=== PATIENT | male | born 1960 | race Caucasian/White ===

== ENCOUNTER 2019-09-01 06:36 | Observation (INO) | payer OTHER, MEDICAID, SELFPAY ==
[2019-09-01] VITALS (8 sets, daily range): BP systolic 147–184; BP diastolic 89–110; PULSE 66–102; RESP 15–19; TEMP 36.3–36.8; O2SAT 95–100; BMI 23.6
[2019-09-01 07:14] LABS: Add Manual Diff / Slide Review NO; Basophils Absolute Auto 100 /uL (0-100); Basophils Percent Auto 0.9 % (0-2); Eosinophils Absolute Auto 0 /uL (0-450); Eosinophils Percent Auto 0.1 % (2-4); Hematocrit 46.7 % (41-53); Hemoglobin 16.3 g/dL (13.5-17.5); Lymphocytes Absolute Auto 1600 /uL (1100-4500); Lymphocytes Percent Auto 11.4 % (25-40); Mean Corpuscular HGB Conc 34.9 % (30-36); Mean Corpuscular Hemoglobin 35.5 PG (26-34); Mean Corpuscular Volume 101.6 fL (80-100); Monocytes Absolute Auto 1100 /uL (0-900); Monocytes Percent Auto 7.7 % (3-14); Neutrophils Absolute Auto 11400 /uL (1500-7000); Neutrophils Percent Auto 79.9 % (50-75); Platelet Count 203 X10^3/uL (150-400); Red Blood Cell Count 4.59 X10^6/uL (4.5-5.9); Red Cell Distribution Width 13.3 % (11.6-14.8); White Blood Cell Count 14.3 X10^3/uL (4.5-11.0)
[2019-09-01 07:15] LABS: INR 0.9 (0.9-1.3); Prothrombin Time 10.4 SECONDS (10.1-12.7)
[2019-09-01 07:18] LABS: PTT Partial Thromboplastin Tim 31 SECONDS (26.4-36.2)
[2019-09-01 07:23] LABS: Alanine Aminotransferase 46 IU/L (<50); Albumin 4.4 g/dL (3.5-5.0); Albumin Globulin Ratio 1.3 (1.0-2.8); Aspartate Aminotransferase 88 IU/L (17-59); BUN Creatinine Ratio 14.3 (6-22); Bilirubin Total 2.6 mg/dL (0.2-1.3); Blood Urea Nitrogen 10 mg/dL (9-20); Carbon Dioxide 24 mmol/L (22-32); Chloride 97 mmol/L (98-107); Estimated Glomerular Filt Rate > 60.0 mL/min (>60); Globulin 3.5 g/dL (1.7-4.1); Glucose 145 mg/dL (70-100); Lipase 1171 U/L (23-300); Sodium 132 mmol/L (137-145); Total Protein 7.9 g/dL (6.3-8.2)
[2019-09-01 07:25] LABS: HEMOLYSIS 89 (0-50)
[2019-09-01 07:26] LABS: Alkaline Phosphatase 244 U/L (38-126); Potassium 3.9 mmol/L (3.4-5.1)
--- NOTE | 2019-09-01 07:33 | ED.ABDPAIN ---
HPI - Abdominal Pain General Chief Complaint: Abdominal Pain Stated Complaint: pancreatic pain Time Seen by Provider: 09/01/19 07:23 Source: patient Mode of arrival: Family Vehicle Limitations: no limitations History of Present Illness HPI narrative: Patient comes emergency department complaining of upper abdominal pain and nausea/vomiting for the last 2 days. The pain is located in the epigastric area to left upper quadrant, and radiates through to the back. Patient rates it as a 9/10. Nothing makes better or worse. Patient states feels similar to when he had alcohol induced pancreatitis about a year to ago. Patient states that he has not had any fevers. No chills. No dysuria. No blood in his stools or vomit. One episode of diarrhea, but this has not been ongoing. No chest pain, shortness of breath, or cough. Patient states he has had mild rhinorrhea and headache. no sick contacts. No other complaints at this time. Related Data Home Medications Medication Instructions Recorded Confirmed loratadine [Claritin] 10 mg PO DAILY PRN 09/01/19 09/01/19 Allergies Allergy/AdvReac Type Severity Reaction Status Date / Time lactase [From DAIRY AID] Allergy Unknown STOMACH Verified 12/10/18 10:55 UPSET Review of Systems Constitutional Constitutional: Denies chills, Denies fatigue, Denies fever(s), Denies frequent falls, Denies lethargy and Denies weakness Eyes Eyes: Denies change in vision, Denies eye discharge, Denies irritation and Denies loss of vision ENT Ears, Nose, Mouth, and Throat: Denies change in voice, Denies dizziness, Denies neck pain, Denies sore throat and Denies throat swelling Cardiovascular Cardiovascular: Denies chest pain, Denies irregular heart rhythm, Denies lightheadedness, Denies palpitations, Denies dyspnea, Denies dyspnea on exertion and Denies orthopnea Respiratory Respiratory: Denies cough, Denies dyspnea, Denies dyspnea on exertion and Denies wheezing Gastrointestinal Gastrointestinal: Reports abdominal pain, Denies change in bowel habits, Reports diarrhea, Reports nausea and Reports vomiting Genitourinary Genitourinary: Denies hematuria, Denies flank pain, Denies urinary incontinence and Denies urinary urgency Musculoskeletal Musculoskeletal: Denies back pain, Denies muscle weakness, Denies neck pain, Denies numbness and Denies tingling Integumentary/Breasts Skin/Breast: Denies pruritus, Denies erythema, Denies rash and Denies wounds Neurologic Neurologic: Denies behavioral changes, Denies confusion, Denies dizziness, Denies frequent falls, Denies loss of vision, Denies numbness, Denies tingling and Denies weakness Psychiatric Psychiatric: Denies anxiety, Denies behavioral changes, Denies confusion, Denies depression, Denies homicidal ideation and Denies suicidal ideation Endocrine Endocrine: Denies fatigue, Denies flushing and Denies palpitations Hematologic/Lymphatic Hematologic/Lymphatic: Denies easy bruising Allergic/Immunologic Allergic/Immunologic: Denies urticaria, Denies throat swelling and Denies wheezing Patient History Medical History Alcohol abuse (Acute) Alcoholic pancreatitis (Acute) Amputation finger (Acute) Back pain (Acute) Chronic pancreatitis (Acute) Fracture of finger, distal phalanx, open (Acute) Fracture of finger, middle phalanx, open (Acute) Onychomycosis (Chronic) Seizures (Acute) Social History household members: none Smoking Status: Current every day smoker alcohol intake: current substance use type: marijuana alcohol intake frequency: 0-2 drinks per day Substance Use Type: marijuana Exam Initial Vital Signs Initial Vital Signs: Vital Signs Temperature 97.7 F 09/01/19 06:49 Pulse Rate 88 09/01/19 06:49 Respiratory Rate 15 09/01/19 06:49 Blood Pressure 182/93 H 09/01/19 06:49 Pulse Oximetry 97 09/01/19 06:49 Const General: cooperative and well developed Nutritional Appearance: well nourished Orientation: alert, awake, oriented x3 and not confused [facility] Head: normocephalic and atraumatic Ears: external ears normal Nose: external nose normal and No nasal discharge Face and sinus: face symmetric and No dry mucous membranes Mouth: oral mucosae normal and moist mucous membranes Teeth and gingiva: dentition normal Eyes General: appearance normal, both eyes and all related structures Eyelids: eyelids normal Conjunctivae: conjunctivae normal Sclera: sclerae normal Pupils: PERRL EOM: EOM intact bilaterally Neck Neck: normal visual inspection, trachea midline, No lymphadenopathy, No midline deformity and No JVD Lymphatic: No lymphedema Chest Chest: normal inspection of the chest Resp Effort & Inspection: normal respiratory effort, able to speak in complete sentences, no respiratory distress and no use of accessory muscles Auscultation: clear to auscultation bilaterally, no rales, no rhonchi and no wheezes Cardio Rate: regular rate Rhythm: regular rhythm Heart Sounds: no click, no gallops, no murmurs and no rubs Pulses: normal peripheral pulses GI Inspection: non-distended Palpation: soft, no hepatosplenomegaly, No guarding, No pulsatile mass and tender (Moderate, epigastric and left upper quadrant.) Auscultation: normal bowel sounds Back/Spine/Pelvis Back: No CVA tenderness Cervical Spine: cervical ROM normal and No pain with cervical ROM Thoracic/Lumbar Spine: thoracic and lumbar spine normal to inspection Skin General: no rashes or lesions noted, No jaundice and No petechiae Neuro General: alert, oriented x3, gait normal and no focal motor deficits Speech: speech normal Extrem General: full ROM, no clubbing, cyanosis or edema, no pedal edema and no calf tenderness Psych Appearance: well kempt Mental Status: mental status grossly normal Attitude: cooperative Thought Content: normal and suicidality Judgment: judgment good Course Course Course Narrative: Patient was treated symptomatically in the emergency department with IV fluids, Zofran, and Dilaudid. He was worked up with labs, including CBC, CMP, and lipase. Lipase was found to be elevated at over 1100, and patient's white blood cell count was also elevated. As such, I did feel he should be admitted to the hospital, and I spoke with Dr. Sun after speaking with Dr. Keller and Dr. Lopez who stated patient needed to be admitted to the hospitalist service. She did agree to admit the patient to her service. At her request a CT of the abdomen and pelvis was performed and found to be unremarkable. Orders Ordered: Bisacodyl (Dulcolax) 10 mg [place] DAILY PRN PRN Reason: Constipation Heparin Sodium (Porcine) (Heparin) 5,000 unit SUBCUT BID ELEAZAR Sodium Chloride (Normal Saline 0.9%) 1,000 mls @ 150 mls/hr IV CONT ELEAZAR Last Admin: 09/01/19 12:03 Dose: 150 mls/hr Documented by: ACHELLOYD Influenza Virus Vaccine (Flu Vaccine) 0.5 ml IM .ONCE ONE Stop: 12/06/19 09:01 Morphine Sulfate (Morphine) 2 mg IV Q4HR PRN PRN Reason: Pain, Moderate (4-6) Last Admin: 09/01/19 16:04 Dose: 2 mg Documented by: Admin: 09/01/19 12:02 Dose: 2 mg Documented by: HOLLY Naloxone HCl (Narcan) 0.2 mg IV Q2MIN PRN PRN Reason: Opiate Reversal Ondansetron HCl (Zofran) 4 mg IV Q4HR PRN PRN Reason: Nausea And Vomiting Last Admin: 09/01/19 17:03 Dose: 4 mg Documented by: BALBINA Sodium Chloride (Normal Saline 0.9% Flush) 10 ml IV PRN PRN PRN Reason: Flush Discontinued Medications Hydromorphone HCl (Dilaudid) 1 mg IV NOW ONE Stop: 09/01/19 07:33 Last Admin: 09/01/19 07:37 Dose: 1 mg Documented by: BONNIE Hydromorphone HCl (Dilaudid) 1 mg IV NOW ONE Stop: 09/01/19 08:38 Last Admin: 09/01/19 08:55 Dose: 1 mg Documented by: BONNIE Sodium Chloride (Normal Saline 0.9%) 1,000 mls @ 1,000 mls/hr IV BOLUS ONE Stop: 09/01/19 08:31 Last Infusion: 09/01/19 08:40 Dose: 0 mls/hr Documented by: Admin: 09/01/19 07:37 Dose: 1,000 mls/hr Documented by: BONNIE Sodium Chloride (Normal Saline 0.9%) 1,000 mls @ 1,000 mls/hr IV BOLUS ONE Stop: 09/01/19 09:29 Last Infusion: 09/01/19 09:55 Dose: 0 mls/hr Documented by: Admin: 09/01/19 08:56 Dose: 1,000 mls/hr Documented by: BONNIE Lorazepam (Ativan) 1 mg IV NOW ONE Stop: 09/01/19 08:38 Last Admin: 09/01/19 08:55 Dose: 1 mg Documented by: BONNIE Ondansetron HCl (Zofran) 4 mg IV NOW ONE Stop: 09/01/19 07:33 Last Admin: 09/01/19 07:36 Dose: 4 mg Documented by: BONNIE Prochlorperazine (Compazine) 10 mg IV NOW ONE Stop: 09/01/19 08:38 Last Admin: 09/01/19 08:55 Dose: 10 mg Documented by: BONNIE Vital Signs Vital signs: Vital Signs - 8 hr 09/01/19 06:49 Temperature 97.7 F Pulse Rate 88 Respiratory Rate 15 Blood Pressure 182/93 H Pulse Oximetry 97 MDM - Abdominal Pain Medical Records Attestation: I reviewed the patient's medical records. Lab Data Attestation: I reviewed the patient's lab results. Result diagrams: 09/01/19 07:00 09/01/19 07:00 Labs: Lab Results 09/01/19 09/01/19 09/01/19 Range/Units 07:00 07:00 07:00 WBC 14.3 H (4.5-11.0) X10^3/uL RBC 4.59 (4.5-5.9) X10^6/uL Hgb 16.3 (13.5-17.5) g/dL Hct 46.7 (41-53) % MCV 101.6 H (80-100) fL MCH 35.5 H (26-34) PG MCHC 34.9 (30-36) % RDW 13.3 (11.6-14.8) % Plt Count 203 (150-400) X10^3/uL Neut % (Auto) 79.9 H (50-75) % Lymph % (Auto) 11.4 L (25-40) % [place] % (Auto) 7.7 (3-14) % Eos % (Auto) 0.1 L (2-4) % Baso % (Auto) 0.9 (0-2) % Neut # (Auto) 17542 H (2642-5762) /uL Lymph # (Auto) 1600 (7347-7501) /uL [place] # (Auto) 1100 H (0-900) /uL Eos # (Auto) 0 (0-450) /uL Baso # (Auto) 100 (0-100) /uL PT 10.4 (10.1-12.7) SECONDS INR 0.9 (0.9-1.3) APTT 31 (26.4-36.2) SECONDS Sodium 132 L (137-145) mmol/L Potassium 3.9 (3.4-5.1) mmol/L Chloride 97 L (98-107) mmol/L Carbon Dioxide 24 (22-32) mmol/L BUN 10 (9-20) mg/dL Creatinine 0.70 (0.66-1.25) mg/dL Estimated GFR > 60.0 (>60) mL/min BUN/Creatinine Ratio 14.3 (6-22) Glucose 145 H (70-100) mg/dL Calcium 9.0 (8.4-10.2) mg/dL Total Bilirubin 2.6 H (0.2-1.3) mg/dL AST 88 H (17-59) IU/L ALT 46 (<50) IU/L Alkaline Phosphatase 244 H (38-126) U/L Total Protein 7.9 (6.3-8.2) g/dL Albumin 4.4 (3.5-5.0) g/dL Globulin 3.5 (1.7-4.1) g/dL Albumin/Globulin Ratio 1.3 (1.0-2.8) Lipase 1171 H (23-300) U/L Imaging Data CT scan - abdomen: Radiologist's impression: EDURE: CT ABDOMEN PELVIS W CON INDICATIONS: abd pain/pancreatitis/leukocytosis TECHNIQUE: After the administration of intravenous contrast, 5 mm thick sections acquired from the diaphragm to the symphysis. 5 mm coronal and sagittal reformats were acquired. For radiation dose reduction, the following was used: automated exposure control, adjustment of mA and/or kV according to patient size. COMPARISON: None. FINDINGS: Image quality: Excellent. ABDOMEN: Lung bases: Lung bases are clear. Heart size is normal. Solid organs: Liver is normal in size and enhancement. Diffuse hepatic steatosis. Gallbladder is unremarkable. Biliary system is non dilated. Pancreas enhances normally. There is vague inflammatory change in the fat surrounding the pancreas which may represent chronic changes secondary to previous pancreatitis. No clear CT evidence of acute pancreatitis. Spleen is normal in size and enhancement. No adrenal nodules. Kidneys demonstrate normal size and enhancement, without hydronephrosis. Peritoneum and bowel: Bowel loops demonstrate normal wall thickness and caliber. No free fluid or air. Diverticulosis without evidence of diverticulitis. Nodes and vessels: No retroperitoneal or mesenteric adenopathy by size criteria. Numerous tiny peripancreatic lymph nodes are likely reactive in nature. No suspicious lymph nodes. Aorta and inferior vena cava are normal in size. Miscellaneous: No ventral hernias. PELVIS: Genitourinary: Very mild bladder wall thickening. Miscellaneous: No inguinal hernias or adenopathy. Bones: No suspicious bony lesions. No vertebral body compression fractures. IMPRESSION: 1. Vague peripancreatic inflammatory change and adjacent fat may be chronic. No clear CT evidence of acute pancreatitis. 2. Hepatic steatosis. 3. Diverticulosis Dictated by: Marshall Johnson M.D. on 09/01/2019 at 8:57 Approved by: Marshall Johnson M.D. on 09/01/2019 at 9:01 Discharge Plan Departure Patient Disposition: Admitted as Observation Clinical Impression: Alcoholic pancreatitis Qualifiers: Chronicity: acute Acute pancreatitis complication: no infection or necrosis Qualified Code(s): K85.20 - Alcohol induced acute pancreatitis without necrosis or infection Discharge Date/Time: 09/01/19 10:07 Admit Date/Time: 09/01/19 08:48 Admit Provider: Nereida Sun
[2019-09-01] MEDS: ONDANSETRON 4 MG/2 ML INJ IV ×2 (07:36→17:03)
[2019-09-01] MEDS: SODIUM CHLORIDE 0.9% 1,000 ML 1000 ML IV ×2 (07:37→08:56)
[2019-09-01] MEDS: HYDROMORPHONE 1 MG INJ IV ×2 (07:37→08:55)
--- NOTE | 2019-09-01 08:28 | DI.CT.S_ITS ---
PROCEDURE: CT ABDOMEN PELVIS W CON INDICATIONS: abd pain/pancreatitis/leukocytosis TECHNIQUE: After the administration of intravenous contrast, 5 mm thick sections acquired from the diaphragm to the symphysis. 5 mm coronal and sagittal reformats were acquired. For radiation dose reduction, the following was used: automated exposure control, adjustment of mA and/or kV according to patient size. COMPARISON: None. FINDINGS: Image quality: Excellent. ABDOMEN: Lung bases: Lung bases are clear. Heart size is normal. Solid organs: Liver is normal in size and enhancement. Diffuse hepatic steatosis. Gallbladder is unremarkable. Biliary system is non dilated. Pancreas enhances normally. There is vague inflammatory change in the fat surrounding the pancreas which may represent chronic changes secondary to previous pancreatitis. No clear CT evidence of acute pancreatitis. Spleen is normal in size and enhancement. No adrenal nodules. Kidneys demonstrate normal size and enhancement, without hydronephrosis. Peritoneum and bowel: Bowel loops demonstrate normal wall thickness and caliber. No free fluid or air. Diverticulosis without evidence of diverticulitis. Nodes and vessels: No retroperitoneal or mesenteric adenopathy by size criteria. Numerous tiny peripancreatic lymph nodes are likely reactive in nature. No suspicious lymph nodes. Aorta and inferior vena cava are normal in size. Miscellaneous: No ventral hernias. PELVIS: Genitourinary: Very mild bladder wall thickening. Miscellaneous: No inguinal hernias or adenopathy. Bones: No suspicious bony lesions. No vertebral body compression fractures. IMPRESSION: 1. Vague peripancreatic inflammatory change and adjacent fat may be chronic. No clear CT evidence of acute pancreatitis. 2. Hepatic steatosis. 3. Diverticulosis Dictated by: Marshall Johnson M.D. on 09/01/2019 at 8:57 Approved by: Marshall Johnson M.D. on 09/01/2019 at 9:01
[2019-09-01] MEDS: LORazepam 2 MG/ML INJ 1 MG IV (08:55)
[2019-09-01] MEDS: PROCHLORPERAZINE 10 MG/2 ML VIAL IV (08:55)
[2019-09-01] MEDS: MORPHINE 2 MG/ML INJ IV ×3 (12:02→20:17)
[2019-09-01] MEDS: SODIUM CHLORIDE 0.9% 1,000 ML 150 ML IV ×2 (12:03→20:18)
--- NOTE | 2019-09-01 14:01 | PC.NURSE ---
Day Shift- Report rec'd from JEFF Sargent in ED at 0948. Pt arrived to unit via stretcher at 1000, assisted to bed by RUBBER EXTRUSION MACHINE OPERATOR. Pt oriented to call light, NPO status. admission complete. Pt states he smokes 1 pack per day, 5-6 beers high octane daily. Pt's mother Carmen states pt has had alcohol withdrawal seizures in the community before. Pt aware of NPO status, mouth moisturizer and mouth swabs given by RUBBER EXTRUSION MACHINE OPERATOR. BP elevated on admit, pt and his mother state that his BP is always high when in the hospital and in the past when having gone to PCP, BP has been WNL. Dr. Gallo notified of pt's arrival around 1005. Called and spoke with Dr. gallo at 1245 regarding pt's mother's request for a plan of care update who will be leaving and coming back in the afternoon with Advance directive paperwork. Dr. Gallo to see pt today. IVF started per order.
--- NOTE | 2019-09-01 16:54 | PC.NURSE ---
Assumed care of pt at 1500. Pt resting in bed during bedside hand-off. BP elevated, reports pain. Medicating per mar for back and LUQ abd pain. Reports mild nausea. Dr. Sun notified. Rec VVO for Zofran. Supportive mother at bedside. Educated pt on ETOH withdrawal and cessation.
--- NOTE | 2019-09-01 19:00 | PM.HP.1 ---
History of Present Illness History of Present Illness Date Patient Seen: 09/01/19 Chief complaint: pancreatic pain Narrative: Dom sims is a 59-year-old male with past medical history significant for hypertension, alcohol dependence with history of alcohol withdrawal, and tobacco dependence who presented to the ED with progressive worsening abdominal pain. The patient reports that he began having mid abdominal pain 2 days ago. The pain is sharp in quality and radiates straight through to his back. He rates the pain at its worst a +10/10 in severity and is currently a +6/10 in severity. He is had associated nausea and vomiting. He reports that he has had pancreatitis with alcohol withdrawal 2 years ago and the pain is similar to that episode of pancreatitis. He reports alcohol dependence since high school and has underwent inpatient treatment several times. He currently endorses drinking ?at least a 6 pack of beer per night.? He will occasionally drink vodka as well. He is currently looking for it inpatient treatment locally. He recently moved back to [place] from [place] due to the of his stepfather. He currently complains of abdominal pain with nausea. He otherwise denies headache, chest pain, shortness of breath, fever, chills, dysuria, diarrhea or constipation. He had several episodes of diarrhea 2 days ago. He is mildly tremulous. He denies symptoms and does not feel like he is going through alcohol withdrawal. He denies headache, anxiety, hallucinations, delusions, paranoia, lightheadedness or dizziness, tremulousness, or irritability. In the ED the patient was found to have a lipase of 1171. Requested CT abdomen and pelvis be performed which demonstrated vague peripancreatic inflammatory change and adjacent fat may be chronic without clear CT evidence of acute pancreatitis and hepatic steatosis. The patient was admitted observation for acute pancreatitis. Patient History Medical History (Updated 09/02/19 @ 07:59 by Nereida Sun DO) Alcohol abuse (Acute) Alcoholic pancreatitis (Acute) Amputation finger (Acute) Back pain (Acute) Chronic pancreatitis (Acute) Fracture of finger, distal phalanx, open (Acute) Fracture of finger, middle phalanx, open (Acute) Onychomycosis (Chronic) Seizures (Acute) Surgical History History of surgical amputation of finger (Acute) Family & Social History Family History Mother Osteoarthritis Father Alcohol abuse Medical history unknown Social History: household members none Prior Living Arrangements House Safety & Behavioral: Feels Safe in Current Yes Environment Been Physically Hurt or No Threatened By a Person Suicidal Ideation Description None Suicide Plan Description No Plan Tobacco & Substance use: Tobacco type cigarettes Smoking Status Current every day smoker Smoking packs per day 1 alcohol intake current alcohol intake frequency 3 or more drinks per day Substance Use Type marijuana The patient is . He was to his for 16 years and she of pancreatic cancer. He has 2 healthy children, a son and a daughter. He is a current smoker, 1 ppd times 40 years. He drinks at least a six-pack of beer a night and sometimes vodka. He smokes marijuana occasionally, approximately once a month. He denies any other recreational drug use. 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 Meds Home Medications and Allergies Home Medications Medication Instructions Recorded Confirmed Type loratadine [Claritin] 10 mg PO DAILY PRN 09/01/19 09/01/19 History Allergies Allergy/AdvReac Type Severity Reaction Status Date / Time lactase [From DAIRY AID] Allergy Unknown STOMACH Verified 12/10/18 10:55 UPSET Review of Systems Review of Systems Narrative: A 10 system comprehensive review of systems was conducted with the patient and found to be negative except as above in the History of Present Illness. Exam Vital Signs (past 8 hours): - 09/01/19 13:55 09/01/19 15:25 Temperature 97.4 F L Pulse Rate 71 66 Respiratory Rate 18 Blood Pressure 181/99 H 169/101 H Pulse Oximetry 99 Oxygen Delivery Method Room Air Oxygen Flow Rate 0 Narrative Exam Narrative: General: Older gentleman lying in bed and in no acute distress, appears mildly uncomfortable, well-developed, well-nourished, anxious and mildly tremulous but otherwise appropriately interactive. HEENT: Normocephalic, atraumatic. External ears without defect. Pupils equal, round, and reactive to light and accommodation. Anicteric sclerae, moist conjunctivae, and no lid lag. Oropharynx free of erythema and cobble stoning with moist mucosa. Neck: Supple with full range of motion. No jugular venous distension. No bruits. No lymphadenopathy or thyromegaly. Cardiovascular: Regular rate and rhythm without murmurs, rubs, or gallops appreciated Pulmonary: Clear to auscultation bilaterally without crackles, wheezes, or rhonchi. Normal respiratory effort with no use of accessory muscles. Abdomen: Soft, bowel sounds present, mild mid abdominal pain, nondistended. No hepatosplenomegaly or masses appreciated. Extremities: No clubbing, cyanosis, or edema. Skin: Normal temperature, turgor, and texture; no rash, ulcers, or subcutaneous nodules appreciated. No stigmata of liver disease such as spider angiomata, telangiectasias, palmar erythema, caput medusae, or asterixis. Neurological: Cranial nerves grossly intact. Psychiatric: Anxious mood and flat affect. Alert and oriented to person, place, and time. Objective Labs Result Diagrams: 09/02/19 06:38 09/02/19 06:38 Labs: Laboratory Results - last 24 hr 09/01/19 09/01/19 09/01/19 07:00 07:00 07:00 WBC 14.3 H RBC 4.59 Hgb 16.3 Hct 46.7 MCV 101.6 H MCH 35.5 H MCHC 34.9 RDW 13.3 Plt Count 203 Neut % (Auto) 79.9 H Lymph % (Auto) 11.4 L Colbert % (Auto) 7.7 Eos % (Auto) 0.1 L Baso % (Auto) 0.9 Neut # (Auto) 75639 H Lymph # (Auto) 1600 Colbert # (Auto) 1100 H Eos # (Auto) 0 Baso # (Auto) 100 PT 10.4 INR 0.9 APTT 31 Sodium 132 L Potassium 3.9 Chloride 97 L Carbon Dioxide 24 BUN 10 Creatinine 0.70 Estimated GFR > 60.0 BUN/Creatinine Ratio 14.3 Glucose 145 H Calcium 9.0 Total Bilirubin 2.6 H AST 88 H ALT 46 Alkaline Phosphatase 244 H Total Protein 7.9 Albumin 4.4 Globulin 3.5 Albumin/Globulin Ratio 1.3 Lipase 1171 H Assessment & Plan Assessment & Plan narrative: Dom sims is a 59-year-old male with past medical history significant for hypertension, alcohol dependence with history of alcohol withdrawal, and tobacco dependence who presented to the ED with progressive worsening abdominal pain. 1. Acute alcoholic pancreatitis, present on admission. Active. -Patient presented with mid abdominal pain, nausea and vomiting. -Patient has alcohol dependency with his last drink 2 days ago. Patient has history of pancreatitis with alcohol withdrawal 2 years ago. -CT abdomen and pelvis with contrast demonstrated vague peripancreatic inflammatory change and adjacent fat may be chronic with no clear CT evidence of acute pancreatitis and hepatic steatosis. -Lipase 1171. Continue to trend lipase daily. -Continue bowel rest with NPO status. Plan to advance diet as tolerated to a clear liquid diet tomorrow. -Continue IV fluids with normal saline at 150 mL/hr. -Continue pain control with morphine 2 mg every 4 hours as needed for pain and Zofran 4 mg every 4 hours as needed for nausea 2. Alcohol dependence with possible early alcohol withdrawal, chronic, present on admission. Active. -Patient is tremulous and appears slightly anxious but denies any symptoms of alcohol withdrawal. He has gone through alcohol withdrawal several times in the past but denies DTs or seizures. The patient has been treated for alcohol dependency at several inpatient Treatment Centers. Patient drinks at least a 6 pack of beer a night with his last drink 2 days ago. -Continue IV fluid hydration as above. -Continue thiamine 100 mg IV daily. Once patient is able to take in PO will add multivitamin and folic acid to daily regimen. -Patient would like to quit drinking alcohol and highly recommended he abstain indefinitely. Consulted CONSTRUCTION AREA MANAGER for chemical dependency assessment and to provide resources Patient is admitted under observation status with expected length of stay less than 2 midnights due to severity of presenting symptoms, risk of adverse event, and complexity of treatment plan. 3. Tobacco dependence, chronic, present on admission. Stable. -Patient is a current smoker of 1 ppd. -Continue nicotine patch as needed for nicotine withdrawal. 4. Hypertension, chronic, present on admission. Stable. -blood pressure on admission elevated at 182/93 likely due to pain. -patient was on antihypertensive in the past which has since been discontinued as he reported he no longer needed it. -Ordered labetalol 10 mg every 4 hours as needed for SBP >180 mmHg sustained for 15 minutes. Treat underlying pain first. Patient is admitted under observation status with expected length of stay less than 2 midnights due to severity of presenting symptoms, risk of adverse event, and complexity of treatment plan.
[2019-09-01] MEDS: HEPARIN 5,000 UNIT/ML VIAL 5000 UNIT SUBCUT (20:17)
[2019-09-01 20:27] LABS: Bacteria Urine None Seen
[2019-09-01 20:29] LABS: Appearance Urine UA CLEAR; Bilirubin Urine UA NEGATIVE (NEGATIVE); Color Urine UA YELLOW; Glucose Urine UA NEGATIVE (Negative); Ketones Urine UA 1+ (NEGATIVE); Leukocyte Esterase Urine UA NEGATIVE (NEGATIVE); Nitrite Urine UA NEGATIVE (Negative); Occult Blood Urine UA NEGATIVE (Negative); Protein Urine UA NEGATIVE (Negative); Urobilinogen Urine UA 0.2 E.U./dL (0.2); pH Urine UA 6.5 (4.5-8.0)
[2019-09-01 20:34] LABS: UR Morphine/Opiate cutoff 300 Positive (Negative); Ur Creatinine Normal (Normal); Ur Specific Gravity Normal (Normal); Urine Amphetamines Negative (Negative); Urine Barbiturates Negative (Negative); Urine Benzodiazepines Negative (Negative); Urine Cocaine Negative (Negative); Urine MDMA Negative (Negative); Urine Methadone Negative (Negative); Urine Methamphetamines Negative (Negative); Urine Oxycodone Negative (Negative); Urine Phencyclidine Negative (Negative); Urine Tetrahydrocannabinol Negative (Negative); Urine Tricyclic Antidepressant Negative (Negative); Urine pH Normal (Normal)
[2019-09-01 21:04] LABS: RBC Urine 0-1/HPF (0-5/HPF); WBC Urine 0-1/HPF (0-5/HPF)
[2019-09-01 21:05] LABS: Culture Indicated Urine Cult Not Indicated; Urine Comments Microscopic Normal
[2019-09-01] MEDS: NICOTINE 21 MG PATCH TOP (21:18)
[2019-09-02] VITALS (8 sets, daily range): BP systolic 137–153; BP diastolic 73–98; PULSE 78–90; RESP 17–20; TEMP 36.2–37.8; O2SAT 95–100
[2019-09-02] MEDS: MORPHINE 2 MG/ML INJ IV ×6 (00:22→20:38)
[2019-09-02] MEDS: SODIUM CHLORIDE 0.9% 1,000 ML 150 ML IV ×2 (03:09→10:00)
--- NOTE | 2019-09-02 06:02 | PC.NURSE ---
Pt is AxOx3, Vitals stable with HTN. Complaints of back/abdominal pain rated 6-8 out of 10, relieved with Morphine. Kept NPO. Pt wanting to advance diet. CIWA=1 for minimal sweating. Seizure pads in place. Tele: NSR B/L SCDs on IVF running as ordered.
[2019-09-02 07:12] LABS: Hematocrit 40.6 % (41-53); Hemoglobin 14.1 g/dL (13.5-17.5); Mean Corpuscular HGB Conc 34.6 % (30-36); Mean Corpuscular Hemoglobin 35.4 PG (26-34); Mean Corpuscular Volume 102.1 fL (80-100); Platelet Count 125 X10^3/uL (150-400); Red Blood Cell Count 3.98 X10^6/uL (4.5-5.9); Red Cell Distribution Width 12.9 % (11.6-14.8); White Blood Cell Count 14.9 X10^3/uL (4.5-11.0)
[2019-09-02 07:13] LABS: Add Manual Diff / Slide Review YES
[2019-09-02 07:28] LABS: Alanine Aminotransferase 26 IU/L (<50); Albumin 3.3 g/dL (3.5-5.0); Albumin Globulin Ratio 1.1 (1.0-2.8); Alkaline Phosphatase 173 U/L (38-126); Aspartate Aminotransferase 56 IU/L (17-59); BUN Creatinine Ratio 6.7 (6-22); Bilirubin Total 1.3 mg/dL (0.2-1.3); Blood Urea Nitrogen 4 mg/dL (9-20); Calcium 7.9 mg/dL (8.4-10.2); Carbon Dioxide 27 mmol/L (22-32); Chloride 98 mmol/L (98-107); Estimated Glomerular Filt Rate > 60.0 mL/min (>60); Globulin 2.9 g/dL (1.7-4.1); Glucose 99 mg/dL (70-100); HEMOLYSIS 27 (0-50); Lipase 761 U/L (23-300); Magnesium 1.5 mg/dL (1.6-2.3); Potassium 3.1 mmol/L (3.4-5.1); Sodium 133 mmol/L (137-145); Total Protein 6.2 g/dL (6.3-8.2)
[2019-09-02 07:29] LABS: Cholesterol 119 mg/dL (140-199); HDL Cholesterol 45 mg/dL (40-60); Hemoglobin A1C% w Est Avg Glu 5.1 % (4.0-6.0); LDL Cholesterol Calculated 41 mg/dL (<100); Triglycerides 166 mg/dL (35-150)
[2019-09-02 07:30] LABS: Neutrophils Absolute Manual 12963 /uL (3000-5900); Total Cells Counted 100
[2019-09-02 07:31] LABS: Macrocytosis 1+
[2019-09-02 07:43] LABS: Procalcitonin 0.29 ng/mL (<0.5)
[2019-09-02] MEDS: HEPARIN 5,000 UNIT/ML VIAL 5000 UNIT SUBCUT ×2 (08:43→20:19)
[2019-09-02] MEDS: THIAMINE 100 MG in DEXTROSE 5 % IN WATER 50 ML 204 ML IV (08:45)
--- NOTE | 2019-09-02 08:57 | PC.NURSE ---
Addendum entered by Shauna George R.N. 09/02/19 14:50: After noon CIWA score is 1. Pt tolerated 150mls grape juice, 1 jello cup , and approx 100mls of beef broth without increase issue/symptoms. Pt has intermittent upper abd pain, more so to the left side radiating to mid and lower back 4-8/10. Decreases with IV Morphine X2 this shift. Addendum entered by Shauna George R.N. 09/02/19 11:45: 2nd CIWA score 1, for very mild headache. Stated after having 150ml of beef broth, felt sweaty, went slow, no increase in abd pain, nausea. Tolerating water. No further voiced concerns. Original Note: Day Shift- Pt OOB to chair with SBA, steady gait. IVF infusing per order, NS @ 150ml/hr. Rates 7/10 aching to upper abd more to left side, tender and aching to lower and mid back. Morphine IV prn given at 0840. Per verbal order by Dr. Sun at 0830, pt okay to have small amounts of clear liquids. Water and beef broth given. Pt instructed to sip slowly and stop if increase in nausea, abd pain, cramping. CIWA score 2, mild headache, mild nausea. Seizure precautions in place. Pt appropriate, Oriented X4.
--- NOTE | 2019-09-02 14:09 | CM.DANOTE ---
DCP Assessment: EMR reviewed: Patient is a 59 yr old male who was admitted for pancreatic pain and possible alcohol withdrawal. Patients PCP is Dr Keller. CM/RN met with patient and patients mother at the bedside and explained CM/RN role. Patient was alert and oriented x3 during CM visit. Patient lives in a single level home near his mother and is I with all ADL's and is able to drive. CM/RN asked if patient would like to like to talk in private? patient stated he was fine with his mother being there. CM/RN asked if patient how much alcohol he drinks daily. Patient stated he drinks at least a 6 pack of beer a night and usually a few other mixed drinks as well. Cm/RN asked if patient felt like he had a problem with alcohol patient stated he was fine. CM/Rn asked if patient would like any resources or information about AA or other alcohol treatment resources available? Patient stated he was fine and wasn't interested in any help. CM/RN gave patient CM/RN number if he changed his mind and would like services. Patient stated understanding. I:1st: [facility] 2nd: Medicaid Plan: D/C home with family when medically stable. Patients Current CIWA score is a 1 and patient was alert and oriented during visit. No identified D/C planning needs noted at this time. CM department will follow to determine if any new D/C planning needs arise. Karolina Lorenzo RN Discharge Planning/Care Management Advanced directive, confirm from FAMILY Start: 09/01/19 10:49 Freq: Q24H Status: Active Protocol: Document 09/02/19 11:57 AC (Rec: 09/02/19 11:58 AC [id number]) Advance Directive, confirm on record Time 11:58 Person contacted Tyesha-pt's mother, placed in soft chart Copy received Yes Advanced directive available on record Yes CM Discharge Assessment Start: 09/02/19 14:07 Freq: Status: Active Protocol: Document 09/02/19 14:07 HS (Rec: 09/02/19 14:08 HS [id number]) Discharge Planning Assessment Assigned Dental Appliance Mechanic Karolina Lorenzo RN DPOA/Assigned Designee Name Carmen Cohn (Mom) Contact Information [phone] History Provided By Patient,Family Member Has Patient been admitted in last 30 No days? Prior Living Arrangements House Household Members none Comment Mother lives in the house around the corner on same property Type of transporation used prior to Drives own vehicle admit Independent with ADL's Yes Is patient alert and oriented? Yes Discharge Plan Home Referrals Initiated None needed Whiteboard Updated in Patient Room with Yes name and ext. # of Dental Appliance Mechanic Review Status In Process Next Review Type Continued Stay Review
--- NOTE | 2019-09-02 14:58 | DIET.PN ---
Dietary Progress Note Assessment: Mr. Holliday is a 59 yom w/ hx of hypertension, alcohol dependence with history of alcohol withdrawal, and tobacco dependence who presents with progressive worsening abdominal pain. The patient reports that he began having mid abdominal pain a few days ago. He has a hx of pancreatitis x 2 yrs ago. He reports to drinking 6 beers each night and occasionally has vodka. He admits to eating frozen, high fat meals most nights, and often eats out with his mother. He has had a 10% weight loss since November. He reports improvement in appetite and is ready to eat something. HT: 175.26 cm WT: 72 kg UBW: 80 kg BMI: 23.5 Labs: Na: 133 L K: 3.1 L Cr: 0.60 L Ca: 7.9 L M.5 L AST: 88 H, 56 T. Bili: 2.6 H, 1.3 Lipase: 1171, 761 MNA: 12 Junior: 20 Nutrition Diagnosis: Excessive alcohol intake r/t alcohol addiction aeb elevated AST, lipase, reports >2 drinks/day, hx of pancreatitis. Interventions: 1. Eat nonfat or low-fat foods that meet the [place] Dietary Guidelines. Keep the total amount of fat that you eat to 25% to 30% of the calories that you eat (55 to 65 grams per day). 2. Eating small, low fat meals and drinking enough fluids may improve your pain. Choosing soft foods can also help decrease discomfort from pancreatitis. 3. Do not drink alcoholic beverages. 4. Drink at 64 oz of water each day. Diet Order: Clear Liquid EER: 2100 candelaria @ 30 candelaria/kg; 93-108 g @ 1.3-1.5g/kg Monitoring/Evaluations: weight, diet advance/tolerance, PO intake.
--- NOTE | 2019-09-02 15:31 | P.PN_ITS ---
Subjective Subjective Date Patient Seen: 09/02/19 Interval history: Dom sims is a 59-year-old male with past medical history significant for hypertension, alcohol dependence with history of alcohol withdrawal, and tobacco dependence who presented to the ED with progressive worsening abdominal pain. The patient is resting in bed comfortably. He reports he feels much better than yesterday. His mid abdominal pain has improved and is controlled with IV morphine. He no longer is nauseous. He reports he is hungry. Plan to advance diet to clear liquids as tolerated. He has no other complaints and denies headache, lightheadedness or dizziness, anxiety, tremulousness, shortness of breath, chest pain, nausea, vomiting, fever, chills, dysuria, diarrhea or constipation. He is voiding and eliminating without difficulty. He is up ambulating without assistance. Exam Vital Signs (past 8 hours): - 09/02/19 08:00 09/02/19 08:10 09/02/19 12:00 Temperature 99.3 F 97.2 F L 99 F Pulse Rate 81 78 90 Respiratory Rate 20 17 19 Blood Pressure 144/79 H 144/79 H 137/98 H Pulse Oximetry 96 95 98 Oxygen Delivery Method Room Air Oxygen Flow Rate 0 Narrative Exam Narrative: General: Older gentleman lying in bed and in no acute distress, appears mildly uncomfortable, well-developed, well-nourished, anxious and mildly tremulous but otherwise appropriately interactive. HEENT: Normocephalic, atraumatic. External ears without defect. Pupils equal, round, and reactive to light. Anicteric sclerae, moist conjunctivae, and no lid lag. Neck: Supple with full range of motion. No jugular venous distension. No lymphadenopathy or thyromegaly. Cardiovascular: Regular rate and rhythm without murmurs, rubs, or gallops appreciated. Pulmonary: Clear to auscultation bilaterally without crackles, wheezes, or rhonchi. Normal respiratory effort with no use of accessory muscles. Abdomen: Soft, bowel sounds present, mild mid abdominal tenderness improving, nondistended. No hepatosplenomegaly or masses appreciated. Extremities: No clubbing, cyanosis, or edema. Skin: Normal temperature, turgor, and texture; no rash, ulcers, or subcutaneous nodules appreciated. No stigmata of liver disease such as spider angiomata, telangiectasias, palmar erythema, caput medusae, or asterixis. Neurological: Cranial nerves grossly intact. Psychiatric: Anxious mood and flat affect. Alert and oriented to person, place, and time. Objective Labs Result Diagrams: 09/02/19 06:38 09/02/19 06:38 Labs: Laboratory Results - last 24 hr 09/01/19 09/01/19 09/02/19 19:55 19:55 06:38 WBC 14.9 H RBC 3.98 L Hgb 14.1 Hct 40.6 L MCV 102.1 H MCH 35.4 H MCHC 34.6 RDW 12.9 Plt Count 125 L Neut % (Auto) Not Reportable Lymph % (Auto) Not Reportable [place] % (Auto) Not Reportable Eos % (Auto) Not Reportable Baso % (Auto) Not Reportable Lymph # (Auto) Not Reportable [place] # (Auto) Not Reportable Baso # (Auto) Not Reportable Total Counted 100 Seg Neutrophils % 87.0 H Lymphocytes % (Manual) 5.0 L Atypical Lymphs % 3.0 H Monocytes % (Manual) 5.0 Neutrophils # (Manual) 92835 H RBC Morphology Not Reportable Macrocytosis 1+ H Sodium Potassium Chloride Carbon Dioxide BUN Creatinine Estimated GFR BUN/Creatinine Ratio Glucose Hemoglobin A1c Calcium Magnesium Total Bilirubin AST ALT Alkaline Phosphatase Total Protein Albumin Globulin Albumin/Globulin Ratio Triglycerides Cholesterol LDL Cholesterol, Calc HDL Cholesterol Lipase Procalcitonin Urine Color Yellow Urine Appearance Clear Urine pH 6.5 Ur Specific [place] 1.010 Urine Protein Negative Urine Glucose (UA) Negative Urine Ketones 1+ H Urine Occult Blood Negative Urine Nitrate Negative Urine Bilirubin Negative Urine Urobilinogen 0.2 Ur Leukocyte Esterase Negative Urine RBC 0-1/hpf Urine WBC 0-1/hpf Urine Bacteria None seen Ur Culture Indicated? Cult not indicated Micro UA Comment Microscopic normal U Morph 300 ng/mL cutoff Positive H Ur Oxycodone Screen Negative Urine Methadone Screen Negative Ur Barbiturates Screen Negative U Tricyclic Antidepress Negative Ur Phencyclidine Scrn Negative Ur Amphetamines Screen Negative U Methamphetamines Scrn Negative Ur MDMA Scrn (Ecstasy) Negative U Benzodiazepines Scrn Negative Urine Cocaine Screen Negative U Marijuana (THC) Screen Negative 09/02/19 09/02/19 09/02/19 06:38 06:38 06:38 WBC RBC Hgb Hct MCV MCH MCHC RDW Plt Count Neut % (Auto) Lymph % (Auto) [place] % (Auto) Eos % (Auto) Baso % (Auto) Lymph # (Auto) [place] # (Auto) Baso # (Auto) Total Counted Seg Neutrophils % Lymphocytes % (Manual) Atypical Lymphs % Monocytes % (Manual) Neutrophils # (Manual) RBC Morphology Macrocytosis Sodium 133 L Potassium 3.1 L Chloride 98 Carbon Dioxide 27 BUN 4 L Creatinine 0.60 L Estimated GFR > 60.0 BUN/Creatinine Ratio 6.7 Glucose 99 Hemoglobin A1c 5.1 Calcium 7.9 L Magnesium 1.5 L Total Bilirubin 1.3 AST 56 ALT 26 Alkaline Phosphatase 173 H Total Protein 6.2 L Albumin 3.3 L Globulin 2.9 Albumin/Globulin Ratio 1.1 Triglycerides Cholesterol LDL Cholesterol, Calc HDL Cholesterol Lipase 761 H Procalcitonin 0.29 Urine Color Urine Appearance Urine pH Ur Specific [place] Urine Protein Urine Glucose (UA) Urine Ketones Urine Occult Blood Urine Nitrate Urine Bilirubin Urine Urobilinogen Ur Leukocyte Esterase Urine RBC Urine WBC Urine Bacteria Ur Culture Indicated? Micro UA Comment U Morph 300 ng/mL cutoff Ur Oxycodone Screen Urine Methadone Screen Ur Barbiturates Screen U Tricyclic Antidepress Ur Phencyclidine Scrn Ur Amphetamines Screen U Methamphetamines Scrn Ur MDMA Scrn (Ecstasy) U Benzodiazepines Scrn Urine Cocaine Screen U Marijuana (THC) Screen 09/02/19 06:38 WBC RBC Hgb Hct MCV MCH MCHC RDW Plt Count Neut % (Auto) Lymph % (Auto) [place] % (Auto) Eos % (Auto) Baso % (Auto) Lymph # (Auto) [place] # (Auto) Baso # (Auto) Total Counted Seg Neutrophils % Lymphocytes % (Manual) Atypical Lymphs % Monocytes % (Manual) Neutrophils # (Manual) RBC Morphology Macrocytosis Sodium Potassium Chloride Carbon Dioxide BUN Creatinine Estimated GFR BUN/Creatinine Ratio Glucose Hemoglobin A1c Calcium Magnesium Total Bilirubin AST ALT Alkaline Phosphatase Total Protein Albumin Globulin Albumin/Globulin Ratio Triglycerides 166 H Cholesterol 119 L LDL Cholesterol, Calc 41 HDL Cholesterol 45 Lipase Procalcitonin Urine Color Urine Appearance Urine pH Ur Specific [place] Urine Protein Urine Glucose (UA) Urine Ketones Urine Occult Blood Urine Nitrate Urine Bilirubin Urine Urobilinogen Ur Leukocyte Esterase Urine RBC Urine WBC Urine Bacteria Ur Culture Indicated? Micro UA Comment U Morph 300 ng/mL cutoff Ur Oxycodone Screen Urine Methadone Screen Ur Barbiturates Screen U Tricyclic Antidepress Ur Phencyclidine Scrn Ur Amphetamines Screen U Methamphetamines Scrn Ur MDMA Scrn (Ecstasy) U Benzodiazepines Scrn Urine Cocaine Screen U Marijuana (THC) Screen Assessment & Plan Assessment & Plan narrative: Dom sims is a 59-year-old male with past medical history significant for hypertension, alcohol dependence with history of alcohol withdrawal, and tobacco dependence who presented to the ED with progressive worsening abdominal pain. 1. Acute alcoholic pancreatitis, present on admission. Active. -Patient presented with mid abdominal pain, nausea and vomiting. -Patient has alcohol dependency with his last drink 2 days ago. Patient has history of pancreatitis with alcohol withdrawal 2 years ago. -CT abdomen and pelvis with contrast demonstrated vague peripancreatic inflammatory change and adjacent fat may be chronic with no clear CT evidence of acute pancreatitis and hepatic steatosis. -Lipase 1171. Lipase down to 761. Continue to trend lipase daily. -Continued bowel rest with NPO status for 24 hours and will advance diet to a clear liquid and assess toleration. -Continue IV fluids with normal saline at 125 mL/hr. -Continue pain control with morphine 2 mg every 4 hours as needed for pain and Zofran 4 mg every 4 hours as needed for nausea. 2. Alcohol dependence with possible early alcohol withdrawal, chronic, present on admission. Active. -Patient is tremulous and appears slightly anxious but denies any symptoms of alcohol withdrawal. He has gone through alcohol withdrawal several times in the past but denies DTs or seizures. The patient has been treated for alcohol dependency at several inpatient Treatment Centers. Patient drinks at least a 6 pack of beer a night with his last drink 2 days ago. Patient has a history of seizure related to heat stroke and denies relation to alcohol use or withdrawal. -Ordered and will continue CIMS protocol to assess for alcohol withdrawal. Low threshold to start alcohol withdrawal treatment with lorazepam. -Continue IV fluid hydration as above. -Continue thiamine 100 mg IV daily. Once patient is able to take in PO will add multivitamin and folic acid to daily regimen. -Patient would like to quit drinking alcohol and highly recommended he abstain indefinitely. Consulted SOFTWARE INTEGRATION DEVELOPER for chemical dependency assessment and to provide resources 3. Tobacco dependence, chronic, present on admission. Stable. -Patient is a current smoker of 1 ppd. -Continue nicotine patch as needed for nicotine withdrawal. 4. Hypertension, chronic, present on admission. Stable. -Blood pressure on admission elevated at 182/93 likely due to pain. Blood pressures continue to be mildly elevated with SBP 140-150s and likely needs to be on antihypertensive medication which will consider to starting prior to discharge. -Patient was on antihypertensive in the past which has since been discontinued as he reported he no longer needed it. -Ordered labetalol 10 mg every 4 hours as needed for SBP >180 mmHg sustained for 15 minutes. Treat underlying pain first. Disposition: Patient likely to discharge home in the next 1-2 days once acute pancreatitis has resolved and he is tolerating p.o. intake.
[2019-09-02] MEDS: MAGNESIUM SULFATE 2 GM/50 ML PIGGYBACK IV (18:07)
--- NOTE | 2019-09-02 18:46 | PC.NURSE ---
Addendum entered by Britt Haji R.N. 09/02/19 22:10: Pt had relatively uneventful evening. MG rider infused, K+ rider infusing at this time. Tele NSR per ICU staff Med w/ morphine at 2030 w/fair relief. Call light w/in reach, bed alarm on for pt safety. Continue w/plan of care. Original Note: [id number] Shift note Pt Awake/alert, watching TV. Med at 1635 for back discomfort. Tele shows NSR per ICU staff. CiWa =1 Call light w/in reach, bed alrm on for pt safety.
[2019-09-02] MEDS: POTASSIUM CHLORIDE 60 MEQ in SODIUM CHLORIDE 0.9% 500 ML 88.333 ML IV (20:13)
[2019-09-02] MEDS: NICOTINE 21 MG PATCH TOP (20:18)
--- NOTE | 2019-09-03 00:10 | PC.NURSE ---
Addendum entered by Sarai De Leon R.N. 09/03/19 04:39: States lower back pain is currently 7/10; medicated with IV Morphine. Addendum entered by Sarai De Leon R.N. 09/03/19 00:40: Medicated with IV Morphine for complaint of 7/10 lower back pain. States gas pains have decreased since going for walk in [place]. Original Note: Patient is alert and oriented. Breath sounds CTA with RA sat of 98%. HRR w/telemetry reading of SR. BP elevated at 153/89; has been trending high. Denies nausea. BT present and is passing flatus; complains of gas pains so had CRUSHER AND BLENDER OPERATOR take patient for walk in [place]. Complains of 6/10 chronic back pain but too early for pain meds so given warm blanket for comfort. Voiding per urinal; denies dysuria, frequency or urgency. Able to move self in bed and is out of bed with standby assist; steady on feet. Does have a slight bilateral UE tremor which he states is baseline, and a slight headache; CIWA score is 2. Refusing SCD's despite education regarding DVT prevention; reminded to ankle wave. Seizure pads in place as per CIWA protocol. Fall risk score is moderate; bed alarm is activated.
[2019-09-03] MEDS: MORPHINE 2 MG/ML INJ IV ×2 (00:37→04:36)
[2019-09-03 03:05] VITALS: BP 158/92; PULSE 67; RESP 16; TEMP 36.7; O2SAT 99
[2019-09-03 06:14] LABS: Add Manual Diff / Slide Review NO; Basophils Absolute Auto 100 /uL (0-100); Basophils Percent Auto 0.6 % (0-2); Eosinophils Absolute Auto 0 /uL (0-450); Eosinophils Percent Auto 0.2 % (2-4); Hematocrit 37.7 % (41-53); Hemoglobin 13.2 g/dL (13.5-17.5); Lymphocytes Absolute Auto 1600 /uL (1100-4500); Lymphocytes Percent Auto 14.4 % (25-40); Mean Corpuscular HGB Conc 34.9 % (30-36); Mean Corpuscular Hemoglobin 35.5 PG (26-34); Mean Corpuscular Volume 101.8 fL (80-100); Monocytes Absolute Auto 900 /uL (0-900); Monocytes Percent Auto 8.5 % (3-14); Neutrophils Absolute Auto 8500 /uL (1500-7000); Neutrophils Percent Auto 76.3 % (50-75); Platelet Count 121 X10^3/uL (150-400); Red Cell Distribution Width 12.8 % (11.6-14.8); White Blood Cell Count 11.1 X10^3/uL (4.5-11.0)
[2019-09-03 06:26] LABS: Blood Urea Nitrogen 5 mg/dL (9-20); Calcium 8.2 mg/dL (8.4-10.2); Carbon Dioxide 27 mmol/L (22-32); Chloride 98 mmol/L (98-107); Estimated Glomerular Filt Rate > 60.0 mL/min (>60); Glucose 117 mg/dL (70-100); HEMOLYSIS < 15 (0-50); Magnesium 2.2 mg/dL (1.6-2.3); Potassium 3.7 mmol/L (3.4-5.1); Sodium 131 mmol/L (137-145)
[2019-09-03 06:37] LABS: Lipase 226 U/L (23-300)
[2019-09-03 06:44] LABS: Procalcitonin 0.24 ng/mL (<0.5)
[2019-09-03 08:00] VITALS: BP 170/91; PULSE 83; TEMP 37; O2SAT 93
[2019-09-03] MEDS: LOSARTAN 25 MG TABLET PO (09:41)
[2019-09-03] MEDS: THIAMINE 100 MG TABLET PO (09:42)
[2019-09-03] MEDS: MULTIVITAMIN 1 TABLET 1 TAB PO (09:42)
[2019-09-03] MEDS: HYDROCODONE/ACET 5/325 TABLET 1 TAB PO (09:42)
--- NOTE | 2019-09-03 09:46 | PC.NURSE ---
Addendum entered by Shauna George R.N. 09/03/19 13:26: Discharge summary packet reviewed with pt and his mother Carmen. No voiced concerns at this time. Pt given prescription for [place], other prescriptions electronically sent to [facility] by . Pt very anxious to leave, cooperative. Pt left unit up ad [place] with SKETCH MAKER escort. Pt left in no distress at 1319 with his mother present to drive him home. Addendum entered by Shauna George R.N. 09/03/19 10:23: Pt reports no BM since last Thursday 08/30. Mild bloating, denies constipation, denies nausea. Original Note: Day Shift- Spoke with Dr. Sun around 0900, IVF stopped, increased diet, pt had 100% of toast and banana, apple juice, tolerating. No nausea, no increase in abd pain. Explained transition from IV to po pain meds. Explained lipase level WNL, pain should be decreasing. Pt's pain med interval increased. Gave prn [place] after eaten breakfast. Dr. Sun plan to discharge later today if remains stable. Pt aware. Pt very eager to return home. OOB indep in room with steady gait, denies light-headedness or dizziness.
--- NOTE | 2019-09-03 10:13 | PM.DS.1 ---
History of Present Illness History of Present Illness Chief complaint: pancreatic pain Narrative: Written by myself Dr. Sun: Dom sims is a 59-year-old male with past medical history significant for hypertension, alcohol dependence with history of alcohol withdrawal, and tobacco dependence who presented to the ED with progressive worsening abdominal pain. The patient reports that he began having mid abdominal pain 2 days ago. The pain is sharp in quality and radiates straight through to his back. He rates the pain at its worst a +10/10 in severity and is currently a +6/10 in severity. He is had associated nausea and vomiting. He reports that he has had pancreatitis with alcohol withdrawal 2 years ago and the pain is similar to that episode of pancreatitis. He reports alcohol dependence since high school and has underwent inpatient treatment several times. He currently endorses drinking ?at least a 6 pack of beer per night.? He will occasionally drink vodka as well. He is currently looking for it inpatient treatment locally. He recently moved back to [place] from [place] due to the of his stepfather. He currently complains of abdominal pain with nausea. He otherwise denies headache, chest pain, shortness of breath, fever, chills, dysuria, diarrhea or constipation. He had several episodes of diarrhea 2 days ago. He is mildly tremulous. He denies symptoms and does not feel like he is going through alcohol withdrawal. He denies headache, anxiety, hallucinations, delusions, paranoia, lightheadedness or dizziness, tremulousness, or irritability. In the ED the patient was found to have a lipase of 1171. Requested CT abdomen and pelvis be performed which demonstrated vague peripancreatic inflammatory change and adjacent fat may be chronic without clear CT evidence of acute pancreatitis and hepatic steatosis. The patient was admitted observation for acute pancreatitis. Discharge Providers Provider Date of admission: 09/01/19 08:48 Discharge Date: 09/03/19 Primary care physician: Dom Keller MD Consults: 09/01/19 10:59 Consult to WAREHOUSE SHIFT SUPERVISOR - Bad Work Gatherer Routine Comment: WAREHOUSE SHIFT SUPERVISOR Consult: Substance Abuse Assess 09/01/19 20:35 Consult to Dietitian, Adult Routine Comment: Reason For Exam: pancreatitis, etoh dependence Discharge provider: Nereida Sun DO Summary Hospital Course Discharge Diagnosis: 1. Acute alcoholic pancreatitis, present on admission. Resolved. 2. Alcohol dependence without alcohol withdrawal, chronic, present on admission. Stable. 3. Tobacco dependence, chronic, present on admission. Stable. 4. Hypertension, chronic, present on admission. Stable. Hospital Course: Dom sims is a 59-year-old male with past medical history significant for hypertension, alcohol dependence with history of alcohol withdrawal, and tobacco dependence who presented to the ED with progressive worsening abdominal pain. 1. Acute alcoholic pancreatitis, present on admission. Resolved. -Patient presented with mid abdominal pain, nausea and vomiting. -Patient has alcohol dependency with his last drink 2 days ago. Patient has history of pancreatitis with alcohol withdrawal 2 years ago. -CT abdomen and pelvis with contrast demonstrated vague peripancreatic inflammatory change and adjacent fat may be chronic with no clear CT evidence of acute pancreatitis and hepatic steatosis. -Initial lipase 1171. Continue to trend lipase daily and normalized at 226. -Continued bowel rest with NPO status for 24 hours and advanced diet as tolerated to low residue. -Continued IV fluids until adequately hydrated then discontinued. -Continued pain control with morphine 2 mg every 4 hours and transition to hydrocodone as needed for pain and Zofran 4 mg every 4 hours as needed for nausea. -Highly recommended alcohol cessation indefinitely and inpatient treatment program. 2. Alcohol dependence without alcohol withdrawal, chronic, present on admission. Stable. -Patient initially was tremulous and appeared slightly anxious but denies any symptoms of alcohol withdrawal. He has gone through alcohol withdrawal several times in the past but denies DTs or seizures. The patient has been treated for alcohol dependency at several inpatient Treatment Centers. Patient drinks at least a 6 pack of beer a night with his last drink 2 days ago. Patient has a history of seizure related to heat stroke and denies relation to alcohol use or withdrawal. -Continued CIWA protocol to assess for alcohol withdrawal for which patient had very low scores with last CIWA score 1 and no signs of alcohol withdrawal throughout hospitalization. Low threshold to start alcohol withdrawal treatment with lorazepam. -Continued IV fluid hydration as above. -Continued thiamine 100 mg IV daily. Once patient is able to take in PO will add multivitamin and folic acid to daily regimen. -Patient would like to quit drinking alcohol and highly recommended he abstain indefinitely. Consulted WAREHOUSE SHIFT SUPERVISOR for chemical dependency assessment and to provide resources 3. Tobacco dependence, chronic, present on admission. Stable. -Patient is a current smoker of 1 ppd. -Continued nicotine patch as needed for nicotine withdrawal. -Highly recommended smoking cessation indefinitely. 4. Hypertension, chronic, present on admission. Stable. -Blood pressure on admission elevated at 182/93 likely due to pain. Blood pressures continued to be mildly elevated with SBP 140-150s. -Patient was on antihypertensive in the past which has since been discontinued as he reported he no longer needed it. Ordered labetalol 10 mg every 4 hours as needed for SBP >180 mmHg sustained for 15 minutes. Treated underlying pain first. Once the patient was tolerating oral intake started losartan 25 mg daily which may need to be titrated up by PCP. Exam Vital Signs (past 8 hours): - 09/03/19 03:05 09/03/19 08:00 Temperature 98.1 F 98.6 F Pulse Rate 67 83 Respiratory Rate 16 Blood Pressure 158/92 H 170/91 H Pulse Oximetry 99 93 Oxygen Delivery Method Room Air Oxygen Flow Rate 0 Narrative Exam Narrative: General: Older gentleman standing in room and in no acute distress, well-developed, well-nourished, mildly anxious and mildly tremulous but otherwise appropriately interactive. HEENT: Normocephalic, atraumatic. External ears without defect. Pupils equal, round, and reactive to light. Anicteric sclerae, moist conjunctivae, and no lid lag. Neck: Supple with full range of motion. No jugular venous distension. No lymphadenopathy or thyromegaly. Cardiovascular: Regular rhythm, mildly tachycardic, without murmurs, rubs, or gallops appreciated. Pulmonary: Clear to auscultation bilaterally without crackles, wheezes, or rhonchi. Normal respiratory effort with no use of accessory muscles. Abdomen: Soft, bowel sounds present, abdominal tenderness resolved, nondistended. No hepatosplenomegaly or masses appreciated. Extremities: No clubbing, cyanosis, or edema. Skin: Normal temperature, turgor, and texture; no rash, ulcers, or subcutaneous nodules appreciated. No stigmata of liver disease such as spider angiomata, telangiectasias, palmar erythema, caput medusae, or asterixis. Neurological: Cranial nerves grossly intact. Psychiatric: Anxious mood and flat affect. Alert and oriented to person, place, and time. Objective Labs Result Diagrams: 09/03/19 05:55 09/03/19 05:55 Labs: Laboratory Results - last 24 hr 1209/03/19 09/03/19 05:55 05:55 05:55 WBC 11.1 H RBC 3.70 L Hgb 13.2 L Hct 37.7 L MCV 101.8 H MCH 35.5 H MCHC 34.9 RDW 12.8 Plt Count 121 L Neut % (Auto) 76.3 H Lymph % (Auto) 14.4 L [place] % (Auto) 8.5 Eos % (Auto) 0.2 L Baso % (Auto) 0.6 Neut # (Auto) 8500 H Lymph # (Auto) 1600 [place] # (Auto) 900 Eos # (Auto) 0 Baso # (Auto) 100 Sodium Potassium Chloride Carbon Dioxide BUN Creatinine Estimated GFR BUN/Creatinine Ratio Glucose Calcium Magnesium Lipase 226 D Procalcitonin 0.24 09/03/19 05:55 WBC RBC Hgb Hct MCV MCH MCHC RDW Plt Count Neut % (Auto) Lymph % (Auto) [place] % (Auto) Eos % (Auto) Baso % (Auto) Neut # (Auto) Lymph # (Auto) [place] # (Auto) Eos # (Auto) Baso # (Auto) Sodium 131 L Potassium 3.7 Chloride 98 Carbon Dioxide 27 BUN 5 L Creatinine 0.50 L Estimated GFR > 60.0 BUN/Creatinine Ratio 10.0 Glucose 117 H Calcium 8.2 L Magnesium 2.2 Lipase Procalcitonin Discharge Plan Discharge Plan Patient Disposition: Home Discharge comment: You are being discharged home. Please abstain from alcohol indefinitely. I highly encourage you to seek treatment at an inpatient facility versus outpatient. Please also abstain from smoking indefinitely and you were prescribed nicotine patch daily to help christi nicotine withdrawal. Please follow-up with your primary care physician, Dr. Keller, at your scheduled appointment regarding your hospitalization for alcohol induced pancreatitis and alcohol dependence. Discharge orders & Medications Prescriptions: New hydrocodone-acetaminophen 5-325 mg tablet 1 tab PO Q8H PRN (Reason: pain) Qty: 5 RF: 0 folic acid 400 mcg Tablet 0.4 mg PO DAILY Qty: 30 RF: 0 multivitamin [Tab-A-Andrae] Tablet 1 tab PO DAILY Qty: 30 RF: 0 losartan 25 mg Tablet 25 mg PO DAILY Qty: 30 RF: 0 nicotine 21 mg/24 hr Patch 24 Hour 21 mg topical BEDTIME Qty: 21 RF: 0 thiamine HCl (vitamin B1) [Vitamin B-1] 100 mg Tablet 100 mg PO DAILY Qty: 30 RF: 0 Continued loratadine [Claritin] 10 mg Tablet 10 mg PO DAILY PRN (Reason: Allergy Symptoms) RF: 0 Follow up/Referrals: Dom Keller MD [Primary Care Provider] - 09/10/19 2:15 pm (appt:09/10 @ 2:[address] keller please arrive 15 minutes prior to scheduled appointment (2:15)) Diet/Activity/Treatments Diet: Diet as Tolerated Diet comment: low residue, soft and bland diet Activity: Activity as tolerated Visit Report/Discharge Packet Instructions: Smoking Cessation Drugs: Nicotine Replacement Products, Alcohol Use Disorder, Essential Hypertension, Low-Fiber/Low-Residue Diet, DI for Pancreatitis, Losartan Visit Report Forms: Patient Portal/API, Stroke Signs & Symptoms Discharge Data Primary Care Provider: Dom Keller Attending Provider: Nereida Sun Admit Date/Time: 09/01/19 08:48 Discharges patient from system. Discharge Date/Time: 09/03/19 13:19
--- NOTE | 2019-09-03 11:48 | CM.SWNOTE ---
MAINTENANCE AND ENGINEERING MANAGER Note: Reviewed chart; pt then discussed in morning multidisciplinary rounds, Dr Sun will DC pt home today because he is medically cleared. Dr Sun hopeful pt will be agreeable to accepting information from this MAINTENANCE AND ENGINEERING MANAGER on [place] specific inpt CD options. This MAINTENANCE AND ENGINEERING MANAGER met w/pt before his DC, pt dressed and eagerly awaiting the opportunity to leave the hospital. This MAINTENANCE AND ENGINEERING MANAGER reviewed Dr Sun's hope for him and pt states he plans to remain sober, he admits he recently lost his Dad, and he benefited from inpt CD stays (30 day stays) in the past. Inevitably, pt states he understands relapse happens, this MAINTENANCE AND ENGINEERING MANAGER urges pt to understand relapse is an expectation not an exception and strongly encouraged him to continue his current sobriety and seek the resources to assist in grief processing and CD treatment/recovery. Pt appreciative. P: DC home today w/mom, pt denies the need for CD resources Phuong Perez MAINTENANCE AND ENGINEERING MANAGER
[2019-09-03] MEDS: INFLUENZA VACCINE 0.5 ML SYRINGE IM (13:06)
[2019-09-03] MEDS: FOLIC ACID 0.4 MG TABLET PO (13:06)
== END 2019-09-03 13:19 | disposition home or self-care (01) ==
LOC: ED 08:37 → AC 08:49
PROVIDERS: Emergency Medicine; Admitting Provider Internal Medicine; Emergency Provider Emergency Medicine; PCP Student in an Organized Health Care Education/Training Program; Visit Provider Internal Medicine
DX: K85.20 Alcohol induced acute pancreatitis without necrosis or infection (principal); R10.13 Epigastric pain; F10.20 Alcohol dependence, uncomplicated; M54.9 Dorsalgia, unspecified; R11.2 Nausea with vomiting, unspecified; Z23 Encounter for immunization; F17.210 Nicotine dependence, cigarettes, uncomplicated; I10 Essential (primary) hypertension
CPT/HCPCS: 36415; 74177; 80048; 80053; 80061; 80305; 81001; 82962; 83036; 83690; 83735; 84145; 85025; 85610; 85730; 90471; 90656; 93005; 96361; 96374; 96375; 96376; 99283; 99284; 99406; G0378; J0780; J1170; J1644; J2060; J2270; J2405; J3480; Q2038; Q9967

== ENCOUNTER 2020-07-15 13:24 | Emergency (ER) | payer OTHER, MEDICAID, SELFPAY ==
[2019-09-06 16:45] VITALS: BMI 23.6
[2020-07-15 13:32] VITALS: BP 126/74; PULSE 82; RESP 15; TEMP 36.1; O2SAT 97; BMI 22.8
== END 2020-07-15 13:53 | disposition left against medical advice (07) ==
PROVIDERS: Emergency Provider Emergency Medicine; PCP Student in an Organized Health Care Education/Training Program
CPT/HCPCS: 99281

== ENCOUNTER 2022-03-08 16:23 | Inpatient (IN) | payer OTHER, MEDICAID, SELFPAY ==
[2019-09-06 16:45] VITALS: BMI 23.6
[2022-03-08] VITALS (15 sets, daily range): BP systolic 149–195; BP diastolic 88–108; PULSE 83–104; RESP 15–26; TEMP 36.3–37; O2SAT 93–99; BMI 25.8; BMI 23.3
[2022-03-08 17:07] LABS: Add Manual Diff / Slide Review NO; Basophils Absolute Auto 100 /uL (0-100); Basophils Percent Auto 0.7 % (0-2); Eosinophils Absolute Auto 0 /uL (0-450); Hematocrit 41.8 % (41-53); Hemoglobin 14.7 g/dL (13.5-17.5); Lymphocytes Absolute Auto 1600 /uL (1100-4500); Lymphocytes Percent Auto 11.6 % (25-40); Mean Corpuscular HGB Conc 35.1 % (30-36); Mean Corpuscular Hemoglobin 35.7 PG (26-34); Mean Corpuscular Volume 101.7 fL (80-100); Monocytes Absolute Auto 1100 /uL (0-900); Monocytes Percent Auto 8.2 % (3-14); Neutrophils Absolute Auto 10800 /uL (1500-7000); Neutrophils Percent Auto 79.5 % (50-75); Platelet Count 109 X10^3/uL (150-400); Red Blood Cell Count 4.11 X10^6/uL (4.5-5.9); Red Cell Distribution Width 13.4 % (11.6-14.8); White Blood Cell Count 13.6 X10^3/uL (4.5-11.0)
[2022-03-08] MEDS: SODIUM CHLORIDE 0.9% 1,000 ML 1000 ML IV ×2 (17:08→21:33)
[2022-03-08] MEDS: HYDROMORPHONE 1 MG INJ IV ×3 (17:08→21:47)
[2022-03-08] MEDS: ONDANSETRON 4 MG/2 ML INJ IV (17:08)
[2022-03-08] MEDS: PHENobarbital 65 MG/ML VIAL 130 MG IV (17:08)
[2022-03-08 17:23] LABS: Alanine Aminotransferase 43 IU/L (<50); Albumin 4.6 g/dL (3.5-5.0); Albumin Globulin Ratio 1.5 (1.0-2.8); Alkaline Phosphatase 175 U/L (38-126); Aspartate Aminotransferase 97 IU/L (17-59); BUN Creatinine Ratio 10.2 (6-22); Bilirubin Total 1.8 mg/dL (0.2-1.3); Blood Urea Nitrogen 5 mg/dL (9-20); Calcium 8.8 mg/dL (8.4-10.2); Carbon Dioxide 25 mmol/L (22-32); Chloride 98 mmol/L (98-107); Estimated Glomerular Filt Rate > 60 mL/min (>60); Ethanol (ETOH) < 10 mg/dL; Glucose 135 mg/dL (80-110); HEMOLYSIS 31 (0-50); Lipase 739 U/L (23-300); Potassium 3.7 mmol/L (3.4-5.1); Sodium 133 mmol/L (137-145); Total Protein 7.6 g/dL (6.3-8.2)
--- NOTE | 2022-03-08 18:11 | ED.GENADULT ---
HPI - General Adult General Chief complaint: Abdominal Pain Stated complaint: Pancreatic pain Time Seen by Provider: 03/08/22 16:50 Source: patient Mode of arrival: Ambulatory Limitations: no limitations History of Present Illness HPI narrative: Patient is a 62-year-old male. Has a known history of alcohol abuse. States he drinks on a daily basis. His last drink was yesterday afternoon. He has withdrawn from alcohol in the past. States he yesterday afternoon he started to have left-sided mid back discomfort. He states that since that time it has worsened. He has had nausea and vomiting. No change in bowel habits. No fevers. He states this feels very similar to his prior episodes of pancreatitis. He has had 2 prior episodes of pancreatitis. The last 1 being approximately 3 years ago. He states that the last to episodes caused by his alcohol use. He tried to drink some water earlier today but had an increase in discomfort and also vomiting. Related Data Previous Rx's Medication Instructions Recorded nicotine 21 mg/24 hr daily 21 mg topical BEDTIME #21 ea 09/03/19 transdermal patch Allergies Allergy/AdvReac Type Severity Reaction Status Date / Time lactase [From DAIRY AID] Allergy Unknown STOMACH Verified 03/08/22 16:38 UPSET Review of Systems Constitutional Constitutional: Denies fever(s) Cardiovascular Cardiovascular: Denies chest pain and Denies dyspnea Respiratory Respiratory: Denies dyspnea Gastrointestinal Gastrointestinal: Reports system reviewed and no additional complaints, except as documented Genitourinary Genitourinary: Reports system reviewed and no additional complaints, except as documented Musculoskeletal Musculoskeletal: Reports system reviewed and no additional complaints, except as documented Integumentary/Breasts Skin/Breast: Reports system reviewed and no additional complaints, except as documented Hematologic/Lymphatic On Anticoagulants: No Patient History Medical History Alcohol abuse Alcoholic pancreatitis Amputation finger Back pain Chronic pancreatitis Fracture of finger, distal phalanx, open Fracture of finger, middle phalanx, open Onychomycosis Seizures Surgical History History of surgical amputation of finger Family History Mother Osteoarthritis Father Alcohol abuse Medical history unknown Social History household members: none Smoking Status: Current every day smoker alcohol intake: current substance use type: marijuana Smoking Status: Current every day smoker alcohol intake frequency: 3 or more drinks per day Alcohol type: beer Substance Use Type: marijuana Exam Initial Vital Signs Initial Vital Signs: Vital Signs Temperature 97.4 F L 03/08/22 16:32 Pulse Rate 104 H 03/08/22 16:32 Respiratory Rate 20 03/08/22 16:32 Blood Pressure 195/106 H 03/08/22 16:32 Pulse Oximetry 97 03/08/22 16:32 Oxygen Delivery Method 03/08/22 16:32 Const General: cooperative and comfortable HENMT Head: normal to inspection and normocephalic Resp Effort & Inspection: normal respiratory effort Auscultation: clear to auscultation bilaterally Cardio Rate: regular rate Rhythm: regular rhythm GI Inspection: normal to inspection Palpation: soft, No guarding and No tender Back/Spine/Pelvis Other: Mild left-sided CVA tenderness Skin General: no rashes or lesions noted Neuro General: patient alert, patient awake and moves all extremities Extrem General: normal to inspection and capillary refill normal Psych Appearance: grossly normal and well kempt Scores [facility] [place] coma scale eye opening: Spontaneous Herbie coma scale verbal response: Orientated Herbie coma scale motor response: Obey commands Herbie coma scale total score: 15 Course Orders Ordered: ED Orders 03/08/22 16:51 Complete Blood Count AUTO DIFF Stat Comprehensive Metabolic Panel Stat ETOH [Ethanol (ETOH)] Stat Lipase Stat 03/08/22 18:20 Urinalysis and Microscopic Stat 03/08/22 19:41 US abdomen limited Stat Al Hydrox/Mg Hydrox/Simethicone (Mag Hydrox/Alum/Simeth 30 Ml Udc) 30 ml PO Q6HR PRN PRN Reason: Dyspepsia Folic Acid (Folic Acid 1 Mg Tablet) 1 mg PO DAILY ELEAZAR Hydromorphone HCl (Hydromorphone 1 Mg Inj) 1 mg IV Q3H PRN PRN Reason: Pain, Moderate (4-6) Last Admin: 03/08/22 21:47 Dose: 1 mg Documented By: LIU Sodium Chloride (Normal Saline 0.9%) 1,000 mls @ 150 mls/hr IV CONT ELEAZAR Last Infusion: 03/08/22 20:14 Dose: 0 mls/hr Documented By: LUIS DANIEL Admin: 03/08/22 19:46 Dose: 150 mls/hr Documented By: LUIS DANIEL Sodium Chloride (Normal Saline 0.9%) 1,000 mls @ 125 mls/hr IV CONT ELEAZAR Last Admin: 03/08/22 22:39 Dose: 125 mls/hr Documented By: LIU Sodium Chloride (Normal Saline 0.45%) 1,000 mls @ 100 mls/hr IV CONT ELEAZAR Lorazepam (Lorazepam 2 Mg/Ml Inj) 0 mg IV CIWAPRN PRN; Protocol PRN Reason: Alcohol Withdrawal Lorazepam (Lorazepam 1 Mg Tablet) 2 mg PO Q8HR ELEAZAR; Protocol Last Admin: 03/08/22 22:09 Dose: 2 mg Documented By: LIU Multivitamins (Multivitamin 1 Tablet) 1 tab PO DAILY ELEAZAR Naloxone HCl (Naloxone 0.4 Mg/Ml Vial) 0.2 mg IV Q2MIN PRN PRN Reason: Opiate Reversal Nicotine (Nicotine 21 Mg Patch) 21 mg TOP DAILY [facility] Ondansetron HCl (Ondansetron 4 Mg/2 Ml Inj) 4 mg IV Q6HR PRN PRN Reason: Nausea And Vomiting Oxycodone HCl (Oxycodone Ir 5 Mg Tablet) 5 mg PO Q4HR PRN PRN Reason: Pain, Moderate (4-6) Thiamine HCl (Thiamine 100 Mg Tablet) 100 mg PO DAILY [facility] Stop: 03/12/22 09:01 Discontinued Medications Hydromorphone HCl (Hydromorphone 1 Mg Inj) 1 mg IV NOW ONE Stop: 03/08/22 16:51 Last Admin: 03/08/22 17:08 Dose: 1 mg Documented By: LUIS DANIEL Hydromorphone HCl (Hydromorphone 1 Mg Inj) 1 mg IV NOW ONE Stop: 03/08/22 19:38 Last Admin: 03/08/22 19:46 Dose: 1 mg Documented By: LUIS DANIEL Sodium Chloride (Normal Saline 0.9%) 1,000 mls @ 1,000 mls/hr IV BOLUS ONE Stop: 03/08/22 17:49 Last Infusion: 03/08/22 18:23 Dose: 0 mls/hr Documented By: LUIS DANIEL Admin: 03/08/22 17:08 Dose: 1,000 mls/hr Documented By: LUIS DANIEL Sodium Chloride (Normal Saline 0.9%) 1,000 mls @ 1,000 mls/hr IV BOLUS ONE Stop: 03/08/22 22:16 Last Infusion: 03/08/22 22:48 Dose: 0 mls/hr Documented By: Admin: 03/08/22 21:33 Dose: 1,000 mls/hr Documented By: LIU Ondansetron HCl (Ondansetron 4 Mg/2 Ml Inj) 4 mg IV NOW ONE Stop: 03/08/22 16:51 Last Admin: 03/08/22 17:08 Dose: 4 mg Documented By: LUIS DANIEL Ondansetron HCl (Ondansetron 4 Mg/2 Ml Inj) 4 mg IV Q4HR ELEAZAR Phenobarbital (Phenobarbital 65 Mg/Ml Vial) 130 mg IV NOW ONE Stop: 03/08/22 16:51 Last Admin: 03/08/22 17:08 Dose: 130 mg Documented By: LUIS DANIEL Vital Signs Vital signs: Vital Signs - 8 hr 03/08/22 16:32 03/08/22 16:51 03/08/22 16:54 Temperature 97.4 F L Pulse Rate 104 H 98 H 99 H Respiratory Rate 20 23 21 Blood Pressure 195/106 H Pulse Oximetry 97 99 Oxygen Delivery Method Room Air 03/08/22 16:54 03/08/22 17:00 03/08/22 17:00 Temperature Pulse Rate 96 H Respiratory Rate 15 Blood Pressure 171/106 H 174/106 H Pulse Oximetry 98 Oxygen Delivery Method 03/08/22 17:30 03/08/22 17:30 03/08/22 18:00 Temperature Pulse Rate 88 85 Respiratory Rate 25 H 24 Blood Pressure 187/95 H Pulse Oximetry 96 97 Oxygen Delivery Method 03/08/22 18:01 03/08/22 18:01 03/08/22 18:30 Temperature Pulse Rate 86 Respiratory Rate 26 H Blood Pressure 179/95 H 180/88 H Pulse Oximetry 98 Oxygen Delivery Method 03/08/22 18:30 03/08/22 19:00 03/08/22 19:00 Temperature Pulse Rate 92 H 87 Respiratory Rate 19 17 Blood Pressure 194/95 H Pulse Oximetry 97 97 Oxygen Delivery Method 03/08/22 19:30 03/08/22 19:31 03/08/22 19:31 Temperature Pulse Rate 84 89 Respiratory Rate 22 19 Blood Pressure 176/108 H Pulse Oximetry 97 95 Oxygen Delivery Method Medical Decision Making Medical Records Medical records reviewed: Yes I reviewed the patient's medical records. Lab Data Lab results reviewed: Yes I reviewed the patient's lab results. Result diagrams: 03/08/22 16:51 03/08/22 16:51 Labs: Lab Results 03/08/22 03/08/22 03/08/22 Range/Units 16:51 16:51 16:51 WBC 13.6 H (4.5-11.0) X10^3/uL RBC 4.11 L (4.5-5.9) X10^6/uL Hgb 14.7 (13.5-17.5) g/dL Hct 41.8 (41-53) % MCV 101.7 H (80-100) fL MCH 35.7 H (26-34) PG MCHC 35.1 (30-36) % RDW 13.4 (11.6-14.8) % Plt Count 109 L (150-400) X10^3/uL Neut % (Auto) 79.5 H (50-75) % Lymph % (Auto) 11.6 L (25-40) % [place] % (Auto) 8.2 (3-14) % Eos % (Auto) 0.0 L (2-4) % Baso % (Auto) 0.7 (0-2) % Neut # (Auto) 68437 H (1726-4109) /uL Lymph # (Auto) 1600 (5921-0471) /uL [place] # (Auto) 1100 H (0-900) /uL Eos # (Auto) 0 (0-450) /uL Baso # (Auto) 100 (0-100) /uL Sodium 133 L (137-145) mmol/L Potassium 3.7 (3.4-5.1) mmol/L Chloride 98 (98-107) mmol/L Carbon Dioxide 25 (22-32) mmol/L BUN 5 L (9-20) mg/dL Creatinine 0.49 L (0.66-1.25) mg/dL Estimated GFR > 60 (>60) mL/min BUN/Creatinine Ratio 10.2 (6-22) Glucose 135 H (80-110) mg/dL Calcium 8.8 (8.4-10.2) mg/dL Total Bilirubin 1.8 H (0.2-1.3) mg/dL AST 97 H (17-59) IU/L ALT 43 (<50) IU/L Alkaline Phosphatase 175 H (38-126) U/L Total Protein 7.6 (6.3-8.2) g/dL Albumin 4.6 (3.5-5.0) g/dL Globulin 3.0 (1.7-4.1) g/dL Albumin/Globulin Ratio 1.5 (1.0-2.8) Lipase 739 H (23-300) U/L Urine Color Urine Appearance Urine pH (4.5-8.0) Ur Specific [place] (1.000-1.035) Urine Protein (Negative) Urine Glucose (UA) (Negative) g/dL Urine Ketones (NEGATIVE) Urine Occult Blood (Negative) Urine Nitrate (Negative) Urine Bilirubin (NEGATIVE) Urine Urobilinogen (0.2) E.U./dL Ur Leukocyte Esterase (NEGATIVE) Urine RBC (0-5/HPF) Urine WBC (0-5/HPF) Ur Squamous Epith Cells (0-5/HPF) Urine Bacteria (None) Ur Culture Indicated? Ethyl Alcohol < 10 ( - 10) mg/dL 03/08/22 Range/Units 18:20 WBC (4.5-11.0) X10^3/uL RBC (4.5-5.9) X10^6/uL Hgb (13.5-17.5) g/dL Hct (41-53) % MCV (80-100) fL MCH (26-34) PG MCHC (30-36) % RDW (11.6-14.8) % Plt Count (150-400) X10^3/uL Neut % (Auto) (50-75) % Lymph % (Auto) (25-40) % [place] % (Auto) (3-14) % Eos % (Auto) (2-4) % Baso % (Auto) (0-2) % Neut # (Auto) (4586-4994) /uL Lymph # (Auto) (7098-9375) /uL [place] # (Auto) (0-900) /uL Eos # (Auto) (0-450) /uL Baso # (Auto) (0-100) /uL Sodium (137-145) mmol/L Potassium (3.4-5.1) mmol/L Chloride (98-107) mmol/L Carbon Dioxide (22-32) mmol/L BUN (9-20) mg/dL Creatinine (0.66-1.25) mg/dL Estimated GFR (>60) mL/min BUN/Creatinine Ratio (6-22) Glucose (80-110) mg/dL Calcium (8.4-10.2) mg/dL Total Bilirubin (0.2-1.3) mg/dL AST (17-59) IU/L ALT (<50) IU/L Alkaline Phosphatase (38-126) U/L Total Protein (6.3-8.2) g/dL Albumin (3.5-5.0) g/dL Globulin (1.7-4.1) g/dL Albumin/Globulin Ratio (1.0-2.8) Lipase (23-300) U/L Urine Color Yellow Urine Appearance Clear Urine pH 6.0 (4.5-8.0) Ur Specific [place] 1.015 (1.000-1.035) Urine Protein Negative (Negative) Urine Glucose (UA) Negative (Negative) g/dL Urine Ketones 2+ H (NEGATIVE) Urine Occult Blood Negative (Negative) Urine Nitrate Negative (Negative) Urine Bilirubin Negative (NEGATIVE) Urine Urobilinogen 0.2 (0.2) E.U./dL Ur Leukocyte Esterase Negative (NEGATIVE) Urine RBC None seen (0-5/HPF) Urine WBC 0-1/hpf (0-5/HPF) Ur Squamous Epith Cells 0-1 /hpf (0-5/HPF) Urine Bacteria None seen (None) Ur Culture Indicated? Cult not indicated Ethyl Alcohol ( - 10) mg/dL Imaging Data US - abdomen: Radiologist's Impression: [address] [address] Ultrasound Report Signed Patient: Dom Holliday MR#: [id number] : 1960 Acct:[id number] Age/Sex: 62 / M Date of Service: 03/08/22 Loc: ICU 226-1 Accession Number: [id number] ?? Procedure: US abdomen limited Ordering Provider: Ubaldo Quispe D.O. PROCEDURE:? US ABDOMEN LIMITED ? INDICATIONS:? pancreatitis eval pancreas and gallbladder ? TECHNIQUE:? Real-time focused scanning was performed of the abdomen, with image documentation.? ? COMPARISON:? [facility], , ABDOMEN COMPLETE, 08/05/2017, 14:10. ? FINDINGS:? ? Liver:? Liver is normal in size and increased in echogenicity suggestive of fatty infiltration. ? Gallbladder:? No gallstones, gallbladder wall thickening, or pericholecystic fluid. ? Biliary ducts:? Intrahepatic bile ducts appear non-dilated.? There is extrahepatic biliary ductal dilatation, with the visualized common bile duct measuring up to 0.9 cm. ? Pancreas:? Visualized portions of the pancreas are sonographically normal.? The pancreatic tail is not well seen due to bowel gas.? ? Miscellaneous:? No free abdominal fluid.? ? IMPRESSION:? ? 1. Extrahepatic biliary ductal dilatation with the common bile duct measuring up to 0.9 cm.? No discrete obstructing stone visualized on the current study but biliary obstruction possibly secondary to choledocholithiasis cannot be excluded.? Recommend correlation with laboratory values and consider further evaluation with MRCP if clinically indicated. ? 2. No cholelithiasis or evidence of cholecystitis. ? Dictated by: Omega Altamirano M.D. on 03/08/2022 at 21:54 ? ? Approved by: Omega Altamirano M.D. on 03/08/2022 at 22:00?? MDM Narrative Medical decision making narrative: No fevers. No signs of withdrawal here in the ER. Does have an elevated lipase. He states this feels very similar to his prior to diagnosis of pancreatitis. He is afebrile. Does have a leukocytosis. Had some vomiting earlier today when he tried to drink some water. He states that the pain medicine that he received upon arrival is helped his symptoms. He has minimal abdominal tenderness but does have some left CVA tenderness. He has withdrawn from alcohol in the past. Given his presentation other comorbidities admission to the hospital is required for further evaluation and treatment. Discussed the case with hospitalist who will admit and asked for the ultrasound of the abdomen and will follow up with the results of this. Did discuss the need for admission with the patient. He expressed understanding and agreement. Discharge Plan Departure Patient Disposition: Admitted as Observation Clinical Impression: Alcohol abuse Pancreatitis Qualifiers: Chronicity: acute Pancreatitis type: alcohol induced Acute pancreatitis complication: unspecified Qualified Code(s): K85.20 - Alcohol induced acute pancreatitis without necrosis or infection Admit Date/Time: 03/08/22 19:42 Admit Provider: Lino Adams
[2022-03-08 18:28] LABS: Appearance Urine UA CLEAR; Bilirubin Urine UA NEGATIVE (NEGATIVE); Color Urine UA YELLOW; Glucose Urine UA NEGATIVE (Negative); Ketones Urine UA 2+ (NEGATIVE); Leukocyte Esterase Urine UA NEGATIVE (NEGATIVE); Nitrite Urine UA NEGATIVE (Negative); Occult Blood Urine UA NEGATIVE (Negative); Protein Urine UA NEGATIVE (Negative); Specific Gravity Urine UA 1.015 (1.000-1.035); Urobilinogen Urine UA 0.2 E.U./dL (0.2)
[2022-03-08 18:38] LABS: Bacteria Urine None Seen; RBC Urine None Seen (0-5/HPF); Squamous Epithelial Cell Urine 0-1 /HPF (0-5/HPF); WBC Urine 0-1/HPF (0-5/HPF)
[2022-03-08 18:39] LABS: Culture Indicated Urine Cult Not Indicated
--- NOTE | 2022-03-08 19:41 | DI.US.S_ITS ---
PROCEDURE: US ABDOMEN LIMITED INDICATIONS: pancreatitis eval pancreas and gallbladder TECHNIQUE: Real-time focused scanning was performed of the abdomen, with image documentation. COMPARISON: [facility], [place], ABDOMEN COMPLETE, 08/05/2017, 14:10. FINDINGS: Liver: Liver is normal in size and increased in echogenicity suggestive of fatty infiltration. Gallbladder: No gallstones, gallbladder wall thickening, or pericholecystic fluid. Biliary ducts: Intrahepatic bile ducts appear non-dilated. There is extrahepatic biliary ductal dilatation, with the visualized common bile duct measuring up to 0.9 cm. Pancreas: Visualized portions of the pancreas are sonographically normal. The pancreatic tail is not well seen due to bowel gas. Miscellaneous: No free abdominal fluid. IMPRESSION: 1. Extrahepatic biliary ductal dilatation with the common bile duct measuring up to 0.9 cm. No discrete obstructing stone visualized on the current study but biliary obstruction possibly secondary to choledocholithiasis cannot be excluded. Recommend correlation with laboratory values and consider further evaluation with MRCP if clinically indicated. 2. No cholelithiasis or evidence of cholecystitis. Dictated by: Omega Altamirano M.D. on 03/08/2022 at 21:54 Approved by: Omega Altamirano M.D. on 03/08/2022 at 22:00
[2022-03-08] MEDS: SODIUM CHLORIDE 0.9% 1,000 ML 150 ML IV (19:46)
--- NOTE | 2022-03-08 20:07 | PC.NURSE ---
Patient with hx of alcohol withdrawal seizures, reports last drink was last night and is an all day drinker but has been unable to drink d/t nausea and pain. Medicated per MAR for alcohol withdrawal.
[2022-03-08 20:19] LABS: COVID19 -Nasal RAPID Negative (Negative)
--- NOTE | 2022-03-08 21:17 | PM.HP.1 ---
History of Present Illness History of Present Illness Date Patient Seen: 03/08/22 Date of Onset of Symptoms: 03/07/22 Chief complaint: Pancreatic pain Narrative: 62-year-old very pleasant gentleman with significant alcohol, smoking history with a 3 episodes of pancreatitis in the past is been having recurrent episodes of nausea vomiting, severe epigastric pain radiating to the back complained of 8/10 in the ER and 6/10 when I saw him on the medical floor. Patient able to confirm most of the details by himself, does seem to be in distress when I was interviewing. He does have significant ongoing issues with alcohol use, admits that he has unable to stop, confirms the dependency. He had episodes of pancreatitis 3 times in the past, thinks this is 4th time. His mom brought him to the ER because of ongoing nausea, unable to eat anything from past 2 days, worsening abdominal pain. Patient got some pain medications in the ER, does seem to be helping a little bit, did not completely improve the pain. Patient denies any bloody vomitus, change in the color of the stool. Denies any headaches, change in vision, altered mental status, episodes of seizures, loss of bowel or bladder, unsteady gait, palpitations. Patient History Medical History Alcohol abuse Alcoholic pancreatitis Amputation finger Back pain Chronic pancreatitis Fracture of finger, distal phalanx, open Fracture of finger, middle phalanx, open Onychomycosis Seizures Surgical History History of surgical amputation of finger Family & Social History Family History Mother Osteoarthritis Father Alcohol abuse Medical history unknown Social History: household members none Safety & Behavioral: Feels Safe in Current Yes Environment Been Physically Hurt or No Threatened By a Person Tobacco & Substance use: Tobacco type cigarettes Smoking Status Current every day smoker Smoking packs per day 1 alcohol intake current alcohol intake frequency 3 or more drinks per day Substance Use Type marijuana Meds Home Medications and Allergies Home Medications Medication Instructions Recorded Confirmed Type nicotine 21 mg/24 hr daily 21 mg topical BEDTIME #21 ea 09/03/19 03/08/22 Rx transdermal patch Allergies Allergy/AdvReac Type Severity Reaction Status Date / Time lactase [From DAIRY AID] Allergy Unknown STOMACH Verified 03/08/22 16:38 UPSET Review of Systems Review of Systems Narrative: Constitutional, eyes, ENT, cardiovascular, respiratory, GI, musculoskeletal, Neurology, Psychiatry, hematologic review of systems performed, negative other than as mentioned above in HPI. Patient denies any suicidal ideation. His mood seems to be pleasant. Uncomfortable because of the pain. Exam Vital Signs (past 8 hours): - 03/08/22 16:32 03/08/22 16:51 03/08/22 16:54 Temperature 97.4 F L Pulse Rate 104 H 98 H 99 H Respiratory Rate 20 23 21 Blood Pressure 195/106 H Pulse Oximetry 97 99 Oxygen Delivery Method Room Air 03/08/22 16:54 03/08/22 17:00 03/08/22 17:00 Temperature Pulse Rate 96 H Respiratory Rate 15 Blood Pressure 171/106 H 174/106 H Pulse Oximetry 98 Oxygen Delivery Method 03/08/22 17:30 03/08/22 17:30 03/08/22 18:00 Temperature Pulse Rate 88 85 Respiratory Rate 25 H 24 Blood Pressure 187/95 H Pulse Oximetry 96 97 Oxygen Delivery Method 03/08/22 18:01 03/08/22 18:01 03/08/22 18:30 Temperature Pulse Rate 86 Respiratory Rate 26 H Blood Pressure 179/95 H 180/88 H Pulse Oximetry 98 Oxygen Delivery Method 03/08/22 18:30 03/08/22 19:00 03/08/22 19:00 Temperature Pulse Rate 92 H 87 Respiratory Rate 19 17 Blood Pressure 194/95 H Pulse Oximetry 97 97 Oxygen Delivery Method 03/08/22 19:30 03/08/22 19:31 03/08/22 19:31 Temperature Pulse Rate 84 89 Respiratory Rate 22 19 Blood Pressure 176/108 H Pulse Oximetry 97 95 Oxygen Delivery Method 03/08/22 20:00 03/08/22 20:00 03/08/22 20:59 Temperature Pulse Rate 95 H Respiratory Rate 24 Blood Pressure 177/96 H Pulse Oximetry 93 Oxygen Delivery Method Room Air 03/08/22 21:00 Temperature Pulse Rate Respiratory Rate Blood Pressure Pulse Oximetry 95 Oxygen Delivery Method Room Air Oxygen Delivery Method Room Air Narrative Exam Narrative: Patient does look uncomfortable because of the pain, pointing his hand towards his belly. Able to make reasonable conversation, looks anxious, having some tremors on examination. His CIWA score positive at 3. Constitutional, eyes, ENT, respiratory, cardiovascular, GI, skin, neuro, psychiatric and extremity examination performed. No apparent organomegaly. Epigastric tenderness positive. Possibly some right upper quadrant pain. No rebound tenderness. Organ system examination performed, negative other than as mentioned above. Objective Labs Result Diagrams: 03/08/22 16:51 03/08/22 16:51 Labs: Laboratory Results - last 24 hr 03/08/22 03/08/22 03/08/22 16:51 16:51 16:51 WBC 13.6 H RBC 4.11 L Hgb 14.7 Hct 41.8 MCV 101.7 H MCH 35.7 H MCHC 35.1 RDW 13.4 Plt Count 109 L Neut % (Auto) 79.5 H Lymph % (Auto) 11.6 L [place] % (Auto) 8.2 Eos % (Auto) 0.0 L Baso % (Auto) 0.7 Neut # (Auto) 78168 H Lymph # (Auto) 1600 [place] # (Auto) 1100 H Eos # (Auto) 0 Baso # (Auto) 100 Sodium 133 L Potassium 3.7 Chloride 98 Carbon Dioxide 25 BUN 5 L Creatinine 0.49 L Estimated GFR > 60 BUN/Creatinine Ratio 10.2 Glucose 135 H Calcium 8.8 Total Bilirubin 1.8 H AST 97 H ALT 43 Alkaline Phosphatase 175 H Total Protein 7.6 Albumin 4.6 Globulin 3.0 Albumin/Globulin Ratio 1.5 Lipase 739 H Urine Color Urine Appearance Urine pH Ur Specific [place] Urine Protein Urine Glucose (UA) Urine Ketones Urine Occult Blood Urine Nitrate Urine Bilirubin Urine Urobilinogen Ur Leukocyte Esterase Urine RBC Urine WBC Ur Squamous Epith Cells Urine Bacteria Ur Culture Indicated? Ethyl Alcohol < 10 SARS-CoV-2 (PCR) 03/08/22 03/08/22 18:20 19:43 WBC RBC Hgb Hct MCV MCH MCHC RDW Plt Count Neut % (Auto) Lymph % (Auto) [place] % (Auto) Eos % (Auto) Baso % (Auto) Neut # (Auto) Lymph # (Auto) [place] # (Auto) Eos # (Auto) Baso # (Auto) Sodium Potassium Chloride Carbon Dioxide BUN Creatinine Estimated GFR BUN/Creatinine Ratio Glucose Calcium Total Bilirubin AST ALT Alkaline Phosphatase Total Protein Albumin Globulin Albumin/Globulin Ratio Lipase Urine Color Yellow Urine Appearance Clear Urine pH 6.0 Ur Specific [place] 1.015 Urine Protein Negative Urine Glucose (UA) Negative Urine Ketones 2+ H Urine Occult Blood Negative Urine Nitrate Negative Urine Bilirubin Negative Urine Urobilinogen 0.2 Ur Leukocyte Esterase Negative Urine RBC None seen Urine WBC 0-1/hpf Ur Squamous Epith Cells 0-1 /hpf Urine Bacteria None seen Ur Culture Indicated? Cult not indicated Ethyl Alcohol SARS-CoV-2 (PCR) Negative Assessment & Plan Assessment and plan (1) Pancreatitis: Qualifiers: Acute pancreatitis complication: unspecified Chronicity: acute Pancreatitis type: alcohol induced Qualified Code(s): K85.20 - Alcohol induced acute pancreatitis without necrosis or infection Status: Acute (2) Alcohol abuse: Status: Acute (3) Chronic pancreatitis: Status: Acute (4) Nausea and vomiting: Status: Acute (5) Epigastric pain: Status: Acute (6) Dehydration: Status: Acute Plan Admit patient as an inpatient status, with an expected length of stay greater than 2 days IV fluids 2 L, continue IV fluids at rate of 125 cc/hour NPO, appropriate pain control, IV antiemetics CIWA protocol, Ativan, as per the protocol. If pain appropriately control, is clinically improved, start clear liquids in the morning SCDs for DVT prophylaxis, IV Protonix for GI prophylaxis Patient is full code, overall prognosis is guarded, care plan explained, answered all questions Extensive counseling regarding smoking, alcohol use, given, patient is not motivated at this time Mother is primary personal investment adviser, power of annealer helper, requested call as needed with updates Time Spent With Patient Critical Care time: I spent a total of [] minutes of critical care time on this patient's care today; this time is exclusive of procedural time. Quality VTE Deep Vein Thrombosis/Pulmonary Embolism Present on Admission: No
[2022-03-08] MEDS: LORazepam 1 MG TABLET 2 MG PO (22:09)
[2022-03-08] MEDS: SODIUM CHLORIDE 0.9% 1,000 ML 125 ML IV (22:39)
[2022-03-09] VITALS (23 sets, daily range): BP systolic 135–169; BP diastolic 70–98; PULSE 70–137; RESP 15–48; TEMP 35.9–37; O2SAT 93–99
[2022-03-09] MEDS: HYDROMORPHONE 1 MG INJ IV ×5 (04:35→20:55)
[2022-03-09] MEDS: PANTOPRAZOLE 40 MG VIAL IV ×2 (04:35→08:29)
[2022-03-09] MEDS: LORazepam 1 MG TABLET 2 MG PO (05:56)
[2022-03-09 06:09] LABS: Add Manual Diff / Slide Review NO; Basophils Absolute Auto 100 /uL (0-100); Basophils Percent Auto 0.8 % (0-2); Eosinophils Absolute Auto 0 /uL (0-450); Eosinophils Percent Auto 0.3 % (2-4); Hematocrit 39.2 % (41-53); Hemoglobin 13.6 g/dL (13.5-17.5); Lymphocytes Absolute Auto 1300 /uL (1100-4500); Mean Corpuscular HGB Conc 34.6 % (30-36); Mean Corpuscular Hemoglobin 35.6 PG (26-34); Mean Corpuscular Volume 102.9 fL (80-100); Monocytes Absolute Auto 1200 /uL (0-900); Neutrophils Absolute Auto 10300 /uL (1500-7000); Neutrophils Percent Auto 79.9 % (50-75); Platelet Count 91 X10^3/uL (150-400); Red Blood Cell Count 3.81 X10^6/uL (4.5-5.9); Red Cell Distribution Width 13.3 % (11.6-14.8); White Blood Cell Count 12.9 X10^3/uL (4.5-11.0)
[2022-03-09] MEDS: SODIUM CHLORIDE 0.9% 1,000 ML 125 ML IV ×2 (06:10→14:09)
[2022-03-09 06:21] LABS: INR 0.9 (0.9-1.3); Prothrombin Time 10.1 SECONDS (10.1-12.7)
[2022-03-09 06:30] LABS: Alanine Aminotransferase 32 IU/L (<50); Albumin 3.9 g/dL (3.5-5.0); Albumin Globulin Ratio 1.3 (1.0-2.8); Alkaline Phosphatase 151 U/L (38-126); Aspartate Aminotransferase 60 IU/L (17-59); BUN Creatinine Ratio 5.4 (6-22); Bilirubin Total 1.3 mg/dL (0.2-1.3); Blood Urea Nitrogen 3 mg/dL (9-20); Carbon Dioxide 29 mmol/L (22-32); Chloride 98 mmol/L (98-107); Estimated Glomerular Filt Rate > 60 mL/min (>60); Globulin 2.9 g/dL (1.7-4.1); Glucose 106 mg/dL (80-110); HEMOLYSIS < 15 (0-50); Magnesium 1.4 mg/dL (1.6-2.3); Potassium 3.5 mmol/L (3.4-5.1); Sodium 133 mmol/L (137-145); Total Protein 6.8 g/dL (6.3-8.2)
[2022-03-09] MEDS: MAGNESIUM SULFATE 2 GM/50 ML PIGGYBACK IV (07:26)
[2022-03-09] MEDS: POTASSIUM CHLORIDE 20 MEQ TAB 40 MEQ PO (07:26)
[2022-03-09] MEDS: MULTIVITAMIN 1 TABLET 1 TAB PO (08:29)
[2022-03-09] MEDS: FOLIC ACID 1 MG TABLET PO (08:29)
[2022-03-09] MEDS: THIAMINE 100 MG TABLET PO (08:29)
[2022-03-09] MEDS: NICOTINE 21 MG PATCH TOP (08:29)
[2022-03-09] MEDS: LORazepam 2 MG/ML INJ IV ×9 (11:52→19:56)
[2022-03-09] MEDS: OXYCODONE IR 5 MG TABLET PO (12:01)
[2022-03-09 13:32] LABS: Alanine Aminotransferase 30 IU/L (<50); Albumin 4.1 g/dL (3.5-5.0); Albumin Globulin Ratio 1.5 (1.0-2.8); Alkaline Phosphatase 168 U/L (38-126); Aspartate Aminotransferase 52 IU/L (17-59); Bilirubin Total 1.3 mg/dL (0.2-1.3); Blood Urea Nitrogen 3 mg/dL (9-20); Calcium 7.9 mg/dL (8.4-10.2); Carbon Dioxide 24 mmol/L (22-32); Chloride 96 mmol/L (98-107); Estimated Glomerular Filt Rate > 60 mL/min (>60); Globulin 2.8 g/dL (1.7-4.1); Glucose 94 mg/dL (80-110); HEMOLYSIS < 15 (0-50); Magnesium 1.8 mg/dL (1.6-2.3); Potassium 3.3 mmol/L (3.4-5.1); Sodium 131 mmol/L (137-145); Total Protein 6.9 g/dL (6.3-8.2)
--- NOTE | 2022-03-09 14:46 | PC.NURSE ---
Addendum entered by Ly Carroll R.N. 03/09/22 15:18: new orders for phenobarbitol 130mg administered Original Note: Pt starting to escalate behaviors CIWA 14-18, attempting to get out of bed, remove IV. Giving Ativan Q15 minutes to achieve CIWA of 5
[2022-03-09] MEDS: POTASSIUM CHLORIDE IN WATER 10 MEQ/100 ML PIGGYBACK 100 MEQ IV (14:54)
[2022-03-09] MEDS: PHENobarbital 130 MG/ML VIAL IV (15:14)
--- NOTE | 2022-03-09 15:27 | P.PN_ITS ---
Subjective Subjective Date Patient Seen: 03/09/22 Interval history: 62-year-old male with a history of significant alcohol use admitted to the hospital with acute pancreatitis. The patient has developed significant alcohol withdrawal, this is manifested as delirium, hallucinations, tachycardia, diaphoresis, and hypertension. He has received several doses of Ativan with an adequate improvement. Patient now will be loaded on phenobarbital in addition to Ativan for his alcohol withdrawal. He does complain of abdominal pain. Exam Vital Signs (past 8 hours): - 03/09/22 11:00 03/09/22 12:12 03/09/22 14:36 Temperature 98.2 F Pulse Rate 97 H 101 H 113 H Respiratory Rate 24 23 23 Blood Pressure 154/70 H 154/70 H 153/90 H Pulse Oximetry 98 Oxygen Flow Rate 0 03/09/22 15:00 03/09/22 15:00 Temperature Pulse Rate 106 H 107 H Respiratory Rate 35 H 20 Blood Pressure 148/95 H Pulse Oximetry 96 Oxygen Flow Rate Oxygen Delivery Method Room Air Oxygen Flow Rate 0 Narrative Exam Narrative: Ill-appearing male lying in bed Resp Other: Lungs clear to auscultation Cardio Other: Cardiac exam: Tachycardic, regular rate and rhythm, normal S1-S2 GI Other: Abdomen: Soft, mildly tender, nondistended, no palpable masses, no board-like rigidity Extrem Other: No edema Psych Other: Patient is calm, somewhat confused, reports hallucinations, baseline tremor Objective Labs Result Diagrams: 03/09/22 06:01 03/09/22 13:10 Labs: Laboratory Results - last 24 hr 03/08/22 03/08/22 03/08/22 16:51 16:51 16:51 WBC 13.6 H RBC 4.11 L Hgb 14.7 Hct 41.8 MCV 101.7 H MCH 35.7 H MCHC 35.1 RDW 13.4 Plt Count 109 L Neut % (Auto) 79.5 H Lymph % (Auto) 11.6 L [place] % (Auto) 8.2 Eos % (Auto) 0.0 L Baso % (Auto) 0.7 Neut # (Auto) 11014 H Lymph # (Auto) 1600 [place] # (Auto) 1100 H Eos # (Auto) 0 Baso # (Auto) 100 PT INR Sodium 133 L Potassium 3.7 Chloride 98 Carbon Dioxide 25 BUN 5 L Creatinine 0.49 L Estimated GFR > 60 BUN/Creatinine Ratio 10.2 Glucose 135 H Calcium 8.8 Magnesium Total Bilirubin 1.8 H AST 97 H ALT 43 Alkaline Phosphatase 175 H Total Protein 7.6 Albumin 4.6 Globulin 3.0 Albumin/Globulin Ratio 1.5 Lipase 739 H Urine Color Urine Appearance Urine pH Ur Specific [place] Urine Protein Urine Glucose (UA) Urine Ketones Urine Occult Blood Urine Nitrate Urine Bilirubin Urine Urobilinogen Ur Leukocyte Esterase Urine RBC Urine WBC Ur Squamous Epith Cells Urine Bacteria Ur Culture Indicated? Nasal Screen MRSA (PCR) Ethyl Alcohol < 10 SARS-CoV-2 (PCR) 03/08/22 03/08/22 03/08/22 18:20 19:43 20:00 WBC RBC Hgb Hct MCV MCH MCHC RDW Plt Count Neut % (Auto) Lymph % (Auto) [place] % (Auto) Eos % (Auto) Baso % (Auto) Neut # (Auto) Lymph # (Auto) [place] # (Auto) Eos # (Auto) Baso # (Auto) PT INR Sodium Potassium Chloride Carbon Dioxide BUN Creatinine Estimated GFR BUN/Creatinine Ratio Glucose Calcium Magnesium Total Bilirubin AST ALT Alkaline Phosphatase Total Protein Albumin Globulin Albumin/Globulin Ratio Lipase Urine Color Yellow Urine Appearance Clear Urine pH 6.0 Ur Specific [place] 1.015 Urine Protein Negative Urine Glucose (UA) Negative Urine Ketones 2+ H Urine Occult Blood Negative Urine Nitrate Negative Urine Bilirubin Negative Urine Urobilinogen 0.2 Ur Leukocyte Esterase Negative Urine RBC None seen Urine WBC 0-1/hpf Ur Squamous Epith Cells 0-1 /hpf Urine Bacteria None seen Ur Culture Indicated? Cult not indicated Nasal Screen MRSA (PCR) Negative for mrsa Ethyl Alcohol SARS-CoV-2 (PCR) Negative 03/09/22 03/09/22 03/09/22 06:01 06:01 06:01 WBC 12.9 H RBC 3.81 L Hgb 13.6 Hct 39.2 L MCV 102.9 H MCH 35.6 H MCHC 34.6 RDW 13.3 Plt Count 91 L Neut % (Auto) 79.9 H Lymph % (Auto) 10.0 L [place] % (Auto) 9.0 Eos % (Auto) 0.3 L Baso % (Auto) 0.8 Neut # (Auto) 08707 H Lymph # (Auto) 1300 [place] # (Auto) 1200 H Eos # (Auto) 0 Baso # (Auto) 100 PT 10.1 INR 0.9 Sodium 133 L Potassium 3.5 Chloride 98 Carbon Dioxide 29 BUN 3 L Creatinine 0.56 L Estimated GFR > 60 BUN/Creatinine Ratio 5.4 L Glucose 106 Calcium 8.0 L Magnesium 1.4 L Total Bilirubin 1.3 AST 60 H ALT 32 Alkaline Phosphatase 151 H Total Protein 6.8 Albumin 3.9 Globulin 2.9 Albumin/Globulin Ratio 1.3 Lipase Urine Color Urine Appearance Urine pH Ur Specific [place] Urine Protein Urine Glucose (UA) Urine Ketones Urine Occult Blood Urine Nitrate Urine Bilirubin Urine Urobilinogen Ur Leukocyte Esterase Urine RBC Urine WBC Ur Squamous Epith Cells Urine Bacteria Ur Culture Indicated? Nasal Screen MRSA (PCR) Ethyl Alcohol SARS-CoV-2 (PCR) 03/09/22 13:10 WBC RBC Hgb Hct MCV MCH MCHC RDW Plt Count Neut % (Auto) Lymph % (Auto) [place] % (Auto) Eos % (Auto) Baso % (Auto) Neut # (Auto) Lymph # (Auto) [place] # (Auto) Eos # (Auto) Baso # (Auto) PT INR Sodium 131 L Potassium 3.3 L Chloride 96 L Carbon Dioxide 24 BUN 3 L Creatinine 0.50 L Estimated GFR > 60 BUN/Creatinine Ratio 6.0 Glucose 94 Calcium 7.9 L Magnesium 1.8 Total Bilirubin 1.3 AST 52 ALT 30 Alkaline Phosphatase 168 H Total Protein 6.9 Albumin 4.1 Globulin 2.8 Albumin/Globulin Ratio 1.5 Lipase Urine Color Urine Appearance Urine pH Ur Specific [place] Urine Protein Urine Glucose (UA) Urine Ketones Urine Occult Blood Urine Nitrate Urine Bilirubin Urine Urobilinogen Ur Leukocyte Esterase Urine RBC Urine WBC Ur Squamous Epith Cells Urine Bacteria Ur Culture Indicated? Nasal Screen MRSA (PCR) Ethyl Alcohol SARS-CoV-2 (PCR) [facility] Medical History Alcohol abuse Alcoholic pancreatitis Amputation finger Back pain Chronic pancreatitis Fracture of finger, distal phalanx, open Fracture of finger, middle phalanx, open Onychomycosis Seizures Surgical History History of surgical amputation of finger Family History Mother Osteoarthritis Father Alcohol abuse Medical history unknown Social History household members: none Smoking Status: Current every day smoker alcohol intake: current substance use type: marijuana Assessment & Plan Assessment & Plan narrative: 1. Acute alcohol withdrawal * Patient now with delirium tremens * Will discontinue scheduled Ativan * Will initiate symptom triggered treatment with Ativan as needed * Will load with phenobarbital, re-dose as needed given his worsening alcohol withdrawal * Will start the patient on multivitamin and folate 2. Acute pancreatitis * Secondary to alcohol use * Continue IV hydration, keep NPO, continue IV pain medications, and anti nausea medication 3. Nicotine dependence * Will continue nicotine patch 4. DVT prophylaxis * The patient is somewhat thrombocytopenic, will continue SCDs, will defer Lovenox at this time Time Spent With Patient Critical Care time: I spent a total of [] minutes of critical care time on this patient's care today; this time is exclusive of procedural time. Quality VTE Deep Vein Thrombosis/Pulmonary Embolism Present on Admission: No
[2022-03-09] MEDS: DEXTROSE 5%-0.45NS W/KCL 20MEQ 1,000 ML 150 MEQ IV ×2 (16:02→22:37)
--- NOTE | 2022-03-09 16:33 | CM.DANOTE ---
Initial DCP Assessment and LOG LOADER HELPER Note Patient is a 62 yo male, resident of [place], admitted for alcoholic pancreatitis, hx significant ETOH use PCP: Dom Keller Payer: [email or web address] Met w/patient and mom Carmen at bedside, introduced role. Patient requests mom remain in the room for conversation. Patient just received IV ativan, drowsy and states feeling nauseous. According to our conversation together: Patient drinks approx a 12 pack of beer and a fifth of vodka daily. 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 Patient has been drinking for 30 years, has seen counselors through his LIZ treatment stays, no outpatient MH providers. Patient has been to inpatient [facility] treatment in [facility] and [place] (numerous times) , patient's last period of sobriety longer than 3 days was in 2019 during his last inpatient treatment stay Patient feels his drinking is a problem but admits he cannot find the motivation to quit Patient denies needs fro ETOH resources at this time; does request an LOG LOADER HELPER to return to bedside when he feels better to check again. Mom Carmen tearful throughout visit; states alcoholism runs in the family, patient has two adult children that live in [place] that also drink heavily. Plan: DC back home w/support from family as needed, review ETOH resources upon DC if patient requests STEFFEN [place] Discharge Planning/Care Management CM Discharge Assessment Start: 03/09/22 16:20 Freq: Status: Active Protocol: Document 03/09/22 16:20 EMILIANO (Rec: 03/09/22 16:33 EMILIANO [id number]) Discharge Planning Assessment Assigned [employer] STEFFEN Rea DPOA/Assigned Designee Name Carmen Cohn mother Contact Information [phone] Advance Directives? Yes Advance Directives on File Yes History Provided By Patient,Family Member,Medical Record Prior Living Arrangements House Household Members none Type of transporation used prior to Drives own vehicle admit Comment Counseled patient NEVER to drive while drinking, no suspended license per mom Independent with ADL's Yes Is patient alert and oriented? Yes Barriers to Discharge No Discharge Plan Home Transportation Arrangement Family Referrals Initiated None needed
[2022-03-09] MEDS: HALOPERIDOL 5 MG/ML VIAL (19:57)
--- NOTE | 2022-03-09 20:33 | PM.EVENT ---
Event Note Event Note (Rapid Response, Code, or fall): I was called to evaluate the patient urgently at bedside for severe agitation. Patient is delirious, not oriented, not able to make any conversation, fighting the nurses to get out of the bed, trying to pull the lines. By the time I reached the patient to rule, he was given IV Ativan. Patient received total 6 mg of IV Ativan in past 1 hour, after 20 minutes of combative behavior patient now seem to be comfortable, drowsy, arousable with pain stimuli. He continues to have tachycardia, respiratory rate in 40s, did not show any signs of hypoxia at this time. I started him on low-dose Ativan drip, and requested nurse to use her RASS score to keep patient drowsy. Pizarro catheter need to be placed. After stabilizing the patient, I called Mom to update. I explained the severity of the situation, potential further deterioration where patient may require intubation if he continues to deteriorate. Patient mom understands the situation, agrees with the care plan. We will call her again if patient continues to deteriorate, requires further sedation, intubation. Patient is upgraded to critical care status. We will consider tele ICU consultation if patient continues to deteriorate. We will continue the patient assessments every 15 minutes, and continuous monitoring. Overall prognosis is poor. Care plan also discussed with the nurse at bedside, answered all questions, will continue to check on this patient on a regular basis. Answered all questions asked by patient's mom also.
[2022-03-09] MEDS: LORazepam 20 MG in SODIUM CHLORIDE 0.9% 90 ML 3.475 MG IV (20:47)
--- NOTE | 2022-03-09 21:00 | PC.NURSE ---
Addendum entered by Talya Martínez R.N. 03/10/22 06:42: Vent settiings reduced to FiO2 to .40, TV 500. RR 12, Peep +5. O2 sats 98%. OGT placed with green secretions obtained, OGT to gravity per MD orders. Patient sedate on Fentanyl drip 0.7mcg/kg/hr and Propofol 5mcg/kg/min. Precedex off after patient intubated. BP improved after 1L NS Bolus. HR 83, BP 131/75. Addendum entered by Talya Martínez R.N. 03/10/22 04:40: in for patient intubation. Intubated with 7.5 cm ETT and 23 at the lip. Vent settings FiO2 .60, 500 TV, RR 12, Peep +5. O2 sats 100%. Report given to Dr. Rodas regarding hypotension BP 88/50 (63) and CXR results with possible bibasilar infiltrates or pneumonitis. Orders received for IVF bolus and antibiotics. Addendum entered by Talya Martínez R.N. 03/10/22 03:36: Stat ABG pH 7.49, PCO2, O2 60, HCO3 24.8. Stat CXR completed. Dr Rodas and Dr. Trujillo updated on the ABG results. Orders received to call in anesthesia to intubate patient. Dr. Rojas, anesthesiologist called to request he come in for patient intubation. Addendum entered by Talya Martínez R.N. 03/10/22 02:45: Dr. Tineo notified of patient's continued tachypnea with adequate sedation. Discussed RR 40-50s on .30 FiO2 Heated High Flow and O2 sats 98%. Lungs clear. Orders received from Dr. Tineo to confer with tele-bead stringer. Dr. Trujillo notified of patient's continued tachypnea to mid 50s on .30 FiO2 Heated High Flow and the sats at 98%. Orders received for ABG and CXR. Addendum entered by Talya Martínez R.N. 03/10/22 02:31: Patient remains sedate. Precedex drip decreased to 0.7mcg/kg/hr. HR 74, SR. BP 108/62 RR 40-50s. Heated High Flow at .30 FiO2 sats 98%. Lungs clear. [place] draining clear, briseyda urine. Addendum entered by Talya Martínez R.N. 03/10/22 00:48: 2245 Dr Paul at bedside with patient's agitation and respiratory rate increasing to 40-50s. ABG ordered and completed. Dr. Paul consultation with tele-bead stringer and new orders received for a Precedex drip. Precedex drip initiated and Lorazepam drip discontinued after 30 minutes of Precdex drip infusion. RT initiating High flow oxygen at .30 FIO2. Precedex drip started at 1 mcg/kg/hr and reduced to 0.8mcg/kg/hr at 0100. Addendum entered by Talya Martínez R.N. 03/09/22 22:44: Patient sedate with initiation of Lorazepam drip and Hydromorphone IV. Second IV line and [place] catheter inserted while patient sedate. Patient awakening with repositioning of patient and increasing exhibition of agitation. Dr. Paul notified of increased agitation with Lorazepam drip at 0.01mg/kg/hr. Orders to titrate drip received and Lorazepam drip increased to 0.05mg/kg/hr. Original Note: 1909 Patient awake and thrashing, confused and disoriented with severe tremulousness. Patient attempting to get OOB. Lorazepam 2 mg IVP given. CIWA 21. Patient remaining agitated with another 2 mg Lorazepam given fifteen minutes after the first dose. Patient escalating in agitation and attempting to hit and kick staff. Patient on hands and knees in the bed. Third dose of Lorazepam 2m given. Dr. Coronado paged to patients room and security called as patient attempting to get OOB and hitting staff. Dr. Paul ordered a stat dose of Haldol 5 mg IV. Same given. HR 130-140s, ST. BP 169/90 RR 36.
[2022-03-09 23:24] LABS: Fractionated Inspired Oxygen 21; HCO3 ABG 25 mmol/L (22-26); Oxygen Saturation ABG 93 % (95-100); PO2 ABG 60 mmHg (80-100); TCO2 ABG 26 mmol/L (21-31)
[2022-03-10] VITALS (100 sets, daily range): BP systolic 82–134; BP diastolic 49–81; PULSE 62–110; RESP 0–70; TEMP 36.6–37.3; O2SAT 93–100
[2022-03-10] MEDS: dexmedeTOMIDine in 0.9 % NaCL 400 MCG/100 ML PLAST..BAG 17.375 MCG IV (00:03)
[2022-03-10] MEDS: HYDROMORPHONE 1 MG INJ IV (00:13)
--- NOTE | 2022-03-10 03:02 | DI.RAD.S_ITS ---
PROCEDURE: XR CHEST 1V INDICATIONS: tachypnea TECHNIQUE: One view of the chest was acquired. COMPARISON: [facility], CR, XR CHEST 1V, 03/10/2022, 4:08. [facility], CR, XR CHEST 1V, 03/10/2022, 7:27. FINDINGS: Surgical changes and devices: None. Lungs and pleura: On this semiupright portable chest examination, no large pneumothorax or large pleural effusions are seen. Minimal opacity can be seen at the left lung base. Mediastinum: The cardiac contours are within normal limits. The aorta demonstrates calcification and tortuosity. Bones and chest wall: No suspicious bony lesions. Overlying soft tissues appear unremarkable. Age-appropriate bony degenerative changes are seen. IMPRESSION: Minimal opacity can be seen at the left lung base. Note: No significant discrepancy from the preliminary report. Dictated by: Bishnu Regalado M.D. on 03/10/2022 at 7:16 Approved by: Bishnu Regalado M.D. on 03/10/2022 at 7:18
--- NOTE | 2022-03-10 03:07 | P.TELICUCN_ITS ---
History of Present Illness Consult details Chief complaint: Pancreatic pain Provider location (State): [place] Narrative: 62 y.o. male admitted 03/08 w/ EtOH pancreatitis and EtOH withdrawal. His EtOH withdrawal has been worsening despite CIWA, lorazepam and phenobarbital. Tonight, his agitation became severe enough that he was started on a lorazepam infusion. I was contacted by the hospitalist just prior to transfer; I recommended changing the lorazepam infusion to a Precedex infusion. PMHx is significant for tobacco and EtOH abuse. [facility] Medical History Alcohol abuse Alcoholic pancreatitis Amputation finger Back pain Chronic pancreatitis Fracture of finger, distal phalanx, open Fracture of finger, middle phalanx, open Onychomycosis Seizures Surgical History History of surgical amputation of finger Family History Mother Osteoarthritis Father Alcohol abuse Medical history unknown Social History household members: none Smoking Status: Current every day smoker alcohol intake: current substance use type: marijuana Current Medications Current Medications Medications: Home Medications nicotine 21 mg/24 hr daily transdermal patch 21 mg topical BEDTIME #21 ea 09/03/19 [Rx Confirmed 03/08/22] Visit Medications (administered) Generic Name Dose Route Start Last Admin Trade Name Freq PRN Reason Stop Dose Admin Folic Acid 1 mg 03/09/22 09:00 03/09/22 08:29 Folic Acid 1 Mg Tablet PO 1 mg DAILY ELEAZAR Administration Hydromorphone HCl 1 mg 03/08/22 21:25 03/10/22 00:13 Hydromorphone 1 Mg Inj IV 1 mg Q3H PRN Administration Pain, Moderate (4-6) Potassium Chloride/Dextrose/Sod Cl 1,000 mls @ 150 mls/hr 03/09/22 15:45 03/09/22 22:37 Dextrose 5%-0.45%Ns W/Kcl 20meq IV 150 mls/hr CONT ELEAZRA Administration Lorazepam 20 mg/ Sodium 100 mls @ 3.475 mls/hr 03/09/22 20:00 03/10/22 00:32 Chloride IV 0 mg/kg/hr TITRATE ELEAZAR 0 mls/hr Titration Protocol 0.01 MG/KG/HR dexmedeTOMIDine in 0.9 % NaCL 400 mcg in 100 mls @ 3.475 mls/hr 03/09/22 23:30 03/10/22 02:28 Precedex IV 0.7 mcg/kg/hr TITRATE ELEAZAR 12.163 mls/hr Titration Protocol 0.2 MCG/KG/HR Lorazepam 0 mg 03/08/22 20:51 03/09/22 19:56 Lorazepam 2 Mg/Ml Inj IV 2 mg CIWAPRN PRN Administration Alcohol Withdrawal Protocol Multivitamins 1 tab 03/09/22 09:00 03/09/22 08:29 Multivitamin 1 Tablet PO 1 tab DAILY ELEAZAR Administration Nicotine 21 mg 03/09/22 09:00 03/09/22 08:29 Nicotine 21 Mg Patch TOP 21 mg DAILY ELEAZAR Administration Oxycodone HCl 5 mg 03/08/22 20:59 03/09/22 12:01 Oxycodone Ir 5 Mg Tablet PO 5 mg Q4HR PRN Administration Pain, Moderate (4-6) Thiamine HCl 100 mg 03/09/22 09:00 03/09/22 08:29 Thiamine 100 Mg Tablet PO 03/12/22 09:01 100 mg DAILY ELEAZAR Administration Exam Vital Signs (past 8 hours): - 03/09/22 20:03 03/09/22 20:14 03/09/22 20:33 Temperature 98.0 F Pulse Rate 132 H 132 H 109 H Respiratory Rate 38 H 36 H 46 H Blood Pressure 169/90 H 169/90 H 161/97 H Pulse Oximetry 96 Oxygen Delivery Method Oxygen Flow Rate 03/09/22 21:00 03/09/22 21:00 03/09/22 21:13 Temperature Pulse Rate 126 H 137 H Respiratory Rate 39 H 30 H Blood Pressure 148/83 H 168/90 H Pulse Oximetry 95 Oxygen Delivery Method Oxygen Flow Rate 03/09/22 21:30 03/09/22 21:30 03/09/22 22:00 Temperature Pulse Rate 116 H Respiratory Rate 43 H Blood Pressure 150/93 H 140/88 Pulse Oximetry 95 Oxygen Delivery Method Oxygen Flow Rate 03/09/22 22:00 03/09/22 22:30 03/09/22 22:30 Temperature Pulse Rate 113 H 116 H Respiratory Rate 47 H 43 H Blood Pressure 154/96 H Pulse Oximetry 95 96 Oxygen Delivery Method Oxygen Flow Rate 03/09/22 23:00 03/09/22 23:00 03/09/22 23:30 Temperature Pulse Rate 104 H Respiratory Rate 48 H Blood Pressure 135/89 148/88 H Pulse Oximetry 95 Oxygen Delivery Method Oxygen Flow Rate 03/09/22 23:30 03/10/22 00:00 03/10/22 00:00 Temperature 97.8 F Pulse Rate 123 H 110 H Respiratory Rate 48 H 43 H Blood Pressure 134/81 Pulse Oximetry 97 97 Oxygen Delivery Method Oxygen Flow Rate 03/09/22 23:00 03/10/22 00:30 03/10/22 00:36 Temperature Pulse Rate 91 H 91 H Respiratory Rate 70 H 38 H Blood Pressure 107/59 L Pulse Oximetry 97 95 95 Oxygen Delivery Method Room Air Oxygen Flow Rate 0 03/10/22 00:36 03/10/22 01:00 03/10/22 01:00 Temperature Pulse Rate 80 Respiratory Rate 52 H Blood Pressure 107/59 L 98/62 Pulse Oximetry 94 Oxygen Delivery Method Oxygen Flow Rate 03/10/22 01:30 03/10/22 01:30 03/09/22 23:00 Temperature 98.0 F Pulse Rate 77 Respiratory Rate 49 H Blood Pressure 107/65 Pulse Oximetry 93 Oxygen Delivery Method Room Air Oxygen Flow Rate 03/10/22 02:00 03/10/22 02:00 03/10/22 02:30 Temperature Pulse Rate 75 Respiratory Rate 52 H Blood Pressure 108/63 108/62 Pulse Oximetry 97 Oxygen Delivery Method Oxygen Flow Rate 03/10/22 02:30 Temperature Pulse Rate 74 Respiratory Rate 55 H Blood Pressure Pulse Oximetry 98 Oxygen Delivery Method Oxygen Flow Rate Oxygen Delivery Method Room Air Oxygen Flow Rate 0 Resp Other: tachypneic but visualized RR < rate on monitor Cardio Rate: tachycardic Rhythm: other (sinus) Objective Labs Result Diagrams: 03/09/22 06:01 03/09/22 13:10 Labs: Laboratory Results - last 24 hr 03/09/22 03/09/22 03/09/22 06:01 06:01 06:01 WBC 12.9 H RBC 3.81 L Hgb 13.6 Hct 39.2 L MCV 102.9 H MCH 35.6 H MCHC 34.6 RDW 13.3 Plt Count 91 L Neut % (Auto) 79.9 H Lymph % (Auto) 10.0 L [place] % (Auto) 9.0 Eos % (Auto) 0.3 L Baso % (Auto) 0.8 Neut # (Auto) 56138 H Lymph # (Auto) 1300 [place] # (Auto) 1200 H Eos # (Auto) 0 Baso # (Auto) 100 PT 10.1 INR 0.9 ABG pH ABG pCO2 ABG pO2 ABG HCO3 ABG Total CO2 ABG O2 Saturation ABG Base Excess FiO2 Sodium 133 L Potassium 3.5 Chloride 98 Carbon Dioxide 29 BUN 3 L Creatinine 0.56 L Estimated GFR > 60 BUN/Creatinine Ratio 5.4 L Glucose 106 Calcium 8.0 L Magnesium 1.4 L Total Bilirubin 1.3 AST 60 H ALT 32 Alkaline Phosphatase 151 H Total Protein 6.8 Albumin 3.9 Globulin 2.9 Albumin/Globulin Ratio 1.3 03/09/22 03/09/22 13:10 23:07 WBC RBC Hgb Hct MCV MCH MCHC RDW Plt Count Neut % (Auto) Lymph % (Auto) [place] % (Auto) Eos % (Auto) Baso % (Auto) Neut # (Auto) Lymph # (Auto) [place] # (Auto) Eos # (Auto) Baso # (Auto) PT INR ABG pH 7.50 H ABG pCO2 32.0 L ABG pO2 60 L ABG HCO3 25 ABG Total CO2 26 ABG O2 Saturation 93 L ABG Base Excess 2.0 FiO2 21 Sodium 131 L Potassium 3.3 L Chloride 96 L Carbon Dioxide 24 BUN 3 L Creatinine 0.50 L Estimated GFR > 60 BUN/Creatinine Ratio 6.0 Glucose 94 Calcium 7.9 L Magnesium 1.8 Total Bilirubin 1.3 AST 52 ALT 30 Alkaline Phosphatase 168 H Total Protein 6.9 Albumin 4.1 Globulin 2.8 Albumin/Globulin Ratio 1.5 Assessment & Plan Assessment and plan (1) Alcohol withdrawal with delirium in inpatient treatment: Status: Acute Plan: -Continue Precedex and scheduled IV Ativan -Continue thiamine/folate (2) Pancreatitis: Qualifiers: Acute pancreatitis complication: unspecified Chronicity: acute Pancreatitis type: alcohol induced Qualified Code(s): K85.20 - Alcohol induced acute pancreatitis without necrosis or infection Status: Acute Plan: -Continue bowel rest (3) Respiratory distress: Status: Acute Plan: -Continue HFNC -Check repeat pCXR and ABG Time Spent With Patient Critical Care time: I spent a total of [] minutes of critical care time on this patient's care today; this time is exclusive of procedural time.
--- NOTE | 2022-03-10 03:45 | DI.RAD.S_ITS ---
PROCEDURE: XR CHEST 1V INDICATIONS: intubation TECHNIQUE: One view of the chest was acquired. COMPARISON: [facility], CR, XR CHEST 1V, 03/10/2022, 3:07. FINDINGS: Surgical changes and devices: An endotracheal tube is seen, with the tip 2.5 cm above the yari. Lungs and pleura: The lungs are slightly better aerated on the current study than on the prior. No large pneumothorax or large pleural effusions are seen. However, the costophrenic angles are not included within the field of view of this study. Mediastinum: The cardiac contours are within normal limits. The aorta demonstrates calcification and tortuosity. Bones and chest wall: No suspicious bony lesions. Overlying soft tissues appear unremarkable. IMPRESSION: Intubation, with the tip of the endotracheal tube seen 2.5 cm above the yari. Improved pulmonary aeration. Dictated by: Bishnu Regalado M.D. on 03/10/2022 at 7:18 Approved by: Bishnu Regalado M.D. on 03/10/2022 at 7:20
--- NOTE | 2022-03-10 03:48 | PM.EVENT ---
Event Note Event Note (Rapid Response, Code, or fall): Patient continues to worsen - tachypnea did not improve. Tele ICU recommended repeat ABG, shows worsening alkalosis, recommended Intubation. Called mom and sister Alee to update. They agree with the plan. Overall prognosis is poor. Patient conditoin worsening. Anesthesia called for Intubation. Pending Intubation. We will obtain central line also given limited access. Repeat labs and Lipase. Once patient intubated and sedated, we might consider CT scan for further evaluation of intrabdominal process. Most of the ongoing events clinically seems to be related to and consistent with severe alcohol withdrawl.
[2022-03-10] MEDS: propofoL 1,000 MG/100 ML VIAL 2.085 MG IV (04:24)
[2022-03-10] MEDS: fentaNYL 1,000 MCG in DEXTROSE 5% IN WATER 230 ML 12.163 MCG IV (04:28)
[2022-03-10] MEDS: DEXTROSE 5%-LACTATED RINGERS 1,000 ML 125 ML IV ×2 (04:32→16:11)
[2022-03-10 05:15] LABS: Add Manual Diff / Slide Review NO; Basophils Absolute Auto 0 /uL (0-100); Basophils Percent Auto 0.1 % (0-2); Eosinophils Absolute Auto 0 /uL (0-450); Eosinophils Percent Auto 0.2 % (2-4); Hematocrit 34.9 % (41-53); Hemoglobin 12.2 g/dL (13.5-17.5); Lymphocytes Absolute Auto 1000 /uL (1100-4500); Lymphocytes Percent Auto 9.3 % (25-40); Mean Corpuscular Hemoglobin 36.2 PG (26-34); Mean Corpuscular Volume 103.3 fL (80-100); Monocytes Absolute Auto 800 /uL (0-900); Monocytes Percent Auto 7.4 % (3-14); Neutrophils Absolute Auto 8700 /uL (1500-7000); Platelet Count 87 X10^3/uL (150-400); Red Blood Cell Count 3.38 X10^6/uL (4.5-5.9); White Blood Cell Count 10.5 X10^3/uL (4.5-11.0)
[2022-03-10 05:21] LABS: Prothrombin Time 10.7 SECONDS (10.1-12.7)
[2022-03-10 05:28] LABS: Alanine Aminotransferase 20 IU/L (<50); Albumin 3.3 g/dL (3.5-5.0); Albumin Globulin Ratio 1.2 (1.0-2.8); Alkaline Phosphatase 125 U/L (38-126); Aspartate Aminotransferase 37 IU/L (17-59); BUN Creatinine Ratio 6.3 (6-22); Blood Urea Nitrogen 4 mg/dL (9-20); Calcium 7.5 mg/dL (8.4-10.2); Carbon Dioxide 27 mmol/L (22-32); Chloride 97 mmol/L (98-107); Estimated Glomerular Filt Rate > 60 mL/min (>60); Globulin 2.8 g/dL (1.7-4.1); Glucose 180 mg/dL (80-110); HEMOLYSIS < 15 (0-50); Magnesium 1.7 mg/dL (1.6-2.3); Potassium 3.3 mmol/L (3.4-5.1); Sodium 129 mmol/L (137-145); Total Protein 6.1 g/dL (6.3-8.2)
[2022-03-10 05:29] LABS: HCO3 ABG 25 mmol/L (22-26); PCO2 ABG 31.6 mmHg (35-45); TCO2 ABG 26 mmol/L (21-31)
[2022-03-10 05:29] LABS: Lipase 246 U/L (23-300)
[2022-03-10 05:30] LABS: Fractionated Inspired Oxygen 30; Oxygen Saturation ABG 87 % (95-100)
[2022-03-10] MEDS: SODIUM CHLORIDE 0.9% 1,000 ML 1000 ML IV (05:30)
[2022-03-10 05:31] LABS: PO2 ABG 48 mmHg (80-100)
[2022-03-10] MEDS: PIPERACILLIN/TAZO 3.375 GM in SODIUM CHLORIDE 0.9% 100 ML IV ×3 (05:32→21:54)
[2022-03-10 05:35] LABS: Fractionated Inspired Oxygen 60; HCO3 ABG 24 mmol/L (22-26); Oxygen Saturation ABG 99 % (95-100); PCO2 ABG 35.2 mmHg (35-45); PO2 ABG 123 mmHg (80-100); TCO2 ABG 25 mmol/L (21-31); pH ABG 7.44 (7.35-7.45)
[2022-03-10] MEDS: CHLORHEXIDINE GLUCONATE 15 ML CUP PO ×2 (05:42→11:11)
[2022-03-10] MEDS: ONDANSETRON 4 MG/2 ML INJ IV (07:14)
--- NOTE | 2022-03-10 07:28 | DI.RAD.S_ITS ---
PROCEDURE: XR CHEST 1V INDICATIONS: reintubation/OGT placement TECHNIQUE: One view of the chest was acquired. COMPARISON: , CT, CT ABDOMEN PELVIS W CON, 09/01/2019, 8:31. , CR, XR CHEST 1V, 03/10/2022, 3:07. , CR, XR CHEST 1V, 03/10/2022, 4:08. FINDINGS: Surgical changes and devices: An endotracheal tube is seen, with the tip 4 cm above the yari. A gastric tube is seen, with the tip overlying the mid stomach. The side hole is clearly seen below the level of the diaphragm. the level of the diaphragm. Lungs and pleura: Low lung volumes are noted. This causes a crowded appearance to the lung markings and limits evaluation. Mild generalized interstitial prominence can be Seen. Mediastinum: The cardiac contours are within normal limits. The aorta demonstrates calcification and tortuosity. Bones and chest wall: No suspicious bony lesions. Age-appropriate bony degenerative changes are seen. Remote right lateral inferior rib fractures are seen. Overlying soft tissues appear unremarkable. IMPRESSION: The tip of the gastric tube can be seen overlying the mid stomach, with the side hole below the level of the diaphragm. The tip of the endotracheal tube is seen 4 cm above the yari. Mild generalized interstitial prominence can be seen. Incidental note is made of: Remote right inferolateral rib fractures Dictated by: Bishnu Regalado M.D. on 03/10/2022 at 7:04 Approved by: Bishnu Regalado M.D. on 03/10/2022 at 7:07
--- NOTE | 2022-03-10 07:31 | DI.RAD.S_ITS ---
PROCEDURE: XR ABDOMEN 1V INDICATIONS: n/v, intubated TECHNIQUE: One view of the abdomen acquired. COMPARISON: [facility], CR, XR CHEST 1V, 03/10/2022, 7:27. [facility], CR, XR CHEST 1V, 03/10/2022, 4:08. [facility], CR, XR CHEST 1V, 03/10/2022, 3:07. [facility], CT, CT ABDOMEN PELVIS W CON, 09/01/2019, 8:31. FINDINGS: Surgical changes and devices: The tip of the gastric tube can be seen overlying the mid stomach. Bowel: A prominent loop of dilated bowel can be seen within the right lower quadrant measuring 13 cm. No additional dilated loops of bowel are seen. On this supine only study, air-fluid levels are not assessed. Soft tissues: No suspicious abdominal calcifications. Visualized solid organ contours appear normal in size. Bones: No suspicious bony lesions. Age-appropriate bony degenerative changes are seen. IMPRESSION: There is a dilated loop of bowel seen within the right lower quadrant, which is attributed to a dilated cecum. Please consider a follow-up CT of the abdomen and pelvis for further evaluation. The tip of the gastric tube is seen overlying the mid stomach. Dictated by: Bishnu Regalado M.D. on 03/10/2022 at 7:29 Approved by: Bishnu Regalado M.D. on 03/10/2022 at 7:31
--- NOTE | 2022-03-10 07:43 | ED_ITS ---
ED Provider Consult/Code Note General Date Patient Seen: 03/10/22 Time Patient Seen: 07:15 Reason for Admission: Pancreatic pain Events leading to Consult/Code: This is a 62-year-old male who was intubated overnight. This morning he pulled off the automatic pilot mechanic balloon of his ETT. The balloon that is connect to a syringe is used to inflate the cuff to the ET tube causing a cuff leak. Patient has the tube still in place, hooked up to ventilator when I arrived. Still oxygenating with appropriate ETCO2 and had additional sedation prior to my arrival and is now fully sedated. Patient also has NG tube in place draining green bile. Patient BP, HR, O2 are within normal parameters. Dr. Jefferson the hospitalist is at bedside. Respiratory Auscultation: clear to auscultation bilaterally ET Tube Size: 7.5 Tube Secured Depth (cm): 23 Tube Secured Location: teeth Tube Placement Confirmation: Equal breath sounds bilaterally, No breath sounds over epigastrium and Chest Xray Care Provided Description of care provided: Patient initial ET tube was still in place, a bougie was passed through the ET tube in place. Initial tube was removed and new ET tube with the balloon intact was placed over the bougie at 25 at the lip in 23 at the teeth without issue at the same level as prior. Patient was also take did with equal breath sounds bilaterally maintaining end-tidal CO2 as well as oxygenation no hypoxia during the procedure. Balloon was inflated. ET tube was secured. Chest x-ray was obtained for evaluation of placement. Patient had some mild cough during procedure but no other changes. Patient has breath sounds bilaterally on auscultation, O2 sat and end-tidal CO2 were maintained throughout the procedure and afterwards with no drop, chest x-ray was obtained and reviewed by myself and and tube appears to be in place. Outcome Outcome: Successful re-intubation after cuff leak secondary to automatic pilot mechanic balloon being ripped off by patient.
[2022-03-10] MEDS: dexmedeTOMIDine in 0.9 % NaCL 400 MCG/100 ML PLAST..BAG 5.213 MCG IV (07:58)
--- NOTE | 2022-03-10 08:28 | RT ---
pt ligia well, sedated and et tube secure. No distress noted, bag mask unit at [facility] plugged into o2 outlet
--- NOTE | 2022-03-10 08:30 | RT ---
Called to bedside for leaking et cuff. Pt pulled off yard pilot ballon. Pt [id number]% and MD called to bedside. Bougie used without incident and new 7.5 inserted by MD Sao2 99%. Etco2 30 and chest xray called. Pt secured 23 at lip and bilat breathsounds. Pt placed back on vent with current settings, pt ligia well.Rn at bedside and all rales up
[2022-03-10] MEDS: PANTOPRAZOLE 40 MG VIAL IV (09:00)
--- NOTE | 2022-03-10 09:25 | DI.RAD.S_ITS ---
PROCEDURE: XR CHEST FOR PICC 1V INDICATIONS: PICC placement COMPARISON: [facility], CR, XR CHEST 1V, 03/10/2022, 7:27. FINDINGS: PICC was placed by the intravenous therapy team from the right side. Fluoroscopic spot film demonstrates the tip of PICC projecting to the area of near the cavoatrial junction, likely protruding slightly into the right atrium. A stable endotracheal tube and gastric tube can be seen. IMPRESSION: Tip of PICC projects to the area of cavoatrial junction, likely protruding slightly into the right atrium. Dictated by: Bishnu Regalado M.D. on 03/10/2022 at 8:43 Approved by: Bishnu Regalado M.D. on 03/10/2022 at 8:43
--- NOTE | 2022-03-10 10:34 | P.TELICUPN_ITS ---
Subjective Subjective Interval history: 62 y.o. male admitted 03/08 w/ EtOH pancreatitis and EtOH withdrawal.? -- Failed ativan infusion and switched over to precedex infusion -- Emergently intubated for severe agitation and tachypnea -- Sedated with precedex/propofol/fentanyl infusion -- Not ready for SAT or SBT until alcohol delirium tremens improve Current Medications Current Medications Medications: Home Medications nicotine 21 mg/24 hr daily transdermal patch 21 mg topical BEDTIME #21 ea 09/03/19 [Rx Confirmed 03/08/22] Visit Medications (administered) Generic Name Dose Route Start Last Admin Trade Name Freq PRN Reason Stop Dose Admin Chlorhexidine Gluconate 15 ml 03/10/22 06:00 03/10/22 05:42 Chlorhexidine Gluconate 15 Ml Cup PO 15 ml Q6HR ELEAZAR Administration Folic Acid 1 mg 03/09/22 09:00 03/09/22 08:29 Folic Acid 1 Mg Tablet PO 1 mg DAILY ELEAZAR Administration dexmedeTOMIDine in 0.9 % NaCL 400 mcg in 100 mls @ 3.475 mls/hr 03/09/22 23:30 03/10/22 07:58 Precedex IV 0.3 mcg/kg/hr TITRATE ELEAZAR 5.213 mls/hr Administration Protocol 0.2 MCG/KG/HR Dextrose/Lactated Ringer's 1,000 mls @ 125 mls/hr 03/10/22 03:45 03/10/22 04:32 Dextrose 5%-Lactated Ringers IV 125 mls/hr CONT ELEAZAR Administration Fentanyl 1,000 mcg/ Dextrose 250 mls @ 12.163 mls/hr 03/10/22 03:45 03/10/22 08:00 IV 1 mcg/kg/hr TITRATE ELEAZAR 17.375 mls/hr Titration Protocol 0.7 MCG/KG/HR Propofol 1,000 mg in 100 mls @ 2.085 mls/hr 03/10/22 03:45 03/10/22 08:00 Propofol IV 30 mcg/kg/min TITRATE ELEAZAR 12.51 mls/hr Titration Protocol 5 MCG/KG/MIN Piperacillin Sod/Tazobactam 100 mls @ 25 mls/hr 03/10/22 05:30 03/10/22 05:32 Sod 3.375 gm/ Sodium Chloride IV 25 mls/hr Q8H ELEAZAR Administration Multivitamins 1 tab 03/09/22 09:00 03/09/22 08:29 Multivitamin 1 Tablet PO 1 tab DAILY ELEAZAR Administration Nicotine 21 mg 03/09/22 09:00 03/09/22 08:29 Nicotine 21 Mg Patch TOP 21 mg DAILY ELEAZAR Administration Ondansetron HCl 4 mg 03/08/22 20:51 03/10/22 07:14 Ondansetron 4 Mg/2 Ml Inj IV 4 mg Q6HR PRN Administration Nausea And Vomiting Thiamine HCl 100 mg 03/09/22 09:00 03/09/22 08:29 Thiamine 100 Mg Tablet PO 03/12/22 09:01 100 mg DAILY ELEAZAR Administration Objective Ventilator Parameters: Ventilator Settings FiO2 35 RT Vent Frequency 20 Ventilator Tidal Volume 450 Exhaled Positive End Expiratory 8 Pressure Inspiratory Phase Time 1 Patient Position HOB >= 30 degrees Labs Result Diagrams: 03/10/22 04:45 03/10/22 04:45 Labs: Laboratory Results - last 24 hr 03/09/22 03/09/22 03/10/22 13:10 23:07 03:16 WBC RBC Hgb Hct MCV MCH MCHC RDW Plt Count Neut % (Auto) Lymph % (Auto) [place] % (Auto) Eos % (Auto) Baso % (Auto) Neut # (Auto) Lymph # (Auto) [place] # (Auto) Eos # (Auto) Baso # (Auto) PT INR ABG pH 7.50 H 7.50 H ABG pCO2 32.0 L 31.6 L ABG pO2 60 L 48 L* ABG HCO3 25 25 ABG Total CO2 26 26 ABG O2 Saturation 93 L 87 L ABG Base Excess 2.0 1.0 FiO2 21 30 Sodium 131 L Potassium 3.3 L Chloride 96 L Carbon Dioxide 24 BUN 3 L Creatinine 0.50 L Estimated GFR > 60 BUN/Creatinine Ratio 6.0 Glucose 94 Calcium 7.9 L Magnesium 1.8 Total Bilirubin 1.3 AST 52 ALT 30 Alkaline Phosphatase 168 H Total Protein 6.9 Albumin 4.1 Globulin 2.8 Albumin/Globulin Ratio 1.5 Lipase 03/10/22 03/10/22 03/10/22 04:45 04:45 04:45 WBC 10.5 RBC 3.38 L Hgb 12.2 L Hct 34.9 L MCV 103.3 H MCH 36.2 H MCHC 35.0 RDW 13.0 Plt Count 87 L Neut % (Auto) 83.0 H Lymph % (Auto) 9.3 L [place] % (Auto) 7.4 Eos % (Auto) 0.2 L Baso % (Auto) 0.1 Neut # (Auto) 8700 H Lymph # (Auto) 1000 L [place] # (Auto) 800 Eos # (Auto) 0 Baso # (Auto) 0 PT 10.7 INR 1.0 ABG pH ABG pCO2 ABG pO2 ABG HCO3 ABG Total CO2 ABG O2 Saturation ABG Base Excess FiO2 Sodium 129 L Potassium 3.3 L Chloride 97 L Carbon Dioxide 27 BUN 4 L Creatinine 0.63 L Estimated GFR > 60 BUN/Creatinine Ratio 6.3 Glucose 180 H Calcium 7.5 L Magnesium 1.7 Total Bilirubin 1.0 AST 37 ALT 20 Alkaline Phosphatase 125 Total Protein 6.1 L Albumin 3.3 L Globulin 2.8 Albumin/Globulin Ratio 1.2 Lipase 03/10/22 03/10/22 04:45 05:03 WBC RBC Hgb Hct MCV MCH MCHC RDW Plt Count Neut % (Auto) Lymph % (Auto) [place] % (Auto) Eos % (Auto) Baso % (Auto) Neut # (Auto) Lymph # (Auto) [place] # (Auto) Eos # (Auto) Baso # (Auto) PT INR ABG pH 7.44 ABG pCO2 35.2 ABG pO2 123 H ABG HCO3 24 ABG Total CO2 25 ABG O2 Saturation 99 ABG Base Excess 0.0 FiO2 60 Sodium Potassium Chloride Carbon Dioxide BUN Creatinine Estimated GFR BUN/Creatinine Ratio Glucose Calcium Magnesium Total Bilirubin AST ALT Alkaline Phosphatase Total Protein Albumin Globulin Albumin/Globulin Ratio Lipase 246 D Exam Vital Signs (past 8 hours): - 03/10/22 03:00 03/10/22 03:00 03/10/22 03:30 Temperature Pulse Rate 74 Respiratory Rate 55 H Blood Pressure 102/60 104/68 Pulse Oximetry 96 Oxygen Delivery Method Fraction of Inspired Oxygen 03/10/22 03:30 03/10/22 04:00 03/10/22 04:00 Temperature Pulse Rate 74 75 Respiratory Rate 54 H 52 H Blood Pressure 114/72 Pulse Oximetry 96 98 Oxygen Delivery Method Fraction of Inspired Oxygen 03/10/22 04:10 03/10/22 04:10 03/10/22 04:21 Temperature Pulse Rate 74 66 Respiratory Rate 26 H 15 Blood Pressure 116/66 Pulse Oximetry 99 99 Oxygen Delivery Method Fraction of Inspired Oxygen 03/10/22 04:21 03/10/22 04:30 03/10/22 04:39 Temperature Pulse Rate 66 Respiratory Rate 15 Blood Pressure 90/55 L 90/59 L Pulse Oximetry 97 Oxygen Delivery Method Fraction of Inspired Oxygen 03/10/22 04:39 03/10/22 04:40 03/10/22 04:40 Temperature Pulse Rate 66 66 Respiratory Rate 15 14 Blood Pressure 83/49 L Pulse Oximetry 96 96 Oxygen Delivery Method Fraction of Inspired Oxygen 03/10/22 04:45 03/10/22 04:45 03/10/22 04:55 Temperature Pulse Rate 66 67 Respiratory Rate 12 16 Blood Pressure 86/50 L Pulse Oximetry 96 100 Oxygen Delivery Method Fraction of Inspired Oxygen 03/10/22 04:55 03/10/22 05:00 03/10/22 05:00 Temperature 98.5 F Pulse Rate 68 Respiratory Rate 17 Blood Pressure 91/52 L 88/50 L Pulse Oximetry 100 Oxygen Delivery Method Fraction of Inspired Oxygen 03/10/22 05:15 03/10/22 05:15 03/10/22 05:00 Temperature Pulse Rate 69 Respiratory Rate 16 Blood Pressure 106/59 L Pulse Oximetry 99 Oxygen Delivery Method Mechanical Ventilation Fraction of Inspired Oxygen 03/10/22 05:30 03/10/22 05:30 03/10/22 05:45 Temperature Pulse Rate 68 Respiratory Rate 17 Blood Pressure 99/58 L 107/67 Pulse Oximetry 96 Oxygen Delivery Method Fraction of Inspired Oxygen 03/10/22 05:45 03/10/22 06:00 03/10/22 06:00 Temperature 99.2 F Pulse Rate 72 75 Respiratory Rate 15 18 Blood Pressure 108/65 Pulse Oximetry 97 99 Oxygen Delivery Method Fraction of Inspired Oxygen 03/10/22 06:15 03/10/22 06:15 03/10/22 06:30 Temperature Pulse Rate 78 Respiratory Rate 20 Blood Pressure 128/69 127/72 Pulse Oximetry 100 Oxygen Delivery Method Fraction of Inspired Oxygen 03/10/22 06:30 03/10/22 07:00 03/10/22 07:00 Temperature Pulse Rate 81 86 Respiratory Rate 20 20 Blood Pressure 131/79 Pulse Oximetry 100 99 Oxygen Delivery Method Fraction of Inspired Oxygen 03/10/22 07:15 03/10/22 07:15 03/10/22 07:16 Temperature Pulse Rate 88 87 Respiratory Rate 31 H 21 Blood Pressure 122/69 Pulse Oximetry 98 98 Oxygen Delivery Method Fraction of Inspired Oxygen 03/10/22 07:16 03/10/22 07:30 03/10/22 07:30 Temperature Pulse Rate 82 Respiratory Rate 25 H Blood Pressure 109/62 123/68 Pulse Oximetry 100 Oxygen Delivery Method Fraction of Inspired Oxygen 03/10/22 07:45 03/10/22 07:45 03/10/22 08:00 Temperature Pulse Rate 82 Respiratory Rate 18 Blood Pressure 103/55 L 90/61 Pulse Oximetry 95 Oxygen Delivery Method Fraction of Inspired Oxygen 03/10/22 08:00 03/10/22 08:15 03/10/22 08:15 Temperature Pulse Rate 80 79 Respiratory Rate 20 21 Blood Pressure 92/63 Pulse Oximetry 100 100 Oxygen Delivery Method Fraction of Inspired Oxygen 03/10/22 08:30 03/10/22 08:30 03/10/22 08:45 Temperature Pulse Rate 78 Respiratory Rate 19 Blood Pressure 93/63 101/67 Pulse Oximetry 99 Oxygen Delivery Method Fraction of Inspired Oxygen 03/10/22 08:45 03/10/22 09:00 03/10/22 09:00 Temperature Pulse Rate 78 76 Respiratory Rate 19 20 Blood Pressure 101/69 Pulse Oximetry 99 100 Oxygen Delivery Method Fraction of Inspired Oxygen 03/10/22 09:15 03/10/22 09:15 03/10/22 09:30 Temperature Pulse Rate 79 Respiratory Rate 20 Blood Pressure 98/67 103/72 Pulse Oximetry 100 Oxygen Delivery Method Fraction of Inspired Oxygen 03/10/22 09:30 03/10/22 03:35 Temperature Pulse Rate 80 Respiratory Rate 20 Blood Pressure Pulse Oximetry 97 Oxygen Delivery Method Fraction of Inspired Oxygen 100 Fraction of Inspired Oxygen 100 Oxygen Delivery Method Mechanical Ventilation Oxygen Flow Rate 0 Quality TeleICU VTE Deep Vein Thrombosis/Pulmonary Embolism Present on Admission: No Assessment & Plan Assessment & Plan narrative: NEURO: # Acute encephalopathy -- Secondary to severe alcohol withdrawal -- Sedated w/ propofol, precedex, and fentanyl -- RASS goal -1 to 0 -- EArly mobility when encephalopathy improves # Alcohol withdrawal -- On thiamine/folic acid/MTV RESP: # Acute respiratory failure -- Secondary to severe encephalopathy and alcohl withdrwal -- Sedation as above -- Check SAT and SBT tomorrow -- Titrate down PEEP and FiO2 to maintain goal SPO2 > 88% -- HOB elevation -- Aspiration precaution CVS: -- Goal SBP< 140 -- Cont IVF GI: # Acute pancreatitis -- SEcondary to alcohol abuse -- Cont IVF -- Start tube feed tomorrow if remains intubated ENDO: -- Goal BS < 180 D/w RN and RT at bedside. Time Spent With Patient Critical Care time: I spent a total of [] minutes of critical care time on this patient's care today; this time is exclusive of procedural time.
[2022-03-10] MEDS: MAGNESIUM SULFATE 2 GM/50 ML PIGGYBACK IV (11:10)
[2022-03-10] MEDS: POTASSIUM CHLORIDE IN WATER 10 MEQ/100 ML PIGGYBACK 100 MEQ IV ×4 (11:12→14:43)
[2022-03-10] MEDS: propofoL 1,000 MG/100 ML VIAL 12.51 MG IV ×2 (11:26→18:41)
[2022-03-10 11:41] LABS: HCO3 ABG 24 mmol/L (22-26); PCO2 ABG 32.4 mmHg (35-45); PO2 ABG 72 mmHg (80-100); TCO2 ABG 25 mmol/L (21-31); pH ABG 7.48 (7.35-7.45)
[2022-03-10 11:42] LABS: Fractionated Inspired Oxygen 35; Oxygen Saturation ABG 96 % (95-100)
[2022-03-10] MEDS: NOREPINEPHRINE BITARTRATE/D5W 4 MG/250 ML PLAST..BAG 7.5 MG IV (12:30)
[2022-03-10] MEDS: fentaNYL 1,000 MCG in DEXTROSE 5% IN WATER 230 ML 17.375 MCG IV (15:01)
--- NOTE | 2022-03-10 15:26 | DI.RAD.S_ITS ---
PROCEDURE: XR CHEST 1V INDICATIONS: replaced OG tube, confirm placement TECHNIQUE: One view of the chest was acquired. COMPARISON: [facility], CR, XR CHEST FOR PICC 1V, 03/10/2022, 9:26. [facility], CR, XR CHEST 1V, 03/10/2022, 7:27. [facility], CR, XR CHEST 1V, 03/10/2022, 4:08. [facility], CR, XR CHEST 1V, 03/10/2022, 3:07. FINDINGS: Surgical changes and devices: An endotracheal tube is seen, with the tip 4 cm above the yari. A gastric tube is seen, with the tip overlying the mid stomach. There is a stable right-sided PICC line. Lungs and pleura: An incomplete inspiratory result is noted, causing a crowded appearance to the lung markings. No focal infiltrates are seen. No pneumothorax or significant pleural effusions are seen. Mediastinum: Mediastinal contours appear normal. Heart size is mildly enlarged. Bones and chest wall: No suspicious bony lesions. Age-appropriate bony degenerative changes are seen. Remote right inferolateral rib fractures are seen. Overlying soft tissues appear unremarkable. IMPRESSION: The tip of the gastric tube overlies the mid stomach. Mild cardiomegaly. Stable endotracheal tube. Stable PICC line. Dictated by: Bishnu Regalado M.D. on 03/10/2022 at 14:46 Approved by: Bishnu Regalado M.D. on 03/10/2022 at 14:47
--- NOTE | 2022-03-10 15:41 | P.PN_ITS ---
Subjective Subjective Date Patient Seen: 03/10/22 Interval history: intubated overnight. This AM patient pulled at balloon cuff which detached, needed replacement. Patient had ETT replaced over bougie with ED provider whom was readily available for assistance. He is now sedated on fentanyl, propofol, and precedex given this occurred on fentanyl and propofol only. Family at bedside relayed history of prior DTs (no intubation), and acute liver failure which improved. Exam Vital Signs (past 8 hours): - 03/10/22 07:45 03/10/22 07:45 03/10/22 08:00 Temperature Pulse Rate 82 Respiratory Rate 18 Blood Pressure 103/55 L 90/61 Pulse Oximetry 95 Oxygen Delivery Method 03/10/22 08:00 03/10/22 08:15 03/10/22 08:15 Temperature Pulse Rate 80 79 Respiratory Rate 20 21 Blood Pressure 92/63 Pulse Oximetry 100 100 Oxygen Delivery Method 03/10/22 08:30 03/10/22 08:30 03/10/22 08:45 Temperature Pulse Rate 78 Respiratory Rate 19 Blood Pressure 93/63 101/67 Pulse Oximetry 99 Oxygen Delivery Method 03/10/22 08:45 03/10/22 09:00 03/10/22 09:00 Temperature Pulse Rate 78 76 Respiratory Rate 19 20 Blood Pressure 101/69 Pulse Oximetry 99 100 Oxygen Delivery Method 03/10/22 09:15 03/10/22 09:15 03/10/22 09:30 Temperature Pulse Rate 79 Respiratory Rate 20 Blood Pressure 98/67 103/72 Pulse Oximetry 100 Oxygen Delivery Method 03/10/22 09:30 03/10/22 09:00 03/10/22 09:45 Temperature Pulse Rate 80 Respiratory Rate 20 Blood Pressure 98/66 Pulse Oximetry 97 Oxygen Delivery Method Mechanical Ventilation 03/10/22 09:45 03/10/22 10:00 03/10/22 10:00 Temperature Pulse Rate 77 78 Respiratory Rate 20 20 Blood Pressure 98/66 Pulse Oximetry 98 97 Oxygen Delivery Method 03/10/22 10:15 03/10/22 10:15 03/10/22 10:30 Temperature Pulse Rate 77 Respiratory Rate 20 Blood Pressure 95/65 94/65 Pulse Oximetry 97 Oxygen Delivery Method 03/10/22 10:30 03/10/22 10:45 03/10/22 10:45 Temperature Pulse Rate 76 75 Respiratory Rate 20 20 Blood Pressure 97/64 Pulse Oximetry 97 98 Oxygen Delivery Method 03/10/22 11:00 03/10/22 11:00 03/10/22 11:15 Temperature Pulse Rate 75 76 Respiratory Rate 20 20 Blood Pressure 102/66 Pulse Oximetry 98 97 Oxygen Delivery Method 03/10/22 11:15 03/10/22 12:15 03/10/22 13:00 Temperature 99.1 F Pulse Rate Respiratory Rate Blood Pressure 102/67 Pulse Oximetry Oxygen Delivery Method Mechanical Ventilation 03/10/22 11:30 03/10/22 11:30 03/10/22 11:45 Temperature Pulse Rate 69 68 Respiratory Rate 16 16 Blood Pressure 90/59 L Pulse Oximetry 96 97 Oxygen Delivery Method 03/10/22 11:45 03/10/22 12:00 03/10/22 12:00 Temperature Pulse Rate 68 Respiratory Rate 16 Blood Pressure 86/52 L 85/55 L Pulse Oximetry 98 Oxygen Delivery Method 03/10/22 12:15 03/10/22 12:15 03/10/22 12:30 Temperature Pulse Rate 68 Respiratory Rate 16 Blood Pressure 82/54 L 93/61 Pulse Oximetry 98 Oxygen Delivery Method 03/10/22 12:30 03/10/22 12:45 03/10/22 12:45 Temperature Pulse Rate 70 68 Respiratory Rate 16 17 Blood Pressure 112/72 Pulse Oximetry 97 99 Oxygen Delivery Method 03/10/22 13:00 03/10/22 13:00 03/10/22 13:15 Temperature Pulse Rate 68 Respiratory Rate 17 Blood Pressure 113/72 103/66 Pulse Oximetry 98 Oxygen Delivery Method 03/10/22 13:15 03/10/22 13:30 03/10/22 13:30 Temperature Pulse Rate 68 72 Respiratory Rate 17 18 Blood Pressure 94/60 Pulse Oximetry 98 98 Oxygen Delivery Method 03/10/22 13:45 03/10/22 13:45 03/10/22 14:00 Temperature Pulse Rate 72 Respiratory Rate 17 Blood Pressure 92/63 90/61 Pulse Oximetry 98 Oxygen Delivery Method 03/10/22 14:00 03/10/22 14:15 03/10/22 14:15 Temperature Pulse Rate 73 72 Respiratory Rate 18 21 Blood Pressure 90/59 L Pulse Oximetry 97 98 Oxygen Delivery Method Fraction of Inspired Oxygen 100 Oxygen Delivery Method Mechanical Ventilation Oxygen Flow Rate 40 Narrative Exam Narrative: General:?ill appearing male, intubated and sedated, no distress. HEENT:? Normocephalic, atraumatic. MMM. OG tube and ETT in place. Neck: supple and symmetric, trachea is midline, no cervical adenopathy. Chest:? Normal AP diameter and contour without kyphoscoliosis, equal chest rise bilaterally. Lungs:? coarse rhonchi bilaterally. Cardio:?RRR no m/r/g. Abdomen: Soft, nondistended Musculoskeletal:?no deformity. Extremities: No edema or joint effusions. No cyanosis or clubbing. Skin:? Pale,? Warm to touch,dry and intact without rashes, ulcerations or petechiae.? Neuro:? Sedated, reportedly moving all extremities shortly after intubation Psych:? Unable to assess Objective Labs Result Diagrams: 03/10/22 04:45 03/10/22 04:45 Labs: Laboratory Results - last 24 hr 03/09/22 03/10/22 03/10/22 23:07 03:16 04:45 WBC 10.5 RBC 3.38 L Hgb 12.2 L Hct 34.9 L MCV 103.3 H MCH 36.2 H MCHC 35.0 RDW 13.0 Plt Count 87 L Neut % (Auto) 83.0 H Lymph % (Auto) 9.3 L [place] % (Auto) 7.4 Eos % (Auto) 0.2 L Baso % (Auto) 0.1 Neut # (Auto) 8700 H Lymph # (Auto) 1000 L [place] # (Auto) 800 Eos # (Auto) 0 Baso # (Auto) 0 PT INR ABG pH 7.50 H 7.50 H ABG pCO2 32.0 L 31.6 L ABG pO2 60 L 48 L* ABG HCO3 25 25 ABG Total CO2 26 26 ABG O2 Saturation 93 L 87 L ABG Base Excess 2.0 1.0 FiO2 21 30 Sodium Potassium Chloride Carbon Dioxide BUN Creatinine Estimated GFR BUN/Creatinine Ratio Glucose Calcium Magnesium Total Bilirubin AST ALT Alkaline Phosphatase Total Protein Albumin Globulin Albumin/Globulin Ratio Lipase 03/10/22 03/10/22 03/10/22 04:45 04:45 04:45 WBC RBC Hgb Hct MCV MCH MCHC RDW Plt Count Neut % (Auto) Lymph % (Auto) [place] % (Auto) Eos % (Auto) Baso % (Auto) Neut # (Auto) Lymph # (Auto) [place] # (Auto) Eos # (Auto) Baso # (Auto) PT 10.7 INR 1.0 ABG pH ABG pCO2 ABG pO2 ABG HCO3 ABG Total CO2 ABG O2 Saturation ABG Base Excess FiO2 Sodium 129 L Potassium 3.3 L Chloride 97 L Carbon Dioxide 27 BUN 4 L Creatinine 0.63 L Estimated GFR > 60 BUN/Creatinine Ratio 6.3 Glucose 180 H Calcium 7.5 L Magnesium 1.7 Total Bilirubin 1.0 AST 37 ALT 20 Alkaline Phosphatase 125 Total Protein 6.1 L Albumin 3.3 L Globulin 2.8 Albumin/Globulin Ratio 1.2 Lipase 246 D 03/10/22 03/10/22 05:03 11:15 WBC RBC Hgb Hct MCV MCH MCHC RDW Plt Count Neut % (Auto) Lymph % (Auto) [place] % (Auto) Eos % (Auto) Baso % (Auto) Neut # (Auto) Lymph # (Auto) [place] # (Auto) Eos # (Auto) Baso # (Auto) PT INR ABG pH 7.44 7.48 H ABG pCO2 35.2 32.4 L ABG pO2 123 H 72 L ABG HCO3 24 24 ABG Total CO2 25 25 ABG O2 Saturation 99 96 ABG Base Excess 0.0 0.0 FiO2 60 35 Sodium Potassium Chloride Carbon Dioxide BUN Creatinine Estimated GFR BUN/Creatinine Ratio Glucose Calcium Magnesium Total Bilirubin AST ALT Alkaline Phosphatase Total Protein Albumin Globulin Albumin/Globulin Ratio Lipase COUNT INCLUDES THE [facility] Medical History Alcohol abuse Alcoholic pancreatitis Amputation finger Back pain Chronic pancreatitis Fracture of finger, distal phalanx, open Fracture of finger, middle phalanx, open Onychomycosis Seizures Surgical History History of surgical amputation of finger Family History Mother Osteoarthritis Father Alcohol abuse Medical history unknown Social History household members: none Smoking Status: Current every day smoker alcohol intake: current substance use type: marijuana Assessment & Plan Assessment & Plan narrative: 1. Acute alcohol withdrawal with delirium tremens - intubated evening of 03/09 for worsening respiratory status and tachypnea in the setting of DTs and probable aspiration. - minimal vent settings currently - continue sedation with fentanyl, precedex, and propofol - consider weaning from medications tomorrow, but given DTs suspect it make take a few days to get off of ventilator. - patient does have history of prior DTs and acute liver failure from EtOH. 2. Acute pancreatitis - will keep NPO for now also given ileus, most likely from EtOH. 3. Acute respiratory failure with hypoxia secondary to aspiration pneumonia and septic shock - needed small amounts of levophed for hypotension today, possibly in setting of sedation but given respiratory failure as well will manage as septic shock - wean from levophed as able - continue zosyn, follow up cultures. 4. Probable ileus - will obtain CT scan when more stable. abdominal xray with bowel distension. Will keep NG tube to suction. Consider CT tomorrow depending on output. 5. Nicotine dependence - Will continue nicotine patch 6. Thrombocytopenia - probably from EtOH, also possible sepsis. Will continue to monitor. No active bleeding that is obvious and transfuse only if necessary. DVT prophylaxis * The patient is somewhat thrombocytopenic, will continue SCDs, will defer Lovenox at this time as these continue to decline slightly I spent 40 minutes providing critical care management this patient. This excludes time spent in performing separately billed procedures. Time Spent With Patient Critical Care time: I spent a total of [] minutes of critical care time on this patient's care today; this time is exclusive of procedural time. Quality VTE Deep Vein Thrombosis/Pulmonary Embolism Present on Admission: No
--- NOTE | 2022-03-10 15:43 | PC.NURSE ---
Addendum entered by Ly Carroll R.N. 03/10/22 18:31: Dr Jefferson aware of urine output, no new orders at this time Addendum entered by Ly Carroll R.N. 03/10/22 16:50: Pt Mom took home his cellphone and ore charger when she visited today Original Note: 2372 Pt was being repositioned by [facility] FREDDY Ramirez and [facility] FREDDY Kee, this nurse was called into the room pt had pulled off the dispatcher ship pilot balloon of his ETT when he was unrestrained, causing a cuff leak. RT Leonor, Dr Jefferson and Dr Lee were called to the bedside, it was determined that the ETT needed to be replaced. Sedation was increased, OG tube remained in place, draining green bile, VSS. Dr Lee replaced ETT, verified by CXR, Dr Jefferson placed new orders for additional sedation, adding Precedex to Fentanyl and Propofol. Vent settings are FiO2 35% PEEP 8 RR [address] Jefferson at bedside, current OG tube clogged, replaced OG, verified by CXR, cleared to use, connected to LIS
[2022-03-10] MEDS: VANCOMYCIN 1,500 MG/300 ML PIGGYBACK 200 MG IV (20:34)
--- NOTE | 2022-03-10 21:09 | PM.ICURNDS ---
- :: This patient was seen via real time interactive two-way audiovisual telecommunication. Note: Pt was intubated eralier, on mechanical ventilation, comfortable, HD stable, electrolytes getting replaced
[2022-03-11] VITALS (64 sets, daily range): BP systolic 93–158; BP diastolic 59–82; PULSE 56–84; RESP 14–34; TEMP 36.7–36.9; O2SAT 93–100
[2022-03-11] MEDS: CHLORHEXIDINE GLUCONATE 15 ML CUP PO ×3 (00:01→12:01)
[2022-03-11] MEDS: dexmedeTOMIDine in 0.9 % NaCL 400 MCG/100 ML PLAST..BAG 6.95 MCG IV ×3 (00:01→23:12)
[2022-03-11] MEDS: DEXTROSE 5%-LACTATED RINGERS 1,000 ML 125 ML IV ×2 (00:36→19:05)
[2022-03-11] MEDS: propofoL 1,000 MG/100 ML VIAL 12.51 MG IV (02:40)
--- NOTE | 2022-03-11 03:45 | DI.RAD.S_ITS ---
PROCEDURE: XR CHEST 1V INDICATIONS: intubation TECHNIQUE: One view of the chest was acquired. COMPARISON: [facility], , XR CHEST 1V, 03/10/2022, 15:23. FINDINGS: Surgical changes and devices: Tubes and catheters are in stable in expected positions. Lungs and pleura: Mild patchy bilateral mid and lower lung airspace opacities are present, as before. No pleural effusions or pneumothorax. Mediastinum: Mediastinal contours appear normal. Heart size is normal. Bones and chest wall: No suspicious bony lesions. Overlying soft tissues appear unremarkable. IMPRESSION: No change in bilateral pneumonia. Dictated by: Candice Perez M.D. on 03/11/2022 at 10:20 Approved by: Candice Perez M.D. on 03/11/2022 at 10:21
[2022-03-11 04:14] LABS: Fractionated Inspired Oxygen 35; HCO3 ABG 24 mmol/L (22-26); Oxygen Saturation ABG 95 % (95-100); PCO2 ABG 36.5 mmHg (35-45); PO2 ABG 73 mmHg (80-100); TCO2 ABG 25 mmol/L (21-31); pH ABG 7.43 (7.35-7.45)
[2022-03-11] MEDS: PIPERACILLIN/TAZO 3.375 GM in SODIUM CHLORIDE 0.9% 100 ML IV ×3 (05:30→20:58)
[2022-03-11] MEDS: fentaNYL 1,000 MCG in DEXTROSE 5% IN WATER 230 ML 17.375 MCG IV (06:33)
[2022-03-11 07:15] LABS: Add Manual Diff / Slide Review NO; Basophils Absolute Auto 0 /uL (0-100); Basophils Percent Auto 0.4 % (0-2); Eosinophils Absolute Auto 100 /uL (0-450); Eosinophils Percent Auto 0.5 % (2-4); Hematocrit 32.2 % (41-53); Hemoglobin 11.3 g/dL (13.5-17.5); Lymphocytes Absolute Auto 1000 /uL (1100-4500); Lymphocytes Percent Auto 8.3 % (25-40); Mean Corpuscular HGB Conc 35.1 % (30-36); Mean Corpuscular Hemoglobin 36.2 PG (26-34); Mean Corpuscular Volume 103.1 fL (80-100); Monocytes Absolute Auto 900 /uL (0-900); Monocytes Percent Auto 7.9 % (3-14); Neutrophils Absolute Auto 9600 /uL (1500-7000); Neutrophils Percent Auto 82.9 % (50-75); Platelet Count 71 X10^3/uL (150-400); Red Blood Cell Count 3.13 X10^6/uL (4.5-5.9); Red Cell Distribution Width 13.4 % (11.6-14.8); White Blood Cell Count 11.6 X10^3/uL (4.5-11.0)
[2022-03-11 07:27] LABS: BUN Creatinine Ratio 7.8 (6-22); Blood Urea Nitrogen 4 mg/dL (9-20); Calcium 7.5 mg/dL (8.4-10.2); Carbon Dioxide 26 mmol/L (22-32); Chloride 102 mmol/L (98-107); Estimated Glomerular Filt Rate > 60 mL/min (>60); Glucose 188 mg/dL (80-110); Magnesium 1.7 mg/dL (1.6-2.3); Potassium 5.3 mmol/L (3.4-5.1); Sodium 128 mmol/L (137-145)
[2022-03-11 07:28] LABS: HEMOLYSIS 131 (0-50)
[2022-03-11] MEDS: VANCOMYCIN 1,500 MG/300 ML PIGGYBACK 200 MG IV (08:51)
[2022-03-11] MEDS: PANTOPRAZOLE 40 MG VIAL IV (08:54)
[2022-03-11] MEDS: VANCOMYCIN 1,000 MG/200 ML PIGGYBACK 200 MG IV ×2 (09:00→17:25)
--- NOTE | 2022-03-11 09:13 | DIET.CONS2 ---
Dietary Inpatient Consultation Note Admission Date: 03/08/2022 19:42 Pt NPO on ventilator secondary to etoh withdrawl c DTs. RD spoke c ICU nurses, planning abd CT secondary to possible ileus and SBT this morning. RD to check in on need for nutrition support, supportive nutrition therapy late afternoon after POC more clear. Diet: 03/08/22 21:00 NPO Diet Diet Modifications: NPO Type: NPO except for Meds Electronically Signed by: Anne-Marie Jaimes 03/11/22 09:13 Clinical Dietitian [address] [id number]
--- NOTE | 2022-03-11 09:37 | DI.RAD.S_ITS ---
PROCEDURE: XR ABDOMEN 1V INDICATIONS: abd distension TECHNIQUE: One view of the abdomen acquired. COMPARISON: [facility], CR, XR ABDOMEN 1V, 03/10/2022, 8:03. FINDINGS: Surgical changes and devices: None. Bowel: Bowel gas pattern is normal. Soft tissues: No suspicious abdominal calcifications. Visualized solid organ contours appear normal in size. Bones: No suspicious bony lesions. IMPRESSION: Unremarkable abdominal radiograph Approved by: Eric Ordaz M.D. on 03/11/2022 at 9:18
--- NOTE | 2022-03-11 10:10 | DI.CT.S_ITS ---
PROCEDURE: CT ABDOMEN PELVIS WO CON INDICATIONS: possible bowel obstruction TECHNIQUE: Axial sections were acquired from the lung bases to the pubic symphysis. Coronal and sagittal reformats were performed. For radiation dose reduction, the following was used: automated exposure control, adjustment of mA and/or kV according to patient size. COMPARISON: [facility], US, US ABDOMEN COMPLETE, 03/08/2022, 20:43. [facility], CT, CT ABDOMEN PELVIS W CON, 09/01/2019, 8:31. [facility], CR, XR ABDOMEN 1V, 03/11/2022, 9:47. [facility], CR, XR CHEST 1V, 03/11/2022, 6:25. FINDINGS: Image quality: Excellent. Lung bases: Bibasilar consolidation and/or atelectasis. Heart: Heart size is mildly increased. There is a NG tube in the distal esophagus. ABDOMEN: Liver: Unremarkable. Gallbladder: Probable small gallstones or gallbladder sludge. Gallbladder is mildly distended. No gallbladder wall thickening or pericholecystic fluid. Biliary ducts: Unremarkable. Pancreas: Mild edema around the pancreas. Spleen: Unremarkable. Adrenal Glands: Bilateral adrenal thickening. No discrete adrenal masses. Kidneys: No renal stones or hydronephrosis. Mild perinephric stranding bilaterally. Stomach and Bowel: There is a NG tube in stomach. Stomach, small bowel loops, and colon are normal in caliber. Diverticulosis without diverticulitis. Peritoneum: Trace amount of free intraperitoneal fluid. No free air. Ventral Wall: No hernia. Abdominal Nodes: No enlarged retroperitoneal or mesenteric lymph nodes. Vessels: Aorta and inferior vena cava are normal in size. Mild atherosclerosis. PELVIS: Pelvic Organs: Unremarkable. Pizarro catheter in the urinary bladder. Bladder is contracted. Pelvic Nodes: Unremarkable. Miscellaneous: No inguinal hernias are seen. Bones: Unremarkable. IMPRESSION: 1. No findings to suggest bowel obstruction. 2. Diverticulosis without diverticulitis. 3. Stranding around pancreas suggesting pancreatitis. Please correlate with pancreatic enzymes. 4. Bibasilar consolidations and/or atelectasis. 5. Possible gallstones or gallbladder sludge. Dictated by: Smitha Hinojosa M.D. on 03/11/2022 at 11:34 Approved by: Smitha Hinojosa M.D. on 03/11/2022 at 11:43
--- NOTE | 2022-03-11 10:32 | PM.PN.EICU ---
Subjective Subjective Date Patient Seen: 03/11/22 Interval history: no acute vents overnight. pt following commands Current Medications Current Medications Medications: Home Medications nicotine 21 mg/24 hr daily transdermal patch 21 mg topical BEDTIME #21 ea 09/03/19 [Rx Confirmed 03/08/22] Visit Medications (administered) Generic Name Dose Route Start Last Admin Trade Name Keshav PRN Reason Stop Dose Admin Chlorhexidine Gluconate 15 ml 03/10/22 06:00 03/11/22 05:30 Chlorhexidine Gluconate 15 Ml Cup PO 15 ml Q6HR ELEAZAR Administration Heparin Sodium (Porcine) 50 unit 03/10/22 15:00 03/11/22 08:52 Heparin Flush (Cl/Picc/Mid-Line) 50 Unit/5 Ml Syringe IV 50 unit BID ELEAZAR Administration dexmedeTOMIDine in 0.9 % NaCL 400 mcg in 100 mls @ 3.475 mls/hr 03/09/22 23:30 03/11/22 00:01 Precedex IV 0.4 mcg/kg/hr TITRATE ELEAZAR 6.95 mls/hr Administration Protocol 0.2 MCG/KG/HR Dextrose/Lactated Ringer's 1,000 mls @ 125 mls/hr 03/10/22 03:45 03/11/22 00:36 Dextrose 5%-Lactated Ringers IV 125 mls/hr CONT ELEAZAR Administration Fentanyl 1,000 mcg/ Dextrose 250 mls @ 12.163 mls/hr 03/10/22 03:45 03/11/22 06:33 IV 1 mcg/kg/hr TITRATE ELEAZAR 17.375 mls/hr Administration Protocol 0.7 MCG/KG/HR Propofol 1,000 mg in 100 mls @ 2.085 mls/hr 03/10/22 03:45 03/11/22 02:40 Propofol IV 30 mcg/kg/min TITRATE ELEAZAR 12.51 mls/hr Administration Protocol 5 MCG/KG/MIN Piperacillin Sod/Tazobactam 100 mls @ 25 mls/hr 03/10/22 05:30 03/11/22 05:30 Sod 3.375 gm/ Sodium Chloride IV 25 mls/hr Q8H ELEAZAR Administration NOREPINEPHRINE BITARTRATE/D5W 4 mg in 250 mls @ 30 mls/hr 03/10/22 12:30 03/10/22 12:55 Levophed IV 0 mcg/min TITRATE ELEAZAR 0 mls/hr Titration Protocol 8 MCG/MIN Vancomycin HCl 1,000 mg in 200 mls @ 200 mls/hr 03/11/22 09:00 03/11/22 09:00 Vancomycin IV 200 mls/hr Q8H ELEAZAR Administration Ondansetron HCl 4 mg 03/08/22 20:51 03/10/22 07:14 Ondansetron 4 Mg/2 Ml Inj IV 4 mg Q6HR PRN Administration Nausea And Vomiting Pantoprazole Sodium 40 mg 03/10/22 09:00 03/11/22 08:54 Pantoprazole 40 Mg Vial IV 40 mg DAILY ELEAZAR Administration Objective Ventilator Parameters: Ventilator Settings FiO2 35 RT Vent Frequency 16 Ventilator Tidal Volume 450 Exhaled Positive End Expiratory 5 Pressure Inspiratory Phase Time 1 Patient Position HOB >= 30 degrees Labs Result Diagrams: 03/11/22 06:43 03/11/22 06:43 Labs: Laboratory Results - last 24 hr 03/10/22 03/11/22 03/11/22 11:15 04:00 06:43 WBC 11.6 H RBC 3.13 L Hgb 11.3 L Hct 32.2 L MCV 103.1 H MCH 36.2 H MCHC 35.1 RDW 13.4 Plt Count 71 L Neut % (Auto) 82.9 H Lymph % (Auto) 8.3 L [place] % (Auto) 7.9 Eos % (Auto) 0.5 L Baso % (Auto) 0.4 Neut # (Auto) 9600 H Lymph # (Auto) 1000 L [place] # (Auto) 900 Eos # (Auto) 100 Baso # (Auto) 0 ABG pH 7.48 H 7.43 ABG pCO2 32.4 L 36.5 ABG pO2 72 L 73 L ABG HCO3 24 24 ABG Total CO2 25 25 ABG O2 Saturation 96 95 ABG Base Excess 0.0 0.0 FiO2 35 35 Sodium Potassium Chloride Carbon Dioxide BUN Creatinine Estimated GFR BUN/Creatinine Ratio Glucose Calcium Magnesium 03/11/22 06:43 WBC RBC Hgb Hct MCV MCH MCHC RDW Plt Count Neut % (Auto) Lymph % (Auto) [place] % (Auto) Eos % (Auto) Baso % (Auto) Neut # (Auto) Lymph # (Auto) [place] # (Auto) Eos # (Auto) Baso # (Auto) ABG pH ABG pCO2 ABG pO2 ABG HCO3 ABG Total CO2 ABG O2 Saturation ABG Base Excess FiO2 Sodium 128 L Potassium 5.3 H D Chloride 102 Carbon Dioxide 26 BUN 4 L Creatinine 0.51 L Estimated GFR > 60 BUN/Creatinine Ratio 7.8 Glucose 188 H Calcium 7.5 L Magnesium 1.7 Exam Vital Signs (past 8 hours): - 03/11/22 02:45 03/11/22 03:00 03/11/22 03:00 Temperature Pulse Rate 62 62 Respiratory Rate 16 16 Blood Pressure 104/66 Pulse Oximetry 98 98 Oxygen Delivery Method Oxygen Flow Rate Fraction of Inspired Oxygen 03/11/22 03:15 03/11/22 03:30 03/11/22 03:30 Temperature Pulse Rate 62 61 Respiratory Rate 17 16 Blood Pressure 104/65 Pulse Oximetry 98 98 Oxygen Delivery Method Oxygen Flow Rate Fraction of Inspired Oxygen 03/11/22 03:45 03/11/22 04:00 03/11/22 04:00 Temperature Pulse Rate 60 64 Respiratory Rate 17 16 Blood Pressure 109/68 Pulse Oximetry 98 97 Oxygen Delivery Method Oxygen Flow Rate Fraction of Inspired Oxygen 03/11/22 04:15 03/11/22 04:45 03/11/22 04:30 Temperature 98.4 F Pulse Rate 63 Respiratory Rate 16 Blood Pressure 97/59 L Pulse Oximetry 98 Oxygen Delivery Method Oxygen Flow Rate Fraction of Inspired Oxygen 03/11/22 04:30 03/11/22 05:00 03/11/22 04:45 Temperature Pulse Rate 63 63 Respiratory Rate 16 16 Blood Pressure Pulse Oximetry 97 97 Oxygen Delivery Method Mechanical Ventilation Oxygen Flow Rate Fraction of Inspired Oxygen 03/11/22 05:00 03/11/22 05:02 03/11/22 05:02 Temperature Pulse Rate 62 62 Respiratory Rate 16 16 Blood Pressure 112/67 Pulse Oximetry 97 98 Oxygen Delivery Method Oxygen Flow Rate Fraction of Inspired Oxygen 03/11/22 05:15 03/11/22 05:30 03/11/22 05:30 Temperature Pulse Rate 62 62 Respiratory Rate 17 18 Blood Pressure 125/73 Pulse Oximetry 98 98 Oxygen Delivery Method Oxygen Flow Rate Fraction of Inspired Oxygen 03/11/22 05:45 03/11/22 06:00 03/11/22 06:00 Temperature Pulse Rate 63 63 Respiratory Rate 16 18 Blood Pressure 124/73 Pulse Oximetry 98 98 Oxygen Delivery Method Oxygen Flow Rate Fraction of Inspired Oxygen 03/11/22 06:15 03/11/22 06:30 03/11/22 06:30 Temperature Pulse Rate 62 66 Respiratory Rate 17 21 Blood Pressure 108/66 Pulse Oximetry 98 99 Oxygen Delivery Method Oxygen Flow Rate Fraction of Inspired Oxygen 03/11/22 06:45 03/11/22 07:00 03/11/22 07:00 Temperature Pulse Rate 62 60 Respiratory Rate 16 16 Blood Pressure 113/68 Pulse Oximetry 97 97 Oxygen Delivery Method Oxygen Flow Rate Fraction of Inspired Oxygen 03/11/22 07:30 03/11/22 07:30 03/11/22 08:00 Temperature Pulse Rate 60 Respiratory Rate 16 Blood Pressure 123/72 132/75 Pulse Oximetry 99 Oxygen Delivery Method Oxygen Flow Rate Fraction of Inspired Oxygen 03/11/22 08:00 03/11/22 09:08 03/11/22 08:00 Temperature Pulse Rate 61 62 Respiratory Rate 17 16 Blood Pressure 105/62 Pulse Oximetry 99 99 99 Oxygen Delivery Method Mechanical Ventilation Oxygen Flow Rate 35 Fraction of Inspired Oxygen 35 03/11/22 08:30 03/11/22 08:30 03/11/22 09:00 Temperature Pulse Rate 63 Respiratory Rate 17 Blood Pressure 116/70 105/62 Pulse Oximetry 100 Oxygen Delivery Method Oxygen Flow Rate Fraction of Inspired Oxygen 03/11/22 09:00 03/11/22 09:30 03/11/22 09:30 Temperature Pulse Rate 59 L 62 Respiratory Rate 16 16 Blood Pressure 128/74 Pulse Oximetry 98 99 Oxygen Delivery Method Oxygen Flow Rate Fraction of Inspired Oxygen Fraction of Inspired Oxygen 35 Oxygen Delivery Method Mechanical Ventilation Oxygen Flow Rate 35 Quality TeleICU VTE Deep Vein Thrombosis/Pulmonary Embolism Present on Admission: No Assessment & Plan Assessment & Plan narrative: patient see with bedside nurse and provider chart/labs/imaging reviewed 62 year old male with acute resp failure etoh withdrawal aspiration currently afebrile, HD stable sedated intubated kub nonspecific labs significant for mild leukocytosis hyerkalemia to 5.3 suggest -neurochecks seizure precautions -start librium 50mg tid when able -sedation vacation, can keep precedex on -sah/sbt trial -wean to extubate as tolerated -check cxs, abx -repeat labs, tx K+ if still elevated -continue ivf -npo for now, if ngt output remains high, consider ct ab/pelvis and surgery eval if ok can start feeds as tolerated -replace lytes prn -monitor ins/outs -keep glucose 140-180s -gi/dvt ppx -please call eICU if condition changes Time Spent With Patient Critical Care time: I spent a total of [] minutes of critical care time on this patient's care today; this time is exclusive of procedural time.
[2022-03-11] MEDS: MAGNESIUM SULFATE 2 GM/50 ML PIGGYBACK IV (10:45)
[2022-03-11] MEDS: propofoL 1,000 MG/100 ML VIAL 14.595 MG IV (12:00)
--- NOTE | 2022-03-11 12:30 | P.PN_ITS ---
Subjective Subjective Date Patient Seen: 03/11/22 Interval history: Stable overnight, no acute events. Follows commands this morning. Remains intubated. Unable to complete further subjective portion. XR this AM with improvement in distension, still looked slightly abnormal to me so CT performed which showed no evidence of obstruction. Now will trial sedation vacation, possible extubation today or tomorrow. Exam Vital Signs (past 8 hours): - 03/11/22 04:45 03/11/22 05:00 03/11/22 04:45 Temperature 98.4 F Pulse Rate 63 Respiratory Rate 16 Blood Pressure Pulse Oximetry 97 Oxygen Delivery Method Mechanical Ventilation Oxygen Flow Rate Fraction of Inspired Oxygen 03/11/22 05:00 03/11/22 05:02 03/11/22 05:02 Temperature Pulse Rate 62 62 Respiratory Rate 16 16 Blood Pressure 112/67 Pulse Oximetry 97 98 Oxygen Delivery Method Oxygen Flow Rate Fraction of Inspired Oxygen 03/11/22 05:15 03/11/22 05:30 03/11/22 05:30 Temperature Pulse Rate 62 62 Respiratory Rate 17 18 Blood Pressure 125/73 Pulse Oximetry 98 98 Oxygen Delivery Method Oxygen Flow Rate Fraction of Inspired Oxygen 03/11/22 05:45 03/11/22 06:00 03/11/22 06:00 Temperature Pulse Rate 63 63 Respiratory Rate 16 18 Blood Pressure 124/73 Pulse Oximetry 98 98 Oxygen Delivery Method Oxygen Flow Rate Fraction of Inspired Oxygen 03/11/22 06:15 03/11/22 06:30 03/11/22 06:30 Temperature Pulse Rate 62 66 Respiratory Rate 17 21 Blood Pressure 108/66 Pulse Oximetry 98 99 Oxygen Delivery Method Oxygen Flow Rate Fraction of Inspired Oxygen 03/11/22 06:45 03/11/22 07:00 03/11/22 07:00 Temperature Pulse Rate 62 60 Respiratory Rate 16 16 Blood Pressure 113/68 Pulse Oximetry 97 97 Oxygen Delivery Method Oxygen Flow Rate Fraction of Inspired Oxygen 03/11/22 07:30 03/11/22 07:30 03/11/22 08:00 Temperature Pulse Rate 60 Respiratory Rate 16 Blood Pressure 123/72 132/75 Pulse Oximetry 99 Oxygen Delivery Method Oxygen Flow Rate Fraction of Inspired Oxygen 03/11/22 08:00 03/11/22 09:08 03/11/22 08:00 Temperature Pulse Rate 61 62 Respiratory Rate 17 16 Blood Pressure 105/62 Pulse Oximetry 99 99 99 Oxygen Delivery Method Mechanical Ventilation Oxygen Flow Rate 35 Fraction of Inspired Oxygen 35 03/11/22 08:30 03/11/22 08:30 03/11/22 09:00 Temperature Pulse Rate 63 Respiratory Rate 17 Blood Pressure 116/70 105/62 Pulse Oximetry 100 Oxygen Delivery Method Oxygen Flow Rate Fraction of Inspired Oxygen 03/11/22 09:00 03/11/22 09:30 03/11/22 09:30 Temperature Pulse Rate 59 L 62 Respiratory Rate 16 16 Blood Pressure 128/74 Pulse Oximetry 98 99 Oxygen Delivery Method Oxygen Flow Rate Fraction of Inspired Oxygen 03/11/22 10:00 03/11/22 10:00 03/11/22 10:07 Temperature Pulse Rate 58 L 59 L Respiratory Rate 16 16 Blood Pressure 118/71 Pulse Oximetry 98 99 Oxygen Delivery Method Oxygen Flow Rate Fraction of Inspired Oxygen 03/11/22 10:07 03/11/22 10:30 03/11/22 10:30 Temperature Pulse Rate 57 L Respiratory Rate 16 Blood Pressure 120/76 111/68 Pulse Oximetry 99 Oxygen Delivery Method Oxygen Flow Rate Fraction of Inspired Oxygen Fraction of Inspired Oxygen 35 Oxygen Delivery Method Mechanical Ventilation Oxygen Flow Rate 35 Narrative Exam Narrative: General:?ill appearing male, intubated and sedated, no distress. HEENT:? Normocephalic, atraumatic. MMM. OG tube and ETT in place. Neck: supple and symmetric, trachea is midline, no cervical adenopathy. Chest:? Normal AP diameter and contour without kyphoscoliosis, equal chest rise bilaterally. Lungs:? coarse rhonchi bilaterally. Cardio:?RRR no m/r/g. Abdomen: Soft, nondistended Musculoskeletal:?no deformity. Extremities: No edema or joint effusions. No cyanosis or clubbing. Skin:? Pale,? Warm to touch,dry and intact without rashes, ulcerations or petechiae.? Neuro:? Sedated, reportedly moving all extremities shortly after intubation Psych:? Unable to assess Objective Labs Result Diagrams: 03/11/22 06:43 03/11/22 06:43 Labs: Laboratory Results - last 24 hr 03/11/22 03/11/22 03/11/22 04:00 06:43 06:43 WBC 11.6 H RBC 3.13 L Hgb 11.3 L Hct 32.2 L MCV 103.1 H MCH 36.2 H MCHC 35.1 RDW 13.4 Plt Count 71 L Neut % (Auto) 82.9 H Lymph % (Auto) 8.3 L [place] % (Auto) 7.9 Eos % (Auto) 0.5 L Baso % (Auto) 0.4 Neut # (Auto) 9600 H Lymph # (Auto) 1000 L [place] # (Auto) 900 Eos # (Auto) 100 Baso # (Auto) 0 ABG pH 7.43 ABG pCO2 36.5 ABG pO2 73 L ABG HCO3 24 ABG Total CO2 25 ABG O2 Saturation 95 ABG Base Excess 0.0 FiO2 35 Sodium 128 L Potassium 5.3 H D Chloride 102 Carbon Dioxide 26 BUN 4 L Creatinine 0.51 L Estimated GFR > 60 BUN/Creatinine Ratio 7.8 Glucose 188 H Calcium 7.5 L Magnesium 1.7 PFSH Medical History Alcohol abuse Alcoholic pancreatitis Amputation finger Back pain Chronic pancreatitis Fracture of finger, distal phalanx, open Fracture of finger, middle phalanx, open Onychomycosis Seizures Surgical History History of surgical amputation of finger Family History Mother Osteoarthritis Father Alcohol abuse Medical history unknown Social History household members: none Smoking Status: Current every day smoker alcohol intake: current substance use type: marijuana Assessment & Plan Assessment & Plan narrative: 1. Acute alcohol withdrawal with delirium tremens - intubated evening of 03/09 for worsening respiratory status and tachypnea in the setting of DTs and probable aspiration. - minimal vent settings currently - continue sedation with fentanyl, precedex, and propofol if does not pass sedation vacation this afternoon. - will see if he can be extubated today. - patient does have history of prior DTs and acute liver failure from EtOH. 2. Acute pancreatitis - restart CLD if extubated, will avoid tube feeds at this time given pancreatitis. Will consider tomorrow if he remains intubated. 3. Acute respiratory failure with hypoxia secondary to aspiration pneumonia and septic shock - needed small amounts of levophed for hypotension yesterday, possibly in setting of sedation but given respiratory failure as well will manage as septic shock - wean from levophed as able, currently off. - continue zosyn, follow up cultures. 4. Probable ileus - CT scan without evidence of obstruction today. Can advance diet as tolerated once extubated. Consider feeds tomorrow if he remains intubated. 5. Nicotine dependence - Will continue nicotine patch 6. Thrombocytopenia - probably from EtOH, also possible sepsis. Will continue to monitor. No active bleeding that is obvious and transfuse only if necessary. DVT prophylaxis * The patient is somewhat thrombocytopenic, will continue SCDs, will defer Lovenox at this time as these continue to decline slightly I spent 30 minutes providing critical care management this patient. This excludes time spent in performing separately billed procedures. Time Spent With Patient Critical Care time: I spent a total of [] minutes of critical care time on this patient's care today; this time is exclusive of procedural time. Quality VTE Deep Vein Thrombosis/Pulmonary Embolism Present on Admission: No
--- NOTE | 2022-03-11 13:00 | PC.NURSE ---
Addendum entered by Duyen Chan R.N. 03/11/22 16:45: assisted pt to chair per his request- tolerating clear liquid diet and able to hold drink himself- precedex continues as well as ivf at 125cc/h [place] remains patent and chair alarm placed for safety. Addendum entered by Duyen Chan R.N. 03/11/22 14:20: pt on a sedation-vacation and spontaneous breathing trial and waking up calmly -- instructed repeatedly and stood by pt - pt able to extubate himself with ett balloon inflated as well as bilat wrist soft restraints but he was able to extubate self mostly-coughing alot of mucous production Original Note: PT INTUBATED AND SEDATED THIS AM , DRESSING CHANGED TO PICC LINE RITO AND COMPLETELY BATHED WELL TRANSPORTED TO CT FOR ABD. PT REMAINS SEDATED WITH PROPOFOL, PRECIDEX, AND FENTANYL WELL IVF AND ABX THERAPY- REPLACED MAGNESIUM THIS AM WITH 2GM RIDER. VSS AWAITING RT TO ATTEMPT SBT THIS AFTERNOON
--- NOTE | 2022-03-11 13:22 | CM.DPC ---
Addendum entered by STEFFEN Preciado 03/11/22 15:34: ADD: Per RN, pt was on sedation vacation and extubated himself and still somewhat groggy and will begin slowly advancing diet and eventually ambulate. SW met bedside with pt and explained role and pt is alert and somewhat oriented but remains groggy but sitting up in bed. Pt confirms he lives in [place] alone but has supportive local friend who checks on him and his mother lives in [facility] and he thinks mother likely would transport him home at d/c. Pt denies any hx of HH or SNF and declines SW support with LIZ/ETOH tx resources at d/c and declines the need for HH. Pt preference is to d/c home tonight but aware he may not be medically stable until tomorrow. Pt requests assist with getting his mother on the phone and SW called mother and briefly updated and transferred call into room and confirmed pt could answer. Plan: SW to follow for likely pt d/c home when medically stable via mother POV and any further identified needs. BF Original Note: DCP Cont: Per MD, pt seems more responsive today and over the weekend pt was intubated and then pt accidentally pulled out his bubble/vent and RT had to reintubate Sun 03.10.22. Per RN and MD, will trial sedation vacation towards possible attempt at extubation today or tomorrow pending progress. Pt has hx of multiple Inpt LIZ tx facilities with limited periods of sobriety. Plan: SW to follow closely for extubation towards determining pt's strength and needs towards confirming safe d/c home with supportive mother and any further identified discharge planning needs. Outpt LIZ tx resources to be provided at discharge. STEFFEN Preciado
--- NOTE | 2022-03-11 14:08 | RT ---
At approx 1400 patient self extubated. Patient was on a SBT awake and oriented. Patient's arms were restrained but according to RN patient was able to scoot down in the bed and was able to grab the the ETT and pull it out. Patient has no complaints of shortness of breath as this time and no complaints of any px in the throat. Patients vital signs are stable and spoke with RN about putting a nasal cannula on if saturations start to drop. Will be monitoring patient closely for any decline.
[2022-03-11] MEDS: NICOTINE 21 MG PATCH TOP (20:57)
[2022-03-11] MEDS: TRAMADOL 50 MG TABLET PO (20:58)
[2022-03-11] MEDS: HYDROMORPHONE 0.5 MG INJ IV (22:32)
[2022-03-12] VITALS (11 sets, daily range): BP systolic 113–171; BP diastolic 61–92; PULSE 66–88; RESP 18–22; TEMP 36.1–37.1; O2SAT 94–99
[2022-03-12] MEDS: VANCOMYCIN 1,000 MG/200 ML PIGGYBACK 200 MG IV (01:06)
[2022-03-12] MEDS: HYDROMORPHONE 0.5 MG INJ IV ×2 (02:25→05:52)
--- NOTE | 2022-03-12 03:45 | DI.RAD.S_ITS ---
PROCEDURE: XR CHEST 1V INDICATIONS: intubation TECHNIQUE: One view of the chest was acquired. COMPARISON: [facility], CR, XR CHEST 1V, 03/11/2022, 6:25. FINDINGS: Surgical changes and devices: Tip of PICC line projects over the distal SVC via right-sided approach. Lungs and pleura: Lungs are clear. No pleural effusions or pneumothorax. Mediastinum: Mediastinal contours appear normal. Heart size is normal. Bones and chest wall: Chronic appearing right rib fractures. No suspicious bony lesions. Overlying soft tissues appear unremarkable. IMPRESSION: No acute cardiopulmonary disease process. Dictated by: Kymberly Del Valle MD, PhD on 03/12/2022 at 12:28 Approved by: Kymberly Del Valle MD, PhD on 03/12/2022 at 12:32
[2022-03-12] MEDS: PIPERACILLIN/TAZO 3.375 GM in SODIUM CHLORIDE 0.9% 100 ML IV ×3 (05:12→20:49)
[2022-03-12] MEDS: DEXTROSE 5%-LACTATED RINGERS 1,000 ML 125 ML IV (05:12)
[2022-03-12 05:41] LABS: Magnesium 1.6 mg/dL (1.6-2.3)
--- NOTE | 2022-03-12 05:43 | PC.NURSE ---
Shift Note: Patient was alert and orientedx4, with episode of abdominal and back pain, prn meds given as ordered. Vital signs are stable and within acceptable limits. O2 sat maintained at >92% at room air. Precedex maintained at 0.4mcg/hr, well tolerated by the patient. Oral intake tolerated. [place] cath in placed with adequate urine output. Will continue to monitor.
[2022-03-12 06:44] LABS: Add Manual Diff / Slide Review NO; Basophils Absolute Auto 100 /uL (0-100); Basophils Percent Auto 0.6 % (0-2); Eosinophils Absolute Auto 100 /uL (0-450); Eosinophils Percent Auto 0.8 % (2-4); Hematocrit 31.1 % (41-53); Lymphocytes Absolute Auto 2000 /uL (1100-4500); Lymphocytes Percent Auto 18.8 % (25-40); Mean Corpuscular HGB Conc 35.5 % (30-36); Mean Corpuscular Hemoglobin 36.5 PG (26-34); Mean Corpuscular Volume 102.9 fL (80-100); Monocytes Absolute Auto 1100 /uL (0-900); Monocytes Percent Auto 10.3 % (3-14); Neutrophils Absolute Auto 7400 /uL (1500-7000); Neutrophils Percent Auto 69.5 % (50-75); Platelet Count 79 X10^3/uL (150-400); Red Blood Cell Count 3.02 X10^6/uL (4.5-5.9); Red Cell Distribution Width 12.6 % (11.6-14.8); White Blood Cell Count 10.7 X10^3/uL (4.5-11.0)
[2022-03-12] MEDS: NICOTINE 21 MG PATCH TOP (10:56)
[2022-03-12] MEDS: THIAMINE 100 MG TABLET PO (10:57)
[2022-03-12] MEDS: chlordiazePOXIDE 25 MG CAPSULE 50 MG PO ×3 (11:01→23:18)
[2022-03-12] MEDS: MAGNESIUM CHLORIDE 64 MG TABLET 128 MG PO (11:56)
--- NOTE | 2022-03-12 12:03 | PT.IIE ---
Current Diagnoses Dehydration (03/08/22) Alcohol abuse, uncomplicated (03/08/22) Alcohol dependence with withdrawal delirium (03/08/22) Alcohol induced acute pancreatitis without necrosis or infection (03/08/22) Other chronic pancreatitis (03/08/22) Acute respiratory distress (03/08/22) Epigastric pain (03/08/22) Nausea with vomiting, unspecified (03/08/22) Surgical History (Last Reviewed 03/10/22 @ 03:11 by Valente Sanford MD) History of surgical amputation of finger Medical History (Last Reviewed 03/10/22 @ 03:15 by Valente Sanford MD) Alcohol abuse Alcoholic pancreatitis Amputation finger Back pain Chronic pancreatitis Fracture of finger, distal phalanx, open Fracture of finger, middle phalanx, open Onychomycosis Seizures Physical Therapy Inpatient Evaluation/Re-Eval M1 PT/OT-IP Prior Functional Status Start: 03/12/22 12:11 Freq: NEEDED Status: Active Protocol: Document 03/12/22 12:03 DLM (Rec: 03/12/22 12:26 DL [id number]) Medical Review Prior Functional Status Medical History Reviewed Yes Diet/Fluid Consistency Regular Communication WNL Mobility and Gait Independent without device, drives, ambulates community distances Activities of Daily Living and IADL's Independent Prior Functional Level (Other details) His Mother is supportive and involved in his care Social History Household Members none Living Arrangements House Number of Floors (Floors) One Floor Number of Stairs To Enter/Railing? 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 Current Condition Start: 03/12/22 12:11 Freq: NEEDED Status: Active Protocol: Document 03/12/22 12:03 DLM (Rec: 03/12/22 12:26 DL [id number]) Physical Therapy Current Condition Current Condition Evaluation Date 03/12/22 Treatment Diagnosis Pancreatitis, impaired gait and mobility Onset Date 03/09/22 M3 PT-IP Subjective Start: 03/12/22 12:11 Freq: NEEDED Status: Active Protocol: Document 03/12/22 12:03 DLM (Rec: 03/12/22 12:26 DL [id number]) Subjective Physical Therapy Visit Type Type Initial Evaluation Visit Start Time 11:30 Visit Stop Time 12:03 Total Visit Minutes 33 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 Patient Goals Discharge home Therapy Pain Assessment Pain When Pain Assessed During Mobility Pain Present Pain Present Pain Reported Location Back Intensity 8 Scale Used Numeric (0 - 10) Description Aching Pain Management Techniques Re-positioning M4 PT-IP Mobility and Gait Start: 03/12/22 12:11 Freq: NEEDED Status: Active Protocol: Document 03/12/22 12:03 DL (Rec: 03/12/22 12:26 DLM [id number]) PT-Bed Mobility Assessment Rolling Type of Rolling Bilateral Level of Assist Independent Supine to Sit Supine to Sit Independent Sit to Supine Sit to Supine Independent Scooting Scooting to Edge of Bed Independent Scooting Up and Down in Bed Independent PT-Transfer Assessment Sit to and From Stand Sit to and from Stand Standby Assistance,Contact Guard Assistance,Use of Upper Extremities Equipment Transfer Assistive Device None,Gait Belt,Front Wheeled Walker Transfers Transfer Destination Bed,Chair Transfer Technique Stand Step Pivot Transfer Ability Level of Assist Contact Guard Assistance,Use of Upper Extremities Comments Mobility Comments Initial gait and mobility started with fWW but pt able to progress off of device this visit. Pt left up in the recliner with chair alarm at the end of this visit with nursing aware . Gait Assessment Gait Gait Assistance Required: Contact Guard Assist Distance (Feet) 150 Assistive Devices Assistive Device None,Gait Belt Gait Deviations General Gait Pattern Ataxic,Wide Based Gait Factors Limiting Gait Function Factors Limiting Gait Function Decreased Activity Tolerance, Pain,Poor Balance Comments Gait Comments Initial gait in his room with fWW due to unsteady gait and left hip pain, he was able to progress to gait without a device, gait in the ardon was performed without a device x 150 feet Stair Climbing Assessment Comments Stair Climbing Comments he has 2-3 steps to enter his home, training not performed this visit due to fatigue and progressive increase in his low back pain with gait PT-Balance Assessment Sitting Balance and Reactions Static Sitting Balance Ability Normal Dynamic Sitting Balance Ability Good Standing Balance and Reactions Static Standing Balance Ability Good Dynamic Standing Balance Ability Fair Comments Other Balance Tests/Deviations/Treatment balance slowly improved with : mobility this visit, encouraged pt to move slowly to manage his balance M5 PT-IP Objective Assessments Start: 03/12/22 12:11 Freq: NEEDED Status: Active Protocol: Document 03/12/22 12:03 DLM (Rec: 03/12/22 12:26 [facility] [id number]) Orientation Orientation/Cognition Level of Alertness Alert Orientation Name,Age,Birthday,Month,Date, Year,Day of Week,Place, Situation Language Function Ability No Deficits Noted Safety Awareness Decreased Safety Awareness Memory Description No Deficits Noted Comments Limited safety awareness today , he agrees to have help when up while hospitalized. He is cooperative and pleasant with therapy. Gross Range of Motion Upper Extremity ROM Assessment Within Functional Limits Lower Extremity ROM Assessment Within Functional Limits Strength Upper Extremity Strength Assessment Within Functional Limits Lower Extremity Strength Assessment Within Functional Limits Hip pain with resisted left hip flexion Coordination Assessment Gross Coordination Gross Coordination Impaired Assessment Finger to Nose Test Moderate Impairment Foot Tapping Test Moderate Impairment Sensation Assessment Sensation Gross Sensation WNL Comments Sensation Comments he denies numbness/tingling Muscle Tone Muscle Tone WNL Yes M6 PT-IP Treatment Start: 03/12/22 12:11 Freq: NEEDED Status: Active Protocol: Document 03/12/22 12:03 DL (Rec: 03/12/22 12:26 [facility] [id number]) Physical Therapy Treatment Education Education Provided Safety M7 PT-IP Assessment and Plan Start: 03/12/22 12:11 Freq: NEEDED Status: Active Protocol: Document 03/12/22 12:03 DL (Rec: 03/12/22 12:26 [facility] [id number]) PT Summary Assessment and Plan Potential Rehabilitation Potential Good Status of Condition at Evaluation Evolving Summary Impairments Pain,Balance,Coordination, Transfers,Gait,Activity Tolerance Assessment Summary Alvin is alert and up to recliner this visit. Mobility and gait initiated with FWW but able to progress him off device this visit. He ambulated in the ardon without a device with mild unsteadiness and fatigued in 150 feet. His back pain increased with gait in the ardon. He shows good effort with physical therapy. His goal is to discharge home when medically stable. Anticipate he will progress enough in 1-2 more days to be safe to return home with support of his Mother. Pt continues to have visual hallucinations today but he is aware they are hallucinations. Will continue to assess if pt will need a cane or FWW for home use as he progresses in therapy. Goals Bed Mobility Goal Independent Transfer Goal Independent Gait Goal Independent Gait Distance 150 feet Other Goals up and down 2-3 steps with SBA without rail Days to Meet Goals 2 Frequency of Treatment Frequency Of Treatment Twice a Day Treatment Plan Physical Therapy Treatment Plan Bed Mobility Training,Transfer Training,Gait Training, Therapeutic Exercise,Balance Retraining,Discharge Planning, Neuromuscular Re-ed, Coordination Retraining Other Recommendations and Next Treatment trial cane and FWW for gait as Focus needed for safe gait for home Precautions Other Precautions ETOH with history of seizures during w/d Recommendations To Nursing Amount of Assist Needed 1 Person Assist Discharge Recommendations PT Discharge Recommendations Home with Assistance Transportation Needs at Discharge Private Vehicle
--- NOTE | 2022-03-12 12:30 | PM.PN.1 ---
Subjective Subjective Date Patient Seen: 03/12/22 Interval history: Patient was doing well after self extubation yesterday, his diet was advanced and he tolerated small breakfast this morning with mild abdominal pain. Later in the morning complained of hallucinations and worsening tremulousness. Restarted on CIWA protocol and initiated librium taper. Exam Vital Signs (past 8 hours): - 03/12/22 05:00 03/12/22 10:23 03/12/22 09:00 Temperature 98.1 F 98.3 F Pulse Rate 66 84 Respiratory Rate 20 19 Blood Pressure 161/88 H 156/85 H Pulse Oximetry 96 97 97 Oxygen Delivery Method Room Air Oxygen Flow Rate 0 0 03/12/22 10:41 Temperature Pulse Rate Respiratory Rate Blood Pressure Pulse Oximetry 97 Oxygen Delivery Method Room Air Oxygen Flow Rate 0 Fraction of Inspired Oxygen 35 Oxygen Delivery Method Room Air Oxygen Flow Rate 0 Narrative Exam Narrative: General:?alert male, no acute distress well appearing. HEENT:? Normocephalic, atraumatic. MMM. Neck: supple and symmetric, trachea is midline, no cervical adenopathy. Chest:? Normal AP diameter and contour without kyphoscoliosis, equal chest rise bilaterally. Lungs:? coarse rhonchi bilaterally, though improved today. Cardio:?RRR no m/r/g. Abdomen: Soft, nondistended Musculoskeletal:?no deformity. Extremities: No edema or joint effusions. No cyanosis or clubbing. Skin:? Pale,? Warm to touch,dry and intact without rashes, ulcerations or petechiae.? Neuro:?Alert, mild tremulousness and tongue fasciculations. Later complained of visual hallucinations Psych:?mildly anxious, hallucinations as noted above, but alert and remained oriented to situation. Objective Labs Result Diagrams: 03/12/22 05:15 03/11/22 06:43 Labs: Laboratory Results - last 24 hr 03/12/22 03/12/22 05:15 05:15 WBC 10.7 RBC 3.02 L Hgb 11.0 L Hct 31.1 L MCV 102.9 H MCH 36.5 H MCHC 35.5 RDW 12.6 Plt Count 79 L Neut % (Auto) 69.5 Lymph % (Auto) 18.8 L [place] % (Auto) 10.3 Eos % (Auto) 0.8 L Baso % (Auto) 0.6 Neut # (Auto) 7400 H Lymph # (Auto) 2000 [place] # (Auto) 1100 H Eos # (Auto) 100 Baso # (Auto) 100 Magnesium 1.6 PFSH Medical History Alcohol abuse Alcoholic pancreatitis Amputation finger Back pain Chronic pancreatitis Fracture of finger, distal phalanx, open Fracture of finger, middle phalanx, open Onychomycosis Seizures Surgical History History of surgical amputation of finger Family History Mother Osteoarthritis Father Alcohol abuse Medical history unknown Social History household members: none Smoking Status: Current every day smoker alcohol intake: current substance use type: marijuana Assessment & Plan Assessment & Plan narrative: 1. Acute alcohol withdrawal with delirium tremens - intubated evening of 03/09 for worsening respiratory status and tachypnea in the setting of DTs and probable aspiration. patient extubated on 03/11 (during sedation vacation and while prepping for extubation he self extubated). - He was doing well after extubation, but 03/12 developed hallucinations again. - started librium taper 03/12, 50 mg q6, adjust as necessary. Continue CIWA protocol. - patient does have history of prior DTs and acute liver failure from EtOH. 2. Acute pancreatitis - diet held during period of intubation. - now advanced to regular diet with tolerable pain. Continue pain relief prn. 3. Acute respiratory failure with hypoxia secondary to aspiration pneumonia and septic shock - needed small amounts of levophed for hypotension while intubated. possibly in setting of sedation but given respiratory failure as well managed as septic shock. - remains off of levophed now. - continue zosyn x 7 days. Vanco discontinued, MRSA screen negative. 4. Probable ileus - CT scan without evidence of obstruction prior to extubation. Now resolved. 5. Nicotine dependence - Will continue nicotine patch 6. Thrombocytopenia - probably from EtOH, also possible sepsis. Will continue to monitor. No active bleeding that is obvious and transfuse only if necessary. DVT prophylaxis The patient is somewhat thrombocytopenic, will continue SCDs, will defer Lovenox at this time. Consider restarting if Plt count again increases tomorrow. Code: Full, surrogate: mother Dispo: remains inpatient, PT evaluations ordered. Suspect discharge home, timing unclear. Time Spent With Patient Critical Care time: I spent a total of [] minutes of critical care time on this patient's care today; this time is exclusive of procedural time. Quality VTE Deep Vein Thrombosis/Pulmonary Embolism Present on Admission: No
--- NOTE | 2022-03-12 13:04 | PT-IP ANOTE ---
Attempted to see pt at 13:04, pt refused therapy due to back pain he states occurred following previous PT treatment. Requesting pain meds, RN notified. Will check on pt tomorrow.
[2022-03-12] MEDS: BENZOCAINE/MENTHOL 1 LOZ PKT 1 EACH PO (13:56)
[2022-03-12] MEDS: TRAMADOL 50 MG TABLET PO (13:57)
[2022-03-12] MEDS: DOCUSATE 100 MG CAPSULE PO (13:57)
[2022-03-12] MEDS: polyethylene glycoL 3350 17 GM POWD.PACK PO (13:57)
[2022-03-12] MEDS: SODIUM CHLORIDE 0.9% FLUSH 10 ML IV ×2 (13:58→20:59)
--- NOTE | 2022-03-12 14:32 | PC.NURSE ---
pt continues with vague c/o withdrawl symptoms- did have some visual hallucinations- scored at a 6 ciwa - started librium and medicated with tramadol for pain no lorazepam given as of yet- urianry catheter removed and pt has voided, worked with PT, OT deferred until am - started bowel meds as well, remain sinus rhythm in the 80's and does c/o chronic back pain he call it his pancreas pain as well as buttock discomfort- blanchable redness noted encourage to turn freq while in bed as off loading tips - he reports understanding
--- NOTE | 2022-03-12 14:54 | DIET.CONS2 ---
Dietary Inpatient Consultation Note Admission Date: 03/08/2022 19:42 Pt initially referred to nutrition for NPO on vent status. Pt extubated yesterday and tolerating low fat diet with POs at lunch today 100%. No nutrition dx at this time. Please reconsult nutrition prn. Diet: 03/12/22 Breakfast Low/restricted Fat Diet Diet Modifications: Dietary Fat allowed: 25 grams (pancreatitis) Nutrition Percent Meal Consumed 100% 03/12/22 13:00 Percent Meal Consumed 50% 03/12/22 08:59 Percent Meal Consumed 75% 03/11/22 18:00 Electronically Signed by: Anne-Marie Jaimes 03/12/22 14:54 Clinical Dietitian [address] [address]
[2022-03-12] MEDS: SENNOSIDES 8.6 MG TABLET PO (20:50)
[2022-03-13] VITALS (10 sets, daily range): BP systolic 102–157; BP diastolic 70–79; PULSE 45–83; RESP 16–22; TEMP 35.7–37.1; O2SAT 93–100
--- NOTE | 2022-03-13 04:44 | PC.NURSE ---
Addendum entered by Christofer Riley R.N. 03/13/22 06:46: Patient has episodes of V-tach and PVCs, notified Dr Whitley and also relayed K and Mg level, ordered 2gm of MgSO4. Will continue to monitor. Original Note: 444 Patient had v-tac of 18 beats HR - 154 but flipped back to sinus rhythm with occassional PVCs, asymptomatic, denies any pain/discomfort, notified Dr Whitley, no new orders given, will draw his morning labs including magnesium. Will continue to monitor.
[2022-03-13 05:13] LABS: Add Manual Diff / Slide Review NO; Basophils Absolute Auto 100 /uL (0-100); Basophils Percent Auto 1.3 % (0-2); Eosinophils Absolute Auto 100 /uL (0-450); Eosinophils Percent Auto 0.5 % (2-4); Hematocrit 38.9 % (41-53); Hemoglobin 13.9 g/dL (13.5-17.5); Lymphocytes Absolute Auto 1900 /uL (1100-4500); Mean Corpuscular HGB Conc 35.8 % (30-36); Mean Corpuscular Hemoglobin 36.5 PG (26-34); Monocytes Absolute Auto 1500 /uL (0-900); Monocytes Percent Auto 14.3 % (3-14); Neutrophils Absolute Auto 6600 /uL (1500-7000); Neutrophils Percent Auto 64.9 % (50-75); Platelet Count 129 X10^3/uL (150-400); Red Blood Cell Count 3.82 X10^6/uL (4.5-5.9); Red Cell Distribution Width 12.9 % (11.6-14.8); White Blood Cell Count 10.1 X10^3/uL (4.5-11.0)
[2022-03-13] MEDS: PIPERACILLIN/TAZO 3.375 GM in SODIUM CHLORIDE 0.9% 100 ML IV ×3 (05:15→20:33)
[2022-03-13] MEDS: chlordiazePOXIDE 25 MG CAPSULE 50 MG PO (05:16)
[2022-03-13 05:27] LABS: Magnesium 1.6 mg/dL (1.6-2.3)
[2022-03-13] MEDS: MAGNESIUM SULFATE 2 GM/50 ML PIGGYBACK IV (06:37)
[2022-03-13 07:09] LABS: Calcium 8.9 mg/dL (8.4-10.2); Carbon Dioxide 31 mmol/L (22-32); Chloride 93 mmol/L (98-107); Estimated Glomerular Filt Rate > 60 mL/min (>60); Glucose 163 mg/dL (80-110); HEMOLYSIS < 15 (0-50); Potassium 2.9 mmol/L (3.4-5.1); Sodium 134 mmol/L (137-145)
[2022-03-13 07:36] LABS: BUN Creatinine Ratio 3.6 (6-22); Blood Urea Nitrogen 2 mg/dL (9-20)
[2022-03-13] MEDS: POTASSIUM CHLORIDE 20 MEQ TAB 40 MEQ PO ×3 (09:02→14:34)
[2022-03-13] MEDS: MULTIVITAMIN 1 TABLET 1 TAB PO (09:03)
[2022-03-13] MEDS: NICOTINE 21 MG PATCH TOP (09:03)
[2022-03-13] MEDS: THIAMINE 100 MG TABLET PO (09:03)
[2022-03-13] MEDS: FOLIC ACID 1 MG TABLET PO (09:03)
[2022-03-13] MEDS: SODIUM CHLORIDE 0.9% FLUSH 10 ML IV ×2 (09:04→20:33)
--- NOTE | 2022-03-13 10:20 | PT-IP ANOTE ---
Attempted to see pt at 10:20, per RN hold for ~1 hour, pt pending EKG.
--- NOTE | 2022-03-13 10:30 | PC.NURSE ---
Addendum entered by Zach Edmonds R.N. 03/13/22 14:28: Updated hospitalist regarding HR/rhythm. Post metoprolol, pt's resting HR 60s-70s but still with frequent SVT. Pt is requesting to get OOB and go for a walk. Hospitalist states ok for pt to ambulate as long as he is not having symptoms. Addendum entered by Zach Edmonds R.N. 03/13/22 12:59: Spoke with hospitalist who states ok to give noon dose of librium. Orders received for metoprolol as well. Addendum entered by Zach Edmonds R.N. 03/13/22 12:24: Pt continues with intermittent tachy arrhythmias on tele. Denies symptoms. BP WNL. Obtained EKGs of rhythms and reviewed with Dr. Jefferson. Instruction received to hold noon dose of librium. Hospitalist is waiting on cardiology consult. Original Note: [id number] Notified by BLANKING PRESS OPERATOR of HR 150s-170s on tele. Checked on pt who is resting comfortably in bed watching TV. BP 102/73 HR 160 RR 18 SPO2 99% RA. Pt denies feeling shortness of breath, dyspnea, dizziness/lightheadedness, chest pain, pressure, palpitations or impending doom. Reviewed tele strip noting SVT sustained. Called to hospitalist and reported findings orders received for EKG. Notified RT of stat order for EKG. Pt noted to be in SR with frequent PVCs and runs of SVT/Vtach after about 5 minutes. Received orders from hospitalist for PO Mg and K+ and to hold on PT for at least 1 hour. Reviewed previously given doses of K+ and Mg+ from this AM. No new orders at this time.
[2022-03-13] MEDS: MAGNESIUM CHLORIDE 64 MG TABLET 128 MG PO (10:42)
--- NOTE | 2022-03-13 12:49 | DIET.CONS2 ---
Dietary Inpatient Consultation Note Admission Date: 03/08/2022 19:42 Pt continuing withdrawing, tolerating low fat diet, however, poor POs last evening and this am. Unit host to visit pt prior to meals to help with finding items that sound good to pt. Following POs. Will initiate ONS if POs continue to be <50% today. Diet: 03/12/22 Breakfast Low/restricted Fat Diet Diet Modifications: Dietary Fat allowed: 25 grams (pancreatitis) Nutrition Percent Meal Consumed 10 03/13/22 09:59 Percent Meal Consumed 25% 03/12/22 18:15 Percent Meal Consumed 100% 03/12/22 13:00 Percent Meal Consumed 50% 03/12/22 08:59 Percent Meal Consumed 75% 03/11/22 18:00 Electronically Signed by: Anne-Marie Jaimes 03/13/22 12:49 Clinical Dietitian [address] [address]
[2022-03-13] MEDS: METOPROLOL IR 25 MG TABLET PO ×3 (13:01→23:39)
[2022-03-13] MEDS: chlordiazePOXIDE 25 MG CAPSULE PO ×3 (13:01→23:39)
--- NOTE | 2022-03-13 13:08 | P.PN_ITS ---
Subjective Subjective Date Patient Seen: 03/13/22 Interval history: Patient was feeling well this morning. Continues to feel well, but remains on librium taper, developed intermittent but frequent runs of SVT. He was asymptomatic. Called cardiology for further assistance, they recommended beta camille therapy at this time. Will make sure to keep K>4 and Mg >2. Will check lytes tonight. Exam Vital Signs (past 8 hours): - 03/13/22 08:00 03/13/22 09:00 03/13/22 11:45 Temperature 98.7 F 96.3 F L Pulse Rate 83 45 L Respiratory Rate 16 21 Blood Pressure 127/70 102/73 Pulse Oximetry 97 96 Oxygen Delivery Method Room Air Oxygen Flow Rate 0 0 03/13/22 10:30 Temperature Pulse Rate 60 Respiratory Rate Blood Pressure Pulse Oximetry 97 Oxygen Delivery Method Room Air Oxygen Flow Rate Fraction of Inspired Oxygen 35 Oxygen Delivery Method Room Air Oxygen Flow Rate 0 Narrative Exam Narrative: General:?alert male, no acute distress well appearing. HEENT:? Normocephalic, atraumatic. MMM. Neck: supple and symmetric, trachea is midline, no cervical adenopathy. Chest:? Normal AP diameter and contour without kyphoscoliosis, equal chest rise bilaterally. Lungs:? coarse rhonchi bilaterally, though improved today. Cardio:?RRR no m/r/g. Abdomen: Soft, nondistended Musculoskeletal:?no deformity. Extremities: No edema or joint effusions. No cyanosis or clubbing. Skin:? Pale,? Warm to touch,dry and intact without rashes, ulcerations or petec hiae.? Neuro:?Alert, mild tremulousness and tongue fasciculations. Later complained of visual hallucinations Psych:?mildly anxious, but alert and oriented. Objective Labs Result Diagrams: 03/13/22 04:55 03/13/22 04:55 Labs: Laboratory Results - last 24 hr 03/13/22 03/13/22 03/13/22 04:55 04:55 04:55 WBC 10.1 RBC 3.82 L Hgb 13.9 Hct 38.9 L MCV 102.0 H MCH 36.5 H MCHC 35.8 RDW 12.9 Plt Count 129 L Neut % (Auto) 64.9 Lymph % (Auto) 19.0 L [place] % (Auto) 14.3 H Eos % (Auto) 0.5 L Baso % (Auto) 1.3 Neut # (Auto) 6600 Lymph # (Auto) 1900 [place] # (Auto) 1500 H Eos # (Auto) 100 Baso # (Auto) 100 Sodium 134 L Potassium 2.9 L D Chloride 93 L Carbon Dioxide 31 BUN 2 L Creatinine 0.55 L Estimated GFR > 60 BUN/Creatinine Ratio 3.6 L Glucose 163 H Calcium 8.9 Magnesium 1.6 PFSH Medical History Alcohol abuse Alcoholic pancreatitis Amputation finger Back pain Chronic pancreatitis Fracture of finger, distal phalanx, open Fracture of finger, middle phalanx, open Onychomycosis Seizures Surgical History History of surgical amputation of finger Family History Mother Osteoarthritis Father Alcohol abuse Medical history unknown Social History household members: none Smoking Status: Current every day smoker alcohol intake: current substance use type: marijuana Assessment & Plan Assessment & Plan narrative: 1. Acute alcohol withdrawal with delirium tremens - intubated evening of 03/09 for worsening respiratory status and tachypnea in the setting of DTs and probable aspiration. patient extubated on 03/11 (during sedation vacation and while prepping for extubation he self extubated). - He was doing well after extubation, but 03/12 developed hallucinations again. - started librium taper 03/12, 50 mg q6, adjust as necessary. Continue CIWA protocol. - patient does have history of prior DTs and acute liver failure from EtOH. 2. Acute pancreatitis - diet held during period of intubation. - now advanced to regular diet with tolerable pain. Continue pain relief prn. 3. Acute respiratory failure with hypoxia secondary to aspiration pneumonia and septic shock - needed small amounts of levophed for hypotension while intubated. possibly in setting of sedation but given respiratory failure as well managed as septic shock. - remains off of levophed now. - continue zosyn x 7 days. Vanco discontinued, MRSA screen negative. 4. Probable ileus, resolved - CT scan without evidence of obstruction prior to extubation. Now resolved. 5. Nicotine dependence - Will continue nicotine patch 6. Thrombocytopenia - probably from EtOH, also possible sepsis. Will continue to monitor. No active bleeding that is obvious and transfuse only if necessary. 7. SVT with prolonged QT - patient with large burden of SVT today. He remains asymptomatic. Discussed with cardiology, recommended beta camille therapy at this time. - started metoprolol IR 25 mg q6 - keep K>4, Mg >2. Repleted x2 today thus far. - void QT prolonging agents. Qtc between 470-600 on EKGs today. DVT prophylaxis * The patient is somewhat thrombocytopenic, will continue SCDs, will defer Lovenox at this time. Consider restarting if Plt count again increases tomorrow. Code: Full, surrogate: mother Dispo: remains inpatient, PT evaluations ordered. Suspect discharge home, timing unclear. Time Spent With Patient Critical Care time: I spent a total of [] minutes of critical care time on this patient's care today; this time is exclusive of procedural time. Quality VTE Deep Vein Thrombosis/Pulmonary Embolism Present on Admission: No
--- NOTE | 2022-03-13 13:13 | PT-IP ANOTE ---
Per RN, pt not appropriate to be seen right now because his HR is too high. Will check back tomorrow.
--- NOTE | 2022-03-13 14:33 | CM.DPC ---
DCP Cont: Per MD, pt making medical progress but seems to have started developing some withdrawal symptoms and started on Librium taper from visual hallucinations and to continue to monitor today to determine home this evening vs remain in the hospital. Per PT, recommending home with assist. But on hold today due to bp issues and orthostatics. Per RN, pt somewhat tachy still with CIWA around 6. Plan: SW to follow for medical progress towards plan of d/c to home via mother POV and any further identified discharge planning needs. Pt has been declining any ETOH/LIZ resources at this time. STEFFEN Preciado
[2022-03-13] MEDS: BENZOCAINE/MENTHOL 1 LOZ PKT 1 EACH PO (14:34)
[2022-03-13 19:42] LABS: HEMOLYSIS 16 (0-50); Potassium 3.4 mmol/L (3.4-5.1)
[2022-03-13] MEDS: POTASSIUM CHLORIDE 20 MEQ/15 ML UDC 40 MEQ PO (21:15)
[2022-03-14] VITALS: BP 147/85; PULSE 72; RESP 18; TEMP 36.4; O2SAT 99
[2022-03-14 04:00] VITALS: BP 147/80; PULSE 65; RESP 17; TEMP 36.7; O2SAT 93
[2022-03-14] MEDS: PIPERACILLIN/TAZO 3.375 GM in SODIUM CHLORIDE 0.9% 100 ML IV (05:25)
[2022-03-14] MEDS: chlordiazePOXIDE 25 MG CAPSULE PO (05:25)
[2022-03-14] MEDS: METOPROLOL IR 25 MG TABLET PO (05:25)
[2022-03-14 05:43] LABS: Add Manual Diff / Slide Review NO; Basophils Absolute Auto 100 /uL (0-100); Basophils Percent Auto 1.7 % (0-2); Eosinophils Absolute Auto 200 /uL (0-450); Hematocrit 33.7 % (41-53); Hemoglobin 11.9 g/dL (13.5-17.5); Lymphocytes Absolute Auto 1500 /uL (1100-4500); Lymphocytes Percent Auto 18.9 % (25-40); Mean Corpuscular HGB Conc 35.2 % (30-36); Mean Corpuscular Hemoglobin 36.3 PG (26-34); Mean Corpuscular Volume 103.1 fL (80-100); Monocytes Absolute Auto 1300 /uL (0-900); Monocytes Percent Auto 15.7 % (3-14); Neutrophils Absolute Auto 5000 /uL (1500-7000); Neutrophils Percent Auto 61.7 % (50-75); Platelet Count 166 X10^3/uL (150-400); Red Blood Cell Count 3.27 X10^6/uL (4.5-5.9); White Blood Cell Count 8.1 X10^3/uL (4.5-11.0)
[2022-03-14 08:00] VITALS: BP 127/75; RESP 20; TEMP 36.8; O2SAT 98
[2022-03-14 09:00] VITALS: O2SAT 98
--- NOTE | 2022-03-14 10:21 | PC.NURSE ---
Addendum entered by Vivian Avila R.N. 03/14/22 10:23: Pt refused 0900 meds when RN came in to give them around 0900 today Original Note: Pt was determined to leave AMA around 0900 today. Provider was notified and provider spoke to pt and pt education was given and pt was encouraged to stay and continue with tx's. pt refused and signed AMA form. RN removed Picc line, pt tolerated well and then pt left the hospital with his mother AMA. AMA form in pt folder.
--- NOTE | 2022-03-14 12:00 | PM.DS.1 ---
History of Present Illness History of Present Illness Chief complaint: Pancreatic pain Discharge Providers Provider Date of admission: 03/08/22 19:42 Discharge Date: 03/14/22 Primary care physician: Dom Keller MD Consults: 03/08/22 20:32 Consult to Dietitian, Adult Routine Comment: Reason For Exam: pancreatitis Consult to Poultry Farmer Meat Routine Comment: 03/09/22 23:29 Consult to Respiratory Therapy Evaluate & Treat Comment: HFNC Physician Instructions: Evaluate and treat 03/10/22 03:32 Consult to Dietitian, Adult Routine Comment: Reason For Exam: Patient on Ventilator and NPO 03/10/22 05:05 Consult After Hours PICC Line RN Routine Comment: Double lumen midline 03/12/22 08:07 Consult to Physical Therapy Evaluate & Treat Comment: Physician Instructions: Evaluate and Treat Discharge provider: Jaydon Pierre Summary Hospital Course Hospital Course: This is 62 y/o male with h/o alcohol abuse presented to ER with pancreatic pain/ pancreatitis , he left AMA today prior to my rounding. Please, see all other details in previous progress notes and H@P Exam Vital Signs (past 8 hours): - 03/14/22 08:00 03/14/22 09:00 Temperature 98.2 F Respiratory Rate 20 Blood Pressure 127/75 Pulse Oximetry 98 98 Oxygen Delivery Method Room Air Oxygen Flow Rate 0 Fraction of Inspired Oxygen 35 Oxygen Delivery Method Room Air Oxygen Flow Rate 0 Objective Labs Result Diagrams: 03/14/22 05:30 03/13/22 19:29 Labs: Laboratory Results - last 24 hr 03/13/22 03/14/22 19:29 05:30 WBC 8.1 RBC 3.27 L Hgb 11.9 L Hct 33.7 L MCV 103.1 H MCH 36.3 H MCHC 35.2 RDW 13.0 Plt Count 166 Neut % (Auto) 61.7 Lymph % (Auto) 18.9 L [place] % (Auto) 15.7 H Eos % (Auto) 2.0 Baso % (Auto) 1.7 Neut # (Auto) 5000 Lymph # (Auto) 1500 [place] # (Auto) 1300 H Eos # (Auto) 200 Baso # (Auto) 100 Potassium 3.4 PFSH Medical History Alcohol abuse Alcoholic pancreatitis Amputation finger Back pain Chronic pancreatitis Fracture of finger, distal phalanx, open Fracture of finger, middle phalanx, open Onychomycosis Seizures Surgical History History of surgical amputation of finger Family History Mother Osteoarthritis Father Alcohol abuse Medical history unknown Social History household members: none Smoking Status: Current every day smoker alcohol intake: current substance use type: marijuana Discharge Plan Discharge Plan Patient Disposition: Left Against Medical Advice Discharge orders & Medications Prescriptions: Discontinued nicotine 21 mg/24 hr Patch 24 Hour 21 mg topical BEDTIME Qty: 21 0RF Follow up/Referrals: Dom Keller MD [Primary Care Provider] - Discharge Data Primary Care Provider: Dom Keller Quality VTE Deep Vein Thrombosis/Pulmonary Embolism Present on Admission: No
== END 2022-03-14 09:32 | disposition left against medical advice (07) | DRG 282 ==
LOC: ED 18:29 → AC 20:14 → ICU 23:46 → AC 03-11 14:41 → ICU 03-11 14:41
PROVIDERS: Emergency Medicine; Internal Medicine; Internal Medicine Critical Care Medicine; Admitting Provider Family Medicine; Emergency Provider Emergency Medicine; PCP Student in an Organized Health Care Education/Training Program; Referring Provider Emergency Medicine; Visit Provider Family Medicine
DX: K85.20 Alcohol induced acute pancreatitis without necrosis or infection (principal); J96.00 Acute respiratory failure, unspecified whether with hypoxia or hypercapnia; F10.231 Alcohol dependence with withdrawal delirium; J69.0 Pneumonitis due to inhalation of food and vomit; A41.9 Sepsis, unspecified organism; R65.21 Severe sepsis with septic shock; D69.59 Other secondary thrombocytopenia; K56.7 Ileus, unspecified; I47.1 Supraventricular tachycardia; E86.0 Dehydration; Y90.0 Blood alcohol level of less than 20 mg/100 ml; F17.210 Nicotine dependence, cigarettes, uncomplicated; Z53.29 Procedure and treatment not carried out because of patient's decision for other reasons; Z20.822 Contact with and (suspected) exposure to COVID-19
CPT/HCPCS: 36415; 36600; 71045; 74018; 74176; 76705; 80048; 80053; 80320; 81001; 82805; 82962; 83690; 83735; 84132; 85025; 85610; 87635; 87797; 93005; 93010; 94002; 94003; 94760; 94799; 96361; 96374; 96375; 96376; 97162; 99284; C9803; C9113; J1170; J1630; J1642; J2060; J2405; J2543; J2560; J2704; J3010; J3475; J7121

== ENCOUNTER 2022-12-22 01:26 | Inpatient (IN) | payer OTHER, MEDICAID, SELFPAY ==
[2022-03-08 21:10] VITALS: BMI 23.3
[2022-03-10 16:15] VITALS: RESP 0
[2022-03-11 13:38] VITALS: PULSE 60; RESP 16; O2SAT 100
[2022-12-22] VITALS (91 sets, daily range): BP systolic 83–199; BP diastolic 54–111; PULSE 48–91; RESP 4–46; TEMP 36.7–37.6; O2SAT 94–100; BMI 26.6; BMI 23.8
--- NOTE | 2022-12-22 01:43 | ED.GENADULT ---
HPI - General Adult General Chief complaint: Toxicology Problem Stated complaint: Drug intoxication Time Seen by Provider: 12/22/22 01:35 Source: EMS Mode of arrival: EMS History of Present Illness HPI narrative: 62-year-old gentleman with a long history of alcohol use disorder occasional THC and opiates presents by medics today after reports of an overdose. It is unclear who actually called medics but patient states that he took some fentanyl gave himself Narcan and then called police. He notes that he typically drinks 4 or 5 beers a day but duane had 2 pt of whiskey. He is significantly agitated and combative. He is brought in by medics and escorted to room 13 where he was placed on a mattress on the floor for his safety. He is physically disheveled and not able to fully participate with history or exam. At this time he is protecting his airway. He is appearing to respond to internal stimuli and continuing to pick at mattress himself and staff. Related Data Allergies Allergy/AdvReac Type Severity Reaction Status Date / Time lactase [From [facility]] Allergy Unknown STOMACH Verified 12/22/22 12:22 UPSET Review of Systems Review of Systems ROS Unobtainable: Unobtainable due to mental status/LOC Patient History Medical History Alcohol abuse Alcoholic pancreatitis Amputation finger Back pain Chronic pancreatitis Fracture of finger, distal phalanx, open Fracture of finger, middle phalanx, open Onychomycosis Seizures Surgical History History of surgical amputation of finger Family History Mother Osteoarthritis Father Alcohol abuse Medical history unknown Social History household members: none Smoking Status: Current every day smoker alcohol intake: current substance use type: marijuana Smoking Status: Current every day smoker alcohol intake frequency: 3 or more drinks per day Alcohol type: beer Substance Use Type: marijuana Exam Initial Vital Signs Initial Vital Signs: Vital Signs Temperature 98.4 F 12/22/22 01:31 Pulse Rate 79 12/22/22 01:31 Respiratory Rate 20 12/22/22 01:31 Blood Pressure 128/82 12/22/22 01:31 Pulse Oximetry 99 12/22/22 01:31 Oxygen Delivery Method Room Air 12/22/22 01:31 General: disheveled, intoxicated, thin but not emaciated, unable to sit still for exam HEENT: Moist mucous membranes, minor bilateral scleral erythema without icterus Respiratory: Lungs are clear to auscultation, no wheezing no rales no rhonchi. Full and symmetrical air movement Cardiac: mild tachycardia but otherwise Regular rate and rhythm no murmurs no bruits Abdomen: Soft, no ascites Skin: physically dirty, spider hemangiomas appreciated Neurologic: acute delirium, moving all extremities Extremities: No specific trauma, Psych: agitated, intoxicated Procedures Intubation Time of Intubation: 06:10 Time out performed: Yes sedative: Etomidate Mg Given: 40 paralytic: Rocuronium Mg Given: 100 Assist Device Used: fiber optic device ET Tube Size: 8 Tube Secured Depth (cm): 24 Tube Secured Location: teeth Tube Placement Confirmation: Visualized tube passing through cords, Equal breath sounds bilaterally, No breath sounds over epigastrium, Confirmation by capnometry and Chest Xray Patient Tolerated Procedure: Well Lumbar Puncture Time of procedure: 05:01 Time Out Performed: Yes Patient Position: right lateral decubitus (and upright) Skin Prep: Povidone-Iodine 1% Local Anesthetic: lidocaine 1% Amount of anesthesia used (mL): 3 Spinal Needle Gauge: 22G Interspace Used: L3-L4 Additional Comments: unable to obtain CSF Procedural Sedation Time of procedure: 04:08 Consent signed: No Time out performed: Yes Indication: other (sedation to facilitate further work up) ASA Class: II Mallampati Airway Classification: Class II Ketamine: IV (150mg) Intraservice time/total sedation time (min): 51 ED Sedation Level: Moderate (Concious) Course Orders Ordered: Discontinued Medications Chlorhexidine Gluconate (Chlorhexidine Gluconate 15 Ml Cup) 15 ml PO Q6HR [facility] Admin: 12/23/22 17:45 Dose: Not Given Documented By: Admin: 12/23/22 12:38 Dose: Not Given Documented By: Admin: 12/23/22 05:33 Dose: 15 ml Documented By: Admin: 12/23/22 00:07 Dose: 15 ml Documented By: Admin: 12/22/22 18:56 Dose: 15 ml Documented By: Admin: 12/22/22 14:17 Dose: 15 ml Documented By: GUTIERREZ Diphenhydramine HCl (Diphenhydramine 50 Mg/Ml Vial) 50 mg IV NOW ONE Stop: 12/22/22 04:52 Last Admin: 12/22/22 05:00 Dose: 50 mg Documented By: BRENNA Enoxaparin Sodium (Enoxaparin 40 Mg/0.4 Ml Syringe) 40 mg SUBCUT DAILY [facility] Last Admin: 12/22/22 10:49 Dose: 40 mg Documented By: SYD Enoxaparin Sodium (Enoxaparin 40 Mg/0.4 Ml Syringe) 40 mg SUBCUT DAILY [facility] Last Admin: 12/23/22 09:28 Dose: 40 mg Documented By: SHAINA Haloperidol (Haloperidol 5 Mg/Ml Vial) 10 mg IV NOW ONE Stop: 12/22/22 04:52 Last Admin: 12/22/22 05:00 Dose: 10 mg Documented By: BRENNA Thiamine HCl 100 mg/ Sodium (Chloride) 101 mls @ 404 mls/hr IV NOW ONE Stop: 12/22/22 01:51 Last Infusion: 12/22/22 03:16 Dose: 404 mls/hr Documented By: Admin: 12/22/22 02:00 Dose: 404 mls/hr Documented By: BRENNA Magnesium Sulfate (Magnesium Sulfate) 2 gm in 50 mls @ 150 mls/hr IV NOW ONE Stop: 12/22/22 02:09 Last Infusion: 12/22/22 03:13 Dose: 150 mls/hr Documented By: BRENNA Co-signed By: HILDA Admin: 12/22/22 02:00 Dose: 150 mls/hr Documented By: BRENNA Co-signed By: HILDA Sodium Chloride (Normal Saline 0.9%) 1,000 mls @ 1,000 mls/hr IV BOLUS ONE Stop: 12/22/22 02:49 Last Infusion: 12/22/22 03:15 Dose: 1,000 mls/hr Documented By: Admin: 12/22/22 02:00 Dose: 1,000 mls/hr Documented By: BRENNA Midazolam HCl 50 mg/ Dextrose 50 mls @ 5 mls/hr IV TITRATE PRN; Protocol PRN Reason: sedatoin Last Infusion: 12/22/22 12:42 Dose: 5 mg/hr, 5 mls/hr Documented By: Admin: 12/22/22 10:45 Dose: 5 mg/hr, 5 mls/hr Documented By: Infusion: 12/22/22 10:45 Dose: 5 mg/hr, 5 mls/hr Documented By: Infusion: 12/22/22 08:32 Dose: 5 mg/hr, 5 mls/hr Documented By: Infusion: 12/22/22 08:25 Dose: 10 mg/hr, 10 mls/hr Documented By: Infusion: 12/22/22 08:15 Dose: 12 mg/hr, 12 mls/hr Documented By: Infusion: 12/22/22 07:39 Dose: 10 mg/hr, 10 mls/hr Documented By: Admin: 12/22/22 06:14 Dose: 5 mg/hr, 5 mls/hr Documented By: SB Fentanyl 1,000 mcg/ Dextrose 250 mls @ 12.723 mls/hr IV TITRATE ELEAZAR; Protocol Last Titration: 12/22/22 08:33 Dose: 1.5 mcg/kg/hr, 27.263 mls/hr Documented By: Titration: 12/22/22 07:44 Dose: 1.5 mcg/kg/hr, 27.263 mls/hr Documented By: Titration: 12/22/22 07:37 Dose: 1 mcg/kg/hr, 18.175 mls/hr Documented By: Admin: 12/22/22 06:09 Dose: 0.7 mcg/kg/hr, 12.723 mls/hr Documented By: SB Sodium Chloride (Normal Saline 0.9%) 1,000 mls @ 100 mls/hr IV CONT ELEAZAR Last Admin: 12/22/22 07:47 Dose: 100 mls/hr Documented By: RLS Thiamine HCl 100 mg/ Sodium (Chloride) 101 mls @ 404 mls/hr IV DAILY ELEAZAR Last Admin: 12/23/22 10:13 Dose: Not Given Documented By: Infusion: 12/22/22 11:00 Dose: 0 mls/hr Documented By: Admin: 12/22/22 10:40 Dose: 404 mls/hr Documented By: RLS Dextrose/Sodium Chloride (Dextrose 5%-0.9% Ns) 1,000 mls @ 100 mls/hr IV CONT ELEAZAR Last Admin: 12/23/22 05:05 Dose: 100 mls/hr Documented By: Infusion: 12/23/22 05:05 Dose: 100 mls/hr Documented By: Admin: 12/22/22 20:11 Dose: 100 mls/hr Documented By: Infusion: 12/22/22 19:35 Dose: 100 mls/hr Documented By: Infusion: 12/22/22 12:41 Dose: 100 mls/hr Documented By: Admin: 12/22/22 09:35 Dose: 100 mls/hr Documented By: RLS dexmedeTOMIDine in 0.9 % NaCL (Precedex) 400 mcg in 100 mls @ 3.635 mls/hr IV TITRATE ELEAZAR; Protocol Last Titration: 12/23/22 13:00 Dose: 0 mcg/kg/hr, 0 mls/hr Documented By: Titration: 12/23/22 09:25 Dose: 0.6 mcg/kg/hr, 10.905 mls/hr Documented By: Admin: 12/23/22 06:37 Dose: 1 mcg/kg/hr, 18.175 mls/hr Documented By: Titration: 12/23/22 06:37 Dose: 1 mcg/kg/hr, 18.175 mls/hr Documented By: Admin: 12/23/22 02:38 Dose: 1 mcg/kg/hr, 18.175 mls/hr Documented By: Titration: 12/23/22 02:38 Dose: 1 mcg/kg/hr, 18.175 mls/hr Documented By: Admin: 12/22/22 21:21 Dose: 1 mcg/kg/hr, 18.175 mls/hr Documented By: Titration: 12/22/22 21:21 Dose: 0.2 mcg/kg/hr, 3.635 mls/hr Documented By: Titration: 12/22/22 15:45 Dose: 0.2 mcg/kg/hr, 3.635 mls/hr Documented By: Titration: 12/22/22 12:41 Dose: 0.1 mcg/kg/hr, 1.818 mls/hr Documented By: Titration: 12/22/22 09:20 Dose: 0.1 mcg/kg/hr, 1.818 mls/hr Documented By: Titration: 12/22/22 08:32 Dose: 0.2 mcg/kg/hr, 3.635 mls/hr Documented By: Admin: 12/22/22 07:45 Dose: 0.5 mcg/kg/hr, 9.088 mls/hr Documented By: RLS Fentanyl 1,000 mcg/ Dextrose 250 mls @ 12.6 mls/hr IV TITRATE ELEAZAR; Protocol Last Titration: 12/23/22 13:00 Dose: 0 mcg/kg/hr, 0 mls/hr Documented By: Titration: 12/23/22 09:25 Dose: 0.4 mcg/kg/hr, 7.2 mls/hr Documented By: Admin: 12/23/22 00:57 Dose: 1.5 mcg/kg/hr, 27 mls/hr Documented By: Titration: 12/23/22 00:57 Dose: 1.5 mcg/kg/hr, 27 mls/hr Documented By: Admin: 12/22/22 15:51 Dose: 1.5 mcg/kg/hr, 27 mls/hr Documented By: CARISSA Midazolam HCl 50 mg/ Dextrose 50 mls @ 1.44 mls/hr IV TITRATE PRN; Protocol PRN Reason: Alcohol Withdrawal Last Titration: 12/23/22 09:27 Dose: 0 mg/kg/hr, 0 mls/hr Documented By: Admin: 12/23/22 05:39 Dose: 0.1 mg/kg/hr, 7 mls/hr Documented By: Titration: 12/23/22 05:39 Dose: 0.1 mg/kg/hr, 7 mls/hr Documented By: Admin: 12/22/22 23:07 Dose: 0.1 mg/kg/hr, 7 mls/hr Documented By: Titration: 12/22/22 23:07 Dose: 0.1 mg/kg/hr, 7 mls/hr Documented By: Titration: 12/22/22 19:33 Dose: 0.1 mg/kg/hr, 7 mls/hr Documented By: Admin: 12/22/22 16:17 Dose: 0.07 mg/kg/hr, 5 mls/hr Documented By: CARISSA Sodium Chloride (Normal Saline 0.9%) 500 mls @ 21 mls/hr IV CONT ELEAZAR Last Admin: 12/22/22 17:08 Dose: 21 mls/hr Documented By: CARISSA Propofol (Propofol) 1,000 mg in 100 mls @ 1.95 mls/hr IV TITRATE ELEAZAR; Protocol Last Titration: 12/23/22 13:00 Dose: 0 mcg/kg/min, 0 mls/hr Documented By: Admin: 12/23/22 09:00 Dose: 40 mcg/kg/min, 15.6 mls/hr Documented By: SHAINA Ketamine HCl (Ketamine 500 Mg/5 Ml Inj) 150 mg IV NOW ONE Stop: 12/22/22 04:04 Last Admin: 12/22/22 04:15 Dose: 150 mg Documented By: BRENNA Ketamine HCl (Ketamine 500 Mg/5 Ml Inj) 300 mg IV NOW ONE Stop: 12/22/22 05:28 Last Admin: 12/22/22 10:54 Dose: Not Given Documented By: SYD Lorazepam (Lorazepam 2 Mg/Ml Inj) 2 mg IV NOW ONE Stop: 12/22/22 01:51 Last Admin: 12/22/22 01:56 Dose: 2 mg Documented By: SB Lorazepam (Lorazepam 2 Mg/Ml Inj) 4 mg IV NOW ONE Stop: 12/22/22 02:42 Last Admin: 12/22/22 02:56 Dose: 4 mg Documented By: SB Lorazepam (Lorazepam 2 Mg/Ml Inj) 2 mg IV NOW ONE Stop: 12/22/22 04:52 Last Admin: 12/22/22 05:00 Dose: 2 mg Documented By: SB Lorazepam (Lorazepam 2 Mg/Ml Inj) 0 mg IV [id number] PRN; Protocol PRN Reason: Alcohol Withdrawal Last Admin: 12/23/22 01:56 Dose: 2 mg Documented By: Admin: 12/22/22 21:26 Dose: 2 mg Documented By: DL Midazolam HCl (Midazolam 5 Mg/Ml Vial) 50 mg IV NOW ONE Stop: 12/22/22 05:42 Last Admin: 12/22/22 06:00 Dose: 50 mg Documented By: SB Midazolam HCl (Midazolam 50 Mg/10 Ml Vial) 50 mg IV CONT ELEAZAR Midazolam HCl (Midazolam 2 Mg/2 Ml Vial) 2 mg IV NOW ONE Stop: 12/22/22 06:51 Last Admin: 12/22/22 06:20 Dose: 2 mg Documented By: BRENNA Morphine Sulfate (Morphine 2 Mg/Ml Inj) 2 mg IV Q3HR PRN PRN Reason: Agitation Naloxone HCl (Naloxone 0.4 Mg/Ml Vial) 0.2 mg IV Q2MIN PRN PRN Reason: Opiate Reversal Pantoprazole Sodium (Pantoprazole 40 Mg Vial) 40 mg IV DAILY [facility] Last Admin: 12/22/22 14:30 Dose: 40 mg Documented By: CARISSA Pantoprazole Sodium (Pantoprazole 40 Mg Vial) 40 mg IV DAILY [facility] Last Admin: 12/23/22 09:28 Dose: 40 mg Documented By: SHAINA Phenobarbital (Phenobarbital 65 Mg/Ml Vial) 260 mg IV NOW ONE Stop: 12/22/22 03:12 Last Admin: 12/22/22 03:24 Dose: 260 mg Documented By: BRENNA Rocuronium [place] (Rocuronium 50 Mg/5 Ml Inj) 100 mg IV NOW ONE Stop: 12/22/22 05:28 Last Admin: 12/22/22 06:00 Dose: 100 mg Documented By: BRENNA Sodium Chloride (Sodium Chloride 0.9% Flush) 10 ml IV PRN PRN PRN Reason: Flush Last Admin: 12/22/22 21:22 Dose: 10 ml Documented By: Admin: 12/22/22 17:07 Dose: 10 ml Documented By: CARISSA Sodium Chloride (Sodium Chloride 0.9% Flush) 10 ml IV BID [facility] Last Admin: 12/23/22 09:30 Dose: 10 ml Documented By: Admin: 12/22/22 21:22 Dose: 10 ml Documented By: CHOLO Vital Signs Vital signs: Vital Signs - 8 hr 12/22/22 01:31 12/22/22 03:40 12/22/22 03:57 Temperature 98.4 F Pulse Rate 79 90 91 H Respiratory Rate 20 28 H 24 Blood Pressure 128/82 Pulse Oximetry 99 94 94 Oxygen Delivery Method Room Air 12/22/22 03:57 12/22/22 04:00 12/22/22 04:37 Temperature Pulse Rate 89 91 H Respiratory Rate 26 H 32 H Blood Pressure 168/79 H Pulse Oximetry 94 98 Oxygen Delivery Method Room Air 12/22/22 04:59 12/22/22 04:59 12/22/22 05:00 Temperature Pulse Rate 78 82 Respiratory Rate 29 H 29 H Blood Pressure 175/86 H Pulse Oximetry 97 98 Oxygen Delivery Method 12/22/22 05:15 Temperature Pulse Rate 79 Respiratory Rate 22 Blood Pressure Pulse Oximetry Oxygen Delivery Method Medical Decision Making Lab Data 12/23/22 03:59 12/23/22 03:59 Labs: Lab Results 12/22/22 12/22/22 12/22/22 Range/Units 02:05 02:05 02:18 WBC 8.5 (4.5-11.0) X10^3/uL RBC 4.17 L (4.5-5.9) X10^6/uL Hgb 13.9 (13.5-17.5) g/dL Hct 39.8 L (41-53) % MCV 95.5 (80-100) fL MCH 33.4 (26-34) PG MCHC 34.9 (30-36) % RDW 12.9 (11.6-14.8) % Plt Count 219 (150-400) X10^3/uL Neut % (Auto) 64.2 (50-75) % Lymph % (Auto) 24.1 L (25-40) % [place] % (Auto) 9.3 (3-14) % Eos % (Auto) 1.0 L (2-4) % Baso % (Auto) 1.4 (0-2) % Neut # (Auto) 5500 (6096-3218) /uL Lymph # (Auto) 2100 (5095-1293) /uL [place] # (Auto) 800 (0-900) /uL Eos # (Auto) 100 (0-450) /uL Baso # (Auto) 100 (0-100) /uL ABG pH (7.35-7.45) ABG pCO2 (35-45) mmHg ABG pO2 (80-100) mmHg ABG HCO3 (23-27) mmol/L ABG Total CO2 (23-27) mmol/L ABG O2 Saturation (95-100) % ABG Base Excess (-2-3) mmol/L VBG pH (7.33-7.43) VBG pCO2 (45-50) mmHg VBG pO2 (35-45) mmHg VBG HCO3 (24-28) mmol/L VBG Total CO2 (24-29) mmol/L VBG O2 Saturation (70-75) % VBG Base Excess (0-4) mmol/L FiO2 Sodium (137-145) mmol/L Potassium (3.4-5.1) mmol/L Chloride (98-107) mmol/L Carbon Dioxide (22-32) mmol/L BUN (9-20) mg/dL Creatinine (0.66-1.25) mg/dL Estimated GFR (>60) mL/min BUN/Creatinine Ratio (6-22) Glucose (80-110) mg/dL Lactate 2.0 (0.7-2.1) mmol/L Calcium (8.4-10.2) mg/dL Magnesium (1.6-2.3) mg/dL Total Bilirubin (0.2-1.3) mg/dL Conjugated Bilirubin (0.0-0.3) md/dL Unconjugated Bilirubin (0.0-1.1) mg/dL AST (17-59) IU/L ALT (<50) IU/L Alkaline Phosphatase (38-126) U/L Troponin I (0.01-0.034) ng/mL Total Protein (6.3-8.2) g/dL Albumin (3.5-5.0) g/dL Globulin (1.7-4.1) g/dL Albumin/Globulin Ratio (1.0-2.8) Lipase (23-300) U/L Procalcitonin (<0.5) ng/mL TSH (0.47-4.68) uIU/mL Urine Color Urine Appearance Urine pH (4.5-8.0) Ur Specific [place] (1.000-1.035) Urine Protein (Negative) Urine Glucose (UA) (Negative) g/dL Urine Ketones (NEGATIVE) Urine Occult Blood (Negative) Urine Nitrate (Negative) Urine Bilirubin (NEGATIVE) Urine Urobilinogen (0.2) E.U./dL Ur Leukocyte Esterase (NEGATIVE) Urine RBC (0-5/HPF) Urine WBC Urine Bacteria (None) Ur Culture Indicated? Micro UA Comment Salicylates (<20) mg/dL U Opiates 300ng/mL cut Negative (Negative) Ur Oxycodone Screen Negative (Negative) Urine Methadone Screen Negative (Negative) Acetaminophen (10-30) ug/mL Ur Barbiturates Screen Negative (Negative) U Tricyclic Antidepress Negative (Negative) Ur Phencyclidine Scrn Negative (Negative) Ur Amphetamines Screen Negative (Negative) U Methamphetamines Scrn Negative (Negative) Ur MDMA Scrn (Ecstasy) Negative (Negative) U Benzodiazepines Scrn Negative (Negative) Urine Cocaine Screen Negative (Negative) U Marijuana (THC) Screen Positive H (Negative) Ethyl Alcohol ( - 10) mg/dL SARS-CoV-2 (PCR) (Negative) 12/22/22 12/22/22 12/22/22 Range/Units 02:18 02:20 02:50 WBC (4.5-11.0) X10^3/uL RBC (4.5-5.9) X10^6/uL Hgb (13.5-17.5) g/dL Hct (41-53) % MCV (80-100) fL MCH (26-34) PG MCHC (30-36) % RDW (11.6-14.8) % Plt Count (150-400) X10^3/uL Neut % (Auto) (50-75) % Lymph % (Auto) (25-40) % [place] % (Auto) (3-14) % Eos % (Auto) (2-4) % Baso % (Auto) (0-2) % Neut # (Auto) (7648-1651) /uL Lymph # (Auto) (3120-9462) /uL [place] # (Auto) (0-900) /uL Eos # (Auto) (0-450) /uL Baso # (Auto) (0-100) /uL ABG pH (7.35-7.45) ABG pCO2 (35-45) mmHg ABG pO2 (80-100) mmHg ABG HCO3 (23-27) mmol/L ABG Total CO2 (23-27) mmol/L ABG O2 Saturation (95-100) % ABG Base Excess (-2-3) mmol/L VBG pH (7.33-7.43) VBG pCO2 (45-50) mmHg VBG pO2 (35-45) mmHg VBG HCO3 (24-28) mmol/L VBG Total CO2 (24-29) mmol/L VBG O2 Saturation (70-75) % VBG Base Excess (0-4) mmol/L FiO2 Sodium 131 L (137-145) mmol/L Potassium 3.8 (3.4-5.1) mmol/L Chloride 99 (98-107) mmol/L Carbon Dioxide 25 (22-32) mmol/L BUN 6 L (9-20) mg/dL Creatinine 0.49 L (0.66-1.25) mg/dL Estimated GFR > 60 (>60) mL/min BUN/Creatinine Ratio 12.2 (6-22) Glucose 128 H (80-110) mg/dL Lactate (0.7-2.1) mmol/L Calcium 8.0 L (8.4-10.2) mg/dL Magnesium 2.6 H (1.6-2.3) mg/dL Total Bilirubin 0.4 (0.2-1.3) mg/dL Conjugated Bilirubin 0.0 (0.0-0.3) md/dL Unconjugated Bilirubin 0.1 (0.0-1.1) mg/dL AST 30 (17-59) IU/L ALT 19 (<50) IU/L Alkaline Phosphatase 112 (38-126) U/L Troponin I < 0.012 (0.01-0.034) ng/mL Total Protein 6.6 (6.3-8.2) g/dL Albumin 4.0 (3.5-5.0) g/dL Globulin 2.6 (1.7-4.1) g/dL Albumin/Globulin Ratio 1.5 (1.0-2.8) Lipase 52 (23-300) U/L Procalcitonin 0.05 (<0.5) ng/mL TSH (0.47-4.68) uIU/mL Urine Color Yellow Urine Appearance Clear Urine pH 8.0 (4.5-8.0) Ur Specific [place] 1.010 (1.000-1.035) Urine Protein Negative (Negative) Urine Glucose (UA) Negative (Negative) g/dL Urine Ketones Negative (NEGATIVE) Urine Occult Blood Negative (Negative) Urine Nitrate Negative (Negative) Urine Bilirubin Negative (NEGATIVE) Urine Urobilinogen 0.2 (0.2) E.U./dL Ur Leukocyte Esterase Negative (NEGATIVE) Urine RBC None seen (0-5/HPF) Urine WBC Not Reportable Urine Bacteria None seen (None) Ur Culture Indicated? Cult not indicated Micro UA Comment * Salicylates < 1.0 (<20) mg/dL U Opiates 300ng/mL cut (Negative) Ur Oxycodone Screen (Negative) Urine Methadone Screen (Negative) Acetaminophen < 10 (10-30) ug/mL Ur Barbiturates Screen (Negative) U Tricyclic Antidepress (Negative) Ur Phencyclidine Scrn (Negative) Ur Amphetamines Screen (Negative) U Methamphetamines Scrn (Negative) Ur MDMA Scrn (Ecstasy) (Negative) U Benzodiazepines Scrn (Negative) Urine Cocaine Screen (Negative) U Marijuana (THC) Screen (Negative) Ethyl Alcohol 79 H ( - 10) mg/dL SARS-CoV-2 (PCR) (Negative) 12/22/22 12/22/22 12/22/22 Range/Units 02:50 05:06 05:25 WBC (4.5-11.0) X10^3/uL RBC (4.5-5.9) X10^6/uL Hgb (13.5-17.5) g/dL Hct (41-53) % MCV (80-100) fL MCH (26-34) PG MCHC (30-36) % RDW (11.6-14.8) % Plt Count (150-400) X10^3/uL Neut % (Auto) (50-75) % Lymph % (Auto) (25-40) % [place] % (Auto) (3-14) % Eos % (Auto) (2-4) % Baso % (Auto) (0-2) % Neut # (Auto) (4398-6920) /uL Lymph # (Auto) (8551-3127) /uL [place] # (Auto) (0-900) /uL Eos # (Auto) (0-450) /uL Baso # (Auto) (0-100) /uL ABG pH (7.35-7.45) ABG pCO2 (35-45) mmHg ABG pO2 (80-100) mmHg ABG HCO3 (23-27) mmol/L ABG Total CO2 (23-27) mmol/L ABG O2 Saturation (95-100) % ABG Base Excess (-2-3) mmol/L VBG pH 7.38 (7.33-7.43) VBG pCO2 46.4 (45-50) mmHg VBG pO2 41 (35-45) mmHg VBG HCO3 27 (24-28) mmol/L VBG Total CO2 29 (24-29) mmol/L VBG O2 Saturation 75 (70-75) % VBG Base Excess 2.0 (0-4) mmol/L FiO2 40 Sodium (137-145) mmol/L Potassium (3.4-5.1) mmol/L Chloride (98-107) mmol/L Carbon Dioxide (22-32) mmol/L BUN (9-20) mg/dL Creatinine (0.66-1.25) mg/dL Estimated GFR (>60) mL/min BUN/Creatinine Ratio (6-22) Glucose (80-110) mg/dL Lactate (0.7-2.1) mmol/L Calcium (8.4-10.2) mg/dL Magnesium (1.6-2.3) mg/dL Total Bilirubin (0.2-1.3) mg/dL Conjugated Bilirubin (0.0-0.3) md/dL Unconjugated Bilirubin (0.0-1.1) mg/dL AST (17-59) IU/L ALT (<50) IU/L Alkaline Phosphatase (38-126) U/L Troponin I (0.01-0.034) ng/mL Total Protein (6.3-8.2) g/dL Albumin (3.5-5.0) g/dL Globulin (1.7-4.1) g/dL Albumin/Globulin Ratio (1.0-2.8) Lipase (23-300) U/L Procalcitonin (<0.5) ng/mL TSH 0.279 L (0.47-4.68) uIU/mL Urine Color Urine Appearance Urine pH (4.5-8.0) Ur Specific [place] (1.000-1.035) Urine Protein (Negative) Urine Glucose (UA) (Negative) g/dL Urine Ketones (NEGATIVE) Urine Occult Blood (Negative) Urine Nitrate (Negative) Urine Bilirubin (NEGATIVE) Urine Urobilinogen (0.2) E.U./dL Ur Leukocyte Esterase (NEGATIVE) Urine RBC (0-5/HPF) Urine WBC Urine Bacteria (None) Ur Culture Indicated? Micro UA Comment Salicylates (<20) mg/dL U Opiates 300ng/mL cut (Negative) Ur Oxycodone Screen (Negative) Urine Methadone Screen (Negative) Acetaminophen (10-30) ug/mL Ur Barbiturates Screen (Negative) U Tricyclic Antidepress (Negative) Ur Phencyclidine Scrn (Negative) Ur Amphetamines Screen (Negative) U Methamphetamines Scrn (Negative) Ur MDMA Scrn (Ecstasy) (Negative) U Benzodiazepines Scrn (Negative) Urine Cocaine Screen (Negative) U Marijuana (THC) Screen (Negative) Ethyl Alcohol ( - 10) mg/dL SARS-CoV-2 (PCR) Negative (Negative) 12/22/22 Range/Units 07:28 WBC (4.5-11.0) X10^3/uL RBC (4.5-5.9) X10^6/uL Hgb (13.5-17.5) g/dL Hct (41-53) % MCV (80-100) fL MCH (26-34) PG MCHC (30-36) % RDW (11.6-14.8) % Plt Count (150-400) X10^3/uL Neut % (Auto) (50-75) % Lymph % (Auto) (25-40) % [place] % (Auto) (3-14) % Eos % (Auto) (2-4) % Baso % (Auto) (0-2) % Neut # (Auto) (1534-7797) /uL Lymph # (Auto) (4903-6251) /uL [place] # (Auto) (0-900) /uL Eos # (Auto) (0-450) /uL Baso # (Auto) (0-100) /uL ABG pH 7.36 (7.35-7.45) ABG pCO2 46.8 H (35-45) mmHg ABG pO2 91 (80-100) mmHg ABG HCO3 26 (23-27) mmol/L ABG Total CO2 28 H (23-27) mmol/L ABG O2 Saturation 97 (95-100) % ABG Base Excess 1.0 (-2-3) mmol/L VBG pH (7.33-7.43) VBG pCO2 (45-50) mmHg VBG pO2 (35-45) mmHg VBG HCO3 (24-28) mmol/L VBG Total CO2 (24-29) mmol/L VBG O2 Saturation (70-75) % VBG Base Excess (0-4) mmol/L FiO2 60 Sodium (137-145) mmol/L Potassium (3.4-5.1) mmol/L Chloride (98-107) mmol/L Carbon Dioxide (22-32) mmol/L BUN (9-20) mg/dL Creatinine (0.66-1.25) mg/dL Estimated GFR (>60) mL/min BUN/Creatinine Ratio (6-22) Glucose (80-110) mg/dL Lactate (0.7-2.1) mmol/L Calcium (8.4-10.2) mg/dL Magnesium (1.6-2.3) mg/dL Total Bilirubin (0.2-1.3) mg/dL Conjugated Bilirubin (0.0-0.3) md/dL Unconjugated Bilirubin (0.0-1.1) mg/dL AST (17-59) IU/L ALT (<50) IU/L Alkaline Phosphatase (38-126) U/L Troponin I (0.01-0.034) ng/mL Total Protein (6.3-8.2) g/dL Albumin (3.5-5.0) g/dL Globulin (1.7-4.1) g/dL Albumin/Globulin Ratio (1.0-2.8) Lipase (23-300) U/L Procalcitonin (<0.5) ng/mL TSH (0.47-4.68) uIU/mL Urine Color Urine Appearance Urine pH (4.5-8.0) Ur Specific [place] (1.000-1.035) Urine Protein (Negative) Urine Glucose (UA) (Negative) g/dL Urine Ketones (NEGATIVE) Urine Occult Blood (Negative) Urine Nitrate (Negative) Urine Bilirubin (NEGATIVE) Urine Urobilinogen (0.2) E.U./dL Ur Leukocyte Esterase (NEGATIVE) Urine RBC (0-5/HPF) Urine WBC Urine Bacteria (None) Ur Culture Indicated? Micro UA Comment Salicylates (<20) mg/dL U Opiates 300ng/mL cut (Negative) Ur Oxycodone Screen (Negative) Urine Methadone Screen (Negative) Acetaminophen (10-30) ug/mL Ur Barbiturates Screen (Negative) U Tricyclic Antidepress (Negative) Ur Phencyclidine Scrn (Negative) Ur Amphetamines Screen (Negative) U Methamphetamines Scrn (Negative) Ur MDMA Scrn (Ecstasy) (Negative) U Benzodiazepines Scrn (Negative) Urine Cocaine Screen (Negative) U Marijuana (THC) Screen (Negative) Ethyl Alcohol ( - 10) mg/dL SARS-CoV-2 (PCR) (Negative) Point of Care Testing Glucose POC 128 Point of care testing: Point of Care Testing Glucose POC 128 MDM Narrative Medical decision making narrative: CC: overdose, self administered Narcan, states that he drank 2 pints Of whiskey today. This is an acute problem, systemic symptoms, uncertain prognosis Complicating co-morbidities: history of alcohol use disorder with significant withdrawal and prior admission for such Corroborating data: Data collected from: patient, medics Social determinants of health that may influence the patients condition: tenuous social situation, unsure if he actually is able to safely care for himself Medical records reviewed: prior hospital admissions reviewed Differential considered: acute alcohol intoxication, alcohol withdrawal, opioid intoxication, possibility of exposure to Xylazine, infection, head bleed, hypoxia, multi-system organ failure Exam documented above, pertinent findings include: significant agitation, Lab Test results independently reviewed as above. Pertinent findings: CBC shows no leukocytosis and no acute anemia suggesting no overwhelming bacterial infection or acute GI bleed chemistries show mild hyponatremia at 1:31 a.m.. Creatinine of 0.49 carbon dioxide 25 potassium 3.8. Glucose is 128. Lactic acid is at 2.0, calcium is slightly low at 8.0. Liver enzymes are unremarkable blood alcohol level is 79. Urine shows THC only however neither fentanyl nor xylozine which show with that urine drug screen Troponin is unremarkable TSH is suppressed at 0.279 procalcitonin is unremarkable VBG has a pH of 7.39, CO2 of 49 Independently reviewed EKG: Sinus rhythm at a rate of 77 left axis deviation. No acute ischemic changes Imaging studies independently reviewed:CT head: No acute intracranial pathology CXR: No acute abnormality post intubation chest x-ray shows appropriately placed tube, no pneumothorax and no new findings Consultations: Re-evaluations: 2:40am With to nurse standby they were able to help him remain still enough to get in magnesium, thiamine and initial saline. He has been cleaned up, was covered with stool. Was initially given 2 mg of Ativan while I am waiting for blood work to return. Has had little effect and certainly no respiratory suppression. Still remains agitated and blood work is still pending. Will give 4 mg of Ativan and continue close follow-up and monitoring 312am despite Ativan, his agitation acute delirium is worsening. Still requiring to nurses to keep him safe. Currently on a mattress on the floor for his safety. Still waiting for labs to return. I am concerned that he is going to require enough sedation that he is no longer going to be able to protect his airway. We will go ahead and try to 160 mg of IV phenobarbital.Discussion with nursing staff to clearly watch respiratory status and recognized that he may need intubation. 4am labs return with an alcohol level at 79. This makes his current significantly altered mental status less likely to be acute intoxication. will expand workup to include head CT, chest x-ray,Cardiac workup. With no fever and no leukocytosis overall infection is less likely but procalcitonin will be added. To facilitate the additional workup he will need to be sedated further. At this point he has had all medications taken prior to arrival, a total of 6 mg of Ativan, 260 mg of phenobarbital and is still maintaining his airway, not significantly tachycardic, blood pressure is 128/82. Will do a conscious sedation with 2 milligrams/kilogram of ketamine. Respiratory therapy as well as tech for diagnostic imaging are notified. 452 CT initial review does not look like a bleed or tumor. CXR is unremarkable. Attempted LP. Multiple tries in multiple positions and due to his increased agitation was not able to get CSF. He ended up bending the spinal needle and the attempts were aborted at that time. Still significant agitation as ketamine is wearing off. Will try haldol/benadryl/ativan and continue close cardio/respiratory monitoring. with remainder of labs returning, cardiac etiology, infectious etiology including meningitis is far less likely. Awaiting formal CT read. He remains normotensive, heart rate at 78, oxygen saturations in the upper 90s suggesting delirium tremens as a cause for his altered mental status Is somewhat less likely. 6am with all of the sedation over the course of the evening patient continues to be dramatically agitated requiring 2 person at bedside at all times for his safety. There is no evidence of head injury or head bleed. No significant acidosis or toxidrome. No evidence of obvious infection. Is not significantly tachycardic or hypertensive to suggest severe alcohol withdrawal. He is having no signs of bradycardia or hypotension. At this point his dramatic agitation/delirium is presumably due to his alcohol use and whatever intoxicant he took prior to giving himself Narcan. At this point for patient safety he is intubated. Etomidate and rocuronium are used and then fentanyl and Versed drips are continued. Will discuss with hospitalist service Critical Care Time Critical Care Time Critical Care Time: Yes Total Critical Care Time: 112 Attestation: Critical care time is separate from other billable procedures. There is a high probability of a significant, sudden or life-threatening deterioration that requires my full and direct attention, intervention and personal management. This critical care time includes consultation with family and other consulting doctors, review of records, and interpretation of data from labs, EKGs and imaging as well as managements of continued agitated delirium Discharge Plan Departure Patient Disposition: Admitted As Inpatient Clinical Impression: Acute delirium Overdose Qualifiers: Encounter type: initial encounter Injury intent: undetermined intent Qualified Code(s): T50.904A - Poisoning by unspecified drugs, medicaments and biological substances, undetermined, initial encounter Admit Date/Time: 12/22/22 07:51 Admit Provider: Ai Navarro
[2022-12-22] MEDS: LORazepam 2 MG/ML INJ IV ×3 (01:56→21:26)
[2022-12-22] MEDS: SODIUM CHLORIDE 0.9% 1,000 ML 1000 ML IV (02:00)
[2022-12-22] MEDS: THIAMINE 100 MG in SODIUM CHLORIDE 0.9% 100 ML 404 MG IV ×2 (02:00→10:40)
[2022-12-22] MEDS: MAGNESIUM SULFATE 2 GM/50 ML PIGGYBACK IV (02:00)
--- NOTE | 2022-12-22 02:00 | PC.NURSE ---
Patient requiring constant 2:1 nursing care for safety and to complete treatment. Patient is confused and unsteady, frequently trying to stand and near fall unless for staff in room to redirect patient back to mattress on floor. Patient attempting to remove cardiac leads and IV, only maintained in place because of staff in room. Patient not making clear statements, mumbling and at times growling.
[2022-12-22 02:27] LABS: Add Manual Diff / Slide Review NO; Basophils Absolute Auto 100 /uL (0-100); Basophils Percent Auto 1.4 % (0-2); Eosinophils Absolute Auto 100 /uL (0-450); Hematocrit 39.8 % (41-53); Hemoglobin 13.9 g/dL (13.5-17.5); Lymphocytes Absolute Auto 2100 /uL (1100-4500); Lymphocytes Percent Auto 24.1 % (25-40); Mean Corpuscular HGB Conc 34.9 % (30-36); Mean Corpuscular Hemoglobin 33.4 PG (26-34); Mean Corpuscular Volume 95.5 fL (80-100); Monocytes Absolute Auto 800 /uL (0-900); Monocytes Percent Auto 9.3 % (3-14); Neutrophils Absolute Auto 5500 /uL (1500-7000); Neutrophils Percent Auto 64.2 % (50-75); Platelet Count 219 X10^3/uL (150-400); Red Blood Cell Count 4.17 X10^6/uL (4.5-5.9); Red Cell Distribution Width 12.9 % (11.6-14.8); White Blood Cell Count 8.5 X10^3/uL (4.5-11.0)
[2022-12-22 02:35] LABS: Ur Creatinine 20 (Normal); Ur Specific Gravity 1.015 (Normal); Urine pH 7 (Normal)
[2022-12-22 02:36] LABS: UR Morphine/Opiate cutoff 300 Negative (Negative); Urine Amphetamines Negative (Negative); Urine Barbiturates Negative (Negative); Urine Benzodiazepines Negative (Negative); Urine Cocaine Negative (Negative); Urine MDMA Negative (Negative); Urine Methadone Negative (Negative); Urine Methamphetamines Negative (Negative); Urine Oxycodone Negative (Negative); Urine Phencyclidine Negative (Negative); Urine Tetrahydrocannabinol Positive (Negative); Urine Tricyclic Antidepressant Negative (Negative)
[2022-12-22] MEDS: LORazepam 2 MG/ML INJ 4 MG IV (02:56)
[2022-12-22 03:08] LABS: BUN Creatinine Ratio 12.2 (6-22); Blood Urea Nitrogen 6 mg/dL (9-20); Carbon Dioxide 25 mmol/L (22-32); Chloride 99 mmol/L (98-107); HEMOLYSIS 28 (0-50); Potassium 3.8 mmol/L (3.4-5.1); Sodium 131 mmol/L (137-145)
[2022-12-22 03:09] LABS: Acetaminophen < 10 ug/mL (10-30); Alanine Aminotransferase 19 IU/L (<50); Albumin Globulin Ratio 1.5 (1.0-2.8); Alkaline Phosphatase 112 U/L (38-126); Aspartate Aminotransferase 30 IU/L (17-59); Bilirubin Total 0.4 mg/dL (0.2-1.3); Bilirubin Unconjugated 0.1 mg/dL (0.0-1.1); Estimated Glomerular Filt Rate > 60 mL/min (>60); Ethanol (ETOH) 79 mg/dL; Globulin 2.6 g/dL (1.7-4.1); Glucose 128 mg/dL (80-110); Salicylate < 1.0 mg/dL (<20); Total Protein 6.6 g/dL (6.3-8.2)
[2022-12-22] MEDS: PHENobarbital 65 MG/ML VIAL 260 MG IV (03:24)
--- NOTE | 2022-12-22 03:30 | PC.NURSE ---
Patient moved to Rm 1, placed in 2-point soft wrist restraints r/t altered mental status, patient safety, and to protect lines. Restraints placed on at 0330. Patient on cardiac bedside monitor.
--- NOTE | 2022-12-22 03:59 | DI.RAD.S_ITS ---
PROCEDURE: XR CHEST 1V INDICATIONS: altered mental status TECHNIQUE: One view of the chest was acquired. COMPARISON: [facility], CR, XR CHEST 1V, 03/12/2022, 6:21. FINDINGS: Surgical changes and devices: None. Lungs and pleura: Lungs are clear. No pleural effusions or pneumothorax. Mediastinum: Mediastinal contours appear normal. Heart size is normal. Bones and chest wall: No suspicious bony lesions. Overlying soft tissues appear unremarkable. IMPRESSION: No acute process. Dictated by: Candice Perez M.D. on 12/22/2022 at 8:48 Approved by: Candice Perez M.D. on 12/22/2022 at 8:49
--- NOTE | 2022-12-22 03:59 | DI.CT.S_ITS ---
PROCEDURE: CT HEAD/BRAIN WO CON INDICATIONS: altered mental status TECHNIQUE: Noncontrast 4.5 mm thick angled axial sections acquired from the foramen magnum to the vertex, with coronal and sagittal reformats. For radiation dose reduction, the following was used: automated exposure control, adjustment of mA and/or kV according to patient size. COMPARISON: None. FINDINGS: Image quality: Excellent. CSF spaces: Basal cisterns are patent. No extra-axial fluid collections. The ventricles are symmetric in size and shape. Brain: No intracranial bleeds or masses. There is cerebral volume loss for age, with resultant ventricular and sulcal prominence. There are periventricular and deep white matter chronic small vessel ischemic changes. There is intracranial internal carotid artery atherosclerosis. Skull and face: Calvarium and visualized facial bones appear intact, without suspicious lesions. Sinuses: Visualized sinuses and mastoids are clear. IMPRESSION: No acute intracranial abnormality. Concordant with preliminary interpretation. Dictated by: Candice Perez M.D. on 12/22/2022 at 7:40 Approved by: Candice Perez M.D. on 12/22/2022 at 7:41
--- NOTE | 2022-12-22 04:09 | PC.NURSE ---
Patient continues to frequently pull at restraints and kick legs out uncoordinated-like, risking getting legs injured by rails. Seizure pads placed on bed rails to protect patient. RT called to set-up for procedural sedation to complete necessary imaging and treatment.
[2022-12-22 04:14] LABS: Lipase 52 U/L (23-300); Magnesium 2.6 mg/dL (1.6-2.3)
[2022-12-22] MEDS: KETAMINE 500 MG/5 ML INJ 150 MG IV (04:15)
[2022-12-22 04:27] LABS: Troponin I < 0.012 ng/mL (0.01-0.034)
[2022-12-22 04:31] LABS: Procalcitonin 0.05 ng/mL (<0.5)
[2022-12-22 04:49] LABS: Thyroid Stimulating Hormone 0.279 uIU/mL (0.47-4.68)
[2022-12-22] MEDS: HALOPERIDOL 5 MG/ML VIAL 10 MG IV (05:00)
[2022-12-22] MEDS: diphenhydrAMINE 50 MG/ML VIAL IV (05:00)
[2022-12-22 05:26] LABS: COVID19 -Nasal RAPID Negative (Negative)
[2022-12-22 05:30] LABS: Appearance Urine UA CLEAR; Bilirubin Urine UA NEGATIVE (NEGATIVE); Color Urine UA YELLOW; Glucose Urine UA NEGATIVE (Negative); Ketones Urine UA NEGATIVE (NEGATIVE); Leukocyte Esterase Urine UA NEGATIVE (NEGATIVE); Nitrite Urine UA NEGATIVE (Negative); Occult Blood Urine UA NEGATIVE (Negative); Protein Urine UA NEGATIVE (Negative); Urobilinogen Urine UA 0.2 E.U./dL (0.2)
[2022-12-22 05:42] LABS: Bacteria Urine None Seen; RBC Urine None Seen (0-5/HPF)
[2022-12-22 05:43] LABS: Culture Indicated Urine Cult Not Indicated
[2022-12-22 05:46] LABS: Fractionated Inspired Oxygen 40; HCO3 VBG 27 mmol/L (24-28); Oxygen Saturation VBG 75 % (70-75); PCO2 VBG 46.4 mmHg (45-50); PO2 VBG 41 mmHg (35-45); Total CO2 VBG 29 mmol/L (24-29); pH VBG 7.38 (7.33-7.43)
[2022-12-22] MEDS: ROCURONIUM 50 MG/5 ML INJ 100 MG IV (06:00)
[2022-12-22] MEDS: MIDAZOLAM 5 MG/ML VIAL 50 MG IV (06:00)
[2022-12-22] MEDS: fentaNYL 1,000 MCG in DEXTROSE 5% IN WATER 230 ML 12.723 MCG IV (06:09)
--- NOTE | 2022-12-22 06:09 | DI.RAD.S_ITS ---
PROCEDURE: XR CHEST 1V INDICATIONS: intubation TECHNIQUE: One view of the chest was acquired. COMPARISON: [facility], CR, XR CHEST 1V, 12/22/2022, 4:15. FINDINGS: Surgical changes and devices: ETT is present, tip of which is roughly 40 mm above the yari. NGT extends into the gastric lumen. Lungs and pleura: There is mild patchy bilateral perihilar reticulonodular opacity. No pleural effusions or pneumothorax. Mediastinum: Mediastinal contours appear normal. Heart size is normal. Bones and chest wall: No suspicious bony lesions. Overlying soft tissues appear unremarkable. IMPRESSION: 1. Mild bilateral atelectasis versus atypical pneumonia. Dictated by: Candice Perez M.D. on 12/22/2022 at 7:39 Approved by: Candice Perez M.D. on 12/22/2022 at 7:40
[2022-12-22] MEDS: MIDAZOLAM 50 MG in DEXTROSE 5 % IN WATER 40 ML IV ×3 (06:14→16:17)
--- NOTE | 2022-12-22 06:15 | PC.NURSE ---
Successful intubation at 0605, 40mg Etomidate and 100mg Succinylcholine used for RSI. Patient placed on mechanical ventilator, 8.0 ETT/26 @ the lip, Vent settings: Resp 18/TV 500/Fio2 60%, PEEP 5. OG placed and confirmed by Xray. 16 [place] Temp sensing [place] in place, draining clear yellow urine. Sedation maintained with Fentanyl gtt @ 0.7mcg/kg/hr and Midazolam gtt @ 5mg/hr. Patient remains in soft wrist restraints, but no longer in soft ankle restraints.
[2022-12-22] MEDS: MIDAZOLAM 2 MG/2 ML VIAL IV (06:20)
[2022-12-22 07:41] LABS: pH ABG 7.36 (7.35-7.45)
[2022-12-22 07:42] LABS: Fractionated Inspired Oxygen 60; HCO3 ABG 26 mmol/L (23-27); Oxygen Saturation ABG 97 % (95-100); PCO2 ABG 46.8 mmHg (35-45); PO2 ABG 91 mmHg (80-100); TCO2 ABG 28 mmol/L (23-27)
[2022-12-22] MEDS: dexmedeTOMIDine in 0.9 % NaCL 400 MCG/100 ML PLAST..BAG 9.088 MCG IV (07:45)
[2022-12-22] MEDS: SODIUM CHLORIDE 0.9% 1,000 ML 100 ML IV (07:47)
[2022-12-22 09:26] LABS: Adenovirus Not Detected (Not Detect); B. parapertussis Not Detected (Not Detecte); Coronavirus 229E Not Detected (Not Detect); Coronavirus HKU1 Not Detected (Not Detect); Coronavirus NL 63 Not Detected (Not Detect); Coronavirus OC43 Not Detected (Not Detect); Human Metapneumovirus Not Detected (Not Detect); Human Rhinovirus/Enterovirus Not Detected (Not Detect); Influenza A Not Detected (Not Detect); Influenza B Not Detected (Not Detect); Parainfluenza Virus 1 Not Detected (Not Detect); Parainfluenza Virus 2 Not Detected (Not Detect); Parainfluenza Virus 3 Not Detected (Not Detect); Parainfluenza Virus 4 Not Detected (Not Detect); Respiratory Syncytial Virus Not Detected (Not Detect); SARS- CoV-2 Not Detected (Not Detecte)
--- NOTE | 2022-12-22 09:26 | PC.NURSE ---
ogt to LIS , draining bilious green. 250 cc out since 744 this am.
[2022-12-22 09:27] LABS: Bordetella pertussis Not Detected (Not Detecte); Chlamydophila pneumoniae Not Detected (Not Detect); Mycoplasma pneumoniae Not Detected (Not Detect)
--- NOTE | 2022-12-22 09:27 | PC.NURSE ---
pt is restless and ventilated.
[2022-12-22] MEDS: DEXTROSE 5%-0.9% NS 1,000 ML 100 ML IV ×2 (09:35→20:11)
--- NOTE | 2022-12-22 10:09 | PC.NURSE ---
temp sensing lunsford placed on night cleaner.
[2022-12-22] MEDS: ENOXAPARIN 40 MG/0.4 ML SYRINGE SUBCUT (10:49)
--- NOTE | 2022-12-22 13:37 | PC.NURSE ---
Admission note: Patient wheeled via tab bed from ED to ICU room 228 at 1300. Hospitalist Zhanna notified. Tele ICU called, stated no consult yet. Hospitalist notified that sedation drips were discontinued in the order set during transfer. Hospitalist stated to continue sedation from ED orders until TeleICU is consulted and provides new orders. Care ongoing.
--- NOTE | 2022-12-22 14:04 | PM.CN.EICU ---
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 It is unclear who actually called medics but patient states that he took some fentanyl gave himself Narcan and then called police.? He notes that he typically drinks 4 or 5 beers a day but duane had 2 pt of whiskey.? He is significantly agitated and combative. Pt was extremely combative and agitated, was intubated and placed on ventilator. He was admitted to ICU in room 228 COUNTS INCLUDE 234 BEDS AT THE [facility] Medical History Alcohol abuse Alcoholic pancreatitis Amputation finger Back pain Chronic pancreatitis Fracture of finger, distal phalanx, open Fracture of finger, middle phalanx, open Onychomycosis Seizures Surgical History History of surgical amputation of finger Family History Mother Osteoarthritis Father Alcohol abuse Medical history unknown Social History household members: none Smoking Status: Current every day smoker alcohol intake: current substance use type: marijuana Current Medications Current Medications Medications: Visit Medications (administered) Generic Name Dose Route Start Last Admin Trade Name Freq PRN Reason Stop Dose Admin Enoxaparin Sodium 40 mg 12/22/22 09:00 12/22/22 10:49 Enoxaparin 40 Mg/0.4 Ml Syringe SUBCUT 40 mg DAILY ELEAZAR Administration Thiamine HCl 100 mg/ Sodium 101 mls @ 404 mls/hr 12/22/22 09:00 12/22/22 11:00 Chloride IV Infused DAILY ELEAZAR Infusion Dextrose/Sodium Chloride 1,000 mls @ 100 mls/hr 12/22/22 07:00 12/22/22 12:41 Dextrose 5%-0.9% Ns IV 100 mls/hr CONT ELEAZAR Infusion dexmedeTOMIDine in 0.9 % NaCL 400 mcg in 100 mls @ 3.635 mls/hr 12/22/22 07:00 12/22/22 12:41 Precedex IV 0.1 mcg/kg/hr TITRATE ELEAZAR 1.818 mls/hr Titration Protocol 0.2 MCG/KG/HR Exam Vital Signs (past 8 hours): - 12/22/22 06:05 12/22/22 06:07 12/22/22 06:07 Temperature Pulse Rate 84 90 Respiratory Rate 16 18 Blood Pressure 199/111 H Pulse Oximetry 99 Oxygen Delivery Method 12/22/22 06:10 12/22/22 06:10 12/22/22 06:15 Temperature Pulse Rate 83 79 Respiratory Rate 18 18 Blood Pressure 199/110 H Pulse Oximetry 99 100 Oxygen Delivery Method 12/22/22 06:15 12/22/22 06:29 12/22/22 06:29 Temperature 98.4 F Pulse Rate 75 Respiratory Rate 18 Blood Pressure 175/98 H 168/88 H Pulse Oximetry 98 Oxygen Delivery Method 12/22/22 06:30 12/22/22 06:30 12/22/22 06:45 Temperature 98.4 F Pulse Rate 74 Respiratory Rate 18 Blood Pressure 148/85 H 134/76 Pulse Oximetry 97 Oxygen Delivery Method 12/22/22 06:45 12/22/22 07:00 12/22/22 07:00 Temperature 98.6 F 98.4 F Pulse Rate 70 76 Respiratory Rate 19 19 Blood Pressure 181/102 H Pulse Oximetry 97 97 Oxygen Delivery Method 12/22/22 07:15 12/22/22 07:15 12/22/22 07:30 Temperature 98.2 F Pulse Rate 68 Respiratory Rate 20 Blood Pressure 179/96 H 193/92 H Pulse Oximetry 98 Oxygen Delivery Method 12/22/22 07:30 12/22/22 07:45 12/22/22 07:45 Temperature 98.1 F 98.1 F Pulse Rate 77 73 Respiratory Rate 34 H 33 H Blood Pressure 171/95 H Pulse Oximetry 98 97 Oxygen Delivery Method 12/22/22 08:00 12/22/22 08:00 12/22/22 08:15 Temperature 98.1 F 98.2 F Pulse Rate 75 62 Respiratory Rate 46 H 33 H Blood Pressure 199/96 H Pulse Oximetry 99 99 Oxygen Delivery Method 12/22/22 08:16 12/22/22 08:16 12/22/22 08:25 Temperature 98.2 F Pulse Rate 61 Respiratory Rate 37 H Blood Pressure 110/68 83/54 L Pulse Oximetry 100 Oxygen Delivery Method Mechanical Ventilation 12/22/22 08:25 12/22/22 08:30 12/22/22 08:30 Temperature 98.4 F 98.6 F Pulse Rate 56 L 54 L Respiratory Rate 21 18 Blood Pressure 87/57 L Pulse Oximetry 99 99 Oxygen Delivery Method 12/22/22 08:45 12/22/22 08:45 12/22/22 08:46 Temperature 98.8 F Pulse Rate 50 L Respiratory Rate 18 Blood Pressure 91/59 L 92/60 Pulse Oximetry 99 Oxygen Delivery Method 12/22/22 08:46 12/22/22 09:00 12/22/22 09:00 Temperature 98.8 F 98.8 F Pulse Rate 50 L 49 L Respiratory Rate 18 18 Blood Pressure 101/63 Pulse Oximetry 100 99 Oxygen Delivery Method 12/22/22 09:15 12/22/22 09:15 12/22/22 09:30 Temperature 98.4 F Pulse Rate 48 L Respiratory Rate 18 Blood Pressure 115/71 119/73 Pulse Oximetry 99 Oxygen Delivery Method 12/22/22 09:30 12/22/22 09:45 12/22/22 09:45 Temperature 98.2 F 98.2 F Pulse Rate 49 L 50 L Respiratory Rate 18 18 Blood Pressure 118/72 Pulse Oximetry 99 99 Oxygen Delivery Method 12/22/22 10:00 12/22/22 10:00 12/22/22 10:15 Temperature 98.1 F Pulse Rate 51 L Respiratory Rate 18 Blood Pressure 109/67 119/73 Pulse Oximetry 99 Oxygen Delivery Method 12/22/22 10:15 12/22/22 10:30 12/22/22 10:30 Temperature 98.1 F 98.1 F Pulse Rate 51 L 55 L Respiratory Rate 19 28 H Blood Pressure 146/81 H Pulse Oximetry 98 96 Oxygen Delivery Method Room Air Mechanical Ventilation 12/22/22 10:45 12/22/22 10:45 12/22/22 11:00 Temperature 98.1 F Pulse Rate 54 L Respiratory Rate 24 Blood Pressure 154/87 H 159/89 H Pulse Oximetry 97 Oxygen Delivery Method 12/22/22 11:00 12/22/22 11:15 12/22/22 11:15 Temperature 98.1 F 98.1 F Pulse Rate 56 L 56 L Respiratory Rate 18 28 H Blood Pressure 161/88 H Pulse Oximetry 97 97 Oxygen Delivery Method 12/22/22 11:30 12/22/22 11:30 12/22/22 11:45 Temperature 98.2 F Pulse Rate 57 L Respiratory Rate 23 Blood Pressure 162/98 H 155/89 H Pulse Oximetry 98 Oxygen Delivery Method 12/22/22 11:45 12/22/22 12:00 12/22/22 12:00 Temperature 98.2 F 98.4 F Pulse Rate 58 L 59 L Respiratory Rate 18 24 Blood Pressure 162/92 H Pulse Oximetry 98 99 Oxygen Delivery Method 12/22/22 12:15 12/22/22 12:18 12/22/22 12:18 Temperature 98.4 F 98.4 F Pulse Rate 69 62 Respiratory Rate 19 16 Blood Pressure 180/91 H Pulse Oximetry 99 99 Oxygen Delivery Method 12/22/22 12:30 12/22/22 12:30 12/22/22 13:37 Temperature 98.4 F 98.4 F Pulse Rate 59 L 56 L Respiratory Rate 26 H 18 Blood Pressure 158/84 H Pulse Oximetry 97 97 Oxygen Delivery Method 12/22/22 13:42 12/22/22 13:42 12/22/22 13:43 Temperature 98.4 F Pulse Rate 58 L Respiratory Rate 18 Blood Pressure 171/84 H 158/81 H Pulse Oximetry 98 Oxygen Delivery Method 12/22/22 13:43 12/22/22 13:45 Temperature 98.4 F 98.4 F Pulse Rate 58 L 58 L Respiratory Rate 18 18 Blood Pressure Pulse Oximetry 98 97 Oxygen Delivery Method Oxygen Delivery Method Room Air,Mechanical Ventilation Const Other: pt intubated and sedated on vent support, not opening eyes or foll commands Objective Labs 12/22/22 02:05 12/22/22 02:20 Labs: Laboratory Results - last 24 hr 12/22/22 12/22/22 12/22/22 02:05 02:05 02:18 WBC 8.5 RBC 4.17 L Hgb 13.9 Hct 39.8 L MCV 95.5 MCH 33.4 MCHC 34.9 RDW 12.9 Plt Count 219 Neut % (Auto) 64.2 Lymph % (Auto) 24.1 L [place] % (Auto) 9.3 Eos % (Auto) 1.0 L Baso % (Auto) 1.4 Neut # (Auto) 5500 Lymph # (Auto) 2100 [place] # (Auto) 800 Eos # (Auto) 100 Baso # (Auto) 100 ABG pH ABG pCO2 ABG pO2 ABG HCO3 ABG Total CO2 ABG O2 Saturation ABG Base Excess VBG pH VBG pCO2 VBG pO2 VBG HCO3 VBG Total CO2 VBG O2 Saturation VBG Base Excess FiO2 Sodium Potassium Chloride Carbon Dioxide BUN Creatinine Estimated GFR BUN/Creatinine Ratio Glucose Lactate 2.0 Calcium Magnesium Total Bilirubin Conjugated Bilirubin Unconjugated Bilirubin AST ALT Alkaline Phosphatase Troponin I Total Protein Albumin Globulin Albumin/Globulin Ratio Lipase Procalcitonin TSH Urine Color Urine Appearance Urine pH Ur Specific [place] Urine Protein Urine Glucose (UA) Urine Ketones Urine Occult Blood Urine Nitrate Urine Bilirubin Urine Urobilinogen Ur Leukocyte Esterase Urine RBC Urine WBC Urine Bacteria Ur Culture Indicated? Micro UA Comment Salicylates U Opiates 300ng/mL cut Negative Ur Oxycodone Screen Negative Urine Methadone Screen Negative Acetaminophen Ur Barbiturates Screen Negative U Tricyclic Antidepress Negative Ur Phencyclidine Scrn Negative Ur Amphetamines Screen Negative U Methamphetamines Scrn Negative Ur MDMA Scrn (Ecstasy) Negative U Benzodiazepines Scrn Negative Urine Cocaine Screen Negative U Marijuana (THC) Screen Positive H Ethyl Alcohol Chlamy pneumoniae PCR Adenovirus (PCR) B. pertussis DNA (PCR) B.parapertussis DNA PCR Coronavirus OC43 (PCR) Coronavirus HKU1 (PCR) Coronavirus 229E (PCR) SARS-CoV-2 (PCR) Coronavirus NL63 (PCR) Human Metapneumovir PCR Influenza Type A (PCR) Influenza Type B (PCR) M. pneumoniae (PCR) Parainfluenza 1 (PCR) Parainfluenza 2 (PCR) Parainfluenza 3 (PCR) Parainfluenza 4 (PCR) RSV (PCR) Entero/Rhino (PCR) 12/22/22 12/22/22 12/22/22 02:18 02:20 02:50 WBC RBC Hgb Hct MCV MCH MCHC RDW Plt Count Neut % (Auto) Lymph % (Auto) [place] % (Auto) Eos % (Auto) Baso % (Auto) Neut # (Auto) Lymph # (Auto) [place] # (Auto) Eos # (Auto) Baso # (Auto) ABG pH ABG pCO2 ABG pO2 ABG HCO3 ABG Total CO2 ABG O2 Saturation ABG Base Excess VBG pH VBG pCO2 VBG pO2 VBG HCO3 VBG Total CO2 VBG O2 Saturation VBG Base Excess FiO2 Sodium 131 L Potassium 3.8 Chloride 99 Carbon Dioxide 25 BUN 6 L Creatinine 0.49 L Estimated GFR > 60 BUN/Creatinine Ratio 12.2 Glucose 128 H Lactate Calcium 8.0 L Magnesium 2.6 H Total Bilirubin 0.4 Conjugated Bilirubin 0.0 Unconjugated Bilirubin 0.1 AST 30 ALT 19 Alkaline Phosphatase 112 Troponin I < 0.012 Total Protein 6.6 Albumin 4.0 Globulin 2.6 Albumin/Globulin Ratio 1.5 Lipase 52 Procalcitonin 0.05 TSH Urine Color Yellow Urine Appearance Clear Urine pH 8.0 Ur Specific [place] 1.010 Urine Protein Negative Urine Glucose (UA) Negative Urine Ketones Negative Urine Occult Blood Negative Urine Nitrate Negative Urine Bilirubin Negative Urine Urobilinogen 0.2 Ur Leukocyte Esterase Negative Urine RBC None seen Urine WBC Not Reportable Urine Bacteria None seen Ur Culture Indicated? Cult not indicated Micro UA Comment * Salicylates < 1.0 U Opiates 300ng/mL cut Ur Oxycodone Screen Urine Methadone Screen Acetaminophen < 10 Ur Barbiturates Screen U Tricyclic Antidepress Ur Phencyclidine Scrn Ur Amphetamines Screen U Methamphetamines Scrn Ur MDMA Scrn (Ecstasy) U Benzodiazepines Scrn Urine Cocaine Screen U Marijuana (THC) Screen Ethyl Alcohol 79 H Chlamy pneumoniae PCR Adenovirus (PCR) B. pertussis DNA (PCR) B.parapertussis DNA PCR Coronavirus OC43 (PCR) Coronavirus HKU1 (PCR) Coronavirus 229E (PCR) SARS-CoV-2 (PCR) Coronavirus NL63 (PCR) Human Metapneumovir PCR Influenza Type A (PCR) Influenza Type B (PCR) M. pneumoniae (PCR) Parainfluenza 1 (PCR) Parainfluenza 2 (PCR) Parainfluenza 3 (PCR) Parainfluenza 4 (PCR) RSV (PCR) Entero/Rhino (PCR) 12/22/22 12/22/22 12/22/22 02:50 05:06 05:25 WBC RBC Hgb Hct MCV MCH MCHC RDW Plt Count Neut % (Auto) Lymph % (Auto) [place] % (Auto) Eos % (Auto) Baso % (Auto) Neut # (Auto) Lymph # (Auto) [place] # (Auto) Eos # (Auto) Baso # (Auto) ABG pH ABG pCO2 ABG pO2 ABG HCO3 ABG Total CO2 ABG O2 Saturation ABG Base Excess VBG pH 7.38 VBG pCO2 46.4 VBG pO2 41 VBG HCO3 27 VBG Total CO2 29 VBG O2 Saturation 75 VBG Base Excess 2.0 FiO2 40 Sodium Potassium Chloride Carbon Dioxide BUN Creatinine Estimated GFR BUN/Creatinine Ratio Glucose Lactate Calcium Magnesium Total Bilirubin Conjugated Bilirubin Unconjugated Bilirubin AST ALT Alkaline Phosphatase Troponin I Total Protein Albumin Globulin Albumin/Globulin Ratio Lipase Procalcitonin TSH 0.279 L Urine Color Urine Appearance Urine pH Ur Specific [place] Urine Protein Urine Glucose (UA) Urine Ketones Urine Occult Blood Urine Nitrate Urine Bilirubin Urine Urobilinogen Ur Leukocyte Esterase Urine RBC Urine WBC Urine Bacteria Ur Culture Indicated? Micro UA Comment Salicylates U Opiates 300ng/mL cut Ur Oxycodone Screen Urine Methadone Screen Acetaminophen Ur Barbiturates Screen U Tricyclic Antidepress Ur Phencyclidine Scrn Ur Amphetamines Screen U Methamphetamines Scrn Ur MDMA Scrn (Ecstasy) U Benzodiazepines Scrn Urine Cocaine Screen U Marijuana (THC) Screen Ethyl Alcohol Chlamy pneumoniae PCR Adenovirus (PCR) B. pertussis DNA (PCR) B.parapertussis DNA PCR Coronavirus OC43 (PCR) Coronavirus HKU1 (PCR) Coronavirus 229E (PCR) SARS-CoV-2 (PCR) Negative Coronavirus NL63 (PCR) Human Metapneumovir PCR Influenza Type A (PCR) Influenza Type B (PCR) M. pneumoniae (PCR) Parainfluenza 1 (PCR) Parainfluenza 2 (PCR) Parainfluenza 3 (PCR) Parainfluenza 4 (PCR) RSV (PCR) Entero/Rhino (PCR) 12/22/22 12/22/22 07:28 08:19 WBC RBC Hgb Hct MCV MCH MCHC RDW Plt Count Neut % (Auto) Lymph % (Auto) [place] % (Auto) Eos % (Auto) Baso % (Auto) Neut # (Auto) Lymph # (Auto) [place] # (Auto) Eos # (Auto) Baso # (Auto) ABG pH 7.36 ABG pCO2 46.8 H ABG pO2 91 ABG HCO3 26 ABG Total CO2 28 H ABG O2 Saturation 97 ABG Base Excess 1.0 VBG pH VBG pCO2 VBG pO2 VBG HCO3 VBG Total CO2 VBG O2 Saturation VBG Base Excess FiO2 60 Sodium Potassium Chloride Carbon Dioxide BUN Creatinine Estimated GFR BUN/Creatinine Ratio Glucose Lactate Calcium Magnesium Total Bilirubin Conjugated Bilirubin Unconjugated Bilirubin AST ALT Alkaline Phosphatase Troponin I Total Protein Albumin Globulin Albumin/Globulin Ratio Lipase Procalcitonin TSH Urine Color Urine Appearance Urine pH Ur Specific [place] Urine Protein Urine Glucose (UA) Urine Ketones Urine Occult Blood Urine Nitrate Urine Bilirubin Urine Urobilinogen Ur Leukocyte Esterase Urine RBC Urine WBC Urine Bacteria Ur Culture Indicated? Micro UA Comment Salicylates U Opiates 300ng/mL cut Ur Oxycodone Screen Urine Methadone Screen Acetaminophen Ur Barbiturates Screen U Tricyclic Antidepress Ur Phencyclidine Scrn Ur Amphetamines Screen U Methamphetamines Scrn Ur MDMA Scrn (Ecstasy) U Benzodiazepines Scrn Urine Cocaine Screen U Marijuana (THC) Screen Ethyl Alcohol Chlamy pneumoniae PCR Not detected Adenovirus (PCR) Not detected B. pertussis DNA (PCR) Not detected B.parapertussis DNA PCR Not detected Coronavirus OC43 (PCR) Not detected Coronavirus HKU1 (PCR) Not detected Coronavirus 229E (PCR) Not detected SARS-CoV-2 (PCR) Not detected Coronavirus NL63 (PCR) Not detected Human Metapneumovir PCR Not detected Influenza Type A (PCR) Not detected Influenza Type B (PCR) Not detected M. pneumoniae (PCR) Not detected Parainfluenza 1 (PCR) Not detected Parainfluenza 2 (PCR) Not detected Parainfluenza 3 (PCR) Not detected Parainfluenza 4 (PCR) Not detected RSV (PCR) Not detected Entero/Rhino (PCR) Not detected Assessment & Plan Assessment & Plan narrative: Acute respiratory failure. Drug overdose with Fentanyl. Altered mental state. History of alcohol abuse. Admit Pt to ICU for further management, evaluation, and treatment. Vent settings; PRVC 14 Tidal Volume 450 FIO2 50% PEEP of 5 to keep saturation of more than 92%. Sedation continue Precedex Fentanyl drip and Versed drip. Protonix 40mg IV once a day for GI prophylaxis. Lovenox 49mg subacute once a day for DVT prophylaxis. IV Banana bag at 100cc per hour. IV Levophed prn to keep MAP more than 65. IV Morphine 2mg IV q3 prn agitation. IV Ativan 2mg IV q3 prn agitation. No role for antibiotics presently. Monitor vitals, monitor Labs, monitor H&H. pt does have h/o pancreatis and svt in past. Time spent discussing Pt care with hospitalist, bedside nurse, using audio and video communication. Review of labs, medical records, previous notes, face to face encounter, ordering medications, diagnostic tests, documenting clinical information and electronic health record, independently interpreting results was more than 45 minutes.
[2022-12-22] MEDS: CHLORHEXIDINE GLUCONATE 15 ML CUP PO ×2 (14:17→18:56)
[2022-12-22] MEDS: PANTOPRAZOLE 40 MG VIAL IV (14:30)
[2022-12-22 14:52] LABS: MRSA (Nasal) PCR Not Detected (Not Detect)
[2022-12-22] MEDS: fentaNYL 1,000 MCG in DEXTROSE 5% IN WATER 230 ML 27 MCG IV (15:51)
[2022-12-22] MEDS: SODIUM CHLORIDE 0.9% FLUSH 10 ML IV ×3 (17:07→21:22)
[2022-12-22] MEDS: SODIUM CHLORIDE 0.9% 500 ML 21 ML IV (17:08)
--- NOTE | 2022-12-22 17:18 | PM.HP.1 ---
History of Present Illness History of Present Illness Date Patient Seen: 12/22/22 Chief complaint: Drug intoxication Narrative: 62-year-old gentleman with a long history of alcohol use disorder occasional THC and opiates presents by medics today after reports of an overdose.? It is unclear who actually called medics but patient states that he took some fentanyl gave himself Narcan and then called police.? He notes that he typically drinks 4 or 5 beers a day but on night of presentation had 2 pt of whiskey.? He was significantly agitated and combative in the ER. He was intubated and placed on ventilator as well as Precedex. He was admitted to ICU. Anthropology Instructor telemedicine was consulted. Patient History Medical History Alcohol abuse Alcoholic pancreatitis Amputation finger Back pain Chronic pancreatitis Fracture of finger, distal phalanx, open Fracture of finger, middle phalanx, open Onychomycosis Seizures Surgical History History of surgical amputation of finger Family & Social History Family History Mother Osteoarthritis Father Alcohol abuse Medical history unknown Social History: household members none Prior Living Arrangements Other Tobacco & Substance use: Tobacco type cigarettes Smoking Status Current every day smoker alcohol intake current alcohol intake frequency 3 or more drinks per day Substance Use Type marijuana,opiates Meds Home Medications and Allergies Allergies Allergy/AdvReac Type Severity Reaction Status Date / Time lactase [From DAIRY AID] Allergy Unknown STOMACH Verified 12/22/22 12:22 UPSET Review of Systems Review of Systems Narrative: Unable to obtain from the patient due to sedation and intubation. Exam Vital Signs (past 8 hours): - 12/22/22 09:30 12/22/22 09:30 12/22/22 09:45 Temperature 98.2 F Pulse Rate 49 L Respiratory Rate 18 Blood Pressure 119/73 118/72 Pulse Oximetry 99 Oxygen Delivery Method 12/22/22 09:45 12/22/22 10:00 12/22/22 10:00 Temperature 98.2 F 98.1 F Pulse Rate 50 L 51 L Respiratory Rate 18 18 Blood Pressure 109/67 Pulse Oximetry 99 99 Oxygen Delivery Method 12/22/22 10:15 12/22/22 10:15 12/22/22 10:30 Temperature 98.1 F Pulse Rate 51 L Respiratory Rate 19 Blood Pressure 119/73 146/81 H Pulse Oximetry 98 Oxygen Delivery Method 12/22/22 10:30 12/22/22 10:45 12/22/22 10:45 Temperature 98.1 F 98.1 F Pulse Rate 55 L 54 L Respiratory Rate 28 H 24 Blood Pressure 154/87 H Pulse Oximetry 96 97 Oxygen Delivery Method Room Air Mechanical Ventilation 12/22/22 11:00 12/22/22 11:00 12/22/22 11:15 Temperature 98.1 F Pulse Rate 56 L Respiratory Rate 18 Blood Pressure 159/89 H 161/88 H Pulse Oximetry 97 Oxygen Delivery Method 12/22/22 11:15 12/22/22 11:30 12/22/22 11:30 Temperature 98.1 F 98.2 F Pulse Rate 56 L 57 L Respiratory Rate 28 H 23 Blood Pressure 162/98 H Pulse Oximetry 97 98 Oxygen Delivery Method 12/22/22 11:45 12/22/22 11:45 12/22/22 12:00 Temperature 98.2 F Pulse Rate 58 L Respiratory Rate 18 Blood Pressure 155/89 H 162/92 H Pulse Oximetry 98 Oxygen Delivery Method 12/22/22 12:00 12/22/22 12:15 12/22/22 12:18 Temperature 98.4 F 98.4 F 98.4 F Pulse Rate 59 L 69 62 Respiratory Rate 24 19 16 Blood Pressure Pulse Oximetry 99 99 99 Oxygen Delivery Method 12/22/22 12:18 12/22/22 12:30 12/22/22 12:30 Temperature 98.4 F Pulse Rate 59 L Respiratory Rate 26 H Blood Pressure 180/91 H 158/84 H Pulse Oximetry 97 Oxygen Delivery Method 12/22/22 13:37 12/22/22 13:42 12/22/22 13:42 Temperature 98.4 F 98.4 F Pulse Rate 56 L 58 L Respiratory Rate 18 18 Blood Pressure 171/84 H Pulse Oximetry 97 98 Oxygen Delivery Method 12/22/22 13:43 12/22/22 13:43 12/22/22 13:45 Temperature 98.4 F 98.4 F Pulse Rate 58 L 58 L Respiratory Rate 18 18 Blood Pressure 158/81 H Pulse Oximetry 98 97 Oxygen Delivery Method 12/22/22 14:24 12/22/22 14:00 12/22/22 14:00 Temperature 98.4 F Pulse Rate 57 L Respiratory Rate 18 Blood Pressure 129/71 Pulse Oximetry 96 Oxygen Delivery Method Mechanical Ventilation 12/22/22 14:15 12/22/22 14:30 12/22/22 14:30 Temperature 98.4 F 98.6 F Pulse Rate 56 L 57 L Respiratory Rate 18 18 Blood Pressure 133/75 Pulse Oximetry 96 97 Oxygen Delivery Method 12/22/22 14:45 12/22/22 15:00 12/22/22 15:00 Temperature 98.6 F 98.6 F Pulse Rate 55 L 52 L Respiratory Rate 18 18 Blood Pressure 140/76 Pulse Oximetry 97 97 Oxygen Delivery Method 12/22/22 15:15 12/22/22 15:21 12/22/22 15:21 Temperature 98.6 F 98.6 F Pulse Rate 51 L 52 L Respiratory Rate 18 18 Blood Pressure 150/73 H Pulse Oximetry 96 97 Oxygen Delivery Method 12/22/22 15:30 12/22/22 15:30 12/22/22 15:45 Temperature 98.6 F 98.6 F Pulse Rate 53 L 52 L Respiratory Rate 18 18 Blood Pressure 137/71 Pulse Oximetry 96 97 Oxygen Delivery Method 12/22/22 16:00 12/22/22 16:00 Temperature 98.6 F Pulse Rate 52 L Respiratory Rate 18 Blood Pressure 137/72 Pulse Oximetry 97 Oxygen Delivery Method Oxygen Delivery Method Mechanical Ventilation Narrative Exam Narrative: General: Patient intubated and sedated and resting calmly, not fully arousable. HEENT:? Moist mucous membranes,? minor bilateral scleral erythema without icterus Respiratory:? Lungs are clear to auscultation, no wheezing no rales no rhonchi.? Full and symmetrical air movement. Intubated. Cardiac: ? mild tachycardia but otherwise Regular rate and rhythm no murmurs no bruits Abdomen:? Soft,? no ascites Skin: ? spider hemangiomas noted Neurologic: ? acute delirium on presentation needing sedation and intubation Extremities:? No? specific trauma, Psych:? agitated, intoxicated but currently is sedated Objective Labs 12/22/22 02:05 12/22/22 02:20 Labs: Laboratory Results - last 24 hr 12/22/22 12/22/22 12/22/22 02:05 02:05 02:18 WBC 8.5 RBC 4.17 L Hgb 13.9 Hct 39.8 L MCV 95.5 MCH 33.4 MCHC 34.9 RDW 12.9 Plt Count 219 Neut % (Auto) 64.2 Lymph % (Auto) 24.1 L [place] % (Auto) 9.3 Eos % (Auto) 1.0 L Baso % (Auto) 1.4 Neut # (Auto) 5500 Lymph # (Auto) 2100 [place] # (Auto) 800 Eos # (Auto) 100 Baso # (Auto) 100 ABG pH ABG pCO2 ABG pO2 ABG HCO3 ABG Total CO2 ABG O2 Saturation ABG Base Excess VBG pH VBG pCO2 VBG pO2 VBG HCO3 VBG Total CO2 VBG O2 Saturation VBG Base Excess FiO2 Sodium Potassium Chloride Carbon Dioxide BUN Creatinine Estimated GFR BUN/Creatinine Ratio Glucose Lactate 2.0 Calcium Magnesium Total Bilirubin Conjugated Bilirubin Unconjugated Bilirubin AST ALT Alkaline Phosphatase Troponin I Total Protein Albumin Globulin Albumin/Globulin Ratio Lipase Procalcitonin TSH Urine Color Urine Appearance Urine pH Ur Specific [place] Urine Protein Urine Glucose (UA) Urine Ketones Urine Occult Blood Urine Nitrate Urine Bilirubin Urine Urobilinogen Ur Leukocyte Esterase Urine RBC Urine WBC Urine Bacteria Ur Culture Indicated? Micro UA Comment Nasal Screen MRSA (PCR) Salicylates U Opiates 300ng/mL cut Negative Ur Oxycodone Screen Negative Urine Methadone Screen Negative Acetaminophen Ur Barbiturates Screen Negative U Tricyclic Antidepress Negative Ur Phencyclidine Scrn Negative Ur Amphetamines Screen Negative U Methamphetamines Scrn Negative Ur MDMA Scrn (Ecstasy) Negative U Benzodiazepines Scrn Negative Urine Cocaine Screen Negative U Marijuana (THC) Screen Positive H Ethyl Alcohol Chlamy pneumoniae PCR Adenovirus (PCR) B. pertussis DNA (PCR) B.parapertussis DNA PCR Coronavirus OC43 (PCR) Coronavirus HKU1 (PCR) Coronavirus 229E (PCR) SARS-CoV-2 (PCR) Coronavirus NL63 (PCR) Human Metapneumovir PCR Influenza Type A (PCR) Influenza Type B (PCR) M. pneumoniae (PCR) Parainfluenza 1 (PCR) Parainfluenza 2 (PCR) Parainfluenza 3 (PCR) Parainfluenza 4 (PCR) RSV (PCR) Entero/Rhino (PCR) 12/22/22 12/22/22 12/22/22 02:18 02:20 02:50 WBC RBC Hgb Hct MCV MCH MCHC RDW Plt Count Neut % (Auto) Lymph % (Auto) [place] % (Auto) Eos % (Auto) Baso % (Auto) Neut # (Auto) Lymph # (Auto) [place] # (Auto) Eos # (Auto) Baso # (Auto) ABG pH ABG pCO2 ABG pO2 ABG HCO3 ABG Total CO2 ABG O2 Saturation ABG Base Excess VBG pH VBG pCO2 VBG pO2 VBG HCO3 VBG Total CO2 VBG O2 Saturation VBG Base Excess FiO2 Sodium 131 L Potassium 3.8 Chloride 99 Carbon Dioxide 25 BUN 6 L Creatinine 0.49 L Estimated GFR > 60 BUN/Creatinine Ratio 12.2 Glucose 128 H Lactate Calcium 8.0 L Magnesium 2.6 H Total Bilirubin 0.4 Conjugated Bilirubin 0.0 Unconjugated Bilirubin 0.1 AST 30 ALT 19 Alkaline Phosphatase 112 Troponin I < 0.012 Total Protein 6.6 Albumin 4.0 Globulin 2.6 Albumin/Globulin Ratio 1.5 Lipase 52 Procalcitonin 0.05 TSH Urine Color Yellow Urine Appearance Clear Urine pH 8.0 Ur Specific [place] 1.010 Urine Protein Negative Urine Glucose (UA) Negative Urine Ketones Negative Urine Occult Blood Negative Urine Nitrate Negative Urine Bilirubin Negative Urine Urobilinogen 0.2 Ur Leukocyte Esterase Negative Urine RBC None seen Urine WBC Not Reportable Urine Bacteria None seen Ur Culture Indicated? Cult not indicated Micro UA Comment * Nasal Screen MRSA (PCR) Salicylates < 1.0 U Opiates 300ng/mL cut Ur Oxycodone Screen Urine Methadone Screen Acetaminophen < 10 Ur Barbiturates Screen U Tricyclic Antidepress Ur Phencyclidine Scrn Ur Amphetamines Screen U Methamphetamines Scrn Ur MDMA Scrn (Ecstasy) U Benzodiazepines Scrn Urine Cocaine Screen U Marijuana (THC) Screen Ethyl Alcohol 79 H Chlamy pneumoniae PCR Adenovirus (PCR) B. pertussis DNA (PCR) B.parapertussis DNA PCR Coronavirus OC43 (PCR) Coronavirus HKU1 (PCR) Coronavirus 229E (PCR) SARS-CoV-2 (PCR) Coronavirus NL63 (PCR) Human Metapneumovir PCR Influenza Type A (PCR) Influenza Type B (PCR) M. pneumoniae (PCR) Parainfluenza 1 (PCR) Parainfluenza 2 (PCR) Parainfluenza 3 (PCR) Parainfluenza 4 (PCR) RSV (PCR) Entero/Rhino (PCR) 12/22/22 12/22/22 12/22/22 02:50 05:06 05:25 WBC RBC Hgb Hct MCV MCH MCHC RDW Plt Count Neut % (Auto) Lymph % (Auto) [place] % (Auto) Eos % (Auto) Baso % (Auto) Neut # (Auto) Lymph # (Auto) [place] # (Auto) Eos # (Auto) Baso # (Auto) ABG pH ABG pCO2 ABG pO2 ABG HCO3 ABG Total CO2 ABG O2 Saturation ABG Base Excess VBG pH 7.38 VBG pCO2 46.4 VBG pO2 41 VBG HCO3 27 VBG Total CO2 29 VBG O2 Saturation 75 VBG Base Excess 2.0 FiO2 40 Sodium Potassium Chloride Carbon Dioxide BUN Creatinine Estimated GFR BUN/Creatinine Ratio Glucose Lactate Calcium Magnesium Total Bilirubin Conjugated Bilirubin Unconjugated Bilirubin AST ALT Alkaline Phosphatase Troponin I Total Protein Albumin Globulin Albumin/Globulin Ratio Lipase Procalcitonin TSH 0.279 L Urine Color Urine Appearance Urine pH Ur Specific [place] Urine Protein Urine Glucose (UA) Urine Ketones Urine Occult Blood Urine Nitrate Urine Bilirubin Urine Urobilinogen Ur Leukocyte Esterase Urine RBC Urine WBC Urine Bacteria Ur Culture Indicated? Micro UA Comment Nasal Screen MRSA (PCR) Salicylates U Opiates 300ng/mL cut Ur Oxycodone Screen Urine Methadone Screen Acetaminophen Ur Barbiturates Screen U Tricyclic Antidepress Ur Phencyclidine Scrn Ur Amphetamines Screen U Methamphetamines Scrn Ur MDMA Scrn (Ecstasy) U Benzodiazepines Scrn Urine Cocaine Screen U Marijuana (THC) Screen Ethyl Alcohol Chlamy pneumoniae PCR Adenovirus (PCR) B. pertussis DNA (PCR) B.parapertussis DNA PCR Coronavirus OC43 (PCR) Coronavirus HKU1 (PCR) Coronavirus 229E (PCR) SARS-CoV-2 (PCR) Negative Coronavirus NL63 (PCR) Human Metapneumovir PCR Influenza Type A (PCR) Influenza Type B (PCR) M. pneumoniae (PCR) Parainfluenza 1 (PCR) Parainfluenza 2 (PCR) Parainfluenza 3 (PCR) Parainfluenza 4 (PCR) RSV (PCR) Entero/Rhino (PCR) 12/22/22 12/22/22 12/22/22 07:28 08:19 13:20 WBC RBC Hgb Hct MCV MCH MCHC RDW Plt Count Neut % (Auto) Lymph % (Auto) [place] % (Auto) Eos % (Auto) Baso % (Auto) Neut # (Auto) Lymph # (Auto) [place] # (Auto) Eos # (Auto) Baso # (Auto) ABG pH 7.36 ABG pCO2 46.8 H ABG pO2 91 ABG HCO3 26 ABG Total CO2 28 H ABG O2 Saturation 97 ABG Base Excess 1.0 VBG pH VBG pCO2 VBG pO2 VBG HCO3 VBG Total CO2 VBG O2 Saturation VBG Base Excess FiO2 60 Sodium Potassium Chloride Carbon Dioxide BUN Creatinine Estimated GFR BUN/Creatinine Ratio Glucose Lactate Calcium Magnesium Total Bilirubin Conjugated Bilirubin Unconjugated Bilirubin AST ALT Alkaline Phosphatase Troponin I Total Protein Albumin Globulin Albumin/Globulin Ratio Lipase Procalcitonin TSH Urine Color Urine Appearance Urine pH Ur Specific [place] Urine Protein Urine Glucose (UA) Urine Ketones Urine Occult Blood Urine Nitrate Urine Bilirubin Urine Urobilinogen Ur Leukocyte Esterase Urine RBC Urine WBC Urine Bacteria Ur Culture Indicated? Micro UA Comment Nasal Screen MRSA (PCR) Not detected Salicylates U Opiates 300ng/mL cut Ur Oxycodone Screen Urine Methadone Screen Acetaminophen Ur Barbiturates Screen U Tricyclic Antidepress Ur Phencyclidine Scrn Ur Amphetamines Screen U Methamphetamines Scrn Ur MDMA Scrn (Ecstasy) U Benzodiazepines Scrn Urine Cocaine Screen U Marijuana (THC) Screen Ethyl Alcohol Chlamy pneumoniae PCR Not detected Adenovirus (PCR) Not detected B. pertussis DNA (PCR) Not detected B.parapertussis DNA PCR Not detected Coronavirus OC43 (PCR) Not detected Coronavirus HKU1 (PCR) Not detected Coronavirus 229E (PCR) Not detected SARS-CoV-2 (PCR) Not detected Coronavirus NL63 (PCR) Not detected Human Metapneumovir PCR Not detected Influenza Type A (PCR) Not detected Influenza Type B (PCR) Not detected M. pneumoniae (PCR) Not detected Parainfluenza 1 (PCR) Not detected Parainfluenza 2 (PCR) Not detected Parainfluenza 3 (PCR) Not detected Parainfluenza 4 (PCR) Not detected RSV (PCR) Not detected Entero/Rhino (PCR) Not detected Assessment & Plan Assessment & Plan narrative: 1. Poly medication abuse in conjunction with alcohol abuse. Agitated and delirious on presentation requiring intubation and sedation with Precedex. Telemedicine elevator runner managing. 2. Drug screen positive for marijuana and alcohol. Continue to manage alcohol withdrawal initially now with Precedex to settle. 3. History of chronic pancreatitis. Lipase normal. 4. Low TSH. Due to lab problems currently unable to assess further thyroid tests at this time. Monitor TSH to clarify is truly low. DVT prophylaxis: Enoxaparin 40 mg subQ daily GI prophylaxis: IV daily PPI Patient is full code -this is status from previous admission, unable to ask patient at this time. Mother is primary contact lens inspector, power of process improvement analyst, requested call as needed with update -this is status of previous admission and will presume it is similar on this admission. Unable to ask patient. Patient admitted as inpatient due to the complexity of the medical care as well as the expectation that the patient will be in hospital greater than 2 midnights. COVID-19 COVID-19 status: Negative Scores Wells' Criteria for PE Immobilization at least 3 days or surg in previous 4 weeks: Yes Quality VTE Deep Vein Thrombosis/Pulmonary Embolism Present on Admission: No MIPS - Admit I confirm the patient?s Advance Care Plan is present, Code status is documented, Surrogate decision maker is in patient?s record [If Yes, STOP here]: Yes MIPS - Meds 'Current medications' to include all prescriptions, [id number] products, herbals, cannabis/cannabidiol products, and vitamin/mineral/dietary (nutritional) supplements. I did NOT confirm, update, or review the patient?s current list of medications today.: Yes
--- NOTE | 2022-12-22 18:26 | PC.NURSE ---
Day shift: Contacted Tele ICU regarding low urinary output. Dr. Molina notified. Awaiting new orders.
--- NOTE | 2022-12-22 20:46 | PM.ICURNDS ---
- :: This patient was seen via real time interactive two-way audiovisual telecommunication. patient remains intubated and sedated with precedex, fentanyl and versed. currntly synchronous with the vent, and adequate RASS. plan to trend abgm, current vent setting 45% PEEP 5 start TF, d/c IVF, trend labs, will follow
[2022-12-22] MEDS: dexmedeTOMIDine in 0.9 % NaCL 400 MCG/100 ML PLAST..BAG 18.175 MCG IV (21:21)
--- NOTE | 2022-12-22 21:28 | PC.NURSE ---
Addendum entered by Valarie Valdes R.N. 12/23/22 06:20: Patient awakening a few more times, each time unable to follow commands or open eyes. Patient medicated to keep calm and allow for ventilator to work. Addendum entered by Valarie Valdes R.N. 12/23/22 02:16: Pt awakening again, and not responding to verbal commands. thrashing side to side in the bed, medicated with ativan iv and slowly patient falling back to sleep. Patient monitored closely. Original Note: Patient awakening, and becoming very combative. Patient reassured and kept safe from environment and himself. Precedex increased to 1 and given bolus of fentanyl. Patient slowly calming down, restraints remain in place.
[2022-12-22] MEDS: MIDAZOLAM 50 MG in DEXTROSE 5 % IN WATER 40 ML 7 MG IV (23:07)
[2022-12-23] VITALS (69 sets, daily range): BP systolic 122–177; BP diastolic 69–86; PULSE 44–72; RESP 18–98; TEMP 36.9–38; O2SAT 94–100
[2022-12-23] MEDS: CHLORHEXIDINE GLUCONATE 15 ML CUP PO ×2 (00:07→05:33)
[2022-12-23] MEDS: fentaNYL 1,000 MCG in DEXTROSE 5% IN WATER 230 ML 27 MCG IV (00:57)
[2022-12-23] MEDS: LORazepam 2 MG/ML INJ IV (01:56)
[2022-12-23] MEDS: dexmedeTOMIDine in 0.9 % NaCL 400 MCG/100 ML PLAST..BAG 18.175 MCG IV ×2 (02:38→06:37)
[2022-12-23 04:40] LABS: INR 1.1 (0.9-1.3); Prothrombin Time 12.3 SECONDS (10.1-12.7)
[2022-12-23 04:42] LABS: Add Manual Diff / Slide Review NO; Basophils Absolute Auto 100 /uL (0-100); Basophils Percent Auto 0.5 % (0-2); Eosinophils Absolute Auto 100 /uL (0-450); Eosinophils Percent Auto 0.6 % (2-4); Hematocrit 38.5 % (41-53); Hemoglobin 13.2 g/dL (13.5-17.5); Lymphocytes Absolute Auto 2500 /uL (1100-4500); Lymphocytes Percent Auto 20.5 % (25-40); Mean Corpuscular HGB Conc 34.3 % (30-36); Mean Corpuscular Hemoglobin 32.7 PG (26-34); Mean Corpuscular Volume 95.4 fL (80-100); Monocytes Absolute Auto 1300 /uL (0-900); Monocytes Percent Auto 10.8 % (3-14); Neutrophils Absolute Auto 8200 /uL (1500-7000); Neutrophils Percent Auto 67.6 % (50-75); Platelet Count 138 X10^3/uL (150-400); Red Blood Cell Count 4.03 X10^6/uL (4.5-5.9); White Blood Cell Count 12.1 X10^3/uL (4.5-11.0)
[2022-12-23 04:47] LABS: Alanine Aminotransferase 16 IU/L (<50); Albumin 3.4 g/dL (3.5-5.0); Albumin Globulin Ratio 1.4 (1.0-2.8); Alkaline Phosphatase 102 U/L (38-126); Aspartate Aminotransferase 21 IU/L (17-59); BUN Creatinine Ratio 7.1 (6-22); Bilirubin Total 1.1 mg/dL (0.2-1.3); Blood Urea Nitrogen 4 mg/dL (9-20); Calcium 8.1 mg/dL (8.4-10.2); Carbon Dioxide 24 mmol/L (22-32); Chloride 102 mmol/L (98-107); Estimated Glomerular Filt Rate > 60 mL/min (>60); Globulin 2.5 g/dL (1.7-4.1); Glucose 162 mg/dL (80-110); HEMOLYSIS < 15 (0-50); Magnesium 1.8 mg/dL (1.6-2.3); Potassium 3.6 mmol/L (3.4-5.1); Sodium 133 mmol/L (137-145); Total Protein 5.9 g/dL (6.3-8.2)
[2022-12-23] MEDS: DEXTROSE 5%-0.9% NS 1,000 ML 100 ML IV (05:05)
[2022-12-23 05:15] LABS: Thyroid Stimulating Hormone 1.79 uIU/mL (0.47-4.68)
[2022-12-23] MEDS: MIDAZOLAM 50 MG in DEXTROSE 5 % IN WATER 40 ML 7 MG IV (05:39)
--- NOTE | 2022-12-23 07:00 | DI.RAD.S_ITS ---
PROCEDURE: XR CHEST 1V INDICATIONS: intubation TECHNIQUE: One view of the chest was acquired. COMPARISON: [facility], CR, XR CHEST 1V, 12/22/2022, 5:58. [facility], CR, XR CHEST 1V, 12/22/2022, 4:15. FINDINGS: Surgical changes and devices: Endotracheal tube tip projects over the midthoracic trachea. Gastric tube side port projects over the GE junction. Lungs and pleura: Lungs are clear. No pleural effusions or pneumothorax. Mediastinum: Mediastinal contours appear normal. Heart size is normal. Bones and chest wall: No suspicious bony lesions. Overlying soft tissues appear unremarkable. IMPRESSION: Appropriately positioned endotracheal tube. Gastric tube side port projects over the GE junction. Recommend advancement 5 centimeters. Dictated by: Morales Murillo M.D. on 12/23/2022 at 9:00 Approved by: Morales Murillo M.D. on 12/23/2022 at 9:01
[2022-12-23 07:47] LABS: pH ABG 7.45 (7.35-7.45)
[2022-12-23 07:48] LABS: Fractionated Inspired Oxygen 30; HCO3 ABG 25 mmol/L (23-27); Oxygen Saturation ABG 96 % (95-100); PCO2 ABG 35.8 mmHg (35-45); PO2 ABG 77 mmHg (80-100); TCO2 ABG 26 mmol/L (23-27)
[2022-12-23] MEDS: propofoL 1,000 MG/100 ML VIAL 15.6 MG IV (09:00)
[2022-12-23] MEDS: ENOXAPARIN 40 MG/0.4 ML SYRINGE SUBCUT (09:28)
[2022-12-23] MEDS: PANTOPRAZOLE 40 MG VIAL IV (09:28)
[2022-12-23] MEDS: SODIUM CHLORIDE 0.9% FLUSH 10 ML IV (09:30)
--- NOTE | 2022-12-23 10:11 | PM.PN.EICU ---
Subjective Subjective IF CAMERA ACTIVATED, patient seen via real-time interactive audiovisual communication: Camera activated Consent obtained for tele-corporate controller care: Yes Patient Location: ICU Provider location (State): [place] Other participants/roles: RN, RT, Pharmacy, Dr. Chao Interval history: Overnight, patient on Fentanyl 150, Precedex 1 and Versed 9. RN noted when sedatives were lowered patient became acutely agitated. HR in the mid-40s on Precedex, BP is WNL. Current Medications Current Medications Medications: Visit Medications (administered) Generic Name Dose Route Start Last Admin Trade Name Freq PRN Reason Stop Dose Admin Chlorhexidine Gluconate 15 ml 12/22/22 12:00 12/23/22 05:33 Chlorhexidine Gluconate 15 Ml Cup PO 15 ml Q6HR ELEAZAR Administration Enoxaparin Sodium 40 mg 12/23/22 09:00 12/23/22 09:28 Enoxaparin 40 Mg/0.4 Ml Syringe SUBCUT 40 mg DAILY ELEAZAR Administration Thiamine HCl 100 mg/ Sodium 101 mls @ 404 mls/hr 12/22/22 09:00 12/22/22 11:00 Chloride IV Infused DAILY ELEAZAR Infusion Dextrose/Sodium Chloride 1,000 mls @ 100 mls/hr 12/22/22 07:00 12/23/22 05:05 Dextrose 5%-0.9% Ns IV 100 mls/hr CONT ELEAZAR Administration dexmedeTOMIDine in 0.9 % NaCL 400 mcg in 100 mls @ 3.635 mls/hr 12/22/22 07:00 12/23/22 09:25 Precedex IV 0.6 mcg/kg/hr TITRATE ELEAZAR 10.905 mls/hr Titration Protocol 0.2 MCG/KG/HR Fentanyl 1,000 mcg/ Dextrose 250 mls @ 12.6 mls/hr 12/22/22 14:00 12/23/22 09:25 IV 0.4 mcg/kg/hr TITRATE ELEAZAR 7.2 mls/hr Titration Protocol 0.7 MCG/KG/HR Propofol 1,000 mg in 100 mls @ 1.95 mls/hr 12/23/22 08:00 12/23/22 09:00 Propofol IV 40 mcg/kg/min TITRATE ELEAZAR 15.6 mls/hr Administration Protocol 5 MCG/KG/MIN Lorazepam 0 mg 12/22/22 14:08 12/23/22 01:56 Lorazepam 2 Mg/Ml Inj IV 2 mg CIWAPRN PRN Administration Alcohol Withdrawal Protocol Pantoprazole Sodium 40 mg 12/23/22 09:00 12/23/22 09:28 Pantoprazole 40 Mg Vial IV 40 mg DAILY ELEAZAR Administration Sodium Chloride 10 ml 12/22/22 16:58 12/22/22 21:22 Sodium Chloride 0.9% Flush IV 10 ml PRN PRN Administration Flush Sodium Chloride 10 ml 12/22/22 21:00 12/23/22 09:30 Sodium Chloride 0.9% Flush IV 10 ml BID ELEAZAR Administration Objective Ventilator Parameters: Ventilator Settings FiO2 30 RT Vent Frequency 18 Ventilator Tidal Volume 500 Exhaled Vt/kg IBW 8 Positive End Expiratory 5 Pressure Inspiratory Phase Time 0.9 I:E Ratio 1:2.7 Patient Position HOB >= 30 degrees Labs 12/23/22 03:59 12/23/22 03:59 Labs: Laboratory Results - last 24 hr 12/22/22 12/23/22 12/23/22 13:20 03:59 03:59 WBC 12.1 H RBC 4.03 L Hgb 13.2 L Hct 38.5 L MCV 95.4 MCH 32.7 MCHC 34.3 RDW 13.0 Plt Count 138 L Neut % (Auto) 67.6 Lymph % (Auto) 20.5 L [place] % (Auto) 10.8 Eos % (Auto) 0.6 L Baso % (Auto) 0.5 Neut # (Auto) 8200 H Lymph # (Auto) 2500 [place] # (Auto) 1300 H Eos # (Auto) 100 Baso # (Auto) 100 PT 12.3 INR 1.1 ABG pH ABG pCO2 ABG pO2 ABG HCO3 ABG Total CO2 ABG O2 Saturation ABG Base Excess FiO2 Sodium Potassium Chloride Carbon Dioxide BUN Creatinine Estimated GFR BUN/Creatinine Ratio Glucose Calcium Magnesium Total Bilirubin AST ALT Alkaline Phosphatase Total Protein Albumin Globulin Albumin/Globulin Ratio TSH Nasal Screen MRSA (PCR) Not detected 12/23/22 12/23/22 12/23/22 03:59 03:59 07:24 WBC RBC Hgb Hct MCV MCH MCHC RDW Plt Count Neut % (Auto) Lymph % (Auto) [place] % (Auto) Eos % (Auto) Baso % (Auto) Neut # (Auto) Lymph # (Auto) [place] # (Auto) Eos # (Auto) Baso # (Auto) PT INR ABG pH 7.45 ABG pCO2 35.8 ABG pO2 77 L ABG HCO3 25 ABG Total CO2 26 ABG O2 Saturation 96 ABG Base Excess 1.0 FiO2 30 Sodium 133 L Potassium 3.6 Chloride 102 Carbon Dioxide 24 BUN 4 L Creatinine 0.56 L Estimated GFR > 60 BUN/Creatinine Ratio 7.1 Glucose 162 H Calcium 8.1 L Magnesium 1.8 Total Bilirubin 1.1 AST 21 ALT 16 Alkaline Phosphatase 102 Total Protein 5.9 L Albumin 3.4 L Globulin 2.5 Albumin/Globulin Ratio 1.4 TSH 1.79 D Nasal Screen MRSA (PCR) Exam Vital Signs (past 8 hours): - 12/23/22 02:30 12/23/22 02:30 12/23/22 03:00 Temperature 100.2 F H Pulse Rate 50 L Respiratory Rate 18 Blood Pressure 166/85 H 166/84 H Pulse Oximetry 99 Oxygen Delivery Method 12/23/22 03:00 12/23/22 03:30 12/23/22 03:30 Temperature 100.2 F H 100.2 F H Pulse Rate 51 L 51 L Respiratory Rate 18 18 Blood Pressure 171/84 H Pulse Oximetry 99 99 Oxygen Delivery Method 12/23/22 04:00 12/23/22 04:00 12/23/22 05:00 Temperature 100.4 F H Pulse Rate 51 L Respiratory Rate 18 Blood Pressure 167/82 H 160/83 H Pulse Oximetry 98 Oxygen Delivery Method 12/23/22 05:00 12/23/22 05:44 12/23/22 06:00 Temperature 100.2 F H 100.2 F H Pulse Rate 59 L 49 L Respiratory Rate 24 18 Blood Pressure 164/78 H Pulse Oximetry 99 98 Oxygen Delivery Method 12/23/22 06:00 12/23/22 06:07 12/23/22 06:15 Temperature 100.2 F H 100.2 F H 100.2 F H Pulse Rate 48 L 48 L 48 L Respiratory Rate 18 18 18 Blood Pressure Pulse Oximetry 98 98 98 Oxygen Delivery Method 12/23/22 06:30 12/23/22 06:45 12/23/22 07:00 Temperature 100.0 F H 100.0 F H Pulse Rate 48 L 48 L Respiratory Rate 18 18 Blood Pressure 154/78 H Pulse Oximetry 98 98 Oxygen Delivery Method 12/23/22 07:00 12/23/22 07:15 12/23/22 07:30 Temperature 99.9 F H 99.9 F H 99.7 F H Pulse Rate 48 L 47 L 49 L Respiratory Rate 18 18 18 Blood Pressure Pulse Oximetry 97 98 98 Oxygen Delivery Method 12/23/22 07:45 12/23/22 07:00 12/23/22 07:40 Temperature 99.7 F H 99.7 F H Pulse Rate 48 L Respiratory Rate 18 Blood Pressure Pulse Oximetry 98 Oxygen Delivery Method Mechanical Ventilation Oxygen Delivery Method Mechanical Ventilation Narrative Exam Narrative: Sedated, intubated. Current vent settings: 500, 18, 5, 30%. HR in the high 40s, otherwise VS are WNL Quality TeleICU VTE Deep Vein Thrombosis/Pulmonary Embolism Present on Admission: No Assessment & Plan Assessment and plan (1) Acute delirium: Status: Acute (2) Overdose: Qualifiers: Encounter type: initial encounter Injury intent: undetermined intent Qualified Code(s): T50.904A - Poisoning by unspecified drugs, medicaments and biological substances, undetermined, initial encounter Status: Acute (3) Respiratory distress: Status: Acute (4) Alcohol withdrawal with delirium in inpatient treatment: Status: Acute (5) Nausea and vomiting: Status: Acute Assessment & Plan narrative: - Stop versed. Lower Fentanyl (now on 25mcg). Start Propofol. Continue Precedex (now at 0.6) for RASS of 0 to -1 - Place on pressure support; ABG reviewed - If approrpriate for extubation - would extubate while continuing Precedex drip. Continue CIWA protocol - Continue PPI, Thiamine, D5NS - Lovenox for VTE PPx - Social Work consultation. Consider Psych consultation if overdose intentional. - Advance NGT by 5 cm given last CXR.
--- NOTE | 2022-12-23 10:30 | DIET.CONS2 ---
Addendum entered by Anne-Marie Jaimes 12/23/22 10:36: RD agrees with internship coordinator note below. Original Note: Dietary Inpatient Consultation Note Admission Date: 12/22/2022 07:51 Extubation planned for today. No consult needed at this time. Reconsult RD if plan changes. Electronically Signed by: Lynda Lopez 12/23/22 10:30 Clinical Dietitian [address] [id number]
--- NOTE | 2022-12-23 12:35 | CM.DANOTE ---
DCP: Case received, EMR reviewed. Patient is currently intubated, unable to speak to patient at this time. FriendDom, was at bedside, is main contact. Introduced self and role. Was able to complete information regarding some of patient's history in order to complete DCP assessment. Patient is a 62 year old male who admitted yesterday morning to the care of the hospitalist team. PCP: Dr. Keller. Payer: confirmed: [facility] [employer]. Patient came to the hospital via ambulance secondary to drug intoxication. Patient has history of alcohol use disorder, and occasional THC. Notes indicate that patient took some fentanyl, gave himself Narcan, and called the police. Patient also drinks 4-5 beers a day, but had injected about 2 pints of whiskey. He came in agitated and combated. He originally was placed on the floor on a mattress in the ED Department. Patient then was intubated, due to risk of self harm and harm to others due to his drug and alcohol use. 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 Patient is currently intubated. FriendDom was at bedside. His phone number is: [phone]. He lives near patient, and is the one who had called the ambulance. Confirmed that patient's mother is out of town, in [place] at the present time, and that patient would not want her to be contacted. Patient resides in [place] alone. He had just recently retired, was in the [email or web address] business. Asked friend if patient had noted any signs and symptoms of depression, stated, he had not. Hospital notes indicate that at patient's last hospital visit, he had declined all resources, and did not want to quit drinking. Nurse had indicated that there is a possibility that patient could possibly be extubated today, and may leave AMA. Dom indicated, he would be the one to pick patient up if he is discharged. P: DCP to continue to follow for needs, and can continue to offer resources for patient when he is extubated, and alert, and if he is interested in any type of drug and alcohol rehab. Marybel Smith RN/Management Manager Discharge Planning/Care Management CM Discharge Assessment Start: 12/23/22 12:33 Freq: Status: Active Protocol: Document 12/23/22 12:33 (Rec: 12/23/22 12:34 [id number]) Discharge Planning Assessment Assigned Camera Systems Engineer Marybel Smith RN/Management Manager Advance Directives? Yes Advance Directives on File Yes History Provided By Patient,Family Member,Medical Record Prior Living Arrangements House Household Members none Type of transporation used prior to Drives own vehicle admit Independent with ADL's Yes Is patient alert and oriented? Yes Caregiver for Another No Barriers to Discharge Yes Comment Continued drug and alcohol use Discharge Plan Home Transportation Arrangement FriendDom Referrals Initiated None needed,Other Additional Comment Patient has been offered resources for alcohol abuse at last admission, and declined, he is currently intubated, can offer again with patient is alert. Whiteboard Updated in Patient Room with Yes name and ext. # of Camera Systems Engineer Review Status In Process Next Review Type Continued Stay Review
--- NOTE | 2022-12-23 14:48 | P.PN_ITS ---
Subjective Subjective Interval history: Telemedicine resource specialist is managing the patient. Patient remains intubated and sedated. Plan is to slowly live sedation and extubate likely within the next 24 hours. Narcan prescription is available if patient expects to be discharged once extubated. Patient can be discharged with the Narcan kit. Exam Vital Signs (past 8 hours): - 12/23/22 07:00 12/23/22 07:00 12/23/22 07:15 Temperature 99.9 F H 99.9 F H Pulse Rate 48 L 47 L Respiratory Rate 18 18 Blood Pressure 154/78 H Pulse Oximetry 97 98 Oxygen Delivery Method Oxygen Flow Rate 12/23/22 07:30 12/23/22 07:45 12/23/22 07:00 Temperature 99.7 F H 99.7 F H Pulse Rate 49 L 48 L Respiratory Rate 18 18 Blood Pressure Pulse Oximetry 98 98 Oxygen Delivery Method Mechanical Ventilation Oxygen Flow Rate 12/23/22 07:40 12/23/22 08:00 12/23/22 08:00 Temperature 99.7 F H 99.7 F H Pulse Rate 48 L Respiratory Rate 18 Blood Pressure 156/77 H Pulse Oximetry 98 Oxygen Delivery Method Oxygen Flow Rate 12/23/22 08:15 12/23/22 08:30 12/23/22 08:45 Temperature 99.3 F 99.3 F 99.5 F Pulse Rate 60 49 L 49 L Respiratory Rate 30 H 18 18 Blood Pressure Pulse Oximetry 100 98 98 Oxygen Delivery Method Oxygen Flow Rate 12/23/22 09:00 12/23/22 09:00 12/23/22 09:09 Temperature 99.3 F Pulse Rate 54 L Respiratory Rate 18 Blood Pressure 153/75 H 122/69 Pulse Oximetry 98 Oxygen Delivery Method Oxygen Flow Rate 12/23/22 09:09 12/23/22 09:15 12/23/22 09:30 Temperature 99.3 F 99.5 F 99.5 F Pulse Rate 51 L 49 L 45 L Respiratory Rate 21 28 H 18 Blood Pressure Pulse Oximetry 97 97 97 Oxygen Delivery Method Oxygen Flow Rate 12/23/22 09:45 12/23/22 10:00 12/23/22 10:00 Temperature 99.3 F 99.1 F Pulse Rate 45 L 44 L Respiratory Rate 18 18 Blood Pressure 151/76 H Pulse Oximetry 98 97 Oxygen Delivery Method Oxygen Flow Rate 12/23/22 10:15 12/23/22 10:30 12/23/22 10:45 Temperature 99.1 F 99.0 F 98.8 F Pulse Rate 46 L 46 L 46 L Respiratory Rate 18 19 19 Blood Pressure Pulse Oximetry 98 98 98 Oxygen Delivery Method Oxygen Flow Rate 12/23/22 11:00 12/23/22 11:00 12/23/22 11:15 Temperature 98.8 F 98.6 F Pulse Rate 46 L 47 L Respiratory Rate 19 19 Blood Pressure 164/79 H Pulse Oximetry 97 98 Oxygen Delivery Method Oxygen Flow Rate 12/23/22 11:30 12/23/22 11:45 12/23/22 12:00 Temperature 98.6 F 98.6 F Pulse Rate 46 L 45 L Respiratory Rate 18 18 Blood Pressure 162/79 H Pulse Oximetry 98 98 Oxygen Delivery Method Oxygen Flow Rate 12/23/22 12:00 12/23/22 12:15 12/23/22 12:30 Temperature 98.6 F 98.6 F 98.6 F Pulse Rate 45 L 46 L 46 L Respiratory Rate 18 18 20 Blood Pressure Pulse Oximetry 97 97 97 Oxygen Delivery Method Oxygen Flow Rate 12/23/22 12:45 12/23/22 13:00 12/23/22 13:00 Temperature 98.4 F 98.4 F Pulse Rate 45 L 45 L Respiratory Rate 18 18 Blood Pressure 150/75 H Pulse Oximetry 97 95 Oxygen Delivery Method Oxygen Flow Rate 12/23/22 13:15 12/23/22 13:30 12/23/22 14:22 Temperature 98.4 F 98.6 F Pulse Rate 45 L 45 L Respiratory Rate 18 18 Blood Pressure Pulse Oximetry 95 95 97 Oxygen Delivery Method Oxygen Flow Rate 12/23/22 14:45 Temperature Pulse Rate 63 Respiratory Rate 20 Blood Pressure Pulse Oximetry 98 Oxygen Delivery Method Oximask Oxygen Flow Rate 2 Oxygen Delivery Method Oximask Oxygen Flow Rate 2 Narrative Exam Narrative: General:? Patient intubated and sedated and resting calmly, not fully arousable. HEENT:? Moist mucous membranes,? minor bilateral scleral erythema without icterus Respiratory:? Lungs are clear to auscultation, no wheezing no rales no rhonchi.? Full and symmetrical air movement.? Intubated. Cardiac: ? mild tachycardia but otherwise Regular rate and rhythm no murmurs no bruits Abdomen:? Soft,? no ascites Skin: ?? spider hemangiomas noted Neurologic: ? acute delirium on presentation needing sedation and intubation at the time of my examination Extremities:? No? specific trauma, Psych:? Remains sedated with medication. Objective Labs 12/23/22 03:59 12/23/22 03:59 Labs: Laboratory Results - last 24 hr 12/22/22 12/23/22 12/23/22 13:20 03:59 03:59 WBC 12.1 H RBC 4.03 L Hgb 13.2 L Hct 38.5 L MCV 95.4 MCH 32.7 MCHC 34.3 RDW 13.0 Plt Count 138 L Neut % (Auto) 67.6 Lymph % (Auto) 20.5 L [place] % (Auto) 10.8 Eos % (Auto) 0.6 L Baso % (Auto) 0.5 Neut # (Auto) 8200 H Lymph # (Auto) 2500 [place] # (Auto) 1300 H Eos # (Auto) 100 Baso # (Auto) 100 PT 12.3 INR 1.1 ABG pH ABG pCO2 ABG pO2 ABG HCO3 ABG Total CO2 ABG O2 Saturation ABG Base Excess FiO2 Sodium Potassium Chloride Carbon Dioxide BUN Creatinine Estimated GFR BUN/Creatinine Ratio Glucose Calcium Magnesium Total Bilirubin AST ALT Alkaline Phosphatase Total Protein Albumin Globulin Albumin/Globulin Ratio TSH Nasal Screen MRSA (PCR) Not detected 12/23/22 12/23/22 12/23/22 03:59 03:59 07:24 WBC RBC Hgb Hct MCV MCH MCHC RDW Plt Count Neut % (Auto) Lymph % (Auto) Hernando % (Auto) Eos % (Auto) Baso % (Auto) Neut # (Auto) Lymph # (Auto) Hern[place] # (Auto) Eos # (Auto) Baso # (Auto) PT INR ABG pH 7.45 ABG pCO2 35.8 ABG pO2 77 L ABG HCO3 25 ABG Total CO2 26 ABG O2 Saturation 96 ABG Base Excess 1.0 FiO2 30 Sodium 133 L Potassium 3.6 Chloride 102 Carbon Dioxide 24 BUN 4 L Creatinine 0.56 L Estimated GFR > 60 BUN/Creatinine Ratio 7.1 Glucose 162 H Calcium 8.1 L Magnesium 1.8 Total Bilirubin 1.1 AST 21 ALT 16 Alkaline Phosphatase 102 Total Protein 5.9 L Albumin 3.4 L Globulin 2.5 Albumin/Globulin Ratio 1.4 TSH 1.79 D Nasal Screen MRSA (PCR) PFSH Medical History Alcohol abuse Alcoholic pancreatitis Amputation finger Back pain Chronic pancreatitis Fracture of finger, distal phalanx, open Fracture of finger, middle phalanx, open Onychomycosis Seizures Surgical History History of surgical amputation of finger Family History Mother Osteoarthritis Father Alcohol abuse Medical history unknown Social History household members: none Smoking Status: Current every day smoker alcohol intake: current substance use type: marijuana Assessment & Plan Assessment & Plan narrative: 1. Poly medication abuse in conjunction with alcohol abuse.? Agitated and delirious on presentation requiring intubation and sedation with Precedex.? Telemedicine resource specialist managing decreases sedation and plan for extubation. 2. Drug screen positive for marijuana and alcohol.? Continue to manage alcohol withdrawal initially now with Precedex to settle. 3. History of chronic pancreatitis.? Lipase normal. 4. Low TSH.? Due to lab problems currently unable to assess further thyroid tests at this time.? Monitor TSH to clarify is truly low. TSH normal today. No further evaluation. DVT prophylaxis:? Enoxaparin 40 mg subQ daily GI prophylaxis:? IV daily PPI Patient is full code -this is status from previous admission, unable to ask patient at this time. Mother is primary call or contact centre manager, power of attorney lawyer, requested call as needed with update -this is status of previous admission and will presume it is similar on this admission.? Unable to ask patient. Quality VTE Deep Vein Thrombosis/Pulmonary Embolism Present on Admission: No
--- NOTE | 2022-12-23 14:54 | PC.NURSE ---
All sedation turned off at 1300, including precedex due to HR continuing to drop below 45 continuously. 1430 - patient A&Ox4, MD Sandeep notified, resp parameters met, extubated to RA, O2 sat >95%, lunsford pulled, MILLARD, strong cough, WCTM.
--- NOTE | 2022-12-29 15:57 | PM.DS.1 ---
History of Present Illness History of Present Illness Date Patient Seen: 11/25/22 Chief complaint: Drug intoxication Narrative: 62-year-old gentleman with a long history of alcohol use disorder occasional THC and opiates presents by medics today after reports of an overdose.? It is unclear who actually called medics but patient states that he took some fentanyl gave himself Narcan and then called police.? He notes that he typically drinks 4 or 5 beers a day but on night of presentation had 2 pt of whiskey.? He was significantly agitated and combative in the ER. He was intubated and placed on ventilator as well as Precedex. He was admitted to ICU. Chicken Hatchery Helper telemedicine was consulted. Discharge Providers Provider Date of admission: 12/22/22 07:51 Discharge Date: 11/25/22 Primary care physician: Dom Keller MD Consults: 12/22/22 06:50 Consult to Dietitiradha, Adult Routine Comment: Reason For Exam: Patient on Ventilator and NPO 12/22/22 06:54 Consult to Tele-mill labor supervisor Routine Comment: Consulting Provider: [facility] [employer] Reason for consultation: Chicken Hatchery Helper services Has provider been notified: No 12/22/22 14:10 Consult to Electric Sign Assembler Routine Comment: 12/22/22 17:48 Consult to Tele-mill labor supervisor Routine Comment: Consulting Provider: [facility] [employer] Reason for consultation: Chicken Hatchery Helper services Discharge provider: Laura Ortez MD Summary Hospital Course Discharge Diagnosis: Polymedication abuse Alcohol abuse History of chronic pancreatitis -alcohol related Low TSH Agitation and combative behavior Other comorbidities: Amputation finger Back pain Fracture of finger, distal phalanx, open Fracture of finger, middle phalanx, open Onychomycosis Seizures Hospital Course: Due to polypharmacy and intoxication on presentation, the patient was very agitated and placed on Precedex intravenously as well as intubated on admission. Patient was placed in the ICU. During the day following admission, the patient was extubated and desired to go home. He was given a Narcan kit on discharge to use if needed. However the patient was counseled in regards to avoidance of alcohol and street drugs. Patient required no other medications at the time of discharge. Encouraged to follow-up with his primary care physician following discharge. Status at Discharge Cognitive/behavioral status at discharge: at baseline, oriented Functional status at discharge: independent ambulation Overall status at discharge: patient is back to baseline Time Spent with Patient Time spent: Greater than 30 minutes Exam Vital Signs (past 8 hours): Oxygen Delivery Method Oximask Oxygen Flow Rate 2 Narrative Exam Narrative: General:? In no acute medical distress HEENT:? Moist mucous membranes,? minor bilateral scleral erythema without icterus Respiratory:? Lungs are clear to auscultation, no wheezing no rales no rhonchi.? Full and symmetrical air movement.? Intubated. Cardiac: ? Regular rate and rhythm no murmurs no bruits Abdomen:? Soft,? no ascites Skin: ?? spider hemangiomas noted Neurologic: ?Oriented Extremities:? No specific trauma, Objective Labs 12/23/22 03:59 12/23/22 03:59 [facility] Medical History Alcohol abuse Alcoholic pancreatitis Amputation finger Back pain Chronic pancreatitis Fracture of finger, distal phalanx, open Fracture of finger, middle phalanx, open Onychomycosis Seizures Surgical History History of surgical amputation of finger Family History Mother Osteoarthritis Father Alcohol abuse Medical history unknown Social History household members: none Smoking Status: Current every day smoker alcohol intake: current substance use type: marijuana Discharge Plan Discharge Plan Patient Disposition: Home Provider Discharge Comment: Patient has been given a Narcan kit that was prescribed in his name and provided by pharmacy. However he was also advised that not using street drugs would be most appropriate. He indicated that he just recently started using street drugs/fentanyl for back pain and chest pain because he thought it would help. I advised him to follow up with his family doctor Dr. Dom Keller and have his back pain and chest pain assess more thoroughly with the treatment plan. His friend who came to pick him up is stay with him tonight. Discharge orders & Medications Follow up/Referrals: Dom Keller MD [Primary Care Provider] - Visit Report/Discharge Packet Instructions: Naloxone for Opiate Overdose - [facility] Stand Alone Forms: Patient Portal/API, Stroke Signs & Symptoms, Naloxone Standing Order [facility] Discharge Data Primary Care Provider: Dom Keller Discharges patient from system. Discharge Date/Time: 12/23/22 18:27 Quality VTE Deep Vein Thrombosis/Pulmonary Embolism Present on Admission: No
== END 2022-12-23 18:27 | disposition home or self-care (01) | DRG 812 ==
LOC: ED 05:04 → AC 07:52 → ICU 11:28
PROVIDERS: Neuromusculoskeletal Medicine, Sports Medicine; Admitting Provider Nurse Practitioner Family; Emergency Provider Emergency Medicine; PCP Student in an Organized Health Care Education/Training Program; Referring Provider Emergency Medicine; Visit Provider Nurse Practitioner Family
DX: T40.411A Poisoning by fentanyl or fentanyl analogs, accidental (unintentional), initial encounter (principal); E87.1 Hypo-osmolality and hyponatremia; J96.00 Acute respiratory failure, unspecified whether with hypoxia or hypercapnia; F10.131 Alcohol abuse with withdrawal delirium; F17.210 Nicotine dependence, cigarettes, uncomplicated; Y90.3 Blood alcohol level of 60-79 mg/100 ml; Z20.822 Contact with and (suspected) exposure to COVID-19
CPT/HCPCS: 36415; 36600; 62270; 70450; 71045; 80053; 80076; 80305; 80320; 80329; 81001; 82805; 82962; 83605; 83690; 83735; 84145; 84443; 84484; 85025; 85610; 87070; 87205; 87633; 87635; 87797; 93005; 94002; 94003; 94010; 94799; 96365; 96366; 96367; 96368; 96372; 96375; 96376; 99152; 99153; 99232; 99285; 99291; C9803; C9113; G0480; J1200; J1630; J1650; J2060; J2250; J2560; J2704; J3010; J3475

== ENCOUNTER 2025-08-31 10:58 | Inpatient (IN) | payer OTHER, SELFPAY ==
[2022-03-10 16:15] VITALS: RESP 0
[2022-12-22 13:00] VITALS: BMI 23.8
[2022-12-23 12:43] VITALS: PULSE 47; RESP 19; O2SAT 100
[2025-08-31] VITALS (15 sets, daily range): BP systolic 104–153; BP diastolic 65–87; PULSE 97–123; RESP 13–35; TEMP 36.1–37.1; O2SAT 83–100; BMI 23.3; BMI 25.7
--- NOTE | 2025-08-31 11:23 | EKG_ITS ---
[place] [id number] [place] [id number] Test Date: 2025-08-31 Pat Name: Dom Head Department: Room: Gender: Male Coat Joiner Lockstitch: : 1960 Requested By: Order Number: [id number] Reading MD: Bret Golden Measurements Intervals [place] Rate: 104 P: 45 RI: 134 QRS: -64 QRSD: 102 T: 96 QT: 368 QTc: 483 Interpretive Statements Sinus tachycardia with premature atrial complexes Left axis deviation Abnormal QRS-T angle, consider primary T wave abnormality Electronically Signed On 09-03-2025 12:54:26 PST by Bret Golden
--- NOTE | 2025-08-31 11:24 | ED_ITS ---
HPI - Abdominal Pain General Chief Complaint: Abdominal Pain Stated Complaint: Pancreatic pain, back pain 3 weeks Time Seen by Provider: 08/31/25 11:17 Source: family Mode of arrival: Wheelchair History of Present Illness HPI narrative: Mr. Holliday is a pleasant 65-year-old male with a past medical history of alcohol use disorder, pancreatitis, tobacco use who presents to the emergency department with his son for left-sided back pain/concerned for pancreatitis x3 weeks. Patient drinks about a qt of rum a day, last drink was this morning. He has been having pain in the left side of his back that feels similar to pancreatitis pain for the last 3 weeks. He has also been having abdominal bloating. His son convinced him to come to the emergency department today. Patient reports he is not having diarrhea or constipation but does admit to nonbloody vomiting few days ago. Reports tingling in his hands and feet. States he does have a history of withdrawal seizures. He is having pain in the left side of his back with deep breathing. Denies dysuria but reports bloody urine. He denies any prescription medication use, blood thinner use. Related Data Home Medications ?Medication ?Instructions ?Recorded ?Confirmed No Known Home Medications 01/06/2412/21 Allergies Allergy/AdvReac Type Severity Reaction Status Date / Time lactase (From DAIRY AID) Allergy Unknown STOMACH Verified 07/28/24 09:27 UPSET Review of Systems Review of Systems ROS Unobtainable: All systems reviewed & are unremarkable except as noted in HPI and below Patient History Medical History Tobacco dependence Alcohol use disorder, moderate, dependence Fentanyl use disorder, mild, abuse Seizures Amputation finger Onychomycosis Chronic pancreatitis Alcoholic pancreatitis Fracture of finger, distal phalanx, open Fracture of finger, middle phalanx, open Alcohol abuse Back pain Surgical History History of surgical amputation of finger Family History Mother Osteoarthritis Father Alcohol abuse Medical history unknown Social History household members: none Smoking Status: Current every day smoker alcohol intake: current substance use type: marijuana Smoking Status: Current every day smoker tobacco type: cigarettes alcohol intake frequency: 3 or more drinks per day Alcohol type: hard liquor Exam Narrative Exam Narrative: GENERAL: 65 year old patient appears older stated age. Chronically appearing patient. HEAD: Atraumatic. Normocephalic. EYES: PERRL. Extraocular motions intact. Scleral icterus present. ENT: Uvula midline. Mucous membranes dry. NECK: Trachea midline. Cervical ROM intact. CARDIOVASCULAR: Regular rate and rhythm. RESPIRATORY: ?Nonlabored respirations. ?Speaking in clear, full sentences. ?Clear to auscultation. GASTROINTESTINAL: Abdomen soft, distended. Mild left upper quadrant tenderness. Bowel sounds present. BACK: No midline spinal tenderness. NEURO: Alert, oriented, answers questions appropriately. No active tremors or seizure-like activity. SKIN: Jaundiced. Initial Vital Signs Initial Vital Signs: Vital Signs Temperature 96.9 F L 08/31/25 11:17 Pulse Rate 123 H 08/31/25 11:17 Respiratory Rate 20 08/31/25 11:17 Blood Pressure 116/78 08/31/25 11:17 Pulse Oximetry 99 08/31/25 11:17 Oxygen Delivery Method Room Air 08/31/25 11:17 Course Orders Ordered: ED Orders 08/31/25 11:23 XR chest 1V Stat EKG-12 Lead Stat 08/31/25 11:41 CT abdomen pelvis w con Stat 08/31/25 11:45 Ammonia (NH3) Stat Complete Blood Count AUTO DIFF Stat Comprehensive Metabolic Panel Stat Ethanol (ETOH) Stat Lactate (Lactic Acid) Stat Lipase Stat Magnesium Stat PTT Partial Thromboplastin Lico Stat Procalcitonin Stat Prothrombin Time INR Stat 08/31/25 12:05 Blood Culture Stat Type and Screen Routine Chlordiazepoxide HCl (Chlordiazepoxide 10 Mg Capsule) 10 mg PO TID ELEAZAR Thiamine HCl 500 mg/ Sodium (Chloride) 105 mls @ 420 mls/hr IV Q8H ELEAZAR Stop: 09/03/25 18:14 Potassium Chloride/Sodium Chloride (Ns With Kcl 20 Meq) 1,000 mls @ 100 mls/hr IV CONT ELEAZAR Lactulose (Lactulose 20 Gm/30 Ml Solution) 20 gm PO TID ELEAZAR Lorazepam (Lorazepam 2 Mg/Ml Inj) 0 mg IV CIWAPRN PRN; Protocol PRN Reason: Alcohol Withdrawal Lorazepam (Lorazepam 1 Mg Tablet) 0 mg PO CIWAPRN PRN; Protocol PRN Reason: Alcohol Withdrawal Multivitamins (Multivitamin 1 Tablet) 1 tab PO DAILY ELEAZAR Phenobarbital (Phenobarbital 65 Mg/Ml Vial) 30 mg IV Q8H ELEAZAR Stop: 09/03/25 18:14 Discontinued Medications Chlordiazepoxide HCl (Chlordiazepoxide 25 Mg Capsule) 100 mg PO NOW ONE Stop: 08/31/25 11:46 Last Admin: 08/31/25 12:07 Dose: 100 mg Documented By: AMPARO Sodium Chloride (Normal Saline 0.9%) 1,000 mls @ 1,000 mls/hr IV BOLUS ONE Stop: 08/31/25 12:22 Last Infusion: 08/31/25 19:31 Dose: Infused Documented By: Admin: 08/31/25 11:35 Dose: 1,000 mls/hr Documented By: MURRAY Sodium Chloride (Normal Saline 0.9%) 1,000 mls @ 1,000 mls/hr IV BOLUS ONE Stop: 08/31/25 12:40 Last Infusion: 08/31/25 19:31 Dose: Infused Documented By: Admin: 08/31/25 12:09 Dose: 1,000 mls/hr Documented By: AMPARO Thiamine HCl 200 mg/ Sodium (Chloride) 102 mls @ 408 mls/hr IV NOW ONE Stop: 08/31/25 11:42 Last Infusion: 08/31/25 12:42 Dose: Infused Documented By: Admin: 08/31/25 12:08 Dose: 408 mls/hr Documented By: AMPARO Magnesium Sulfate (Magnesium Sulfate) 2 gm in 50 mls @ 25 mls/hr IV NOW ONE Stop: 08/31/25 14:55 Last Infusion: 08/31/25 19:30 Dose: Infused Documented By: KEVIN Co-signed By: RK Admin: 08/31/25 13:35 Dose: 25 mls/hr Documented By: AMPARO Co-signed By: CAMDEN POTASSIUM CHLORIDE IN WATER (Potassium Cl 10 Meq/100 Ml Patricia) 10 meq in 100 mls @ 100 mls/hr IV Q1H ELEAZAR Stop: 08/31/25 16:59 Last Infusion: 08/31/25 19:30 Dose: Infused Documented By: Admin: 08/31/25 17:51 Dose: 100 mls/hr Documented By: Infusion: 08/31/25 17:29 Dose: Infused Documented By: Admin: 08/31/25 16:29 Dose: 100 mls/hr Documented By: Infusion: 08/31/25 16:17 Dose: Infused Documented By: Admin: 08/31/25 15:17 Dose: 100 mls/hr Documented By: Infusion: 08/31/25 14:36 Dose: Infused Documented By: Admin: 08/31/25 13:36 Dose: 100 mls/hr Documented By: AMPARO Albumin Human (Alburx) 12.5 gm in 250 mls @ 250 mls/hr IV NOW ONE Stop: 08/31/25 15:26 Last Infusion: 08/31/25 19:30 Dose: Infused Documented By: Admin: 08/31/25 15:17 Dose: 250 mls/hr Documented By: AMPARO Lorazepam (Lorazepam 2 Mg/Ml Inj) 1 mg IV NOW ONE Stop: 08/31/25 11:42 Last Admin: 08/31/25 12:07 Dose: 1 mg Documented By: AMPARO Ondansetron HCl (Ondansetron 4 Mg/2 Ml Inj) 4 mg IV NOW PRN PRN Reason: Nausea And Vomiting Last Admin: 08/31/25 12:07 Dose: 4 mg Documented By: AMPARO Vital Signs Vital signs: Vital Signs - 8 hr 08/31/25 11:52 08/31/25 12:00 08/31/25 12:39 Pulse Rate 105 H 106 H 101 H Respiratory Rate 19 19 Blood Pressure Pulse Oximetry 98 98 99 08/31/25 12:40 08/31/25 12:40 08/31/25 12:41 Pulse Rate 104 H 105 H Respiratory Rate 14 13 Blood Pressure 133/80 Pulse Oximetry 97 97 08/31/25 12:41 08/31/25 13:00 08/31/25 13:00 Pulse Rate 104 H Respiratory Rate 27 H Blood Pressure 130/77 130/79 Pulse Oximetry 93 08/31/25 13:30 08/31/25 13:30 08/31/25 14:00 Pulse Rate 108 H Respiratory Rate 35 H Blood Pressure 116/69 153/87 H Pulse Oximetry 83 L 08/31/25 14:00 08/31/25 14:30 08/31/25 14:30 Pulse Rate 102 H 99 H Respiratory Rate 28 H 31 H Blood Pressure 104/65 Pulse Oximetry 100 97 08/31/25 15:00 08/31/25 15:00 08/31/25 15:30 Pulse Rate 99 H Respiratory Rate 27 H Blood Pressure 107/67 115/78 Pulse Oximetry 97 08/31/25 15:30 Pulse Rate 97 H Respiratory Rate 31 H Blood Pressure Pulse Oximetry 98 MDM - Abdominal Pain Medical Records Attestation: I reviewed the patient's medical records. Lab Data 08/31/25 11:45 08/31/25 11:45 Labs: Lab Results 08/31/25 08/31/25 Range/Units 11:45 12:05 WBC 7.8 (4.5-11.0) X10^3/uL RBC 3.24 L (4.5-5.9) X10^6/uL Hgb 12.0 L (13.5-17.5) g/dL Hct 34.2 L (41-53) % MCV 105.6 H (80-100) fL MCH 37.0 H (26-34) PG MCHC 35.1 (30-36) % RDW 14.5 (11.6-14.8) % Plt Count 73 L (150-400) X10^3/uL Neut % (Auto) Not Reportable Lymph % (Auto) Not Reportable [place] % (Auto) Not Reportable Eos % (Auto) Not Reportable Baso % (Auto) Not Reportable Lymph # (Auto) Not Reportable [place] # (Auto) Not Reportable Baso # (Auto) Not Reportable Total Counted 100 Seg Neutrophils % 65.0 (38-70) % Lymphocytes % (Manual) 30.0 (25-45) % Monocytes % (Manual) 3.0 (2-11) % Eosinophils % (Manual) 1.0 L (2-4) % Basophils % (Manual) 1.0 (0-1) % Neutrophils # (Manual) 5070 (4049-0822) /uL Platelet Estimate Decreased on smear RBC Morphology See below Macrocytosis 1+ H Target Cells 1+ H PT 14.9 H (9.4-12.5) SECONDS INR 1.3 (0.9-1.3) APTT 40 H (25.1-36.5) SECONDS Sodium 133 L (137-145) mmol/L Potassium 2.4 L* (3.4-5.1) mmol/L Chloride 88 L (98-107) mmol/L Carbon Dioxide 24 (22-32) mmol/L BUN 5 L (9-20) mg/dL Creatinine 0.75 (0.66-1.25) mg/dL Estimated GFR > 60 (>60) mL/min BUN/Creatinine Ratio 6.7 (6-22) Glucose 130 H (70-99) mg/dL Lactate 4.8 H* (0.7-2.1) mmol/L Calcium 7.5 L (8.4-10.2) mg/dL Magnesium 1.4 L (1.6-2.3) mg/dL Total Bilirubin 10.0 H (0.2-1.3) mg/dL AST 134 H (17-59) IU/L ALT 20 (<50) IU/L Alkaline Phosphatase 288 H (38-126) U/L Ammonia 72 H (9-30) umol/L Total Protein 8.6 H (6.3-8.2) g/dL Albumin 3.8 (3.5-5.0) g/dL Globulin 4.8 H (1.7-4.1) g/dL Albumin/Globulin Ratio 0.8 L (1.0-2.8) Lipase 43 (23-300) U/L Procalcitonin 0.251 (<0.5) ng/mL Ethyl Alcohol 183 H (<10) mg/dL Blood Type Cancelled O Positive Rho(D) Type Cancelled Antibody Screen Cancelled Negative Imaging Data Chest x-ray: Radiologist's Impression: PROCEDURE: XR CHEST 1V INDICATIONS: suspected sepsis TECHNIQUE: One view of the chest was acquired. COMPARISON: [facility], , XR CHEST 1V, 12/22/2022, 4:15. [facility], , XR CHEST 1V, 12/22/2022, 5:58. [facility], , XR CHEST 1V, 12/23/2022, 4:48. FINDINGS: Surgical changes and devices: None. Lungs and pleura: An incomplete inspiratory result is noted, causing a crowded appearance to the lung markings. No focal infiltrates are seen. No pneumothorax or significant pleural effusions are seen. Mediastinum: Mediastinal contours appear normal. Heart size is normal. Bones and chest wall: No suspicious bony lesions. Age-appropriate bony degenerative changes are seen. Overlying soft tissues appear unremarkable. IMPRESSION: Low lung volumes, without an acute abnormality seen by plain film. No focal infiltrates are seen. Dictated by: Bishnu Regalado M.D. on 08/31/2025 at 11:24 Approved by: Bishnu Regalado M.D. on 08/31/2025 at 11:24 CT scan - abdomen/pelvis: Radiologist's Impression: PROCEDURE: CT ABDOMEN PELVIS W CON INDICATIONS: Left sided abd back pain; ETOH TECHNIQUE: After the administration of intravenous contrast, axial sections acquired from the lung bases to the pubic symphysis. Coronal and sagittal reformats were performed. For radiation dose reduction, the following was used: automated exposure control, adjustment of mA and/or kV according to patient size. COMPARISON: [facility], CT, CT ABDOMEN PELVIS WO CON, 03/11/2022, 10:53. [facility], CT, CT ABDOMEN PELVIS W CON, 09/01/2019, 8:31. FINDINGS: Image quality: Diagnostic. Lower Chest: 7 mm nodule is seen at the anterior right middle lobe (5/17). ABDOMEN: Liver: No solid mass. Liver is hypoattenuating, compatible with fatty infiltration. Gallbladder: No radiopaque gallstones or wall thickening. Biliary ducts: No biliary dilation. Pancreas: No ductal dilation. Spleen: Size is within normal limits. Adrenal Glands: No adrenal nodules. Kidneys and Ureters: No hydronephrosis. No solid mass. No complex renal cystic lesion which requires follow up. Stomach and Bowel: A few diverticula are seen in the colon without signs of acute diverticulitis. Small hiatal hernia. Peritoneum: Small volume of ascites in the abdomen and pelvis. No pneumoperitoneum. Ventral Wall: No significant ventral hernia. Abdominal Nodes: No retroperitoneal or mesenteric adenopathy by size criteria. Vessels: Aorta and inferior vena cava are normal in size. Small periesophageal varices. Recanalized periumbilical vein is noted. PELVIS: Pelvic Organs: Unremarkable. Bladder: No bladder wall thickening, accounting for underdistention. Pelvic Nodes: No enlarged lymph nodes. Miscellaneous: No inguinal hernias are seen. Subcutaneous fluid density structure is seen in the right gluteal region abutting the skin surface, likely a sebaceous cyst. Bones: No aggressive osseous abnormality. Old healed right-sided rib fractures. No acute osseous fracture is seen. IMPRESSION: 1. No acute inflammatory process identified in the abdomen or pelvis. No acute fracture. 2. Diffuse hepatic steatosis. 3. Signs of portal hypertension including small volume of ascites, mild periesophageal varices common recanalized periumbilical vein. 4. Right middle lobe 7 mm pulmonary nodule. Recommend follow-up CT of the chest in 6-12 months. Approved by: Norris Villalba M.D. on 08/31/2025 at 13:25 MDM Narrative Medical decision making narrative: 65-year-old male with a past medical history of alcohol use disorder, pancreatitis, tobacco use who presents to the emergency department with his son for left-sided back pain/concerned for pancreatitis x3 weeks. Differential diagnosis includes but isn't limited to pancreatitis, cirrhosis, electrolyte derangements, alcohol withdrawal, etc. On exam the patient is in no acute distress but he is chronically ill-appearing, tachycardic, jaundice/heath skin coloration. Abdomen is distended without rebound or guarding. No fevers. We will obtain lab work, CT abdomen and pelvis, chest x-ray. After discussion with the attending ED physician, we will treat with 1 mg IV Ativan and oral Librium. We will also treat with thiamine and fluids. Chest x-ray reveals low lung volumes without acute abnormality. Labs reveal normal WBC count 7.8. Somewhat baseline decreased hemoglobin 12.0, hematocrit 34.2. Sodium decreased 133, baseline. Potassium is significantly decreased at 2.4, magnesium also decreased 1.4. Chloride 88, BUN 5 creatinine 0.75. Glucose 130. Lactate elevated 4.8. Calcium decreased 7.5. Total bilirubin significantly elevated 10.0. AST 134, ALT 20, alkaline phosphatase 288. Ammonia elevated 72. Lipase normal 43. Procalcitonin negative 0.251. Magnesium repletion ordered in addition to potassium repletion. CT reveals no acute inflammatory process. There is diffuse hepatic steatosis, signs of portal hypertension and a right pulmonary nodule. 1430: Discussed case with attending ED physician, Dr. Lo. Patient's lab work is concerning for cirrhosis of the liver. Patient warrants admission for electrolyte derangements, alcohol withdrawal. He is somnolent at this time, vital signs all stable. We will order albumin 5%. 1510: Spoke with hospitalist, Dr. Calderon, who graciously accepts the patient for admission to inpatient for further management of his acute electrolyte derangements in the setting of cirrhosis and alcohol withdrawal. Patient is stable for transfer to the floor at this time. Discharge Plan Departure Patient Disposition: Admitted As Inpatient Clinical Impression: Alcohol abuse with withdrawal, Acute hypokalemia Abdominal ascites Qualifiers: Ascites type: due to alcoholic cirrhosis Qualified Code(s): K70.31 - Alcoholic cirrhosis of liver with ascites Admit Date/Time: 08/31/25 15:30 Admit Provider: Foster Lua
[2025-08-31] MEDS: SODIUM CHLORIDE 0.9% 1,000 ML 1000 ML IV ×2 (11:35→12:09)
--- NOTE | 2025-08-31 11:41 | DI.CT.S_ITS ---
PROCEDURE: CT ABDOMEN PELVIS W CON INDICATIONS: Left sided abd back pain; ETOH TECHNIQUE: After the administration of intravenous contrast, axial sections acquired from the lung bases to the pubic symphysis. Coronal and sagittal reformats were performed. For radiation dose reduction, the following was used: automated exposure control, adjustment of mA and/or kV according to patient size. COMPARISON: [facility], CT, CT ABDOMEN PELVIS WO CON, 03/11/2022, 10:53. [facility], CT, CT ABDOMEN PELVIS W CON, 09/01/2019, 8:31. FINDINGS: Image quality: Diagnostic. Lower Chest: 7 mm nodule is seen at the anterior right middle lobe (5/17). ABDOMEN: Liver: No solid mass. Liver is hypoattenuating, compatible with fatty infiltration. Gallbladder: No radiopaque gallstones or wall thickening. Biliary ducts: No biliary dilation. Pancreas: No ductal dilation. Spleen: Size is within normal limits. Adrenal Glands: No adrenal nodules. Kidneys and Ureters: No hydronephrosis. No solid mass. No complex renal cystic lesion which requires follow up. Stomach and Bowel: A few diverticula are seen in the colon without signs of acute diverticulitis. Small hiatal hernia. Peritoneum: Small volume of ascites in the abdomen and pelvis. No pneumoperitoneum. Ventral Wall: No significant ventral hernia. Abdominal Nodes: No retroperitoneal or mesenteric adenopathy by size criteria. Vessels: Aorta and inferior vena cava are normal in size. Small periesophageal varices. Recanalized periumbilical vein is noted. PELVIS: Pelvic Organs: Unremarkable. Bladder: No bladder wall thickening, accounting for underdistention. Pelvic Nodes: No enlarged lymph nodes. Miscellaneous: No inguinal hernias are seen. Subcutaneous fluid density structure is seen in the right gluteal region abutting the skin surface, likely a sebaceous cyst. Bones: No aggressive osseous abnormality. Old healed right-sided rib fractures. No acute osseous fracture is seen. IMPRESSION: 1. No acute inflammatory process identified in the abdomen or pelvis. No acute fracture. 2. Diffuse hepatic steatosis. 3. Signs of portal hypertension including small volume of ascites, mild periesophageal varices common recanalized periumbilical vein. 4. Right middle lobe 7 mm pulmonary nodule. Recommend follow-up CT of the chest in 6-12 months. Approved by: Norris Villalba M.D. on 08/31/2025 at 13:25
[2025-08-31 11:58] LABS: Hematocrit 34.2 % (41-53); Hemoglobin 12.0 g/dL (13.5-17.5); Mean Corpuscular HGB Conc 35.1 % (30-36); Mean Corpuscular Hemoglobin 37.0 PG (26-34); Mean Corpuscular Volume 105.6 fL (80-100); Platelet Count 73 X10^3/uL (150-400)
[2025-08-31 12:02] LABS: Add Manual Diff / Slide Review YES
[2025-08-31] MEDS: ONDANSETRON 4 MG/2 ML INJ IV (12:07)
[2025-08-31] MEDS: THIAMINE 200 MG in SODIUM CHLORIDE 0.9% 100 ML 408 MG IV (12:08)
[2025-08-31 12:14] LABS: INR 1.3 (0.9-1.3); Prothrombin Time 14.9 SECONDS (9.4-12.5)
[2025-08-31 12:15] LABS: Basophils Percent Manual 1.0 % (0-1); Eosinophils Percent Manual 1.0 % (2-4); Lymphocytes Percent Manual 30.0 % (25-45); Monocytes Percent Manual 3.0 % (2-11); Neutrophils Absolute Manual 5070 /uL (3000-5900); Segmented Neutrophils Percent 65.0 % (38-70); Total Cells Counted 100
[2025-08-31 12:17] LABS: Macrocytosis 1+; PTT Partial Thromboplastin Tim 40 SECONDS (25.1-36.5)
[2025-08-31 12:18] LABS: Target Cells 1+
[2025-08-31 12:20] LABS: Alanine Aminotransferase 20 IU/L (<50); Albumin 3.8 g/dL (3.5-5.0); Albumin Globulin Ratio 0.8 (1.0-2.8); Alkaline Phosphatase 288 U/L (38-126); Ammonia (NH3) 72 umol/L (9-30); Blood Urea Nitrogen 5 mg/dL (9-20); Calcium 7.5 mg/dL (8.4-10.2); Carbon Dioxide 24 mmol/L (22-32); Chloride 88 mmol/L (98-107); Estimated Glomerular Filt Rate > 60 mL/min (>60); Ethanol (ETOH) 183 mg/dL (<10); Globulin 4.8 g/dL (1.7-4.1); Glucose 130 mg/dL (70-99); HEMOLYSIS < 15 (0-50); Lipase 43 U/L (23-300); Sodium 133 mmol/L (137-145); Total Protein 8.6 g/dL (6.3-8.2)
[2025-08-31 12:21] LABS: Potassium 2.4 mmol/L (3.4-5.1)
[2025-08-31 12:24] LABS: Lactate (Lactic Acid) 4.8 mmol/L (0.7-2.1)
[2025-08-31 12:36] LABS: Procalcitonin 0.251 ng/mL (<0.5)
[2025-08-31 12:51] LABS: Magnesium 1.4 mg/dL (1.6-2.3)
[2025-08-31 13:27] LABS: Reflexed Lactate in 2 Hours Y
[2025-08-31] MEDS: MAGNESIUM SULFATE 2 GM/50 ML PIGGYBACK IV ×2 (13:35→22:03)
[2025-08-31] MEDS: POTASSIUM CHLORIDE IN WATER 10 MEQ/100 ML PIGGYBACK 100 MEQ IV ×4 (13:36→17:51)
[2025-08-31] MEDS: ALBUMIN HUMAN 12.5 GM/250 ML VIAL IV (15:17)
[2025-08-31 16:27] LABS: Lactate 2HR (Lactic Acid Rflx) 2.2 mmol/L (0.7-2.1)
--- NOTE | 2025-08-31 18:21 | P.HP_ITS ---
History of Present Illness History of Present Illness Date Patient Seen: 08/31/25 Chief complaint: Acute liver failure hepatic encephalopathy alcohol Narrative: Chief complaint: Confusion with hepatic encephalopathy alcoholism with history of severe withdrawal drinks 2 quarts of whiskey a day History of present illness: 08/31: 65-year-old male long-term severe alcoholism usually remains isolated was found his son to be in very very poor health looking jaundiced had him brought to the emergency room for evaluation. Past medical history significant for very severe episodes of alcohol withdrawal requiring prolonged intubation for control and cup protection of the airway during sedation at least 4 times Emergency room note: 65-year-old male with a past medical history of alcohol use disorder, pancreatitis, tobacco use who presents to the emergency department with his son for left-sided back pain/concerned for pancreatitis x3 weeks. Patient drinks about a qt of rum a day, last drink was this morning. He has been having pain in the left side of his back that feels similar to pancreatitis pain for the last 3 weeks. He has also been having abdominal bloating. His son convinced him to come to the emergency department today. Patient reports he is not having diarrhea or constipation but does admit to nonbloody vomiting few days ago. Reports tingling in his hands and feet. States he does have a history of withdrawal seizures. He is having pain in the left side of his back with deep breathing. Denies dysuria but reports bloody urine. He denies any prescription medication use, blood thinner use. At the time of my evaluation patient was sedated and not arousable enough to give a history or answer review of systems Findings in the emergency department significant for: Alcohol level 183 Total bili of 10 ammonia of 72 potassium 2.8 sodium 134 lactate of 4.8 initially (2.2 after hydration) PT INR 1.3 PTT 40 platelets 72 Procalcitonin and TSH are and reference range CT of the chest abdomen and pelvis: 1. No acute inflammatory process identified in the abdomen or pelvis. No acute fracture. 2. Diffuse hepatic steatosis. 3. Signs of portal hypertension including small volume of ascites, mild periesophageal varices common recanalized periumbilical vein. 4. Right middle lobe 7 mm pulmonary nodule. Recommend follow-up CT of the chest in 6-12 months. Physical examination: Somnolent barely arousable Jaundice and scleral icterus Heart sounds distant Lung sounds distant Abdomen with ascitic fluid winces when pressed Assessment and plan: Severe acute alcoholic liver failure and active acute alcoholism * Supportive care * Prophylaxis against withdrawal with very low-dose phenobarbital 30 mg and Librium 10 mg * Symptom driven CIWA protocol * Lactulose * Escalation to ICU with Precedex and intubation if needed to protect airway but no resuscitation defibrillation or CPR in the event of cardiac arrest Code status: * Limited code intubation only if needed to protect airway for sedation required treatment of delirium tremens * No intubation for respiratory arrest otherwise * No CPR defibrillation or resuscitation for cardiac arrest Disposition: * Inpatient * Anticipate at least 3 days of hospitalization but it is unclear after 3 days with the clinical course will be Time based billing: * 75 minutes were involved in the evaluation of this patient including [id number] evaluation physical examination of the patient review of extensive records reviewing of extended objective findings including direct visualization of imaging discussion with emergency provider discussion with multiple family members including family members who are medical claims processor [facility] Medical History Tobacco dependence Alcohol use disorder, moderate, dependence Fentanyl use disorder, mild, abuse Seizures Amputation finger Onychomycosis Chronic pancreatitis Alcoholic pancreatitis Fracture of finger, distal phalanx, open Fracture of finger, middle phalanx, open Alcohol abuse Back pain Surgical History History of surgical amputation of finger Family History Mother Osteoarthritis Father Alcohol abuse Medical history unknown Social History household members: none Smoking Status: Current every day smoker alcohol intake: current substance use type: marijuana Meds Home Medications and Allergies Home Medications ?Medication ?Instructions ?Recorded ?Confirmed ?Type No Known Home Medications 01/06/24 120 12/21 History Allergies Allergy/AdvReac Type Severity Reaction Status Date / Time lactase (From DAIRY AID) Allergy Unknown STOMACH Verified 07/28/24 09:27 UPSET Exam Vital Signs (past 8 hours): - 08/31/25 11:17 08/31/25 11:52 08/31/25 12:00 Temperature 96.9 F L Pulse Rate 123 H 105 H 106 H Respiratory Rate 20 19 19 Blood Pressure 116/78 Pulse Oximetry 99 98 98 Oxygen Delivery Method Room Air Oxygen Flow Rate 08/31/25 12:39 08/31/25 12:40 08/31/25 12:40 Temperature Pulse Rate 101 H 104 H Respiratory Rate 14 Blood Pressure 133/80 Pulse Oximetry 99 97 Oxygen Delivery Method Oxygen Flow Rate 08/31/25 12:41 08/31/25 12:41 08/31/25 13:00 Temperature Pulse Rate 105 H Respiratory Rate 13 Blood Pressure 130/77 130/79 Pulse Oximetry 97 Oxygen Delivery Method Oxygen Flow Rate 08/31/25 13:00 08/31/25 13:30 08/31/25 13:30 Temperature Pulse Rate 104 H 108 H Respiratory Rate 27 H 35 H Blood Pressure 116/69 Pulse Oximetry 93 83 L Oxygen Delivery Method Oxygen Flow Rate 08/31/25 14:00 08/31/25 14:00 08/31/25 14:30 Temperature Pulse Rate 102 H Respiratory Rate 28 H Blood Pressure 153/87 H 104/65 Pulse Oximetry 100 Oxygen Delivery Method Oxygen Flow Rate 08/31/25 14:30 08/31/25 15:00 08/31/25 15:00 Temperature Pulse Rate 99 H 99 H Respiratory Rate 31 H 27 H Blood Pressure 107/67 Pulse Oximetry 97 97 Oxygen Delivery Method Oxygen Flow Rate 08/31/25 15:30 08/31/25 15:30 08/31/25 17:00 Temperature 97.4 F L Pulse Rate 97 H 98 H Respiratory Rate 31 H 16 Blood Pressure 115/78 114/79 Pulse Oximetry 98 94 Oxygen Delivery Method Oxygen Flow Rate 2 08/31/25 18:02 Temperature Pulse Rate Respiratory Rate Blood Pressure Pulse Oximetry Oxygen Delivery Method Nasal Cannula Oxygen Flow Rate Oxygen Delivery Method Nasal Cannula Oxygen Flow Rate 2 Objective Labs 08/31/25 11:45 08/31/25 11:45 Labs: Laboratory Results - last 24 hr 08/31/25 08/31/25 08/31/25 11:45 12:05 15:33 WBC 7.8 RBC 3.24 L Hgb 12.0 L Hct 34.2 L MCV 105.6 H MCH 37.0 H MCHC 35.1 RDW 14.5 Plt Count 73 L Neut % (Auto) Not Reportable Lymph % (Auto) Not Reportable [place] % (Auto) Not Reportable Eos % (Auto) Not Reportable Baso % (Auto) Not Reportable Lymph # (Auto) Not Reportable [place] # (Auto) Not Reportable Baso # (Auto) Not Reportable Total Counted 100 Seg Neutrophils % 65.0 Lymphocytes % (Manual) 30.0 Monocytes % (Manual) 3.0 Eosinophils % (Manual) 1.0 L Basophils % (Manual) 1.0 Neutrophils # (Manual) 5070 Platelet Estimate Decreased on smear RBC Morphology See below Macrocytosis 1+ H Target Cells 1+ H PT 14.9 H INR 1.3 APTT 40 H Sodium 133 L Potassium 2.4 L* Chloride 88 L Carbon Dioxide 24 BUN 5 L Creatinine 0.75 Estimated GFR > 60 BUN/Creatinine Ratio 6.7 Glucose 130 H Lactate 4.8 H* 2.2 H Calcium 7.5 L Magnesium 1.4 L Total Bilirubin 10.0 H AST 134 H ALT 20 Alkaline Phosphatase 288 H Ammonia 72 H Total Protein 8.6 H Albumin 3.8 Globulin 4.8 H Albumin/Globulin Ratio 0.8 L Lipase 43 Procalcitonin 0.251 Ethyl Alcohol 183 H Blood Type Cancelled O Positive Rho(D) Type Cancelled Antibody Screen Cancelled Negative Assessment & Plan Time-Based Coding :: [TOTAL MINUTES] spent with patient and on the chart (including review of chart, obtaining history, exam, reviewing outside data, placing orders, documenting exam and treatment plan, and counseling patient) on [DATE]. Quality VTE Deep Vein Thrombosis/Pulmonary Embolism Present on Admission: No
[2025-08-31] MEDS: KCL 20 MEQ IN NS 1,000 ML 100 MEQ IV (20:10)
[2025-08-31] MEDS: THIAMINE 500 MG in SODIUM CHLORIDE 0.9% 100 ML 420 MG IV (20:11)
[2025-08-31] MEDS: LACTULOSE 20 GM/30 ML SOLUTION PO (21:32)
[2025-08-31] MEDS: POTASSIUM CHLORIDE 20 MEQ TAB 40 MEQ PO (22:03)
[2025-09-01] VITALS (10 sets, daily range): BP systolic 111–123; BP diastolic 73–88; PULSE 30–104; RESP 20–34; TEMP 36.4–36.8; O2SAT 92–99
[2025-09-01] MEDS: THIAMINE 500 MG in SODIUM CHLORIDE 0.9% 100 ML 420 MG IV ×3 (03:08→18:06)
[2025-09-01] MEDS: KCL 20 MEQ IN NS 1,000 ML 100 MEQ IV ×2 (06:22→16:51)
[2025-09-01] MEDS: MULTIVITAMIN 1 TABLET 1 TAB PO (09:04)
[2025-09-01] MEDS: LACTULOSE 20 GM/30 ML SOLUTION PO ×3 (09:04→21:00)
[2025-09-01 10:21] LABS: Ammonia (NH3) 61 umol/L (9-30)
[2025-09-01 10:22] LABS: Alanine Aminotransferase 16 IU/L (<50); Albumin 3.1 g/dL (3.5-5.0); Albumin Globulin Ratio 0.8 (1.0-2.8); Alkaline Phosphatase 225 U/L (38-126); Blood Urea Nitrogen 4 mg/dL (9-20); Calcium 7.0 mg/dL (8.4-10.2); Carbon Dioxide 27 mmol/L (22-32); Chloride 98 mmol/L (98-107); Estimated Glomerular Filt Rate > 60 mL/min (>60); Globulin 4.0 g/dL (1.7-4.1); Glucose 112 mg/dL (70-99); HEMOLYSIS < 15 (0-50); Potassium 2.9 mmol/L (3.4-5.1); Sodium 137 mmol/L (137-145); Total Protein 7.1 g/dL (6.3-8.2)
--- NOTE | 2025-09-01 11:28 | CM.DANOTE ---
Addendum entered by Cindy Schulte RN 09/02/25 11:48: Correction: Patient is not intubated as stated below. Original Note: Initial DCP Assessment Note. Review EMR and PT Interview. Met with patient at bedside to discuss discharge needs.PT is alert to self, hospital and street address. Drowsy. No acute distress. Independent. Lives alone. Gavin Friedman can transport home upon discharge. Payor:[employer]?? PCP: Summary & Plan:?65 y/o male arrived to ED via POV c/o AMS and ETOH. Admitted INPT. Dx. Acute Liver Failure. Plan: IVF, Blood Cx. pending. Medications, labs, and Seizure precautions. PT Eval when more awake. Discharge Planning/Care Management CM Discharge Assessment Start: 08/31/25 16:59 Freq: Status: Active Protocol: Document 09/01/25 11:25 (Rec: 09/01/25 11:28 [id number]) Discharge Planning Assessment Assigned Discharge Cindy Schulte RN [employer] Worker Provider Dr. Roberts Insurance [facility] Advance Directives? Yes Advance Directives Yes on File History Provided By Patient,Family Member,Medical Record Has Patient been No admitted in last 30 days? Prior Living Apartment/Condo Arrangements Household Members none Type of Drives own vehicle transporation used prior to admit Independent with ADL Yes 's Is patient alert and Yes oriented? Caregiver for No Another Comment TBD. Need PT eval for dispo Barriers to No Discharge Comment Continued drug and alcohol use Discharge Plan Home Transportation Friend, Dom. Gavin Friedman Arrangement Referrals Initiated Other Additional Comment Patient has been offered resources for alcohol abuse at last admission, and declined, he is currently intubated, can offer again with patient is alert. Review Status In Process Please Provide Date 09/01/25 Initial DC Assessment Was Performed Next Review Type Continued Stay Review
[2025-09-01 11:52] LABS: Magnesium 2.0 mg/dL (1.6-2.3)
[2025-09-01] MEDS: POTASSIUM CHLORIDE 20 MEQ TAB 40 MEQ PO ×2 (12:22→17:39)
--- NOTE | 2025-09-01 14:25 | P.PN_ITS ---
Subjective Subjective Date Patient Seen: 09/01/25 Interval history: Chief complaint: Confusion with hepatic encephalopathy alcoholism with history of severe withdrawal drinks 2 quarts of whiskey a day History of present illness: 08/31: 65-year-old male long-term severe alcoholism usually remains isolated was found his son to be in very very poor health looking jaundiced had him brought to the emergency room for evaluation. Past medical history significant for very severe episodes of alcohol withdrawal requiring prolonged intubation for control and cup protection of the airway during sedation at least 4 times Emergency room note: 65-year-old male with a past medical history of alcohol use disorder, pancreatitis, tobacco use who presents to the emergency department with his son for left-sided back pain/concerned for pancreatitis x3 weeks. Patient drinks about a qt of rum a day, last drink was this morning. He has been having pain in the left side of his back that feels similar to pancreatitis pain for the last 3 weeks. He has also been having abdominal bloating. His son convinced him to come to the emergency department today. Patient reports he is not having diarrhea or constipation but does admit to nonbloody vomiting few days ago. Reports tingling in his hands and feet. States he does have a history of withdrawal seizures. He is having pain in the left side of his back with deep breathing. Denies dysuria but reports bloody urine. He denies any prescription medication use, blood thinner use. At the time of my evaluation patient was sedated and not arousable enough to give a history or answer review of systems Findings in the emergency department significant for: Alcohol level 183 Total bili of 10 ammonia of 72 potassium 2.8 sodium 134 lactate of 4.8 initially (2.2 after hydration) PT INR 1.3 PTT 40 platelets 72 Procalcitonin and TSH are and reference range CT of the chest abdomen and pelvis: 1. No acute inflammatory process identified in the abdomen or pelvis. No acute fracture. 2. Diffuse hepatic steatosis. 3. Signs of portal hypertension including small volume of ascites, mild periesophageal varices common recanalized periumbilical vein. 4. Right middle lobe 7 mm pulmonary nodule. Recommend follow-up CT of the chest in 6-12 months. Hospital course: 09/01: Patient is less somnolent today but does not make meaningful verbal responses bilirubin has dropped to 7.8 from 10 pneumonia has dropped from 72-62 potassium was 2.9 Physical examination: Somnolent barely arousable Jaundice and scleral icterus Heart sounds distant Lung sounds distant Abdomen with ascitic fluid winces when pressed Assessment and plan: Severe acute alcoholic liver failure and active acute alcoholism * Supportive care * Prophylaxis against withdrawal with very low-dose phenobarbital 30 mg and Librium 10 mg * Symptom driven CIWA protocol * Lactulose * Escalation to ICU with Precedex and intubation if needed to protect airway but no resuscitation defibrillation or CPR in the event of cardiac arrest Code status: * Limited code intubation only if needed to protect airway for sedation required treatment of delirium tremens * No intubation for respiratory arrest otherwise * No CPR defibrillation or resuscitation for cardiac arrest Disposition: * Inpatient * Anticipate at least 3 days of hospitalization but it is unclear after 3 days with the clinical course will be Time based billing: * 35 minutes were involved in the evaluation of this patient including [id number] evaluation physical examination of the patient review of extensive records reviewing of extended objective findings including direct visualization of imaging discussion with emergency provider discussion with multiple family members including family members who are medical office secretary Exam Vital Signs (past 8 hours): - 09/01/25 08:23 09/01/25 09:04 09/01/25 12:00 Temperature 97.9 F 98.2 F Pulse Rate 93 H 98 H Respiratory Rate 20 23 Blood Pressure 123/73 120/81 Pulse Oximetry 92 93 97 Oxygen Delivery Method Nasal Cannula Oxygen Flow Rate 3 2 3 Fraction of Inspired Oxygen 28 Fraction of Inspired Oxygen 28 SaO2/FiO2 Ratio 332 Oxygen Delivery Method Nasal Cannula Oxygen Flow Rate 3 Objective Labs 08/31/25 11:45 09/01/25 09:57 Labs: Laboratory Results - last 24 hr 08/31/25 09/01/25 15:33 09:57 Sodium 137 Potassium 2.9 L Chloride 98 Carbon Dioxide 27 BUN 4 L Creatinine 0.51 L Estimated GFR > 60 BUN/Creatinine Ratio 7.8 Glucose 112 H Lactate 2.2 H Calcium 7.0 L Magnesium 2.0 Total Bilirubin 7.8 H AST 100 H ALT 16 Alkaline Phosphatase 225 H Ammonia 61 H Total Protein 7.1 Albumin 3.1 L Globulin 4.0 Albumin/Globulin Ratio 0.8 L PFSH Medical History Tobacco dependence Alcohol use disorder, moderate, dependence Fentanyl use disorder, mild, abuse Seizures Amputation finger Onychomycosis Chronic pancreatitis Alcoholic pancreatitis Fracture of finger, distal phalanx, open Fracture of finger, middle phalanx, open Alcohol abuse Back pain Surgical History History of surgical amputation of finger Family History Mother Osteoarthritis Father Alcohol abuse Medical history unknown Social History household members: none Smoking Status: Current every day smoker alcohol intake: current substance use type: marijuana Assessment & Plan Time-Based Coding :: [TOTAL MINUTES] spent with patient and on the chart (including review of chart, obtaining history, exam, reviewing outside data, placing orders, documenting exam and treatment plan, and counseling patient) on [DATE]. Quality VTE Deep Vein Thrombosis/Pulmonary Embolism Present on Admission: No
--- NOTE | 2025-09-01 14:52 | DIET.CONS ---
Dietary Consultation Note Admission Date: 08/31/2025 15:30 Assessment: 65 y M admitted for severe acute alcoholic liver failure and active acute alcoholism. Dietitian consulted for malnutrition. Spoke to RN, pt not alert enough for assessment. Reports pt drinking water but not eating right now and may be able to consume an Ensure at meals until appetite improves. EMR reviewed. Consumes 1-2 quarts of hard liquor per day. Ht: 165.1 cm Wt: 70 kg BMI: 25.7 UBW: 69.4 kg on 07/28/24, no recent weights Last BM: 08/29/25 (08/31/25 17:00) MNA: 10 Junior Score: 16 Diet: 09/01/25 Breakfast General (Regular) Diet Diet Modifications: Food Texture: Level 7 - Regular Liquid Consistency: Level 0 - Thin Labs: RBC 3.24 X10^6/uL (4.5-5.9) L 08/31/25 11:45 Hgb 12.0 g/dL (13.5-17.5) L 08/31/25 11:45 Hct 34.2 % (41-53) L 08/31/25 11:45 Creatinine 0.51 mg/dL (0.66-1.25) L 09/01/25 09:57 Lactate 2.2 mmol/L (0.7-2.1) H 08/31/25 15:33 Nutrition Diagnosis: Excessive EtOH intake r/t alcohol misuse aeb 1-2 quarts hard liquor per day Suspect pt is malnourished, further assessment needed Interventions: Ensure BID as tolerated EER: 1750 kcals (25 kcals/kg per BMI) 70-85 g protein (1-1.2g/kg per adult maintenance/acute liver failure) Monitoring/Evaluations: po intakes Electronically Signed by: Anitra Hardin 09/01/25 14:[address] [id number]
[2025-09-01 20:58] LABS: Blood Urea Nitrogen 4 mg/dL (9-20); Calcium 7.2 mg/dL (8.4-10.2); Carbon Dioxide 28 mmol/L (22-32); Chloride 99 mmol/L (98-107); Estimated Glomerular Filt Rate > 60 mL/min (>60); Glucose 123 mg/dL (70-99); HEMOLYSIS < 15 (0-50); Potassium 3.1 mmol/L (3.4-5.1); Sodium 137 mmol/L (137-145)
[2025-09-02] VITALS (9 sets, daily range): BP systolic 99–125; BP diastolic 53–87; PULSE 94–109; RESP 16–32; TEMP 36.1–36.6; O2SAT 91–100
[2025-09-02] MEDS: THIAMINE 500 MG in SODIUM CHLORIDE 0.9% 100 ML 420 MG IV ×3 (01:28→18:45)
[2025-09-02] MEDS: KCL 20 MEQ IN NS 1,000 ML 100 MEQ IV ×2 (03:06→17:04)
[2025-09-02] MEDS: FOLIC ACID 1 MG TABLET PO (09:34)
[2025-09-02] MEDS: MULTIVITAMIN 1 TABLET 1 TAB PO (09:34)
[2025-09-02] MEDS: LACTULOSE 20 GM/30 ML SOLUTION PO ×3 (09:34→23:06)
[2025-09-02] MEDS: POTASSIUM CHLORIDE 20 MEQ TAB 40 MEQ PO ×2 (09:35→13:24)
--- NOTE | 2025-09-02 10:36 | DIET.PN1 ---
Dietary Progress Note Assessment: Per hospitalist in team rounds this morning, pt and family member will be having hospice informational visit and going home on hospice. No nutritional interventions needed. D/c dietitian consult. Ht: 165.1 cm Wt: 70 kg BMI: 25.7 Last BM: 09/02/25 (09/02/25 06:00) MNA: 10 Junior Score: 16 Diet: 09/01/25 Breakfast General (Regular) Diet Diet Modifications: Food Texture: Level 7 - Regular Liquid Consistency: Level 0 - Thin Labs: RBC 3.24 X10^6/uL (4.5-5.9) L 08/31/25 11:45 Hgb 12.0 g/dL (13.5-17.5) L 08/31/25 11:45 Hct 34.2 % (41-53) L 08/31/25 11:45 Creatinine 0.46 mg/dL (0.66-1.25) L 09/01/25 20:39 Lactate 2.2 mmol/L (0.7-2.1) H 08/31/25 15:33 Electronically Signed by: Anitra Hardin 09/02/25 10:36 Clinical Dietitian [address] [id number]
[2025-09-02 12:20] LABS: Alanine Aminotransferase 16 IU/L (<50); Albumin 2.9 g/dL (3.5-5.0); Albumin Globulin Ratio 0.8 (1.0-2.8); Alkaline Phosphatase 216 U/L (38-126); Blood Urea Nitrogen 3 mg/dL (9-20); Calcium 7.4 mg/dL (8.4-10.2); Carbon Dioxide 30 mmol/L (22-32); Chloride 99 mmol/L (98-107); Estimated Glomerular Filt Rate > 60 mL/min (>60); Globulin 3.7 g/dL (1.7-4.1); Glucose 141 mg/dL (70-99); HEMOLYSIS < 15 (0-50); Potassium 3.1 mmol/L (3.4-5.1); Sodium 136 mmol/L (137-145); Total Protein 6.6 g/dL (6.3-8.2)
[2025-09-02] MEDS: NICOTINE 14 PATCH 14 MG TOP (12:52)
--- NOTE | 2025-09-02 13:25 | CM.DPC ---
DCP Cont. Reviewed EMR and team rounds for pt's medical status and updates. Per team rounds, Dr. Lua asked for this PACKING MACHINE PILOT CAN ROUTER to call and send a referral to [facility] informational [facility]. Called pt's son, Gavin, who Dr. Lua said was the DPOA. Gavin stated that we already have an information visit set up today at 2:00 at the [facility], and my grandma, her live ammunition inspector, and my aunts will be on conference call, and Dr. Lua is going to lead it. Gavin also stated that he was not the DPOA, but that pt's mother is, Carmen [phone]. Called [facility] to confirm that this was scheduled, it was not, and they had no idea who this patient was. Called Gavin back, and confirmed that there was no plan with hospice for today at 2:00. Also, this PACKING MACHINE PILOT CAN ROUTER informed him that hospice will need to speak with Carmen, the DPOA, re: setting this up, as she is the decision maker, and pt is in liver failure, and is sleeping much of the time at the hospital. Dr. Lua states he never told the son that there was an info visit at the hospital today. Called Carmen, and explained the situation, and that this PACKING MACHINE P[employer]OT CAN ROUTER will move forward with faxing medical records and a referral to [facility] to coordinate an info visit w/her and other family. Followed up with an email with resources and contacts for the family to explore hiring more in-home care, and confirmed that pt is not a candidate at this time for the [facility], per her question. Updated Dr. Lua that pt's mother is DPOA, and that other family members calling in should be redirected to her. Discharge is anticipated after this weekend YAIR: 09/05.
--- NOTE | 2025-09-02 16:42 | DI.RAD.S_ITS ---
PROCEDURE: XR CHEST 1V INDICATIONS: Suspected aspiration TECHNIQUE: One view of the chest was acquired. COMPARISON: [facility], , XR CHEST 1V, 08/31/2025, 11:44. FINDINGS: Shallow inspiration. Possible retrocardiac perihilar lung opacity. No pneumothorax or pleural effusion. Chronic right rib fractures. IMPRESSION: Suspect retrocardiac atelectasis or consolidation. Dictated by: Ravin Venegas M.D. on 09/02/2025 at 17:41 Approved by: Ravin Venegas M.D. on 09/02/2025 at 17:42
--- NOTE | 2025-09-02 17:57 | P.PN_ITS ---
Subjective Subjective Date Patient Seen: 09/02/25 Interval history: Chief complaint: Confusion with hepatic encephalopathy alcoholism with history of severe withdrawal drinks 2 quarts of whiskey a day History of present illness: 08/31: 65-year-old male long-term severe alcoholism usually remains isolated was found his son to be in very very poor health looking jaundiced had him brought to the emergency room for evaluation. Past medical history significant for very severe episodes of alcohol withdrawal requiring prolonged intubation for control and cup protection of the airway during sedation at least 4 times Emergency room note: 65-year-old male with a past medical history of alcohol use disorder, pancreatitis, tobacco use who presents to the emergency department with his son for left-sided back pain/concerned for pancreatitis x3 weeks. Patient drinks about a qt of rum a day, last drink was this morning. He has been having pain in the left side of his back that feels similar to pancreatitis pain for the last 3 weeks. He has also been having abdominal bloating. His son convinced him to come to the emergency department today. Patient reports he is not having diarrhea or constipation but does admit to nonbloody vomiting few days ago. Reports tingling in his hands and feet. States he does have a history of withdrawal seizures. He is having pain in the left side of his back with deep breathing. Denies dysuria but reports bloody urine. He denies any prescription medication use, blood thinner use. At the time of my evaluation patient was sedated and not arousable enough to give a history or answer review of systems Findings in the emergency department significant for: Alcohol level 183 Total bili of 10 ammonia of 72 potassium 2.8 sodium 134 lactate of 4.8 initially (2.2 after hydration) PT INR 1.3 PTT 40 platelets 72 Procalcitonin and TSH are and reference range CT of the chest abdomen and pelvis: 1. No acute inflammatory process identified in the abdomen or pelvis. No acute fracture. 2. Diffuse hepatic steatosis. 3. Signs of portal hypertension including small volume of ascites, mild periesophageal varices common recanalized periumbilical vein. 4. Right middle lobe 7 mm pulmonary nodule. Recommend follow-up CT of the chest in 6-12 months. Hospital course: 09/01: Patient is less somnolent today but does not make meaningful verbal responses bilirubin has dropped to 7.8 from 10 pneumonia has dropped from 72-62 potassium was 2.9 09/02: Today patient is less somnolent but still quite confused and somnolent patient appears to have dysphagia bilirubin has de-escalated to 6.5 potassium 3.1 Physical examination: Somnolent but briefly arousable Jaundice and scleral icterus Heart sounds distant Lung sounds distant Abdomen with ascitic fluid winces when pressed Assessment and plan: Severe acute alcoholic liver failure and active acute alcoholism with hepatic encephalopathy and 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 * If needed Escalation to ICU with Precedex and intubation if needed to protect airway but no resuscitation defibrillation or CPR in the event of cardiac arrest * High-dose thiamine 500 IV Q 8 * Referral for hospice to discuss disposition with family: * ANDRES is mother Carmen [phone] * Niece Myranda [phone] is a physician and helpful * sister Alee Contact [facility] [phone] who lives with mother in [place] * Son Gavin [phone] lives locally and checks on his father but has young children in the family in his very occupied Code status: * Limited code intubation only if needed to protect airway for sedation required treatment of delirium tremens * No intubation for respiratory arrest otherwise * No CPR defibrillation or resuscitation for cardiac arrest Disposition: * Inpatient * Anticipate at least 3 days of hospitalization but it is unclear after 3 days with the clinical course will be Time based billing: * 35 minutes were involved in the evaluation of this patient including [id number]-[id number] evaluation physical examination of the patient review of extensive records reviewing of extended objective findings including direct visualization of imaging discussion with emergency provider discussion with multiple family members including family members who are medical physiologist Exam Vital Signs (past 8 hours): - 09/02/25 10:40 09/02/25 12:13 09/02/25 14:23 Temperature 97.9 F Pulse Rate 105 H 102 H 104 H Respiratory Rate 30 H 18 32 H Blood Pressure 124/87 Pulse Oximetry 100 Oxygen Flow Rate 0 09/02/25 16:00 Temperature 97.7 F Pulse Rate 94 H Respiratory Rate 18 Blood Pressure 104/72 Pulse Oximetry 91 Oxygen Flow Rate 0 Fraction of Inspired Oxygen 28 SaO2/FiO2 Ratio 332 Oxygen Delivery Method Nasal Cannula Oxygen Flow Rate 0 Objective Labs 08/31/25 11:45 09/02/25 11:47 Labs: Laboratory Results - last 24 hr 09/01/25 09/02/25 20:39 11:47 Sodium 137 136 L Potassium 3.1 L 3.1 L Chloride 99 99 Carbon Dioxide 28 30 BUN 4 L 3 L Creatinine 0.46 L 0.45 L Estimated GFR > 60 > 60 BUN/Creatinine Ratio 8.7 6.7 Glucose 123 H 141 H Calcium 7.2 L 7.4 L Total Bilirubin 6.5 H AST 91 H ALT 16 Alkaline Phosphatase 216 H Total Protein 6.6 Albumin 2.9 L Globulin 3.7 Albumin/Globulin Ratio 0.8 L PFSH Medical History Tobacco dependence Alcohol use disorder, moderate, dependence Fentanyl use disorder, mild, abuse Seizures Amputation finger Onychomycosis Chronic pancreatitis Alcoholic pancreatitis Fracture of finger, distal phalanx, open Fracture of finger, middle phalanx, open Alcohol abuse Back pain Surgical History History of surgical amputation of finger Family History Mother Osteoarthritis Father Alcohol abuse Medical history unknown Social History household members: none Smoking Status: Current every day smoker alcohol intake: current substance use type: marijuana Assessment & Plan Time-Based Coding :: [TOTAL MINUTES] spent with patient and on the chart (including review of chart, obtaining history, exam, reviewing outside data, placing orders, documenting exam and treatment plan, and counseling patient) on [DATE]. Quality VTE Deep Vein Thrombosis/Pulmonary Embolism Present on Admission: No
[2025-09-02 18:19] LABS: Ammonia (NH3) 38 umol/L (9-30)
[2025-09-02 19:03] LABS: Hematocrit 27.8 % (41-53); Hemoglobin 9.6 g/dL (13.5-17.5); Mean Corpuscular HGB Conc 34.6 % (30-36); Mean Corpuscular Hemoglobin 36.7 PG (26-34); Mean Corpuscular Volume 106.1 fL (80-100); Platelet Count 60 X10^3/uL (150-400)
[2025-09-02 19:06] LABS: Add Manual Diff / Slide Review YES
[2025-09-02 19:31] LABS: Band Neutrophils Percent 1.0 % (3-7); Eosinophils Percent Manual 3.0 % (2-4); Lymphocytes Percent Manual 17.0 % (25-45); Monocytes Percent Manual 5.0 % (2-11); Neutrophils Absolute Manual 6675 /uL (3000-5900); Segmented Neutrophils Percent 74.0 % (38-70); Total Cells Counted 100
[2025-09-02 19:34] LABS: Macrocytosis 1+; Target Cells 1+
[2025-09-03] VITALS (7 sets, daily range): BP systolic 93–114; BP diastolic 63–78; PULSE 74–86; RESP 16–26; TEMP 35.9–37; O2SAT 92–100
[2025-09-03] MEDS: THIAMINE 500 MG in SODIUM CHLORIDE 0.9% 100 ML 420 MG IV ×2 (02:33→13:10)
[2025-09-03] MEDS: KCL 20 MEQ IN NS 1,000 ML 100 MEQ IV ×2 (04:09→13:56)
[2025-09-03 05:15] LABS: Blood Urea Nitrogen 3 mg/dL (9-20); Calcium 7.3 mg/dL (8.4-10.2); Carbon Dioxide 31 mmol/L (22-32); Chloride 104 mmol/L (98-107); Estimated Glomerular Filt Rate > 60 mL/min (>60); Glucose 132 mg/dL (70-99); HEMOLYSIS < 15 (0-50); Potassium 3.2 mmol/L (3.4-5.1); Sodium 138 mmol/L (137-145)
--- NOTE | 2025-09-03 07:41 | PM.PN.1 ---
Subjective Subjective Interval history: Hospital course: 09/01: Patient is less somnolent today but does not make meaningful verbal responses bilirubin has dropped to 7.8 from 10 pneumonia has dropped from 72-62 potassium was 2.9 09/02: Today patient is less somnolent but still quite confused and somnolent patient appears to have dysphagia bilirubin has de-escalated to 6.5 potassium 3.1 S: He was much more alert, denies pain today. He was eager to return home. O: NAD, alert and oriented. Fluent speech. Lungs are clear, normal rate and effort. Heart is regular, no murmur gallop or rub. Abdomen is soft, non distended. Extremities are free of edema. A/P: 1. Acute alcohol withdrawal, active. 2. Liver failure, active. 3. Alcohol use disorder, active. PLAN: -wean phenobarbital. -Monitor LFTs -Out of bed Exam Vital Signs (past 8 hours): - 09/03/25 00:00 09/03/25 04:39 Temperature 96.7 F L 98.6 F Pulse Rate 83 81 Respiratory Rate 26 H 18 Blood Pressure 99/70 98/71 Pulse Oximetry 99 97 Oxygen Flow Rate 0 Fraction of Inspired Oxygen 2 Fraction of Inspired Oxygen 2 SaO2/FiO2 Ratio 332 Oxygen Delivery Method Room Air Oxygen Flow Rate 0 Objective Labs 09/02/25 11:47 09/03/25 04:15 Labs: Laboratory Results - last 24 hr 09/02/25 09/02/25 09/03/25 11:47 18:02 04:15 WBC 8.9 RBC 2.62 L Hgb 9.6 L Hct 27.8 L MCV 106.1 H MCH 36.7 H MCHC 34.6 RDW 14.4 Plt Count 60 L Neut % (Auto) Not Reportable Lymph % (Auto) Not Reportable [place] % (Auto) Not Reportable Eos % (Auto) Not Reportable Baso % (Auto) Not Reportable Lymph # (Auto) Not Reportable [place] # (Auto) Not Reportable Baso # (Auto) Not Reportable Total Counted 100 Seg Neutrophils % 74.0 H Band Neutrophils % 1.0 L Lymphocytes % (Manual) 17.0 L Monocytes % (Manual) 5.0 Eosinophils % (Manual) 3.0 Neutrophils # (Manual) 6675 H RBC Morphology See below Macrocytosis 1+ H Target Cells 1+ H Sodium 136 L 138 Potassium 3.1 L 3.2 L Chloride 99 104 Carbon Dioxide 30 31 BUN 3 L 3 L Creatinine 0.45 L 0.45 L Estimated GFR > 60 > 60 BUN/Creatinine Ratio 6.7 6.7 Glucose 141 H 132 H Calcium 7.4 L 7.3 L Total Bilirubin 6.5 H AST 91 H ALT 16 Alkaline Phosphatase 216 H Ammonia 38 H Total Protein 6.6 Albumin 2.9 L Globulin 3.7 Albumin/Globulin Ratio 0.8 L PFSH Medical History Tobacco dependence Alcohol use disorder, moderate, dependence Fentanyl use disorder, mild, abuse Seizures Amputation finger Onychomycosis Chronic pancreatitis Alcoholic pancreatitis Fracture of finger, distal phalanx, open Fracture of finger, middle phalanx, open Alcohol abuse Back pain Surgical History History of surgical amputation of finger Family History Mother Osteoarthritis Father Alcohol abuse Medical history unknown Social History household members: none Smoking Status: Current every day smoker alcohol intake: current substance use type: marijuana Assessment & Plan Time-Based Coding :: [TOTAL MINUTES] spent with patient and on the chart (including review of chart, obtaining history, exam, reviewing outside data, placing orders, documenting exam and treatment plan, and counseling patient) on [DATE]. Quality VTE Deep Vein Thrombosis/Pulmonary Embolism Present on Admission: No
--- NOTE | 2025-09-03 10:21 | CM.DPC ---
DCP Cont: Per MD, pt making slow progress and more awake and alert today and plan to order PT/OT although due to staffing needs pt likely might not get PT eval until tomorrow Friday as he is lower on the priority triage list. SW called [facility] and confirmed they have pt's referral and will attempt to call his mother ANDRES Morales with Info Visit this weekend pending availability. Mother already given private CG info as well from previous SW. Plan: SW to follow closely for PT eval to determine mobility needs and potential plan of Hospice pending pt's progress. STEFFEN Preciado
[2025-09-03] MEDS: POTASSIUM CHLORIDE 20 MEQ TAB 40 MEQ PO ×2 (10:30→15:41)
[2025-09-03] MEDS: LACTULOSE 20 GM/30 ML SOLUTION PO ×3 (10:30→21:37)
[2025-09-03] MEDS: NICOTINE 14 PATCH 14 MG TOP (10:31)
[2025-09-03] MEDS: FOLIC ACID 1 MG TABLET PO (10:31)
[2025-09-03] MEDS: MULTIVITAMIN 1 TABLET 1 TAB PO (10:31)
[2025-09-03 10:42] LABS: Alanine Aminotransferase 17 IU/L (<50); Albumin 2.8 g/dL (3.5-5.0); Albumin Globulin Ratio 0.7 (1.0-2.8); Alkaline Phosphatase 203 U/L (38-126); Blood Urea Nitrogen 3 mg/dL (9-20); Calcium 7.5 mg/dL (8.4-10.2); Carbon Dioxide 25 mmol/L (22-32); Chloride 105 mmol/L (98-107); Estimated Glomerular Filt Rate > 60 mL/min (>60); Globulin 3.9 g/dL (1.7-4.1); Glucose 178 mg/dL (70-99); Potassium 3.8 mmol/L (3.4-5.1); Sodium 135 mmol/L (137-145); Total Protein 6.7 g/dL (6.3-8.2)
[2025-09-03 10:43] LABS: HEMOLYSIS 53 (0-50)
--- NOTE | 2025-09-03 12:17 | PT.IIE ---
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 coma (08/31/25) Surgical History (Last Reviewed 07/28/24 @ 09:29 by Dee Thomson RN) History of surgical amputation of finger Medical History (Last Reviewed 07/28/24 @ 09:29 by Dee Thomson RN) Alcohol abuse Alcohol use disorder, moderate, dependence Alcoholic pancreatitis Amputation finger Back pain Chronic pancreatitis Fentanyl use disorder, mild, abuse Fracture of finger, distal phalanx, open Fracture of finger, middle phalanx, open Onychomycosis Seizures Tobacco dependence Physical Therapy Inpatient Evaluation/Re-Eval M1 PT IP Prior Functional Status Start: 09/03/25 12:04 Freq: NEEDED Status: Active Protocol: Document 09/03/25 12:05 [facility] (Rec: 09/03/25 12:16 [facility] [id number]) Medical Review Prior Functional Status Medical History Yes Reviewed Diet/Fluid Regular Consistency Communication uncertain Mobility and Gait indep per patient Activities of Daily indep per patient Living and IADL's Prior Functional indep no device per patient Level (Other details ) Social History Household Members none Living Arrangements Apartment/Condo Number of Floors ( One Floor Floors) Number of Stairs To 0 Enter/Railing? Home Environment Standard Height Toilet,Tub/Shower Home Equipment Grab Bars In Shower Employment Status Retired Additional Social History ETOH abuse History Comment M2 PT-IP Current Condition Start: 09/03/25 12:04 Freq: NEEDED Status: Active Protocol: Document 09/03/25 12:05 [facility]AK (Rec: 09/03/25 12:16 [facility] [id number]) Physical Therapy Current Condition Current Condition Evaluation Date 09/03/25 Treatment Diagnosis weakness Onset Date 08/31/25 M3 PT-IP Subjective Start: 09/03/25 12:04 Freq: NEEDED Status: Active Protocol: Document 09/03/25 12:05 [facility] (Rec: 09/03/25 12:16 [facility] [id number]) Subjective Physical Therapy Visit Type Type Initial Evaluation Visit Start Time 11:35 Visit Stop Time 12:02 Number of TRAVEL SALES CONSULTANT Visits 0 Physical Therapy Visit Comments Patient Comments Patient willing to work with PT Patient Goals go home Therapy Pain Assessment Pain When Pain Assessed At Rest Location Back Intensity 0 M4 PT-IP Mobility and Gait Start: 09/03/25 12:04 Freq: NEEDED Status: Active Protocol: Document 09/03/25 12:05 [facility]AK (Rec: 09/03/25 12:16 [facility] [id number]) PT-Bed Mobility Assessment Supine to Sit Supine to Sit Moderate Assistance Sit to Supine Sit to Supine Maximum Assistance Scooting Scooting to Edge of Moderate Assistance Bed Scooting Up and Down Maximum Assistance in Bed PT-Transfer Assessment Sit to and From Stand Sit to and from Moderate Assistance Stand Equipment Transfer Assistive Gait Belt,Front Wheeled Walker Device Transfers Transfer Destination Toilet Comments Mobility Comments attempted transfer/ walk bed to chair but patient unable to take steps, moved to sit back down despite much encouragement to stand and try further. Pt assisted back to bed with max assist 2. Gait Assessment Comments Gait Comments Was able to stand 40 sec with FWW and mod assist, unable to take steps. 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 Gross Range of Motion Upper Extremity ROM Assessment Within Functional Limits Lower Extremity ROM Assessment Within Functional Limits Strength Upper Extremity Strength Assessment Bilaterally Impaired Shoulder 3+ Elbow 4- Hand 4- Lower Extremity Strength Assessment Bilaterally Impaired Hip 2+ Knee 4- Ankle 4- Comments Strength Comments above gross MMT, patient had difficulty with following commands for testing M6 PT-IP Treatment Start: 09/03/25 12:04 Freq: NEEDED Status: Active Protocol: Document 09/03/25 12:05 [facility] (Rec: 09/03/25 12:16 [facility] [id number]) Physical Therapy Treatment Education Education Provided Safety M7 PT-IP Assessment and Plan Start: 09/03/25 12:04 Freq: NEEDED Status: Active Protocol: Document 09/03/25 12:05 [facility] (Rec: 09/03/25 12:16 [facility] [id number]) PT Summary Assessment and Plan Potential Rehabilitation Fair Potential Status of Condition Evolving at Evaluation Summary Impairments Strength,Balance,Cognition,Bed Mobility,Transfers,Gait, Activity Tolerance Assessment Summary Patient in bed when PT arrived, difficulty opening his eye, with encouragement willing to try PT. Initated supine to sit upon request but needed mod assist. Frequent cues to open eyes, LOB backward in sitting during LE strength assessment, required mod assist to sit back upright. BP 96/59. Sit to stand with gait belt, FWW and mod assist of 2. Stood x 40 sec, not able to take steps toward chair, moved to sit despite encouragement to stand longer. Pt. assisted back to bed with max assist, c/o fatigue. Pt. left in care of SUSTAINABILITY MANAGER Goals Bed Mobility Goal Independent Transfer Goal Independent Gait Goal Independent Gait Distance 150 Days to Meet Goals 10 Frequency of Treatment Frequency Of Once a Day Treatment Treatment Plan Physical Therapy Bed Mobility Training,Transfer Training,Gait Training, Treatment Plan Therapeutic Exercise,Balance Retraining,Discharge Planning Weight Bearing Status Weight Bearing Full Weight Bearing Status Recommendations To Nursing Amount of Assist 2 Person Assist Needed Discharge Recommendations PT Discharge SNF Rehab Recommendations Transportation Needs Wheelchair/Cabulance at Discharge
[2025-09-03 17:12] LABS: Ammonia (NH3) 42 umol/L (9-30)
[2025-09-04] VITALS (9 sets, daily range): BP systolic 98–134; BP diastolic 65–86; PULSE 75–96; RESP 17–22; TEMP 36.1–37.6; O2SAT 90–96
[2025-09-04] MEDS: KCL 20 MEQ IN NS 1,000 ML 100 MEQ IV ×3 (00:44→20:14)
--- NOTE | 2025-09-04 07:58 | PM.PN.1 ---
Subjective Subjective Interval history: Hospital course: 09/01: Patient is less somnolent today but does not make meaningful verbal responses bilirubin has dropped to 7.8 from 10 pneumonia has dropped from 72-62 potassium was 2.9 09/02: Today patient is less somnolent but still quite confused and somnolent patient appears to have dysphagia bilirubin has de-escalated to 6.5 potassium 3.1 09/03: More alert with improved labs. Weaned phenobarbital. Bili 6.5, NH3 42. S: Lethargic but arousable. He denies any acute complaints. O: T 97.7?, BP 134/82, pulse 90, respiration 17, SpO2 95%. NAD, alert and oriented. Fluent speech. A&Ox3. Lungs are clear, normal rate and effort. Heart is regular, no murmur gallop or rub. Abdomen is soft, very distended. Extremities are free of edema. Jaundice. A/P: 1. Acute alcohol withdrawal, active. 2. Liver failure, active. 3. Alcohol use disorder, active. PLAN: -stopped phenobarbital. -Monitor LFTs (stable) -Out of bed as able. He appears to have a poor prognosis, family has not been calling or coming around. The patient does not appear to be able to discharge home and appears to be nearing the end of his life life due to his severe liver disease. Exam Vital Signs (past 8 hours): - 09/04/25 01:12 09/04/25 06:45 Temperature 97.2 F L 96.9 F L Pulse Rate 75 80 Respiratory Rate 20 19 Blood Pressure 98/65 116/86 Pulse Oximetry 93 96 Oxygen Flow Rate 0 0 Fraction of Inspired Oxygen 2 SaO2/FiO2 Ratio 332 Oxygen Delivery Method Room Air Oxygen Flow Rate 0 Objective Labs 09/02/25 11:47 09/04/25 10:28 Labs: Laboratory Results - last 24 hr 09/03/25 09/03/25 10:24 16:50 Sodium 135 L Potassium 3.8 Chloride 105 Carbon Dioxide 25 BUN 3 L Creatinine 0.45 L Estimated GFR > 60 BUN/Creatinine Ratio 6.7 Glucose 178 H Calcium 7.5 L Total Bilirubin 6.5 H AST 95 H ALT 17 Alkaline Phosphatase 203 H Ammonia 42 H Total Protein 6.7 Albumin 2.8 L Globulin 3.9 Albumin/Globulin Ratio 0.7 L [facility] Medical History Tobacco dependence Alcohol use disorder, moderate, dependence Fentanyl use disorder, mild, abuse Seizures Amputation finger Onychomycosis Chronic pancreatitis Alcoholic pancreatitis Fracture of finger, distal phalanx, open Fracture of finger, middle phalanx, open Alcohol abuse Back pain Surgical History History of surgical amputation of finger Family History Mother Osteoarthritis Father Alcohol abuse Medical history unknown Social History household members: none Smoking Status: Current every day smoker alcohol intake: current substance use type: marijuana Assessment & Plan Time-Based Coding :: [TOTAL MINUTES] spent with patient and on the chart (including review of chart, obtaining history, exam, reviewing outside data, placing orders, documenting exam and treatment plan, and counseling patient) on [DATE]. Quality VTE Deep Vein Thrombosis/Pulmonary Embolism Present on Admission: No
[2025-09-04] MEDS: ENOXAPARIN 40 MG/0.4 ML SYRINGE SUBCUT (08:36)
[2025-09-04] MEDS: MULTIVITAMIN 1 TABLET 1 TAB PO (08:36)
[2025-09-04] MEDS: FOLIC ACID 1 MG TABLET PO (08:36)
[2025-09-04] MEDS: LACTULOSE 20 GM/30 ML SOLUTION PO ×2 (08:36→20:15)
[2025-09-04] MEDS: NICOTINE 14 PATCH 14 MG TOP (08:37)
[2025-09-04 10:54] LABS: Alanine Aminotransferase 21 IU/L (<50); Albumin 2.9 g/dL (3.5-5.0); Albumin Globulin Ratio 0.7 (1.0-2.8); Alkaline Phosphatase 239 U/L (38-126); Blood Urea Nitrogen 3 mg/dL (9-20); Calcium 7.7 mg/dL (8.4-10.2); Carbon Dioxide 26 mmol/L (22-32); Chloride 103 mmol/L (98-107); Estimated Glomerular Filt Rate > 60 mL/min (>60); Globulin 4.1 g/dL (1.7-4.1); Glucose 126 mg/dL (70-99); HEMOLYSIS < 15 (0-50); Potassium 3.9 mmol/L (3.4-5.1); Sodium 138 mmol/L (137-145); Total Protein 7.0 g/dL (6.3-8.2)
--- NOTE | 2025-09-04 11:20 | PT-IP ANOTE ---
Pt is very sleepy/lethargic this morning and not able to participate in Physical Therapy. Will continue to follow.
[2025-09-04] MEDS: THIAMINE 100 MG in SODIUM CHLORIDE 0.9% 100 ML 404 MG IV (12:33)
--- NOTE | 2025-09-04 16:21 | CM.DPNOTE ---
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 per PT Sun, too lethargic to appropriately work with therapies. per provider, slowly improving. will need to review with family Hospice plan vs SNF. CM team will continue to follow closely for DCP coordination pending medical POC and pt/family preference STEFFEN Slade
[2025-09-04 17:54] LABS: Ammonia (NH3) 9 umol/L (9-30)
[2025-09-05] MEDS: KCL 20 MEQ IN NS 1,000 ML 100 MEQ IV ×2 (05:51→16:00)
--- NOTE | 2025-09-05 07:23 | PM.PN.1 ---
Subjective Subjective Date Patient Seen: 09/05/25 Interval history: 09/01: Patient is less somnolent today but does not make meaningful verbal responses bilirubin has dropped to 7.8 from 10 pneumonia has dropped from 72-62 potassium was 2.9 09/02: Today patient is less somnolent but still quite confused and somnolent patient appears to have dysphagia bilirubin has de-escalated to 6.5 potassium 3.1 09/03: More alert with improved labs. Weaned phenobarbital. Bili 6.5, NH3 42. 09/05: More alert and most recent Bilirubin is 7.0. AST 97, alk phos 239. Patient and his mother who is POA agreed that other family members could be briefed. Daughter is nurse and granddaughter is a physician. Discussed with his son today. Appropriate for hospice and will need nursing home care. Tinea pedis rash to be treated. Minimal swallowing noted by speech therapy. Self feeding very limited noted on OT eval. S: Lethargic but arousable. He denies any acute complaints. O: T 97.7?, BP 134/82, pulse 90, respiration 17, SpO2 95%. NAD, alert and oriented. Halting and quite limited speech. A&Ox3. Lungs are clear, normal rate and effort. Heart is regular, no murmur gallop or rub. Abdomen is soft, very distended. Extremities are free of edema. Jaundice-quite otero appearing. Flaking rash on both feet. A/P: 1. Acute alcohol withdrawal, active. 2. Liver failure, active. 3. Alcohol use disorder, active. 4. Dysphagia 5. Hepatic Encephalopathy 6. Tinea Pedis PLAN: -stopped phenobarbital. Continue Lactulose. -Monitor LFTs (stable) -Out of bed as able. -Speech therapy suggests NPO. OT and PT evals. -Hospice and SNF discussed with multiple family members. He appears to have a poor prognosis, family has become quite involved (son is local, mother has POA and is out of state, daughter is a nurse, granddaughter is a physician). The patient does not appear to be able to discharge home and appears to be nearing the end of his life life due to his severe liver disease. Exam Vital Signs (past 8 hours): Fraction of Inspired Oxygen 2 SaO2/FiO2 Ratio 332 Oxygen Delivery Method Room Air Oxygen Flow Rate 0 Objective Labs 09/02/25 11:47 09/04/25 10:28 Labs: Laboratory Results - last 24 hr 09/04/25 09/04/25 10:28 16:45 Sodium 138 Potassium 3.9 Chloride 103 Carbon Dioxide 26 BUN 3 L Creatinine 0.50 L Estimated GFR > 60 BUN/Creatinine Ratio 6.0 Glucose 126 H Calcium 7.7 L Total Bilirubin 7.0 H AST 97 H ALT 21 Alkaline Phosphatase 239 H Ammonia 9 Total Protein 7.0 Albumin 2.9 L Globulin 4.1 Albumin/Globulin Ratio 0.7 L [facility] Medical History Tobacco dependence Alcohol use disorder, moderate, dependence Fentanyl use disorder, mild, abuse Seizures Amputation finger Onychomycosis Chronic pancreatitis Alcoholic pancreatitis Fracture of finger, distal phalanx, open Fracture of finger, middle phalanx, open Alcohol abuse Back pain Surgical History History of surgical amputation of finger Family History Mother Osteoarthritis Father Alcohol abuse Medical history unknown Social History household members: none Smoking Status: Current every day smoker alcohol intake: current substance use type: marijuana Assessment & Plan Time-Based Coding :: [TOTAL MINUTES] spent with patient and on the chart (including review of chart, obtaining history, exam, reviewing outside data, placing orders, documenting exam and treatment plan, and counseling patient) on [DATE]. Quality VTE Deep Vein Thrombosis/Pulmonary Embolism Present on Admission: No
[2025-09-05 07:57] VITALS: BP 91/71; PULSE 79; RESP 16; TEMP 36.4; O2SAT 95
[2025-09-05 09:48] VITALS: BP 91/71
[2025-09-05] MEDS: FOLIC ACID 1 MG TABLET PO (09:48)
[2025-09-05] MEDS: NICOTINE 14 PATCH 14 MG TOP (09:49)
[2025-09-05] MEDS: MULTIVITAMIN 1 TABLET 1 TAB PO (09:49)
[2025-09-05] MEDS: ENOXAPARIN 40 MG/0.4 ML SYRINGE SUBCUT (09:49)
[2025-09-05] MEDS: LACTULOSE 20 GM/30 ML SOLUTION PO (09:49)
[2025-09-05] MEDS: THIAMINE 100 MG in SODIUM CHLORIDE 0.9% 100 ML 404 MG IV (09:50)
--- NOTE | 2025-09-05 10:08 | OT.IP.EVAL ---
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 coma (08/31/25) Past Medical History (Last Reviewed 07/28/24 @ 09:29 by Dee Thomson RN) Alcohol abuse Alcohol use disorder, moderate, dependence Alcoholic pancreatitis Amputation finger Back pain Chronic pancreatitis Fentanyl use disorder, mild, abuse Fracture of finger, distal phalanx, open Fracture of finger, middle phalanx, open Onychomycosis Seizures Tobacco dependence Surgical History (Last Reviewed 07/28/24 @ 09:29 by Dee Thomson RN) History of surgical amputation of finger Occupational Therapy Inpatient Evaluation/Re-Eval M1 OT IP Prior Functional Status Start: 09/05/25 09:50 Freq: Status: Active Protocol: Document 09/05/25 09:00 BRITNI (Rec: 09/05/25 10:07 [facility] Desktop) Medical Review Prior Functional Status Medical History Yes Reviewed Diet/Fluid Regular Consistency Communication Able to make needs known. Confused. Mobility and Gait indep per patient Activities of Daily able to reheat meals and I with BADLs, reports driving Living and IADL's Social History Household Members none Living Arrangements House Number of Floors ( One Floor Floors) Number of Stairs To 4 with R railing Enter/Railing? Home Environment Standard Height Toilet,Walk in Shower,Built-In Shower Seat Home Equipment Grab Bars Near Toilet,Grab Bars In Shower Employment Status Retired Additional Social History ETOH abuse History Comment M2 OT-IP Current Condition Start: 09/05/25 09:50 Freq: Status: Active Protocol: Document 09/05/25 09:00 BRITNI (Rec: 09/05/25 10:07 [facility] Desktop) Occupational Therapy Current Condition Current Condition Evaluation Date 09/05/25 Treatment Diagnosis ETOH abuse, acute hypokalemia, weakness, decreased self care M3 OT- IP Subjective and Pain Start: 09/05/25 09:50 Freq: Status: Active Protocol: Document 09/05/25 09:00 BRITNI (Rec: 09/05/25 10:07 [facility] Desktop) OT- Subjective Occupational Therapy Visit Type Type Initial Evaluation Visit Start Time 09:00 Visit Stop Time 09:35 Notes Pt was sitting up in bed with his breakfast tray in front of him. Pt agreeable to participating in OT eval. Occupational Therapy Visit Comments Patient Comments I need to get some skis so I can go [place] to the tavern and get my dog. My son needs to bring my truck so I can get home. Patient/Caregiver unable to state Goals OT Pain Assessment Pain Present Pain Present Denied Pain M4 OT- IP ADL's Start: 09/05/25 09:50 Freq: Status: Active Protocol: Document 09/05/25 09:00 BRITNI (Rec: 09/05/25 10:07 [facility] Desktop) OT [id number] General Evaluation Self-Feeding Ability Minimal Assistance Areas Needing Cutting Food,Loading Utensil Assistance OT ADL-Grooming General Evaluation Grooming Ability Minimal Assistance Areas Needing Combing/Brushing Hair Assistance Comments OT Grooming Comments washed his face on setup with vcs for completeness, able to brush front of his head. OT ADL-Oral Care General Eval Oral Care Ability Minimal Assistance Comments Oral Care Comments Needs assist to manage spit basin and to cup OT ADL-Dressing General Eval Lower Body Dressing Total Assistance Ability Areas Needing Socks Assistance OT ADL-Toileting General Evaluation Toileting Ability Total Assistance Comments OT Toileting pt is dependent on pure wick and reports not being able Comments to tell if he needs to use the bathroom OT ADL-Bathing Comments OT Bathing Comments not observed, sponge bath would be safest at this time M5 OT- IP IADL's Start: 09/05/25 09:50 Freq: Status: Active Protocol: Document 09/05/25 09:00 BRITNI (Rec: 09/05/25 10:07 [facility]) OT-Instrumental Activities of Daily Living Deficits IADL Deficits Deficits Identified Home Safety Awareness Awareness of Need Decreased Awareness for Assistance at Home Ability to Problem Unable to Problem Solve Solve Emergency Situations Medication Management Medication unsafe to manage himself Management Comments Money Management Money Management needs assistance Comments Meal Preparation Meal Preparation needs assistance Comments 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 assistance Comments Driving Driving Comments needs assistance M6 OT- IP Functional Cognition Start: 09/05/25 09:50 Freq: Status: Active Protocol: Document 09/05/25 09:00 BRITNI (Rec: 09/05/25 10:07 [facility] Desktop) Cognitive Factors Limiting Selfcare Function Cognitive Ability Level of Alertness Alert Patient Orientation Name,Situation Attention Span Capable of Focused Attention,Capable of Sustained Ability Attention Ability to Follow Able to Follow One Step Commands with Increased Time, Commands Able to Follow One Step Commands with Repetition Memory Description Short Term Impaired,Working Impaired Safety Awareness Underestimates Need for Assistance Cognitive Comments Cognitive Assessment While eating breakfast pt states I'm trying to reach Comments the chocolate syrup as he was reaching off in space. OT told pt he didn't have any chocolate syrup and oriented him to the food on his plate. Later, pt stated that he needed to get some ski's so he could head to the tavern and get his dog. Pt made many confused statements and would benefit from further official assessments of cognition. OT- Vision and Hearing OT- Hearing Assessment OT- Hearing WFL Assessment OT- Vision Assessment Visual Acuity WFL,Glasses For Reading M7 OT- IP Mobility and Balance Start: 09/05/25 09:50 Freq: Status: Active Protocol: Document 09/05/25 09:00 [facility] (Rec: 09/05/25 10:07 [facility] Desktop) OT- Bed Mobility Assessment Supine to Sit Supine to Sit Assist Moderate Assistance,2 Person Assistance Scooting Scooting to Edge of Moderate Assistance,2 Person Assistance Bed OT-Transfer Assessment Sit to and From Stand Sit to and from Moderate Assistance,Maximum Assistance,2 Person Stand Assistance Transfers Transfer Ability Moderate Assistance,Maximum Assistance,2 Person Assistance Technique Transfer Destination Chair Transfer Technique Stand Step Pivot Devices Transfer Assistive Gait Belt,Front Wheeled Walker Devices Comments Mobility Comments Pt keeps his knees bent despite vcs to stand tall, pt initiated sitting onto chair when he was fpc there despite cues. Pt with significantly impaired safety awareness. OT- Balance Assessment Sitting Balance and Reactions Static Sitting Fair Balance Ability Dynamic Sitting Poor Balance Ability Standing Balance and Reactions Static Standing Poor Balance Ability Dynamic Standing Poor Balance Ability M8 OT- IP Objective Assessments Start: 09/05/25 09:50 Freq: Status: Active Protocol: Document 09/05/25 09:00 [facility] (Rec: 09/05/25 10:07 [facility]) OT Gross Range of Motion Upper Extremity Range of Motion Assessment Within Functional Limits OT Strength Hand Battery Tester Field Strength Hand Dominance Right Comments Strength Comments strength not formally assessed, will assess at a later time. M9 OT- IP Assessment and Plan Start: 09/05/25 09:50 Freq: Status: Active Protocol: Document 09/05/25 09:00 BRITNI (Rec: 09/05/25 10:07 [facility]) OT Summary Assessment and Plan Potential Rehabilitation Fair Potential Analytic Complexity Moderate at Evaluation Summary OT Impairments Balance,Functional Cognition,Functional Mobility,Self- Feeding,Grooming,Dressing,Toileting,Bathing,Toilet Transfers,Shower Transfers,Activity Tolerance Progress Towards Slow Progress due to Medical Issues,Slow Progress due Goals to Cognition Assessment Summary Pt is a 65 yo M with a history of ETOH abuse. Pt was brought by son to ED with L side back concern and possible pancreatitis x3 weeks. Pt with significant jaundice appearance. Pt presents with significant confusion and would benefit from additional standardized assessments of cognition. Pt lives alone and would currently be unsafe to return to living alone based on today's eval. Pt presents with impaired functional mobility, impaired cognition, and decreased BADLs. Skilled OT services are appropriate to address these deficits and to promote return towards PLOF. Recommend dc to SNF vs home with strict 24/7 assistance and HH. Goals Self-Feeding Goal Independent Grooming Goal Independent Dressing Goal Independent Toileting Goal Independent Bathing Goal Independent Toilet Transfer Goal Independent Shower Transfer Goal Independent Frequency of Treatment Other frequency 5x/wk Treatment Plan OT Treatment Plan ADL Training,Functional Cognition Training,Functional Mobility,Therapeutic Exercises,Patient/Family Education ,Discharge Planning Other Treatment SLUMS, ADLs Recommendations and Next Treatment Focus Discharge Recommendations OT Discharge Home with 24/7 Assist Available,Home Health,Home vs SNF Recommendations Other Discharge strict 24/7 assist required Recommendations Transportation Needs Wheelchair/Cabulance at Discharge
--- NOTE | 2025-09-05 12:15 | CM.DPC ---
DCP SNF Planning: Per MD, pt continues to make slow progress but able to sit upright in bedside chair and answer some questions and not yet stable for discharge today and does not appear that pt is imminent or likely to in the next couple months. Per PT/OT, still recommending SNF as pt 2PA. Per RN, pt's 1)ANDRES Mroales verbally requested that her grandson Gavin (pt's son) be able to help with coordination of care and updates. SW met bedside with pt and his local son Gavin and explained role and pt able to verbally confirm he is agreeable with son getting information and updates on pt's medical status and to help coordinate discharge planning. Pt able to express that his Goal is to strengthen and improve and see if he can gain back some independence for eventual d/c to home. Pt and son confirms that pt lives alone in [place] but son lives across the street but cannot stay with pt 24/ at d/c as he does work construction and has school aged kids and pt currently needing 2PA. They confirm that pt's mother/ANDRES Morales willing to privately pay for any needs at d/c. SW discussed SNF rehab and pt has no hx of SNF but confirms this is his preference in order to attempt to get stronger. SW provided the SNF Choice list and discussed would need [facility] contracted facility and insurance auth for SNF. Pt and son agreeable with referrals to [facility], [facility], and [facility] to see if any can accept and submit for auth. Discussed pt's ETOH and drug hx could be a barrier to SNF but will attempt SNF placement. Made referrals to [facility], [facility], [facility]. PASRR done in anticipation of SNF. Call from Rebecca at [facility], states she completed Info Visit with ANDRES Morales this weekend and will remain following but aware of current plan of SNF rehab at d/c. VIRIDIANA called 1)ANDRES Morales and updated on above SNF plans and barriers to SNF and need for insurance auth and she confirms she is agreeable with this plan. Carmen's late had been to [facility] for 6 months a couple years ago and she only moved to [place] last year so knows [facility] well. Carmen also confirms she is agreeable with SW calling her Dtr/pt's sister Lorna who also lives in [place] and is an RN there if SW cannot get ahold of her as she is also having phone issues. Plan: SW to follow closely for [facility], [facility], [facility] review to determine if they can accept and submit for [facility] auth. STEFFEN Preciado
--- NOTE | 2025-09-05 13:42 | ST.IPCSEOM ---
Visit Care Team Role Provider Type Rocío Roberts DO Primary Care Provider Physician Specialty: Family Practice Address: [address] [place] [address], [address], [place], [address] Email: [email or web address] [email or web address] PA-C Emergency Provider Advanced Port Traffic Manager Referring Provider Specialty: Emergency Medicine Address: [address] [place] [address], [id number] Fax: Email: [email or web address] Foster Lua MD Admit Provider Physician Attending Provider Specialty: Hospitalist Address: [address] [place] [address], [id number] Fax: Email: [email or web address] 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 coma (08/31/25) Past Medical History (Last Reviewed 07/28/24 @ 09:29 by Dee Thomson RN) Alcohol abuse (Medical) Alcohol use disorder, moderate, dependence (Medical) Alcoholic pancreatitis (Medical) Amputation finger (Medical) left 2nd finger Back pain (Medical) prior to 09/01/19 admission, acute not chronic Chronic pancreatitis (Medical) Fentanyl use disorder, mild, abuse (Medical) Fracture of finger, distal phalanx, open (Medical) left hand Fracture of finger, middle phalanx, open (Medical) left hand Onychomycosis (Medical) Seizures (Medical) In [place] related to heat 120 degrees Tobacco dependence (Medical) Speech-Language Pathology Swallow Evaluation COLD WATER MACHINE OPERATOR Clinical Swallow Evaluation Start: 09/05/25 13:06 Freq: Status: Active Protocol: Document 09/05/25 13:07 SS (Rec: 09/05/25 13:41 [facility] DESKTOP) Clinical Swallow Evaluation Session Time Visit Start Time 11:35 Visit Stop Time 12:05 Total Visit Minutes 30 Visit Information Visit Number [address] Foster Lua MD Reason for Referral Dysphagia Setting Assessment Location Acute Care Visit Type Note Type Initial evaluation Next Note Type Next Note Type Treatment Note Patient Information Identification Type Name History Per H&P: 65-year-old male with a past medical history of alcohol use disorder, pancreatitis, tobacco use who presents to the emergency department with his son for left-sided back pain/concerned for pancreatitis x3 weeks. Patient drinks about a qt of rum a day, last drink was this morning. He has been having pain in the left side of his back that feels similar to pancreatitis pain for the last 3 weeks. He has also been having abdominal bloating. His son convinced him to come to the emergency department today. Patient reports he is not having diarrhea or constipation but does admit to nonbloody vomiting few days ago. Reports tingling in his hands and feet. States he does have a history of withdrawal seizures. He is having pain in the left side of his back with deep breathing. Denies dysuria but reports bloody urine. He denies any prescription medication use, blood thinner use. Per most recent progress notes, pt is less somnolent but still quite confused and appears to have dysphagia. RN reported minimal intake of solids and intermittent coughing with intake. Clinical swallowing evaluation completed to assess current swallowing function, aspiration risk, and need for further instrumental swallow assessment. Subjective Pt sitting in chair upon COLD WATER MACHINE OPERATOR arrival. He was awake, but Observations minimally alert/oriented. He made tangential confused statements throughout the assessment. Pt would benefit from further formal assessment of cognition, but appears to demonstrate at least moderate-severe cognitive impairment at this time. Pt did not seem a reliable historian and was unable to discuss swallowing history with COLD WATER MACHINE OPERATOR. Reported by Patient/Caregiver Other Symptoms Choking Comment Solids: Regular Liquids: Thin Medications: Whole with liquid wash Functional Oral Intake Scale (FOIS): FOIS level 7 FOIS Pillai: Level 1 = no oral intake, Level 2 = tube dependent with minimal/inconsistent oral intake, Level 3 = tube supplements with consistent oral intake, Level 4 = total oral intake of a single consistency, Level 5 = total oral intake of multiple consistencies requiring special preparation, Level 6 = total oral intake with no special preparation, but must avoid specific foods or liquid items, Level 7 = total oral intake with no restrictions Current Diet Regular (IDDSI 7) Baseline Feeding Needs some assistance Method The IDDSI Framework Protocol: IDDSI.1 Objective Assessment Mental Status Confused,Lethargic,Impulsive Oral Integrity WFL Dentition Missing teeth,Decay Lip Function Within normal limits Tongue Function Within normal limits Jaw Function Within normal limits Hard/Soft Palate Within normal limits Function Comment Pt?s oral health is poor. Pt has his own dentition and is missing multiple teeth with significant decay noted. He pt reported he occasionally completed oral care. Oral health status is one of the three pillars of aspiration pneumonia, with research showing that poor oral health increases the risk of pulmonary compromise associated with aspiration. CRANIAL NERVE EXAM CN V (Trigeminal): intact b/l CN VII (Facial): intact b/l CN IX/X (Glossopharyngeal/Vagus): intact b/l CN XII (Hypoglossal): intact b/l Food and Liquid Trials Position During Upright (90 degrees) Assessment Administration Type Tea spoon,Cup single sip,Controlled cup sip,Dependent feeding Oral Impairment Moderately impaired Oral Phase Comments Pt observed across trials of thin liquids via tsp, cup, and straw and puree via tsp (pudding). Pt required set -up assistance and hand under hand feeding as he was unable to feed himself. Pt exhibited difficulty with bolus retrieval from cup and tsp, unable to form seal around tsp and cup edge causing anterior loss of bolus to pt's chest, appearing to distract pt. Pt exhibited adequate bolus retrieval from straw and ability to siphon from straw. Pt exhibited mild anterior loss of liquids d/t difficulty with oral containment given labial weakness. Pt exhibited prolonged bolus manipulation and reduced oral clearance resulting in moderate oral residue. Did not advance solid trials due to overt s/sx of aspiration with puree and concern for pt ability to masticate more solid foods 2/2 cognitive status. Pharyngeal Severely impaired Impairment Pharyngeal Phase Pt demonstrated consistent s/sx of aspiration with all Comments PO re: immediate coughing. Cough strength is judged to be weak increasing aspirated related complications. Pt demonstrated consistent immediate coughing with thin liquids and puree as well as wet vocal quality across trials. No globus sensation reported. However, about 1- 2 minutes after pt had swallowed, he expectorated what seemed to be the majority of the bolus (both liquid and puree), stating ?it?s didn?t go down?. Suspect impairment of pharyngoesophageal segment opening resulting in reduced distention with potential obstruction of flow into the esophagus. Clifford Swallow No Protocol Results The Clifford Swallow Protocol is an evidence-based swallow screening protocol to determine aspiration risk. This tool has been validated across a number of different patient diagnoses and in a number of clinical settings. This is the only screening instrument that both identifies aspiration risk and, when passed, is able to recommend specific oral diets without the need for further instrumental dysphagia testing. Based upon research by Drs. Mayco Duncan and Melva Hadley, this is a reliable and validated swallow screening protocol. Results with 3oz water test: COULD NOT ADMINISTER GIVEN CONSISTENT COUGHING WITH CONTROLLED SIPS OF THIN - deemed unsafe The IDDSI Framework Protocol: IDDSI.1 Findings Swallowing Function Pharyngoesophageal phase dysphagia Severity of Swallow Moderately-severely impaired Impairment Contributing Factors Reduced alertness or attention,Difficulty following to Swallow directions,Reduced oral strength/coordination/sensation Impairment ,Mastication inefficiency,Impaired airway protection, Excessive pharyngeal residue Prognosis Guarded Based on Cognitive status,Comorbidities Comment Pt presents with moderate oral phase dysphagia characterized by difficulty with bolus retrieval, containment, manipulation, and clearance and concern for pharyngeal phase dysphagia given presence of consistent overt signs/symptoms of aspiration (coughing , wet vocal quality). Additionally, suspect impairment of PES function given expectoration of all boluses shortly after pt swallowed them. Pt does not appear safe for a PO diet at this time with exception of a free water protocol to promote oral hygiene and reduce risk of swallow strength decompensation. Based on pt?s current poor oral health status and compromised immune function, pt remains at a high risk of pulmonary compromise associated with aspiration at this time. Pt also appears to be at risk for malnutrition/dehydration due to decreased appetite. Diet modification/non oral nutrition may be indicated, pending dietary consult. Modified Barium Swallow Study (MBSS) is indicated to thoroughly assess pt?s swallow pathophysiology in order to determine the safest diet, effective compensatory strategies, and potential rehabilitative exercises for therapy. However, pt is currently unable to tolerate MBSS given overall cognitive status. Will continue to follow up for appropriateness. Further COLD WATER MACHINE OPERATOR services will continue to be dependent on goals of care. If aggressive/rehabilitative care is pursued, recommend consideration of alternative means of nutrition/hydration given the pt?s dysphagia and limited oral intake, to support nutritional status and strength for ongoing rehabilitation, if no clinical improvements are made re: swallowing. An MBSS is recommended if pt is appropriate to participate to further evaluate the pharyngeal and esophageal phases of swallow and guide recommendations for the safest, most efficient, least restrictive diet, as well as appropriate strategies and/or exercises. However, if comfort-focused care is chosen, recommend pleasure feeds as desired. COLD WATER MACHINE OPERATOR will follow up to determine ongoing need for MBSS as well as ongoing diet recommendations pending [id number] discussions. Impact on Safety and Risk for aspiration,Risk for inadequate nutrition/ Functioning hydration Recommendations Instrumental Yes Assessment Swallowing Treatment Yes Frequency Daily Duration While admitted Recommended Solids NPO Other Free water protocol (following oral care, upright Recommendations positioning, with 1:1 supervision, stop if pt not fully alert/awake and demonstrating overt s/sx of aspiration ) Oral care TID Medication Not Recommended by Mouth Recommendations Discharge nursing home care facility,Home with Hospice Recommendations Referrals Recommended Dietary Referrals Education Patient/Caregiver Described results of evaluation Education Goals Short-term Goals Patient will complete MBSS to further evaluate swallowing pathophysiology and determine next steps in POC. Long-term Goals Patient will safely tolerate least restrictive diet consistency to allow for safe consumption of daily meals without s/sx of aspiration.
--- NOTE | 2025-09-05 14:27 | PT.IPTN ---
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 coma (08/31/25) Physical Therapy Treatment Note M2 PT-IP Current Condition Start: 09/03/25 12:04 Freq: NEEDED Status: Active Protocol: Document 09/03/25 12:05 SAK (Rec: 09/03/25 12:16 SAK [id number]) Physical Therapy Current Condition Current Condition Evaluation Date 09/03/25 Treatment Diagnosis weakness Onset Date 08/31/25 M3 PT-IP Subjective Start: 09/03/25 12:04 Freq: NEEDED Status: Active Protocol: Document 09/05/25 14:18 SAK (Rec: 09/05/25 14:25 [facility] [id number]) Subjective Physical Therapy Visit Type Type Treatment Note Visit Start Time 13:30 Visit Stop Time 13:56 Physical Therapy Visit Comments Patient Comments Pt. sitting in chair, leaning to the left, agreeable to work with PT. Patient Goals go home Therapy Pain Assessment Pain When Pain Assessed At Rest Location Back Intensity 0 M4 PT-IP Mobility and Gait Start: 09/03/25 12:04 Freq: NEEDED Status: Active Protocol: Document 09/05/25 14:18 SAK (Rec: 09/05/25 14:25 [facility] [id number]) PT-Bed Mobility Assessment Sit to Supine Sit to Supine Maximum Assistance PT-Transfer Assessment Sit to and From Stand Sit to and from Moderate Assistance,Maximum Assistance,2 Person Stand Assistance Equipment Transfer Assistive Gait Belt,Front Wheeled Walker Device Transfers Transfer Destination Bed Transfer Technique Stand Step Pivot Transfer Ability Level of Assist Moderate Assistance,Maximum Assistance,1 Person Assistance Comments Mobility Comments Pt. stood upright x 1 min with mod assist. When asked to turn to sit he was unable to maintain upright posture, shuffled his feet a couple times with min movement and sat at edge of bed, impulsive and poor safety awareness Gait Assessment Comments Gait Comments Was able to stand 1 min with FWW and mod assist, unable to take significant stepssteps. PT-Balance Assessment Sitting Balance and Reactions Static Sitting Fair Balance Ability Dynamic Sitting Fair Balance Ability Standing Balance and Reactions Static Standing Poor Balance Ability Dynamic Standing Poor Balance Ability Device Used FWW, gait belt M5 PT-IP Objective Assessments Start: 09/03/25 12:04 Freq: NEEDED Status: Active Protocol: Document 09/05/25 14:18 [facility] (Rec: 09/05/25 14:25 [facility] [id number]) Orientation Orientation/Cognition Level of Alertness Confusional State Orientation Name,Age,Birthday,Year,Place Language Function No Deficits Noted Ability Safety Awareness Decreased Safety Awareness Memory Description Short Term Impaired,Supervisor Forming And Tempering Impaired M6 PT-IP Treatment Start: 09/03/25 12:04 Freq: NEEDED Status: Active Protocol: Document 09/05/25 14:18 [facility] (Rec: 09/05/25 14:25 [facility] [id number]) Physical Therapy Treatment Exercises Exercises Ankle Pumps,Heel Slides,Seated Knee Flexion/Extension M7 PT-IP Assessment and Plan Start: 09/03/25 12:04 Freq: NEEDED Status: Active Protocol: Document 09/05/25 14:18 [facility] (Rec: 09/05/25 14:25 [facility] [id number]) PT Summary Assessment and Plan Summary Impairments Strength,Balance,Cognition,Bed Mobility,Transfers,Gait, Activity Tolerance Assessment Summary Patient in chair when PT arrived, leaning to the left and sleeping. Hard to arouse, but willing to work with PT. Performed seated exercises for LE's with moderate cues. Sit to stand unsuccessful 1st attempt. Second attempt able to move sit to stand with mod assist of f1 , stood x 1 min, but unsuccessful in trying to take steps, posture then very crouched and turned to sit on bed impulsively and unsafely. Assisted back to supine with mod assist. Requires SNF rehab at this time, unsafe for discharge home. Goals Gait Distance 150 Days to Meet Goals 10 Frequency of Treatment Frequency Of Once a Day Treatment Treatment Plan Physical Therapy Bed Mobility Training,Transfer Training,Gait Training, Treatment Plan Therapeutic Exercise,Balance Retraining,Discharge Planning Other FWW for gait as needed for safe gait for home Recommendations and Next Treatment Focus Recommendations To Nursing Amount of Assist 2 Person Assist Needed Discharge Recommendations PT Discharge SNF Rehab Recommendations
[2025-09-05] MEDS: CLOTRIMAZOLE 1% CRM 30 GM 1 APPLIC TOP ×2 (15:05→20:40)
[2025-09-05 16:07] VITALS: BP 115/68; PULSE 99; RESP 17; TEMP 36.4; O2SAT 97
[2025-09-05 17:03] LABS: Ammonia (NH3) < 9 umol/L (9-30)
[2025-09-05 19:00] VITALS: BP 128/81; PULSE 77; RESP 22; TEMP 36.6; O2SAT 94
[2025-09-06] MEDS: KCL 20 MEQ IN NS 1,000 ML 100 MEQ IV ×2 (00:52→10:25)
[2025-09-06 03:00] VITALS: BP 111/73; PULSE 78; RESP 24; TEMP 36.6; O2SAT 90
--- NOTE | 2025-09-06 06:39 | PM.PN.1 ---
Subjective Subjective Date Patient Seen: 09/06/25 Interval history: 09/01: Patient is less somnolent today but does not make meaningful verbal responses bilirubin has dropped to 7.8 from 10 pneumonia has dropped from 72-62 potassium was 2.9 09/02: Today patient is less somnolent but still quite confused and somnolent patient appears to have dysphagia bilirubin has de-escalated to 6.5 potassium 3.1 09/03: More alert with improved labs. Weaned phenobarbital. Bili 6.5, NH3 42. 09/05: More alert and most recent Bilirubin is 7.0. AST 97, alk phos 239. Patient and his mother who is POA agreed that other family members could be briefed. Daughter is nurse and granddaughter is a physician. Discussed with his son today. Appropriate for hospice and will need group home care. Tinea pedis rash to be treated. Minimal swallowing noted by speech therapy. Self feeding very limited noted on OT eval. 09/06: Much more alert and verbally argumentative today. He is demanding to go home but is not capable of understanding his physical limitations. Discussed with son who is present. He is not dropping the food down his shirt today but is still unable to swallow so a modified barium swallow will be done. Ammonia level yesterday was less than 9. NAD, alert and oriented. Argumentative and louder. Speech fluency improving. Eyes are caked shut with pustular discharge. Lungs are clear, normal rate and effort. Heart is regular, no murmur gallop or rub. Abdomen is soft, very distended. Extremities are free of edema. Jaundice-quite otero appearing. Flaking rash on both feet improving. A/P: 1. Acute alcohol withdrawal, active. 2. Liver failure, active. 3. Alcohol use disorder, active. 4. Dysphagia 5. Hepatic Encephalopathy 6. Tinea Pedis 7. Conjunctivitis PLAN: -stopped phenobarbital. Continue Lactulose. -Monitor LFTs (stable) -Out of bed as able. -Speech therapy suggests NPO. MBS ordered. OT and PT evals. -continue IV fluid. -Hospice and SNF discussed with multiple family members. -clotrimazole for tinea pedis -gentamicin eyedrops for conjunctivitis. He appears to have a poor prognosis, family has become quite involved (son is local, mother has POA and is out of state, daughter is a nurse, granddaughter is a physician). The patient does not appear to be able to discharge home and appears to be nearing the end of his life due to his severe liver disease. Exam Vital Signs (past 8 hours): - 09/06/25 03:00 Temperature 97.9 F Pulse Rate 78 Respiratory Rate 24 Blood Pressure 111/73 Pulse Oximetry 90 L Oxygen Flow Rate 0 Fraction of Inspired Oxygen 2 SaO2/FiO2 Ratio 332 Oxygen Delivery Method Room Air Oxygen Flow Rate 0 Narrative Exam Narrative: Alert and oriented to name today. Argumentative and loud. Lacks insight. Heart is regular rate and rhythm without murmur. Lungs are clear to auscultation bilaterally. Extremities have no ankle edema. Skin rash is improving. Objective Labs 09/02/25 11:47 09/04/25 10:28 Labs: Laboratory Results - last 24 hr 09/05/25 16:40 Ammonia < 9 L PFSH Medical History Tobacco dependence Alcohol use disorder, moderate, dependence Fentanyl use disorder, mild, abuse Seizures Amputation finger Onychomycosis Chronic pancreatitis Alcoholic pancreatitis Fracture of finger, distal phalanx, open Fracture of finger, middle phalanx, open Alcohol abuse Back pain Surgical History History of surgical amputation of finger Family History Mother Osteoarthritis Father Alcohol abuse Medical history unknown Social History household members: none Smoking Status: Current every day smoker alcohol intake: current substance use type: marijuana Assessment & Plan Time-Based Coding :: [TOTAL MINUTES] spent with patient and on the chart (including review of chart, obtaining history, exam, reviewing outside data, placing orders, documenting exam and treatment plan, and counseling patient) on [DATE]. Quality VTE Deep Vein Thrombosis/Pulmonary Embolism Present on Admission: No
[2025-09-06 08:59] VITALS: BP 97/64; PULSE 81; RESP 18; TEMP 36.7; O2SAT 92
[2025-09-06] MEDS: NICOTINE 14 PATCH 14 MG TOP (10:05)
[2025-09-06] MEDS: THIAMINE 100 MG in SODIUM CHLORIDE 0.9% 100 ML 404 MG IV (10:06)
[2025-09-06] MEDS: ENOXAPARIN 40 MG/0.4 ML SYRINGE SUBCUT (10:06)
[2025-09-06] MEDS: CLOTRIMAZOLE 1% CRM 30 GM 1 APPLIC TOP ×2 (10:07→20:39)
[2025-09-06] MEDS: GENTAMICIN 0.3% OPHTH 5 ML 1 DROPS EYE-BOTH ×3 (10:49→18:32)
--- NOTE | 2025-09-06 11:27 | ST.IPDYTX ---
Visit Care Team Role Provider Type Rocío Roberts DO Primary Care Provider Physician Specialty: Family Practice Address: [address] [place] [address], [address], [place], [address] Email: [email or web address] Mary Bolivar PA-C Emergency Provider Advanced Carriage Rider Referring Provider Specialty: Emergency Medicine Address: [address] [place] [address], [id number] Fax: Email: [email or web address] Foster Lua MD Admit Provider Physician Attending Provider Specialty: Hospitalist Address: [address] [place] [address], [id number] Fax: Email: [email or web address] SYSTEM CONFIGURATION SPECIALIST Dysphagia Treatment SYSTEM CONFIGURATION SPECIALIST Dysphagia Treatment Start: 09/06/25 11:14 Freq: Status: Active Protocol: Document 09/06/25 11:14 SS (Rec: 09/06/25 11:27 SS Desktop) Dysphagia Treatment Session Time Visit Start Time 10:55 Visit Stop Time 11:15 Total Visit Minutes 20 Visit Information Visit Number 2 Setting Assessment Location Acute Care Visit Type Note Type Treatment Note Next Note Type Next Note Type Treatment Note Patient Information Identification Type Name,Date of Subjective Chart reviewed and RN consulted. RN reported pt has Observations been more awake/alert, but continues to hallucinate. He declined oral care this morning. Coughing noted when RN attempted free water protocol. Pt sitting in chair upon SYSTEM CONFIGURATION SPECIALIST arrival. He was awake and appeared to be more alert/oriented than yesterday. He was able to converse with SYSTEM CONFIGURATION SPECIALIST, but continued with tangential confused statements. Treatment Liquids Trialed Ice chips,Thin (IDDSI 0) Pharyngeal Sitting Upright (90 deg),Small Bites and Sips Strategies Treatment Activities Oral care completed to minimize colonization of oral pathogens that can increase pt's risk of developing aspiration pneumonia if aspirated. Trials of ice chips and thin liquids via tsp (water) to assess for s/sx of dysphagia. The IDDSI Framework Protocol: IDDSI.1 Assessment Patient Response to Fair Treatment Rehab Potential Fair Assessment of Pt agreeable to oral care with some encouragement. Improvement Intermittent throat clearing and coughing noted prior, potentially indicative of difficulty managing own secretions. Pt demonstrated adequate acceptance and containment across thin liquids and ice chips. He was able to masticate ice chips, though AP transit appeared delayed and effortful. Pt demonstrated immediate coughing inconsistently with both ice chips and water via tsp. Cough strength appeared stronger than yesterday, likely related to overall cognitive function . Did not advance trials given high aspiration risk and concern for silent aspiration. No expectoration of trials noted today. Currently, he presents with indications of oropharyngeal dysphagia and aspiration risk is judged to be high. Oral phase is characterized by slow bolus manipulation and appeared disorganized. Pharyngeal phase cannot be objectively assessed at bedside though subjectively appeared effortful and pt required 2-3 swallows per bolus at times. Pt demonstrated inconsistent s/sx of aspiration with all PO re: immediate coughing. Cough strength is judged to be weak and oral health remains poor increasing complications related to aspiration. Pt does not appear safe for a PO diet at this time with exception of an ice chip/free water protocol to promote oral hygiene and reduce risk of swallow strength decompensation. SYSTEM CONFIGURATION SPECIALIST discussed with RN who expressed understanding of TID oral care and ice cip/free water protocol with 1:1 supervision (stop if overt s/sx of aspiration). Will continue to follow up. As pt has not demonstrated clinical improvements, but is more alert/awake today, recommend MBSS in house to further assess swallow pathophysiology. MD to place order for MBSS. Recommendations Recommendations Continue Current Diet Diet Order NPO Medication Not Recommended by Mouth Recommendations Treatment Plan Placement [facility] Recommendation after Discharge Appropriate for Yes Continued Therapy Therapy NPO with ice chip/free water protocol Recommendations Oral care TID MBSS scheduling pending Referrals/Other Recommended Dietary Consult Referrals
--- NOTE | 2025-09-06 12:52 | OT.IP.TRT ---
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 coma (08/31/25) Occupational Therapy Treatment Note M2 OT-IP Current Condition Start: 09/05/25 09:50 Freq: Status: Active Protocol: Document 09/05/25 09:00 YUMICRUZITO (Rec: 09/05/25 10:07 BRITNI Desktop) Occupational Therapy Current Condition Current Condition Evaluation Date 09/05/25 Treatment Diagnosis ETOH abuse, acute hypokalemia, weakness, decreased self care M3 OT- IP Subjective and Pain Start: 09/05/25 09:50 Freq: Status: Active Protocol: Document 09/06/25 12:37 ANNIDESIREEDEVINCRUZITO (Rec: 09/06/25 12:52 ANNITNKADEEM [id number]) OT- Subjective Occupational Therapy Visit Type Type Treatment Note Visit Start Time 09:10 Visit Stop Time 09:40 Notes Pt was reclined in bed on entrance of OT and agreeable to participating in therapy. Occupational Therapy Visit Comments Patient Comments I need to see someone about my eye, I don't know why it won't stop watering. Patient/Caregiver unable to state Goals OT Pain Assessment Pain Present Pain Present Denied Pain M4 OT- IP ADL's Start: 09/05/25 09:50 Freq: Status: Active Protocol: Document 09/06/25 12:37 ANNIDESIREEDEVINCRUZITO (Rec: 09/06/25 12:52 ANNITNKADEEM [id number]) OT EEE-Qvwc-Cenagsw Comments OT Self-Feeding pt currently NPO Comments OT ADL-Grooming General Evaluation Grooming Ability Minimal Assistance Areas Needing Combing/Brushing Hair Assistance Comments OT Grooming Comments Pt was able to brush the front and sides of his hair but needed assistance for completeness on the back of his head. OT ADL-Oral Care Comments Oral Care Comments not observed OT ADL-Dressing General Eval Lower Body Dressing Maximum Assistance Ability Areas Needing Socks Assistance Comments OT Dressing Comments Pt attempted to doff and don socks while EOB without AD . Pt was unable to reach his feet. OT doffed socks for pt and educated him on use of the sock aid to don socks . Pt attempted to stretch sock over sockaid, but was unable to manage this. OT started sock on aid device and allowed pt to attempt to pull the sock on the rest of the way, he was unable. Pt required total A to apply sock to sock aid, OT then handed handles to patient and helped him lower the sock aid to the floor. Pt was able to get his toes in position but didn't poses the strength to pull up the sock more than a few inches, requiring OT to complete task for him. Overall, with the sockaid, pt requries MAX A OT ADL-Toileting Comments OT Toileting not observed Comments OT ADL-Bathing Comments OT Bathing Comments not observed M5 OT- IP IADL's Start: 09/05/25 09:50 Freq: Status: Active Protocol: Document 09/05/25 09:00 ANNITNDEVINCRUZITO (Rec: 09/05/25 10:07 ANNITNKADEEM Desktop) OT-Instrumental Activities of Daily Living Deficits IADL Deficits Deficits Identified Home Safety Awareness Awareness of Need Decreased Awareness for Assistance at Home Ability to Problem Unable to Problem Solve Solve Emergency Situations Medication Management Medication unsafe to manage himself Management Comments Money Management Money Management needs assistance Comments Meal Preparation Meal Preparation needs assistance Comments Dual Hose Cementer Dual Hose Cementer needs assistance Comments Driving Driving Comments needs assistance M6 OT- IP Functional Cognition Start: 09/05/25 09:50 Freq: Status: Active Protocol: Document 09/06/25 12:37 ANNITNDEVINCRUZITO (Rec: 09/06/25 12:52 [facility] [id number]) Cognitive Factors Limiting Selfcare Function Cognitive Ability Level of Alertness Alert Patient Orientation Name,Situation Attention Span Capable of Focused Attention,Capable of Sustained Ability Attention Ability to Follow Able to Follow One Step Commands with Increased Time, Commands Able to Follow One Step Commands with Repetition Memory Description Short Term Impaired,Working Impaired Safety Awareness Underestimates Need for Assistance Cognitive Tests SLUMS Pt scored a 12/30 on SLUMS which is the equivalent of dementia. Pt was unable to correctly state the year, was able to perform simple math but not simple subtraction, was able to name 12 animals in 60 seconds, was able to recall 3/5 items after a short time, was unable to correctly state three or four digit number backwards, was unable to correctly label a clock, and was able to answer 1/4 questions about a short paragraph. Cognitive Comments Cognitive Assessment Pt presents with significant safety concerns with Comments respect to his cognition. Pt has difficulty with working memory and short term memory. OT- Vision and Hearing OT- Hearing Assessment OT- Hearing WFL Assessment OT- Vision Assessment Visual Acuity WFL,Glasses For Reading M7 OT- IP Mobility and Balance Start: 09/05/25 09:50 Freq: Status: Active Protocol: Document 09/06/25 12:37 ANNITNKADEEM (Rec: 09/06/25 12:52 [facility] [id number]) OT- Bed Mobility Assessment Supine to Sit Supine to Sit Assist Minimal Assistance Scooting Scooting to Edge of Moderate Assistance Bed OT-Transfer Assessment Sit to and From Stand Sit to and from Maximum Assistance,Use of Upper Extremities Stand Transfers Transfer Ability Maximum Assistance Technique Transfer Destination Chair Transfer Technique Stand Step Pivot Devices Transfer Assistive Gait Belt,Front Wheeled Walker Devices Comments Mobility Comments Pt required less assistance to get EOB today. Pt leans posteriorly in standing and requires heavy cues to stand tall and lean forward. Pt initially stood with straight legs but as he transferred to chair he started to bend his knees more. Pt performed stand pivot tf to recliner and began to sit prior to clearing the arm rest requiring OT to manually propel him to the seat cushion. It would be safest to use two person assist with functional tfs at this time. OT- Balance Assessment Sitting Balance and Reactions Static Sitting Fair Balance Ability Dynamic Sitting Fair Balance Ability Standing Balance and Reactions Static Standing Poor Balance Ability Dynamic Standing Poor Balance Ability M8 OT- IP Objective Assessments Start: 09/05/25 09:50 Freq: Status: Active Protocol: Document 09/05/25 09:00 BRITNI (Rec: 09/05/25 10:07 [facility] Desktop) OT Gross Range of Motion Upper Extremity Range of Motion Assessment Within Functional Limits OT Strength Hand Delivery Agent Strength Hand Dominance Right Comments Strength Comments strength not formally assessed, will assess at a later time. M9 OT- IP Assessment and Plan Start: 09/05/25 09:50 Freq: Status: Active Protocol: Document 09/06/25 12:37 BRITNI (Rec: 09/06/25 12:52 [facility] [id number]) OT Summary Assessment and Plan Potential Rehabilitation Fair Potential Analytic Complexity Moderate at Evaluation Summary OT Impairments Balance,Functional Cognition,Functional Mobility,Self- Feeding,Grooming,Dressing,Toileting,Bathing,Toilet Transfers,Shower Transfers,Activity Tolerance Progress Towards Slow Progress due to Medical Issues,Slow Progress due Goals to Cognition Assessment Summary Pt was more awake and alert during tx today. Pt was agreeable to participating. Pt required less assistance with bed mobility. Pt has difficulty standing and tires quickly beginning to sit before it is safe to do so. Pt would be safest to have two person assist with functional tfs at this time. Pt continues to need assist with grooming tasks and scored 12/30 for SLUMS. Pt is most appropriate for SNF. Pt left up in chair with chair alarm set and all needs in reach. Cont per POC. Goals Self-Feeding Goal Independent Grooming Goal Independent Dressing Goal Independent Toileting Goal Independent Bathing Goal Independent Toilet Transfer Goal Independent Shower Transfer Goal Independent Frequency of Treatment Other frequency 5x/wk Treatment Plan OT Treatment Plan ADL Training,Functional Cognition Training,Functional Mobility,Therapeutic Exercises,Patient/Family Education ,Discharge Planning Other Treatment ADLs Recommendations and Next Treatment Focus Discharge Recommendations OT Discharge SNF Rehab Recommendations Transportation Needs Wheelchair/Cabulance at Discharge
[2025-09-06] MEDS: LACTULOSE 20 GM/30 ML SOLUTION PO ×2 (15:54→20:31)
--- NOTE | 2025-09-06 16:00 | DIET.PN1 ---
Dietary Progress Note Assessment: F/u, EMR reviewed, pt not alert enough for assessment. Pt/family declined hospice plan. Made NPO on 09/05. Low PO intakes before then: 0-50%. Diet was advanced again today based on MBSS/CAP BLOCKER eval. Pt is more alert today per chart. Ht: 165.1 cm Wt: 70 kg BMI: 25.7 Last BM: 09/05/25 (09/05/25 18:22) MNA: 10 Junior Score: 17 Diet: 09/05/25 12:55 NPO Diet Diet Modifications: NPO Type: NPO Free Water Protocol 09/06/25 Dinner Dysphagia Diet Diet Modifications: Pyote thick liquids with free water protocol Food Texture: Level 6-Soft & Bite-sized Liquid Consistency: Level 1 - Slightly Thick Nutrition Percent Meal Consumed NPO 09/06/25 06:00 Percent Meal Consumed 25% 09/05/25 09:05 Labs: RBC 2.62 X10^6/uL (4.5-5.9) L 09/02/25 11:47 Hgb 9.6 g/dL (13.5-17.5) L 09/02/25 11:47 Hct 27.8 % (41-53) L 09/02/25 11:47 Creatinine 0.50 mg/dL (0.66-1.25) L 09/04/25 10:28 Lactate 2.2 mmol/L (0.7-2.1) H 08/31/25 15:33 Nutrition Diagnosis: Severe protein calorie malnutrition in context of chronic illness r/t excessive EtOH intakes and inadequate intakes as evidenced by liver failure, reported to drink 1-2 quarts hard liquor per day, <50% of estimated energy needs for 7 days Interventions: Ensure+ with meals, thickened to level 1 EER: 1750 kcals (25 kcals/kg per BMI) 70-85 g protein (1-1.2g/kg per adult maintenance/acute liver failure) Monitoring/Evaluations: po intakes, ONS tolerance Electronically Signed by: Anitra Hardin 09/06/25 16:[address] [address]
--- NOTE | 2025-09-06 16:26 | CM.DPNOTE ---
DCP Continued: Reviewed EMR and team rounds for pt?s medical status. Per hospitalist, patient is more awake but more verbally aggressive today. Anticipating a Hospice vs. SNF plan, pending acceptance. Per Speech Therapy, pt scored a 12/30 on SLUMS and currently pending a barium swallow study. Per RN, pt confused, experiencing visual hallucinations; states it is suspected to not be ETOH withdrawal related because it has been a week since admission. Per [facility] , pt mother completed informational call and ultimately declined Hospice services at this time as they are attempting SNF Rehab plan. SOUND DESIGNER queried [facility] about referral status, it is reported that pt has been declined due to their lack of bed availability. SOUND DESIGNER queried [facility], it is reported that pt has been declined due to pt behaviors. SOUND DESIGNER queried [facility] about referral status, they are requesting more information of pt Fentanyl use/frequency as they read reports from pt's mother that substances were found in his house by pt son. Utox only screened for ETOH on 08/31/25. SOUND DESIGNER attempted to speak with pt re: substance use but per RN, pt not alert and oriented for that assessment. SOUND DESIGNER notified hospitalist of above developments. Plan: Pending SNF Rehab acceptance. CM Team will continue to follow for coordination of discharge plans. ERNIE Oconnor
--- NOTE | 2025-09-06 16:47 | ST.SWALLOW ---
Visit Care Team Role Provider Type Rocío Roberts DO Primary Care Provider Physician Specialty: Family Practice Address: [address] [place] [address], [address], [place], [address] Email: [email or web address]-C Emergency Provider Advanced Sales Analytics Manager Referring Provider Specialty: Emergency Medicine Address: [address] [place] [address], [id number] Fax: Email: Foster Lua MD Admit Provider Physician Attending Provider Specialty: Hospitalist Address: [address] [place] [address], [id number] Fax: Email: [email or web address] Modified Barium Swallow Study MEDIA RELATIONS ASSOCIATE Modified Barium Swallow Study Start: 09/06/25 15:05 Freq: Status: Active Protocol: Document 09/06/25 15:05 LNK (Rec: 09/06/25 16:47 LNK Desktop) Modified Barium Swallow Study Total Time Visit Start Time 13:00 Visit Stop Time 13:45 Total Visit Minutes 45 Referral Reason for Referral Dysphagia Setting Setting Acute Care Patient Information Identification Type Name,Date of Patient History Pt admitted to the ED 09/01/2025 for left sided back pain/concerned for pancreatitis x3 weeks. Patient drinks about a qt of rum a day. He has a history of withdrawal seizures. Per progress notes, pt has been quite confused and appears to have dysphagia. Initial clinical swallowing evaluation (09/05/2025) indicated moderate oral phase dysphagia characterized by difficulty with bolus retrieval, containment, manipulation, and clearance and concern for pharyngeal phase dysphagia given presence of consistent overt signs/symptoms of aspiration (coughing , wet vocal quality). Pt was placed on NPO status pending MBSS. This morning was reportedly awake and appeared to be more alert/oriented. PO trials demonstrated immediate coughing inconsistently with both ice chips and water via tsp. Cough strength appeared stronger. Pt did not appear safe for a PO at that time. MBSS was ordered to further assess swallow function Subjective Pt was brought to the fluoroscopy suite in flouro chair Observations . Pt appeared to be somnolent and had difficulty keeping eyes open. With encouragement, pt was more alert and agreed to MBSS,. The procedure was described to the pt who indicated he understood. Patient Positioning Position View Lateral Imaging Lateral View Textures Administered Trials Presented Thin Liquid via Spoon (IDDSI 0),Thin Liquid via Cup ( IDDSI 0),Mildly Thick Liquid via Spoon (IDDSI 2), Extremely Thick Liquid via Spoon (IDDSI 4),Regular ( IDDSI 7) Barium Tablet Yes The IDDSI Framework Protocol: IDDSI.1 Oral Impairment Source: The Modified Barium Swallow Impairment Profile (MBSImP??) Lip Closure Interlabial escape; no progression to anterior lip Tongue Control Posterior escape of greater than half of bolus During Bolus Hold Bolus Preparation/ Disorganized chewing/mashing with solid pieces of bolus Mastication unchewed Bolus Transport/ Repetitive/disorganized tongue motion Lingual Motion Oral Residue Residue collection on oral structures Location Tongue Initiation of Bolus head at pyriforms Pharyngeal Swallow Additional Oral *OME was observed to be grossly WNL. Lingual Impairment lateralization was disorganized. Observations *Pt?s oral health observed to be poor with his own dentition. He is missing multiple teeth with significant decay noted. MEDIA RELATIONS ASSOCIATE reported performing oral care for the pt this morning. *DKS noted to be adequate. Speech was mildly slurred with soft voice. *Mastication was observed to be mildly disorganized with solid pieces unchewed and delayed AP transition *Initiation of swallow delayed with premature spillage of greater that half of bolus pre swallow *Pt unable to move barium tablet A-P. He eventually spit tablet out Mild-moderate oral phase dysphagia observed Pharyngeal Impairment Source: The Modified Barium Swallow Impairment Profile (MBSImP??) Soft Palate Trace column of contrast between soft palate & Elevation pharyngeal wall Laryngeal Elevation Comp.sup.move.thyroid cart.w/comp.approx.arytenoids to epiglot petiole Anterior Hyoid Complete anterior movement Excursion Epiglottic Movement Partial inversion Laryngeal Vestibular Incomplete; narrow column air/contrast in laryngeal Closure vestibule Pharyngeal Stripping Present - diminished Wave Pharyngoesophageal Complete distention & complete duration; no obstruction Segment Opening of flow Tongue Base Narrow column of contrast/air betwn tongue base & post. Retraction pharyngeal wall Pharyngeal Residue Collection of residue within/on pharyngeal structures Location Diffuse (>3 areas) Additional *Hyoid/laryngeal elevation was judged to be adequate. Pharyngeal *Epiglottic inversion was mildly weak resulting in Impairment laryngeal penetration of thin liquids with consecutive Observations swallows (high volume, fast rate) *Tongue base retraction was mildly reduced resulting in pharyngeal residue in valeculla and pyriform sinuses *Pharyngeal stripping wave and cricopharyngeal opening appeared grossly adequate and did not appear to impede bolus flow. *Post-swallow residue was primarily at the base of tongue, vallecula and pyriform sinuses with thin liquids . *Laryngeal penetration of thin liquid was observed x4 to contact the vocal folds with visible laryngeal residue (PAS 5) Spontaneous hard cough cleared laryngeal residue *No penetration observed with nectar thick liquid *No tracheal aspiration was observed. Mild-moderate pharyngeal phase dysphagia A/P View The IDDSI Framework Protocol: IDDSI.1 A/P View Observations Additional A-P No AP trials due to overall pt weakness Observations Clinical Impressions Dysphagia Type Oral,Pharyngeal Findings PLEASE REVIEW ABOVE OBSERVATIONS (ORAL/PHARYNGEAL) FOR DETAILS *Mild-moderate oral and pharyngeal dysphagia observed. Appears to vary depending on pt alertness *With consecutive swallows of thin liquids via straw, laryngeal penetration was observed with residue noted within larynx. Pt unable to lift cup up to his mouth *Pt's intake of liquids with a straw was judges to be impulsive. *Spontaneous cough observed to be effective in clearing residue. Pt's overall mentation was poor with repeated cues to open eyes and keep head upright *[place] thick liquids recommended until pt's mentation and ability to remain awake is noted. Free water protocol OK. *Soft and bite-sized solid foods are recommended as pt was able to masticate and swallow solid trials without difficulty *Medications should be presented in a carrier as pt was unable to swallow or move tablet AP, eventually spiting tablet out Recommend diet advancement as indicated Rehabilitation Good Potential Patient Appropriate Yes: If pt discharges to SNF, dysphagia therapy is for Therapy recommended Recommendations Diet Liquids Order Mildly Thick (IDDSI 2) Diet Order Soft & Bite-sized (IDDSI 6) Medication Whole in Carrier,Crushed in Carrier Recommendation Aspiration Precautions Recommended Upright at 90 Degrees Precautions Additional Monitor sor impulsive intake Precautions Treatment Plan Therapy Inpatient Speech Therapy,Outpatient Speech Therapy Recommendations Placement Group Home Facility Recommendation After Discharge
[2025-09-06 17:29] VITALS: BP 115/65; PULSE 74; RESP 20; TEMP 36.8; O2SAT 93
[2025-09-06 20:42] VITALS: BP 113/79; PULSE 85; RESP 20; TEMP 36.9; O2SAT 93
[2025-09-07 04:00] VITALS: BP 120/78; PULSE 81; RESP 18; TEMP 36.3; O2SAT 92
--- NOTE | 2025-09-07 07:43 | P.PN_ITS ---
Subjective Subjective Interval history: Interval history: 09/01: Patient is less somnolent today but does not make meaningful verbal responses bilirubin has dropped to 7.8 from 10 pneumonia has dropped from 72-62 potassium was 2.9 09/02: Today patient is less somnolent but still quite confused and somnolent patient appears to have dysphagia bilirubin has de-escalated to 6.5 potassium 3.1 09/03: More alert with improved labs. Weaned phenobarbital. Bili 6.5, NH3 42. 09/05: More alert and most recent Bilirubin is 7.0. AST 97, alk phos 239. Patient and his mother who is POA agreed that other family members could be briefed. Daughter is nurse and granddaughter is a physician. Discussed with his son today. Appropriate for hospice and will need shelter care. Tinea pedis rash to be treated. Minimal swallowing noted by speech therapy. Self feeding very limited noted on OT eval. 09/06: Much more alert and verbally argumentative today. He is demanding to go home but is not capable of understanding his physical limitations. Discussed with son who is present. He is not dropping the food down his shirt today but is still unable to swallow so a modified barium swallow will be done. Ammonia level yesterday was less than 9. S: He was somewhat lethargic but interactive. He is. He is in a hotel and can not state what year it was. He wants to go home, denies pain. NAD, alert and oriented to person. Speech fluency improving. Eyes are caked shut with pustular discharge. Lungs are clear, normal rate and effort. Heart is regular, no murmur gallop or rub. Abdomen is soft, very distended. Extremities are free of edema. Jaundice-quite otero appearing. Flaking rash on both feet improving. A/P: 1. Acute alcohol withdrawal, active. 2. Liver failure, active. 3. Alcohol use disorder, active. 4. Dysphagia 5. Hepatic Encephalopathy 6. Tinea Pedis 7. Conjunctivitis PLAN: -stopped phenobarbital. Continue Lactulose. -Monitor LFTs (stable) -Out of bed as able. -Speech therapy suggests NPO. MBS ordered. OT and PT evals. -continue IV fluid. -Hospice and SNF discussed with multiple family members. -clotrimazole for tinea pedis -gentamicin eyedrops for conjunctivitis. -discharge planning, check labs. He appears to have a poor prognosis, family has become quite involved (son is local, mother has POA and is out of state, daughter is a nurse, granddaughter is a physician). The patient does not appear to be able to discharge home and appears to be nearing the end of his life due to his severe liver disease. Exam Vital Signs (past 8 hours): - 09/07/25 04:00 Temperature 97.4 F L Pulse Rate 81 Respiratory Rate 18 Blood Pressure 120/78 Pulse Oximetry 92 Fraction of Inspired Oxygen 2 SaO2/FiO2 Ratio 332 Oxygen Delivery Method Room Air Oxygen Flow Rate 0 Objective Labs 09/02/25 11:47 09/04/25 10:28 [facility] Medical History Tobacco dependence Alcohol use disorder, moderate, dependence Fentanyl use disorder, mild, abuse Seizures Amputation finger Onychomycosis Chronic pancreatitis Alcoholic pancreatitis Fracture of finger, distal phalanx, open Fracture of finger, middle phalanx, open Alcohol abuse Back pain Surgical History History of surgical amputation of finger Family History Mother Osteoarthritis Father Alcohol abuse Medical history unknown Social History household members: none Smoking Status: Current every day smoker alcohol intake: current substance use type: marijuana Assessment & Plan Time-Based Coding :: [TOTAL MINUTES] spent with patient and on the chart (including review of chart, obtaining history, exam, reviewing outside data, placing orders, documenting exam and treatment plan, and counseling patient) on [DATE]. Quality VTE Deep Vein Thrombosis/Pulmonary Embolism Present on Admission: No
[2025-09-07] MEDS: MULTIVITAMIN 1 TABLET 1 TAB PO (08:49)
[2025-09-07] MEDS: GENTAMICIN 0.3% OPHTH 5 ML 1 DROPS EYE-BOTH ×5 (08:49→23:01)
[2025-09-07] MEDS: ENOXAPARIN 40 MG/0.4 ML SYRINGE SUBCUT (08:49)
[2025-09-07] MEDS: LACTULOSE 20 GM/30 ML SOLUTION PO ×3 (08:49→23:00)
[2025-09-07] MEDS: THIAMINE 100 MG in SODIUM CHLORIDE 0.9% 100 ML 404 MG IV (08:49)
[2025-09-07] MEDS: FOLIC ACID 1 MG TABLET PO (08:49)
[2025-09-07] MEDS: NICOTINE 14 PATCH 14 MG TOP (08:50)
[2025-09-07 09:16] VITALS: BP 112/80; PULSE 104; RESP 16; TEMP 36.4; O2SAT 96
--- NOTE | 2025-09-07 09:37 | SLP.IPNOTE ---
Addendum entered and electronically signed by Vasyl Moss 09/07/25 15:00: Session attempted again around 14:45. Pt's uneaten lunch tray in room. Encouraged pt to try to consume some of his meal for ASSISTANT SUPERINTENDENT to assess diet tolerance. pt adamant that he does not want to eat/drink. ASSISTANT SUPERINTENDENT offered different texture/temperature boluses and assistance with self-feeding, though pt continued to decline and became visibly upset. Per RN, pt requiring more supervision this afternoon as he was combative and attempting to leave room despite physical condition. Spoke with personal care aid re: need for potential goals of care conversation with family as minimal progress made with speech therapy. Continue to follow-up. Addendum entered and electronically signed by Vasyl Moss 09/07/25 11:32: Session attempted again around 11:20 am, though pt again declined any PO intake. His ability to comprehend MBSS results seems limited at this time given overall alertness/mentation. ASSISTANT SUPERINTENDENT to follow-up. Original Note: Session attempted around 9:30 am. Pt stating he was full as he just ate, however breakfast tray mostly untouched. Encouraged pt to complete oral care and consume some of his breakfast, though pt declined. He continued to remain alert, but confused and disoriented. RN reported ongoing minimal intake. ASSISTANT SUPERINTENDENT to follow up later in day to assess tolerance of current diet.
--- NOTE | 2025-09-07 11:08 | OT.IP.TRT ---
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 coma (08/31/25) Occupational Therapy Treatment Note M2 OT-IP Current Condition Start: 09/05/25 09:50 Freq: Status: Active Protocol: Document 09/05/25 09:00 ANNIMINA (Rec: 09/05/25 10:07 YUMICRUZITO Desktop) Occupational Therapy Current Condition Current Condition Evaluation Date 09/05/25 Treatment Diagnosis ETOH abuse, acute hypokalemia, weakness, decreased self care M3 OT- IP Subjective and Pain Start: 09/05/25 09:50 Freq: Status: Active Protocol: Document 09/07/25 10:52 ANNIMINA (Rec: 09/07/25 11:08 [facility] [id number]) OT- Subjective Occupational Therapy Visit Type Type Treatment Note Visit Start Time 10:30 Visit Stop Time 10:46 Notes Pt was up in recliner with meal before him on entrance of OT. Pt agreeable to getting washed up for OT. Occupational Therapy Visit Comments Patient Comments I'm just so full and tired I think I'm getting stronger. Patient/Caregiver unable to state Goals OT Pain Assessment Pain Present Pain Present Denied Pain M4 OT- IP ADL's Start: 09/05/25 09:50 Freq: Status: Active Protocol: Document 09/07/25 10:52 ANNIDESIREEDEVINCRUZITO (Rec: 09/07/25 11:08 [facility] [id number][facility] OT SSJ-Mdus-Ueuubum Comments OT Self-Feeding Pt had breakfast before him. It appears that he has had Comments a few bites of apple sauce and yogurt. Pt declined eating more stating I'm just so full OT ADL-Grooming General Evaluation Grooming Ability Minimal Assistance Areas Needing Combing/Brushing Hair Assistance Comments OT Grooming Comments Pt was able to brush the front and sides of his hair but continues to need assistance for completeness. Pt needs OT to finish the back of his head. OT ADL-Oral Care Comments Oral Care Comments pt declines to perform OT ADL-Dressing General Eval Upper Body Dressing Maximum Assistance Ability Comments OT Dressing Comments Pt donned a new gown after performing sponge bath. He is able to lift his arms to assist, but takes no active role in pulling the sleeves up despite cues. Pt declines all LB dressing despite encouragement. Pt was still sitting on doffed gown, pt unable to come to full stand with OT to remove. He is able to assist with UEs to come to lift hips off the surface of the chair with MAX A while OT removed doffed gown. OT ADL-Toileting Comments OT Toileting not observed. Pt is utilizing a catheter and a brief at Comments time of tx. OT ADL-Bathing Bathing Type Bathing Type Sponge Bath General Evaluation Bathing Ability Moderate Assistance Comments OT Bathing Comments Pt performed sponge bath while up in chair. Initially pt is able to reach into basin and wet and wring out cloth, but as bathing progresses he becomes less alert and less able to do this task. Pt washes his face without cues. Pt washes his chest, stomach, UEs, and upper legs with cues to sequence and continue. OT washes pts back. Pt declines washing LEs but allows OT to wash for him. M5 OT- IP IADL's Start: 09/05/25 09:50 Freq: Status: Active Protocol: Document 09/05/25 09:00 BRITNI (Rec: 09/05/25 10:07 BRITNI Desktop) OT-Instrumental Activities of Daily Living Deficits IADL Deficits Deficits Identified Home Safety Awareness Awareness of Need Decreased Awareness for Assistance at Home Ability to Problem Unable to Problem Solve Solve Emergency Situations Medication Management Medication unsafe to manage himself Management Comments Money Management Money Management needs assistance Comments Meal Preparation Meal Preparation needs assistance Comments Customer Marketing Manager Customer Marketing Manager needs assistance Comments Driving Driving Comments needs assistance M6 OT- IP Functional Cognition Start: 09/05/25 09:50 Freq: Status: Active Protocol: Document 09/06/25 12:37 BRITNI (Rec: 09/06/25 12:52 BRITNI [id number]) Cognitive Factors Limiting Selfcare Function Cognitive Ability Level of Alertness Alert Patient Orientation Name,Situation Attention Span Capable of Focused Attention,Capable of Sustained Ability Attention Ability to Follow Able to Follow One Step Commands with Increased Time, Commands Able to Follow One Step Commands with Repetition Memory Description Short Term Impaired,Working Impaired Safety Awareness Underestimates Need for Assistance Cognitive Tests SLUMS Pt scored a 12/30 on SLUMS which is the equivalent of dementia. Pt was unable to correctly state the year, was able to perform simple math but not simple subtraction, was able to name 12 animals in 60 seconds, was able to recall 3/5 items after a short time, was unable to correctly state three or four digit number backwards, was unable to correctly label a clock, and was able to answer 1/4 questions about a short paragraph. Cognitive Comments Cognitive Assessment Pt presents with significant safety concerns with Comments respect to his cognition. Pt has difficulty with working memory and short term memory. OT- Vision and Hearing OT- Hearing Assessment OT- Hearing WFL Assessment OT- Vision Assessment Visual Acuity WFL,Glasses For Reading M7 OT- IP Mobility and Balance Start: 09/05/25 09:50 Freq: Status: Active Protocol: Document 09/06/25 12:37 [facility] (Rec: 09/06/25 12:52 [facility] [id number]) OT- Bed Mobility Assessment Supine to Sit Supine to Sit Assist Minimal Assistance Scooting Scooting to Edge of Moderate Assistance Bed OT-Transfer Assessment Sit to and From Stand Sit to and from Maximum Assistance,Use of Upper Extremities Stand Transfers Transfer Ability Maximum Assistance Technique Transfer Destination Chair Transfer Technique Stand Step Pivot Devices Transfer Assistive Gait Belt,Front Wheeled Walker Devices Comments Mobility Comments Pt required less assistance to get EOB today. Pt leans posteriorly in standing and requires heavy cues to stand tall and lean forward. Pt initially stood with straight legs but as he transferred to chair he started to bend his knees more. Pt performed stand pivot tf to recliner and began to sit prior to clearing the arm rest requiring OT to manually propel him to the seat cushion. It would be safest to use two person assist with functional tfs at this time. OT- Balance Assessment Sitting Balance and Reactions Static Sitting Fair Balance Ability Dynamic Sitting Fair Balance Ability Standing Balance and Reactions Static Standing Poor Balance Ability Dynamic Standing Poor Balance Ability M8 OT- IP Objective Assessments Start: 09/05/25 09:50 Freq: Status: Active Protocol: Document 09/05/25 09:00 ANNIARKADEEM (Rec: 09/05/25 10:07 [facility] Desktop) OT Gross Range of Motion Upper Extremity Range of Motion Assessment Within Functional Limits OT Strength Hand Materials Specialist Strength Hand Dominance Right Comments Strength Comments strength not formally assessed, will assess at a later time. M9 OT- IP Assessment and Plan Start: 09/05/25 09:50 Freq: Status: Active Protocol: Document 09/07/25 10:52 ANNIARKADEEM (Rec: 09/07/25 11:08 [facility] [id number]) OT Summary Assessment and Plan Potential Rehabilitation Fair Potential Analytic Complexity Moderate at Evaluation Summary OT Impairments Balance,Functional Cognition,Functional Mobility,Self- Feeding,Grooming,Dressing,Toileting,Bathing,Toilet Transfers,Shower Transfers,Activity Tolerance Progress Towards Slow Progress due to Medical Issues,Slow Progress due Goals to Cognition Assessment Summary Pt was less alert during todays tx. Pt needed heavy cues to open his eyes. Pt c/o being sleepy throughout tx. Pt continues to be unrealistic about his physical abilities and overall impaired safety awareness. After failed attempt at standing, pt states I think I'm getting stronger and expected to be able to return home soon, OT reminded pt that he was unable to come to full standing. Pt was able to participate in sponge bath with MODA, he needed assist with his back and LEs. Continue to recommend SNF. Pt left up in chair with chair alarm set and all needs in reach. Cont per POC. Goals Self-Feeding Goal Independent Grooming Goal Independent Dressing Goal Independent Toileting Goal Independent Bathing Goal Independent Toilet Transfer Goal Independent Shower Transfer Goal Independent Frequency of Treatment Other frequency 5x/wk Treatment Plan OT Treatment Plan ADL Training,Functional Cognition Training,Functional Mobility,Therapeutic Exercises,Patient/Family Education ,Discharge Planning Other Treatment ADLs, functional tfs Recommendations and Next Treatment Focus Discharge Recommendations OT Discharge SNF Rehab Recommendations Transportation Needs Wheelchair/Cabulance at Discharge
[2025-09-07] MEDS: CLOTRIMAZOLE 1% CRM 30 GM 1 APPLIC TOP ×2 (12:03→23:01)
--- NOTE | 2025-09-07 12:03 | PT.IPTN ---
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 coma (08/31/25) Physical Therapy Treatment Note M2 PT-IP Current Condition Start: 09/03/25 12:04 Freq: NEEDED Status: Active Protocol: Document 09/03/25 12:05 SAK (Rec: 09/03/25 12:16 SAK [id number]) Physical Therapy Current Condition Current Condition Evaluation Date 09/03/25 Treatment Diagnosis weakness Onset Date 08/31/25 M3 PT-IP Subjective Start: 09/03/25 12:04 Freq: NEEDED Status: Active Protocol: Document 09/07/25 11:28 DCW (Rec: 09/07/25 12:14 DCW [id number]) Subjective Physical Therapy Visit Type Type Treatment Note Visit Start Time 11:28 Visit Stop Time 12:03 Number of GLOBAL CMO Visits 0 Physical Therapy Visit Comments Patient Comments Pt sliding off recliner as PT and RN entered room, attempting to sit on foot section of recliner. PT and RN able to slide pt back up into chair. Pt noting wanting to get back to bed, but also notes he may have pooped. M4 PT-IP Mobility and Gait Start: 09/03/25 12:04 Freq: NEEDED Status: Active Protocol: Document 09/07/25 11:28 DCW (Rec: 09/07/25 12:14 DCW [id number]) PT-Transfer Assessment Sit to and From Stand Sit to and from Maximum Assistance,2 Person Assistance Stand Equipment Transfer Assistive Gait Belt,Front Wheeled Walker Device Transfers Transfer Destination Bed,Chair,Bedside Commode Transfer Technique Stand Step Pivot Transfer Ability Level of Assist Maximum Assistance,2 Person Assistance Comments Mobility Comments Pt standing upright from recliner, Max Ax2 with constant verbal cueing. Step-pivot to BSC Max Ax2. Standing at BSC following BM Max Ax2, CASE OPERATOR performing pericare. Step-pivot transfer Max Ax2 BSC -> Bed. Max Ax1 to get legs into bed. PT-Balance Assessment Sitting Balance and Reactions Static Sitting Poor Balance Ability Dynamic Sitting Poor Balance Ability Standing Balance and Reactions Static Standing Poor Balance Ability Dynamic Standing Poor Balance Ability Device Used FWW, gait belt M5 PT-IP Objective Assessments Start: 09/03/25 12:04 Freq: NEEDED Status: Active Protocol: Document 09/07/25 11:28 DCW (Rec: 09/07/25 12:14 DCW [id number]) Orientation Orientation/Cognition Level of Alertness [place] Safety Awareness Decreased Safety Awareness M6 PT-IP Treatment Start: 09/03/25 12:04 Freq: NEEDED Status: Active Protocol: Document 09/05/25 14:18 SAK (Rec: 09/05/25 14:25 SAK [id number]) Physical Therapy Treatment Exercises Exercises Ankle Pumps,Heel Slides,Seated Knee Flexion/Extension M7 PT-IP Assessment and Plan Start: 09/03/25 12:04 Freq: NEEDED Status: Active Protocol: Document 09/07/25 11:28 DCW (Rec: 09/07/25 12:14 DCW [id number]) PT Summary Assessment and Plan Summary Impairments Strength,Balance,Cognition,Bed Mobility,Transfers,Gait, Activity Tolerance Assessment Summary Pt sliding out of recliner as PT arrived, required Max Ax2 to slide back into chair. Pt required Max Ax2 for all mobility and transfers today. Unable to get from BSC to bed, so bed had to be moved closer so pt could perform step-pivot, but pt gave up half way through transfer and just leaned into the bed. Sitting EOB, pt then attempted to just flop backwards, needed to be redirected so head was at head of bed. Max Ax1 to get legs into bed. Pt was left with RN and CASE OPERATOR performing pt care. Pt requires significant assistance with all activities, poor safety awareness Goals Gait Distance 150 Days to Meet Goals 10 Frequency of Treatment Frequency Of Once a Day Treatment Treatment Plan Physical Therapy Bed Mobility Training,Transfer Training,Gait Training, Treatment Plan Therapeutic Exercise,Balance Retraining,Discharge Planning Other FWW for gait as needed for safe gait for home Recommendations and Next Treatment Focus Recommendations To Nursing Amount of Assist 2 Person Assist Needed Discharge Recommendations PT Discharge SNF Rehab Recommendations
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
[2025-09-07 17:00] VITALS: BP 107/67; PULSE 90; RESP 18; TEMP 36.6; O2SAT 97
[2025-09-07 23:00] VITALS: BP 110/70; PULSE 78
[2025-09-07 23:28] VITALS: RESP 18; TEMP 36.1; O2SAT 90
[2025-09-08] MEDS: GENTAMICIN 0.3% OPHTH 5 ML 1 DROPS EYE-BOTH ×4 (05:54→21:48)
[2025-09-08 08:00] VITALS: BP 100/69; PULSE 85; RESP 25; TEMP 36.4; O2SAT 90
[2025-09-08] MEDS: NICOTINE 14 PATCH 14 MG TOP (08:24)
[2025-09-08] MEDS: LACTULOSE 20 GM/30 ML SOLUTION PO ×2 (08:24→21:35)
[2025-09-08] MEDS: ENOXAPARIN 40 MG/0.4 ML SYRINGE SUBCUT (08:24)
[2025-09-08] MEDS: FOLIC ACID 1 MG TABLET PO (08:25)
[2025-09-08] MEDS: MULTIVITAMIN 1 TABLET 1 TAB PO (08:26)
--- NOTE | 2025-09-08 08:54 | P.PN_ITS ---
Subjective Subjective Interval history: 09/01: Patient is less somnolent today but does not make meaningful verbal responses bilirubin has dropped to 7.8 from 10 pneumonia has dropped from 72-62 potassium was 2.9 09/02: Today patient is less somnolent but still quite confused and somnolent patient appears to have dysphagia bilirubin has de-escalated to 6.5 potassium 3.1 09/03: More alert with improved labs. Weaned phenobarbital. Bili 6.5, NH3 42. 09/05: More alert and most recent Bilirubin is 7.0. AST 97, alk phos 239. Patient and his mother who is POA agreed that other family members could be briefed. Daughter is nurse and granddaughter is a physician. Discussed with his son today. Appropriate for hospice and will need senior care care. Tinea pedis rash to be treated. Minimal swallowing noted by speech therapy. Self feeding very limited noted on OT eval. 09/06: Much more alert and verbally argumentative today. He is demanding to go home but is not capable of understanding his physical limitations. Discussed with son who is present. He is not dropping the food down his shirt today but is still unable to swallow so a modified barium swallow will be done. Ammonia level yesterday was less than 9. 09/07: Wax and waning mental status, not oriented to place or year. Required some Ativan for impulsive behavior. S: He was more alert and interactive. He is oriented to hospital and year today. NAD, alert and oriented to person. Speech fluency good. Eyes are open. Lungs are clear, normal rate and effort. Heart is regular, no murmur gallop or rub. Abdomen is soft, very distended. Extremities are free of edema. Jaundice-quite otero appearing. Flaking rash on both feet improving. A/P: 1. Acute alcohol withdrawal, resolved. 2. Liver failure, active. 3. Alcohol use disorder, active. 4. Dysphagia 5. Hepatic Encephalopathy, improving. 6. Tinea Pedis 7. Conjunctivitis 8. He was severe weakness and debilitation, has a 2 person assist to stand and transfer. PLAN: -he has been declined by numerous senior care facilities. -he was not stable enough to be discharged home. -there was no family support plan for discharge home. -there has not been a depressed interest by family in hospice. DISPO: TBD Exam Vital Signs (past 8 hours): - 09/08/25 08:00 Temperature 97.6 F Pulse Rate 85 Respiratory Rate 25 H Blood Pressure 100/69 Pulse Oximetry 90 L Oxygen Flow Rate 0 Fraction of Inspired Oxygen 2 SaO2/FiO2 Ratio 332 Oxygen Delivery Method Room Air Oxygen Flow Rate 0 Objective Labs 09/02/25 11:47 09/04/25 10:28 [facility] Medical History Tobacco dependence Alcohol use disorder, moderate, dependence Fentanyl use disorder, mild, abuse Seizures Amputation finger Onychomycosis Chronic pancreatitis Alcoholic pancreatitis Fracture of finger, distal phalanx, open Fracture of finger, middle phalanx, open Alcohol abuse Back pain Surgical History History of surgical amputation of finger Family History Mother Osteoarthritis Father Alcohol abuse Medical history unknown Social History household members: none Smoking Status: Current every day smoker alcohol intake: current substance use type: marijuana Assessment & Plan Time-Based Coding :: [TOTAL MINUTES] spent with patient and on the chart (including review of chart, obtaining history, exam, reviewing outside data, placing orders, documenting exam and treatment plan, and counseling patient) on [DATE]. Quality VTE Deep Vein Thrombosis/Pulmonary Embolism Present on Admission: No
[2025-09-08] MEDS: THIAMINE 100 MG in SODIUM CHLORIDE 0.9% 100 ML 404 MG IV (10:14)
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
--- NOTE | 2025-09-08 15:36 | PT.IPTN ---
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 coma (08/31/25) Physical Therapy Treatment Note M2 PT-IP Current Condition Start: 09/03/25 12:04 Freq: NEEDED Status: Active Protocol: Document 09/03/25 12:05 SAK (Rec: 09/03/25 12:16 SAK [id number]) Physical Therapy Current Condition Current Condition Evaluation Date 09/03/25 Treatment Diagnosis weakness Onset Date 08/31/25 M3 PT-IP Subjective Start: 09/03/25 12:04 Freq: NEEDED Status: Active Protocol: Document 09/08/25 15:43 NW (Rec: 09/08/25 15:49 NW [id number]) Subjective Physical Therapy Visit Type Type Treatment Note Visit Start Time 15:23 Visit Stop Time 15:36 Physical Therapy Visit Comments Patient Comments Pt is resting in semi-lopez position. Pt has a coal miner in entry way of door to visit with. Pt states he will to sit up in bed side chair to visit with the coal miner. Pt is only orientated to self at the time of asking questions. Patient Goals To go home. M4 PT-IP Mobility and Gait Start: 09/03/25 12:04 Freq: NEEDED Status: Active Protocol: Document 09/08/25 15:43 NW (Rec: 09/08/25 15:49 NW [id number]) PT-Bed Mobility Assessment Supine to Sit Supine to Sit Contact Guard Assistance,Head of Bed Elevated,Bedrails Scooting Scooting to Edge of Minimal Assistance Bed PT-Transfer Assessment Sit to and From Stand Sit to and from Moderate Assistance,1 Person Assistance Stand Equipment Transfer Assistive Gait Belt,Front Wheeled Walker Device Transfers Transfer Destination Chair Transfer Technique Stand Pivot Transfer Ability Level of Assist Maximum Assistance,1 Person Assistance Comments Mobility Comments Step by step cues utilized with hand over hand assist with AD with second person. Gait Assessment Comments Gait Comments Pt is unable to ambulate at this time. PT-Balance Assessment Sitting Balance and Reactions Static Sitting Good Balance Ability Dynamic Sitting Fair Balance Ability Standing Balance and Reactions Static Standing Poor Balance Ability Dynamic Standing Poor Balance Ability Device Used FWW, gait belt M5 PT-IP Objective Assessments Start: 09/03/25 12:04 Freq: NEEDED Status: Active Protocol: Document 09/07/25 11:28 DCW (Rec: 09/07/25 12:14 DCW [id number]) Orientation Orientation/Cognition Level of Alertness [place] Safety Awareness Decreased Safety Awareness M6 PT-IP Treatment Start: 09/03/25 12:04 Freq: NEEDED Status: Active Protocol: Document 09/05/25 14:18 SAK (Rec: 09/05/25 14:25 SAK [id number]) Physical Therapy Treatment Exercises Exercises Ankle Pumps,Heel Slides,Seated Knee Flexion/Extension M7 PT-IP Assessment and Plan Start: 09/03/25 12:04 Freq: NEEDED Status: Active Protocol: Document 09/08/25 15:43 NW (Rec: 09/08/25 15:49 NW [id number]) PT Summary Assessment and Plan Summary Impairments Strength,Balance,Cognition,Bed Mobility,Transfers,Gait, Activity Tolerance Progress Towards Slow Progress - Other Goals Assessment Summary Alvin is found resting in bed and is agreeable to perform transfer into chair to visit with coal miner. Pt is only orientated to self and requires step by step cues with hand over hand assist for direction following with all mobility. Pt is able to perform stand pivot with FWW at maxA x 1 with second person available for AD management. Poor eccentric control upon sitting. Still currently recommending SNF upon discharge. Pt is left visiting with with chair alarm and sling in chair, RN notified. Goals Bed Mobility Goal Independent Transfer Goal Minimal Assistance,Front Wheeled Walker Gait Distance 150 Days to Meet Goals 10 Frequency of Treatment Frequency Of Once a Day Treatment Treatment Plan Physical Therapy Bed Mobility Training,Transfer Training,Gait Training, Treatment Plan Therapeutic Exercise,Balance Retraining,Discharge Planning Other FWW for gait as needed for safe gait for home Recommendations and Next Treatment Focus Recommendations To Nursing Amount of Assist 2 Person Assist Needed Discharge Recommendations PT Discharge SNF Rehab Recommendations
[2025-09-08 16:00] VITALS: RESP 20
--- NOTE | 2025-09-08 16:39 | ST.IPDYTX ---
Visit Care Team Role Provider Type Rocío Roberts DO Primary Care Provider Physician Specialty: Family Practice Address: [address] [place] [address], [address], [place], [address] Email: [email or web address] Lin Bolivar PA-C Emergency Provider Advanced Operations Director Referring Provider Specialty: Emergency Medicine Address: [address] [place] [address], [facility], [place], [address] Fax: Email: Foster Lua MD Admit Provider Physician Attending Provider Specialty: Hospitalist Address: [address] [place] [address], [id number] Fax: Email: [email or web address] [place] Dysphagia Treatment [facility] [place] Dysphagia Treatment Start: 09/06/25 11:14 Freq: Status: Active Protocol: Document 09/08/25 16:26 SS (Rec: 09/08/25 16:39 SS Desktop) Dysphagia Treatment Session Time Visit Start Time 16:00 Visit Stop Time 16:25 Total Visit Minutes 25 Visit Information Visit Number 3 Setting Assessment Location Acute Care Visit Type Note Type Treatment Note Next Note Type Next Note Type Treatment Note Patient Information Identification Type Name,Date of Subjective Chart reviewed and RN consulted. Pt appeared more awake Observations /alert than past several days. Pt agreeable to participate in session. Productive cough observed at baseline prior to any intake and intermittently throughout the session. Treatment Liquids Trialed Thin (IDDSI 0) Solids Trialed Purred (IDDSI 4) Administration Type Controlled Cup Sip,Straw,Self-Feeding Pharyngeal Sitting Upright (90 deg),Small Bites and Sips Strategies Treatment Activities Reviewed MBSS results. Trials of thin liquids (water) and puree to assess for s/sx of dysphagia with current diet. The IDDSI Framework Protocol: IDDSI.1 Assessment Patient Response to Good Treatment Rehab Potential Fair Assessment of [place] provided education re: normal swallow anatomy and Improvement physiology and the results of the MBSS. Utilized a visual diagram to improve pt?s understanding. Pt expressed understanding re: results. Educated pt re: recommended safe swallow precautions to reduce the risk of aspiration, including small bites/sips, slow rate, alternating liquids and solids, upright positioning during PO intake, limiting distractions, and avoiding talking while eating. Pt verbalized understanding. Pt demonstrated adequate acceptance and containment across trials. Unable to fully assess mastication as pt declined all solids except for pudding. AP transit appeared timely. No overt s/sx of aspiration noted across trials which is consistent with MBSS results showing only penetration with consecutive large sips of thin liquids. Given overall improvement in pt mentation, recommend liquids be advanced to thin. Continue recommending 1:1 supervision with all intake given pt history of impulsivity with intake. Overall, slow but steady improvement in swallowing function. Aspiration risk remains low. However, continue to recommend supervision with intake and holding meals if pt not fully alert/awake given overall waxing and waning mentation. Continue to assess diet tolerance and advance as appropriate. Pt may be a good candidate for rehabilitative exercises to improve swallowing safety and efficiency if mentation and overall medical status continue to improve. [place] [employer] [place] kahlil continue to follow up. Recommendations Recommendations Upgrade Liquid Order Liquids Order Thin (IDDSI 0) Diet Order Soft & Bite-sized (IDDSI 6) Medication Whole in Carrier Recommendations Aspiration Precautions Recommended Upright at 90 Degrees,Small Bites/Sips Precautions Additional Monitor for impulsive intake Precautions Treatment Plan Placement Snf Facility Recommendation after Discharge Appropriate for Yes Continued Therapy Therapy Soft and bite-sized, thin liquids Recommendations 1:1 supervision Oral care TID Referrals/Other Recommended Dietary Consult Referrals
--- NOTE | 2025-09-08 18:19 | PC.NURSE ---
Pt alert/ confused at times. Pt resting at intervals T/O day. Sat in chair for 2 hrs w/o incidence CiWa 5 Condition remains essentially unchanged. Call light w/in reach, bed alarm on for pt safety. Continune w/plan of care.
[2025-09-08 20:35] VITALS: O2SAT 97
[2025-09-08 21:33] VITALS: BP 112/72; PULSE 79; RESP 18; TEMP 36.4; O2SAT 91
[2025-09-08 21:35] VITALS: BP 112/72
[2025-09-08] MEDS: CLOTRIMAZOLE 1% CRM 30 GM 1 APPLIC TOP (21:48)
[2025-09-09 04:57] VITALS: BP 108/66; PULSE 71; RESP 18; TEMP 36.6; O2SAT 93
[2025-09-09] MEDS: GENTAMICIN 0.3% OPHTH 5 ML 1 DROPS EYE-BOTH ×3 (06:53→15:01)
[2025-09-09 08:50] VITALS: BP 106/71; PULSE 74; RESP 14; TEMP 36.4; O2SAT 92
[2025-09-09] MEDS: THIAMINE 100 MG in SODIUM CHLORIDE 0.9% 100 ML 404 MG IV (09:32)
[2025-09-09] MEDS: LACTULOSE 20 GM/30 ML SOLUTION PO ×3 (09:36→20:35)
[2025-09-09] MEDS: MULTIVITAMIN 1 TABLET 1 TAB PO (09:36)
[2025-09-09] MEDS: ENOXAPARIN 40 MG/0.4 ML SYRINGE SUBCUT (09:36)
[2025-09-09] MEDS: CLOTRIMAZOLE 1% CRM 30 GM 1 APPLIC TOP (09:37)
[2025-09-09] MEDS: NICOTINE 14 PATCH 14 MG TOP (09:37)
[2025-09-09] MEDS: FOLIC ACID 1 MG TABLET PO (09:37)
--- NOTE | 2025-09-09 10:27 | DIET.PN1 ---
Dietary Progress Note Assessment: Spoke to RN who reports pt doing 75% of breakfast this morning, DFM reviewed for meal adequacy. Reports pt just needs to be offered food and encouraged to eat. Pt with improved PO intakes. Ensure continues 1-2x/day to help with increased energy-protein needs. Ht: 165.1 cm Wt: 70 kg BMI: 25.7 UBW: Last BM: 09/07/25 (09/07/25 11:30) MNA: 10 Junior Score: 16 Diet: 09/05/25 12:55 NPO Diet Diet Modifications: NPO Type: NPO Free Water Protocol 09/09/25 Breakfast Dysphagia Diet Diet Modifications: Supervsion with intake, oral care TID Food Texture: Level 6-Soft & Bite-sized Liquid Consistency: Level 0 - Thin Nutrition Percent Meal Consumed 100% 09/07/25 18:00 Labs: RBC 2.62 X10^6/uL (4.5-5.9) L 09/02/25 11:47 Hgb 9.6 g/dL (13.5-17.5) L 09/02/25 11:47 Hct 27.8 % (41-53) L 09/02/25 11:47 Creatinine 0.50 mg/dL (0.66-1.25) L 09/04/25 10:28 Lactate 2.2 mmol/L (0.7-2.1) H 08/31/25 15:33 Electronically Signed by: Anitra Hardin 09/09/25 10:27 Clinical Dietitian [address] [address]
--- NOTE | 2025-09-09 11:39 | PT.IPTN ---
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 coma (08/31/25) Physical Therapy Treatment Note M2 PT-IP Current Condition Start: 09/03/25 12:04 Freq: NEEDED Status: Active Protocol: Document 09/03/25 12:05 SAK (Rec: 09/03/25 12:16 SAK [id number]) Physical Therapy Current Condition Current Condition Evaluation Date 09/03/25 Treatment Diagnosis weakness Onset Date 08/31/25 M3 PT-IP Subjective Start: 09/03/25 12:04 Freq: NEEDED Status: Active Protocol: Document 09/09/25 12:48 NW (Rec: 09/09/25 12:55 NW [id number]) Subjective Physical Therapy Visit Type Type Treatment Note Visit Start Time 11:04 Visit Stop Time 11:39 Physical Therapy Visit Comments Patient Comments Pt is found resting in bed side chair and states he needs to use the restroom. Patient Goals To go home. M4 PT-IP Mobility and Gait Start: 09/03/25 12:04 Freq: NEEDED Status: Active Protocol: Document 09/09/25 12:48 NW (Rec: 09/09/25 12:55 NW [id number]) PT-Transfer Assessment Sit to and From Stand Sit to and from Moderate Assistance,1 Person Assistance Stand Equipment Transfer Assistive Gait Belt,Front Wheeled Walker Device Transfers Transfer Destination Chair,Bedside Commode Transfer Technique Stand Pivot Transfer Ability Level of Assist Moderate Assistance,1 Person Assistance Comments Mobility Comments Step by step cues utilized with hand over hand assist with AD with second person. Improved power production with no carry over for UE placement with AD. Gait Assessment Comments Gait Comments Pt is unable to ambulate at this time. PT-Balance Assessment Sitting Balance and Reactions Static Sitting Good Balance Ability Dynamic Sitting Fair Balance Ability Standing Balance and Reactions Static Standing Poor Balance Ability Dynamic Standing Poor Balance Ability Device Used FWW, gait belt Comments Other Balance Tests/ Posterior lean upon stance, able to cue to shift weight Deviations/Treatment anterior. Able to maintain stance for 38 seconds : consistently at min/modA M5 PT-IP Objective Assessments Start: 09/03/25 12:04 Freq: NEEDED Status: Active Protocol: Document 09/07/25 11:28 DCW (Rec: 09/07/25 12:14 DCW [id number]) Orientation Orientation/Cognition Level of Alertness [place] Safety Awareness Decreased Safety Awareness M6 PT-IP Treatment Start: 09/03/25 12:04 Freq: NEEDED Status: Active Protocol: Document 09/09/25 12:48 NW (Rec: 09/09/25 12:55 NW [id number]) Physical Therapy Treatment Other Treatments Other Treatment STS from bed side chair and bed side commode x 6 Performed throughout session with FWW at modA x 1 with second Stand pivot bed side chair <> commode with FWW at modA x1 with second person assist for AD management. Step by step cues given. Standing tolerance x 3 for > 40 seconds. Standing with FWW and weight shift to lift alternating toes/foot at maxA 2 x 6 M7 PT-IP Assessment and Plan Start: 09/03/25 12:04 Freq: NEEDED Status: Active Protocol: Document 09/09/25 12:48 NW (Rec: 09/09/25 12:55 NW [id number]) PT Summary Assessment and Plan Potential Rehabilitation Fair Potential Summary Impairments Strength,Balance,Cognition,Bed Mobility,Transfers,Gait, Activity Tolerance Progress Towards Slow Progress - Other Goals Assessment Summary Alvin has improved activity tolerance as he is able to complete 6 STS with FWW at varying degree of assist typically modA. Progressed to weight shifting to small march with heavy assistance with FWW. Able to perform stand pivot at modA x1 with second assist for AD management from bed side chair to commode. Pt is left seated in bed side chair with chair alarm on. Continue to recommend SNF. Goals Bed Mobility Goal Independent Transfer Goal Minimal Assistance,Front Wheeled Walker Gait Distance 150 Days to Meet Goals 10 Frequency of Treatment Frequency Of Once a Day Treatment Treatment Plan Physical Therapy Bed Mobility Training,Transfer Training,Gait Training, Treatment Plan Therapeutic Exercise,Balance Retraining,Discharge Planning Other FWW for gait as needed for safe gait for home Recommendations and Next Treatment Focus Precautions Other Precautions falls risk Recommendations To Nursing Amount of Assist 2 Person Assist Needed Discharge Recommendations PT Discharge SNF Rehab Recommendations
--- NOTE | 2025-09-09 11:58 | PC.NURSE ---
Addendum entered by Britt Haji RN 09/09/25 19:20: Lasix ordered, Placed a male purwick to night. Penal area presents MD jennie aware. Call light w/in reach, bed alarm on for pt safety. Continue w/plan of care Addendum entered by Britt Haji RN 09/09/25 17:49: Recieved lasix for edema in lower legs and feet. Condition remains essentially unchanged Call light w/in reach, bed alarm on for pt safety. Continue w/plan of care Original Note: Pt talkative today, denies any discomfort. CiWa 2 Assisted by PT & staff to chair. Condition remains essentially unchanged. Call light w/in reach, bed/chair alarm on for pt safety Continue w/plan of care.
--- NOTE | 2025-09-09 12:15 | CM.DPC ---
DCP Cont. Reviewed EMR and team rounds for pt's medical status and updates. Reived call from [facility], they are declining acceptance due to insurance reimbursement's low rate. Waiting to hear from several other referrals. We will likely need to d/c home next week with hospice and paid caregivers if we don't get an accepting facility.
--- NOTE | 2025-09-09 13:16 | OT.IPNOTE ---
Patient not agreeable to outpatient OT treatment at this time; appeared to be sleeping/resting upright in chair. Inquired whether or not he would like to get back into bed given that he appeared to be sleeping in the chair. When asked, he agreed that he was more comfortable upright in the chair at this time. Chair/fall alarm was still in place; bed side table was positioned next to chair.
--- NOTE | 2025-09-09 14:10 | P.PN_ITS ---
Subjective Subjective Date Patient Seen: 09/09/25 Interval history: 09/01: Patient is less somnolent today but does not make meaningful verbal responses bilirubin has dropped to 7.8 from 10 pneumonia has dropped from 72-62 potassium was 2.9 09/02: Today patient is less somnolent but still quite confused and somnolent patient appears to have dysphagia bilirubin has de-escalated to 6.5 potassium 3.1 09/03: More alert with improved labs. Weaned phenobarbital. Bili 6.5, NH3 42. 09/05: More alert and most recent Bilirubin is 7.0. AST 97, alk phos 239. Patient and his mother who is POA agreed that other family members could be briefed. Daughter is nurse and granddaughter is a physician. Discussed with his son today. Appropriate for hospice and will need care home care. Tinea pedis rash to be treated. Minimal swallowing noted by speech therapy. Self feeding very limited noted on OT eval. 09/06: Much more alert and verbally argumentative today. He is demanding to go home but is not capable of understanding his physical limitations. Discussed with son who is present. He is not dropping the food down his shirt today but is still unable to swallow so a modified barium swallow will be done. Ammonia level yesterday was less than 9. 09/07: Wax and waning mental status, not oriented to place or year. Required some Ativan for impulsive behavior. 09/08: He was more alert and interactive. He is oriented to hospital and year today. 09/09: Discharge has been delayed due to his insurance and facility reluctance to accept him due to the psychosocial conditions. He has been able to stand up in the room and walk a little bit with physical therapy. He complains of not being fed on his preferred scheduled. He appears very sleepy. His last labs from 09/04 are reviewed. NAD, alert and oriented to person. Speech halting and slurred. Eyes are open. Lungs are clear, normal rate and effort. Heart is regular, no murmur gallop or rub. Abdomen is soft, very distended. Extremities 2+ bilateral pitting edema Jaundice-quite otero appearing. Flaking rash on both feet improving. A/P: 1. Acute alcohol withdrawal, resolved. 2. Liver failure, active. 3. Alcohol use disorder, active. 4. Dysphagia 5. Hepatic Encephalopathy, improving. 6. Tinea Pedis 7. Conjunctivitis 8. He was severe weakness and debilitation, is a 2 person assist to stand and transfer. 9. Severe Protein Calorie Malnutrition PLAN: -he has been declined by numerous care home facilities. -He is 65 years old and does not have Medicare so his primary insurance is Medicaid which is problematic for care home -He is not stable enough to be discharged home. -there is no family support plan for discharge home. -he is hospice appropriate but is reluctant and over confident that he can recover. DISPO: TBD Exam Vital Signs (past 8 hours): - 09/09/25 08:50 Temperature 97.6 F Pulse Rate 74 Respiratory Rate 14 Blood Pressure 106/71 Pulse Oximetry 92 Oxygen Flow Rate 0 Fraction of Inspired Oxygen 2 SaO2/FiO2 Ratio 332 Oxygen Delivery Method Room Air Oxygen Flow Rate 0 Objective Labs 09/02/25 11:47 09/04/25 10:28 [facility] Medical History Tobacco dependence Alcohol use disorder, moderate, dependence Fentanyl use disorder, mild, abuse Seizures Amputation finger Onychomycosis Chronic pancreatitis Alcoholic pancreatitis Fracture of finger, distal phalanx, open Fracture of finger, middle phalanx, open Alcohol abuse Back pain Surgical History History of surgical amputation of finger Family History Mother Osteoarthritis Father Alcohol abuse Medical history unknown Social History household members: none Smoking Status: Current every day smoker alcohol intake: current substance use type: marijuana Assessment & Plan Time-Based Coding :: [TOTAL MINUTES] spent with patient and on the chart (including review of chart, obtaining history, exam, reviewing outside data, placing orders, documenting exam and treatment plan, and counseling patient) on [DATE]. Quality VTE Deep Vein Thrombosis/Pulmonary Embolism Present on Admission: No
--- NOTE | 2025-09-09 15:08 | SLP.IPNOTE ---
HEALTH SOCIAL WORK PROFESSOR attempted to see patient, however patient being seen by PT. HEALTH SOCIAL WORK PROFESSOR plan to discharge patient from [facility] at this time d/t Pt having had a MBS done, provided review and education on MBS results including safe swallowing strategies and on safest and most efficient least restrictive diet at this time. HEALTH SOCIAL WORK PROFESSOR recommends another referral be placed if any changes occur.
[2025-09-09 16:00] VITALS: BP 109/78; PULSE 90; RESP 16; TEMP 36.4; O2SAT 92
[2025-09-09] MEDS: FUROSEMIDE 40 MG TABLET PO (17:36)
[2025-09-09 20:00] VITALS: BP 117/72; PULSE 74; RESP 18; TEMP 36.4; O2SAT 96
--- NOTE | 2025-09-09 21:21 | DI.RAD.S_ITS ---
PROCEDURE: XR CHEST 1V INDICATIONS: aspiration TECHNIQUE: One view of the chest was acquired. COMPARISON: [facility], CR, XR CHEST 1V, 09/02/2025, 16:34. [facility], CR, XR CHEST 1V, 08/31/2025, 11:44. FINDINGS: Surgical changes and devices: None. Lungs and pleura: Streaky perihilar opacities. Mediastinum: Mediastinal contours appear normal. Heart size is normal. Bones and chest wall: No suspicious bony lesions. Overlying soft tissues appear unremarkable. IMPRESSION: Streaky perihilar opacities, could represent aspiration or atelectasis. Dictated by: Morales Murillo M.D. on 09/09/2025 at 21:59 Approved by: Morales Murillo M.D. on 09/09/2025 at 22:00
--- NOTE | 2025-09-09 23:07 | PC.NURSE ---
2034: During administration of lactulose, patient started coughing and aspirating. Patient was sitting upright and following SLT assessment. Patient was suctioned immediately and able to give big coughs to help clear airway. Lowest O2 saturation was high 80s and placed on 2L NC. Hospitalist Dr. Martin notified immediately and Cxray was ordered and completed. Diet order changed to NPO. RT made aware.
[2025-09-10] MEDS: LIDOCAINE 2% (GLYDO) 6 ML GEL TOP (03:07)
[2025-09-10 04:00] VITALS: BP 143/85; PULSE 76; RESP 19; TEMP 36.4; O2SAT 98
[2025-09-10 05:05] VITALS: PULSE 77; RESP 18
[2025-09-10 06:14] LABS: Blood Urea Nitrogen 4 mg/dL (9-20); Calcium 7.4 mg/dL (8.4-10.2); Carbon Dioxide 26 mmol/L (22-32); Chloride 103 mmol/L (98-107); Estimated Glomerular Filt Rate > 60 mL/min (>60); Glucose 120 mg/dL (70-99); HEMOLYSIS < 15 (0-50); Potassium 2.9 mmol/L (3.4-5.1); Sodium 135 mmol/L (137-145)
[2025-09-10 08:30] VITALS: BP 136/85; PULSE 71; RESP 15; TEMP 36.4; O2SAT 95
[2025-09-10] MEDS: POTASSIUM CHLORIDE IN WATER 10 MEQ/100 ML PIGGYBACK 100 MEQ IV ×6 (09:25→16:18)
[2025-09-10] MEDS: THIAMINE 100 MG in SODIUM CHLORIDE 0.9% 100 ML 404 MG IV (10:40)
--- NOTE | 2025-09-10 10:59 | PC.NURSE ---
Pt became very agitated, wanting to get out of bed. Assisted pt in repositioning. Med w/ ativan as per orders for anxiety. Resting calmly shortly after. Receiving K[facility] riders t/o day. Call light w/in reach, bed alarm on for pt safety.
--- NOTE | 2025-09-10 11:04 | CM.DPC ---
DCP SNF Cont: SW followed up on the previously faxed [facility]Fs: [facility] not contracted [facility]- not contracted [facility]- have referral but need answer from their clinical team on Friday [place]- left another msg SW followed up on the previously faxed [place] [facility]: [facility]- not contracted [place] - msg [facility]- msg [facility] [place]- msg [facility] [place] [facility] [place]- msg [facility]- msg *sent these additional SNF referrals today: [facility]- faxed [facility]- faxed [facility]- faxed [facility]- faxed Per MD and RN, pt continues to be 2PA with mobility and remains forgetful (SLUMS a couple days ago was 09/27). If above SNFs review and cannot accept then further discussion with ANDRES Morales regarding private pay SNF or Respite vs private pay and Hospice. Pt's end stage liver failure meets Hospice critieria and Hospice [facility] Info Visit started with ANDRES Morales last week but decision made to pursue SNF at that time. Kesha Russell MSW
--- NOTE | 2025-09-10 13:10 | P.PN_ITS ---
Subjective Subjective Date Patient Seen: 09/10/25 Interval history: 09/01: Patient is less somnolent today but does not make meaningful verbal responses bilirubin has dropped to 7.8 from 10 pneumonia has dropped from 72-62 potassium was 2.9 09/02: Today patient is less somnolent but still quite confused and somnolent patient appears to have dysphagia bilirubin has de-escalated to 6.5 potassium 3.1 09/03: More alert with improved labs. Weaned phenobarbital. Bili 6.5, NH3 42. 09/05: More alert and most recent Bilirubin is 7.0. AST 97, alk phos 239. Patient and his mother who is POA agreed that other family members could be briefed. Daughter is nurse and granddaughter is a physician. Discussed with his son today. Appropriate for hospice and will need detention care. Tinea pedis rash to be treated. Minimal swallowing noted by speech therapy. Self feeding very limited noted on OT eval. 09/06: Much more alert and verbally argumentative today. He is demanding to go home but is not capable of understanding his physical limitations. Discussed with son who is present. He is not dropping the food down his shirt today but is still unable to swallow so a modified barium swallow will be done. Ammonia level yesterday was less than 9. 09/07: Wax and waning mental status, not oriented to place or year. Required some Ativan for impulsive behavior. 09/08: He was more alert and interactive. He is oriented to hospital and year today. 09/09: Discharge has been delayed due to his insurance and facility reluctance to accept him due to the psychosocial conditions. He has been able to stand up in the room and walk a little bit with physical therapy. He complains of not being fed on his preferred scheduled. He appears very sleepy. His last labs from 09/04 are reviewed. 09/10: Overnight he reportedly appear to aspirate on lactulose so has been NPO today. We will ask speech therapy to see him again. Began on Lasix yesterday and appears less edematous today. Remains confused and jaundiced. Pizarro catheter has very bilious appearing urine. Potassium 2.9 today, after starting Lasix yesterday, so is receiving supplementation. Discharge has been delayed due to his insurance and facility reluctance to accept him due to the psychosocial conditions. NAD, alert and oriented to person. Speech halting and slurred. Eyes are open. Lungs are clear, normal rate and effort. Heart is regular, no murmur gallop or rub. Abdomen is soft, less distended. Extremities 1+ bilateral pitting edema Jaundice-quite otero appearing. Flaking rash on both feet improving. A/P: 1. Acute alcohol withdrawal, resolved. 2. Liver failure anasarca, active. 3. Alcohol use disorder, active. 4. Dysphagia 5. Hepatic Encephalopathy, improving. 6. Tinea Pedis 7. Conjunctivitis 8. He has severe weakness and debilitation, is a 2 person assist to stand and transfer. 9. Severe Protein Calorie Malnutrition 10. Hypokalemia PLAN: -he has been declined by numerous detention facilities. -He is 65 years old and does not have Medicare so his primary insurance is Medicaid which is problematic for detention -He is not stable enough to be discharged home. -there is no family support plan for discharge home. -he is hospice appropriate but is reluctant and over confident that he can recover. -potassium supplementation -currently NPO, anticipate speech therapy re-consultation in the next 12 hours. DISPO: TBD Exam Vital Signs (past 8 hours): - 09/10/25 08:30 Temperature 97.5 F L Pulse Rate 71 Respiratory Rate 15 Blood Pressure 136/85 Pulse Oximetry 95 Oxygen Flow Rate 0 Fraction of Inspired Oxygen 2 SaO2/FiO2 Ratio 332 Oxygen Delivery Method Nasal Cannula Oxygen Flow Rate 0 Objective Labs 09/02/25 11:47 09/10/25 05:40 Labs: Laboratory Results - last 24 hr 09/10/25 05:40 Sodium 135 L Potassium 2.9 L Chloride 103 Carbon Dioxide 26 BUN 4 L Creatinine 0.46 L Estimated GFR > 60 BUN/Creatinine Ratio 8.7 Glucose 120 H Calcium 7.4 L [facility] Medical History Tobacco dependence Alcohol use disorder, moderate, dependence Fentanyl use disorder, mild, abuse Seizures Amputation finger Onychomycosis Chronic pancreatitis Alcoholic pancreatitis Fracture of finger, distal phalanx, open Fracture of finger, middle phalanx, open Alcohol abuse Back pain Surgical History History of surgical amputation of finger Family History Mother Osteoarthritis Father Alcohol abuse Medical history unknown Social History household members: none Smoking Status: Current every day smoker alcohol intake: current substance use type: marijuana Assessment & Plan Time-Based Coding :: [TOTAL MINUTES] spent with patient and on the chart (including review of chart, obtaining history, exam, reviewing outside data, placing orders, documenting exam and treatment plan, and counseling patient) on [DATE]. Quality VTE Deep Vein Thrombosis/Pulmonary Embolism Present on Admission: No
[2025-09-10] MEDS: GENTAMICIN 0.3% OPHTH 5 ML 1 DROPS EYE-BOTH (16:41)
--- NOTE | 2025-09-10 16:59 | ST.IPDYTX ---
Visit Care Team Role Provider Type Rocío Roberts DO Primary Care Provider Physician Specialty: Family Practice Address: [address] [place] [address], [address], [place], [address] Email: [email or web address] Lin Bolivar PA-C Emergency Provider Advanced Bottom Polisher Referring Provider Specialty: Emergency Medicine Address: [address] [place] [address], [facility] [address], [place], [address] Fax: Email: Foster Lua MD Admit Provider Physician Attending Provider Specialty: Hospitalist Address: [address] [place] [address], [id number] Fax: Email: [email or web address] SKI TECHNICIAN Dysphagia Treatment SKI TECHNICIAN Dysphagia Treatment Start: 09/06/25 11:14 Freq: Status: Active Protocol: Document 09/10/25 16:31 SS (Rec: 09/10/25 16:59 SS [id number]) Dysphagia Treatment Session Time Visit Start Time 15:55 Visit Stop Time 16:30 Total Visit Minutes 35 Visit Information Visit Number 4 Setting Assessment Location Acute Care Visit Type Note Type Treatment Note Next Note Type Next Note Type Treatment Note Patient Information Identification Type Name,Date of Subjective Chart reviewed and RN consulted. Per recent RN note on Observations 09/09: During administration of lactulose, patient started coughing and aspirating. Patient was sitting upright and following SLT assessment. Patient was suctioned immediately and able to give big coughs to help clear airway. Lowest O2 saturation was high 80s and placed on 2L NC. Hospitalist Dr. Martin notified immediately and xray was ordered and completed. Diet order changed to NPO. RT made aware. Chest xray on 09/02 showed suspected retrocardiac atelectasis or consolidation. Repeat chest xray on showed streaky perihilar opacities, could represent aspiration or atelectasis. Per daytime RN, pt had been previously tolerating diet, though has been more agitated past few days. Pt appeared less awake/alert than past several days upon SKI TECHNICIAN entry. He had just received Ativan due to agitation /combative behavior. Again, productive cough observed at baseline prior to any intake and intermittently throughout the session. Pt sitting on edge of the bed, declining to sit with head of bed behind him for support. Pt highly agitated throughout session, though able to redirect when offered snack. Treatment Liquids Trialed Ice chips,Thin (IDDSI 0) Solids Trialed Purred (IDDSI 4) Administration Type Controlled Cup Sip,Dependent Feeding Pharyngeal Sitting Upright (90 deg),Small Bites and Sips Strategies Treatment Activities Trials of ice chips, thin liquids (water), and puree to assess for s/sx of dysphagia with current diet. SKI TECHNICIAN offered soft and bite sized texture (peaches), though pt declined. The IDDSI Framework Protocol: IDDSI.1 Assessment Patient Response to Good Treatment Rehab Potential Fair Assessment of Pt demonstrated adequate acceptance across trials. Oral Improvement containment was variable with occasional anterior loss noted with thin liquids. Unable to fully assess mastication as pt declined all solids except for puree texture. AP transit appeared slow, but functional. No overt s/sx of aspiration noted across trials of ice chips, controlled cup sips of thin liquids, and puree. As pt was finishing trials of puree, he began leaning backwards with bolus still in oral cavity, immediately coughing. RN and SKI TECHNICIAN assisted pt in remaining upright in edge of bed. He was able to produce a strong cough and expectorate bolus. Given MBSS results on 09/08, which showed only penetration with consecutive large sips of thin liquids, suspect increased laryngeal penetration when pt not sitting upright or fully awake/ alert. Given waxing and waning mentation, recommend diet be advanced to thin liquids and soft and bite-sized diet as recommended by MBSS with strict aspiration precautions as below. *1:1 supervision with all intake given pt impulsivity with intake. *No straws to control rate of intake and bolus size *Fully upright for all intake *Hold PO intake (meals, medications, etc) if pt not fully awake and alert *Encourage pt to take small single sips and bites and use slow rate *Oral care TID Based on pt?s current poor oral health status and compromised immune function, pt remains at a moderate risk of pulmonary compromise associated with aspiration at this time. While aspiration risk is overall low, it increases when pt?s is not fully awake/alert. Strongly recommend all intake be held when pt not fully awake and alert. Pt continues to be at risk for malnutrition/dehydration due to decreased appetite; recommend continuation of dietary services. SKI TECHNICIAN will follow up to determine ongoing diet recommendations and potential need for repeat MBSS if no improvement in clinical symptoms with strict aspiration precautions in place as above. Recommendations Recommendations Upgrade Liquid Order Liquids Order Thin (IDDSI 0) Diet Order Soft & Bite-sized (IDDSI 6) Medication Whole in Carrier Recommendations Aspiration Precautions Recommended Upright at 90 Degrees,Small Bites/Sips Precautions Additional Monitor for impulsive intake Precautions Treatment Plan Placement [facility] Facility,Home with Hospice,Palliative Recommendation after Care Discharge Appropriate for Yes Continued Therapy Therapy Continue to follow up to monitor diet tolerance with Recommendations strict aspiration precautions in place Referrals/Other Recommended Dietary Consult Referrals
--- NOTE | 2025-09-10 17:02 | SLP.IPNOTE ---
Given waxing and waning mentation, recommend diet be advanced to thin liquids and soft and bite-sized diet with strict aspiration precautions as below: *1:1 supervision with all intake given pt impulsivity with intake. *No straws to control rate of intake and bolus size *Fully upright for all intake *Hold PO intake (meals, medications, etc) if pt not fully awake and alert *Encourage pt to take small single sips and bites and use slow rate *Oral care TID
[2025-09-10 17:19] VITALS: BP 142/88; PULSE 91; RESP 16; TEMP 36.3; O2SAT 98
[2025-09-10 19:04] LABS: HEMOLYSIS < 15 (0-50); Potassium 3.7 mmol/L (3.4-5.1)
[2025-09-10 20:00] VITALS: BP 128/83; PULSE 82; RESP 20; TEMP 36.4; O2SAT 94
[2025-09-10 23:31] VITALS: O2SAT 94
[2025-09-11 06:56] LABS: Add Manual Diff / Slide Review NO; Hematocrit 30.1 % (41-53); Hemoglobin 10.4 g/dL (13.5-17.5); Lymphocytes Absolute Auto 1800 /uL (1100-4500); Mean Corpuscular HGB Conc 34.4 % (30-36); Mean Corpuscular Hemoglobin 38.1 PG (26-34); Mean Corpuscular Volume 110.5 fL (80-100); Platelet Count 109 X10^3/uL (150-400)
[2025-09-11 07:03] LABS: Alanine Aminotransferase 26 IU/L (<50); Albumin 2.6 g/dL (3.5-5.0); Albumin Globulin Ratio 0.7 (1.0-2.8); Alkaline Phosphatase 237 U/L (38-126); Blood Urea Nitrogen 3 mg/dL (9-20); Calcium 7.4 mg/dL (8.4-10.2); Carbon Dioxide 26 mmol/L (22-32); Chloride 101 mmol/L (98-107); Estimated Glomerular Filt Rate > 60 mL/min (>60); Globulin 3.9 g/dL (1.7-4.1); Glucose 103 mg/dL (70-99); HEMOLYSIS < 15 (0-50); Potassium 3.2 mmol/L (3.4-5.1); Sodium 133 mmol/L (137-145); Total Protein 6.5 g/dL (6.3-8.2)
[2025-09-11 07:28] LABS: Anisocytosis 1+; Macrocytosis 1+; Target Cells 1+
[2025-09-11] MEDS: THIAMINE 100 MG in SODIUM CHLORIDE 0.9% 100 ML 404 MG IV (09:57)
[2025-09-11] MEDS: LACTULOSE 20 GM/30 ML SOLUTION PO ×2 (10:10→20:28)
[2025-09-11] MEDS: CLOTRIMAZOLE 1% CRM 30 GM 1 APPLIC TOP ×2 (10:30→20:22)
[2025-09-11] MEDS: GENTAMICIN 0.3% OPHTH 5 ML 1 DROPS EYE-BOTH ×2 (10:31→20:22)
[2025-09-11] MEDS: ENOXAPARIN 40 MG/0.4 ML SYRINGE SUBCUT (10:33)
[2025-09-11] MEDS: NICOTINE 14 PATCH 14 MG TOP (10:34)
[2025-09-11] MEDS: POTASSIUM CHLORIDE IN WATER 10 MEQ/100 ML PIGGYBACK 100 MEQ IV ×4 (10:35→13:15)
[2025-09-11] MEDS: FUROSEMIDE 40 MG TABLET PO (10:42)
--- NOTE | 2025-09-11 11:04 | PM.PN.1 ---
Subjective Subjective Date Patient Seen: 09/11/25 Interval history: 09/01: Patient is less somnolent today but does not make meaningful verbal responses bilirubin has dropped to 7.8 from 10 pneumonia has dropped from 72-62 potassium was 2.9 09/02: Today patient is less somnolent but still quite confused and somnolent patient appears to have dysphagia bilirubin has de-escalated to 6.5 potassium 3.1 09/03: More alert with improved labs. Weaned phenobarbital. Bili 6.5, NH3 42. 09/05: More alert and most recent Bilirubin is 7.0. AST 97, alk phos 239. Patient and his mother who is POA agreed that other family members could be briefed. Daughter is nurse and granddaughter is a physician. Discussed with his son today. Appropriate for hospice and [place] need [place] [facility]. Tinea pedis rash to be treated. Minimal swallowing noted by speech therapy. Self feeding very limited noted on OT eval. 09/06: Much more alert and verbally argumentative today. He is demanding to go home but is not capable of understanding his physical limitations. Discussed with son who is present. He is not dropping the food down his shirt today but is still unable to swallow so a modified barium swallow will be done. Ammonia level yesterday was less than 9. 09/07: Wax and waning mental status, not oriented to place or year. Required some Ativan for impulsive behavior. 09/08: He was more alert and interactive. He is oriented to hospital and year today. 09/09: Discharge has been delayed due to his insurance and facility reluctance to accept him due to the psychosocial conditions. He has been able to stand up in the room and walk a little bit with physical therapy. He complains of not being fed on his preferred scheduled. He appears very sleepy. His last labs from 09/04 are reviewed. 09/10: Overnight he reportedly appear to aspirate on lactulose so has been NPO today. We will ask speech therapy to see him again. Began on Lasix yesterday and appears less edematous today. Remains confused and jaundiced. Pizarro catheter has very bilious appearing urine. Potassium 2.9 today, after starting Lasix yesterday, so is receiving supplementation. Discharge has been delayed due to his insurance and facility reluctance to accept him due to the psychosocial conditions. 09/11: White blood count 9.3, hemoglobin 10.4, platelets 109. Sodium 133 potassium 3.2. He will receive additional 40 mEq of IV potassium today. Total bilirubin 6.0. AST 74. He is sleeping/sedated from his Librium during my visit. He continues on dysphagia diet per speech therapy re-evaluation yesterday. The caution was to not give him anything to eat or drink if he is sedated. Hopefully stopping the Librium will help that. NAD, alert and oriented to person. Speech halting and slurred. Eyes are open. Lungs are clear, normal rate and effort. Heart is regular, no murmur gallop or rub. Abdomen is soft, less distended. Extremities 1+ bilateral pitting edema Jaundice-quite otero appearing. Flaking rash on both feet improving. A/P: 1. Acute alcohol withdrawal, resolved. 2. Liver failure anasarca, active. 3. Alcohol use disorder, active. 4. Dysphagia 5. Hepatic Encephalopathy, improving. 6. Tinea Pedis 7. Conjunctivitis 8. He has severe weakness and debilitation, is a 2 person assist to stand and transfer. 9. Severe Protein Calorie Malnutrition 10. Hypokalemia PLAN: -he has been declined by numerous [place] [facility] facilities. -He is 65 years old and does not have Medicare so his primary insurance is Medicaid which limits SNF options. -He is not stable enough to be discharged home. -there is no family support plan for discharge home. -he is hospice appropriate but is reluctant and over confident that he can recover. -potassium supplementation -continue dysphagia diet, per speech therapy re-evaluation on 09/10. -stop routine Librium DISPO: TBD Exam Vital Signs (past 8 hours): Fraction of Inspired Oxygen 28 SaO2/FiO2 Ratio 335 Oxygen Delivery Method Nasal Cannula Oxygen Flow Rate 2 Objective Labs 09/11/25 06:05 09/11/25 06:05 Labs: Laboratory Results - last 24 hr 09/10/25 09/11/25 17:15 06:05 WBC 9.3 RBC 2.72 L Hgb 10.4 L Hct 30.1 L MCV 110.5 H D MCH 38.1 H MCHC 34.4 RDW 15.8 H Plt Count 109 L Neut % (Auto) 68.8 Lymph % (Auto) 19.6 L Tyler % (Auto) 9.8 Eos % (Auto) 0.4 L Baso % (Auto) 1.4 Neut # (Auto) 6400 Lymph # (Auto) 1800 Tyler # (Auto) 900 Eos # (Auto) 0 Baso # (Auto) 100 Platelet Estimate Decreased on smear RBC Morphology See below Anisocytosis 1+ H Macrocytosis 1+ H Target Cells 1+ H Sodium 133 L Potassium 3.7 3.2 L Chloride 101 Carbon Dioxide 26 BUN 3 L Creatinine 0.43 L Estimated GFR > 60 BUN/Creatinine Ratio 7.0 Glucose 103 H Calcium 7.4 L Total Bilirubin 6.0 H AST 74 H ALT 26 Alkaline Phosphatase 237 H Total Protein 6.5 Albumin 2.6 L Globulin 3.9 Albumin/Globulin Ratio 0.7 L PFSH Medical History Tobacco dependence Alcohol use disorder, moderate, dependence Fentanyl use disorder, mild, abuse Seizures Amputation finger Onychomycosis Chronic pancreatitis Alcoholic pancreatitis Fracture of finger, distal phalanx, open Fracture of finger, middle phalanx, open Alcohol abuse Back pain Surgical History History of surgical amputation of finger Family History Mother Osteoarthritis Father Alcohol abuse Medical history unknown Social History household members: none Smoking Status: Current every day smoker alcohol intake: current substance use type: marijuana Assessment & Plan Time-Based Coding :: [TOTAL MINUTES] spent with patient and on the chart (including review of chart, obtaining history, exam, reviewing outside data, placing orders, documenting exam and treatment plan, and counseling patient) on [DATE]. Quality VTE Deep Vein Thrombosis/Pulmonary Embolism Present on Admission: No
[2025-09-11 13:00] VITALS: BP 118/79; PULSE 102; RESP 18; TEMP 36.3; O2SAT 94
--- NOTE | 2025-09-11 16:08 | PT.IPTN ---
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 coma (08/31/25) Physical Therapy Treatment Note M2 PT-IP Current Condition Start: 09/03/25 12:04 Freq: NEEDED Status: Active Protocol: Document 09/03/25 12:05 SAK (Rec: 09/03/25 12:16 SAK [id number]) Physical Therapy Current Condition Current Condition Evaluation Date 09/03/25 Treatment Diagnosis weakness Onset Date 08/31/25 M3 PT-IP Subjective Start: 09/03/25 12:04 Freq: NEEDED Status: Active Protocol: Document 09/11/25 16:29 NW (Rec: 09/11/25 16:37 NW [id number]) Subjective Physical Therapy Visit Type Type Treatment Note Visit Start Time 15:38 Visit Stop Time 16:08 Physical Therapy Visit Comments Patient Comments Pt states he is hungry and fatigued from lack of food. Is only orientated to self and month. Patient Goals Go home. M4 PT-IP Mobility and Gait Start: 09/03/25 12:04 Freq: NEEDED Status: Active Protocol: Document 09/11/25 16:29 NW (Rec: 09/11/25 16:37 NW [id number]) PT-Bed Mobility Assessment Rolling Type of Rolling Roll to Right Level of Assist Contact Guard Assistance Supine to Sit Supine to Sit Minimal Assistance,Head of Bed Elevated,Bedrails Sit to Supine Sit to Supine Minimal Assistance PT-Transfer Assessment Sit to and From Stand Sit to and from Minimal Assistance,1 Person Assistance Stand Equipment Transfer Assistive Gait Belt,Standard Walker Device Comments Mobility Comments Requires heavy posterior support with use of edge of bed. Cues necessary to assist pt to stand tall. Pt is able to perform side stepping to R with maxA with FWW. Unable to follow cues for weight shift or LE placement, manual facilitation performed with cues to step on PTs foot. Performed 3 rounds of STS with side stepping to achieve 2-3 ft of distances. PT-Balance Assessment Sitting Balance and Reactions Static Sitting Good Balance Ability Dynamic Sitting Fair Balance Ability Standing Balance and Reactions Static Standing Poor Balance Ability Dynamic Standing Poor Balance Ability Device Used FWW Functional Assessments Other Functional Tests standing tolerance x 3 > 1 minute with mod/maxA with Performed FWW M5 PT-IP Objective Assessments Start: 09/03/25 12:04 Freq: NEEDED Status: Active Protocol: Document 09/11/25 16:29 NW (Rec: 09/11/25 16:37 NW [id number]) Orientation Orientation/Cognition Orientation Name,Month Comments Continue to re-orientate M6 PT-IP Treatment Start: 09/03/25 12:04 Freq: NEEDED Status: Active Protocol: Document 09/11/25 16:29 NW (Rec: 09/11/25 16:37 NW [id number]) Physical Therapy Treatment Education Education Provided Safety Other Treatments Other Treatment Continued education for UE placement for transfers with Performed FWW and safety awareness with orientation. M7 PT-IP Assessment and Plan Start: 09/03/25 12:04 Freq: NEEDED Status: Active Protocol: Document 09/11/25 16:29 NW (Rec: 09/11/25 16:37 NW [id number]) PT Summary Assessment and Plan Potential Rehabilitation Good Potential Status of Condition Evolving at Evaluation Summary Impairments Strength,Cognition,Bed Mobility,Transfers,Gait,Activity Tolerance Progress Towards Slow Progress due to Activity Tolerance Goals Assessment Summary Alvin require similar amount of assist of Liliana for bed mobility and modA for STS with FWW from edge of bed. Pt requires heavy cues with manual facilitation for side stepping at edge of bed to R. Fatigues quickly within session with vitals remaining stable. Pt returned to bed with bed alarm armed with call light in reach and RN notified. Continue to recommend SNF. Goals Bed Mobility Goal Independent Transfer Goal Minimal Assistance,Front Wheeled Walker Gait Distance 150 Days to Meet Goals 10 Frequency of Treatment Frequency Of Once a Day Treatment Treatment Plan Physical Therapy Bed Mobility Training,Transfer Training,Gait Training, Treatment Plan Therapeutic Exercise,Balance Retraining,Discharge Planning Other FWW for gait as needed for safe gait for home Recommendations and Next Treatment Focus Precautions Other Precautions falls risk Recommendations To Nursing Amount of Assist 2 Person Assist,Mechanical Lift Needed Discharge Recommendations PT Discharge SNF Rehab Recommendations - PT assist 1-2
--- NOTE | 2025-09-11 19:31 | PC.NURSE ---
Day shift: Up OOB to chair, and BSC. Pericare and topical oint while in bed. Sleeping between care this shift, oriented to self only. Continue on Dysphagia diet with aspiration precautions in place. Unable to administer PO meds due to somnolence and risk for aspiration. BM x 1. Voiding, dark tea colored via Pizarro Cath. High fall risk precautions, bed alarm active. Does not call for staff assist.
[2025-09-11 20:00] VITALS: BP 108/72; PULSE 91; RESP 28; TEMP 36.8; O2SAT 92
[2025-09-11 20:27] VITALS: BP 108/72; PULSE 91
[2025-09-12 04:00] VITALS: BP 90/61; PULSE 71; RESP 18; TEMP 36.3; O2SAT 92
[2025-09-12 07:03] LABS: Blood Urea Nitrogen 5 mg/dL (9-20); Calcium 7.1 mg/dL (8.4-10.2); Carbon Dioxide 27 mmol/L (22-32); Chloride 101 mmol/L (98-107); Estimated Glomerular Filt Rate > 60 mL/min (>60); Glucose 114 mg/dL (70-99); HEMOLYSIS < 15 (0-50); Potassium 2.9 mmol/L (3.4-5.1); Sodium 133 mmol/L (137-145)
--- NOTE | 2025-09-12 09:15 | P.PN_ITS ---
Subjective Subjective Date Patient Seen: 09/12/25 Interval history: 09/01: Patient is less somnolent today but does not make meaningful verbal responses bilirubin has dropped to 7.8 from 10 pneumonia has dropped from 72-62 potassium was 2.9 09/02: Today patient is less somnolent but still quite confused and somnolent patient appears to have dysphagia bilirubin has de-escalated to 6.5 potassium 3.1 09/03: More alert with improved labs. Weaned phenobarbital. Bili 6.5, NH3 42. 09/05: More alert and most recent Bilirubin is 7.0. AST 97, alk phos 239. Patient and his mother who is POA agreed that other family members could be briefed. Daughter is nurse and granddaughter is a physician. Discussed with his son today. Appropriate for hospice and will need retirement care. Tinea pedis rash to be treated. Minimal swallowing noted by speech therapy. Self feeding very limited noted on OT eval. 09/06: Much more alert and verbally argumentative today. He is demanding to go home but is not capable of understanding his physical limitations. Discussed with son who is present. He is not dropping the food down his shirt today but is still unable to swallow so a modified barium swallow will be done. Ammonia level yesterday was less than 9. 09/07: Wax and waning mental status, not oriented to place or year. Required some Ativan for impulsive behavior. 09/08: He was more alert and interactive. He is oriented to hospital and year today. 09/09: Discharge has been delayed due to his insurance and facility reluctance to accept him due to the psychosocial conditions. He has been able to stand up in the room and walk a little bit with physical therapy. He complains of not being fed on his preferred scheduled. He appears very sleepy. His last labs from 09/04 are reviewed. 09/10: Overnight he reportedly appear to aspirate on lactulose so has been NPO today. We will ask speech therapy to see him again. Began on Lasix yesterday and appears less edematous today. Remains confused and jaundiced. Pizarro catheter has very bilious appearing urine. Potassium 2.9 today, after starting Lasix yesterday, so is receiving supplementation. Discharge has been delayed due to his insurance and facility reluctance to accept him due to the psychosocial conditions. 09/11: White blood count 9.3, hemoglobin 10.4, platelets 109. Sodium 133 potassium 3.2. He will receive additional 40 mEq of IV potassium today. Total bilirubin 6.0. AST 74. He is sleeping/sedated from his Librium during my visit. He continues on dysphagia diet per speech therapy re-evaluation yesterday. The caution was to not give him anything to eat or drink if he is sedated. Hopefully stopping the Librium will help that. 09/12: The patient is much more interactive and alert today (after stopping the Librium). He is asking for a shower. He is talking about his dog at home. Potassium is 2.9. Now that he is swallowing well that will be replaced with oral potassium. He will also be started on spironolactone and the Lasix dose will be decreased. NAD, alert and oriented to person. Speech focused and much more interactive. Lungs are clear, normal rate and effort. Heart is regular, no murmur gallop or rub. Abdomen is soft, less distended. Extremities 2+ bilateral pitting edema Jaundice-quite otero appearing. Flaking rash on both feet improving. A/P: 1. Acute alcohol withdrawal, resolved. 2. Liver failure anasarca, active. 3. Alcohol use disorder, active. 4. Dysphagia 5. Hepatic Encephalopathy, improving. 6. Tinea Pedis 7. Conjunctivitis 8. He has severe weakness and debilitation, is a 2 person assist to stand and transfer. 9. Severe Protein Calorie Malnutrition 10. Hypokalemia PLAN: -he has been declined by numerous retirement facilities. -He is 65 years old and does not have Medicare so his primary insurance is Medicaid which limits SNF options. -He is not stable enough to be discharged home. -there is no family support plan for discharge home. -he is hospice appropriate but is reluctant and over confident that he can recover. -potassium supplementation -continue dysphagia diet, per speech therapy re-evaluation on 09/10. -stopped routine Librium -begin spironolactone, decrease Lasix dose. DISPO: TBD Exam Vital Signs (past 8 hours): - 09/12/25 04:00 Temperature 97.4 F L Pulse Rate 71 Respiratory Rate 18 Blood Pressure 90/61 Pulse Oximetry 92 Oxygen Flow Rate 0 Fraction of Inspired Oxygen 28 SaO2/FiO2 Ratio 335 Oxygen Delivery Method Room Air Oxygen Flow Rate 0 Objective Labs 09/11/25 06:05 09/12/25 06:12 Labs: Laboratory Results - last 24 hr 09/12/25 06:12 Sodium 133 L Potassium 2.9 L Chloride 101 Carbon Dioxide 27 BUN 5 L Creatinine 0.46 L Estimated GFR > 60 BUN/Creatinine Ratio 10.9 Glucose 114 H Calcium 7.1 L PFSH Medical History Tobacco dependence Alcohol use disorder, moderate, dependence Fentanyl use disorder, mild, abuse Seizures Amputation finger Onychomycosis Chronic pancreatitis Alcoholic pancreatitis Fracture of finger, distal phalanx, open Fracture of finger, middle phalanx, open Alcohol abuse Back pain Surgical History History of surgical amputation of finger Family History Mother Osteoarthritis Father Alcohol abuse Medical history unknown Social History household members: none Smoking Status: Current every day smoker alcohol intake: current substance use type: marijuana Assessment & Plan Time-Based Coding :: [TOTAL MINUTES] spent with patient and on the chart (including review of chart, obtaining history, exam, reviewing outside data, placing orders, documenting exam and treatment plan, and counseling patient) on [DATE]. Quality VTE Deep Vein Thrombosis/Pulmonary Embolism Present on Admission: No
[2025-09-12] MEDS: LACTULOSE 20 GM/30 ML SOLUTION PO ×3 (10:24→21:32)
[2025-09-12] MEDS: FOLIC ACID 1 MG TABLET PO (10:25)
[2025-09-12] MEDS: NICOTINE 14 PATCH 14 MG TOP (10:25)
[2025-09-12] MEDS: MULTIVITAMIN 1 TABLET 1 TAB PO (10:25)
[2025-09-12] MEDS: ENOXAPARIN 40 MG/0.4 ML SYRINGE SUBCUT (10:26)
[2025-09-12] MEDS: CLOTRIMAZOLE 1% CRM 30 GM 1 APPLIC TOP ×2 (10:27→21:30)
[2025-09-12] MEDS: SPIRONOLACTONE 25 MG TABLET PO (10:34)
--- NOTE | 2025-09-12 10:59 | SLP.IPNOTE ---
Chart reviewed and RN consulted. RN reported pt was awake and alert earlier in day. He ate his breakfast and took medications in puree carrier without overt s/sx of aspiration. Nursing staff aware of recommended aspiration precautions and recommendation to hold PO intake if pt not fully awake and alert as that increases his aspiration risk. Attempted to complete session, though pt asleep and did not wake up to tactile/verbal stimulation. Order discharged at this time as pt tolerating diet well with aspiration precautions and 1:[address]. He is not appropriate for rehabilitative exercises at this time given overall medical condition. No need for further DECATOR OPERATOR services at this time.
[2025-09-12] MEDS: THIAMINE 100 MG in SODIUM CHLORIDE 0.9% 100 ML 404 MG IV (12:00)
[2025-09-12] MEDS: POTASSIUM CHLORIDE 20 MEQ TAB 40 MEQ PO ×2 (12:00→17:28)
--- NOTE | 2025-09-12 13:03 | DIET.PN1 ---
Dietary Progress Note Assessment: F/u. Spoke to RN. Reports pt is more awake today and eating meals and drinking protein shake. Continue Ensure BID to support energy-protein needs. Ht: 165.1 cm Wt: 70 kg BMI: 25.7 UBW: Last BM: 09/12/25 (09/12/25 10:28) MNA: 10 Junior Score: 20 Diet: 09/11/25 Breakfast Dysphagia Diet Diet Modifications: Hold intake if not awake/alert, 1:1, no straws Food Texture: Level 6-Soft & Bite-sized Liquid Consistency: Level 0 - Thin Nutrition Percent Meal Consumed 0% 09/10/25 18:00 Labs: RBC 2.72 X10^6/uL (4.5-5.9) L 09/11/25 06:05 Hgb 10.4 g/dL (13.5-17.5) L 09/11/25 06:05 Hct 30.1 % (41-53) L 09/11/25 06:05 Creatinine 0.46 mg/dL (0.66-1.25) L 09/12/25 06:12 Lactate 2.2 mmol/L (0.7-2.1) H 08/31/25 15:33 Electronically Signed by: Anitra Hardin 09/12/25 13:03 Clinical Dietitian [address] [address]
[2025-09-12 14:00] VITALS: BP 100/77; PULSE 92; RESP 18; TEMP 36.8; O2SAT 100
[2025-09-12] MEDS: GENTAMICIN 0.3% OPHTH 5 ML 1 DROPS EYE-BOTH ×3 (14:28→21:30)
--- NOTE | 2025-09-12 15:07 | PT-IP ANOTE ---
Pt refused PT treatment secondary to fatigue. Education given on importance secondary to debility. Will continue to follow as able.
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
[2025-09-12 21:00] VITALS: BP 103/69; PULSE 77; RESP 24; TEMP 36.7; O2SAT 92
[2025-09-12 21:32] VITALS: BP 103/69; PULSE 80
[2025-09-13 04:00] VITALS: BP 102/67; PULSE 63; RESP 24; TEMP 36.3; O2SAT 92
[2025-09-13] MEDS: GENTAMICIN 0.3% OPHTH 5 ML 1 DROPS EYE-BOTH ×5 (06:11→21:14)
[2025-09-13 06:51] LABS: Add Manual Diff / Slide Review NO; Hematocrit 27.8 % (41-53); Hemoglobin 9.5 g/dL (13.5-17.5); Lymphocytes Absolute Auto 2000 /uL (1100-4500); Mean Corpuscular HGB Conc 34.1 % (30-36); Mean Corpuscular Hemoglobin 37.5 PG (26-34); Mean Corpuscular Volume 109.9 fL (80-100); Platelet Count 99 X10^3/uL (150-400)
[2025-09-13 06:57] LABS: Alanine Aminotransferase 23 IU/L (<50); Albumin 2.2 g/dL (3.5-5.0); Albumin Globulin Ratio 0.6 (1.0-2.8); Alkaline Phosphatase 195 U/L (38-126); Blood Urea Nitrogen 4 mg/dL (9-20); Calcium 7.3 mg/dL (8.4-10.2); Carbon Dioxide 28 mmol/L (22-32); Chloride 103 mmol/L (98-107); Estimated Glomerular Filt Rate > 60 mL/min (>60); Globulin 3.8 g/dL (1.7-4.1); Glucose 127 mg/dL (70-99); HEMOLYSIS < 15 (0-50); Potassium 3.1 mmol/L (3.4-5.1); Sodium 135 mmol/L (137-145); Total Protein 6.0 g/dL (6.3-8.2)
[2025-09-13 08:11] LABS: Magnesium 1.5 mg/dL (1.6-2.3)
[2025-09-13 09:12] VITALS: BP 113/69; PULSE 70
[2025-09-13] MEDS: FUROSEMIDE 40 MG TABLET 20 MG PO (09:15)
[2025-09-13] MEDS: SODIUM CHLORIDE 0.9% FLUSH 10 ML IV ×2 (09:16→21:14)
[2025-09-13] MEDS: FOLIC ACID 1 MG TABLET PO (09:16)
[2025-09-13] MEDS: LACTULOSE 20 GM/30 ML SOLUTION PO ×3 (09:16→21:13)
[2025-09-13] MEDS: ENOXAPARIN 40 MG/0.4 ML SYRINGE SUBCUT (09:16)
[2025-09-13] MEDS: SPIRONOLACTONE 25 MG TABLET PO (09:16)
[2025-09-13] MEDS: MULTIVITAMIN 1 TABLET 1 TAB PO (09:16)
[2025-09-13] MEDS: NICOTINE 14 PATCH 14 MG TOP (09:16)
[2025-09-13] MEDS: POTASSIUM CHLORIDE 20 MEQ TAB 40 MEQ PO ×2 (09:18→14:33)
--- NOTE | 2025-09-13 09:30 | P.PN_ITS ---
Subjective Subjective Date Patient Seen: 09/13/25 Interval history: 09/01: Patient is less somnolent today but does not make meaningful verbal responses bilirubin has dropped to 7.8 from 10 pneumonia has dropped from 72-62 potassium was 2.9 09/02: Today patient is less somnolent but still quite confused and somnolent patient appears to have dysphagia bilirubin has de-escalated to 6.5 potassium 3.1 09/03: More alert with improved labs. Weaned phenobarbital. Bili 6.5, NH3 42. 09/05: More alert and most recent Bilirubin is 7.0. AST 97, alk phos 239. Patient and his mother who is POA agreed that other family members could be briefed. Daughter is nurse and granddaughter is a physician. Discussed with his son today. Appropriate for hospice and will need long term care. Tinea pedis rash to be treated. Minimal swallowing noted by speech therapy. Self feeding very limited noted on OT eval. 09/06: Much more alert and verbally argumentative today. He is demanding to go home but is not capable of understanding his physical limitations. Discussed with son who is present. He is not dropping the food down his shirt today but is still unable to swallow so a modified barium swallow will be done. Ammonia level yesterday was less than 9. 09/07: Wax and waning mental status, not oriented to place or year. Required some Ativan for impulsive behavior. 09/08: He was more alert and interactive. He is oriented to hospital and year today. 09/09: Discharge has been delayed due to his insurance and facility reluctance to accept him due to the psychosocial conditions. He has been able to stand up in the room and walk a little bit with physical therapy. He complains of not being fed on his preferred scheduled. He appears very sleepy. His last labs from 09/04 are reviewed. 09/10: Overnight he reportedly appear to aspirate on lactulose so has been NPO today. We will ask speech therapy to see him again. Began on Lasix yesterday and appears less edematous today. Remains confused and jaundiced. Pizarro catheter has very bilious appearing urine. Potassium 2.9 today, after starting Lasix yesterday, so is receiving supplementation. Discharge has been delayed due to his insurance and facility reluctance to accept him due to the psychosocial conditions. 09/11: White blood count 9.3, hemoglobin 10.4, platelets 109. Sodium 133 potassium 3.2. He will receive additional 40 mEq of IV potassium today. Total bilirubin 6.0. AST 74. He is sleeping/sedated from his Librium during my visit. He continues on dysphagia diet per speech therapy re-evaluation yesterday. The caution was to not give him anything to eat or drink if he is sedated. Hopefully stopping the Librium will help that. 09/12: The patient is much more interactive and alert today (after stopping the Librium). He is asking for a shower. He is talking about his dog at home. Potassium is 2.9. Now that he is swallowing well that will be replaced with oral potassium. He will also be started on spironolactone and the Lasix dose will be decreased. 09/13: Edema seems to have worsened with the decrease of Lasix dose. The potassium continues to run low at 3.1. He is receiving an additional 80 mEq p.o. today. The magnesium level is 1.5 so that will be addressed. The hemoglobin has dropped from 10.4 down to 9.5. The platelets have dropped to 99. I called and spoke with his mother about the lack of discharge options as multiple long term facilities have declined. She is coming over from out of state and is going to ask for assistance finding caregivers for him at his home. NAD, alert and oriented to person. Speech focused and much more interactive. Lungs are clear, normal rate and effort. Heart is regular, no murmur gallop or rub. Abdomen is soft, less distended. Extremities 2+ bilateral pitting edema Jaundice-quite otero appearing. Flaking rash on both feet improving. Pizarro catheter with bilious urine A/P: 1. Acute alcohol withdrawal, resolved. 2. Liver failure anasarca, active. 3. Alcohol use disorder, active. 4. Dysphagia 5. Hepatic Encephalopathy, improving. 6. Tinea Pedis 7. Conjunctivitis 8. He has severe weakness and debilitation, is a 2 person assist to stand and transfer. 9. Severe Protein Calorie Malnutrition 10. Hypokalemia/hypomagnesemia PLAN: -he has been declined by numerous long term facilities. His family have been informed that he will need to discharge home with 24 hour caregivers. -He is 65 years old and does not have Medicare so his primary insurance is Medicaid which limits SNF options. -He is not stable enough to be discharged home without 24 hour caregivers. -he is hospice appropriate but is reluctant and over confident that he can recover. -potassium and magnesium supplementation -continue dysphagia diet, per speech therapy re-evaluation on 09/10. -stopped routine Librium -continue spironolactone and Lasix. DISPO: TBD Exam Vital Signs (past 8 hours): - 09/13/25 04:00 Temperature 97.3 F L Pulse Rate 63 Respiratory Rate 24 Blood Pressure 102/67 Pulse Oximetry 92 Oxygen Flow Rate 0 Fraction of Inspired Oxygen 28 SaO2/FiO2 Ratio 335 Oxygen Delivery Method Room Air Oxygen Flow Rate 0 Objective Labs 09/13/25 06:20 09/13/25 06:20 Labs: Laboratory Results - last 24 hr 09/13/25 06:20 WBC 8.6 RBC 2.53 L Hgb 9.5 L Hct 27.8 L MCV 109.9 H MCH 37.5 H MCHC 34.1 RDW 15.4 H Plt Count 99 L Neut % (Auto) 64.5 Lymph % (Auto) 23.3 L Isabela % (Auto) 10.0 Eos % (Auto) 0.7 L Baso % (Auto) 1.5 Neut # (Auto) 5500 Lymph # (Auto) 2000 Isabela # (Auto) 900 Eos # (Auto) 100 Baso # (Auto) 100 Sodium 135 L Potassium 3.1 L Chloride 103 Carbon Dioxide 28 BUN 4 L Creatinine 0.46 L Estimated GFR > 60 BUN/Creatinine Ratio 8.7 Glucose 127 H Calcium 7.3 L Magnesium 1.5 L Total Bilirubin 4.4 H AST 56 ALT 23 Alkaline Phosphatase 195 H Total Protein 6.0 L Albumin 2.2 L Globulin 3.8 Albumin/Globulin Ratio 0.6 L PFSH Medical History Tobacco dependence Alcohol use disorder, moderate, dependence Fentanyl use disorder, mild, abuse Seizures Amputation finger Onychomycosis Chronic pancreatitis Alcoholic pancreatitis Fracture of finger, distal phalanx, open Fracture of finger, middle phalanx, open Alcohol abuse Back pain Surgical History History of surgical amputation of finger Family History Mother Osteoarthritis Father Alcohol abuse Medical history unknown Social History household members: none Smoking Status: Current every day smoker alcohol intake: current substance use type: marijuana Assessment & Plan Time-Based Coding :: [TOTAL MINUTES] spent with patient and on the chart (including review of chart, obtaining history, exam, reviewing outside data, placing orders, documenting exam and treatment plan, and counseling patient) on [DATE]. Quality VTE Deep Vein Thrombosis/Pulmonary Embolism Present on Admission: No
--- NOTE | 2025-09-13 10:26 | CM.DPC ---
Addendum entered by STEFFEN Oglesby 09/13/25 17:12: DCP Updated: Per hospitalist, pt mother was contacted and they were able to have a goals of care conversation since there is a barrier to getting pt accepted at a SNF. Pt mother states she will be in town on 09/15 to assist with coordinating dc. Hospitalist planned with pt mother that pt will be admitted until 24h care acquired since no SNF can accept at this time. OBSTETRICS TEACHER spoke with pt mother, Carmen ph# . OBSTETRICS TEACHER discussed the barrier is mainly pt's insurance not being contracted with SNFs and low reimbursement rate. She verbalized understanding. OBSTETRICS TEACHER discussed paying for 24 hour care with home health vs. Adult Family Home. Pt mother states interest in both plans and would like to discuss when she arrives. Pt mother agrees to this OBSTETRICS TEACHER inquiring with local [facility] of availability until her visit. Pt mother asks this OBSTETRICS TEACHER to have information available for her to review. Adult Family Home initial search: -[facility] ([place]) Contact: Susanna, ph# [phone] Availability: No availability currently, might have available bed next week. Asks us to call her back. -[facility] ([facility]) Contact: Woody, ph# [phone] Availability: Available male private pay beds, call back for bedside assessment scheduling -[facility] ([facility]) Contact: Carmen, ph# [phone] Availability: Left a voice message OBSTETRICS TEACHER printed list of [facility] bed search and private caregiving agencies for pt mother to review, with facesheet. Plan: Continue dc coordination with pt mother to assist with private pay bed search for 24h care. Sherrie Lennon PLASTIC BOAT BUFFER Original Note: DCP SNF Continued: Reviewed EMR and team rounds for pt?s medical status. Per hospitalist, pt medically cleared, progressing well, and pending acceptance at a SNF. OBSTETRICS TEACHER discussed with care team and hospitalist that if no SNFs are able to accept, will need to discuss pt returning home with private pay caregivers/Respite Stay at a facility and potential for Hospice (was declined by pt and mother earlier in admission). OBSTETRICS TEACHER followed up on the previously faxed [facility] SNFs: [facility]- declined [facility]- not contracted [facility]- not contracted (new on 09/13)[facility]- not willing to do a one-time acceptance of low reimbursement [facility] insurance. (new on 09/13)[facility]- left another voice message with Admissions OBSTETRICS TEACHER followed up on the previously faxed [place] SNFs: [facility]- not contracted [facility]- not contracted [facility]- not contracted [facility]- not contracted (new on 09/13)[facility]- left another voice message with Carly (Admissions) (new on 09/13)[facility]- left another voice message with Admissions (new on 09/13)[facility]- left another voice message with Admissions (new on 09/13)[facility]- left another voice message with Admissions (new on 09/13)[facility]- Called and found that mailbox is full and can't take any more messages (new on 09/13)[facility]- left another voice message with Admissions Barrier: Low reimbursement insurance and many SNFs not contracted with pt insurance. Plan: Anticipating coordination of private caregivers, potentially Hospice OR a respite stay at a facility - will need to have a goals of care plan with pt and family. CM team following for coordination and support. ERNIE Oconnor
[2025-09-13] MEDS: CLOTRIMAZOLE 1% CRM 30 GM 1 APPLIC TOP ×2 (10:37→21:14)
--- NOTE | 2025-09-13 12:29 | OT.IP.TRT ---
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 coma (08/31/25) Occupational Therapy Treatment Note M2 OT-IP Current Condition Start: 09/05/25 09:50 Freq: Status: Active Protocol: Document 09/13/25 12:10 AMS (Rec: 09/13/25 12:29 AMS Desktop) Occupational Therapy Current Condition Current Condition Evaluation Date 09/05/25 Treatment Diagnosis ETOH abuse, acute hypokalemia, weakness, decreased self care Post Operative Precautions Other Precautions falls risk Weight Bearing Status Weight Bearing Full Weight Bearing Status M3 OT- IP Subjective and Pain Start: 09/05/25 09:50 Freq: Status: Active Protocol: Document 09/13/25 12:10 AMS (Rec: 09/13/25 12:29 AMS Desktop) OT- Subjective Occupational Therapy Visit Type Type Treatment Note Visit Start Time 11:25 Visit Stop Time 12:00 Notes Alvin was agreeable to treatment. OT Pain Assessment Pain When Pain Assessed At Rest M4 OT- IP ADL's Start: 09/05/25 09:50 Freq: Status: Active Protocol: Document 09/13/25 12:10 AMS (Rec: 09/13/25 12:29 AMS Desktop) OT [id number] Comments OT Self-Feeding Self-feeding was not observed. Comments OT ADL-Grooming Comments OT Grooming Comments Self-care was not observed. OT ADL-Oral Care Comments Oral Care Comments Oral care was not observed. OT ADL-Dressing Comments OT Dressing Comments Dependent w/ management of catheter bag. OT ADL-Bathing Comments OT Bathing Comments Bathing was not observed. M5 OT- IP IADL's Start: 09/05/25 09:50 Freq: Status: Active Protocol: Document 09/13/25 12:10 AMS (Rec: 09/13/25 12:29 AMS Desktop) OT-Instrumental Activities of Daily Living Deficits IADL Deficits Deficits Identified Medication Management Medication Per previous OT, unsafe to manage himself Management Comments Money Management Money Management Per previous OT, needs assistance Comments Meal Preparation Meal Preparation Per previous OT, needs assistance Comments Logistics Research Engineer Logistics Research Engineer Per previous OT, needs assistance Comments Driving Driving Comments Per previous OT, needs assistance M6 OT- IP Functional Cognition Start: 09/05/25 09:50 Freq: Status: Active Protocol: Document 09/13/25 12:10 AMS (Rec: 09/13/25 12:29 AMS Desktop) Cognitive Factors Limiting Selfcare Function Cognitive Ability Patient Orientation Name,Situation Attention Span Capable of Focused Attention,Capable of Sustained Ability Attention Ability to Follow Able to Follow One Step Commands with Increased Time, Commands Able to Follow One Step Commands with Repetition OT- Vision and Hearing OT- Hearing Assessment OT- Hearing WFL Assessment OT- Vision Assessment Visual Acuity WFL,Glasses For Reading M7 OT- IP Mobility and Balance Start: 09/05/25 09:50 Freq: Status: Active Protocol: Document 09/13/25 12:10 AMS (Rec: 09/13/25 12:29 AMS Desktop) OT- Bed Mobility Assessment Rolling Type of Rolling Roll to Right Level of Assistance 2 Person Assistance Supine to Sit Supine to Sit Assist Moderate Assistance,2 Person Assistance Sit to Supine Sit to Supine Assist Moderate Assistance,2 Person Assistance Scooting Scooting to Edge of Maximum Assistance,2 Person Assistance Bed Scooting Up and Down Maximum Assistance,2 Person Assistance in Bed OT-Transfer Assessment Sit to and From Stand Sit to and from Moderate Assistance,2 Person Assistance Stand Transfers Transfer Ability Moderate Assistance,2 Person Assistance Technique Transfer Destination Chair Devices Transfer Assistive Front Wheeled Walker Devices OT- Gait Assessment Gait Able to Maintain Yes Weight Bearing Status During Gait Assistive Devices Assistive Device Front Wheeled Walker OT- Balance Assessment Sitting Balance and Reactions Static Sitting Poor Balance Ability Dynamic Sitting Poor Balance Ability Standing Balance and Reactions Static Standing Poor Balance Ability Dynamic Standing Poor Balance Ability M8 OT- IP Objective Assessments Start: 09/05/25 09:50 Freq: Status: Active Protocol: Document 09/05/25 09:00 BRITNI (Rec: 09/05/25 10:07 BRITNI Desktop) OT Gross Range of Motion Upper Extremity Range of Motion Assessment Within Functional Limits OT Strength Hand Gold Wheel Blocker And Polisher Strength Hand Dominance Right Comments Strength Comments strength not formally assessed, will assess at a later time. M9 OT- IP Assessment and Plan Start: 09/05/25 09:50 Freq: Status: Active Protocol: Document 09/13/25 12:10 AMS (Rec: 09/13/25 12:29 AMS Desktop) OT Summary Assessment and Plan Potential Rehabilitation Fair Potential Summary OT Impairments Balance,Functional Cognition,Functional Mobility,Self- Feeding,Grooming,Dressing,Toileting,Bathing,Toilet Transfers,Shower Transfers,Activity Tolerance Progress Towards Slow Progress due to Medical Issues,Slow Progress due Goals to Cognition Assessment Summary Pt was alert within treatment session; he was agreeable to transfer to chair with assistance. Provided w/ non- skid socks; given poor sizing, scissors were taken to the tops of the socks to improve the fit (x both feet; poor fit around the ankles/top of the feet). Dislike of the feeling of the arm rests of the chair; thus, chair was modified per patient request. 2-person assist with 3rd person readily available (given decreased balance at EOB). Max assist w/ transferring from supine -> EOB particularly w/ need for assist w/ scooting to EOB given decreased weight shifting L <-> R. Patient required 2-person assist throughout treatment session; 3rd person provided assist given increased trunk extension at EOB without bed railing and/or clinician assist; improved sitting balance at EOB with use of walker. Transferred to chair w/ FWW w/ 2 person assist. Items were placed within arm's reach; fall alarm was put on patient. Frequency of Treatment Other frequency 5x/wk Treatment Plan OT Treatment Plan ADL Training,Functional Cognition Training,Functional Mobility,Therapeutic Exercises,Patient/Family Education ,Discharge Planning Other Treatment ADLs, functional tfs Recommendations and Next Treatment Focus Discharge Recommendations OT Discharge SNF Rehab Recommendations Other Discharge strict 21/04 assist required Recommendations Transportation Needs Wheelchair/Cabulance at Discharge
--- NOTE | 2025-09-13 12:34 | PT.IPTN ---
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 coma (08/31/25) Physical Therapy Treatment Note M2 PT-IP Current Condition Start: 09/03/25 12:04 Freq: NEEDED Status: Active Protocol: Document 09/13/25 12:06 LRN (Rec: 09/13/25 12:34 LRN Laptop) Physical Therapy Current Condition Current Condition Evaluation Date 09/03/25 Treatment Diagnosis weakness Onset Date 08/31/25 M3 PT-IP Subjective Start: 09/03/25 12:04 Freq: NEEDED Status: Active Protocol: Document 09/13/25 12:06 LRN (Rec: 09/13/25 12:34 LRN Laptop) Subjective Physical Therapy Visit Type Type Treatment Note Visit Start Time 11:20 Visit Stop Time 12:00 Physical Therapy Visit Comments Patient Comments Pt agreeable to get up for PT and sit in chair with his feet down. Pt M4 PT-IP Mobility and Gait Start: 09/03/25 12:04 Freq: NEEDED Status: Active Protocol: Document 09/13/25 12:06 LRN (Rec: 09/13/25 12:34 LRN Laptop) PT-Bed Mobility Assessment Supine to Sit Supine to Sit Moderate Assistance,Maximum Assistance,2 Person Assistance PT-Transfer Assessment Sit to and From Stand Sit to and from Minimal Assistance,1 Person Assistance Stand Equipment Transfer Assistive Gait Belt,Front Wheeled Walker Device Transfers Transfer Destination Chair Transfer Technique Stand Step Pivot Transfer Ability Level of Assist Moderate Assistance,2 Person Assistance Comments Mobility Comments Uncontrolled stand>sit. Required heavy assist to sit upright at edge of bed, and was not able to scoot forward to EOB due to heavy posterior lean. One episode of slow recline back by patient for a reclined rest on his elbows. Pt required Max A to come back to upright sitting. Stand pivot transfer required much vcuing. Gait Assessment Gait Gait Assistance Moderate Assistance,2 Person Assist Required: Distance (Feet) 2 Able to Maintain Yes Weight Bearing Status During Gait Assistive Devices Assistive Device Gait Belt,Front Wheeled Walker Gait Deviations General Gait Pattern Decreased Feet Clearance Factors Limiting Gait Function Factors Limiting Decreased Activity Tolerance,Decreased Strength, Gait Function Difficulty Following Directions,Poor Balance,Poor Safety Awareness PT-Balance Assessment Sitting Balance and Reactions Static Sitting Poor Balance Ability Dynamic Sitting Poor Balance Ability Standing Balance and Reactions Static Standing Poor Balance Ability Dynamic Standing Poor Balance Ability Device Used FWW Comments Other Balance Tests/ Posterior lean in standing even with cuing to shift wgt Deviations/Treatment forward. Pt had extreme difficulty moving his R leg : sideways outward for sidestepping towards chair from bed. M5 PT-IP Objective Assessments Start: 09/03/25 12:04 Freq: NEEDED Status: Active Protocol: Document 09/13/25 12:06 LRN (Rec: 09/13/25 12:34 LRN Laptop) Orientation Orientation/Cognition Orientation Name Comments Continue to re-orientate M6 PT-IP Treatment Start: 09/03/25 12:04 Freq: NEEDED Status: Active Protocol: Document 09/13/25 12:06 LRN (Rec: 09/13/25 12:34 LRN Laptop) Physical Therapy Treatment Education Education Provided Safety Other Treatments Other Treatment Continued education for UE placement for transfers with Performed FWW and safety awareness with orientation, balance training. M7 PT-IP Assessment and Plan Start: 09/03/25 12:04 Freq: NEEDED Status: Active Protocol: Document 09/13/25 12:06 LRN (Rec: 09/13/25 12:34 LRN Laptop) PT Summary Assessment and Plan Potential Rehabilitation Good Potential Status of Condition Evolving at Evaluation Summary Impairments Strength,Balance,Cognition,Bed Mobility,Transfers,Gait, Activity Tolerance Progress Towards Progressing Toward Goals Goals Assessment Summary Pt was pleasant & agreeable to therapy. He demonstrated poor sitting balance and difficulty with bed mobility, transfers and gait. He required mod+ to max assist with bed mobility (max primarily with scooting to EOB), and modA for STS transfer. Gait required constant cuing and mod A for balance. Pt did a stand pivot to chair with some movement of the feet and did mostly uncontrolled sit once he placed his hand on the armrest. He was able to move back in the chair independently with cuing and refused elevation of his legs. Chair alarm was placed and tray table/call light was placed within reach, nursing was notified to put pt back to bed when needed with 2 person assist. Goals Bed Mobility Goal Independent Transfer Goal Minimal Assistance,Front Wheeled Walker Gait Distance 150 Days to Meet Goals 10 Frequency of Treatment Frequency Of Once a Day Treatment Treatment Plan Physical Therapy Bed Mobility Training,Transfer Training,Gait Training, Treatment Plan Therapeutic Exercise,Balance Retraining,Discharge Planning Other FWW for gait as needed for safe gait for home Recommendations and Next Treatment Focus Precautions Other Precautions falls risk Recommendations To Nursing Amount of Assist 2 Person Assist Needed Discharge Recommendations PT Discharge SNF Rehab Recommendations - PT assist 2
[2025-09-13] MEDS: MAGNESIUM CHLORIDE 64 MG TABLET 128 MG PO (12:55)
[2025-09-13 15:00] VITALS: BP 82/57; PULSE 57; RESP 18; O2SAT 92
[2025-09-13 19:00] VITALS: BP 111/77; PULSE 75; RESP 21; TEMP 36.8; O2SAT 94
--- NOTE | 2025-09-14 04:35 | PC.NURSE ---
23:11- BP 97/46, MAP 56, R32, T 99.6, HR 83, O2 96% 3L. Notified Dr. Ortiz and received order for 250cc NS bolus. 00:15- BP109/37, MAP 65. Monitor, per Dr. Ortiz. 01:02- BP 97/40, MAP of 56. Noted by Dr. Ortiz with no orders.
[2025-09-14] MEDS: GENTAMICIN 0.3% OPHTH 5 ML 1 DROPS EYE-BOTH ×4 (06:12→20:59)
[2025-09-14 07:15] LABS: Add Manual Diff / Slide Review NO; Hematocrit 26.2 % (41-53); Hemoglobin 9.0 g/dL (13.5-17.5); Lymphocytes Absolute Auto 2200 /uL (1100-4500); Mean Corpuscular HGB Conc 34.2 % (30-36); Mean Corpuscular Hemoglobin 38.1 PG (26-34); Mean Corpuscular Volume 111.5 fL (80-100); Platelet Count 100 X10^3/uL (150-400)
--- NOTE | 2025-09-14 07:27 | P.PN_ITS ---
Subjective Subjective Date Patient Seen: 09/14/25 Interval history: 09/01: Patient is less somnolent today but does not make meaningful verbal responses bilirubin has dropped to 7.8 from 10 pneumonia has dropped from 72-62 potassium was 2.9 09/02: Today patient is less somnolent but still quite confused and somnolent patient appears to have dysphagia bilirubin has de-escalated to 6.5 potassium 3.1 09/03: More alert with improved labs. Weaned phenobarbital. Bili 6.5, NH3 42. 09/05: More alert and most recent Bilirubin is 7.0. AST 97, alk phos 239. Patient and his mother who is POA agreed that other family members could be briefed. Daughter is nurse and granddaughter is a physician. Discussed with his son today. Appropriate for hospice and will need senior living care. Tinea pedis rash to be treated. Minimal swallowing noted by speech therapy. Self feeding very limited noted on OT eval. 09/06: Much more alert and verbally argumentative today. He is demanding to go home but is not capable of understanding his physical limitations. Discussed with son who is present. He is not dropping the food down his shirt today but is still unable to swallow so a modified barium swallow will be done. Ammonia level yesterday was less than 9. 09/07: Wax and waning mental status, not oriented to place or year. Required some Ativan for impulsive behavior. 09/08: He was more alert and interactive. He is oriented to hospital and year today. 09/09: Discharge has been delayed due to his insurance and facility reluctance to accept him due to the psychosocial conditions. He has been able to stand up in the room and walk a little bit with physical therapy. He complains of not being fed on his preferred scheduled. He appears very sleepy. His last labs from 09/04 are reviewed. 09/10: Overnight he reportedly appear to aspirate on lactulose so has been NPO today. We will ask speech therapy to see him again. Began on Lasix yesterday and appears less edematous today. Remains confused and jaundiced. Pizarro catheter has very bilious appearing urine. Potassium 2.9 today, after starting Lasix yesterday, so is receiving supplementation. Discharge has been delayed due to his insurance and facility reluctance to accept him due to the psychosocial conditions. 09/11: White blood count 9.3, hemoglobin 10.4, platelets 109. Sodium 133 potassium 3.2. He will receive additional 40 mEq of IV potassium today. Total bilirubin 6.0. AST 74. He is sleeping/sedated from his Librium during my visit. He continues on dysphagia diet per speech therapy re-evaluation yesterday. The caution was to not give him anything to eat or drink if he is sedated. Hopefully stopping the Librium will help that. 09/12: The patient is much more interactive and alert today (after stopping the Librium). He is asking for a shower. He is talking about his dog at home. Potassium is 2.9. Now that he is swallowing well that will be replaced with oral potassium. He will also be started on spironolactone and the Lasix dose will be decreased. 09/13: Edema seems to have worsened with the decrease of Lasix dose. The potassium continues to run low at 3.1. He is receiving an additional 80 mEq p.o. today. The magnesium level is 1.5 so that will be addressed. The hemoglobin has dropped from 10.4 down to 9.5. The platelets have dropped to 99. I called and spoke with his mother about the lack of discharge options as multiple senior living facilities have declined. She is coming over from out of state and is going to ask for assistance finding caregivers for him at his home. 09/14: Per further discussions with social service/enterprise resource planner and his mother we are pivoting to a target of adult family home discharge. Today he is alert and conversant without significant agitation. He is looking forward to a shower. The hemoglobin continues to drop slowly, now down to 9.0. Check B12, folate and iron. His edema seems to have increased so the Lasix dose will be increased back up to 40 mg. The flaking rash on his feet has returned so we will change the topical treatment to nystatin. We will also remove the Pizarro catheter today. His urine continues to be very bilious NAD, alert and oriented to person. Speech focused and much more interactive. Lungs are clear, normal rate and effort. Heart is regular, no murmur gallop or rub. Abdomen is soft, less distended. Extremities 2-3+ bilateral pitting edema Jaundice-quite otero appearing. Flaking rash on both feet recurring Pizarro catheter with bilious urine A/P: 1. Acute alcohol withdrawal, resolved. 2. Liver failure anasarca, active. 3. Alcohol use disorder, active. 4. Dysphagia 5. Hepatic Encephalopathy, improving. 6. Tinea Pedis 7. Conjunctivitis 8. He has severe weakness and debilitation, is a 2 person assist to stand and transfer. 9. Severe Protein Calorie Malnutrition 10. Hypokalemia/hypomagnesemia 11. Macrocytic Anemia PLAN: -he has been declined by numerous senior living facilities. The current goal is [facility]. -He is 65 years old and does not have Medicare so his primary insurance is Medicaid which limits SNF options. -He is not stable enough to be discharged home without 24 hour caregivers. [facility] would be a good option for him. -he is hospice appropriate but has been reluctant. -change from clotrimazole to nystatin for his tinea. -potassium and magnesium supplementation -continue dysphagia diet, per speech therapy re-evaluation on 09/10. -stopped routine Librium -continue spironolactone and increase Lasix. -remove Pizarro catheter -check B12, folate, iron level. DISPO: TBD likely adult family home. Exam Vital Signs (past 8 hours): Fraction of Inspired Oxygen 28 SaO2/FiO2 Ratio 335 Oxygen Delivery Method Room Air Oxygen Flow Rate 0 Objective Labs 09/14/25 06:11 09/14/25 06:11 Labs: Laboratory Results - last 24 hr 09/13/25 09/14/25 06:20 06:11 WBC 9.6 RBC 2.35 L Hgb 9.0 L Hct 26.2 L MCV 111.5 H MCH 38.1 H MCHC 34.2 RDW 15.5 H Plt Count 100 L Neut % (Auto) 66.3 Lymph % (Auto) 22.7 L [place] % (Auto) 9.4 Eos % (Auto) 0.6 L Baso % (Auto) 1.0 Neut # (Auto) 6400 Lymph # (Auto) 2200 [place] # (Auto) 900 Eos # (Auto) 100 Baso # (Auto) 100 Magnesium 1.5 L PFSH Medical History Tobacco dependence Alcohol use disorder, moderate, dependence Fentanyl use disorder, mild, abuse Seizures Amputation finger Onychomycosis Chronic pancreatitis Alcoholic pancreatitis Fracture of finger, distal phalanx, open Fracture of finger, middle phalanx, open Alcohol abuse Back pain Surgical History History of surgical amputation of finger Family History Mother Osteoarthritis Father Alcohol abuse Medical history unknown Social History household members: none Smoking Status: Current every day smoker alcohol intake: current substance use type: marijuana Assessment & Plan Time-Based Coding :: [TOTAL MINUTES] spent with patient and on the chart (including review of chart, obtaining history, exam, reviewing outside data, placing orders, documenting exam and treatment plan, and counseling patient) on [DATE]. Quality VTE Deep Vein Thrombosis/Pulmonary Embolism Present on Admission: No
[2025-09-14 07:40] LABS: Blood Urea Nitrogen 6 mg/dL (9-20); Calcium 7.1 mg/dL (8.4-10.2); Carbon Dioxide 26 mmol/L (22-32); Chloride 101 mmol/L (98-107); Estimated Glomerular Filt Rate > 60 mL/min (>60); Glucose 117 mg/dL (70-99); HEMOLYSIS < 15 (0-50); Potassium 3.7 mmol/L (3.4-5.1); Sodium 132 mmol/L (137-145)
[2025-09-14 08:04] LABS: HEMOLYSIS < 15 (0-50); Iron 106 ug/dL (49-181)
[2025-09-14 08:14] LABS: Total Iron Binding Capacity 145 ug/dL (261-462); Transferrin 85 mg/dL (206-381)
[2025-09-14 08:17] VITALS: BP 108/74; PULSE 75
[2025-09-14] MEDS: FOLIC ACID 1 MG TABLET PO (08:17)
[2025-09-14] MEDS: MAGNESIUM OXIDE 400 MG TABLET PO (08:17)
[2025-09-14 08:18] LABS: Percent Iron Saturation 73 % (20-50)
[2025-09-14] MEDS: NICOTINE 14 PATCH 14 MG TOP (08:19)
[2025-09-14] MEDS: LACTULOSE 20 GM/30 ML SOLUTION PO ×3 (08:19→20:57)
[2025-09-14] MEDS: MULTIVITAMIN 1 TABLET 1 TAB PO (08:19)
[2025-09-14] MEDS: FUROSEMIDE 40 MG TABLET 20 MG PO (08:19)
[2025-09-14] MEDS: CLOTRIMAZOLE 1% CRM 30 GM 1 APPLIC TOP (08:20)
[2025-09-14] MEDS: ENOXAPARIN 40 MG/0.4 ML SYRINGE SUBCUT (08:20)
[2025-09-14] MEDS: SODIUM CHLORIDE 0.9% FLUSH 10 ML IV ×2 (08:20→20:56)
[2025-09-14] MEDS: SPIRONOLACTONE 25 MG TABLET PO (08:22)
[2025-09-14 09:14] LABS: Folate 5.5 ng/mL (2.76-20.0); Vitamin B12 > 1000 pg/mL (239-931)
[2025-09-14 09:26] LABS: Anisocytosis 1+; Macrocytosis 1+; Target Cells 1+
[2025-09-14 11:00] VITALS: BP 108/75; PULSE 60; RESP 18; TEMP 36.3; O2SAT 95
--- NOTE | 2025-09-14 11:54 | PT.IPTN ---
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 coma (08/31/25) Physical Therapy Treatment Note M2 PT-IP Current Condition Start: 09/03/25 12:04 Freq: NEEDED Status: Active Protocol: Document 09/13/25 12:06 LRN (Rec: 09/13/25 12:34 LRN Laptop) Physical Therapy Current Condition Current Condition Evaluation Date 09/03/25 Treatment Diagnosis weakness Onset Date 08/31/25 M3 PT-IP Subjective Start: 09/03/25 12:04 Freq: NEEDED Status: Active Protocol: Document 09/14/25 12:06 NW (Rec: 09/14/25 12:14 NW [id number]) Subjective Physical Therapy Visit Type Type Treatment Note Visit Start Time 11:23 Visit Stop Time 11:54 Physical Therapy Visit Comments Patient Comments Pt is happy he had a shower and is agreeable to participate. Patient Goals Leave the hospital M4 PT-IP Mobility and Gait Start: 09/03/25 12:04 Freq: NEEDED Status: Active Protocol: Document 09/14/25 12:06 NW (Rec: 09/14/25 12:14 NW [id number]) PT-Bed Mobility Assessment Rolling Type of Rolling Roll to Right Level of Assist Minimal Assistance Supine to Sit Supine to Sit Minimal Assistance,1 Person Assistance Sit to Supine Sit to Supine Minimal Assistance,1 Person Assistance PT-Transfer Assessment Sit to and From Stand Sit to and from Minimal Assistance,1 Person Assistance Stand Equipment Transfer Assistive Gait Belt,Front Wheeled Walker Device Comments Mobility Comments Improved anterior weight shift with STS and UE placement. Upon stance occasionally utilized posterior support on bed. Gait Assessment Gait Gait Assistance Moderate Assistance,1 Person Assist Required: Distance (Feet) 4 Assistive Devices Assistive Device Gait Belt,Front Wheeled Walker Comments Gait Comments Performed side stepping at edge of bed without posterior support. Heavy assistance weight weight shift and AD management. Vitals remain normal. Signs of exertion noted. M5 PT-IP Objective Assessments Start: 09/03/25 12:04 Freq: NEEDED Status: Active Protocol: Document 09/13/25 12:06 LRN (Rec: 09/13/25 12:34 LRN Laptop) Orientation Orientation/Cognition Orientation Name Comments Continue to re-orientate M6 PT-IP Treatment Start: 09/03/25 12:04 Freq: NEEDED Status: Active Protocol: Document 09/14/25 12:06 NW (Rec: 09/14/25 12:14 NW [id number]) Physical Therapy Treatment Other Treatments Other Treatment STS x 6 throughout session from edge of bed with FWW. Performed Side stepping L and R 3 ft x 2 Sitting edge of bed unsupported for rest breaks 3-4 mins x 4 with education on posterior rib cage expansion . standing marches with FWW 3 x 4 bialterally M7 PT-IP Assessment and Plan Start: 09/03/25 12:04 Freq: NEEDED Status: Active Protocol: Document 09/14/25 12:06 NW (Rec: 09/14/25 12:14 NW [id number]) PT Summary Assessment and Plan Potential Rehabilitation Good Potential Status of Condition Evolving at Evaluation Summary Impairments Strength,Balance,Cognition,Bed Mobility,Transfers,Gait, Activity Tolerance Progress Towards Progressing Toward Goals Goals Assessment Summary Pt demonstrates continued progress being Liliana for bed mobility, heavy Liliana/modA for STS and side stepping at edge of bed without posterior support. With fatigue pt utilizes edge of bed on back of thighs for support. Vitals remain stable throughout. Goals Bed Mobility Goal Independent Transfer Goal Minimal Assistance,Front Wheeled Walker Gait Goal Contact Guard Assistance,Front Wheel Walker Gait Distance 50 Days to Meet Goals 10 Frequency of Treatment Frequency Of Once a Day Treatment Treatment Plan Physical Therapy Bed Mobility Training,Transfer Training,Gait Training, Treatment Plan Therapeutic Exercise,Balance Retraining,Discharge Planning Other FWW for gait as needed for safe gait for home Recommendations and Next Treatment Focus Precautions Other Precautions falls risk Recommendations To Nursing Amount of Assist 2 Person Assist,Mechanical Lift Needed Discharge Recommendations PT Discharge SNF Rehab Recommendations Other Discharge HALF-WAY with assistance Recommendations - PT assist 1
--- NOTE | 2025-09-14 12:43 | CM.DPC ---
DCP Cont. Reviewed EMR and team rounds for pt's medical status and updates. Emailed [facility] for local availability. Called her and requested that she start making these phone calls to discuss their openings and pricing prior to her arrival here tomorrow afternoon. She expressed understanding and will make calls today.
[2025-09-14] MEDS: NYSTATIN CREAM 30 GM 1 APPLIC TOP ×2 (15:07→20:59)
[2025-09-14 19:00] VITALS: BP 109/77; PULSE 70; RESP 20; TEMP 36.7; O2SAT 93
[2025-09-15 03:00] VITALS: BP 111/72; PULSE 68; RESP 21; TEMP 36.4; O2SAT 97
[2025-09-15] MEDS: GENTAMICIN 0.3% OPHTH 5 ML 1 DROPS EYE-BOTH ×5 (05:34→21:13)
[2025-09-15 06:47] LABS: Hematocrit 28.0 % (41-53); Hemoglobin 9.6 g/dL (13.5-17.5); Lymphocytes Absolute Auto 1700 /uL (1100-4500); Mean Corpuscular HGB Conc 34.1 % (30-36); Mean Corpuscular Hemoglobin 37.6 PG (26-34); Mean Corpuscular Volume 110.1 fL (80-100); Platelet Count 108 X10^3/uL (150-400)
[2025-09-15 06:50] LABS: Add Manual Diff / Slide Review SLIDE REVIEW
[2025-09-15 07:26] LABS: Blood Urea Nitrogen 6 mg/dL (9-20); Calcium 7.2 mg/dL (8.4-10.2); Carbon Dioxide 30 mmol/L (22-32); Chloride 99 mmol/L (98-107); Estimated Glomerular Filt Rate > 60 mL/min (>60); Glucose 121 mg/dL (70-99); HEMOLYSIS < 15 (0-50); Potassium 3.8 mmol/L (3.4-5.1); Sodium 131 mmol/L (137-145)
--- NOTE | 2025-09-15 07:36 | P.PN_ITS ---
Subjective Subjective Date Patient Seen: 09/15/25 Interval history: 09/01: Patient is less somnolent today but does not make meaningful verbal responses bilirubin has dropped to 7.8 from 10 pneumonia has dropped from 72-62 potassium was 2.9 09/02: Today patient is less somnolent but still quite confused and somnolent patient appears to have dysphagia bilirubin has de-escalated to 6.5 potassium 3.1 09/03: More alert with improved labs. Weaned phenobarbital. Bili 6.5, NH3 42. 09/05: More alert and most recent Bilirubin is 7.0. AST 97, alk phos 239. Patient and his mother who is POA agreed that other family members could be briefed. Daughter is nurse and granddaughter is a physician. Discussed with his son today. Appropriate for hospice and will need fpc care. Tinea pedis rash to be treated. Minimal swallowing noted by speech therapy. Self feeding very limited noted on OT eval. 09/06: Much more alert and verbally argumentative today. He is demanding to go home but is not capable of understanding his physical limitations. Discussed with son who is present. He is not dropping the food down his shirt today but is still unable to swallow so a modified barium swallow will be done. Ammonia level yesterday was less than 9. 09/07: Wax and waning mental status, not oriented to place or year. Required some Ativan for impulsive behavior. 09/08: He was more alert and interactive. He is oriented to hospital and year today. 09/09: Discharge has been delayed due to his insurance and facility reluctance to accept him due to the psychosocial conditions. He has been able to stand up in the room and walk a little bit with physical therapy. He complains of not being fed on his preferred scheduled. He appears very sleepy. His last labs from 09/04 are reviewed. 09/10: Overnight he reportedly appear to aspirate on lactulose so has been NPO today. We will ask speech therapy to see him again. Began on Lasix yesterday and appears less edematous today. Remains confused and jaundiced. Pizarro catheter has very bilious appearing urine. Potassium 2.9 today, after starting Lasix yesterday, so is receiving supplementation. Discharge has been delayed due to his insurance and facility reluctance to accept him due to the psychosocial conditions. 09/11: White blood count 9.3, hemoglobin 10.4, platelets 109. Sodium 133 potassium 3.2. He will receive additional 40 mEq of IV potassium today. Total bilirubin 6.0. AST 74. He is sleeping/sedated from his Librium during my visit. He continues on dysphagia diet per speech therapy re-evaluation yesterday. The caution was to not give him anything to eat or drink if he is sedated. Hopefully stopping the Librium will help that. 09/12: The patient is much more interactive and alert today (after stopping the Librium). He is asking for a shower. He is talking about his dog at home. Potassium is 2.9. Now that he is swallowing well that will be replaced with oral potassium. He will also be started on spironolactone and the Lasix dose will be decreased. 09/13: Edema seems to have worsened with the decrease of Lasix dose. The potassium continues to run low at 3.1. He is receiving an additional 80 mEq p.o. today. The magnesium level is 1.5 so that will be addressed. The hemoglobin has dropped from 10.4 down to 9.5. The platelets have dropped to 99. I called and spoke with his mother about the lack of discharge options as multiple fpc facilities have declined. She is coming over from out of state and is going to ask for assistance finding caregivers for him at his home. 09/14: Per further discussions with social service/environmental planner and his mother we are pivoting to a target of adult family home discharge. Today he is alert and conversant without significant agitation. He is looking forward to a shower. The hemoglobin continues to drop slowly, now down to 9.0. Check B12, folate and iron. His edema seems to have increased so the Lasix dose will be increased back up to 40 mg. The flaking rash on his feet has returned so we will change the topical treatment to nystatin. We will also remove the Pizarro catheter today. His urine continues to be very bilious 09/15: The foot rash does not appear to be responding to tinea treatment so we will treat for eczema with triamcinolone cream. He is feeding himself breakfast today. His mother is working on evaluating several potential adult family homes for him to discharge there soon. He says he is walking with a walker but PT assures me that with a walker he is only able to stand and move slightly sideways so far. His edema appears to be worse. That is likely related to increased oral fluid and dietary salt intake. He is already on Lasix and spironolactone. The hemoglobin has risen to 9.6 today. The sodium is 131 with a potassium of 3.8. The iron level is 106 with a B12 greater than 1000 and a folate of 5.5. NAD, alert and oriented to person. Speech focused and much more interactive. Lungs are clear, normal rate and effort. Heart is regular, no murmur gallop or rub. Abdomen is soft, less distended. Extremities 3+ bilateral pitting edema Jaundice-quite otero appearing. Flaking rash on both feet recurring Pizarro has been removed A/P: 1. Acute alcohol withdrawal, resolved. 2. Liver failure anasarca, active. 3. Alcohol use disorder, active. 4. Dysphagia 5. Hepatic Encephalopathy, improving. 6. Tinea Pedis/dermatitis 7. Conjunctivitis 8. He has severe weakness and debilitation, is a 2 person assist to stand and transfer. 9. Severe Protein Calorie Malnutrition 10. Hypokalemia/hypomagnesemia 11. Macrocytic Anemia PLAN: -he has been declined by numerous fpc facilities. The current goal is [facility]. -He is 65 years old and does not have Medicare so his primary insurance is Medicaid which limits SNF options. -He is not stable enough to be discharged home without 24 hour caregivers. [facility] would be a good option for him. -he is hospice appropriate but has been reluctant. -change from clotrimazole to nystatin for his tinea. Add triamcinolone cream on 09/15. -potassium and magnesium supplementation -continue dysphagia diet, per speech therapy re-evaluation on 09/10. -stopped routine Librium -continue spironolactone and increased Lasix. -removed Pizarro catheter DISPO: TBD likely adult family home. Exam Vital Signs (past 8 hours): - 09/15/25 03:00 Temperature 97.6 F Pulse Rate 68 Respiratory Rate 21 Blood Pressure 111/72 Pulse Oximetry 97 Oxygen Flow Rate 0 Fraction of Inspired Oxygen 28 SaO2/FiO2 Ratio 335 Oxygen Delivery Method Room Air Oxygen Flow Rate 0 Objective Labs 09/15/25 06:30 09/15/25 06:30 Labs: Laboratory Results - last 24 hr 09/14/25 09/15/25 06:11 06:30 WBC 9.7 RBC 2.54 L Hgb 9.6 L Hct 28.0 L MCV 110.1 H MCH 37.6 H MCHC 34.1 RDW 15.0 H Plt Count 108 L Neut % (Auto) 71.2 Lymph % (Auto) 17.3 L [place] % (Auto) 9.8 Eos % (Auto) 0.5 L Baso % (Auto) 1.2 Neut # (Auto) 6900 Lymph # (Auto) 1700 [place] # (Auto) 1000 H Eos # (Auto) 100 Baso # (Auto) 100 RBC Morphology See below Anisocytosis 1+ H Macrocytosis 1+ H Target Cells 1+ H Sodium 132 L Potassium 3.7 Chloride 101 Carbon Dioxide 26 BUN 6 L Creatinine 0.48 L Estimated GFR > 60 BUN/Creatinine Ratio 12.5 Glucose 117 H Calcium 7.1 L Iron 106 TIBC 145 L % Saturation 73 H Transferrin 85 L Vitamin B12 > 1000 H Folate 5.5 PFSH Medical History Tobacco dependence Alcohol use disorder, moderate, dependence Fentanyl use disorder, mild, abuse Seizures Amputation finger Onychomycosis Chronic pancreatitis Alcoholic pancreatitis Fracture of finger, distal phalanx, open Fracture of finger, middle phalanx, open Alcohol abuse Back pain Surgical History History of surgical amputation of finger Family History Mother Osteoarthritis Father Alcohol abuse Medical history unknown Social History household members: none Smoking Status: Current every day smoker alcohol intake: current substance use type: marijuana Assessment & Plan Time-Based Coding :: [TOTAL MINUTES] spent with patient and on the chart (including review of chart, obtaining history, exam, reviewing outside data, placing orders, documenting exam and treatment plan, and counseling patient) on [DATE]. Quality VTE Deep Vein Thrombosis/Pulmonary Embolism Present on Admission: No
[2025-09-15 07:41] LABS: Macrocytosis 2+
[2025-09-15 08:16] VITALS: BP 107/84; PULSE 62; RESP 16; TEMP 36.3; O2SAT 94
[2025-09-15] MEDS: SPIRONOLACTONE 25 MG TABLET PO (08:21)
[2025-09-15] MEDS: NICOTINE 14 PATCH 14 MG TOP (08:21)
[2025-09-15] MEDS: ENOXAPARIN 40 MG/0.4 ML SYRINGE SUBCUT (08:21)
[2025-09-15] MEDS: LACTULOSE 20 GM/30 ML SOLUTION PO ×3 (08:21→21:11)
[2025-09-15 08:22] VITALS: BP 107/84; PULSE 62
[2025-09-15] MEDS: MAGNESIUM OXIDE 400 MG TABLET PO (08:22)
[2025-09-15] MEDS: FUROSEMIDE 40 MG TABLET PO (08:22)
[2025-09-15] MEDS: MULTIVITAMIN 1 TABLET 1 TAB PO (08:22)
[2025-09-15] MEDS: FOLIC ACID 1 MG TABLET PO (08:23)
[2025-09-15] MEDS: SODIUM CHLORIDE 0.9% FLUSH 10 ML IV ×2 (08:23→21:13)
[2025-09-15] MEDS: NYSTATIN CREAM 30 GM 1 APPLIC TOP ×3 (08:23→21:11)
--- NOTE | 2025-09-15 11:35 | PT.IPTN ---
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 coma (08/31/25) Physical Therapy Treatment Note M2 PT-IP Current Condition Start: 09/03/25 12:04 Freq: NEEDED Status: Active Protocol: Document 09/13/25 12:06 LRN (Rec: 09/13/25 12:34 LRN Laptop) Physical Therapy Current Condition Current Condition Evaluation Date 09/03/25 Treatment Diagnosis weakness Onset Date 08/31/25 M3 PT-IP Subjective Start: 09/03/25 12:04 Freq: NEEDED Status: Active Protocol: Document 09/15/25 11:42 NW (Rec: 09/15/25 11:49 NW [id number]) Subjective Physical Therapy Visit Type Type Treatment Note Visit Start Time 11:05 Visit Stop Time 11:35 Physical Therapy Visit Comments Patient Comments Pt is excited his mom is coming today. Patient Goals To go home. M4 PT-IP Mobility and Gait Start: 09/03/25 12:04 Freq: NEEDED Status: Active Protocol: Document 09/15/25 11:42 NW (Rec: 09/15/25 11:49 NW [id number]) PT-Bed Mobility Assessment Rolling Type of Rolling Bilateral Level of Assist Independent Supine to Sit Supine to Sit Minimal Assistance,Bedrails Sit to Supine Sit to Supine Minimal Assistance Scooting Scooting to Edge of Minimal Assistance Bed PT-Transfer Assessment Sit to and From Stand Sit to and from Minimal Assistance,1 Person Assistance,Use of Upper Stand Extremities Equipment Transfer Assistive Gait Belt,Front Wheeled Walker Device Transfers Transfer Destination Chair Transfer Technique Stand Step Pivot Transfer Ability Level of Assist Moderate Assistance,1 Person Assistance,Use of Upper Extremities Comments Mobility Comments ModA for weight shift to allow for LE clearance. Good use of UE support. Cues for AD management with step by step instructions. With fatigue increased trunk flexion . Gait Assessment Gait Gait Assistance Moderate Assistance,2 Person Assist Required: Distance (Feet) 6 Assistive Devices Assistive Device Gait Belt,Front Wheeled Walker Gait Deviations General Gait Pattern Decreased Stride Length,Decreased Feet Clearance,Flexed Trunk,Step-to Gait,Wide Based Gait Comments Gait Comments Heavy assistance with weight shift and AD management. Cues for safety awareness with fatigue and to stand tall. Performed over two unequal bouts with FWW. Vitals remain stable. PT-Balance Assessment Sitting Balance and Reactions Static Sitting Normal Balance Ability Dynamic Sitting Fair Balance Ability Standing Balance and Reactions Static Standing Poor Balance Ability Dynamic Standing Poor Balance Ability Device Used FWW Comments Other Balance Tests/ Requires cues to stand tall and decrease knee Deviations/Treatment hyperextension with anterior weight shift to utilize UE : support. M5 PT-IP Objective Assessments Start: 09/03/25 12:04 Freq: NEEDED Status: Active Protocol: Document 09/13/25 12:06 LRN (Rec: 09/13/25 12:34 LRN Laptop) Orientation Orientation/Cognition Orientation Name Comments Continue to re-orientate M6 PT-IP Treatment Start: 09/03/25 12:04 Freq: NEEDED Status: Active Protocol: Document 09/15/25 11:42 NW (Rec: 09/15/25 11:49 NW [id number]) Physical Therapy Treatment Other Treatments Other Treatment STS x 4 throughout session with FWW Performed Stand pivot step bed <> chair Liliana with fatigue modA M7 PT-IP Assessment and Plan Start: 09/03/25 12:04 Freq: NEEDED Status: Active Protocol: Document 09/15/25 11:42 NW (Rec: 09/15/25 11:49 NW [id number]) PT Summary Assessment and Plan Potential Rehabilitation Good Potential Status of Condition Evolving at Evaluation Summary Impairments Strength,Balance,Cognition,Bed Mobility,Transfers,Gait, Activity Tolerance Progress Towards Progressing Toward Goals Goals Assessment Summary Pt able to ambulate with modA of 1 with chair follow for 6 ft over two bouts. Step by step cues with good ability to follow directions. Decrease assistance required to stand step pivot to Liliana with FWW. Pt moves slow and requires assistance with fatigue awareness. Goals Bed Mobility Goal Independent Transfer Goal Minimal Assistance,Front Wheeled Walker Gait Goal Contact Guard Assistance,Front Wheel Walker Gait Distance 50 Days to Meet Goals 10 Frequency of Treatment Frequency Of Once a Day Treatment Treatment Plan Physical Therapy Bed Mobility Training,Transfer Training,Gait Training, Treatment Plan Therapeutic Exercise,Balance Retraining,Discharge Planning Other FWW for gait as needed for safe gait for home Recommendations and Next Treatment Focus Precautions Other Precautions falls risk Recommendations To Nursing Amount of Assist 2 Person Assist,Mechanical Lift Needed Discharge Recommendations PT Discharge SNF Rehab Recommendations Other Discharge KWAME with assistance Recommendations - PT assist 1
--- NOTE | 2025-09-15 12:09 | CM.DPC ---
DCP Cont. Reviewed EMR and team rounds for pt's medical status and updates. Faxed [facility] pt's clinicals for review. Pending return call if they will accept or need to do a bedside assessment, this is Woody'ryne Dickerson, Woody is at : [phone]. Second local [facility] with an opening is Anni [facility]: [phone]. F/u with sending clinicals if [facility] cannot accept. Pt's mother will fly in later this afternoon, and continue to coordinate and go view these [facility]'s.
--- NOTE | 2025-09-15 15:48 | OT.IPNOTE ---
Pt asleep and family looking into possible [facility] placement for pt.
[2025-09-15 16:00] VITALS: BP 110/70; PULSE 74; RESP 18; TEMP 36.9; O2SAT 98
--- NOTE | 2025-09-15 16:37 | DIET.PN1 ---
Dietary Progress Note Assessment: f/u PO intakes remained improved, majority in last couple days 75-100%. No further nutrition interventions needed. Ht: 165.1 cm Wt: 70 kg BMI: 25.7 Last BM: 09/15/25 (09/15/25 15:03) MNA: 10 Junior Score: 19 Diet: 09/11/25 Breakfast Dysphagia Diet Diet Modifications: Hold intake if not awake/alert, 1:1, no straws Food Texture: Level 6-Soft & Bite-sized Liquid Consistency: Level 0 - Thin Nutrition Percent Meal Consumed 100% 09/15/25 15:03 Percent Meal Consumed 25% 09/15/25 06:00 Percent Meal Consumed 100% 09/14/25 18:00 Percent Meal Consumed 100% 09/14/25 12:46 Percent Meal Consumed 100% 09/14/25 12:16 Percent Meal Consumed 75% 09/13/25 18:00 Labs: RBC 2.54 X10^6/uL (4.5-5.9) L 09/15/25 06:30 Hgb 9.6 g/dL (13.5-17.5) L 09/15/25 06:30 Hct 28.0 % (41-53) L 09/15/25 06:30 Creatinine 0.47 mg/dL (0.66-1.25) L 09/15/25 06:30 Lactate 2.2 mmol/L (0.7-2.1) H 08/31/25 15:33 Iron 106 ug/dL (49-181) 09/14/25 06:11 % Saturation 73 % (20-50) H 09/14/25 06:11 Electronically Signed by: Anitra Hardin 09/15/25 16:37 Clinical Dietitian [address] [address]
[2025-09-15 19:00] VITALS: BP 106/73; PULSE 77; RESP 21; TEMP 36.9; O2SAT 97
[2025-09-16] VITALS: BP 107/66; PULSE 67; RESP 20; TEMP 36.4; O2SAT 92
[2025-09-16 05:34] LABS: Add Manual Diff / Slide Review NO; Hematocrit 25.9 % (41-53); Hemoglobin 9.0 g/dL (13.5-17.5); Lymphocytes Absolute Auto 1900 /uL (1100-4500); Mean Corpuscular HGB Conc 35.0 % (30-36); Mean Corpuscular Hemoglobin 38.4 PG (26-34); Mean Corpuscular Volume 110.0 fL (80-100); Platelet Count 102 X10^3/uL (150-400)
[2025-09-16] MEDS: GENTAMICIN 0.3% OPHTH 5 ML 1 DROPS EYE-BOTH ×5 (05:52→21:05)
[2025-09-16 05:55] LABS: Alanine Aminotransferase 20 IU/L (<50); Albumin 2.2 g/dL (3.5-5.0); Albumin Globulin Ratio 0.6 (1.0-2.8); Alkaline Phosphatase 179 U/L (38-126); Blood Urea Nitrogen 5 mg/dL (9-20); Calcium 7.0 mg/dL (8.4-10.2); Carbon Dioxide 28 mmol/L (22-32); Chloride 99 mmol/L (98-107); Estimated Glomerular Filt Rate > 60 mL/min (>60); Globulin 3.8 g/dL (1.7-4.1); Glucose 120 mg/dL (70-99); HEMOLYSIS < 15 (0-50); Potassium 3.4 mmol/L (3.4-5.1); Sodium 131 mmol/L (137-145); Total Protein 6.0 g/dL (6.3-8.2)
[2025-09-16 08:00] VITALS: BP 115/74; PULSE 60; RESP 21; TEMP 36.5; O2SAT 94
--- NOTE | 2025-09-16 08:22 | P.PN_ITS ---
Subjective Subjective Date Patient Seen: 09/16/25 Interval history: 09/01: Patient is less somnolent today but does not make meaningful verbal responses bilirubin has dropped to 7.8 from 10 pneumonia has dropped from 72-62 potassium was 2.9 09/02: Today patient is less somnolent but still quite confused and somnolent patient appears to have dysphagia bilirubin has de-escalated to 6.5 potassium 3.1 09/03: More alert with improved labs. Weaned phenobarbital. Bili 6.5, NH3 42. 09/05: More alert and most recent Bilirubin is 7.0. AST 97, alk phos 239. Patient and his mother who is POA agreed that other family members could be briefed. Daughter is nurse and granddaughter is a physician. Discussed with his son today. Appropriate for hospice and will need usp care. Tinea pedis rash to be treated. Minimal swallowing noted by speech therapy. Self feeding very limited noted on OT eval. 09/06: Much more alert and verbally argumentative today. He is demanding to go home but is not capable of understanding his physical limitations. Discussed with son who is present. He is not dropping the food down his shirt today but is still unable to swallow so a modified barium swallow will be done. Ammonia level yesterday was less than 9. 09/07: Wax and waning mental status, not oriented to place or year. Required some Ativan for impulsive behavior. 09/08: He was more alert and interactive. He is oriented to hospital and year today. 09/09: Discharge has been delayed due to his insurance and facility reluctance to accept him due to the psychosocial conditions. He has been able to stand up in the room and walk a little bit with physical therapy. He complains of not being fed on his preferred scheduled. He appears very sleepy. His last labs from 09/04 are reviewed. 09/10: Overnight he reportedly appear to aspirate on lactulose so has been NPO today. We will ask speech therapy to see him again. Began on Lasix yesterday and appears less edematous today. Remains confused and jaundiced. Pizarro catheter has very bilious appearing urine. Potassium 2.9 today, after starting Lasix yesterday, so is receiving supplementation. Discharge has been delayed due to his insurance and facility reluctance to accept him due to the psychosocial conditions. 09/11: White blood count 9.3, hemoglobin 10.4, platelets 109. Sodium 133 potassium 3.2. He will receive additional 40 mEq of IV potassium today. Total bilirubin 6.0. AST 74. He is sleeping/sedated from his Librium during my visit. He continues on dysphagia diet per speech therapy re-evaluation yesterday. The caution was to not give him anything to eat or drink if he is sedated. Hopefully stopping the Librium will help that. 09/12: The patient is much more interactive and alert today (after stopping the Librium). He is asking for a shower. He is talking about his dog at home. Potassium is 2.9. Now that he is swallowing well that will be replaced with oral potassium. He will also be started on spironolactone and the Lasix dose will be decreased. 09/13: Edema seems to have worsened with the decrease of Lasix dose. The potassium continues to run low at 3.1. He is receiving an additional 80 mEq p.o. today. The magnesium level is 1.5 so that will be addressed. The hemoglobin has dropped from 10.4 down to 9.5. The platelets have dropped to 99. I called and spoke with his mother about the lack of discharge options as multiple usp facilities have declined. She is coming [place] from [place] of [place] and is going to ask for assistance finding caregivers for him at his home. 09/14: Per further discussions with social service/telecommunications network planner and his mother we are pivoting to a target of adult family home discharge. Today he is alert and conversant without significant agitation. He is looking forward to a shower. The hemoglobin continues to drop slowly, now down to 9.0. Check B12, folate and iron. His edema seems to have increased so the Lasix dose will be increased back up to 40 mg. The flaking rash on his feet has returned so we will change the topical treatment to nystatin. We will also remove the Pizarro catheter today. His urine continues to be very bilious 09/15: The foot rash does not appear to be responding to tinea treatment so we will treat for eczema with triamcinolone cream. He is feeding himself breakfast today. His mother is working on evaluating several potential adult family homes for him to discharge there soon. He says he is walking with a walker but PT assures me that with a walker he is only able to stand and move slightly sideways so far. His edema appears to be worse. That is likely related to increased oral fluid and dietary salt intake. He is already on Lasix and spironolactone. The hemoglobin has risen to 9.6 today. The sodium is 131 with a potassium of 3.8. The iron level is 106 with a B12 greater than 1000 and a folate of 5.5. 09/16: Hemoglobin drifted back down to 9.0 today. Potassium is 3.4. He continues with significant peripheral edema. He is asleep during my visit today. His mother is looking at/touring adult family homes so discharge plans are steadily coming together. NAD, sleeping soundly. Lungs are clear, normal rate and effort. Heart is regular, no murmur gallop or rub. Abdomen is soft, less distended. Extremities 2-3+ bilateral pitting edema Jaundice-quite otero appearing. Flaking rash on both feet recurring Pizarro has been removed A/P: 1. Acute alcohol withdrawal, resolved. 2. Liver failure anasarca, active. 3. Alcohol use disorder, active. 4. Dysphagia 5. Hepatic Encephalopathy, improving. 6. Tinea Pedis/dermatitis 7. Conjunctivitis 8. He has severe weakness and debilitation, is a 2 person assist to stand and transfer. 9. Severe Protein Calorie Malnutrition 10. Hypokalemia/hypomagnesemia 11. Macrocytic Anemia PLAN: -he has been declined by numerous usp facilities. The current goal is [facility]. His mother is back here from [facility] and is helping with that. -He is 65 years old and does not have Medicare so his primary insurance is Medicaid which limits SNF options. -He is not stable enough to be discharged home without 24 hour caregivers. [facility] would be a good option for him. -he is hospice appropriate but has been reluctant. -change from clotrimazole to nystatin for his tinea. Added triamcinolone cream on 09/15. -potassium and magnesium supplementation -continue dysphagia diet, per speech therapy re-evaluation on 09/10. -stopped routine Librium -continue spironolactone and increased Lasix. -removed Pizarro catheter DISPO: TBD likely adult family home. Exam Vital Signs (past 8 hours): Fraction of Inspired Oxygen 28 SaO2/FiO2 Ratio 335 Oxygen Delivery Method Room Air Oxygen Flow Rate 0 Objective Labs 09/16/25 05:05 09/16/25 05:05 Labs: Laboratory Results - last 24 hr 09/16/25 05:05 WBC 9.0 RBC 2.35 L Hgb 9.0 L Hct 25.9 L MCV 110.0 H MCH 38.4 H MCHC 35.0 RDW 14.7 Plt Count 102 L Neut % (Auto) 67.1 Lymph % (Auto) 21.3 L Morrison % (Auto) 9.8 Eos % (Auto) 0.5 L Baso % (Auto) 1.3 Neut # (Auto) 6000 Lymph # (Auto) 1900 Morrison # (Auto) 900 Eos # (Auto) 0 Baso # (Auto) 100 Sodium 131 L Potassium 3.4 Chloride 99 Carbon Dioxide 28 BUN 5 L Creatinine 0.45 L Estimated GFR > 60 BUN/Creatinine Ratio 11.1 Glucose 120 H Calcium 7.0 L Total Bilirubin 2.5 H AST 51 ALT 20 Alkaline Phosphatase 179 H Total Protein 6.0 L Albumin 2.2 L Globulin 3.8 Albumin/Globulin Ratio 0.6 L [facility] Medical History Tobacco dependence Alcohol use disorder, moderate, dependence Fentanyl use disorder, mild, abuse Seizures Amputation finger Onychomycosis Chronic pancreatitis Alcoholic pancreatitis Fracture of finger, distal phalanx, open Fracture of finger, middle phalanx, open Alcohol abuse Back pain Surgical History History of surgical amputation of finger Family History Mother Osteoarthritis Father Alcohol abuse Medical history unknown Social History household members: none Smoking Status: Current every day smoker alcohol intake: current substance use type: marijuana Assessment & Plan Time-Based Coding :: [TOTAL MINUTES] spent with patient and on the chart (including review of chart, obtaining history, exam, reviewing outside data, placing orders, documenting exam and treatment plan, and counseling patient) on [DATE]. Quality VTE Deep Vein Thrombosis/Pulmonary Embolism Present on Admission: No
[2025-09-16] MEDS: ENOXAPARIN 40 MG/0.4 ML SYRINGE SUBCUT (10:20)
[2025-09-16] MEDS: POTASSIUM CHLORIDE 20 MEQ TAB 40 MEQ PO (10:20)
[2025-09-16] MEDS: LACTULOSE 20 GM/30 ML SOLUTION PO ×3 (10:20→21:05)
[2025-09-16 10:21] VITALS: BP 115/74; PULSE 60
[2025-09-16] MEDS: FUROSEMIDE 40 MG TABLET PO (10:21)
[2025-09-16] MEDS: MULTIVITAMIN 1 TABLET 1 TAB PO (10:21)
[2025-09-16] MEDS: FOLIC ACID 1 MG TABLET PO (10:21)
[2025-09-16] MEDS: MAGNESIUM OXIDE 400 MG TABLET PO (10:21)
[2025-09-16] MEDS: NICOTINE 14 PATCH 14 MG TOP (10:21)
[2025-09-16] MEDS: SPIRONOLACTONE 25 MG TABLET PO (10:21)
[2025-09-16] MEDS: SODIUM CHLORIDE 0.9% FLUSH 10 ML IV ×2 (10:22→21:05)
[2025-09-16] MEDS: NYSTATIN CREAM 30 GM 1 APPLIC TOP ×3 (10:22→21:05)
--- NOTE | 2025-09-16 12:49 | CM.DPC ---
DCP Cont. Reviewed EMR and team rounds for pt's medical status and updates. Met with family and pt, explained the need for transition to adult family home due to his increased care needs and home no longer being a safe option. Pt's mom and sister are visiting 2-different [facility]'s today. Faxed in Medicaid LTC tran as well as Hospital expedited form. Pt will need Home Health ordered prior to discharge to [facility], send referral to [facility], they take [facility] insurance. STEFFEN explained to family that we would like to see him discharged by Friday.
--- NOTE | 2025-09-16 14:48 | PT-IP ANOTE ---
Pt refused PT
[2025-09-16 16:19] VITALS: BP 109/79; PULSE 69; RESP 18; TEMP 36.4; O2SAT 97
[2025-09-16 21:02] VITALS: BP 130/73; PULSE 74
[2025-09-17] VITALS: BP 101/68; PULSE 65; RESP 16; TEMP 36.6; O2SAT 94
[2025-09-17 05:12] LABS: Add Manual Diff / Slide Review NO; Hematocrit 24.9 % (41-53); Hemoglobin 8.5 g/dL (13.5-17.5); Lymphocytes Absolute Auto 1900 /uL (1100-4500); Mean Corpuscular HGB Conc 34.3 % (30-36); Mean Corpuscular Hemoglobin 37.7 PG (26-34); Mean Corpuscular Volume 109.9 fL (80-100); Platelet Count 112 X10^3/uL (150-400)
[2025-09-17] MEDS: GENTAMICIN 0.3% OPHTH 5 ML 1 DROPS EYE-BOTH ×5 (05:17→21:38)
[2025-09-17 05:20] LABS: Blood Urea Nitrogen 5 mg/dL (9-20); Calcium 7.1 mg/dL (8.4-10.2); Carbon Dioxide 28 mmol/L (22-32); Chloride 100 mmol/L (98-107); Estimated Glomerular Filt Rate > 60 mL/min (>60); Glucose 119 mg/dL (70-99); HEMOLYSIS < 15 (0-50); Potassium 3.7 mmol/L (3.4-5.1); Sodium 131 mmol/L (137-145)
[2025-09-17 09:00] VITALS: BP 104/72; PULSE 75; RESP 14; TEMP 36.6; O2SAT 97
[2025-09-17] MEDS: ENOXAPARIN 40 MG/0.4 ML SYRINGE SUBCUT (09:57)
[2025-09-17] MEDS: SPIRONOLACTONE 25 MG TABLET PO (09:59)
[2025-09-17] MEDS: FOLIC ACID 1 MG TABLET PO (09:59)
[2025-09-17] MEDS: NYSTATIN CREAM 30 GM 1 APPLIC TOP ×3 (09:59→21:39)
[2025-09-17] MEDS: FUROSEMIDE 40 MG TABLET PO (09:59)
[2025-09-17] MEDS: MULTIVITAMIN 1 TABLET 1 TAB PO (09:59)
[2025-09-17] MEDS: MAGNESIUM OXIDE 400 MG TABLET PO (09:59)
[2025-09-17] MEDS: NICOTINE 14 PATCH 14 MG TOP (10:03)
[2025-09-17] MEDS: SODIUM CHLORIDE 0.9% FLUSH 10 ML IV ×2 (10:04→21:40)
--- NOTE | 2025-09-17 11:15 | PT-IP ANOTE ---
Pt refused PT stating family was coming anytime and he didn't want to be out of bed with family in room
--- NOTE | 2025-09-17 11:48 | P.PN_ITS ---
Subjective Subjective Date Patient Seen: 09/17/25 Time Patient Seen: 08:20 Interval history: 09/01: Patient is less somnolent today but does not make meaningful verbal responses bilirubin has dropped to 7.8 from 10 pneumonia has dropped from 72-62 potassium was 2.9 09/02: Today patient is less somnolent but still quite confused and somnolent patient appears to have dysphagia bilirubin has de-escalated to 6.5 potassium 3.1 09/03: More alert with improved labs. Weaned phenobarbital. Bili 6.5, NH3 42. 09/05: More alert and most recent Bilirubin is 7.0. AST 97, alk phos 239. Patient and his mother who is POA agreed that other family members could be briefed. Daughter is nurse and granddaughter is a physician. Discussed with his son today. Appropriate for hospice and will need correction care. Tinea pedis rash to be treated. Minimal swallowing noted by speech therapy. Self feeding very limited noted on OT eval. 09/06: Much more alert and verbally argumentative today. He is demanding to go home but is not capable of understanding his physical limitations. Discussed with son who is present. He is not dropping the food down his shirt today but is still unable to swallow so a modified barium swallow will be done. Ammonia level yesterday was less than 9. 09/07: Wax and waning mental status, not oriented to place or year. Required some Ativan for impulsive behavior. 09/08: He was more alert and interactive. He is oriented to hospital and year today. 09/09: Discharge has been delayed due to his insurance and facility reluctance to accept him due to the psychosocial conditions. He has been able to stand up in the room and walk a little bit with physical therapy. He complains of not being fed on his preferred scheduled. He appears very sleepy. His last labs from 09/04 are reviewed. 09/10: Overnight he reportedly appear to aspirate on lactulose so has been NPO today. We will ask speech therapy to see him again. Began on Lasix yesterday and appears less edematous today. Remains confused and jaundiced. Pizarro catheter has very bilious appearing urine. Potassium 2.9 today, after starting Lasix yesterday, so is receiving supplementation. Discharge has been delayed due to his insurance and facility reluctance to accept him due to the psychosocial conditions. 09/11: White blood count 9.3, hemoglobin 10.4, platelets 109. Sodium 133 potassium 3.2. He will receive additional 40 mEq of IV potassium today. Total bilirubin 6.0. AST 74. He is sleeping/sedated from his Librium during my visit. He continues on dysphagia diet per speech therapy re-evaluation yesterday. The caution was to not give him anything to eat or drink if he is sedated. Hopefully stopping the Librium will help that. 09/12: The patient is much more interactive and alert today (after stopping the Librium). He is asking for a shower. He is talking about his dog at home. Potassium is 2.9. Now that he is swallowing well that will be replaced with oral potassium. He will also be started on spironolactone and the Lasix dose will be decreased. 09/13: Edema seems to have worsened with the decrease of Lasix dose. The potassium continues to run low at 3.1. He is receiving an additional 80 mEq p.o. today. The magnesium level is 1.5 so that will be addressed. The hemoglobin has dropped from 10.4 down to 9.5. The platelets have dropped to 99. I called and spoke with his mother about the lack of discharge options as multiple correction facilities have declined. She is coming over from out of state and is going to ask for assistance finding caregivers for him at his home. 09/14: Per further discussions with social service/buyer planner and his mother we are pivoting to a target of adult family home discharge. Today he is alert and conversant without significant agitation. He is looking forward to a shower. The hemoglobin continues to drop slowly, now down to 9.0. Check B12, folate and iron. His edema seems to have increased so the Lasix dose will be increased back up to 40 mg. The flaking rash on his feet has returned so we will change the topical treatment to nystatin. We will also remove the Pizarro catheter today. His urine continues to be very bilious 09/15: The foot rash does not appear to be responding to tinea treatment so we will treat for eczema with triamcinolone cream. He is feeding himself breakfast today. His mother is working on evaluating several potential adult family homes for him to discharge there soon. He says he is walking with a walker but PT assures me that with a walker he is only able to stand and move slightly sideways so far. His edema appears to be worse. That is likely related to increased oral fluid and dietary salt intake. He is already on Lasix and spironolactone. The hemoglobin has risen to 9.6 today. The sodium is 131 with a potassium of 3.8. The iron level is 106 with a B12 greater than 1000 and a folate of 5.5. 09/16: Hemoglobin drifted back down to 9.0 today. Potassium is 3.4. He continues with significant peripheral edema. He is asleep during my visit today. His mother is looking at/touring adult family homes so discharge plans are steadily coming together. 09/17: He has no complaints. He is alert, appropriate and states no pain or discomfort. He has been up walking with physical therapy. He states that he is ?done with alcohol?. He plans to go to an adult family home in [place] pending final arrangements. He had a 2 L diuresis yesterday and states edema has improved. NAD, alert, deeply jaundiced, scleral icterus. Lungs are clear, normal rate and effort. Heart is regular, no murmur gallop or rub. Abdomen is soft, less distended. Extremities 1-2+ bilateral pitting edema Flaking rash on both feet recurring Pizarro has been removed A/P: 1. Acute alcohol withdrawal, resolved. 2. Liver failure anasarca, active. Improved. 3. Alcohol use disorder, active. 4. Dysphagia 5. Hepatic Encephalopathy, improving. 6. Tinea Pedis/dermatitis 7. Conjunctivitis 8. He has severe weakness and debilitation, is a 2 person assist to stand and transfer. 9. Severe Protein Calorie Malnutrition 10. Hypokalemia/hypomagnesemia 11. Macrocytic Anemia PLAN: -Adult family home when arranged by case management. His mother is back here from [place], in the [facility] and is helping with that. -He is 65 years old and does not have Medicare so his primary insurance is Medicaid which limits SNF options. -He is not stable enough to be discharged home without 24 hour caregivers. [facility] would be a good option for him. -he is hospice appropriate but has been reluctant. -change from clotrimazole to nystatin for his tinea. Added triamcinolone cream on 09/15. -potassium and magnesium supplementation -continue dysphagia diet, per speech therapy re-evaluation on 09/10. -stopped routine Librium -continue spironolactone and increased Lasix. DISPO: TBD likely adult family home. Exam Vital Signs (past 8 hours): - 09/17/25 08:45 09/17/25 09:00 Temperature 97.8 F Pulse Rate 75 Respiratory Rate 14 Blood Pressure 104/72 Pulse Oximetry 97 Oxygen Delivery Method Room Air Oxygen Flow Rate 0 Fraction of Inspired Oxygen 28 SaO2/FiO2 Ratio 335 Oxygen Delivery Method Room Air Oxygen Flow Rate 0 Objective Labs 09/17/25 04:15 09/17/25 04:15 Labs: Laboratory Results - last 24 hr 09/17/25 04:15 WBC 10.1 RBC 2.27 L Hgb 8.5 L Hct 24.9 L MCV 109.9 H MCH 37.7 H MCHC 34.3 RDW 14.7 Plt Count 112 L Neut % (Auto) 70.0 Lymph % (Auto) 19.2 L Mchenry % (Auto) 9.6 Eos % (Auto) 0.4 L Baso % (Auto) 0.8 Neut # (Auto) 7100 H Lymph # (Auto) 1900 Mchenry # (Auto) 1000 H Eos # (Auto) 0 Baso # (Auto) 100 Sodium 131 L Potassium 3.7 Chloride 100 Carbon Dioxide 28 BUN 5 L Creatinine 0.47 L Estimated GFR > 60 BUN/Creatinine Ratio 10.6 Glucose 119 H Calcium 7.1 L PFSH Medical History Tobacco dependence Alcohol use disorder, moderate, dependence Fentanyl use disorder, mild, abuse Seizures Amputation finger Onychomycosis Chronic pancreatitis Alcoholic pancreatitis Fracture of finger, distal phalanx, open Fracture of finger, middle phalanx, open Alcohol abuse Back pain Surgical History History of surgical amputation of finger Family History Mother Osteoarthritis Father Alcohol abuse Medical history unknown Social History household members: none Smoking Status: Current every day smoker alcohol intake: current substance use type: marijuana Assessment & Plan Time-Based Coding :: [TOTAL MINUTES] spent with patient and on the chart (including review of chart, obtaining history, exam, reviewing outside data, placing orders, documenting exam and treatment plan, and counseling patient) on [DATE]. Quality VTE Deep Vein Thrombosis/Pulmonary Embolism Present on Admission: No IH PROFEE Eyeglass Assembler Document charge(s): No
--- NOTE | 2025-09-17 13:10 | CM.DPC ---
Family brought in bank statements to be added to the Medicaid application. See bundle in DCP Office. Per Mother of and sister of patient, Woody from [facility] will be conducting a bedside eval tomorrow 09/18/2025. Time TBD.
[2025-09-17 16:45] VITALS: BP 108/66; PULSE 66; RESP 26; TEMP 36.8; O2SAT 93
[2025-09-17] MEDS: LACTULOSE 20 GM/30 ML SOLUTION PO ×2 (17:20→21:37)
[2025-09-17 20:26] VITALS: BP 147/91; PULSE 71; RESP 18; TEMP 36.9; O2SAT 99
[2025-09-18] MEDS: GENTAMICIN 0.3% OPHTH 5 ML 1 DROPS EYE-BOTH ×4 (06:02→18:48)
--- NOTE | 2025-09-18 08:05 | PT-IP ANOTE ---
Pt refused treatment this AM, will continue to follow as able.
[2025-09-18 08:27] VITALS: BP 86/54; PULSE 80; RESP 26; TEMP 37.2; O2SAT 92
[2025-09-18] MEDS: MAGNESIUM OXIDE 400 MG TABLET PO (10:02)
[2025-09-18] MEDS: FUROSEMIDE 40 MG TABLET PO (10:02)
[2025-09-18] MEDS: FOLIC ACID 1 MG TABLET PO (10:03)
[2025-09-18] MEDS: LACTULOSE 20 GM/30 ML SOLUTION PO ×3 (10:03→20:59)
[2025-09-18] MEDS: MULTIVITAMIN 1 TABLET 1 TAB PO (10:03)
[2025-09-18] MEDS: SPIRONOLACTONE 25 MG TABLET PO (10:03)
[2025-09-18] MEDS: NICOTINE 14 PATCH 14 MG TOP (10:04)
[2025-09-18] MEDS: ENOXAPARIN 40 MG/0.4 ML SYRINGE SUBCUT (10:08)
[2025-09-18] MEDS: SODIUM CHLORIDE 0.9% FLUSH 10 ML IV ×2 (10:09→21:00)
[2025-09-18] MEDS: NYSTATIN CREAM 30 GM 1 APPLIC TOP ×3 (10:09→20:59)
--- NOTE | 2025-09-18 10:44 | PM.PN.IH.1 ---
Subjective Subjective Date Patient Seen: 09/18/25 Time Patient Seen: 07:47 Interval history: 09/01: Patient is less somnolent today but does not make meaningful verbal responses bilirubin has dropped to 7.8 from 10 pneumonia has dropped from 72-62 potassium was 2.9 09/02: Today patient is less somnolent but still quite confused and somnolent patient appears to have dysphagia bilirubin has de-escalated to 6.5 potassium 3.1 09/03: More alert with improved labs. Weaned phenobarbital. Bili 6.5, NH3 42. 09/05: More alert and most recent Bilirubin is 7.0. AST 97, alk phos 239. Patient and his mother who is POA agreed that other family members could be briefed. Daughter is nurse and granddaughter is a physician. Discussed with his son today. Appropriate for hospice and will need usp care. Tinea pedis rash to be treated. Minimal swallowing noted by speech therapy. Self feeding very limited noted on OT eval. 09/06: Much more alert and verbally argumentative today. He is demanding to go home but is not capable of understanding his physical limitations. Discussed with son who is present. He is not dropping the food down his shirt today but is still unable to swallow so a modified barium swallow will be done. Ammonia level yesterday was less than 9. 09/07: Wax and waning mental status, not oriented to place or year. Required some Ativan for impulsive behavior. 09/08: He was more alert and interactive. He is oriented to hospital and year today. 09/09: Discharge has been delayed due to his insurance and facility reluctance to accept him due to the psychosocial conditions. He has been able to stand up in the room and walk a little bit with physical therapy. He complains of not being fed on his preferred scheduled. He appears very sleepy. His last labs from 09/04 are reviewed. 09/10: Overnight he reportedly appear to aspirate on lactulose so has been NPO today. We will ask speech therapy to see him again. Began on Lasix yesterday and appears less edematous today. Remains confused and jaundiced. Pizarro catheter has very bilious appearing urine. Potassium 2.9 today, after starting Lasix yesterday, so is receiving supplementation. Discharge has been delayed due to his insurance and facility reluctance to accept him due to the psychosocial conditions. 09/11: White blood count 9.3, hemoglobin 10.4, platelets 109. Sodium 133 potassium 3.2. He will receive additional 40 mEq of IV potassium today. Total bilirubin 6.0. AST 74. He is sleeping/sedated from his Librium during my visit. He continues on dysphagia diet per speech therapy re-evaluation yesterday. The caution was to not give him anything to eat or drink if he is sedated. Hopefully stopping the Librium will help that. 09/12: The patient is much more interactive and alert today (after stopping the Librium). He is asking for a shower. He is talking about his dog at home. Potassium is 2.9. Now that he is swallowing well that will be replaced with oral potassium. He will also be started on spironolactone and the Lasix dose will be decreased. 09/13: Edema seems to have worsened with the decrease of Lasix dose. The potassium continues to run low at 3.1. He is receiving an additional 80 mEq p.o. today. The magnesium level is 1.5 so that will be addressed. The hemoglobin has dropped from 10.4 down to 9.5. The platelets have dropped to 99. I called and spoke with his mother about the lack of discharge options as multiple usp facilities have declined. She is coming over from out of state and is going to ask for assistance finding caregivers for him at his home. 09/14: Per further discussions with social service/raw material planner and his mother we are pivoting to a target of adult family home discharge. Today he is alert and conversant without significant agitation. He is looking forward to a shower. The hemoglobin continues to drop slowly, now down to 9.0. Check B12, folate and iron. His edema seems to have increased so the Lasix dose will be increased back up to 40 mg. The flaking rash on his feet has returned so we will change the topical treatment to nystatin. We will also remove the Pizarro catheter today. His urine continues to be very bilious 09/15: The foot rash does not appear to be responding to tinea treatment so we will treat for eczema with triamcinolone cream. He is feeding himself breakfast today. His mother is working on evaluating several potential adult family homes for him to discharge there soon. He says he is walking with a walker but PT assures me that with a walker he is only able to stand and move slightly sideways so far. His edema appears to be worse. That is likely related to increased oral fluid and dietary salt intake. He is already on Lasix and spironolactone. The hemoglobin has risen to 9.6 today. The sodium is 131 with a potassium of 3.8. The iron level is 106 with a B12 greater than 1000 and a folate of 5.5. 09/16: Hemoglobin drifted back down to 9.0 today. Potassium is 3.4. He continues with significant peripheral edema. He is asleep during my visit today. His mother is looking at/touring adult family homes so discharge plans are steadily coming together. 09/17: He has no complaints. He is alert, appropriate and states no pain or discomfort. He has been up walking with physical therapy. He states that he is ?done with alcohol?. He plans to go to an adult family home in [place] pending final arrangements. He had a 2 L diuresis yesterday and states edema has improved. 09/18: No new events overnight. He continues to be a 2 person max assist. It is clarify that he was not up and walking yesterday, that he tends to confabulate recent history. Anticipate discharge to an adult family home in [place] pending final arrangements tomorrow. NAD, alert, deeply jaundiced, scleral icterus. Lungs are clear, normal rate and effort. Heart is regular, no murmur gallop or rub. Abdomen is soft, less distended. Extremities 1-2+ bilateral pitting edema Flaking rash on both feet recurring Pizarro has been removed A/P: 1. Acute alcohol withdrawal, resolved. 2. Liver failure anasarca, active. Improved. 3. Alcohol use disorder, active. 4. Dysphagia 5. Hepatic Encephalopathy, improving. 6. Tinea Pedis/dermatitis 7. Conjunctivitis 8. He has severe weakness and debilitation, is a 2 person assist to stand and transfer. 9. Severe Protein Calorie Malnutrition 10. Hypokalemia/hypomagnesemia 11. Macrocytic Anemia PLAN: -Adult family home when arranged by case management. His mother is back here from [place], in [facility] and is helping with that. -He is 65 years old and does not have Medicare so his primary insurance is Medicaid which limits SNF options. -He is not stable enough to be discharged home without 24 hour caregivers. [facility] would be a good option for him. -he is hospice appropriate but has been reluctant. -changed from clotrimazole to nystatin for his tinea. Added triamcinolone cream on 09/15. -potassium and magnesium supplementation -continue dysphagia diet, per speech therapy re-evaluation on 09/10. -stopped routine Librium -continue spironolactone and increased Lasix. DISPO: TBD likely adult family home. Exam Vital Signs (past 8 hours): - 09/18/25 08:27 09/18/25 09:00 Temperature 98.9 F Pulse Rate 80 Respiratory Rate 26 H Blood Pressure 86/54 L Pulse Oximetry 92 Oxygen Delivery Method Room Air Oxygen Flow Rate 0 Fraction of Inspired Oxygen 28 SaO2/FiO2 Ratio 335 Oxygen Delivery Method Room Air Oxygen Flow Rate 0 Objective Labs 09/17/25 04:15 09/17/25 04:15 PFSH Medical History Tobacco dependence Alcohol use disorder, moderate, dependence Fentanyl use disorder, mild, abuse Seizures Amputation finger Onychomycosis Chronic pancreatitis Alcoholic pancreatitis Fracture of finger, distal phalanx, open Fracture of finger, middle phalanx, open Alcohol abuse Back pain Surgical History History of surgical amputation of finger Family History Mother Osteoarthritis Father Alcohol abuse Medical history unknown Social History household members: none Smoking Status: Current every day smoker alcohol intake: current substance use type: marijuana Quality VTE Deep Vein Thrombosis/Pulmonary Embolism Present on Admission: No IH PROFEE Furniture Repair Technician Document charge(s): No Charge Codes Subsequent inpatient/observation care: [id number]
--- NOTE | 2025-09-18 14:24 | PC.NURSE ---
Dayshift note: Up OOB via Ainsley to chair. Minerva care performed. Q2 turns, repositioning, using bridge method while in bed with extra caution to bony prominences. Antonino from [facility] at bedside.
--- NOTE | 2025-09-18 14:43 | CM.DPNOTE ---
DCP note PROSPECTING DRILLER HELPER reviewed EMR Woody from [facility] here to assess pt at 2pm. PROSPECTING DRILLER HELPER provided more clinicals per Woody request. woody reports that some conditions of accepting him are that pt not drink or smoke. per RN, pt has verbalized wanting to quit drinking and has been satisfied with nicotine patch, has not asked about smoking P: DC to [facility] pending accepting facility. will continue to follow closely for DCP coordination STEFFEN Slade
--- NOTE | 2025-09-18 15:09 | PT.IPTN ---
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 coma (08/31/25) Physical Therapy Treatment Note M2 PT-IP Current Condition Start: 09/03/25 12:04 Freq: NEEDED Status: Active Protocol: Document 09/13/25 12:06 LRN (Rec: 09/13/25 12:34 LRN Laptop) Physical Therapy Current Condition Current Condition Evaluation Date 09/03/25 Treatment Diagnosis weakness Onset Date 08/31/25 M3 PT-IP Subjective Start: 09/03/25 12:04 Freq: NEEDED Status: Active Protocol: Document 09/18/25 15:13 NW (Rec: 09/18/25 15:20 NW [id number]) Subjective Physical Therapy Visit Type Type Treatment Note Visit Start Time 14:48 Visit Stop Time 15:09 Number of BILINGUAL SPEECH LANGUAGE PATHOLOGIST Visits 0 Physical Therapy Visit Comments Patient Comments Pt is found visiting with family after adult family home assessment. Pt states he wants to get back into bed. Patient Goals To walk. M4 PT-IP Mobility and Gait Start: 09/03/25 12:04 Freq: NEEDED Status: Active Protocol: Document 09/18/25 15:13 NW (Rec: 09/18/25 15:20 NW [id number]) PT-Bed Mobility Assessment Sit to Supine Sit to Supine Moderate Assistance,2 Person Assistance Scooting Scooting Up and Down Minimal Assistance in Bed PT-Transfer Assessment Sit to and From Stand Sit to and from Minimal Assistance,1 Person Assistance Stand Equipment Transfer Assistive Gait Belt,Front Wheeled Walker Device Transfers Transfer Destination Bed Transfer Technique Stand Pivot Transfer Ability Level of Assist Moderate Assistance,2 Person Assistance,Use of Upper Extremities Comments Mobility Comments Pt fatigues quickly with bilateral UE shaking with increased standing time. MaxA to weight shift with fatigue to allow for LE placement/steps. Poor eccentric control with PT controlled decent onto edge of bed. Utilizes momentum to achieve stance with anterior weight shift. PT-Balance Assessment Sitting Balance and Reactions Static Sitting Good Balance Ability Dynamic Sitting Poor Balance Ability Standing Balance and Reactions Static Standing Poor Balance Ability Dynamic Standing Poor Balance Ability Device Used FWW Comments Other Balance Tests/ standing tolerance < 30 seconds Deviations/Treatment : M5 PT-IP Objective Assessments Start: 09/03/25 12:04 Freq: NEEDED Status: Active Protocol: Document 09/13/25 12:06 LRN (Rec: 09/13/25 12:34 LRN Laptop) Orientation Orientation/Cognition Orientation Name Comments Continue to re-orientate M6 PT-IP Treatment Start: 09/03/25 12:04 Freq: NEEDED Status: Active Protocol: Document 09/18/25 15:13 NW (Rec: 09/18/25 15:20 NW [id number]) Physical Therapy Treatment Other Treatments Other Treatment Education on importance of increasing time out of bed Performed and to participate with therapy. M7 PT-IP Assessment and Plan Start: 09/03/25 12:04 Freq: NEEDED Status: Active Protocol: Document 09/18/25 15:13 NW (Rec: 09/18/25 15:20 NW [id number]) PT Summary Assessment and Plan Potential Rehabilitation Fair Potential Status of Condition Evolving at Evaluation Summary Impairments Strength,Balance,Cognition,Bed Mobility,Transfers,Gait, Activity Tolerance Progress Towards Slow Progress due to Activity Tolerance Goals Assessment Summary Pt declines and requires increased assistance after not participating with therapy for two days. Pt requires Liliana to achieve stance with heavy anterior weight shift and once standing maxA after greater than 30 seconds to weight shift and perform a stand pivot transfer. Pt is fatigued to the point once seated edge of bed posteriorly leans and requires VC to sit up. Pt is set to discharge to adult family home, but at this time the facility does not have staff for 21/04 assistance. Continued PT should focus on improving transfers. Goals Bed Mobility Goal Independent Transfer Goal Minimal Assistance,Front Wheeled Walker Gait Goal Contact Guard Assistance,Front Wheel Walker Gait Distance 5 Days to Meet Goals 10 Treatment Plan Physical Therapy Bed Mobility Training,Transfer Training,Gait Training, Treatment Plan Therapeutic Exercise,Balance Retraining,Discharge Planning Other FWW for transfers Recommendations and Next Treatment Focus Precautions Other Precautions falls risk Recommendations To Nursing Amount of Assist Mechanical Lift Needed Discharge Recommendations PT Discharge SNF Rehab Recommendations Other Discharge INTERMEDIATE with assistance Recommendations - PT assist 1
[2025-09-18 17:17] VITALS: BP 126/70; PULSE 87; RESP 17; TEMP 37.3; O2SAT 98
[2025-09-18] MEDS: ONDANSETRON 4 MG ODT SL (18:48)
[2025-09-18 19:00] VITALS: BP 100/62; PULSE 71; RESP 20; TEMP 37.6; O2SAT 90
[2025-09-18 20:59] VITALS: BP 94/61
[2025-09-19] VITALS (13 sets, daily range): BP systolic 90–101; BP diastolic 62–69; PULSE 62–121; RESP 20–40; TEMP 36.9–39.5; O2SAT 92–95
[2025-09-19] MEDS: ACETAMINOPHEN 325 MG TABLET 650 MG PO ×2 (04:42→06:04)
--- NOTE | 2025-09-19 05:27 | P.PN_ITS ---
Subjective Subjective Interval history: A&P Sepsis, source unknown Since 399 today, the patient has been having fevers ranging from 120.2 to 103.1. He meets SIRS criteria based on tachycardia to 120, tachypnea to 40, hypoxia now requiring 3 L, and fever. This is a significant change in his condition from yesterday. Etiology of fever and SIRS is unclear at this time. Exam is nonfocal. Abdomen is benign and not consistent with significant ascites. Review of prior imaging shows only minimal ascites. There is not enough to safely perform paracentesis. * CBC, CMP, ammonia, blood cultures stat * Urinalysis and culture if indicated * Chest x-ray * Tylenol as needed fever * IV fluids * Initiate ceftriaxone which will empirically cover SBP, urine, and CAP. Will add azithromycin if chest x-ray is consistent with bacterial pneumonia. Liver disease d/t etoh +/- hepatic steatosis Acute alcohol withdrawal, resolved Hepatic encephalopathy, resolved Thrombocytopenia Imaging shows diffuse steatosis but not cirrhosis. Meld-Na score is 21 indicative of a 19% three month mortality. * Continue lactulose * Continue spironolactone and Lasix * Continue lorazepam as needed * Initiate labetalol for portal hypertension to decrease the risk of bleeding. 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 * Monitor platelets in the setting of DVT prophylaxis Severe protein calorie malnutrition Debilitation/weakness * Encourage p.o. intake with adequate protein * Continue dysphagia diet per speech therapy * Continue PT and OT Pseudohyponatremia Sodium was as low as 131 earlier in the hospital stay. However corrected sodium based on an albumin of 2.2 is within the normal range. * CTM prn Hypokalemia, resolved Hypomagnesemia Sodium was as low as 3.1 and magnesium 1.5 at presentation. Hypokalemia has resolved. Magnesium has not yet been rechecked. * Check magnesium today * Replete as needed Dermatitis, bilateral feet Patient did not respond to treatment for tinea pedis. On 09/15, clotrimazole change to nystatin and triamcinolone cream added. * Continue current management Code Status: Currently limited code, intubation only of airway protection is needed, no CPR, no cardioversion Diet: Dysphagia Lines/Tubes: PIV, pure wick DVT Prophylaxis: Enoxaparin 40 mg subQ daily Discharge Planning: Patient is not medically ready for discharge today given new onset fevers and sepsis. He is too weak for discharge to home and will need a higher level of care. Anticipate discharge in 2-3 days. Subjective: The patient is without complaint at this time. He denies headache, chest pain, shortness on breath, cough, abdominal pain, nausea/vomiting. He reports intermittent dysuria but not recently. Objective Vitals reviewed, 102.6, 108, 101/62, 34, 92% on 3 L Asleep, awakes to voice, oriented to person and place but not time, ill- appearing NCAT, OP dry, neck supple RRR, nl S1 and S2, no murmurs Bibasilar rales, coarse breath sounds Soft, NT, ND, +BS, tympanitic to percussion Warm with 1+ pedal edema Neuro grossly nonfocal, globally weak Pleasant, cooperative Labs: Labs pending at this time. Imaging: No new imaging. Time spent: 75 minutes spent with patient and on the chart (including review of chart, obtaining history, exam, reviewing outside data, placing orders, documenting exam and treatment plan, and counseling patient). Exam Vital Signs (past 8 hours): - 09/19/25 04:01 09/19/25 04:42 Temperature 102.2 F H 102.2 F H Fraction of Inspired Oxygen 28 SaO2/FiO2 Ratio 335 Oxygen Delivery Method Room Air Oxygen Flow Rate 0 Objective Labs 09/17/25 04:15 09/17/25 04:15 [facility] Medical History Tobacco dependence Alcohol use disorder, moderate, dependence Fentanyl use disorder, mild, abuse Seizures Amputation finger Onychomycosis Chronic pancreatitis Alcoholic pancreatitis Fracture of finger, distal phalanx, open Fracture of finger, middle phalanx, open Alcohol abuse Back pain Surgical History History of surgical amputation of finger Family History Mother Osteoarthritis Father Alcohol abuse Medical history unknown Social History household members: none Smoking Status: Current every day smoker alcohol intake: current substance use type: marijuana Assessment & Plan Time-Based Coding :: [TOTAL MINUTES] spent with patient and on the chart (including review of chart, obtaining history, exam, reviewing outside data, placing orders, documenting exam and treatment plan, and counseling patient) on [DATE]. Quality VTE Deep Vein Thrombosis/Pulmonary Embolism Present on Admission: No
--- NOTE | 2025-09-19 07:21 | PC.NURSE ---
Patient found on rounds at 0400 to be shivering. Temp 102.2. Contacted MD and tylenol 650 MG administered PO. Recheck temp 103.1. Contacted MD and additional dose of tylenol 650 mg ordered and administered. Recheck temp 102.6. Patient denied pain and nausea but states they are feeling unwell. Lethargic. Became SOB and desatted to low 80s. O2 5 lpm started. Respiratory paged. O2 sats up to 98% percent and able to drop down to 3 lpm NC. RR in 30s. Report given to oncoming nurse. MD in to assess.
--- NOTE | 2025-09-19 07:31 | DI.RAD.S_ITS ---
PROCEDURE: XR CHEST 1V INDICATIONS: new onset sepsis TECHNIQUE: One view of the chest was acquired. COMPARISON: [facility], CT, CT ABDOMEN PELVIS W CON, 08/31/2025, 12:24. [facility], CR, XR CHEST 1V, 09/09/2025, 21:16. [facility], CR, XR CHEST 1V, 09/02/2025, 16:34. FINDINGS: Surgical changes and devices: None. Lungs and pleura: Mild streaky opacities bilaterally. Less conspicuous. No significant pleural effusions or pneumothorax. Mediastinum: Mediastinal contours appear unchanged. Heart size is normal. Bones and chest wall: No suspicious bony lesions. Overlying soft tissues appear unremarkable. IMPRESSION: Mild streaky opacities bilaterally. Favor atelectasis or scarring over pneumonia. Dictated by: Yadiel Hou M.D. on 09/19/2025 at 8:07 Approved by: Yadiel Hou M.D. on 09/19/2025 at 8:08
[2025-09-19] MEDS: cefTRIAXone 2,000 MG in SODIUM CHLORIDE 0.9% 100 ML 200 MG IV (07:44)
[2025-09-19 08:15] LABS: Add Manual Diff / Slide Review NO; Hematocrit 30.4 % (41-53); Hemoglobin 10.4 g/dL (13.5-17.5); Lymphocytes Absolute Auto 800 /uL (1100-4500); Mean Corpuscular HGB Conc 34.1 % (30-36); Mean Corpuscular Hemoglobin 37.2 PG (26-34); Mean Corpuscular Volume 109.2 fL (80-100); Platelet Count 120 X10^3/uL (150-400)
[2025-09-19 08:21] LABS: Alanine Aminotransferase 20 IU/L (<50); Albumin 2.6 g/dL (3.5-5.0); Albumin Globulin Ratio 0.6 (1.0-2.8); Alkaline Phosphatase 202 U/L (38-126); Ammonia (NH3) 32 umol/L (9-30); Blood Urea Nitrogen 8 mg/dL (9-20); Calcium 7.2 mg/dL (8.4-10.2); Carbon Dioxide 25 mmol/L (22-32); Chloride 98 mmol/L (98-107); Estimated Glomerular Filt Rate > 60 mL/min (>60); Globulin 4.1 g/dL (1.7-4.1); Glucose 133 mg/dL (70-99); HEMOLYSIS < 15 (0-50); Lactate (Lactic Acid) 1.9 mmol/L (0.7-2.1); Magnesium 1.5 mg/dL (1.6-2.3); Potassium 3.8 mmol/L (3.4-5.1); Sodium 129 mmol/L (137-145); Total Protein 6.7 g/dL (6.3-8.2)
[2025-09-19] MEDS: FOLIC ACID 1 MG TABLET PO (10:33)
[2025-09-19] MEDS: LACTULOSE 20 GM/30 ML SOLUTION PO ×2 (10:33→16:45)
[2025-09-19] MEDS: MULTIVITAMIN 1 TABLET 1 TAB PO (10:33)
[2025-09-19] MEDS: MAGNESIUM OXIDE 400 MG TABLET PO (10:33)
[2025-09-19] MEDS: SPIRONOLACTONE 25 MG TABLET PO (10:34)
[2025-09-19] MEDS: PROPRANOLOL 10 MG TABLET PO ×2 (10:34→21:29)
[2025-09-19] MEDS: FUROSEMIDE 40 MG TABLET PO (10:34)
[2025-09-19] MEDS: ENOXAPARIN 40 MG/0.4 ML SYRINGE SUBCUT (10:35)
[2025-09-19] MEDS: SODIUM CHLORIDE 0.9% FLUSH 10 ML IV ×2 (10:35→21:30)
[2025-09-19] MEDS: NICOTINE 14 PATCH 14 MG TOP (10:37)
[2025-09-19] MEDS: NYSTATIN CREAM 30 GM 1 APPLIC TOP ×2 (10:38→16:45)
[2025-09-19] MEDS: MAGNESIUM CHLORIDE 64 MG TABLET 128 MG PO (10:50)
--- NOTE | 2025-09-19 11:26 | CM.DPC ---
DCP Adult Family Home Planning Cont: Per MD, pt started having a fever overnight and possible pneumonia and was placed on 3LO2 and being treated currently. VIRIDIANA called Woody at [facility] ([phone]) and confirmed he completed bedside assessment yesterday 09/18/25 and he confirms he can accept pt but not until a separate RN Delegate Assessment is completed (which has a fee that would be directed to family to pay) Woody is sending in the pwk to get pt set up with their mail order Pharmacy [facility] and requests closer to discharge having MD send the meds needed at d/c to [facility]. Inquired how quickly pt can move into their facility and Woody states due to [place] this week anticipates maybe 09/24/25. Woody provided the RN Delegates that he has worked with for the curriculum and assessment coordinator and states either family or SW to schedule this. VIRIDIANA met bedside with pt, POA mother Carmen, and sister Lorna as they flew in from [place] and they confirm they were bedside yesterday when Woody completed his bedside assessment and aware of need for curriculum and assessment coordinator and fee to be paid and they are agreeable and confirm preference is pt move into [facility]. Mother and sister fly back to [place] very early in the AM tomorrow 09/20 but will be available by phone for ongoing coordination of care. They confirm that pt's son can likely provide transport for pt to [facility] at d/c. VIRIDIANA re-faxed pt's Medicaid LTC application with the included POA and bank statements to [facility] and refaxed the Expedited [facility] form to a different fax number and sent an email to [facility] Berta to attempt to move along the process for getting pt approved for Medicaid for coverage at [facility]. Family confirms they will pay privately for pt at [facility] until Medicaid is approved. VIRIDIANA called the 3 provided RN Delegates for assessment and only received a call back from Lulu Mena [phone] and discussed pt situation and she confirms she has completed assessments for [facility] before and will try to expedite the assessment in the next couple days. She states that since Woody completed bedside assessment with pt and family she likely can complete most of the assessment by reviewing clinicals and talking to pt's POA. VIRIDIANA secure emailed pt's clinicals to Lulu at to review. Family had requested assistance with getting pt established with PCP at [facility] and VIRIDIANA sent msg to the TCM group and pt already established with Dr. Rocío Roberts and alerted them that pt likely will need f/u appointment after discharge in a few days. Plan: VIRIDIANA to follow for Lulu RN to complete her nursing assessment and provide to Woody at [facility] and pt's meds to be sent to [facility] mail order pharmacy prior to discharge for plan of hopeful move into [facility] by the end of this week. STEFFEN Preciado
[2025-09-19] MEDS: GENTAMICIN 0.3% OPHTH 5 ML 1 DROPS EYE-BOTH ×3 (14:30→21:30)
--- NOTE | 2025-09-19 15:26 | PT.IPTN ---
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 coma (08/31/25) Physical Therapy Treatment Note M2 PT-IP Current Condition Start: 09/03/25 12:04 Freq: NEEDED Status: Active Protocol: Document 09/13/25 12:06 LRN (Rec: 09/13/25 12:34 LRN Laptop) Physical Therapy Current Condition Current Condition Evaluation Date 09/03/25 Treatment Diagnosis weakness Onset Date 08/31/25 M3 PT-IP Subjective Start: 09/03/25 12:04 Freq: NEEDED Status: Active Protocol: Document 09/19/25 16:03 NW (Rec: 09/19/25 16:13 NW [id number]) Subjective Physical Therapy Visit Type Type Treatment Note Visit Start Time 14:55 Visit Stop Time 15:26 Number of GEOLOGICAL SAMPLE TESTER Visits 0 Physical Therapy Visit Comments Patient Comments Pt states he had a bad day yesterday, but is still agreeable to treatment. Patient Goals To walk. M4 PT-IP Mobility and Gait Start: 09/03/25 12:04 Freq: NEEDED Status: Active Protocol: Document 09/19/25 16:03 NW (Rec: 09/19/25 16:13 NW [id number]) PT-Bed Mobility Assessment Supine to Sit Supine to Sit Minimal Assistance,Head of Bed Elevated,Bedrails Sit to Supine Sit to Supine Minimal Assistance Scooting Scooting Up and Down Standby Assistance in Bed PT-Transfer Assessment Sit to and From Stand Sit to and from Minimal Assistance,1 Person Assistance,Use of Upper Stand Extremities Comments Mobility Comments Pt is Liliana to perform STS from edge of bed with FWW with heavy posterior lean upon stance with bilateral calf contact of edge of bed. To maintain stance > 10 seconds pt is modA with shakiness in bilateral UE. Pt is able to perform side stepping with posterior support and maxA for weight shift to allow for LE clearance towards L 2-3 ft. PT-Balance Assessment Sitting Balance and Reactions Static Sitting Good Balance Ability Dynamic Sitting Good Balance Ability Standing Balance and Reactions Static Standing Poor Balance Ability Dynamic Standing Poor Balance Ability Device Used FWW Comments Other Balance Tests/ Pt is able to perform seated grooming tasks for dynamic Deviations/Treatment balance at EOB with no UE support. : Functional Assessments Other Functional Tests Standing tolerance 30-40 seconds to allow for brief Performed change with modA to maintain upright. M5 PT-IP Objective Assessments Start: 09/03/25 12:04 Freq: NEEDED Status: Active Protocol: Document 09/13/25 12:06 LRN (Rec: 09/13/25 12:34 LRN Laptop) Orientation Orientation/Cognition Orientation Name Comments Continue to re-orientate M6 PT-IP Treatment Start: 09/03/25 12:04 Freq: NEEDED Status: Active Protocol: Document 09/19/25 16:03 NW (Rec: 09/19/25 16:13 NW [id number]) Physical Therapy Treatment Education Education Provided Safety Other Treatments Other Treatment Continuing to sit edge of bed as pt feels up to it for Performed meals. M7 PT-IP Assessment and Plan Start: 09/03/25 12:04 Freq: NEEDED Status: Active Protocol: Document 09/19/25 16:03 NW (Rec: 09/19/25 16:13 NW [id number]) PT Summary Assessment and Plan Potential Rehabilitation Poor Potential Status of Condition Evolving at Evaluation Summary Impairments Pain,Strength,Balance,Sensation,Cognition,Bed Mobility, Transfers,Gait,Activity Tolerance Assessment Summary Alvin declines today secondary to a new onset of fever. Pt is able to perform bed mobility Liliana, sit edge of bed unsupported for 5-6 minutes with dynamic grooming tasks, and is Liliana for STS with heavy posterior support with standing tolerance of < 40 secs at modA to maintain. Pt requires VC and manual weight shift to perform side stepping at edge of bed. Pt is fatigued at end of session. Pt is waiting for KWAME placement and PT should continue to focus on establishing an appropriate transfer method. Goals Bed Mobility Goal Independent Transfer Goal Minimal Assistance,Front Wheeled Walker Gait Goal Contact Guard Assistance,Front Wheel Walker Gait Distance 5 Days to Meet Goals 10 Treatment Plan Physical Therapy Bed Mobility Training,Transfer Training,Gait Training, Treatment Plan Therapeutic Exercise,Balance Retraining,Discharge Planning Other FWW for transfers Recommendations and Next Treatment Focus Precautions Other Precautions falls risk Recommendations To Nursing Amount of Assist Mechanical Lift Needed Discharge Recommendations PT Discharge SNF Rehab Recommendations Other Discharge USP with assistance Recommendations - PT assist 1
--- NOTE | 2025-09-19 15:57 | OT.IP.TRT ---
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 coma (08/31/25) Occupational Therapy Treatment Note M2 OT-IP Current Condition Start: 09/05/25 09:50 Freq: Status: Active Protocol: Document 09/13/25 12:10 AMS (Rec: 09/13/25 12:29 AMS Desktop) Occupational Therapy Current Condition Current Condition Evaluation Date 09/05/25 Treatment Diagnosis ETOH abuse, acute hypokalemia, weakness, decreased self care Post Operative Precautions Other Precautions falls risk Weight Bearing Status Weight Bearing Full Weight Bearing Status M3 OT- IP Subjective and Pain Start: 09/05/25 09:50 Freq: Status: Active Protocol: Document 09/19/25 15:38 BRITNI (Rec: 09/19/25 15:57 YUMITON Desktop) OT- Subjective Occupational Therapy Visit Type Type Treatment Note Visit Start Time 14:55 Visit Stop Time 15:35 Notes Pt was sitting up in bed, alert and agreeable to participating in OT/PT co-tx. Occupational Therapy Visit Comments Patient Comments I was so sick yesterday. I am feeling much better today. Patient/Caregiver To get well Goals OT Pain Assessment Pain Present Pain Present Denied Pain M4 OT- IP ADL's Start: 09/05/25 09:50 Freq: Status: Active Protocol: Document 09/19/25 15:38 BRITNI (Rec: 09/19/25 15:57 ANNIOHNSTON Desktop) OT HIN-Vphc-Yaeazrc Comments OT Self-Feeding not a meal time. Comments OT ADL-Grooming General Evaluation Grooming Ability Minimal Assistance Areas Needing Retrieving/Set-up of Grooming Items Assistance Comments OT Grooming Comments Pt was agreeable to grooming his engle. Pt used a wash cloth to wash food particles from his engle with min A to get it all. He brushed his engle until he was satisfied. Pt performed this while sitting EOB maintaining his balance without assistance. OT ADL-Oral Care General Eval Oral Care Ability Standby Assistance Areas of Assistance Retrieving/Set-Up of Items Comments Oral Care Comments Pt performs while in bed with HOB elevated. Pt needs items to be gathered and OT to hold the basin, otherwise, pt performs this task with S. OT ADL-Dressing General Eval Lower Body Dressing Total Assistance Ability Areas Needing Underpants/Brief Assistance Comments OT Dressing Comments New brief is donned while standing. Pt is unable to assist with any aspect of donning. OT ADL-Toileting Comments OT Toileting Pt is dependent on pure wick at this time. Comments OT ADL-Bathing Comments OT Bathing Comments not observed. M5 OT- IP IADL's Start: 09/05/25 09:50 Freq: Status: Active Protocol: Document 09/13/25 12:10 AMS (Rec: 09/13/25 12:29 AMS Desktop) OT-Instrumental Activities of Daily Living Deficits IADL Deficits Deficits Identified Medication Management Medication Per previous OT, unsafe to manage himself Management Comments Money Management Money Management Per previous OT, needs assistance Comments Meal Preparation Meal Preparation Per previous OT, needs assistance Comments Organizational Development Manager Organizational Development Manager Per previous OT, needs assistance Comments Driving Driving Comments Per previous OT, needs assistance M6 OT- IP Functional Cognition Start: 09/05/25 09:50 Freq: Status: Active Protocol: Document 09/19/25 15:38 BRITNI (Rec: 09/19/25 15:57 BRITNI Desktop) Cognitive Factors Limiting Selfcare Function Cognitive Ability Level of Alertness Alert Patient Orientation Name,Situation Attention Span Capable of Focused Attention,Capable of Sustained Ability Attention Ability to Follow Able to Follow One Step Commands with Increased Time, Commands Able to Follow One Step Commands with Repetition Memory Description Short Term Impaired,Working Impaired Safety Awareness Underestimates Need for Assistance Cognitive Comments Cognitive Assessment Pt continues to be unrealistic about how much Comments assistance he needs; however, he is more alert and is able to carry on a good conversation that is relevant and demonstrates good STM during tx. OT- Vision and Hearing OT- Hearing Assessment OT- Hearing WFL Assessment OT- Vision Assessment Visual Acuity WFL,Glasses For Reading M7 OT- IP Mobility and Balance Start: 09/05/25 09:50 Freq: Status: Active Protocol: Document 09/19/25 15:38 BRITNI (Rec: 09/19/25 15:57 BRITNI Desktop) OT- Bed Mobility Assessment Rolling Type of Rolling Bilateral Level of Assistance Standby Assistance,1 Person Assistance Supine to Sit Supine to Sit Assist Minimal Assistance Sit to Supine Sit to Supine Assist Minimal Assistance,Moderate Assistance,2 Person Assistance Scooting Scooting to Edge of Moderate Assistance,1 Person Assistance Bed OT-Transfer Assessment Sit to and From Stand Sit to and from Minimal Assistance,2 Person Assistance Stand Technique Transfer Destination Bed Devices Transfer Assistive Gait Belt,Front Wheeled Walker Devices Comments Mobility Comments Pt on 3L oxygen, O2 sat 99%, BP in supine 87/53, BP at end of tx 116/64. Pt performed sup>sit with MIN A and scoots EOB with MIN A and vcs to walk his hips forward. Pt with vcs to use UE on hand rails to assist. Pt performs sit<>stands with MIN A, leaning posteriorly into the bed with his LEs for support. Pt takes lateral steps towards head of bed (see PT note for details). Pt with 2 seated rbs. After last stand>sit, pt was presented with tooth brushing supplies but pt began to lean back onto his left elbow with c/o of his back being tired. Pt no longer able to maintain EOB balance safely and returned to supine with MIN/MOD x2. OT- Balance Assessment Sitting Balance and Reactions Static Sitting Good Balance Ability Dynamic Sitting Fair Balance Ability Standing Balance and Reactions Static Standing Poor Balance Ability Dynamic Standing Poor Balance Ability M8 OT- IP Objective Assessments Start: 09/05/25 09:50 Freq: Status: Active Protocol: Document 09/05/25 09:00 ANNICAKADEEM (Rec: 09/05/25 10:07 [facility] Desktop) OT Gross Range of Motion Upper Extremity Range of Motion Assessment Within Functional Limits OT Strength Hand Turf Grower Strength Hand Dominance Right Comments Strength Comments strength not formally assessed, will assess at a later time. M9 OT- IP Assessment and Plan Start: 09/05/25 09:50 Freq: Status: Active Protocol: Document 09/19/25 15:38 BRITNI (Rec: 09/19/25 15:57 [facility] Desktop) OT Summary Assessment and Plan Potential Rehabilitation Fair Potential Analytic Complexity Moderate at Evaluation Summary OT Impairments Balance,Functional Cognition,Functional Mobility,Self- Feeding,Grooming,Dressing,Toileting,Bathing,Toilet Transfers,Shower Transfers,Activity Tolerance Progress Towards Slow Progress due to Medical Issues,Slow Progress due Goals to Cognition Assessment Summary Pt was alert and engaged in OT treatment today. Pt was able to joke and carry on appropriate conversations throughout tx session. Pt with improvements in functional mobility, performing sup>sit with MIN A, sit <>stands with MIN Ax2, and sit>supine MIN/MOD x2. Pt demonstrates improved activity tolerance and core control sitting EOB while performing engle grooming. Pt requires vcs for safety awareness, hand placement during tfs, and to try to avoid leaning into the mattress with his LEs. Pt was too fatigued to perform oral hygiene while EOB and returned to supine to complete. Pt continues to need MIN A for facial grooming but required less assist with oral hygiene with S today. Pt continues to be appropriate for skilled OT services, cont per POC. Pt left reclined in bed with bed exit alarm set, HOB elevated, all needs in reach, and nsg notified. Recommend SNF on dc for safety and improved functional I with BADL and mobility . Goals Self-Feeding Goal Independent Grooming Goal Independent Dressing Goal Independent Toileting Goal Independent Bathing Goal Independent Toilet Transfer Goal Independent Shower Transfer Goal Independent Frequency of Treatment Other frequency 5x/wk Treatment Plan OT Treatment Plan ADL Training,Functional Cognition Training,Functional Mobility,Therapeutic Exercises,Patient/Family Education ,Discharge Planning Other Treatment ADLs Recommendations and Next Treatment Focus Discharge Recommendations OT Discharge SNF Rehab Recommendations Transportation Needs Wheelchair/Cabulance at Discharge
[2025-09-19 19:11] LABS: Appearance Urine UA SL CLOUDY; Bilirubin Urine UA 1+ (NEGATIVE); Color Urine UA BROWN; Glucose Urine UA NEGATIVE (Negative); Ketones Urine UA TRACE (NEGATIVE); Leukocyte Esterase Urine UA 1+ (NEGATIVE); Nitrite Urine UA POSITIVE (Negative); Occult Blood Urine UA NEGATIVE (Negative); Protein Urine UA TRACE (Negative); Specific Gravity Urine UA 1.025 (1.000-1.035); Urobilinogen Urine UA 1.0 E.U./dL (0.2); pH Urine UA 5.0 (4.5-8.0)
[2025-09-19 19:21] LABS: Ictotest Urine Negative (Negative)
[2025-09-19 19:22] LABS: Culture Indicated Urine Specimen Cultured
[2025-09-19 20:17] LABS: Acinetobacter calcoa-baumannii Not Detected (Not Detect); Bacteroides fragilis Not Detected (Not Detect); CTX-M Resistance Not Detected (Not Detect); Candida auris Not Detected (Not Detect); Candida glabrata Not Detected (Not Detect); Cryptococcus neoformans/gatti Not Detected (Not Detect); Enterobacterales Detected (Not Detect); Enterococcus faecalis Not Detected (Not Detect); Enterococcus faecium Not Detected (Not Detect); IMP Resistance Not Detected (Not Detect); KPC Resistance Not Detected (Not Detect); Klebsiella aerogenes Not Detected (Not Detect); NDM Resistance Not Detected (Not Detect); OXA-48-like Resistance Not Detected (Not Detect); Proteus species Not Detected (Not Detect); Serratia marcescens Not Detected (Not Detect); Staphylococcus epidermidis Not Detected (Not Detect); Staphylococcus lugdunensis Not Detected (Not Detect); Staphylococcus species Not Detected (Not Detect); Stenotrophomonas maltophilia Not Detected (Not Detect); Streptococcus agalactiae (Gr B Not Detected (Not Detect); Streptococcus pneumonia Not Detected (Not Detect); Streptococcus pyogenes (Gr A) Not Detected (Not Detect); Streptococcus species Not Detected (Not Detect); VIM Resistance Not Detected (Not Detect); mcr-1 Resistance Not Detected (Not Detect)
[2025-09-20] MEDS: GENTAMICIN 0.3% OPHTH 5 ML 1 DROPS EYE-BOTH ×4 (05:53→18:12)
[2025-09-20 07:21] LABS: Magnesium 1.6 mg/dL (1.6-2.3)
[2025-09-20] MEDS: cefTRIAXone 2,000 MG in SODIUM CHLORIDE 0.9% 100 ML 200 MG IV (07:33)
[2025-09-20 08:00] VITALS: BP 93/55; PULSE 64; RESP 17; TEMP 36.8; O2SAT 94
[2025-09-20] MEDS: MULTIVITAMIN 1 TABLET 1 TAB PO (09:31)
[2025-09-20] MEDS: MAGNESIUM OXIDE 400 MG TABLET PO ×2 (09:31→20:11)
[2025-09-20] MEDS: NICOTINE 14 PATCH 14 MG TOP (09:31)
[2025-09-20] MEDS: PROPRANOLOL 10 MG TABLET PO ×2 (09:31→21:00)
[2025-09-20] MEDS: FOLIC ACID 1 MG TABLET PO (09:31)
[2025-09-20] MEDS: SPIRONOLACTONE 25 MG TABLET PO (09:31)
[2025-09-20] MEDS: FUROSEMIDE 40 MG TABLET PO (09:31)
[2025-09-20] MEDS: LACTULOSE 20 GM/30 ML SOLUTION PO ×2 (09:32→14:54)
[2025-09-20] MEDS: MAGNESIUM CHLORIDE 64 MG TABLET 128 MG PO (09:32)
[2025-09-20] MEDS: ENOXAPARIN 40 MG/0.4 ML SYRINGE SUBCUT (09:32)
[2025-09-20] MEDS: NYSTATIN CREAM 30 GM 1 APPLIC TOP ×2 (09:32→14:54)
[2025-09-20] MEDS: SODIUM CHLORIDE 0.9% FLUSH 10 ML IV ×2 (09:33→21:00)
--- NOTE | 2025-09-20 10:27 | CM.DPNOTE ---
DCP Continued: Reviewed EMR and team rounds for pt?s medical status. Per hospitalist, pt septic with unknown source, pending UA and blood cultures. Likely will need a couple of days until that populates. CERTIFIED SOLID WASTE FACILITY OPERATOR left voice messages with [facility], Woody ph# [phone], re: pt sepsis status and to hopefully coordinate a move-in date at the end of the week. CERTIFIED SOLID WASTE FACILITY OPERATOR spoke with RN Nitrate Operator, Lulu ph# [phone] who is continuing clinical review; CERTIFIED SOL[employer] W[employer]E FACILITY OPERATOR relayed care plan for pending UA and blood cultures and hopeful for medical clearance for [facility] at the end of the week. Plan: Anticipating discharge to [facility] at the end of the week or when medically cleared. It has been confirmed that son will transport home. CM Team will continue to follow for coordination of discharge plans. ERNIE Oconnor
--- NOTE | 2025-09-20 11:17 | OT.IPNOTE ---
Pt getting a shower and able to participate with nursing assist.
--- NOTE | 2025-09-20 14:40 | P.PN_ITS ---
Subjective Subjective Interval history: A&P Sepsis GNB Bacteremia On 09/19, the patient began having fevers ranging from 120.2 to 103.1. He meets SIRS criteria based on tachycardia to 120, tachypnea to 40, hypoxia now requiring 3 L, and fever. This was a significant change in his condition from the day prior. Exam was nonfocal, Abdomen is benign and not consistent with significant ascites. Review of prior imaging shows only minimal ascites. There was not enough fluid to safely perform paracentesis. Labs were sent and demonstrated a new leukocytosis at 17.8, grossly abnormal urine and blood cultures this morning are 2/2 bottles positive for Gram-negative bacilli * Continue ceftriaxone * Follow culture results and adjust antibiotics if needed Liver disease d/t etoh +/- hepatic steatosis Acute alcohol withdrawal, resolved Hepatic encephalopathy, resolved Thrombocytopenia Imaging shows diffuse steatosis but not cirrhosis. Meld-Na score is 21 indicative of a 19% three month mortality. * Continue lactulose * Continue spironolactone and Lasix * Continue lorazepam as needed * Contain labetalol for portal hypertension to decrease the risk of bleeding. 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 * Monitor platelets in the setting of DVT prophylaxis Severe protein calorie malnutrition Debilitation/weakness * Encourage p.o. intake with adequate protein * Continue dysphagia diet per speech therapy * Continue PT and OT Pseudohyponatremia Sodium was as low as 129 earlier in the hospital stay. However corrected sodium based on an albumin of 2.2 is approximately 133 * CTM prn Hypokalemia, resolved Hypomagnesemia Sodium was as low as 3.1 and magnesium 1.5 at presentation. Hypokalemia has resolved. Magnesium was low again yesterday and patient received 2 g of magnesium sulfate IV. Magnesium today is barely normal at 1.6. * Initiate magnesium oxide b.i.d. * Continue to monitor as needed Dermatitis, bilateral feet Patient did not respond to treatment for tinea pedis. On 09/15, clotrimazole change to nystatin and triamcinolone cream added. * Continue current management Code Status: DNR-patient was previously limited code. I discussed this with his mother and sister on 09/19. Decision was made to transition to DNR. They note that the limited code was only in place for the period of time when he was withdrawing from alcohol in cases airway needed to be protected. Diet: Dysphagia Lines/Tubes: PIV, pure wick DVT Prophylaxis: Enoxaparin 40 mg subQ daily Discharge Planning: Patient is not medically ready for discharge given new bacteremia. He is too weak for discharge to home and will need a higher level of care. Anticipate discharge in 3-4. Subjective: The patient is without complaint at this time. He denies headache, chest pain, shortness on breath, cough, abdominal pain, nausea/vomiting. He reports intermittent dysuria but not recently. No acute events overnight Objective Vitals reviewed, 98.2, 93/55, 64, 17, 94% on room air Asleep, awakes to voice, oriented to person and place but not time, ill- appearing NCAT, OP dry, neck supple RRR, nl S1 and S2, no murmurs Bibasilar rales, coarse breath sounds Soft, NT, ND, +BS, tympanitic to percussion Warm without edema Neuro grossly nonfocal, globally weak Pleasant, cooperative Labs: Labs pending at this time. Imaging: No new imaging. Time spent: 45 minutes spent with patient and on the chart (including review of chart, obtaining history, exam, reviewing outside data, placing orders, documenting exam and treatment plan, and counseling patient). Exam Vital Signs (past 8 hours): - 09/20/25 08:00 Temperature 98.2 F Pulse Rate 64 Respiratory Rate 17 Blood Pressure 93/55 L Pulse Oximetry 94 Oxygen Flow Rate 0 Fraction of Inspired Oxygen 32 SaO2/FiO2 Ratio 296 Oxygen Delivery Method Nasal Cannula Oxygen Flow Rate 0 Objective Labs 09/19/25 07:45 09/19/25 07:45 Labs: Laboratory Results - last 24 hr 09/19/25 09/19/25 09/20/25 18:28 19:01 06:50 Magnesium 1.6 Urine Color Brown Urine Appearance Sl cloudy Urine pH 5.0 Ur Specific [place] 1.025 Urine Protein Trace H Urine Glucose (UA) Negative Urine Ketones Trace H Urine Occult Blood Negative Urine Nitrate Positive H Urine Bilirubin 1+ H Ur Bilirubin Confirm Negative Urine Urobilinogen 1.0 Ur Leukocyte Esterase 1+ H Urine RBC None seen Urine WBC 30-100/hpf H Ur Squamous Epith Cells None seen Urine Bacteria Few (2-10) H Ur Culture Indicated? Specimen cultured Vol Urine Centrifuged 10ml (spun) A.calcoaceticus-baumannii cmplx PCR Not detected Bacteroides fragilis Not detected Freda albicans (PCR) Not detected Freda auris (PCR) Not detected C. glabrata (PCR) Not detected C. krusei (PCR) Not detected C. parapsilosis (PCR) Not detected C. tropicalis (PCR) Not detected C. neoform/gattii (PCR) Not detected Enterobacterales (PCR) Detected E. cloacae complex PCR Not detected Enterococc faecalis PCR Not detected Enterococc faecium PCR Not detected E. coli (PCR) Detected H. influenzae (PCR) Not detected Klebsiella aerogenes (PCR) Not detected Klebsiella oxytoca PCR Not detected Klebsiella pneumoniae Not detected List. monocytogenes PCR Not detected N. meningitidis (PCR) Not detected Proteus species (PCR) Not detected Salmonella spp. (PCR) Not detected Serratia marcescens PCR Not detected Staphylococcus sp PCR Not detected Staph aureus (PCR) Not detected mecA/C & MREJ Resist Gene Not applicable mecA/C-Methicil Resis Gene Not applicable mcr-1 Colistin Res Gene PCR Not detected Staph epidermidis (PCR) Not detected Staph lugdunensis PCR Not detected S. maltophilia (PCR) Not detected Streptococcus sp PCR Not detected Group A Strep (PCR) Not detected Strep agalactiae (PCR) Not detected Strep pneumoniae (PCR) Not detected P. aeruginosa (PCR) Not detected Renetta/B-Vanco Res Genes Not applicable blaIMP Car res Gene PCR Not detected KPC-Carbap Res Gene PCR Not detected blaNDM Car Res Gene PCR Not detected OXA-48 Carbapenem Resis Gene (PCR) Not detected blaVIM Car Res Gene PCR Not detected CTX-M Gene Resistance (PCR) Not detected PFSH Medical History Tobacco dependence Alcohol use disorder, moderate, dependence Fentanyl use disorder, mild, abuse Seizures Amputation finger Onychomycosis Chronic pancreatitis Alcoholic pancreatitis Fracture of finger, distal phalanx, open Fracture of finger, middle phalanx, open Alcohol abuse Back pain Surgical History History of surgical amputation of finger Family History Mother Osteoarthritis Father Alcohol abuse Medical history unknown Social History household members: none alcohol intake: current substance use type: marijuana Assessment & Plan Time-Based Coding :: [TOTAL MINUTES] spent with patient and on the chart (including review of chart, obtaining history, exam, reviewing outside data, placing orders, documenting exam and treatment plan, and counseling patient) on [DATE]. Quality VTE Deep Vein Thrombosis/Pulmonary Embolism Present on Admission: No
--- NOTE | 2025-09-20 15:06 | PT.IPTN ---
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 coma (08/31/25) Physical Therapy Treatment Note M2 PT-IP Current Condition Start: 09/03/25 12:04 Freq: NEEDED Status: Active Protocol: Document 09/13/25 12:06 LRN (Rec: 09/13/25 12:34 LRN Laptop) Physical Therapy Current Condition Current Condition Evaluation Date 09/03/25 Treatment Diagnosis weakness Onset Date 08/31/25 M3 PT-IP Subjective Start: 09/03/25 12:04 Freq: NEEDED Status: Active Protocol: Document 09/20/25 14:57 SAK (Rec: 09/20/25 15:06 SAK [id number]) Subjective Physical Therapy Visit Type Type Treatment Note Visit Start Time 13:45 Visit Stop Time 14:16 Number of WHITEPRINTING MACHINE OPERATOR Visits 0 Physical Therapy Visit Comments Patient Comments Pt. supine in bed sleeping, agreeable to PT. Reports had shower earlier, felt good. INSTRUCTIONAL TECHNOLOGIST reports use of lift to get pt to lease examiner Patient Goals To walk. M4 PT-IP Mobility and Gait Start: 09/03/25 12:04 Freq: NEEDED Status: Active Protocol: Document 09/20/25 14:57 SAK (Rec: 09/20/25 15:06 SAK [id number]) PT-Bed Mobility Assessment Supine to Sit Supine to Sit Moderate Assistance,Bedrails Sit to Supine Sit to Supine Moderate Assistance,2 Person Assistance Scooting Scooting Up and Down Moderate Assistance in Bed PT-Transfer Assessment Sit to and From Stand Sit to and from Moderate Assistance,1 Person Assistance,Use of Upper Stand Extremities Transfers Transfer Destination Bedside Commode Transfer Technique Stand Pivot Transfer Ability Level of Assist Moderate Assistance,2 Person Assistance,Use of Upper Extremities Comments Mobility Comments Pt. fatigued s/p shower earlier. Requested transfer to toilet to urinate; pt. assisted as above with bed mobility and transfer to C. For cleaning and pulling up commode had INSTRUCTIONAL TECHNOLOGIST assist with PT mod assist for standing bal 10 sec. Transferred back to bed with mod assist of 2, poor sitting balance with leaning backward prior to laying back into bed. Pt. reported fatigue after session. PT-Balance Assessment Sitting Balance and Reactions Static Sitting Poor Balance Ability Dynamic Sitting Poor Balance Ability Standing Balance and Reactions Static Standing Poor Balance Ability Dynamic Standing Poor Balance Ability Device Used FWW Comments Other Balance Tests/ Pt. leaning backward in sitting requiring mod assist Deviations/Treatment : Functional Assessments Other Functional Tests Standing tolerance limited to 20 sec x 2 during brief Performed change M5 PT-IP Objective Assessments Start: 09/03/25 12:04 Freq: NEEDED Status: Active Protocol: Document 09/13/25 12:06 LRN (Rec: 09/13/25 12:34 LRN Laptop) Orientation Orientation/Cognition Orientation Name Comments Continue to re-orientate M6 PT-IP Treatment Start: 09/03/25 12:04 Freq: NEEDED Status: Active Protocol: Document 09/20/25 14:57 SAK (Rec: 09/20/25 15:06 SAK [id number]) Physical Therapy Treatment Education Education Provided Safety M7 PT-IP Assessment and Plan Start: 09/03/25 12:04 Freq: NEEDED Status: Active Protocol: Document 09/20/25 14:57 SAK (Rec: 09/20/25 15:06 SAK [id number]) PT Summary Assessment and Plan Potential Rehabilitation Poor Potential Status of Condition Evolving at Evaluation Summary Impairments Pain,Strength,Balance,Sensation,Cognition,Bed Mobility, Transfers,Gait,Activity Tolerance Assessment Summary Patient exhibited poor sitting balance this afternoon as well as need for increased assist with bed mobility and decreased standing tolerance. Refused sitting in chair due to c/o uncomfortable. Pt. confused about physical abilities, reporting he would just walk to to the toilet with the walker. Reminded by INSTRUCTIONAL TECHNOLOGIST his legs buckle with attempts at walking. Goals Bed Mobility Goal Independent Transfer Goal Minimal Assistance,Front Wheeled Walker Gait Goal Contact Guard Assistance,Front Wheel Walker Gait Distance 5 Days to Meet Goals 10 Treatment Plan Physical Therapy Bed Mobility Training,Transfer Training,Gait Training, Treatment Plan Therapeutic Exercise,Balance Retraining,Discharge Planning Other FWW for transfers Recommendations and Next Treatment Focus Precautions Other Precautions falls risk Recommendations To Nursing Amount of Assist 1 Person Assist,Total Assistance Needed Discharge Recommendations PT Discharge SNF Rehab Recommendations Other Discharge [facility]ISON with assistance Recommendations - PT assist 1
[2025-09-20 19:00] VITALS: BP 117/76; PULSE 61; RESP 20; TEMP 37.1; O2SAT 96
[2025-09-20 20:09] VITALS: BP 116/77; PULSE 66
[2025-09-21] MEDS: GENTAMICIN 0.3% OPHTH 5 ML 1 DROPS EYE-BOTH ×3 (06:00→14:40)
[2025-09-21 06:54] LABS: Add Manual Diff / Slide Review NO; Hematocrit 26.7 % (41-53); Hemoglobin 9.3 g/dL (13.5-17.5); Lymphocytes Absolute Auto 1600 /uL (1100-4500); Mean Corpuscular HGB Conc 34.9 % (30-36); Mean Corpuscular Hemoglobin 37.6 PG (26-34); Mean Corpuscular Volume 107.9 fL (80-100); Platelet Count 105 X10^3/uL (150-400)
[2025-09-21 07:10] VITALS: BP 118/73; PULSE 66; RESP 18; TEMP 37.3; O2SAT 92
[2025-09-21 07:20] LABS: Blood Urea Nitrogen 8 mg/dL (9-20); Calcium 7.3 mg/dL (8.4-10.2); Carbon Dioxide 29 mmol/L (22-32); Chloride 99 mmol/L (98-107); Estimated Glomerular Filt Rate > 60 mL/min (>60); Glucose 116 mg/dL (70-99); HEMOLYSIS < 15 (0-50); Magnesium 1.5 mg/dL (1.6-2.3); Potassium 3.4 mmol/L (3.4-5.1); Sodium 133 mmol/L (137-145)
[2025-09-21] MEDS: cefTRIAXone 2,000 MG in SODIUM CHLORIDE 0.9% 100 ML 200 MG IV (07:53)
[2025-09-21] MEDS: ENOXAPARIN 40 MG/0.4 ML SYRINGE SUBCUT (08:04)
[2025-09-21] MEDS: MULTIVITAMIN 1 TABLET 1 TAB PO (08:05)
[2025-09-21] MEDS: MAGNESIUM OXIDE 400 MG TABLET PO ×2 (08:05→21:20)
[2025-09-21] MEDS: FUROSEMIDE 40 MG TABLET PO (08:05)
[2025-09-21] MEDS: SPIRONOLACTONE 25 MG TABLET PO (08:05)
[2025-09-21] MEDS: PROPRANOLOL 10 MG TABLET PO ×2 (08:05→21:20)
[2025-09-21] MEDS: FOLIC ACID 1 MG TABLET PO (08:05)
[2025-09-21] MEDS: NICOTINE 14 PATCH 14 MG TOP (08:05)
[2025-09-21] MEDS: SODIUM CHLORIDE 0.9% FLUSH 10 ML IV ×2 (08:06→21:20)
[2025-09-21] MEDS: LACTULOSE 20 GM/30 ML SOLUTION PO ×3 (08:06→21:22)
[2025-09-21] MEDS: MAGNESIUM CHLORIDE 64 MG TABLET 128 MG PO (09:33)
[2025-09-21] MEDS: POTASSIUM CHLORIDE 20 MEQ TAB 40 MEQ PO (09:34)
[2025-09-21] MEDS: TRIAMCINOLONE 0.5% CREAM 1 APPLIC TOP (10:32)
--- NOTE | 2025-09-21 10:51 | CM.DPC ---
Patient is not medically stable for discharge: Positive Blood Cultures. Plan: Redraw blood Cultures and continue IV Abx. RN Lulu Mena with [facility] updated. [phone]
--- NOTE | 2025-09-21 12:47 | CM.DPC ---
Addendum entered by STEFFEN Preciado 09/21/25 15:33: ADD: HCS Unruly returned msg and stated her appreciation for the pre-screen answers but wanted to confirm how long pt might be on IV abx as they are not supposed to assess until pt is within a week of being stable for discharge. SW confirmed with Pharmacist that pt will continue on Ceftriaxone and typically 7-14 days and he has already received two days of doses and if he is improving then could likely do 7 day course of IV abx and transition to po abx. SW also sent pt's Advanced Directives as his POA pwk did not have the correct verbage for [facility] for decision making for his POA mom. If the Advanced Directive does not meet criteria then SW requested Unruly to send their blank copy of the POA form needed. BF Original Note: [facility] Functional Assessment Received an email from Unruly Ahuja ([phone]) from [facility] stating she is assigned to pt's referral for Functional Assessment to confirm he qualifies for Medicaid LTC at [facility]. Unruly was requesting the pre-screen questions to be answered and SW provided the information requested along with attaching the POA pwk on file showing his mom Carmen as his POA and emailed back to [email or web address] STEFFEN Preciado
--- NOTE | 2025-09-21 13:00 | OT.IP.TRT ---
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 coma (08/31/25) Occupational Therapy Treatment Note M2 OT-IP Current Condition Start: 09/05/25 09:50 Freq: Status: Active Protocol: Document 09/13/25 12:10 AMS (Rec: 09/13/25 12:29 AMS Desktop) Occupational Therapy Current Condition Current Condition Evaluation Date 09/05/25 Treatment Diagnosis ETOH abuse, acute hypokalemia, weakness, decreased self care Post Operative Precautions Other Precautions falls risk Weight Bearing Status Weight Bearing Full Weight Bearing Status M3 OT- IP Subjective and Pain Start: 09/05/25 09:50 Freq: Status: Active Protocol: Document 09/21/25 13:08 CCC (Rec: 09/21/25 13:18 CCC Desktop) OT- Subjective Occupational Therapy Visit Type Type Treatment Note Visit Start Time 12:40 Visit Stop Time 13:00 Occupational Therapy Visit Comments Patient Comments Pt agreed to get up to the recliner and have his clothing changed as soiled. Patient/Caregiver To get well Goals OT Pain Assessment Pain When Pain Assessed At Rest Pain Present Pain Present Denied Pain M4 OT- IP ADL's Start: 09/05/25 09:50 Freq: Status: Active Protocol: Document 09/21/25 13:08 CCC (Rec: 09/21/25 13:18 CCC Desktop) OT [id number] Comments OT Self-Feeding Pre nursing once pt sitting upright has been able to Comments eat on his own. OT ADL-Grooming Comments OT Grooming Comments Pt refused grooming needs. OT ADL-Oral Care Comments Oral Care Comments Pt refused at this time. OT ADL-Dressing General Eval Lower Body Dressing Maximum Assistance Ability Areas Needing Underpants/Brief,Pants/Shorts Assistance Comments OT Dressing Comments Pt able to assist to help alma his legs into scrubs and able to assist some to pull up over his hip. Pt tends to lean on the recliner for standing balance and also assist from therapist. OT ADL-Toileting General Evaluation Toileting Ability Maximum Assistance Comments OT Toileting Assist for clothing and completeness. Comments M5 OT- IP IADL's Start: 09/05/25 09:50 Freq: Status: Active Protocol: Document 09/13/25 12:10 AMS (Rec: 09/13/25 12:29 AMS Desktop) OT-Instrumental Activities of Daily Living Deficits IADL Deficits Deficits Identified Medication Management Medication Per previous OT, unsafe to manage himself Management Comments Money Management Money Management Per previous OT, needs assistance Comments Meal Preparation Meal Preparation Per previous OT, needs assistance Comments Teacher Specialist Teacher Specialist Per previous OT, needs assistance Comments Driving Driving Comments Per previous OT, needs assistance M6 OT- IP Functional Cognition Start: 09/05/25 09:50 Freq: Status: Active Protocol: Document 09/21/25 13:08 [facility] (Rec: 09/21/25 13:18 [facility] Desktop) Cognitive Factors Limiting Selfcare Function Cognitive Comments Cognitive Assessment VC for safety. Comments M7 OT- IP Mobility and Balance Start: 09/05/25 09:50 Freq: Status: Active Protocol: Document 09/21/25 13:08 [facility] (Rec: 09/21/25 13:18 [facility] Desktop) OT- Bed Mobility Assessment Supine to Sit Supine to Sit Assist Minimal Assistance OT-Transfer Assessment Sit to and From Stand Sit to and from Minimal Assistance,1 Person Assistance Stand Transfers Transfer Ability Moderate Assistance,2 Person Assistance Technique Transfer Destination Bed,Chair Devices Transfer Assistive Gait Belt,Front Wheeled Walker Devices Comments Mobility Comments MILLY to stand to the FWW and pt heavily use of his legs on the bed to assist to stand. Pt able to transfer with MODA X2 with FWW to the recliner. OT- Balance Assessment Sitting Balance and Reactions Static Sitting Good Balance Ability Dynamic Sitting Fair Balance Ability Standing Balance and Reactions Static Standing Poor Balance Ability Dynamic Standing Poor Balance Ability M8 OT- IP Objective Assessments Start: 09/05/25 09:50 Freq: Status: Active Protocol: Document 09/05/25 09:00 BRIT[facility] (Rec: 09/05/25 10:07 [facility] Desktop) OT Gross Range of Motion Upper Extremity Range of Motion Assessment Within Functional Limits OT Strength Hand Assistant Professor Of Geography Strength Hand Dominance Right Comments Strength Comments strength not formally assessed, will assess at a later time. M9 OT- IP Assessment and Plan Start: 09/05/25 09:50 Freq: Status: Active Protocol: Document 09/21/25 13:08 [facility] (Rec: 09/21/25 13:18 [facility] Desktop) OT Summary Assessment and Plan Potential Rehabilitation Fair Potential Analytic Complexity Moderate at Evaluation Summary OT Impairments Balance,Functional Cognition,Functional Mobility,Self- Feeding,Grooming,Dressing,Toileting,Bathing,Toilet Transfers,Shower Transfers,Activity Tolerance Progress Towards Progressing Toward Goals,Slow Progress due to Medical Goals Issues Assessment Summary Pt able to participate in LB dressing, toileting and transfer with FWW today, pt awaiting placement for [facility]. Goals Self-Feeding Goal Independent Grooming Goal Independent Dressing Goal Minimal Assistance Toileting Goal Minimal Assistance Bathing Goal Minimal Assistance Toilet Transfer Goal Standby Assistance Shower Transfer Goal Contact Guard Assistance Days to Meet Goals 15 Frequency of Treatment Other frequency 5x/wk Treatment Plan OT Treatment Plan ADL Training,Functional Cognition Training,Functional Mobility,Therapeutic Exercises,Patient/Family Education ,Discharge Planning Discharge Recommendations OT Discharge LTAC Recommendations Transportation Needs Wheelchair/Cabulance at Discharge
--- NOTE | 2025-09-21 13:01 | PT.IPTN ---
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 coma (08/31/25) Physical Therapy Treatment Note M2 PT-IP Current Condition Start: 09/03/25 12:04 Freq: NEEDED Status: Active Protocol: Document 09/13/25 12:06 LRN (Rec: 09/13/25 12:34 LRN Laptop) Physical Therapy Current Condition Current Condition Evaluation Date 09/03/25 Treatment Diagnosis weakness Onset Date 08/31/25 M3 PT-IP Subjective Start: 09/03/25 12:04 Freq: NEEDED Status: Active Protocol: Document 09/21/25 13:07 NW (Rec: 09/21/25 13:12 NW [id number]) Subjective Physical Therapy Visit Type Type Treatment Note Visit Start Time 12:40 Visit Stop Time 13:01 Number of OPTOMETRIC TECH Visits 0 Physical Therapy Visit Comments Patient Comments Pt is found resting supine in bed and wants to sit up to eat. Patient Goals to walk M4 PT-IP Mobility and Gait Start: 09/03/25 12:04 Freq: NEEDED Status: Active Protocol: Document 09/21/25 13:07 NW (Rec: 09/21/25 13:12 NW [id number]) PT-Bed Mobility Assessment Supine to Sit Supine to Sit Minimal Assistance,1 Person Assistance,Head of Bed Elevated,Bedrails Scooting Scooting to Edge of Minimal Assistance Bed PT-Transfer Assessment Sit to and From Stand Sit to and from Minimal Assistance,1 Person Assistance,Use of Upper Stand Extremities Equipment Transfer Assistive Gait Belt,Front Wheeled Walker Device Transfers Transfer Destination Chair Transfer Technique Stand Step Pivot Transfer Ability Level of Assist Moderate Assistance,2 Person Assistance,Use of Upper Extremities Comments Mobility Comments Requires posterior support on edge of bed to maintain stance with bilateral UE on FWW. Cues to right self and stand tall with inconsistent ability to do so. Pt utilizes momentum to achieve stance from edge of bed and bed side chair. Able to assist with pulling brief and pants up with modA to maintain balance. Performed 3 x STS. PT-Balance Assessment Sitting Balance and Reactions Static Sitting Good Balance Ability Dynamic Sitting Fair Balance Ability Standing Balance and Reactions Static Standing Poor Balance Ability Dynamic Standing Poor Balance Ability Device Used FWW Functional Assessments Other Functional Tests Standing tolerance < 1 minute x 2 throughout session to Performed assist with clothing management. M5 PT-IP Objective Assessments Start: 09/03/25 12:04 Freq: NEEDED Status: Active Protocol: Document 09/13/25 12:06 LRN (Rec: 09/13/25 12:34 LRN Laptop) Orientation Orientation/Cognition Orientation Name Comments Continue to re-orientate M6 PT-IP Treatment Start: 09/03/25 12:04 Freq: NEEDED Status: Active Protocol: Document 09/21/25 13:07 NW (Rec: 09/21/25 13:12 NW [id number]) Physical Therapy Treatment Education Education Provided Safety Other Treatments Other Treatment Educated on importance to spend time out of bed to Performed maintain strength. M7 PT-IP Assessment and Plan Start: 09/03/25 12:04 Freq: NEEDED Status: Active Protocol: Document 09/21/25 13:07 NW (Rec: 09/21/25 13:12 NW [id number]) PT Summary Assessment and Plan Potential Rehabilitation Fair Potential Status of Condition Evolving at Evaluation Summary Impairments Pain,Strength,Balance,Sensation,Cognition,Bed Mobility, Transfers,Gait,Activity Tolerance Assessment Summary Pt continues to maintain current status of being able to sit EOB at CGA with Liliana for dynamic balance occasionally. ModA to maintain upright with Liliana to achieve stance with heavy momentum anterior. Able to perform stand pivot transfer modA of 2. Pt is waiting to discharge to [facility]. Goals Bed Mobility Goal Independent Transfer Goal Minimal Assistance,Front Wheeled Walker Gait Goal Contact Guard Assistance,Front Wheel Walker Gait Distance 5 Days to Meet Goals 10 Treatment Plan Physical Therapy Bed Mobility Training,Transfer Training,Gait Training, Treatment Plan Therapeutic Exercise,Balance Retraining,Discharge Planning Other FWW for transfers Recommendations and Next Treatment Focus Precautions Other Precautions falls risk Recommendations To Nursing Amount of Assist 2 Person Assist,Total Assistance Needed Discharge Recommendations PT Discharge SNF Rehab Recommendations Other Discharge [facility] with assistance Recommendations - PT assist 2
--- NOTE | 2025-09-21 17:49 | P.PN_ITS ---
Subjective Subjective Date Patient Seen: 09/21/25 Time Patient Seen: 17:49 Interval history: Chief complaint: Alcohol withdrawal hepatic encephalopathy Gram-negative zoë sepsis History of present illness: 08/31: 65-year-old male long-term severe alcoholism usually remains isolated was found his son to be in very very poor health looking jaundiced had him brought to the emergency room for evaluation. Past medical history significant for very severe episodes of alcohol withdrawal requiring prolonged intubation for control and cup protection of the airway during sedation at least 4 times Emergency room note: 65-year-old male with a past medical history of alcohol use disorder, pancreatitis, tobacco use who presents to the emergency department with his son for left-sided back pain/concerned for pancreatitis x3 weeks. Patient drinks about a qt of rum a day, last drink was this morning. He has been having pain in the left side of his back that feels similar to pancreatitis pain for the last 3 weeks. He has also been having abdominal bloating. His son convinced him to come to the emergency department today. Patient reports he is not having diarrhea or constipation but does admit to nonbloody vomiting few days ago. Reports tingling in his hands and feet. States he does have a history of withdrawal seizures. He is having pain in the left side of his back with deep breathing. Denies dysuria but reports bloody urine. He denies any prescription medication use, blood thinner use. At the time of my evaluation patient was sedated and not arousable enough to give a history or answer review of systems Findings in the emergency department significant for: Alcohol level 183 Total bili of 10 ammonia of 72 potassium 2.8 sodium 134 lactate of 4.8 initially (2.2 after hydration) PT INR 1.3 PTT 40 platelets 72 Procalcitonin and TSH are and reference range CT of the chest abdomen and pelvis: 1. No acute inflammatory process identified in the abdomen or pelvis. No acute fracture. 2. Diffuse hepatic steatosis. 3. Signs of portal hypertension including small volume of ascites, mild periesophageal varices common recanalized periumbilical vein. 4. Right middle lobe 7 mm pulmonary nodule. Recommend follow-up CT of the chest in 6-12 months. Hospital course: 09/01: Patient is less somnolent today but does not make meaningful verbal responses bilirubin has dropped to 7.8 from 10 pneumonia has dropped from 72-62 potassium was 2.9 09/02: Today patient is less somnolent but still quite confused and somnolent patient appears to have dysphagia bilirubin has de-escalated to 6.5 potassium 3.1 09/03: More alert with improved labs. Weaned phenobarbital. Bili 6.5, NH3 42. 09/05: More alert and most recent Bilirubin is 7.0. AST 97, alk phos 239. Patient and his mother who is POA agreed that other family members could be briefed. Daughter is nurse and granddaughter is a physician. Discussed with his son today. Appropriate for hospice and will need usp care. Tinea pedis rash to be treated. Minimal swallowing noted by speech therapy. Self feeding very limited noted on OT eval. 09/06: Much more alert and verbally argumentative today. He is demanding to go home but is not capable of understanding his physical limitations. Discussed with son who is present. He is not dropping the food down his shirt today but is still unable to swallow so a modified barium swallow will be done. Ammonia level yesterday was less than 9. 09/07: Wax and waning mental status, not oriented to place or year. Required some Ativan for impulsive behavior. 09/08: He was more alert and interactive. He is oriented to hospital and year today. 09/09: Discharge has been delayed due to his insurance and facility reluctance to accept him due to the psychosocial conditions. He has been able to stand up in the room and walk a little bit with physical therapy. He complains of not being fed on his preferred scheduled. He appears very sleepy. His last labs from 09/04 are reviewed. 09/10: Overnight he reportedly appear to aspirate on lactulose so has been NPO today. We will ask speech therapy to see him again. Began on Lasix yesterday and appears less edematous today. Remains confused and jaundiced. Pizarro catheter has very bilious appearing urine. Potassium 2.9 today, after starting Lasix yesterday, so is receiving supplementation. Discharge has been delayed due to his insurance and facility reluctance to accept him due to the psychosocial conditions. 09/11: White blood count 9.3, hemoglobin 10.4, platelets 109. Sodium 133 potassium 3.2. He will receive additional 40 mEq of IV potassium today. Total bilirubin 6.0. AST 74. He is sleeping/sedated from his Librium during my visit. He continues on dysphagia diet per speech therapy re-evaluation yesterday. The caution was to not give him anything to eat or drink if he is sedated. Hopefully stopping the Librium will help that. 09/12: The patient is much more interactive and alert today (after stopping the Librium). He is asking for a shower. He is talking about his dog at home. Potassium is 2.9. Now that he is swallowing well that will be replaced with oral potassium. He will also be started on spironolactone and the Lasix dose will be decreased. 09/13: Edema seems to have worsened with the decrease of Lasix dose. The potassium continues to run low at 3.1. He is receiving an additional 80 mEq p.o. today. The magnesium level is 1.5 so that will be addressed. The hemoglobin has dropped from 10.4 down to 9.5. The platelets have dropped to 99. I called and spoke with his mother about the lack of discharge options as multiple usp facilities have declined. She is coming [place] from [place] of [place] and is going to ask for assistance finding caregivers for him at his home. 09/14: Per further discussions with social service/activity therapy teacher and his mother we are pivoting to a target of adult family home discharge. Today he is alert and conversant without significant agitation. He is looking forward to a shower. The hemoglobin continues to drop slowly, now down to 9.0. Check B12, folate and iron. His edema seems to have increased so the Lasix dose will be increased back up to 40 mg. The flaking rash on his feet has returned so we will change the topical treatment to nystatin. We will also remove the Pizarro catheter today. His urine continues to be very bilious 09/15: The foot rash does not appear to be responding to tinea treatment so we will treat for eczema with triamcinolone cream. He is feeding himself breakfast today. His mother is working on evaluating several potential adult family homes for him to discharge there soon. He says he is walking with a walker but PT assures me that with a walker he is only able to stand and move slightly sideways so far. His edema appears to be worse. That is likely related to increased oral fluid and dietary salt intake. He is already on Lasix and spironolactone. The hemoglobin has risen to 9.6 today. The sodium is 131 with a potassium of 3.8. The iron level is 106 with a B12 greater than 1000 and a folate of 5.5. 09/16: Hemoglobin drifted back down to 9.0 today. Potassium is 3.4. He continues with significant peripheral edema. He is asleep during my visit today. His mother is looking at/touring adult family homes so discharge plans are steadily coming together. 09/17: He has no complaints. He is alert, appropriate and states no pain or discomfort. He has been up walking with physical therapy. He states that he is ?done with alcohol?. He plans to go to an adult family home in [place] pending final arrangements. He had a 2 L diuresis yesterday and states edema has improved. 09/19: The patient began having fevers ranging from 120.2 to 103.1. He meets SIRS criteria based on tachycardia to 120, tachypnea to 40, hypoxia now requiring 3 L, and fever. This was a significant change in his condition from the day prior. Exam was nonfocal, Abdomen is benign and not consistent with significant ascites. Review of prior imaging shows only minimal ascites. There was not enough fluid to safely perform paracentesis. Labs were sent and demonstrated a new leukocytosis at 17.8, grossly abnormal urine and blood cultures this morning are 2/2 bottles positive for Gram-negative bacilli 09/21: Continuing to improve no fevers in the last 24 hours vital signs stable patient without complaints blood culture positive for E coli pansensitive likely from spontaneous bacterial peritonitis Review of systems: No fever or chills rigors No chest pain palpitations shortness for breath No abdominal pain nausea vomiting Physical exam: NAD, alert, deeply jaundiced, scleral icterus. Lungs are clear, normal rate and effort. Heart is regular, no murmur gallop or rub. Abdomen is soft, less distended. Extremities 1-2+ bilateral pitting edema Flaking rash on both feet recurring Pizarro has been removed . Escherichia coli M.I.C. RX --------- --- * Amoxicillin/Clavulanate 16 I * Ampicillin >=32 R * Ampicillin/Sulbactam 16 I * Aztreonam <=1 S * Cefepime E-test S * Ceftazidime <=0.5 S * Ceftriaxone <=0.25 S * Cefuroxime 4 S * Ciprofloxacin 0.5 I * Ertapenem <=0.12 S * Gentamicin <=1 S * Levofloxacin 1 I * Meropenem <=0.25 S * Tetracycline >=16 R * Trimethoprim/Sulfamethoxazole <=20 S Assessment and plan: Liver disease d/t etoh +/- hepatic steatosis Acute alcohol withdrawal, resolved Hepatic encephalopathy, resolved Thrombocytopenia Imaging shows diffuse steatosis but not cirrhosis. Meld-Na score is 21 indicative of a 19% three month mortality. * Continue lactulose * Continue spironolactone and Lasix * Continue lorazepam as needed * Contain labetalol for portal hypertension to decrease the risk of bleeding. 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 * Monitor platelets in the setting of DVT prophylaxis Severe protein calorie malnutrition Debilitation/weakness * Encourage p.o. intake with adequate protein * Continue dysphagia diet per speech therapy * Continue PT and OT Pseudohyponatremia Sodium was as low as 129 earlier in the hospital stay. However corrected sodium based on an albumin of 2.2 is approximately 133 * CTM prn Hypokalemia, resolved Hypomagnesemia Sodium was as low as 3.1 and magnesium 1.5 at presentation. Hypokalemia has resolved. Magnesium was low again yesterday and patient received 2 g of magnesium sulfate IV. Magnesium today is barely normal at 1.6. * Initiate magnesium oxide b.i.d. * Continue to monitor as needed Dermatitis, bilateral feet Patient did not respond to treatment for tinea pedis. On 09/15, clotrimazole change to nystatin and triamcinolone cream added. * Continue current management Code Status: DNR-patient was previously limited code. I discussed this with his mother and sister on 09/19. Decision was made to transition to DNR. They note that the limited code was only in place for the period of time when he was withdrawing from alcohol in cases airway needed to be protected. Diet: Dysphagia Lines/Tubes: PIV, pure wick DVT Prophylaxis: Enoxaparin 40 mg subQ daily Discharge Planning: Patient is not medically ready for discharge given new bacteremia. He is too weak for discharge to home and will need a higher level of care. Anticipate discharge in 3-4. Time based billing: * 35 minutes were involved in evaluation of the patient including [id number] evaluation physical examination and discussion with care management team Exam Vital Signs (past 8 hours): Fraction of Inspired Oxygen 32 SaO2/FiO2 Ratio 296 Oxygen Delivery Method Room Air Oxygen Flow Rate 0 Objective Labs 09/21/25 06:15 09/21/25 06:15 Labs: Laboratory Results - last 24 hr 09/21/25 06:15 WBC 8.6 D RBC 2.48 L Hgb 9.3 L Hct 26.7 L MCV 107.9 H MCH 37.6 H MCHC 34.9 RDW 13.7 Plt Count 105 L Neut % (Auto) 66.4 Lymph % (Auto) 18.2 L Pratt % (Auto) 13.7 Eos % (Auto) 0.3 L Baso % (Auto) 1.4 Neut # (Auto) 5700 Lymph # (Auto) 1600 Pratt # (Auto) 1200 H Eos # (Auto) 0 Baso # (Auto) 100 Sodium 133 L Potassium 3.4 Chloride 99 Carbon Dioxide 29 BUN 8 L Creatinine 0.54 L Estimated GFR > 60 BUN/Creatinine Ratio 14.8 Glucose 116 H Calcium 7.3 L Magnesium 1.5 L PFSH Medical History Tobacco dependence Alcohol use disorder, moderate, dependence Fentanyl use disorder, mild, abuse Seizures Amputation finger Onychomycosis Chronic pancreatitis Alcoholic pancreatitis Fracture of finger, distal phalanx, open Fracture of finger, middle phalanx, open Alcohol abuse Back pain Surgical History History of surgical amputation of finger Family History Mother Osteoarthritis Father Alcohol abuse Medical history unknown Social History household members: none alcohol intake: current substance use type: marijuana Assessment & Plan Time-Based Coding :: [TOTAL MINUTES] spent with patient and on the chart (including review of chart, obtaining history, exam, reviewing outside data, placing orders, documenting exam and treatment plan, and counseling patient) on [DATE]. Quality VTE Deep Vein Thrombosis/Pulmonary Embolism Present on Admission: No
[2025-09-21 19:45] VITALS: BP 106/71; PULSE 60; RESP 18; TEMP 37.2; O2SAT 92
[2025-09-21 21:20] VITALS: BP 106/71; PULSE 60
[2025-09-21] MEDS: NYSTATIN CREAM 30 GM 1 APPLIC TOP (21:20)
[2025-09-22 06:01] LABS: Blood Urea Nitrogen 7 mg/dL (9-20); Calcium 7.2 mg/dL (8.4-10.2); Carbon Dioxide 29 mmol/L (22-32); Chloride 100 mmol/L (98-107); Estimated Glomerular Filt Rate > 60 mL/min (>60); Glucose 122 mg/dL (70-99); HEMOLYSIS < 15 (0-50); Magnesium 1.6 mg/dL (1.6-2.3); Potassium 3.4 mmol/L (3.4-5.1); Sodium 132 mmol/L (137-145)
[2025-09-22 08:41] VITALS: BP 116/82; PULSE 66; RESP 16; TEMP 36.8; O2SAT 93
[2025-09-22] MEDS: ENOXAPARIN 40 MG/0.4 ML SYRINGE SUBCUT (09:02)
[2025-09-22] MEDS: cefTRIAXone 2,000 MG in SODIUM CHLORIDE 0.9% 100 ML 200 MG IV (09:03)
[2025-09-22] MEDS: PROPRANOLOL 10 MG TABLET PO (09:04)
[2025-09-22] MEDS: MULTIVITAMIN 1 TABLET 1 TAB PO (09:04)
[2025-09-22] MEDS: SODIUM CHLORIDE 0.9% FLUSH 10 ML IV ×2 (09:05→20:20)
[2025-09-22] MEDS: SPIRONOLACTONE 25 MG TABLET PO (09:05)
[2025-09-22] MEDS: FOLIC ACID 1 MG TABLET PO (09:05)
[2025-09-22] MEDS: MAGNESIUM OXIDE 400 MG TABLET PO ×2 (09:05→20:19)
[2025-09-22] MEDS: FUROSEMIDE 40 MG TABLET PO (09:05)
[2025-09-22] MEDS: POTASSIUM CHLORIDE 20 MEQ TAB 40 MEQ PO (09:06)
[2025-09-22] MEDS: NICOTINE 14 PATCH 14 MG TOP (09:06)
[2025-09-22] MEDS: MAGNESIUM CHLORIDE 64 MG TABLET 128 MG PO (09:18)
[2025-09-22] MEDS: NYSTATIN CREAM 30 GM 1 APPLIC TOP ×3 (09:29→20:20)
--- NOTE | 2025-09-22 11:02 | P.PN_ITS ---
Subjective Subjective Date Patient Seen: 09/22/25 Time Patient Seen: 11:02 Interval history: Chief complaint: Alcohol withdrawal hepatic encephalopathy Gram-negative zoë sepsis History of present illness: 08/31: 65-year-old male long-term severe alcoholism usually remains isolated was found his son to be in very very poor health looking jaundiced had him brought to the emergency room for evaluation. Past medical history significant for very severe episodes of alcohol withdrawal requiring prolonged intubation for control and cup protection of the airway during sedation at least 4 times Emergency room note: 65-year-old male with a past medical history of alcohol use disorder, pancreatitis, tobacco use who presents to the emergency department with his son for left-sided back pain/concerned for pancreatitis x3 weeks. Patient drinks about a qt of rum a day, last drink was this morning. He has been having pain in the left side of his back that feels similar to pancreatitis pain for the last 3 weeks. He has also been having abdominal bloating. His son convinced him to come to the emergency department today. Patient reports he is not having diarrhea or constipation but does admit to nonbloody vomiting few days ago. Reports tingling in his hands and feet. States he does have a history of withdrawal seizures. He is having pain in the left side of his back with deep breathing. Denies dysuria but reports bloody urine. He denies any prescription medication use, blood thinner use. At the time of my evaluation patient was sedated and not arousable enough to give a history or answer review of systems Findings in the emergency department significant for: Alcohol level 183 Total bili of 10 ammonia of 72 potassium 2.8 sodium 134 lactate of 4.8 initially (2.2 after hydration) PT INR 1.3 PTT 40 platelets 72 Procalcitonin and TSH are and reference range CT of the chest abdomen and pelvis: 1. No acute inflammatory process identified in the abdomen or pelvis. No acute fracture. 2. Diffuse hepatic steatosis. 3. Signs of portal hypertension including small volume of ascites, mild periesophageal varices common recanalized periumbilical vein. 4. Right middle lobe 7 mm pulmonary nodule. Recommend follow-up CT of the chest in 6-12 months. Hospital course: 09/01: Patient is less somnolent today but does not make meaningful verbal responses bilirubin has dropped to 7.8 from 10 pneumonia has dropped from 72-62 potassium was 2.9 09/02: Today patient is less somnolent but still quite confused and somnolent patient appears to have dysphagia bilirubin has de-escalated to 6.5 potassium 3.1 09/03: More alert with improved labs. Weaned phenobarbital. Bili 6.5, NH3 42. 09/05: More alert and most recent Bilirubin is 7.0. AST 97, alk phos 239. Patient and his mother who is POA agreed that other family members could be briefed. Daughter is nurse and granddaughter is a physician. Discussed with his son today. Appropriate for hospice and will need half-way care. Tinea pedis rash to be treated. Minimal swallowing noted by speech therapy. Self feeding very limited noted on OT eval. 09/06: Much more alert and verbally argumentative today. He is demanding to go home but is not capable of understanding his physical limitations. Discussed with son who is present. He is not dropping the food down his shirt today but is still unable to swallow so a modified barium swallow will be done. Ammonia level yesterday was less than 9. 09/07: Wax and waning mental status, not oriented to place or year. Required some Ativan for impulsive behavior. 09/08: He was more alert and interactive. He is oriented to hospital and year today. 09/09: Discharge has been delayed due to his insurance and facility reluctance to accept him due to the psychosocial conditions. He has been able to stand up in the room and walk a little bit with physical therapy. He complains of not being fed on his preferred scheduled. He appears very sleepy. His last labs from 09/04 are reviewed. 09/10: Overnight he reportedly appear to aspirate on lactulose so has been NPO today. We will ask speech therapy to see him again. Began on Lasix yesterday and appears less edematous today. Remains confused and jaundiced. Pizarro catheter has very bilious appearing urine. Potassium 2.9 today, after starting Lasix yesterday, so is receiving supplementation. Discharge has been delayed due to his insurance and facility reluctance to accept him due to the psychosocial conditions. 09/11: White blood count 9.3, hemoglobin 10.4, platelets 109. Sodium 133 potassium 3.2. He will receive additional 40 mEq of IV potassium today. Total bilirubin 6.0. AST 74. He is sleeping/sedated from his Librium during my visit. He continues on dysphagia diet per speech therapy re-evaluation yesterday. The caution was to not give him anything to eat or drink if he is sedated. Hopefully stopping the Librium will help that. 09/12: The patient is much more interactive and alert today (after stopping the Librium). He is asking for a shower. He is talking about his dog at home. Potassium is 2.9. Now that he is swallowing well that will be replaced with oral potassium. He will also be started on spironolactone and the Lasix dose will be decreased. 09/13: Edema seems to have worsened with the decrease of Lasix dose. The potassium continues to run low at 3.1. He is receiving an additional 80 mEq p.o. today. The magnesium level is 1.5 so that will be addressed. The hemoglobin has dropped from 10.4 down to 9.5. The platelets have dropped to 99. I called and spoke with his mother about the lack of discharge options as multiple half-way facilities have declined. She is coming [place] from [place] of [place] and is going to ask for assistance finding caregivers for him at his home. 09/14: Per further discussions with social service/product planner and his mother we are pivoting to a target of adult family home discharge. Today he is alert and conversant without significant agitation. He is looking forward to a shower. The hemoglobin continues to drop slowly, now down to 9.0. Check B12, folate and iron. His edema seems to have increased so the Lasix dose will be increased back up to 40 mg. The flaking rash on his feet has returned so we will change the topical treatment to nystatin. We will also remove the Pizarro catheter today. His urine continues to be very bilious 09/15: The foot rash does not appear to be responding to tinea treatment so we will treat for eczema with triamcinolone cream. He is feeding himself breakfast today. His mother is working on evaluating several potential adult family homes for him to discharge there soon. He says he is walking with a walker but PT assures me that with a walker he is only able to stand and move slightly sideways so far. His edema appears to be worse. That is likely related to increased oral fluid and dietary salt intake. He is already on Lasix and spironolactone. The hemoglobin has risen to 9.6 today. The sodium is 131 with a potassium of 3.8. The iron level is 106 with a B12 greater than 1000 and a folate of 5.5. 09/16: Hemoglobin drifted back down to 9.0 today. Potassium is 3.4. He continues with significant peripheral edema. He is asleep during my visit today. His mother is looking at/touring adult family homes so discharge plans are steadily coming together. 09/17: He has no complaints. He is alert, appropriate and states no pain or discomfort. He has been up walking with physical therapy. He states that he is ?done with alcohol?. He plans to go to an adult family home in [place] pending final arrangements. He had a 2 L diuresis yesterday and states edema has improved. 09/19: The patient began having fevers ranging from 120.2 to 103.1. He meets SIRS criteria based on tachycardia to 120, tachypnea to 40, hypoxia now requiring 3 L, and fever. This was a significant change in his condition from the day prior. Exam was nonfocal, Abdomen is benign and not consistent with significant ascites. Review of prior imaging shows only minimal ascites. There was not enough fluid to safely perform paracentesis. Labs were sent and demonstrated a new leukocytosis at 17.8, grossly abnormal urine and blood cultures this morning are 2/2 bottles positive for Gram-negative bacilli 09/21: Continuing to improve no fevers in the last 24 hours vital signs stable patient without complaints blood culture positive for E coli pansensitive likely from spontaneous bacterial peritonitis 09/22: Continuing to improve no further fevers Review of systems: No fever or chills rigors No chest pain palpitations shortness for breath No abdominal pain nausea vomiting Physical exam: NAD, alert, deeply jaundiced, scleral icterus. Lungs are clear, normal rate and effort. Heart is regular, no murmur gallop or rub. Abdomen is soft, less distended. Extremities 1-2+ bilateral pitting edema Flaking rash on both feet recurring Pizarro has been removed . Escherichia coli M.I.C. RX --------- --- * Amoxicillin/Clavulanate 16 I * Ampicillin >=32 R * Ampicillin/Sulbactam 16 I * Aztreonam <=1 S * Cefepime E-test S * Ceftazidime <=0.5 S * Ceftriaxone <=0.25 S * Cefuroxime 4 S * Ciprofloxacin 0.5 I * Ertapenem <=0.12 S * Gentamicin <=1 S * Levofloxacin 1 I * Meropenem <=0.25 S * Tetracycline >=16 R * Trimethoprim/Sulfamethoxazole <=20 S Assessment and plan: E coli bacteremia 09/19 likely source spontaneous bacterial peritonitis * Repeat blood cultures today * Last dose of ceftriaxone 09/23 Liver disease d/t etoh +/- hepatic steatosis Acute alcohol withdrawal, resolved Hepatic encephalopathy, resolved Thrombocytopenia Imaging shows diffuse steatosis but not cirrhosis. Meld-Na score is 21 indicative of a 19% three month mortality. * Continue lactulose * Continue spironolactone and Lasix * Continue lorazepam as needed * Contain labetalol for portal hypertension to decrease the risk of bleeding. 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 * Monitor platelets in the setting of DVT prophylaxis Severe protein calorie malnutrition Debilitation/weakness * Encourage p.o. intake with adequate protein * Continue dysphagia diet per speech therapy * Continue PT and OT Pseudohyponatremia Sodium was as low as 129 earlier in the hospital stay. However corrected sodium based on an albumin of 2.2 is approximately 133 * CTM prn Hypokalemia, resolved Hypomagnesemia Sodium was as low as 3.1 and magnesium 1.5 at presentation. Hypokalemia has resolved. Magnesium was low again yesterday and patient received 2 g of magnesium sulfate IV. Magnesium today is barely normal at 1.6. * Initiate magnesium oxide b.i.d. * Continue to monitor as needed Dermatitis, bilateral feet Patient did not respond to treatment for tinea pedis. On 09/15, clotrimazole change to nystatin and triamcinolone cream added. * Continue current management Code Status: DNR-patient was previously limited code. I discussed this with his mother and sister on 09/19. Decision was made to transition to DNR. They note that the limited code was only in place for the period of time when he was withdrawing from alcohol in cases airway needed to be protected. Diet: Dysphagia Lines/Tubes: PIV, pure wick DVT Prophylaxis: Enoxaparin 40 mg subQ daily Discharge Planning: Patient is not medically ready for discharge given new bacteremia. He is too weak for discharge to home and will need a higher level of care. Anticipate discharge in 3-4. Time based billing: * 35 minutes were involved in evaluation of the patient including [id number] evaluation physical examination and discussion with care management team Exam Vital Signs (past 8 hours): - 09/22/25 08:41 Temperature 98.2 F Pulse Rate 66 Respiratory Rate 16 Blood Pressure 116/82 Pulse Oximetry 93 Oxygen Flow Rate 0 Fraction of Inspired Oxygen 32 SaO2/FiO2 Ratio 296 Oxygen Delivery Method Room Air Oxygen Flow Rate 0 Objective Labs 09/21/25 06:15 09/22/25 04:55 Labs: Laboratory Results - last 24 hr 09/22/25 04:55 Sodium 132 L Potassium 3.4 Chloride 100 Carbon Dioxide 29 BUN 7 L Creatinine 0.51 L Estimated GFR > 60 BUN/Creatinine Ratio 13.7 Glucose 122 H Calcium 7.2 L Magnesium 1.6 PFSH Medical History Tobacco dependence Alcohol use disorder, moderate, dependence Fentanyl use disorder, mild, abuse Seizures Amputation finger Onychomycosis Chronic pancreatitis Alcoholic pancreatitis Fracture of finger, distal phalanx, open Fracture of finger, middle phalanx, open Alcohol abuse Back pain Surgical History History of surgical amputation of finger Family History Mother Osteoarthritis Father Alcohol abuse Medical history unknown Social History household members: none alcohol intake: current substance use type: marijuana Assessment & Plan Time-Based Coding :: [TOTAL MINUTES] spent with patient and on the chart (including review of chart, obtaining history, exam, reviewing outside data, placing orders, documenting exam and treatment plan, and counseling patient) on [DATE]. Quality VTE Deep Vein Thrombosis/Pulmonary Embolism Present on Admission: No
--- NOTE | 2025-09-22 13:41 | OT.IPNOTE ---
Pt sleeping soundly, PT to check on pt later.
--- NOTE | 2025-09-22 14:56 | PT.IPTN ---
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 coma (08/31/25) Physical Therapy Treatment Note M2 PT-IP Current Condition Start: 09/03/25 12:04 Freq: NEEDED Status: Active Protocol: Document 09/13/25 12:06 LRN (Rec: 09/13/25 12:34 LRN Laptop) Physical Therapy Current Condition Current Condition Evaluation Date 09/03/25 Treatment Diagnosis weakness Onset Date 08/31/25 M3 PT-IP Subjective Start: 09/03/25 12:04 Freq: NEEDED Status: Active Protocol: Document 09/22/25 14:57 NW (Rec: 09/22/25 15:02 NW [id number]) Subjective Physical Therapy Visit Type Visit Start Time 14:35 Visit Stop Time 14:56 Physical Therapy Visit Comments Patient Comments Pt states he is really tired due to being up and walking with RN to bathroom. Patient Goals Walk again. M4 PT-IP Mobility and Gait Start: 09/03/25 12:04 Freq: NEEDED Status: Active Protocol: Document 09/22/25 14:57 NW (Rec: 09/22/25 15:02 NW [id number]) PT-Bed Mobility Assessment Supine to Sit Supine to Sit Minimal Assistance,Head of Bed Elevated,Bedrails Sit to Supine Sit to Supine Standby Assistance,Bedrails Scooting Scooting Up and Down Standby Assistance in Bed PT-Transfer Assessment Sit to and From Stand Sit to and from Minimal Assistance,1 Person Assistance,Use of Upper Stand Extremities Equipment Transfer Assistive Gait Belt,Front Wheeled Walker Device Transfers Transfer Destination Bed,Chair Transfer Technique Stand Step Pivot Transfer Ability Level of Assist Moderate Assistance,1 Person Assistance,Use of Upper Extremities Comments Mobility Comments Cues for AD management with hand over hand assist at times. Posterior lean notable requiring PT assistance to maintain upright. Poor eccentric control. From EOB CGA with momentum, Liliana from bed michel chair. PT-Balance Assessment Sitting Balance and Reactions Static Sitting Good Balance Ability Dynamic Sitting Fair Balance Ability Standing Balance and Reactions Static Standing Poor Balance Ability Dynamic Standing Poor Balance Ability Device Used FWW Functional Assessments Other Functional Tests Standing tolerance 50-60 seconds with FWW to assist Performed with brief change and clean up. M5 PT-IP Objective Assessments Start: 09/03/25 12:04 Freq: NEEDED Status: Active Protocol: Document 09/13/25 12:06 LRN (Rec: 09/13/25 12:34 LRN Laptop) Orientation Orientation/Cognition Orientation Name Comments Continue to re-orientate M6 PT-IP Treatment Start: 09/03/25 12:04 Freq: NEEDED Status: Active Protocol: Document 09/22/25 14:57 NW (Rec: 09/22/25 15:02 NW [id number]) Physical Therapy Treatment Education Education Provided Safety Other Treatments Other Treatment Continuing to increase time out of bed. Performed M7 PT-IP Assessment and Plan Start: 09/03/25 12:04 Freq: NEEDED Status: Active Protocol: Document 09/22/25 14:57 NW (Rec: 09/22/25 15:02 NW [id number]) PT Summary Assessment and Plan Potential Rehabilitation Fair Potential Status of Condition Evolving at Evaluation Summary Impairments Pain,Strength,Balance,Sensation,Cognition,Bed Mobility, Transfers,Gait,Activity Tolerance Assessment Summary Improved stand pivot transfer with decreased assistance of modA x 1. Continues to fatigue quickly in being able to tolerate 3 STS and stand pivot with varying degree of assistance. Liliana for bed mobility. Pt is waiting for discharge to [facility] with the goals to progress transfers off of vinay. Goals Bed Mobility Goal Independent Transfer Goal Minimal Assistance,Front Wheeled Walker Gait Goal Contact Guard Assistance,Front Wheel Walker Gait Distance 5 Days to Meet Goals 10 Treatment Plan Physical Therapy Bed Mobility Training,Transfer Training,Gait Training, Treatment Plan Therapeutic Exercise,Balance Retraining,Discharge Planning Other FWW for transfers Recommendations and Next Treatment Focus Precautions Other Precautions falls risk Recommendations To Nursing Amount of Assist 2 Person Assist,Total Assistance Needed Discharge Recommendations PT Discharge SNF Rehab Recommendations Other Discharge [facility] with assistance Recommendations - PT assist 1
[2025-09-22 19:46] VITALS: BP 122/74; PULSE 51; RESP 18; TEMP 37.1; O2SAT 97
[2025-09-23 05:43] LABS: Blood Urea Nitrogen 5 mg/dL (9-20); Calcium 7.2 mg/dL (8.4-10.2); Carbon Dioxide 28 mmol/L (22-32); Chloride 100 mmol/L (98-107); Estimated Glomerular Filt Rate > 60 mL/min (>60); Glucose 152 mg/dL (70-99); HEMOLYSIS < 15 (0-50); Magnesium 1.6 mg/dL (1.6-2.3); Potassium 3.4 mmol/L (3.4-5.1); Sodium 133 mmol/L (137-145)
--- NOTE | 2025-09-23 07:59 | CM.DPC ---
DCP Cont. Reviewed EMR and team rounds for pt's med status updates. Called [facility], they will not take pt until Friday, 09/26. Updated family. Will need to send in [employer] form on Friday, and fax [facility] scripts on Friday as well prior to d/c.
--- NOTE | 2025-09-23 08:03 | P.DS_ITS ---
History of Present Illness History of Present Illness Date Patient Seen: 09/23/25 Time Patient Seen: 08:04 Chief complaint: Acute liver failure hepatic encephalopathy alcohol Narrative: Chief complaint: Alcohol withdrawal hepatic encephalopathy Gram-negative zoë sepsis History of present illness: 08/31: 65-year-old male long-term severe alcoholism usually remains isolated was found his son to be in very very poor health looking jaundiced had him brought to the emergency room for evaluation. Past medical history significant for very severe episodes of alcohol withdrawal requiring prolonged intubation for control and cup protection of the airway during sedation at least 4 times Emergency room note: 65-year-old male with a past medical history of alcohol use disorder, pancreatitis, tobacco use who presents to the emergency department with his son for left-sided back pain/concerned for pancreatitis x3 weeks. Patient drinks about a qt of rum a day, last drink was this morning. He has been having pain in the left side of his back that feels similar to pancreatitis pain for the last 3 weeks. He has also been having abdominal bloating. His son convinced him to come to the emergency department today. Patient reports he is not having diarrhea or constipation but does admit to nonbloody vomiting few days ago. Reports tingling in his hands and feet. States he does have a history of withdrawal seizures. He is having pain in the left side of his back with deep breathing. Denies dysuria but reports bloody urine. He denies any prescription medication use, blood thinner use. At the time of my evaluation patient was sedated and not arousable enough to give a history or answer review of systems Findings in the emergency department significant for: Alcohol level 183 Total bili of 10 ammonia of 72 potassium 2.8 sodium 134 lactate of 4.8 initially (2.2 after hydration) PT INR 1.3 PTT 40 platelets 72 Procalcitonin and TSH are and reference range CT of the chest abdomen and pelvis: 1. No acute inflammatory process identified in the abdomen or pelvis. No acute fracture. 2. Diffuse hepatic steatosis. 3. Signs of portal hypertension including small volume of ascites, mild periesophageal varices common recanalized periumbilical vein. 4. Right middle lobe 7 mm pulmonary nodule. Recommend follow-up CT of the chest in 6-12 months. Hospital course: 09/01: Patient is less somnolent today but does not make meaningful verbal responses bilirubin has dropped to 7.8 from 10 pneumonia has dropped from 72-62 potassium was 2.9 09/02: Today patient is less somnolent but still quite confused and somnolent patient appears to have dysphagia bilirubin has de-escalated to 6.5 potassium 3.1 09/03: More alert with improved labs. Weaned phenobarbital. Bili 6.5, NH3 42. 09/05: More alert and most recent Bilirubin is 7.0. AST 97, alk phos 239. Patient and his mother who is POA agreed that other family members could be briefed. Daughter is nurse and granddaughter is a physician. Discussed with his son today. Appropriate for hospice and will need long-term care. Tinea pedis rash to be treated. Minimal swallowing noted by speech therapy. Self feeding very limited noted on OT eval. 09/06: Much more alert and verbally argumentative today. He is demanding to go home but is not capable of understanding his physical limitations. Discussed with son who is present. He is not dropping the food down his shirt today but is still unable to swallow so a modified barium swallow will be done. Ammonia level yesterday was less than 9. 09/07: Wax and waning mental status, not oriented to place or year. Required some Ativan for impulsive behavior. 09/08: He was more alert and interactive. He is oriented to hospital and year today. 09/09: Discharge has been delayed due to his insurance and facility reluctance to accept him due to the psychosocial conditions. He has been able to stand up in the room and walk a little bit with physical therapy. He complains of not being fed on his preferred scheduled. He appears very sleepy. His last labs from 09/04 are reviewed. 09/10: Overnight he reportedly appear to aspirate on lactulose so has been NPO today. We will ask speech therapy to see him again. Began on Lasix yesterday and appears less edematous today. Remains confused and jaundiced. Pizarro catheter has very bilious appearing urine. Potassium 2.9 today, after starting Lasix yesterday, so is receiving supplementation. Discharge has been delayed due to his insurance and facility reluctance to accept him due to the psychosocial conditions. 09/11: White blood count 9.3, hemoglobin 10.4, platelets 109. Sodium 133 potassium 3.2. He will receive additional 40 mEq of IV potassium today. Total bilirubin 6.0. AST 74. He is sleeping/sedated from his Librium during my visit. He continues on dysphagia diet per speech therapy re-evaluation yesterday. The caution was to not give him anything to eat or drink if he is sedated. Hopefully stopping the Librium will help that. 09/12: The patient is much more interactive and alert today (after stopping the Librium). He is asking for a shower. He is talking about his dog at home. Potassium is 2.9. Now that he is swallowing well that will be replaced with oral potassium. He will also be started on spironolactone and the Lasix dose will be decreased. 09/13: Edema seems to have worsened with the decrease of Lasix dose. The potassium continues to run low at 3.1. He is receiving an additional 80 mEq p.o. today. The magnesium level is 1.5 so that will be addressed. The hemoglobin has dropped from 10.4 down to 9.5. The platelets have dropped to 99. I called and spoke with his mother about the lack of discharge options as multiple long-term facilities have declined. She is coming [place] from [place] of [place] and is going to ask for assistance finding caregivers for him at his home. 09/14: Per further discussions with social service/menu planner and his mother we are pivoting to a target of adult family home discharge. Today he is alert and conversant without significant agitation. He is looking forward to a shower. The hemoglobin continues to drop slowly, now down to 9.0. Check B12, folate and iron. His edema seems to have increased so the Lasix dose will be increased back up to 40 mg. The flaking rash on his feet has returned so we will change the topical treatment to nystatin. We will also remove the Pizarro catheter today. His urine continues to be very bilious 09/15: The foot rash does not appear to be responding to tinea treatment so we will treat for eczema with triamcinolone cream. He is feeding himself breakfast today. His mother is working on evaluating several potential adult family homes for him to discharge there soon. He says he is walking with a walker but PT assures me that with a walker he is only able to stand and move slightly sideways so far. His edema appears to be worse. That is likely related to increased oral fluid and dietary salt intake. He is already on Lasix and spironolactone. The hemoglobin has risen to 9.6 today. The sodium is 131 with a potassium of 3.8. The iron level is 106 with a B12 greater than 1000 and a folate of 5.5. 09/16: Hemoglobin drifted back down to 9.0 today. Potassium is 3.4. He continues with significant peripheral edema. He is asleep during my visit today. His mother is looking at/touring adult family homes so discharge plans are steadily coming together. 09/17: He has no complaints. He is alert, appropriate and states no pain or discomfort. He has been up walking with physical therapy. He states that he is ?done with alcohol?. He plans to go to an adult family home in [place] pending final arrangements. He had a 2 L diuresis yesterday and states edema has improved. 09/19: The patient began having fevers ranging from 120.2 to 103.1. He meets SIRS criteria based on tachycardia to 120, tachypnea to 40, hypoxia now requiring 3 L, and fever. This was a significant change in his condition from the day prior. Exam was nonfocal, Abdomen is benign and not consistent with significant ascites. Review of prior imaging shows only minimal ascites. There was not enough fluid to safely perform paracentesis. Labs were sent and demonstrated a new leukocytosis at 17.8, grossly abnormal urine and blood cultures this morning are 2/2 bottles positive for Gram-negative bacilli 09/21: Continuing to improve no fevers in the last 24 hours vital signs stable patient without complaints blood culture positive for E coli pansensitive likely from spontaneous bacterial peritonitis 09/22: Continuing to improve no further fevers 09/23: No further fevers robust appetite Review of systems: No fever or chills rigors No chest pain palpitations shortness for breath No abdominal pain nausea vomiting Physical exam: NAD, alert, somewhat jaundiced some scleral icterus. Lungs are clear, normal rate and effort. Heart is regular, no murmur gallop or rub. Abdomen is soft, less distended. Extremities 1-2+ bilateral pitting edema Flaking rash on both feet recurring Pizarro has been removed . Escherichia coli M.I.C. RX --------- --- * Amoxicillin/Clavulanate 16 I * Ampicillin >=32 R * Ampicillin/Sulbactam 16 I * Aztreonam <=1 S * Cefepime E-test S * Ceftazidime <=0.5 S * Ceftriaxone <=0.25 S * Cefuroxime 4 S * Ciprofloxacin 0.5 I * Ertapenem <=0.12 S * Gentamicin <=1 S * Levofloxacin 1 I * Meropenem <=0.25 S * Tetracycline >=16 R * Trimethoprim/Sulfamethoxazole <=20 S Assessment and plan: E coli bacteremia 09/19 likely source spontaneous bacterial peritonitis * Repeat blood cultures no reported organisms on Gram stain so far * Last dose of ceftriaxone 09/23 Liver disease d/t etoh +/- hepatic steatosis Acute alcohol withdrawal, resolved Hepatic encephalopathy, resolved Thrombocytopenia Imaging shows diffuse steatosis but not cirrhosis. Meld-Na score is 21 indicative of a 19% three month mortality. * Continue lactulose * Continue spironolactone and Lasix * Continue lorazepam as needed * Contain labetalol for portal hypertension to decrease the risk of bleeding. 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 * Monitor platelets in the setting of DVT prophylaxis Severe protein calorie malnutrition Debilitation/weakness * Encourage p.o. intake with adequate protein * Continue dysphagia diet per speech therapy * Continue PT and OT Pseudohyponatremia Sodium was as low as 129 earlier in the hospital stay. However corrected sodium based on an albumin of 2.2 is approximately 133 * CTM prn Hypokalemia, resolved Hypomagnesemia Sodium was as low as 3.1 and magnesium 1.5 at presentation. Hypokalemia has resolved. Magnesium was low again yesterday and patient received 2 g of magnesium sulfate IV. Magnesium today is barely normal at 1.6. * Initiate magnesium oxide b.i.d. * Continue to monitor as needed Dermatitis, bilateral feet Patient did not respond to treatment for tinea pedis. On 09/15, clotrimazole change to nystatin and triamcinolone cream added. * Continue current management Code Status: DNR-patient was previously limited code. I discussed this with his mother and sister on 09/19. Decision was made to transition to DNR. They note that the limited code was only in place for the period of time when he was withdrawing from alcohol in cases airway needed to be protected. Diet: Dysphagia Lines/Tubes: PIV, pure wick DVT Prophylaxis: Enoxaparin 40 mg subQ daily Disposition: * Discharge to [facility] today versus when 1st available * Preliminary 2nd set of blood cultures without signs of heavy bacteremia final culture is pending patient is not demonstrating any signs of sepsis at this time Time based billing: * 35 minutes were involved in evaluation of the patient including [id number] evaluation physical examination and discussion with care management team Discharge Providers Provider Date of admission: 08/31/25 15:30 Discharge Date: 09/23/25 Primary care physician: Rocío Roberts DO Consults: 08/31/25 18:13 Consult to Dietitian, Adult Routine Comment: Reason For Exam: Malnutrition severe 09/02/25 10:18 Consult to Speech Therapy Evaluate & Treat Comment: Physician Instructions: Evaluate and treat 09/03/25 10:15 Consult to Occupational Therapy Evaluate & Treat Comment: Physician Instructions: Evaluate and treat Consult to Physical Therapy Evaluate & Treat Comment: Physician Instructions: Evaluate and Treat 09/06/25 09:43 Consult to Dietitian, Adult Routine Comment: Reason For Exam: NPO status 09/10/25 16:00 Consult to Speech Therapy Evaluate & Treat Comment: Physician Instructions: Evaluate and treat 09/12/25 12:03 Consult to Pharmacy Routine Comment: fall risk 09/23/25 07:49 Consult to Home Health Routine Comment: PT, OT, Bath Aide Reason For Exam: Home Health Services Discharge provider: Foster Lua MD Exam Vital Signs (past 8 hours): Fraction of Inspired Oxygen 32 SaO2/FiO2 Ratio 296 Oxygen Delivery Method Room Air Oxygen Flow Rate 0 Objective Labs 09/21/25 06:15 09/23/25 04:54 Labs: Laboratory Results - last 24 hr 09/23/25 04:54 Sodium 133 L Potassium 3.4 Chloride 100 Carbon Dioxide 28 BUN 5 L Creatinine 0.46 L Estimated GFR > 60 BUN/Creatinine Ratio 10.9 Glucose 152 H Calcium 7.2 L Magnesium 1.6 PFSH Medical History Tobacco dependence Alcohol use disorder, moderate, dependence Fentanyl use disorder, mild, abuse Seizures Amputation finger Onychomycosis Chronic pancreatitis Alcoholic pancreatitis Fracture of finger, distal phalanx, open Fracture of finger, middle phalanx, open Alcohol abuse Back pain Surgical History History of surgical amputation of finger Family History Mother Osteoarthritis Father Alcohol abuse Medical history unknown Social History household members: none alcohol intake: current substance use type: marijuana Discharge Plan Discharge Plan Patient Disposition: Assisted Living Discharge orders & Medications Discharge Orders: Discharge (Order); Ordered 09/23/25 Ordered By: Foster Lua Prescriptions: New furosemide 40 mg Tablet 40 mg PO DAILY Qty: 90 0RF clonidine HCl 0.1 mg Tablet 0.1 mg PO BID Qty: 180 0RF magnesium oxide 400 mg (241.3 mg magnesium) Tablet 400 mg PO BID Qty: 180 0RF folic acid 1 mg Tablet 1 mg PO DAILY Qty: 90 0RF lactulose 10 gram/15 mL Solution 20 gm PO TID Qty: 2000 0RF multivitamin with folic acid [Tab-A-Andrae] 400 mcg Tablet 1 tab PO DAILY Qty: 90 0RF nicotine 14 mg/24 hr Patch 24 Hour 14 mg topical DAILY Qty: 10 0RF triamcinolone acetonide 0.5 % Cream 1 applic topical BID PRN (Reason: Rash) Qty: 60 0RF spironolactone 25 mg Tablet 25 mg PO DAILY Qty: 90 0RF propranolol 10 mg Tablet 10 mg PO BID Qty: 180 0RF nystatin 100,000 unit/gram Cream 1 applic topical TID Qty: 60 0RF cefdinir 300 mg capsule 300 mg PO BID Qty: 10 0RF Follow up/Referrals: Rocío Roberts DO [Primary Care Provider, Family Practice] Visit Report/Discharge Packet Stand Alone Forms: [employer], Patient Portal/API, Stroke Signs & Symptoms, Influenza Vaccine Info, Notice of Privacy Practices, Inpatient vs Outpatient, Pneumococcal Vaccine Info, Pt. Rights & Responsibilities Discharge Data Primary Care Provider: Rocío Roberts Quality VTE Deep Vein Thrombosis/Pulmonary Embolism Present on Admission: No
[2025-09-23 08:50] VITALS: BP 104/65; PULSE 61; RESP 14; TEMP 36.5; O2SAT 96
[2025-09-23] MEDS: ENOXAPARIN 40 MG/0.4 ML SYRINGE SUBCUT (08:55)
[2025-09-23] MEDS: cefTRIAXone 2,000 MG in SODIUM CHLORIDE 0.9% 100 ML 200 MG IV (08:55)
[2025-09-23] MEDS: MULTIVITAMIN 1 TABLET 1 TAB PO (08:56)
[2025-09-23] MEDS: PROPRANOLOL 10 MG TABLET PO ×2 (08:56→20:38)
[2025-09-23] MEDS: FUROSEMIDE 40 MG TABLET PO (08:56)
[2025-09-23] MEDS: MAGNESIUM OXIDE 400 MG TABLET PO ×2 (08:56→20:37)
[2025-09-23] MEDS: SPIRONOLACTONE 25 MG TABLET PO (08:56)
[2025-09-23] MEDS: FOLIC ACID 1 MG TABLET PO (08:56)
[2025-09-23] MEDS: NICOTINE 14 PATCH 14 MG TOP (08:57)
[2025-09-23] MEDS: NYSTATIN CREAM 30 GM 1 APPLIC TOP ×2 (08:58→15:23)
[2025-09-23] MEDS: POTASSIUM CHLORIDE 20 MEQ TAB 40 MEQ PO (09:00)
[2025-09-23] MEDS: MAGNESIUM CHLORIDE 64 MG TABLET 128 MG PO (09:00)
[2025-09-23] MEDS: SODIUM CHLORIDE 0.9% FLUSH 10 ML IV ×2 (09:00→20:37)
--- NOTE | 2025-09-23 09:39 | DIET.PN1 ---
Dietary Progress Note Assessment: f/u Average PO intakes recorded in last 4 days: >70%. DFM reviewed for meal composition. More variable PO intakes, 50-100% recently. Will continue to monitor. Ht: 165.1 cm Wt: 70 kg BMI: 25.7 UBW: Last BM: 09/22/25 (09/22/25 22:00) MNA: 10 Junior Score: 18 Diet: 09/11/25 Breakfast Dysphagia Diet Diet Modifications: Hold intake if not awake/alert, 1:1, no straws Food Texture: Level 6-Soft & Bite-sized Liquid Consistency: Level 0 - Thin Nutrition Percent Meal Consumed 100% 09/23/25 08:58 Percent Meal Consumed 50% 09/22/25 17:36 Percent Meal Consumed 75% 09/22/25 08:56 Percent Meal Consumed 45 09/21/25 18:00 Labs: RBC 2.48 X10^6/uL (4.5-5.9) L 09/21/25 06:15 Hgb 9.3 g/dL (13.5-17.5) L 09/21/25 06:15 Hct 26.7 % (41-53) L 09/21/25 06:15 Creatinine 0.46 mg/dL (0.66-1.25) L 09/23/25 04:54 Lactate 1.9 mmol/L (0.7-2.1) 09/19/25 07:45 Iron 106 ug/dL (49-181) 09/14/25 06:11 % Saturation 73 % (20-50) H 09/14/25 06:11 Electronically Signed by: Anitra Hardin 09/23/25 09:39 Clinical Dietitian [address] [address]
--- NOTE | 2025-09-23 14:31 | OT.IPNOTE ---
Pt was reclined in bed on entrance of OT. Pt was alert and oriented. OT encouraged pt to participate in ADLs and to get to the recliner. Pt stated I have another plan, I'm going to sleep. Pt stated I just can't do it right now. Pt left reclined in bed with needs met and nsg notified.
--- NOTE | 2025-09-23 15:11 | PT-IP ANOTE ---
Alvin declined physical therapy today, commented he is going to another place Friday, and he does enough around here.
[2025-09-23 20:00] VITALS: BP 135/76; PULSE 62; RESP 20; TEMP 36.8; O2SAT 98
[2025-09-24 05:38] LABS: Blood Urea Nitrogen 5 mg/dL (9-20); Calcium 7.5 mg/dL (8.4-10.2); Carbon Dioxide 29 mmol/L (22-32); Chloride 100 mmol/L (98-107); Estimated Glomerular Filt Rate > 60 mL/min (>60); Glucose 121 mg/dL (70-99); HEMOLYSIS < 15 (0-50); Magnesium 1.5 mg/dL (1.6-2.3); Potassium 3.7 mmol/L (3.4-5.1); Sodium 132 mmol/L (137-145)
[2025-09-24] MEDS: ENOXAPARIN 40 MG/0.4 ML SYRINGE SUBCUT (08:16)
[2025-09-24] MEDS: cefTRIAXone 2,000 MG in SODIUM CHLORIDE 0.9% 100 ML 200 MG IV (08:16)
[2025-09-24] MEDS: NICOTINE 14 PATCH 14 MG TOP (08:16)
[2025-09-24] MEDS: FUROSEMIDE 40 MG TABLET PO (08:17)
[2025-09-24] MEDS: FOLIC ACID 1 MG TABLET PO (08:17)
[2025-09-24] MEDS: MAGNESIUM CHLORIDE 64 MG TABLET 128 MG PO (08:17)
[2025-09-24] MEDS: MULTIVITAMIN 1 TABLET 1 TAB PO (08:17)
[2025-09-24] MEDS: SPIRONOLACTONE 25 MG TABLET PO (08:17)
[2025-09-24] MEDS: MAGNESIUM OXIDE 400 MG TABLET PO ×2 (08:17→21:44)
[2025-09-24] MEDS: PROPRANOLOL 10 MG TABLET PO ×2 (08:17→21:44)
[2025-09-24] MEDS: NYSTATIN CREAM 30 GM 1 APPLIC TOP ×3 (08:19→21:46)
[2025-09-24] MEDS: SODIUM CHLORIDE 0.9% FLUSH 10 ML IV ×2 (08:19→21:46)
[2025-09-24 08:47] VITALS: BP 103/65; PULSE 59; RESP 15; TEMP 36.4; O2SAT 97
--- NOTE | 2025-09-24 16:37 | P.PN_ITS ---
Subjective Subjective Date Patient Seen: 09/24/25 Time Patient Seen: 16:37 Interval history: Chief complaint: Alcohol withdrawal hepatic encephalopathy Gram-negative zoë sepsis History of present illness: 08/31: 65-year-old male long-term severe alcoholism usually remains isolated was found his son to be in very very poor health looking jaundiced had him brought to the emergency room for evaluation. Past medical history significant for very severe episodes of alcohol withdrawal requiring prolonged intubation for control and cup protection of the airway during sedation at least 4 times Emergency room note: 65-year-old male with a past medical history of alcohol use disorder, pancreatitis, tobacco use who presents to the emergency department with his son for left-sided back pain/concerned for pancreatitis x3 weeks. Patient drinks about a qt of rum a day, last drink was this morning. He has been having pain in the left side of his back that feels similar to pancreatitis pain for the last 3 weeks. He has also been having abdominal bloating. His son convinced him to come to the emergency department today. Patient reports he is not having diarrhea or constipation but does admit to nonbloody vomiting few days ago. Reports tingling in his hands and feet. States he does have a history of withdrawal seizures. He is having pain in the left side of his back with deep breathing. Denies dysuria but reports bloody urine. He denies any prescription medication use, blood thinner use. At the time of my evaluation patient was sedated and not arousable enough to give a history or answer review of systems Findings in the emergency department significant for: Alcohol level 183 Total bili of 10 ammonia of 72 potassium 2.8 sodium 134 lactate of 4.8 initially (2.2 after hydration) PT INR 1.3 PTT 40 platelets 72 Procalcitonin and TSH are and reference range CT of the chest abdomen and pelvis: 1. No acute inflammatory process identified in the abdomen or pelvis. No acute fracture. 2. Diffuse hepatic steatosis. 3. Signs of portal hypertension including small volume of ascites, mild periesophageal varices common recanalized periumbilical vein. 4. Right middle lobe 7 mm pulmonary nodule. Recommend follow-up CT of the chest in 6-12 months. Hospital course: 09/01: Patient is less somnolent today but does not make meaningful verbal responses bilirubin has dropped to 7.8 from 10 pneumonia has dropped from 72-62 potassium was 2.9 09/02: Today patient is less somnolent but still quite confused and somnolent patient appears to have dysphagia bilirubin has de-escalated to 6.5 potassium 3.1 09/03: More alert with improved labs. Weaned phenobarbital. Bili 6.5, NH3 42. 09/05: More alert and most recent Bilirubin is 7.0. AST 97, alk phos 239. Patient and his mother who is POA agreed that other family members could be briefed. Daughter is nurse and granddaughter is a physician. Discussed with his son today. Appropriate for hospice and will need chcf care. Tinea pedis rash to be treated. Minimal swallowing noted by speech therapy. Self feeding very limited noted on OT eval. 09/06: Much more alert and verbally argumentative today. He is demanding to go home but is not capable of understanding his physical limitations. Discussed with son who is present. He is not dropping the food down his shirt today but is still unable to swallow so a modified barium swallow will be done. Ammonia level yesterday was less than 9. 09/07: Wax and waning mental status, not oriented to place or year. Required some Ativan for impulsive behavior. 09/08: He was more alert and interactive. He is oriented to hospital and year today. 09/09: Discharge has been delayed due to his insurance and facility reluctance to accept him due to the psychosocial conditions. He has been able to stand up in the room and walk a little bit with physical therapy. He complains of not being fed on his preferred scheduled. He appears very sleepy. His last labs from 09/04 are reviewed. 09/10: Overnight he reportedly appear to aspirate on lactulose so has been NPO today. We will ask speech therapy to see him again. Began on Lasix yesterday and appears less edematous today. Remains confused and jaundiced. Pizarro catheter has very bilious appearing urine. Potassium 2.9 today, after starting Lasix yesterday, so is receiving supplementation. Discharge has been delayed due to his insurance and facility reluctance to accept him due to the psychosocial conditions. 09/11: White blood count 9.3, hemoglobin 10.4, platelets 109. Sodium 133 potassium 3.2. He will receive additional 40 mEq of IV potassium today. Total bilirubin 6.0. AST 74. He is sleeping/sedated from his Librium during my visit. He continues on dysphagia diet per speech therapy re-evaluation yesterday. The caution was to not give him anything to eat or drink if he is sedated. Hopefully stopping the Librium will help that. 09/12: The patient is much more interactive and alert today (after stopping the Librium). He is asking for a shower. He is talking about his dog at home. Potassium is 2.9. Now that he is swallowing well that will be replaced with oral potassium. He will also be started on spironolactone and the Lasix dose will be decreased. 09/13: Edema seems to have worsened with the decrease of Lasix dose. The potassium continues to run low at 3.1. He is receiving an additional 80 mEq p.o. today. The magnesium level is 1.5 so that will be addressed. The hemoglobin has dropped from 10.4 down to 9.5. The platelets have dropped to 99. I called and spoke with his mother about the lack of discharge options as multiple chcf facilities have declined. She is coming [place] from [place] of [place] and is going to ask for assistance finding caregivers for him at his home. 09/14: Per further discussions with social service/digital sales planner and his mother we are pivoting to a target of adult family home discharge. Today he is alert and conversant without significant agitation. He is looking forward to a shower. The hemoglobin continues to drop slowly, now down to 9.0. Check B12, folate and iron. His edema seems to have increased so the Lasix dose will be increased back up to 40 mg. The flaking rash on his feet has returned so we will change the topical treatment to nystatin. We will also remove the Pizarro catheter today. His urine continues to be very bilious 09/15: The foot rash does not appear to be responding to tinea treatment so we will treat for eczema with triamcinolone cream. He is feeding himself breakfast today. His mother is working on evaluating several potential adult family homes for him to discharge there soon. He says he is walking with a walker but PT assures me that with a walker he is only able to stand and move slightly sideways so far. His edema appears to be worse. That is likely related to increased oral fluid and dietary salt intake. He is already on Lasix and spironolactone. The hemoglobin has risen to 9.6 today. The sodium is 131 with a potassium of 3.8. The iron level is 106 with a B12 greater than 1000 and a folate of 5.5. 09/16: Hemoglobin drifted back down to 9.0 today. Potassium is 3.4. He continues with significant peripheral edema. He is asleep during my visit today. His mother is looking at/touring adult family homes so discharge plans are steadily coming together. 09/17: He has no complaints. He is alert, appropriate and states no pain or discomfort. He has been up walking with physical therapy. He states that he is ?done with alcohol?. He plans to go to an adult family home in [place] pending final arrangements. He had a 2 L diuresis yesterday and states edema has improved. 09/19: The patient began having fevers ranging from 120.2 to 103.1. He meets SIRS criteria based on tachycardia to 120, tachypnea to 40, hypoxia now requiring 3 L, and fever. This was a significant change in his condition from the day prior. Exam was nonfocal, Abdomen is benign and not consistent with significant ascites. Review of prior imaging shows only minimal ascites. There was not enough fluid to safely perform paracentesis. Labs were sent and demonstrated a new leukocytosis at 17.8, grossly abnormal urine and blood cultures this morning are 2/2 bottles positive for Gram-negative bacilli 09/21: Continuing to improve no fevers in the last 24 hours vital signs stable patient without complaints blood culture positive for E coli pansensitive likely from spontaneous bacterial peritonitis 09/22: Continuing to improve no further fevers 09/23: No further fevers 09/24: No further complaints no growth in 2nd blood culture can discontinue IV antibiotics Review of systems: No fever or chills rigors No chest pain palpitations shortness for breath No abdominal pain nausea vomiting Physical exam: NAD, alert, deeply jaundiced, scleral icterus. Lungs are clear, normal rate and effort. Heart is regular, no murmur gallop or rub. Abdomen is soft, less distended. Extremities 1-2+ bilateral pitting edema Flaking rash on both feet recurring Pizarro has been removed . Escherichia coli M.I.C. RX --------- --- * Amoxicillin/Clavulanate 16 I * Ampicillin >=32 R * Ampicillin/Sulbactam 16 I * Aztreonam <=1 S * Cefepime E-test S * Ceftazidime <=0.5 S * Ceftriaxone <=0.25 S * Cefuroxime 4 S * Ciprofloxacin 0.5 I * Ertapenem <=0.12 S * Gentamicin <=1 S * Levofloxacin 1 I * Meropenem <=0.25 S * Tetracycline >=16 R * Trimethoprim/Sulfamethoxazole <=20 S Assessment and plan: E coli bacteremia 09/19 likely source spontaneous bacterial peritonitis * Repeat blood cultures today * Last dose of ceftriaxone 09/23 Liver disease d/t etoh +/- hepatic steatosis Acute alcohol withdrawal, resolved Hepatic encephalopathy, resolved Thrombocytopenia Imaging shows diffuse steatosis but not cirrhosis. Meld-Na score is 21 indicative of a 19% three month mortality. * Continue lactulose * Continue spironolactone and Lasix * Continue lorazepam as needed * Contain labetalol for portal hypertension to decrease the risk of bleeding. 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 * Monitor platelets in the setting of DVT prophylaxis Severe protein calorie malnutrition Debilitation/weakness * Encourage p.o. intake with adequate protein * Continue dysphagia diet per speech therapy * Continue PT and OT Pseudohyponatremia Sodium was as low as 129 earlier in the hospital stay. However corrected sodium based on an albumin of 2.2 is approximately 133 * CTM prn Hypokalemia, resolved Hypomagnesemia Sodium was as low as 3.1 and magnesium 1.5 at presentation. Hypokalemia has resolved. Magnesium was low again yesterday and patient received 2 g of magnesium sulfate IV. Magnesium today is barely normal at 1.6. * Initiate magnesium oxide b.i.d. * Continue to monitor as needed Dermatitis, bilateral feet Patient did not respond to treatment for tinea pedis. On 09/15, clotrimazole change to nystatin and triamcinolone cream added. * Continue current management Code Status: DNR-patient was previously limited code. I discussed this with his mother and sister on 09/19. Decision was made to transition to DNR. They note that the limited code was only in place for the period of time when he was withdrawing from alcohol in cases airway needed to be protected. Diet: Dysphagia Lines/Tubes: PIV, pure wick DVT Prophylaxis: Enoxaparin 40 mg subQ daily Discharge Planning: Patient is not medically ready for discharge given new bacteremia. He is too weak for discharge to home and will need a higher level of care. Anticipate discharge in 3-4. Time based billing: * 35 minutes were involved in evaluation of the patient including [id number] evaluation physical examination and discussion with care management team Exam Vital Signs (past 8 hours): - 09/24/25 08:47 Temperature 97.5 F L Pulse Rate 59 L Respiratory Rate 15 Blood Pressure 103/65 Pulse Oximetry 97 Oxygen Flow Rate 0 Fraction of Inspired Oxygen 32 SaO2/FiO2 Ratio 296 Oxygen Delivery Method Room Air Oxygen Flow Rate 0 Objective Labs 09/21/25 06:15 09/24/25 05:10 Labs: Laboratory Results - last 24 hr 09/24/25 05:10 Sodium 132 L Potassium 3.7 Chloride 100 Carbon Dioxide 29 BUN 5 L Creatinine 0.46 L Estimated GFR > 60 BUN/Creatinine Ratio 10.9 Glucose 121 H Calcium 7.5 L Magnesium 1.5 L PFSH Medical History Tobacco dependence Alcohol use disorder, moderate, dependence Fentanyl use disorder, mild, abuse Seizures Amputation finger Onychomycosis Chronic pancreatitis Alcoholic pancreatitis Fracture of finger, distal phalanx, open Fracture of finger, middle phalanx, open Alcohol abuse Back pain Surgical History History of surgical amputation of finger Family History Mother Osteoarthritis Father Alcohol abuse Medical history unknown Social History household members: none alcohol intake: current substance use type: marijuana Assessment & Plan Time-Based Coding :: [TOTAL MINUTES] spent with patient and on the chart (including review of chart, obtaining history, exam, reviewing outside data, placing orders, documenting exam and treatment plan, and counseling patient) on [DATE]. Quality VTE Deep Vein Thrombosis/Pulmonary Embolism Present on Admission: No
[2025-09-24 20:00] VITALS: BP 126/72; PULSE 53; RESP 20; TEMP 36.7; O2SAT 100
[2025-09-24 21:44] VITALS: BP 128/74; PULSE 64
[2025-09-25 08:00] VITALS: BP 141/84; PULSE 54; RESP 16; TEMP 36.4; O2SAT 96
[2025-09-25] MEDS: cefTRIAXone 2,000 MG in SODIUM CHLORIDE 0.9% 100 ML 200 MG IV (08:02)
[2025-09-25] MEDS: NICOTINE 14 PATCH 14 MG TOP (08:10)
[2025-09-25] MEDS: MAGNESIUM OXIDE 400 MG TABLET PO ×2 (08:10→19:50)
[2025-09-25] MEDS: SPIRONOLACTONE 25 MG TABLET PO (08:10)
[2025-09-25] MEDS: PROPRANOLOL 10 MG TABLET PO ×2 (08:11→19:51)
[2025-09-25] MEDS: ENOXAPARIN 40 MG/0.4 ML SYRINGE SUBCUT (08:11)
[2025-09-25] MEDS: MULTIVITAMIN 1 TABLET 1 TAB PO (08:11)
[2025-09-25] MEDS: FOLIC ACID 1 MG TABLET PO (08:11)
[2025-09-25] MEDS: FUROSEMIDE 40 MG TABLET PO (08:11)
[2025-09-25] MEDS: LACTULOSE 20 GM/30 ML SOLUTION PO ×2 (08:12→19:50)
[2025-09-25] MEDS: NYSTATIN CREAM 30 GM 1 APPLIC TOP ×3 (08:16→19:54)
[2025-09-25] MEDS: SODIUM CHLORIDE 0.9% FLUSH 10 ML IV (08:16)
--- NOTE | 2025-09-25 08:28 | P.PN_ITS ---
Subjective Subjective Date Patient Seen: 09/25/25 Time Patient Seen: 08:28 Interval history: Chief complaint: Alcohol withdrawal hepatic encephalopathy Gram-negative zoë sepsis History of present illness: 08/31: 65-year-old male long-term severe alcoholism usually remains isolated was found his son to be in very very poor health looking jaundiced had him brought to the emergency room for evaluation. Past medical history significant for very severe episodes of alcohol withdrawal requiring prolonged intubation for control and cup protection of the airway during sedation at least 4 times Emergency room note: 65-year-old male with a past medical history of alcohol use disorder, pancreatitis, tobacco use who presents to the emergency department with his son for left-sided back pain/concerned for pancreatitis x3 weeks. Patient drinks about a qt of rum a day, last drink was this morning. He has been having pain in the left side of his back that feels similar to pancreatitis pain for the last 3 weeks. He has also been having abdominal bloating. His son convinced him to come to the emergency department today. Patient reports he is not having diarrhea or constipation but does admit to nonbloody vomiting few days ago. Reports tingling in his hands and feet. States he does have a history of withdrawal seizures. He is having pain in the left side of his back with deep breathing. Denies dysuria but reports bloody urine. He denies any prescription medication use, blood thinner use. At the time of my evaluation patient was sedated and not arousable enough to give a history or answer review of systems Findings in the emergency department significant for: Alcohol level 183 Total bili of 10 ammonia of 72 potassium 2.8 sodium 134 lactate of 4.8 initially (2.2 after hydration) PT INR 1.3 PTT 40 platelets 72 Procalcitonin and TSH are and reference range CT of the chest abdomen and pelvis: 1. No acute inflammatory process identified in the abdomen or pelvis. No acute fracture. 2. Diffuse hepatic steatosis. 3. Signs of portal hypertension including small volume of ascites, mild periesophageal varices common recanalized periumbilical vein. 4. Right middle lobe 7 mm pulmonary nodule. Recommend follow-up CT of the chest in 6-12 months. Hospital course: 09/01: Patient is less somnolent today but does not make meaningful verbal responses bilirubin has dropped to 7.8 from 10 pneumonia has dropped from 72-62 potassium was 2.9 09/02: Today patient is less somnolent but still quite confused and somnolent patient appears to have dysphagia bilirubin has de-escalated to 6.5 potassium 3.1 09/03: More alert with improved labs. Weaned phenobarbital. Bili 6.5, NH3 42. 09/05: More alert and most recent Bilirubin is 7.0. AST 97, alk phos 239. Patient and his mother who is POA agreed that other family members could be briefed. Daughter is nurse and granddaughter is a physician. Discussed with his son today. Appropriate for hospice and will need shelter care. Tinea pedis rash to be treated. Minimal swallowing noted by speech therapy. Self feeding very limited noted on OT eval. 09/06: Much more alert and verbally argumentative today. He is demanding to go home but is not capable of understanding his physical limitations. Discussed with son who is present. He is not dropping the food down his shirt today but is still unable to swallow so a modified barium swallow will be done. Ammonia level yesterday was less than 9. 09/07: Wax and waning mental status, not oriented to place or year. Required some Ativan for impulsive behavior. 09/08: He was more alert and interactive. He is oriented to hospital and year today. 09/09: Discharge has been delayed due to his insurance and facility reluctance to accept him due to the psychosocial conditions. He has been able to stand up in the room and walk a little bit with physical therapy. He complains of not being fed on his preferred scheduled. He appears very sleepy. His last labs from 09/04 are reviewed. 09/10: Overnight he reportedly appear to aspirate on lactulose so has been NPO today. We will ask speech therapy to see him again. Began on Lasix yesterday and appears less edematous today. Remains confused and jaundiced. Pizarro catheter has very bilious appearing urine. Potassium 2.9 today, after starting Lasix yesterday, so is receiving supplementation. Discharge has been delayed due to his insurance and facility reluctance to accept him due to the psychosocial conditions. 09/11: White blood count 9.3, hemoglobin 10.4, platelets 109. Sodium 133 potassium 3.2. He will receive additional 40 mEq of IV potassium today. Total bilirubin 6.0. AST 74. He is sleeping/sedated from his Librium during my visit. He continues on dysphagia diet per speech therapy re-evaluation yesterday. The caution was to not give him anything to eat or drink if he is sedated. Hopefully stopping the Librium will help that. 09/12: The patient is much more interactive and alert today (after stopping the Librium). He is asking for a shower. He is talking about his dog at home. Potassium is 2.9. Now that he is swallowing well that will be replaced with oral potassium. He will also be started on spironolactone and the Lasix dose will be decreased. 09/13: Edema seems to have worsened with the decrease of Lasix dose. The potassium continues to run low at 3.1. He is receiving an additional 80 mEq p.o. today. The magnesium level is 1.5 so that will be addressed. The hemoglobin has dropped from 10.4 down to 9.5. The platelets have dropped to 99. I called and spoke with his mother about the lack of discharge options as multiple shelter facilities have declined. She is coming [place] from out of [place] and is going to ask for assistance finding caregivers for him at his home. 09/14: Per further discussions with social service/media planner and his mother we are pivoting to a target of adult family home discharge. Today he is alert and conversant without significant agitation. He is looking forward to a shower. The hemoglobin continues to drop slowly, now down to 9.0. Check B12, folate and iron. His edema seems to have increased so the Lasix dose will be increased back up to 40 mg. The flaking rash on his feet has returned so we will change the topical treatment to nystatin. We will also remove the Pizarro catheter today. His urine continues to be very bilious 09/15: The foot rash does not appear to be responding to tinea treatment so we will treat for eczema with triamcinolone cream. He is feeding himself breakfast today. His mother is working on evaluating several potential adult family homes for him to discharge there soon. He says he is walking with a walker but PT assures me that with a walker he is only able to stand and move slightly sideways so far. His edema appears to be worse. That is likely related to increased oral fluid and dietary salt intake. He is already on Lasix and spironolactone. The hemoglobin has risen to 9.6 today. The sodium is 131 with a potassium of 3.8. The iron level is 106 with a B12 greater than 1000 and a folate of 5.5. 09/16: Hemoglobin drifted back down to 9.0 today. Potassium is 3.4. He continues with significant peripheral edema. He is asleep during my visit today. His mother is looking at/touring adult family homes so discharge plans are steadily coming together. 09/17: He has no complaints. He is alert, appropriate and states no pain or discomfort. He has been up walking with physical therapy. He states that he is ?done with alcohol?. He plans to go to an adult family home in [place] pending final arrangements. He had a 2 L diuresis yesterday and states edema has improved. 09/19: The patient began having fevers ranging from 120.2 to 103.1. He meets SIRS criteria based on tachycardia to 120, tachypnea to 40, hypoxia now requiring 3 L, and fever. This was a significant change in his condition from the day prior. Exam was nonfocal, Abdomen is benign and not consistent with significant ascites. Review of prior imaging shows only minimal ascites. There was not enough fluid to safely perform paracentesis. Labs were sent and demonstrated a new leukocytosis at 17.8, grossly abnormal urine and blood cultures this morning are 2/2 bottles positive for Gram-negative bacilli 09/21: Continuing to improve no fevers in the last 24 hours vital signs stable patient without complaints blood culture positive for E coli pansensitive likely from spontaneous bacterial peritonitis 09/22: Continuing to improve no further fevers 09/23: No further fevers 09/24: No further complaints no growth in 2nd blood culture can discontinue IV antibiotics 09/25: IV antibiotics are completed for E coli bacteremia likely source is spontaneous bacterial peritonitis from cirrhosis with ascites 2nd blood culture is no growth deescalate to cefdinir 300 mg p.o. b.i.d. last dose on FridayOctober 29 Review of systems: No fever or chills rigors No chest pain palpitations shortness for breath No abdominal pain nausea vomiting Physical exam: NAD, alert, deeply jaundiced, scleral icterus. Lungs are clear, normal rate and effort. Heart is regular, no murmur gallop or rub. Abdomen is soft, less distended. Extremities 1-2+ bilateral pitting edema Flaking rash on both feet recurring Pizarro has been removed . Escherichia coli M.I.C. RX --------- --- * Amoxicillin/Clavulanate 16 I * Ampicillin >=32 R * Ampicillin/Sulbactam 16 I * Aztreonam <=1 S * Cefepime E-test S * Ceftazidime <=0.5 S * Ceftriaxone <=0.25 S * Cefuroxime 4 S * Ciprofloxacin 0.5 I * Ertapenem <=0.12 S * Gentamicin <=1 S * Levofloxacin 1 I * Meropenem <=0.25 S * Tetracycline >=16 R * Trimethoprim/Sulfamethoxazole <=20 S Assessment and plan: E coli bacteremia 09/19 likely source spontaneous bacterial peritonitis resolved * Repeat blood cultures no growth * Last dose of ceftriaxone 09/23 * Cefdinir 300 mg twice daily through October 29 Liver disease d/t etoh +/- hepatic steatosis Acute alcohol withdrawal, resolved Hepatic encephalopathy, resolved Thrombocytopenia stable CT does demonstrate mild periesophageal varices and recanalized periumbilical vein. Meld-Na score is 21 indicative of a 19% three month mortality. * Continue lactulose maintenance * Continue spironolactone and Lasix maintenance * Clonidine and propranolol for portal hypertension to decrease the risk of bleeding. (gastroenterology 1992 hepatology 2006) * Monitor platelets in the setting of DVT prophylaxis Severe protein calorie malnutrition Debilitation/weakness * Encourage p.o. intake with adequate protein * Continue dysphagia diet per speech therapy * Continue PT and OT Hyponatremia hypokalemia hypomagnesemia: * Repleted Dermatitis, bilateral feet * nystatin and triamcinolone cream added. * Continue current management Code Status: * DNR Diet: * Dysphagia resolved DVT Prophylaxis: * Enoxaparin 40 mg subQ daily Discharge Planning: * Awaiting placement at skilled level Time based billing: * 35 minutes were involved in evaluation of the patient including [id number] evaluation physical examination and discussion with care management team Exam Vital Signs (past 8 hours): - 09/25/25 08:00 Temperature 97.6 F Pulse Rate 54 L Respiratory Rate 16 Blood Pressure 141/84 H Pulse Oximetry 96 Oxygen Flow Rate 0 Fraction of Inspired Oxygen 32 SaO2/FiO2 Ratio 296 Oxygen Delivery Method Room Air Oxygen Flow Rate 0 Objective Labs 09/21/25 06:15 09/24/25 05:10 [facility] Medical History Tobacco dependence Alcohol use disorder, moderate, dependence Fentanyl use disorder, mild, abuse Seizures Amputation finger Onychomycosis Chronic pancreatitis Alcoholic pancreatitis Fracture of finger, distal phalanx, open Fracture of finger, middle phalanx, open Alcohol abuse Back pain Surgical History History of surgical amputation of finger Family History Mother Osteoarthritis Father Alcohol abuse Medical history unknown Social History household members: none alcohol intake: current substance use type: marijuana Assessment & Plan Time-Based Coding :: [TOTAL MINUTES] spent with patient and on the chart (including review of chart, obtaining history, exam, reviewing outside data, placing orders, documenting exam and treatment plan, and counseling patient) on [DATE]. Quality VTE Deep Vein Thrombosis/Pulmonary Embolism Present on Admission: No
--- NOTE | 2025-09-25 11:08 | CM.DPC ---
DCP Cont: Per MD, pt cued up to d/c to [facility] tomorrow 09/26 when the facility can accept. Med rec was finalized and scripts all printed. SW called [facility] and confirmed their fax number (same fax for any of their locations) and faxed facesheet and scripts to [facility] to review for plan of discharge tomorrow 09/26. Son plans to be bedside around 1000 to help determine if he can safely transport vs possible need for private pay cabulance. Cabulance companies closed today Sun so will need to call tomorrow Friday if cabulance needed. SW made [facility] referral but they cannot accept pt's insurance at this time and too far out for start of care. SW made [facility] referral and awaiting confirmation if they can accept. F2F and HH orders completed. STEFFEN Preciado
--- NOTE | 2025-09-25 11:43 | PT.IPTN ---
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 coma (08/31/25) Physical Therapy Treatment Note M2 PT-IP Current Condition Start: 09/03/25 12:04 Freq: NEEDED Status: Active Protocol: Document 09/13/25 12:06 LRN (Rec: 09/13/25 12:34 LRN Laptop) Physical Therapy Current Condition Current Condition Evaluation Date 09/03/25 Treatment Diagnosis weakness Onset Date 08/31/25 M3 PT-IP Subjective Start: 09/03/25 12:04 Freq: NEEDED Status: Active Protocol: Document 09/25/25 11:51 NW (Rec: 09/25/25 11:59 NW [id number]) Subjective Physical Therapy Visit Type Type Treatment Note Visit Start Time 11:20 Visit Stop Time 11:43 Number of ASSOCIATE SALES Visits 0 Physical Therapy Visit Comments Patient Comments Pt is alert and orientated and wants to walk. Patient Goals to leave the hospital M4 PT-IP Mobility and Gait Start: 09/03/25 12:04 Freq: NEEDED Status: Active Protocol: Document 09/25/25 11:51 NW (Rec: 09/25/25 11:59 NW [id number]) PT-Bed Mobility Assessment Supine to Sit Supine to Sit Standby Assistance,Head of Bed Elevated,Bedrails Scooting Scooting to Edge of Standby Assistance Bed PT-Transfer Assessment Sit to and From Stand Sit to and from Contact Guard Assistance,1 Person Assistance,Use of Stand Upper Extremities Equipment Transfer Assistive Gait Belt,Front Wheeled Walker Device Transfers Transfer Destination Bed,Chair Transfer Technique Stand Step Pivot Transfer Ability Level of Assist Contact Guard Assistance,1 Person Assistance,Use of Upper Extremities Comments Mobility Comments Utilizes momentum to assume stance with bilateral UE support on FWW, cues to alter with unilateral or push up from surface secondary to falls risk. Upon stance utilizes posterior support for stability, is able to self correct to stand with FWW and without UE support to assist with brief and toileting tasks in stance. STS x 4 throughout session. Gait Assessment Gait Gait Assistance Contact Guard Assist Required: Distance (Feet) 220 Able to Maintain Yes Weight Bearing Status During Gait Assistive Devices Assistive Device Gait Belt,Front Wheeled Walker Gait Deviations General Gait Pattern Decreased Stride Length,Decreased Feet Clearance,Step- to Gait,Wide Based Gait Factors Limiting Gait Function Factors Limiting Decreased Activity Tolerance,Decreased Strength,Poor Gait Function Balance,Poor Safety Awareness Comments Gait Comments Ambulated over two unequal bouts with a seated rest break for 2-3 minutes from a WC follow. Occasional assistance with AD management as pt increases flexed trunk and does not maintain being in the walker. Cued to assess fatigue level with regards to scuffing feet on ground. PT-Balance Assessment Sitting Balance and Reactions Static Sitting Good Balance Ability Dynamic Sitting Fair Balance Ability Standing Balance and Reactions Static Standing Fair Balance Ability Dynamic Standing Poor Balance Ability Device Used FWW M5 PT-IP Objective Assessments Start: 09/03/25 12:04 Freq: NEEDED Status: Active Protocol: Document 09/13/25 12:06 LRN (Rec: 09/13/25 12:34 LRN Laptop) Orientation Orientation/Cognition Orientation Name Comments Continue to re-orientate M6 PT-IP Treatment Start: 09/03/25 12:04 Freq: NEEDED Status: Active Protocol: Document 09/25/25 11:51 NW (Rec: 09/25/25 11:59 NW [id number]) Physical Therapy Treatment Education Education Provided Safety Other Treatments Other Treatment AD management education with regards to activity Performed tolerance and ambulation. Importance of time spent out of bed to assist with improved activity tolerance and core strength. M7 PT-IP Assessment and Plan Start: 09/03/25 12:04 Freq: NEEDED Status: Active Protocol: Document 09/25/25 11:51 NW (Rec: 09/25/25 11:59 NW [id number]) PT Summary Assessment and Plan Potential Rehabilitation Good Potential Status of Condition Evolving at Evaluation Summary Impairments Pain,Strength,Balance,Sensation,Cognition,Bed Mobility, Transfers,Gait,Activity Tolerance Assessment Summary Pt has made considerable progress in being SBA for bed mobility, CGA for transfers and gait of 220 ft in two bouts with FWW with cues for safety awareness and AD management. Demonstrates signs of fatigue and vitals respond appropriately with rest. Pt is still unable to care for self and needs assistance for safety awareness and continues to have decreased activity tolerance. Continue to recommend SNF and/or CUSTODIAL upon discharge. Goals Bed Mobility Goal Independent Transfer Goal Standby Assistance Gait Goal Standby Assistance Gait Distance 300 Days to Meet Goals 3 Treatment Plan Physical Therapy Bed Mobility Training,Transfer Training,Gait Training, Treatment Plan Therapeutic Exercise,Balance Retraining,Discharge Planning Other FWW for transfers Recommendations and Next Treatment Focus Precautions Other Precautions falls risk Recommendations To Nursing Amount of Assist 1 Person Assist Needed Discharge Recommendations PT Discharge SNF Rehab Recommendations Other Discharge [facility] with assistance Recommendations - PT assist 1
[2025-09-25] MEDS: CEFDINIR 300 MG CAPSULE PO (19:50)
[2025-09-25 19:59] VITALS: BP 120/70; PULSE 60; RESP 18; TEMP 37; O2SAT 97
[2025-09-26 08:00] VITALS: BP 110/64; PULSE 64; RESP 18; TEMP 36.7; O2SAT 97
--- NOTE | 2025-09-26 08:24 | CM.DPC ---
Addendum entered by STEFFEN Preciado 09/26/25 11:14: ADD: Updated pt's POA Carmen via phone and she remains agreeable with d/c plan for today. Observed pt's son bedside and pt dressed and ready to be taken to son's POV for transport to [facility] this morning. Scripts, d/c summary, signed med list, clinicals in packet sent with patient. BF Original Note: DCP Discharge to [facility] Per MD, pt has been stable to d/c to an [facility] on po meds and discharge orders placed and pwk completed. SW had faxed [facility] pt's printed scripts of all his medications yesterday 09/25/25. Attempted to set up HH for the patient and [facility] declined due to insurance and [facility] willing to accept and try to work with pt (hesitant due to his long hx of chronic ETOH) at Adult Family [facility] and d/c summary, F2F and HH orders sent to [facility]. Spoke to pt's son and he confirms that he will be bedside around 1000 this AM to provide transport for his dad to the [facility] and requested he bring in clothes for transport. Per PT/RN, pt was able to ambulate the halls yesterday and stand with FWW and should be able to safely transport via son POV with requested no stops. Called Woody at [facility] and he confirms they can still accept the pt today and aware of time for transport and updated him that scripts were sent in to [facility] yesterday. Updated stone and concrete washer, ACCOUNT RECEIVABLE ASSOCIATE, and RN and will send discharge summary and signed med list with pt to [facility] today. STEFFEN Preciado
--- NOTE | 2025-09-26 08:33 | P.DS_ITS ---
History of Present Illness History of Present Illness Date Patient Seen: 09/26/25 Time Patient Seen: 08:34 Chief complaint: Acute liver failure hepatic encephalopathy alcohol Narrative: Chief complaint: Alcohol withdrawal hepatic encephalopathy Gram-negative zoë sepsis History of present illness: 08/31: 65-year-old male long-term severe alcoholism usually remains isolated was found his son to be in very very poor health looking jaundiced had him brought to the emergency room for evaluation. Past medical history significant for very severe episodes of alcohol withdrawal requiring prolonged intubation for control and cup protection of the airway during sedation at least 4 times Emergency room note: 65-year-old male with a past medical history of alcohol use disorder, pancreatitis, tobacco use who presents to the emergency department with his son for left-sided back pain/concerned for pancreatitis x3 weeks. Patient drinks about a qt of rum a day, last drink was this morning. He has been having pain in the left side of his back that feels similar to pancreatitis pain for the last 3 weeks. He has also been having abdominal bloating. His son convinced him to come to the emergency department today. Patient reports he is not having diarrhea or constipation but does admit to nonbloody vomiting few days ago. Reports tingling in his hands and feet. States he does have a history of withdrawal seizures. He is having pain in the left side of his back with deep breathing. Denies dysuria but reports bloody urine. He denies any prescription medication use, blood thinner use. At the time of my evaluation patient was sedated and not arousable enough to give a history or answer review of systems Findings in the emergency department significant for: Alcohol level 183 Total bili of 10 ammonia of 72 potassium 2.8 sodium 134 lactate of 4.8 initially (2.2 after hydration) PT INR 1.3 PTT 40 platelets 72 Procalcitonin and TSH are and reference range CT of the chest abdomen and pelvis: 1. No acute inflammatory process identified in the abdomen or pelvis. No acute fracture. 2. Diffuse hepatic steatosis. 3. Signs of portal hypertension including small volume of ascites, mild periesophageal varices common recanalized periumbilical vein. 4. Right middle lobe 7 mm pulmonary nodule. Recommend follow-up CT of the chest in 6-12 months. Hospital course: 09/01: Patient is less somnolent today but does not make meaningful verbal responses bilirubin has dropped to 7.8 from 10 pneumonia has dropped from 72-62 potassium was 2.9 09/02: Today patient is less somnolent but still quite confused and somnolent patient appears to have dysphagia bilirubin has de-escalated to 6.5 potassium 3.1 09/03: More alert with improved labs. Weaned phenobarbital. Bili 6.5, NH3 42. 09/05: More alert and most recent Bilirubin is 7.0. AST 97, alk phos 239. Patient and his mother who is POA agreed that other family members could be briefed. Daughter is nurse and granddaughter is a physician. Discussed with his son today. Appropriate for hospice and will need jail care. Tinea pedis rash to be treated. Minimal swallowing noted by speech therapy. Self feeding very limited noted on OT eval. 09/06: Much more alert and verbally argumentative today. He is demanding to go home but is not capable of understanding his physical limitations. Discussed with son who is present. He is not dropping the food down his shirt today but is still unable to swallow so a modified barium swallow will be done. Ammonia level yesterday was less than 9. 09/07: Wax and waning mental status, not oriented to place or year. Required some Ativan for impulsive behavior. 09/08: He was more alert and interactive. He is oriented to hospital and year today. 09/09: Discharge has been delayed due to his insurance and facility reluctance to accept him due to the psychosocial conditions. He has been able to stand up in the room and walk a little bit with physical therapy. He complains of not being fed on his preferred scheduled. He appears very sleepy. His last labs from 09/04 are reviewed. 09/10: Overnight he reportedly appear to aspirate on lactulose so has been NPO today. We will ask speech therapy to see him again. Began on Lasix yesterday and appears less edematous today. Remains confused and jaundiced. Pizarro catheter has very bilious appearing urine. Potassium 2.9 today, after starting Lasix yesterday, so is receiving supplementation. Discharge has been delayed due to his insurance and facility reluctance to accept him due to the psychosocial conditions. 09/11: White blood count 9.3, hemoglobin 10.4, platelets 109. Sodium 133 potassium 3.2. He will receive additional 40 mEq of IV potassium today. Total bilirubin 6.0. AST 74. He is sleeping/sedated from his Librium during my visit. He continues on dysphagia diet per speech therapy re-evaluation yesterday. The caution was to not give him anything to eat or drink if he is sedated. Hopefully stopping the Librium will help that. 09/12: The patient is much more interactive and alert today (after stopping the Librium). He is asking for a shower. He is talking about his dog at home. Potassium is 2.9. Now that he is swallowing well that will be replaced with oral potassium. He will also be started on spironolactone and the Lasix dose will be decreased. 09/13: Edema seems to have worsened with the decrease of Lasix dose. The potassium continues to run low at 3.1. He is receiving an additional 80 mEq p.o. today. The magnesium level is 1.5 so that will be addressed. The hemoglobin has dropped from 10.4 down to 9.5. The platelets have dropped to 99. I called and spoke with his mother about the lack of discharge options as multiple jail facilities have declined. She is coming [place] from out of [place] and is going to ask for assistance finding caregivers for him at his home. 09/14: Per further discussions with social service/interstate planner and his mother we are pivoting to a target of adult family home discharge. Today he is alert and conversant without significant agitation. He is looking forward to a shower. The hemoglobin continues to drop slowly, now down to 9.0. Check B12, folate and iron. His edema seems to have increased so the Lasix dose will be increased back up to 40 mg. The flaking rash on his feet has returned so we will change the topical treatment to nystatin. We will also remove the Pizarro catheter today. His urine continues to be very bilious 09/15: The foot rash does not appear to be responding to tinea treatment so we will treat for eczema with triamcinolone cream. He is feeding himself breakfast today. His mother is working on evaluating several potential adult family homes for him to discharge there soon. He says he is walking with a walker but PT assures me that with a walker he is only able to stand and move slightly sideways so far. His edema appears to be worse. That is likely related to increased oral fluid and dietary salt intake. He is already on Lasix and spironolactone. The hemoglobin has risen to 9.6 today. The sodium is 131 with a potassium of 3.8. The iron level is 106 with a B12 greater than 1000 and a folate of 5.5. 09/16: Hemoglobin drifted back down to 9.0 today. Potassium is 3.4. He continues with significant peripheral edema. He is asleep during my visit today. His mother is looking at/touring adult family homes so discharge plans are steadily coming together. 09/17: He has no complaints. He is alert, appropriate and states no pain or discomfort. He has been up walking with physical therapy. He states that he is ?done with alcohol?. He plans to go to an adult family home in [place] pending final arrangements. He had a 2 L diuresis yesterday and states edema has improved. 09/19: The patient began having fevers ranging from 120.2 to 103.1. He meets SIRS criteria based on tachycardia to 120, tachypnea to 40, hypoxia now requiring 3 L, and fever. This was a significant change in his condition from the day prior. Exam was nonfocal, Abdomen is benign and not consistent with significant ascites. Review of prior imaging shows only minimal ascites. There was not enough fluid to safely perform paracentesis. Labs were sent and demonstrated a new leukocytosis at 17.8, grossly abnormal urine and blood cultures this morning are 2/2 bottles positive for Gram-negative bacilli 09/21: Continuing to improve no fevers in the last 24 hours vital signs stable patient without complaints blood culture positive for E coli pansensitive likely from spontaneous bacterial peritonitis 09/22: Continuing to improve no further fevers 09/23: No further fevers robust appetite 09/24: No further complaints no growth in 2nd blood culture can discontinue IV antibiotics 09/25: IV antibiotics are completed for E coli bacteremia likely source is spontaneous bacterial peritonitis from cirrhosis with ascites 2nd blood culture is no growth deescalate to cefdinir 300 mg p.o. b.i.d. last dose on FridayOctober 29 Review of systems: No fever or chills rigors No chest pain palpitations shortness for breath No abdominal pain nausea vomiting Physical exam: NAD, alert, deeply jaundiced, scleral icterus. Lungs are clear, normal rate and effort. Heart is regular, no murmur gallop or rub. Abdomen is soft, less distended. Extremities 1-2+ bilateral pitting edema Flaking rash on both feet recurring Pizarro has been removed . Escherichia coli M.I.C. RX --------- --- * Amoxicillin/Clavulanate 16 I * Ampicillin >=32 R * Ampicillin/Sulbactam 16 I * Aztreonam <=1 S * Cefepime E-test S * Ceftazidime <=0.5 S * Ceftriaxone <=0.25 S * Cefuroxime 4 S * Ciprofloxacin 0.5 I * Ertapenem <=0.12 S * Gentamicin <=1 S * Levofloxacin 1 I * Meropenem <=0.25 S * Tetracycline >=16 R * Trimethoprim/Sulfamethoxazole <=20 S Assessment and plan: E coli bacteremia 09/19 likely source spontaneous bacterial peritonitis resolved * Repeat blood cultures no growth * Last dose of ceftriaxone 09/23 * Cefdinir 300 mg twice daily through October 29 Liver disease d/t etoh +/- hepatic steatosis Acute alcohol withdrawal, resolved Hepatic encephalopathy, resolved Thrombocytopenia stable CT does demonstrate mild periesophageal varices and recanalized periumbilical vein. Meld-Na score is 21 indicative of a 19% three month mortality. * Continue lactulose maintenance * Continue spironolactone and Lasix maintenance * Clonidine and propranolol for portal hypertension to decrease the risk of bleeding. (gastroenterology 1992 hepatology 2006) * Monitor platelets in the setting of DVT prophylaxis Severe protein calorie malnutrition Debilitation/weakness * Encourage p.o. intake with adequate protein * Continue dysphagia diet per speech therapy * Continue PT and OT Hyponatremia hypokalemia hypomagnesemia: * Repleted Dermatitis, bilateral feet * nystatin and triamcinolone cream added. * Continue current management Code Status: * DNR Diet: * Dysphagia resolved DVT Prophylaxis: * Enoxaparin 40 mg subQ daily Discharge Planning: * Discharge to assisted living Time based billing: * 35 minutes were involved in evaluation of the patient including [id number] evaluation physical examination and discussion with care management team Discharge Providers Provider Date of admission: 08/31/25 15:30 Discharge Date: 09/26/25 Primary care physician: Rocío Roberts DO Consults: 08/31/25 18:13 Consult to Dietitian, Adult Routine Comment: Reason For Exam: Malnutrition severe 09/02/25 10:18 Consult to Speech Therapy Evaluate & Treat Comment: Physician Instructions: Evaluate and treat 09/03/25 10:15 Consult to Occupational Therapy Evaluate & Treat Comment: Physician Instructions: Evaluate and treat Consult to Physical Therapy Evaluate & Treat Comment: Physician Instructions: Evaluate and Treat 09/06/25 09:43 Consult to Dietitian, Adult Routine Comment: Reason For Exam: NPO status 09/10/25 16:00 Consult to Speech Therapy Evaluate & Treat Comment: Physician Instructions: Evaluate and treat 09/12/25 12:03 Consult to Pharmacy Routine Comment: fall risk 09/23/25 07:49 Consult to Home Health Routine Comment: PT, OT, Bath Aide Reason For Exam: Home Health Services Discharge provider: Foster Lua MD Exam Vital Signs (past 8 hours): Fraction of Inspired Oxygen 32 SaO2/FiO2 Ratio 296 Oxygen Delivery Method Room Air Oxygen Flow Rate 0 Objective Labs 09/21/25 06:15 09/24/25 05:10 [facility] Medical History Tobacco dependence Alcohol use disorder, moderate, dependence Fentanyl use disorder, mild, abuse Seizures Amputation finger Onychomycosis Chronic pancreatitis Alcoholic pancreatitis Fracture of finger, distal phalanx, open Fracture of finger, middle phalanx, open Alcohol abuse Back pain Surgical History History of surgical amputation of finger Family History Mother Osteoarthritis Father Alcohol abuse Medical history unknown Social History household members: none alcohol intake: current substance use type: marijuana Discharge Plan Discharge Plan Patient Disposition: Assisted Living Discharge orders & Medications Discharge Orders: Discharge (Order); Ordered 09/26/25 Ordered By: Foster Lua Prescriptions: New furosemide 40 mg Tablet 40 mg PO DAILY Qty: 90 0RF clonidine HCl 0.1 mg Tablet 0.1 mg PO BID Qty: 180 0RF magnesium oxide 400 mg (241.3 mg magnesium) Tablet 400 mg PO BID Qty: 180 0RF folic acid 1 mg Tablet 1 mg PO DAILY Qty: 90 0RF lactulose 10 gram/15 mL Solution 20 gm PO TID Qty: 2000 0RF multivitamin with folic acid [Tab-A-Andrae] 400 mcg Tablet 1 tab PO DAILY Qty: 90 0RF nicotine 14 mg/24 hr Patch 24 Hour 14 mg topical DAILY Qty: 10 0RF triamcinolone acetonide 0.5 % Cream 1 applic topical BID PRN (Reason: Rash) Qty: 60 0RF spironolactone 25 mg Tablet 25 mg PO DAILY Qty: 90 0RF propranolol 10 mg Tablet 10 mg PO BID Qty: 180 0RF nystatin 100,000 unit/gram Cream 1 applic topical TID Qty: 60 0RF cefdinir 300 mg capsule 300 mg PO BID Qty: 10 0RF Follow up/Referrals: Rocío Roberts DO [Primary Care Provider, Family Practice] Visit Report/Discharge Packet Stand Alone Forms: [employer], Patient Portal/API, Stroke Signs & Symptoms, Influenza Vaccine Info, Notice of Privacy Practices, Inpatient vs Outpatient, Pneumococcal Vaccine Info, Pt. Rights & Responsibilities Discharge Data Primary Care Provider: Rocío Roberts Quality VTE Deep Vein Thrombosis/Pulmonary Embolism Present on Admission: No
[2025-09-26 09:20] VITALS: BP 110/64; PULSE 64
[2025-09-26] MEDS: FUROSEMIDE 40 MG TABLET PO (09:20)
[2025-09-26] MEDS: MULTIVITAMIN 1 TABLET 1 TAB PO (09:20)
[2025-09-26] MEDS: SPIRONOLACTONE 25 MG TABLET PO (09:20)
[2025-09-26] MEDS: CEFDINIR 300 MG CAPSULE PO (09:20)
[2025-09-26] MEDS: PROPRANOLOL 10 MG TABLET PO (09:20)
[2025-09-26] MEDS: ENOXAPARIN 40 MG/0.4 ML SYRINGE SUBCUT (09:21)
[2025-09-26] MEDS: MAGNESIUM OXIDE 400 MG TABLET PO (09:21)
[2025-09-26] MEDS: FOLIC ACID 1 MG TABLET PO (09:21)
[2025-09-26] MEDS: NICOTINE 14 PATCH 14 MG TOP (09:22)
--- NOTE | 2025-09-26 10:34 | PC.NURSE ---
1022: discharge instructions given to pt and son. Packet for Adult living given to son. PIV removed. VS stable. Pt transported to private vehicle at main entrance via wheelchair.
== END 2025-09-26 10:22 | DRG 280 ==
LOC: ED 15:11 → AC 15:31
PROVIDERS: Family Medicine; Internal Medicine Infectious Disease; Pharmacist Pharmacist Clinician (PhC)/ Clinical Pharmacy Specialist; Admitting Provider Internal Medicine; Emergency Provider Physician Assistant; PCP Family Medicine; Referring Provider Physician Assistant; Visit Provider Internal Medicine
DX: K70.40 Alcoholic hepatic failure without coma (principal); K76.82 Hepatic encephalopathy; E43 Unspecified severe protein-calorie malnutrition; F17.200 Nicotine dependence, unspecified, uncomplicated; F10.26 Alcohol dependence with alcohol-induced persisting amnestic disorder; F10.239 Alcohol dependence with withdrawal, unspecified; R13.10 Dysphagia, unspecified; H10.9 Unspecified conjunctivitis; R53.1 Weakness; E87.6 Hypokalemia; E83.42 Hypomagnesemia; R60.1 Generalized edema; D53.9 Nutritional anemia, unspecified; D69.6 Thrombocytopenia, unspecified; K76.0 Fatty (change of) liver, not elsewhere classified; L30.9 Dermatitis, unspecified; A41.51 Sepsis due to Escherichia coli [E. coli]; K65.2 Spontaneous bacterial peritonitis; K70.31 Alcoholic cirrhosis of liver with ascites; E87.1 Hypo-osmolality and hyponatremia; Y90.6 Blood alcohol level of 120-199 mg/100 ml; Z66 Do not resuscitate; Z68.25 Body mass index [BMI] 25.0-25.9, adult
CPT/HCPCS: 36415; 71045; 74177; 74230; 80048; 80053; 80320; 81001; 82140; 82607; 82746; 83540; 83550; 83605; 83690; 83735; 84132; 84145; 85007; 85025; 85610; 85730; 86850; 86900; 86901; 87040; 87077; 87086; 87154; 87186; 92526; 92610; 92611; 93005; 94760; 96365; 96366; 96367; 96368; 96375; 97110; 97116; 97162; 97166; 97530; 97535; 99284; A9270; J0696; J1650; J2060; J2405; J2560; J3475; J7030; J7050; P9045; Q9967